=== PATIENT | female | born 1955 | race Caucasian/White ===

== ENCOUNTER 2022-09-27 12:08 | Inpatient (IN) | payer BC, OTHER ==
--- OUTSIDE RECORDS SUMMARY | 2022-09-27 12:16 | XMS REPORT | Continuity of Care Document ---
:1955 Author Organization [facility] t Address [address] [facility] [address] [place] [address] Care Team Providers Name Role Phone [place] PORTER Primary Care Physician [phone] DONN Attending Clinician Unavailable DONN Admitting Clinician Unavailable Payers Payer Name Policy Type Policy Number Effective Date Expiration Date S ilir [employer] [id number] 2022 (MEDICARE 00:00:00 REPLACEMENT HMO) Problems This patient has no known problems. Allergies, Adverse Reactions, Alerts Allergy Allergy Status Severity Reaction(s) Onset Inactive Treating Comm ents Source Name Type Date Date Clinician Sulfa Propensi Active (Sulfona ty to 3-05 mide adverse 00:00: Antibiot reaction 00 ics) to drug Medications Ordered Filled Start Stop Current Ordering Indication Dosage Frequency Signature Comments Components Source Medication Medication Date Date Medication? Clinician (SIG) Name Name Dose 2021-05 No 20 Unknown 2- 00:00: 00 TAKE 2 2021-05 No 250 TABLETS ON 212 DAY 1 THEN 00:00: TAKE 1 00 TABLET A DAY FOR 4 DAYS. PREGABALIN 2021-05 No 300 300 MG 2 CAPSULE</Te 00:00: xt> <Code> 00 <Value>0022 [id number]&amp ;lt;/Value> <CodingSyst em>NDC</Cod ingSystem> </Code> Dose 2021-05 No Unknown 2-12 00:00: 00 Dose 2021-05 No Unknown 2- 00:00: 00 Dose 2021-05 No Unknown 2- 00:00: 00 Dose 2021-05 No Unknown 2- 00:00: 00 INHALE 1 2021-05 No [id number] PUFF TWICE 2-12 5 DAILY. 00:00: 00 INHALE 2 2021-05 [place] [id number] PUFFS EVERY 2-12 4 TO 6 00:00: HOURS 00 NEEDED. PROAIR HFA 2021-05 No 90 MCG 2-12 INHALER</Te 00:00: xt> <Code> 00 <Value>[id number]&amp ;lt;/Value> <CodingSyst em>NDC</Cod ingSystem> </Code> Dose 2021-05 No Unknown 2-12 00:00: 00 AMOX-CLAV 2021-05 No 875-125 MG 2-12 TABLET</Nicolás 00:00: t> <Code> 00 <Value>[id number]</Va lue> <CodingSyst em>NDC</Cod ingSystem> </Code& gt HYDROCHLORO 2021-05 No 25 THIAZIDE 25 2-12 MG 00:00: TAB</Text> 00 <Code> <Value>0017 [id number]</Va lue> <CodingSyst em>NDC</Cod ingSystem> </Code& TAKE 2021-05 No 20 TABLET AT 2-12 BEDTIME. 00:00: 00 Dose 2021-05 No Unknown 2-12 00:00: 00 PREGABALIN 2021-05 No 150 150 MG 2-12 CAPSULE</Te 00:00: xt> <Code> 00 <Value>0022 [id number]&amp ;lt;/Value> <CodingSyst em>NDC</Cod ingSystem> </Code> TAKE 5 ML 2021-05 No [id number] DAILY AT 2-12 BEDTIME. 00:00: 00 TAKE 2021-05 No 160 TABLET 2-12 DAILY. 00:00: 00 TAKE 2021-05 No 300 CAPSULE BY 2-12 MOUTH THREE 00:00: TIMES DAILY 00 Dose 2021-05 No Unknown 2-12 00:00: 00 TAKE 2021-05 No 800 TABLET 4 2-12 TIMES 00:00: DAILY. 00 Dose 2021-05 No Unknown 2-12 00:00: 00 PREGABALIN No 300 MG 9-19 CAPSULE 00:00: 00 PREGABALIN No 300 MG 9-19 CAPSULE 00:00: 00 PREGABALIN 2022-0 No 300 MG 9-19 CAPSULE 00:00: 00 PREGABALIN 2022-0 No 300 MG 9-19 CAPSULE 00:00: 00 Lyrica 150 2022-0 No 1mg mg capsule 8-16 00:00: 00 &lt 2022-0 No 300 8-16 00:00: 00 Dose 2022-0 No 20 Unknown 8- 00:00: 00 Dose 2022-0 No 20 Unknown 8- 00:00: 00 Dose 2022-0 No 20 Unknown 8- 00:00: 00 &lt 2022-0 No 300 8- 00:00: 00 &lt 2022-0 No 300 8- 00:00: 00 Dose 2022-0 No 20 Unknown 8- 00:00: 00 &lt 2022-0 No 300 8- 00:00: 00 Dose 2022-0 No 20 Unknown 8 00:00: 00 Dose 2022-0 No Unknown 8- 00:00: 00 Lyrica 150 2022-0 No 1mg mg capsule 8-16 00:00: 00 &lt 2022-0 No 300 8- 00:00: 00 Dose 2022-0 No 20 Unknown 8- 00:00: 00 Dose 2022-0 No 20 Unknown 8 00:00: 00 Dose 2022-0 No 20 Unknown 8- 00:00: 00 &lt 2022-0 No 300 8- 00:00: 00 &lt 2022-0 No 300 8- 00:00: 00 Dose 2022-0 No 20 Unknown 8- 00:00: 00 &lt 2022-0 No 300 8- 00:00: 00 Dose 2022-0 No 20 Unknown 8- 00:00: 00 Dose 2022-0 No Unknown 8- 00:00: 00 Lyrica 150 2022-0 No 1mg mg capsule 8-16 00:00: 00 &lt 2022-0 No 300 8-16 00:00: 00 Dose 2022-0 No 20 Unknown 8-16 00:00: 00 Dose 2022-0 No 20 Unknown 8- 00:00: 00 Dose 2022-0 No 20 Unknown 8- 00:00: 00 &lt 2022-0 No 300 8- 00:00: 00 &lt 2022-0 No 300 8-16 00:00: 00 Dose 2022-0 No 20 Unknown 8-16 00:00: 00 &lt 2022-0 No 300 8-16 00:00: 00 Dose 2022-0 No 20 Unknown 8-16 00:00: 00 Dose 2022-0 No Unknown 8-16 00:00: 00 Lyrica 150 2022-0 No 1mg mg capsule 8-16 00:00: 00 &lt 2022-0 No 300 8-16 00:00: 00 Dose 2022-0 No 20 Unknown 8-16 00:00: 00 Dose 2022-0 No 20 Unknown 8-16 00:00: 00 Dose 2022-0 No 20 Unknown 8-16 00:00: 00 &lt 2022-0 No 300 8-16 00:00: 00 &lt 2022-0 No 300 8-16 00:00: 00 Dose 2022-0 No 20 Unknown 8-16 00:00: 00 &lt 2022-0 No 300 8-16 00:00: 00 Dose 2022-0 No 20 Unknown 8-16 00:00: 00 Dose 2022-0 No Unknown 8-16 00:00: 00 Dose 2022-0 No 20 Unknown 8-15 00:00: 00 &lt 2022-0 No 300 8-15 00:00: 00 Dose 2022-0 No 20 Unknown 8-15 00:00: 00 &lt 2022-0 No 300 8-15 00:00: 00 Dose 2022-0 No 20 Unknown 8-15 00:00: 00 &lt 2022-0 No 300 8-15 00:00: 00 Dose 2022-0 No 20 Unknown 8-15 00:00: 00 &lt 2022-0 No 300 8-15 00:00: 00 azithromyci 2022-0 No mg n 250 mg 7-15 tablet 00:00: 00 prednisone 2022-0 No mg 20 mg 7-15 tablet 00:00: 00 Lyrica 150 2022-0 No 1mg mg capsule 7-15 00:00: 00 TAKE 1 2022-0 No 875 TABLET BY 7-15 MOUTH TWICE 00:00: DAILY 00 Dose 2022-0 No 250 Unknown 7-15 00:00: 00 &lt 2022-0 No 300 7-15 00:00: 00 azithromyci 2022-0 No mg n 250 mg 7-15 tablet 00:00: 00 prednisone 2022-0 No mg 20 mg 7-15 tablet 00:00: 00 Lyrica 150 2022-0 No 1mg mg capsule 715 00:00: 00 TAKE 1 2022-0 No 875 TABLET BY 7-15 MOUTH TWICE 00:00: DAILY 00 Dose 2022-0 No 250 Unknown 7 00:00: 00 &lt 2022-0 No 300 7-15 00:00: 00 azithromyci 2022-0 No mg n 250 mg 7-15 tablet 00:00: 00 prednisone 2022-0 No mg 20 mg 7-15 tablet 00:00: 00 Lyrica 150 2022-0 No 1mg mg capsule 11-30 00:00: 00 TAKE 1 2022-0 No 875 TABLET BY 7-15 MOUTH TWICE 00:00: DAILY 00 Dose 2022-0 No 250 Unknown 11-30 00:00: 00 &lt 2022-0 No 300 11-30 00:00: 00 azithromyci 2022-0 No mg n 250 mg 7-15 tablet 00:00: 00 prednisone 2022-0 No mg 20 mg 7-15 tablet 00:00: 00 Lyrica 150 2022-0 No 1mg mg capsule 11-30 00:00: 00 TAKE 1 2022-0 No 875 TABLET BY 7-15 MOUTH TWICE 00:00: DAILY 00 Dose 2022-0 No 250 Unknown 11-30 00:00: 00 &lt 2022-0 No 300 11-30 00:00: 00 pregabalin 2022-0 No 1mg 300 mg 7-06 capsule 00:00: 00 &lt 2022-0 No 20 11-21 00:00: 00 TAKE 1 2022-0 No 600 TABLET BY 7-06 MOUTH FOUR 00:00: TIMES DAILY 00 &lt 2022-0 No 300 - 00:00: 00 Dose 2022-0 No 250 Unknown 11-21 00:00: 00 &lt 2022-0 No 20 - 00:00: 00 pregabalin 2022-0 No 1mg 300 mg 7-06 capsule 00:00: 00 &lt 2022-0 No 20 11-21 00:00: 00 TAKE 1 2022-0 No 600 TABLET BY 7-06 MOUTH FOUR 00:00: TIMES DAILY 00 &lt 2022-0 No 300 - 00:00: 00 Dose 2022-0 No 250 Unknown 11-21 00:00: 00 &lt 2022-0 No 20 11-21 00:00: 00 pregabalin 2022-0 No 1mg 300 mg 7- capsule 00:00: 00 &lt 2022-0 No 20 11-21 00:00: 00 TAKE 1 2022-0 No 600 TABLET BY 11-21 MOUTH FOUR 00:00: TIMES DAILY 00 &lt 2022-0 No 300 11-21 00:00: 00 Dose 2022-0 No 250 Unknown 11-21 00:00: 00 &lt 2022-0 No 20 11-21 00:00: 00 pregabalin 2022-0 No 1mg 300 mg 7- capsule 00:00: 00 &lt 2022-0 No 20 11-21 00:00: 00 TAKE 1 2022-0 No 600 TABLET BY 11-21 MOUTH FOUR 00:00: TIMES DAILY 00 &lt 2022-0 No 300 11-21 00:00: 00 Dose 2022-0 No 250 Unknown 11-21 00:00: 00 &lt 2022-0 No 20 11-21 00:00: 00 pregabalin 2022-0 No 1mg 300 mg 6-06 capsule 00:00: 00 &lt 2022-0 No 6-06 00:00: 00 pregabalin 2022-0 No 1mg 300 mg 6-06 capsule 00:00: 00 &lt 2022-0 No 6-06 00:00: 00 pregabalin 2022-0 No 1mg 300 mg 6-06 capsule 00:00: 00 &lt 2022-0 No 6-06 00:00: 00 pregabalin 2022-0 No 1mg 300 mg 6-06 capsule 00:00: 00 &lt 2022-0 No 6-06 00:00: 00 pregabalin 2022-0 No 1mg 300 mg 5-05 capsule 00:00: 00 pregabalin 2022-0 No 1mg 300 mg 5-05 capsule 00:00: 00 pregabalin 2022-0 No 1mg 300 mg 5-05 capsule 00:00: 00 pregabalin 2022-0 No 1mg 300 mg 5-05 capsule 00:00: 00 Dose 2022-0 No Unknown 4-07 00:00: 00 Dose 2022-0 No Unknown 4-07 00:00: 00 Dose 2022-0 No Unknown 4-07 00:00: 00 Dose 2022-0 No Unknown 4-07 00:00: 00 amoxicillin 2-0 No 1mg 875 3-30 mg-potassiu 00:00: m 00 clavulanate 125 mg tablet Bromfed DM 2021-0 No 10mg/5 2 mg-30 3-30 mL mg-10 mg/5 00:00: mL oral 00 syrup Dose 2-0 No Unknown 3-30 00:00: 00 Dose 2022-0 No Unknown 3-30 00:00: 00 Dose 2022-0 No Unknown 3-30 00:00: 00 Dose 2022-0 No Unknown 3-30 00:00: 00 Dose 2022-0 No Unknown 3-30 00:00: 00 Dose 2022-0 No Unknown 3-30 00:00: 00 Dose 2022-0 No Unknown 3-30 00:00: 00 Dose 2022-0 No Unknown 3-30 00:00: 00 Dose 2022-0 No Unknown 3-30 00:00: 00 Dose 2022-0 No Unknown 3-30 00:00: 00 Dose 2022-0 No Unknown 3-30 00:00: 00 Dose 2022-0 No Unknown 3-30 00:00: 00 Dose 2022-0 No Unknown 3-30 00:00: 00 Dose 2022-0 No Unknown 3-30 00:00: 00 Dose 2022-0 No Unknown 3-30 00:00: 00 Dose 2022-0 No Unknown 3-30 00:00: 00 Dose 2022-0 No Unknown 3-30 00:00: 00 Dose 2022-0 No Unknown 3-30 00:00: 00 Dose 2022-0 No Unknown 3-30 00:00: 00 Dose 2022-0 No Unknown 3-30 00:00: 00 Dose 2022-0 No Unknown 3-30 00:00: 00 Dose 2022-0 No Unknown 3-30 00:00: 00 Dose 2022-0 No Unknown 3-30 00:00: 00 Dose 2022-0 No Unknown 3-30 00:00: 00 Dose 2022-0 No Unknown 3-30 00:00: 00 Dose 2022-0 No Unknown 3-30 00:00: 00 Dose 2022-0 No Unknown 3-30 00:00: 00 Dose 2022-0 No Unknown 3-30 00:00: 00 Dose 2022-0 No Unknown 3-30 00:00: 00 Dose 2022-0 No Unknown 3-30 00:00: 00 Dose 2022-0 No Unknown 3-30 00:00: 00 Dose 2022-0 No Unknown 3-30 00:00: 00 Dose 2022-0 No Unknown 3-30 00:00: 00 Dose 2022-0 No Unknown 3-30 00:00: 00 Dose 2022-0 No Unknown 3-30 00:00: 00 Dose 2022-0 No Unknown 3-30 00:00: 00 Dose 2022-0 No Unknown 3-30 00:00: 00 Dose 2022-0 No Unknown 3-30 00:00: 00 Dose 2022-0 No Unknown 3-30 00:00: 00 Dose 2022-0 No Unknown 3-30 00:00: 00 amoxicillin 2-0 No 1mg 875 3-30 mg-potassiu 00:00: m 00 clavulanate 125 mg tablet Bromfed DM 2-0 No 10mg/5 2 mg-30 3-30 mL mg-10 mg/5 00:00: mL oral 00 syrup Dose 2-0 No Unknown 3-30 00:00: 00 Dose 2022-0 No Unknown 3-30 00:00: 00 Dose 2022-0 No Unknown 3-30 00:00: 00 Dose 2022-0 No Unknown 3-30 00:00: 00 Dose 2022-0 No Unknown 3-30 00:00: 00 Dose 2022-0 No Unknown 3-30 00:00: 00 Dose 2022-0 No Unknown 3-30 00:00: 00 Dose 2022-0 No Unknown 3-30 00:00: 00 Dose 2022-0 No Unknown 3-30 00:00: 00 Dose 2022-0 No Unknown 3-30 00:00: 00 Dose 2022-0 No Unknown 3-30 00:00: 00 Dose 2022-0 No Unknown 3-30 00:00: 00 Dose 2022-0 No Unknown 3-30 00:00: 00 Dose 2022-0 No Unknown 3-30 00:00: 00 Dose 2022-0 No Unknown 3-30 00:00: 00 Dose 2022-0 No Unknown 3-30 00:00: 00 Dose 2022-0 No Unknown 3-30 00:00: 00 Dose 2022-0 No Unknown 3-30 00:00: 00 Dose 2022-0 No Unknown 3-30 00:00: 00 Dose 2022-0 No Unknown 3-30 00:00: 00 Dose 2022-0 No Unknown 3-30 00:00: 00 Dose 2022-0 No Unknown 3-30 00:00: 00 Dose 2022-0 No Unknown 3-30 00:00: 00 Dose 2022-0 No Unknown 3-30 00:00: 00 Dose 2022-0 No Unknown 3-30 00:00: 00 Dose 2-0 No Unknown 3-30 00:00: 00 Dose 2022-0 No Unknown 3-30 00:00: 00 Dose 2022-0 No Unknown 3-30 00:00: 00 Dose 2022-0 No Unknown 3-30 00:00: 00 Dose 2022-0 No Unknown 3-30 00:00: 00 Dose 2022-0 No Unknown 3-30 00:00: 00 Dose 2022-0 No Unknown 3-30 00:00: 00 Dose 2022-0 No Unknown 3-30 00:00: 00 Dose 2-0 No Unknown 3-30 00:00: 00 Dose 2022-0 No Unknown 3-30 00:00: 00 Dose 2022-0 No Unknown 3-30 00:00: 00 Dose 2022-0 No Unknown 3-30 00:00: 00 Dose 2022-0 No Unknown 3-30 00:00: 00 Dose 2022-0 No Unknown 3-30 00:00: 00 Dose 2022-0 No Unknown 3-30 00:00: 00 amoxicillin 2-0 No 1mg 875 3-30 mg-potassiu 00:00: m 00 clavulanate 125 mg tablet Bromfed DM 2021-0 No 10mg/5 2 mg-30 3-30 mL mg-10 mg/5 00:00: mL oral 00 syrup Dose 2-0 No Unknown 3-30 00:00: 00 Dose 2022-0 No Unknown 3-30 00:00: 00 Dose 2022-0 No Unknown 3-30 00:00: 00 Dose 2022-0 No Unknown 3-30 00:00: 00 Dose 2022-0 No Unknown 3-30 00:00: 00 Dose 2022-0 No Unknown 3-30 00:00: 00 Dose 2022-0 No Unknown 3-30 00:00: 00 Dose 2022-0 No Unknown 3-30 00:00: 00 Dose 2022-0 No Unknown 3-30 00:00: 00 Dose 2022-0 No Unknown 3-30 00:00: 00 Dose 2022-0 No Unknown 3-30 00:00: 00 Dose 2022-0 No Unknown 3-30 00:00: 00 amoxicillin 2022-0 No 1mg 875 3-30 mg-potassiu 00:00: m 00 clavulanate 125 mg tablet Bromfed DM 2-0 No 10mg/5 2 mg-30 3-30 mL mg-10 mg/5 00:00: mL oral 00 syrup Dose 2-0 No Unknown 3-30 00:00: 00 Dose 2022-0 No Unknown 3-30 00:00: 00 Dose 2022-0 No Unknown 3-30 00:00: 00 Dose 2022-0 No Unknown 3-30 00:00: 00 Dose 2022-0 No Unknown 3-30 00:00: 00 Dose 2022-0 No Unknown 3-30 00:00: 00 Dose 2022-0 No Unknown 3-30 00:00: 00 Dose 2022-0 No Unknown 3-30 00:00: 00 Dose 2022-0 No Unknown 3-30 00:00: 00 Dose 2022-0 No Unknown 3-30 00:00: 00 Dose 2022-0 No Unknown 3-30 00:00: 00 Dose 2022-0 No Unknown 3-30 00:00: 00 Dose 2022-0 No Unknown 3-30 00:00: 00 Dose 2022-0 No Unknown 3-30 00:00: 00 Dose 2022-0 No Unknown 3-30 00:00: 00 Dose 2022-0 No Unknown 3-30 00:00: 00 Dose 2022-0 No Unknown 3-30 00:00: 00 Dose 2022-0 No Unknown 3-30 00:00: 00 Dose 2022-0 No Unknown 3-30 00:00: 00 Dose 2022-0 No Unknown 3-30 00:00: 00 Dose 2022-0 No Unknown 3-30 00:00: 00 Dose 2022-0 No Unknown 3-30 00:00: 00 Dose 2022-0 No Unknown 3-30 00:00: 00 Dose 2022-0 No Unknown 3-30 00:00: 00 Dose 2022-0 No Unknown 3-30 00:00: 00 Dose 2022-0 No Unknown 3-30 00:00: 00 Dose 2022-0 No Unknown 3-30 00:00: 00 Dose 2022-0 No Unknown 3-30 00:00: 00 Dose 2022-0 No Unknown 3-30 00:00: 00 Dose 2022-0 No Unknown 3-30 00:00: 00 Dose 2022-0 No Unknown 3-30 00:00: 00 Dose 2022-0 No Unknown 3-30 00:00: 00 Dose 2022-0 No Unknown 3-30 00:00: 00 Dose 2022-0 No Unknown 3-30 00:00: 00 Dose 2022-0 No Unknown 3-30 00:00: 00 Dose 2022-0 No Unknown 3-30 00:00: 00 Dose 2022-0 No Unknown 3-30 00:00: 00 Dose 2022-0 No Unknown 3-30 00:00: 00 Dose 2022-0 No Unknown 3-30 00:00: 00 Dose 2022-0 No Unknown 3-30 00:00: 00 Dose 2022-0 No Unknown 3-30 00:00: 00 Dose 2022-0 No Unknown 3-30 00:00: 00 Dose 2022-0 No Unknown 3-30 00:00: 00 Dose 2022-0 No Unknown 3-30 00:00: 00 Dose 2022-0 No Unknown 3-30 00:00: 00 Dose 2022-0 No Unknown 3-30 00:00: 00 Dose 2022-0 No Unknown 3-30 00:00: 00 Dose 2022-0 No Unknown 3-30 00:00: 00 Dose 2022-0 No Unknown 3-30 00:00: 00 Dose 2022-0 No Unknown 3-30 00:00: 00 Dose 2022-0 No Unknown 3-30 00:00: 00 Dose 2022-0 No Unknown 3-30 00:00: 00 Dose 2022-0 No Unknown 3-30 00:00: 00 Dose 2022-0 No Unknown 3-30 00:00: 00 Dose 2022-0 No Unknown 3-30 00:00: 00 Dose 2022-0 No Unknown 3-30 00:00: 00 Dose 2022-0 No Unknown 3-30 00:00: 00 Dose 2022-0 No Unknown 3-30 00:00: 00 Dose 2022-0 No Unknown 3-30 00:00: 00 Dose 2022-0 No Unknown 3-30 00:00: 00 Dose 2022-0 No Unknown 3-30 00:00: 00 Dose 2022-0 No Unknown 3-30 00:00: 00 Dose 2022-0 No Unknown 3-30 00:00: 00 Dose 2022-0 No Unknown 3-30 00:00: 00 Dose 2022-0 No Unknown 3-30 00:00: 00 Dose 2022-0 No Unknown 3-30 00:00: 00 Dose 2022-0 No Unknown 3-30 00:00: 00 Dose 2022-0 No Unknown 3-30 00:00: 00 Dose 2022-0 No Unknown 3-07 00:00: 00 Dose 2022-0 No Unknown 3-07 00:00: 00 Dose 2022-0 No Unknown 3-07 00:00: 00 Dose 2022-0 No Unknown 3-07 00:00: 00 albuterol 2-0 No 12mcg/a sulfate HFA 2-12 ctuatio 90 00:00: n mcg/actuati 00 on aerosol inhaler albuterol 2-0 No 12mcg/a sulfate HFA 2-12 ctuatio 90 00:00: n mcg/actuati 00 on aerosol inhaler albuterol 2-0 No 12mcg/a sulfate HFA 2-12 ctuatio 90 00:00: n mcg/actuati 00 on aerosol inhaler albuterol 2-0 No 12mcg/a sulfate HFA 2-12 ctuatio 90 00:00: n mcg/actuati 00 on aerosol inhaler pregabalin 2-0 No 1mg 300 mg 2-09 capsule 00:00: 00 pregabalin 2022-0 No 1mg 300 mg 2-09 capsule 00:00: 00 pregabalin 2022-0 No 1mg 300 mg 2-09 capsule 00:00: 00 pregabalin 2022-0 No 1mg 300 mg 2-09 capsule 00:00: 00 ProAir HFA 2022-0 No 12mcg/a 90 1-12 ctuatio mcg/actuati 00:00: n on aerosol 00 inhaler azithromyci 2-0 No mg n 250 mg 1-12 tablet 00:00: 00 prednisone 2022-0 No mg 20 mg 1-12 tablet 00:00: 00 pregabalin 2022-0 No 1mg 300 mg 1-12 capsule 00:00: 00 Bromfed DM 2-0 No 5mg/5 2 mg-30 1-12 mL mg-10 mg/5 00:00: mL oral 00 syrup ipratropium 2-0 No 3mg 0.5 1-12 base)/3 mg-albutero 00:00: mL l 3 mg (2.5 00 mg base)/3 mL nebulizatio n soln ProAir HFA 2-0 No 12mcg/a 90 1-12 ctuatio mcg/actuati 00:00: n on aerosol 00 inhaler azithromyci 2-0 No mg n 250 mg 1-12 tablet 00:00: 00 prednisone 2022-0 No mg 20 mg 1-12 tablet 00:00: 00 ProAir HFA 2-0 No 12mcg/a 90 1-12 ctuatio mcg/actuati 00:00: n on aerosol 00 inhaler azithromyci 2-0 No mg n 250 mg 1-12 tablet 00:00: 00 prednisone 2022-0 No mg 20 mg 1-12 tablet 00:00: 00 pregabalin 2022-0 No 1mg 300 mg 1-12 capsule 00:00: 00 Bromfed DM 2-0 No 5mg/5 2 mg-30 1-12 mL mg-10 mg/5 00:00: mL oral 00 syrup ipratropium 2-0 No 3mg 0.5 1-12 base)/3 mg-albutero 00:00: mL l 3 mg (2.5 00 mg base)/3 mL nebulizatio n soln pregabalin 2-0 No 1mg 300 mg 1-12 capsule 00:00: 00 Bromfed DM 2022-0 No 5mg/5 2 mg-30 1-12 mL mg-10 mg/5 00:00: mL oral 00 syrup ipratropium 2-0 No 3mg 0.5 1-12 base)/3 mg-albutero 00:00: mL l 3 mg (2.5 00 mg base)/3 mL nebulizatio n soln ProAir HFA 2021-0 No 12mcg/a 90 1-12 ctuatio mcg/actuati 00:00: n on aerosol 00 inhaler azithromyci 2021-0 No mg n 250 mg 1-12 tablet 00:00: 00 prednisone 2-0 No mg 20 mg 1-12 tablet 00:00: 00 pregabalin 2021-0 No 1mg 300 mg 1-12 capsule 00:00: 00 Bromfed DM 2021-0 No 5mg/5 2 mg-30 1-12 mL mg-10 mg/5 00:00: mL oral 00 syrup ipratropium 2021-0 No 3mg 0.5 1-12 base)/3 mg-albutero 00:00: mL l 3 mg (2.5 00 mg base)/3 mL nebulizatio n soln pregabalin 2020-1 No 1mg 300 mg 2-16 capsule 00:00: 00 pregabalin 2020-1 No 1mg 300 mg 2-16 capsule 00:00: 00 pregabalin 2020-1 No 1mg 300 mg 2-16 capsule 00:00: 00 pregabalin 2020-1 No 1mg 300 mg 2-16 capsule 00:00: 00 ProAir HFA 2020-1 No 12mcg/a 90 1-17 ctuatio mcg/actuati 00:00: n on aerosol 00 inhaler pregabalin 2020-1 No 1mg 300 mg 1-17 capsule 00:00: 00 ProAir HFA 2020-1 No 12mcg/a 90 1-17 ctuatio mcg/actuati 00:00: n on aerosol 00 inhaler pregabalin 2020-1 No 1mg 300 mg 1-17 capsule 00:00: 00 ProAir HFA 2020-1 No 12mcg/a 90 1-17 ctuatio mcg/actuati 00:00: n on aerosol 00 inhaler pregabalin 1-1 No 1mg 300 mg 1-17 capsule 00:00: 00 ProAir HFA 2020-1 No 12mcg/a 90 1-17 ctuatio mcg/actuati 00:00: n on aerosol 00 inhaler pregabalin 1-1 No 1mg 300 mg 1-17 capsule 00:00: 00 gabapentin 2021-1 No 1mg 600 mg 0-05 tablet 00:00: 00 prednisone 2021-1 No mg 20 mg 0-05 tablet 00:00: 00 gabapentin 2021-1 No 1mg 300 mg 0-05 capsule 00:00: 00 gabapentin 2021-1 No 1mg 600 mg 0-05 tablet 00:00: 00 prednisone 2021-1 No mg 20 mg 0-05 tablet 00:00: 00 gabapentin 1-1 No 1mg 300 mg 0-05 capsule 00:00: 00 gabapentin 1-1 No 1mg 600 mg 0-05 tablet 00:00: 00 prednisone 1-1 No mg 20 mg 0-05 tablet 00:00: 00 gabapentin 1-1 No 1mg 300 mg 0-05 capsule 00:00: 00 gabapentin 1-1 No 1mg 600 mg 0-05 tablet 00:00: 00 prednisone 1-1 No mg 20 mg 0-05 tablet 00:00: 00 gabapentin 1-1 No 1mg 300 mg 0-05 capsule 00:00: 00 ProAir HFA 1-0 No 12mcg/a 90 8-06 ctuatio mcg/actuati 00:00: n on aerosol 00 inhaler ProAir HFA 2020-0 No 12mcg/a 90 8-06 ctuatio mcg/actuati 00:00: n on aerosol 00 inhaler amoxicillin 1-0 No 1mg 875 8-06 mg-potassiu 00:00: m 00 clavulanate 125 mg tablet Dose 1-0 No Unknown 8-06 00:00: 00 gabapentin 2021-0 No 1mg 600 mg 8-06 tablet 00:00: 00 gabapentin 2021-0 No 1mg 600 mg 8-06 tablet 00:00: 00 prednisone 2021-0 No mg 20 mg 8-06 tablet 00:00: 00 prednisone 2021-0 No mg 20 mg 8-06 tablet 00:00: 00 gabapentin 2021-0 No 1mg 300 mg 8-06 capsule 00:00: 00 gabapentin 2021-0 No 1mg 300 mg 8-06 capsule 00:00: 00 ProAir HFA 1-0 No 12mcg/a 90 8-06 ctuatio mcg/actuati 00:00: n on aerosol 00 inhaler ProAir HFA 1-0 No 12mcg/a 90 8-06 ctuatio mcg/actuati 00:00: n on aerosol 00 inhaler amoxicillin 1-0 No 1mg 875 8-06 mg-potassiu 00:00: m 00 clavulanate 125 mg tablet Dose 1-0 No Unknown 8-06 00:00: 00 gabapentin 2021-0 No 1mg 600 mg 8-06 tablet 00:00: 00 gabapentin 2021-0 No 1mg 600 mg 8-06 tablet 00:00: 00 prednisone 2021-0 No mg 20 mg 8-06 tablet 00:00: 00 prednisone 2021-0 No mg 20 mg 8-06 tablet 00:00: 00 gabapentin 2021-0 No 1mg 300 mg 8-06 capsule 00:00: 00 gabapentin 2021-0 No 1mg 300 mg 8-06 capsule 00:00: 00 ProAir HFA 2020-0 No 12mcg/a 90 8-06 ctuatio mcg/actuati 00:00: n on aerosol 00 inhaler ProAir HFA 2020-0 No 12mcg/a 90 8-06 ctuatio mcg/actuati 00:00: n on aerosol 00 inhaler amoxicillin 1-0 No 1mg 875 8-06 mg-potassiu 00:00: m 00 clavulanate 125 mg tablet Dose 2021-0 No Unknown 8-06 00:00: 00 gabapentin 2021-0 No 1mg 600 mg 8-06 tablet 00:00: 00 gabapentin 2021-0 No 1mg 600 mg 8-06 tablet 00:00: 00 prednisone 2021-0 No mg 20 mg 8-06 tablet 00:00: 00 prednisone 2021-0 No mg 20 mg 8-06 tablet 00:00: 00 gabapentin 2021-0 No 1mg 300 mg 8-06 capsule 00:00: 00 gabapentin 2021-0 No 1mg 300 mg 8-06 capsule 00:00: 00 ProAir HFA 1-0 No 12mcg/a 90 8-06 ctuatio mcg/actuati 00:00: n on aerosol 00 inhaler ProAir HFA 2021-0 No 12mcg/a 90 8-06 ctuatio mcg/actuati 00:00: n on aerosol 00 inhaler amoxicillin 1-0 No 1mg 875 8-06 mg-potassiu 00:00: m 00 clavulanate 125 mg tablet Dose 1-0 No Unknown 8-06 00:00: 00 gabapentin 2021-0 No 1mg 600 mg 8-06 tablet 00:00: 00 gabapentin 2021-0 No 1mg 600 mg 8-06 tablet 00:00: 00 prednisone 2021-0 No mg 20 mg 8-06 tablet 00:00: 00 prednisone 2021-0 No mg 20 mg 8-06 tablet 00:00: 00 gabapentin 2021-0 No 1mg 300 mg 8-06 capsule 00:00: 00 gabapentin 2021-0 No 1mg 300 mg 8-06 capsule 00:00: 00 gabapentin 2021-0 No 1mg 600 mg 5-20 tablet 00:00: 00 gabapentin 2021-0 No 1mg 300 mg 5-20 capsule 00:00: 00 gabapentin 2021-0 No 1mg 600 mg 5-20 tablet 00:00: 00 gabapentin 2021-0 No 1mg 300 mg 5-20 capsule 00:00: 00 gabapentin 2021-0 No 1mg 600 mg 5-20 tablet 00:00: 00 gabapentin 2021-0 No 1mg 300 mg 5-20 capsule 00:00: 00 gabapentin 2021-0 No 1mg 600 mg 5-20 tablet 00:00: 00 gabapentin 2021-0 No 1mg 300 mg 5-20 capsule 00:00: 00 gabapentin 2021-0 No 1mg 600 mg 2-23 tablet 00:00: 00 prednisone 2021-0 No mg 20 mg 2-23 tablet 00:00: 00 gabapentin 2021-0 No 1mg 300 mg 2-23 capsule 00:00: 00 ipratropium 2021-0 No 3mg 0.5 2-23 base)/3 mg-albutero 00:00: mL l 3 mg (2.5 00 mg base)/3 mL nebulizatio n soln gabapentin 2021-0 No 1mg 600 mg 2-23 tablet 00:00: 00 prednisone 2021-0 No mg 20 mg 2-23 tablet 00:00: 00 gabapentin 2021-0 No 1mg 300 mg 2-23 capsule 00:00: 00 ipratropium 2021-0 No 3mg 0.5 2-23 base)/3 mg-albutero 00:00: mL l 3 mg (2.5 00 mg base)/3 mL nebulizatio n soln gabapentin 2021-0 No 1mg 600 mg 2-23 tablet 00:00: 00 prednisone 2021-0 No mg 20 mg 2-23 tablet 00:00: 00 gabapentin 2021-0 No 1mg 300 mg 2-23 capsule 00:00: 00 ipratropium 1-0 No 3mg 0.5 2-23 base)/3 mg-albutero 00:00: mL l 3 mg (2.5 00 mg base)/3 mL nebulizatio n soln gabapentin 1-0 No 1mg 600 mg 2-23 tablet 00:00: 00 prednisone 1-0 No mg 20 mg 2-23 tablet 00:00: 00 gabapentin 1-0 No 1mg 300 mg 2-23 capsule 00:00: 00 ipratropium 1-0 No 3mg 0.5 2-23 base)/3 mg-albutero 00:00: mL l 3 mg (2.5 00 mg base)/3 mL nebulizatio n soln amoxicillin 1-0 No 1mg 875 1-14 mg-potassiu 00:00: m 00 clavulanate 125 mg tablet amoxicillin 1-0 No 1mg 875 1-14 mg-potassiu 00:00: m 00 clavulanate 125 mg tablet amoxicillin 1-0 No 1mg 875 1-14 mg-potassiu 00:00: m 00 clavulanate 125 mg tablet amoxicillin 1-0 No 1mg 875 1-14 mg-potassiu 00:00: m 00 clavulanate 125 mg tablet ProAir HFA 2020-0 No 12mcg/a 90 1-04 ctuatio mcg/actuati 00:00: n on aerosol 00 inhaler Combivent 2020-0 No 1mcg/ac Respimat 20 1-04 tuation mcg-100 00:00: mcg/actuati 00 on solution for inhalation prednisone 2020-0 No mg 20 mg 1-04 tablet 00:00: 00 ipratropium 1-0 No 3mg 0.5 1-04 base)/3 mg-albutero 00:00: mL l 3 mg (2.5 00 mg base)/3 mL nebulizatio n soln ProAir HFA 2020-0 No 12mcg/a 90 1-04 ctuatio mcg/actuati 00:00: n on aerosol 00 inhaler Combivent 2020-0 No 1mcg/ac Respimat 20 1-04 tuation mcg-100 00:00: mcg/actuati 00 on solution for inhalation prednisone 2020-0 No mg 20 mg -04 tablet 00:00: 00 ipratropium 2020-0 No 3mg 0.5 1-04 base)/3 mg-albutero 00:00: mL l 3 mg (2.5 00 mg base)/3 mL nebulizatio n soln ProAir HFA 2020-0 No 12mcg/a 90 -04 ctuatio mcg/actuati 00:00: n on aerosol 00 inhaler Combivent 2020-0 No 1mcg/ac Respimat 20 -04 tuation mcg-100 00:00: mcg/actuati 00 on solution for inhalation prednisone 2020-0 No mg 20 mg -04 tablet 00:00: 00 ipratropium 2020-0 No 3mg 0.5 1-04 base)/3 mg-albutero 00:00: mL l 3 mg (2.5 00 mg base)/3 mL nebulizatio n soln ProAir HFA 2020-0 No 12mcg/a 90 -04 ctuatio mcg/actuati 00:00: n on aerosol 00 inhaler Combivent 2020-0 No 1mcg/ac Respimat 20 -04 tuation mcg-100 00:00: mcg/actuati 00 on solution for inhalation prednisone 2020-0 No mg 20 mg 1-04 tablet 00:00: 00 ipratropium 1-0 No 3mg 0.5 1-04 base)/3 mg-albutero 00:00: mL l 3 mg (2.5 00 mg base)/3 mL nebulizatio n soln ProAir HFA 2019-05 No 12mcg/a 90 1-24 ctuatio mcg/actuati 00:00: n on aerosol 00 inhaler ProAir HFA 2019-05 No 12mcg/a 90 1-24 ctuatio mcg/actuati 00:00: n on aerosol 00 inhaler ProAir HFA 2019-05 No 12mcg/a 90 1-24 ctuatio mcg/actuati 00:00: n on aerosol 00 inhaler ProAir HFA 2019-05 No 12mcg/a 90 1-24 ctuatio mcg/actuati 00:00: n on aerosol 00 inhaler ProAir 2019-05 No 1mcg/ac RespiClick 1-23 tuation 90 00:00: mcg/actuati 00 on breath activated gabapentin 2019-05 No 1mg 600 mg 1-23 tablet 00:00: 00 gabapentin 2019- No 1mg 300 mg 1-23 capsule 00:00: 00 ProAir 2019-05 No 1mcg/ac RespiClick 1-23 tuation 90 00:00: mcg/actuati 00 on breath activated gabapentin 2019-05 No 1mg 600 mg 1-23 tablet 00:00: 00 gabapentin 2019- No 1mg 300 mg 1-23 capsule 00:00: 00 ProAir 2019-05 No 1mcg/ac RespiClick 1-23 tuation 90 00:00: mcg/actuati 00 on breath activated gabapentin 2019-05 No 1mg 600 mg 1-23 tablet 00:00: 00 gabapentin 2019- No 1mg 300 mg 1-23 capsule 00:00: 00 ProAir 2019-05 No 1mcg/ac RespiClick 1-23 tuation 90 00:00: mcg/actuati 00 on breath activated gabapentin 2019-05 No 1mg 600 mg 1-23 tablet 00:00: 00 gabapentin 2019- No 1mg 300 mg 1-23 capsule 00:00: 00 Combivent 2019-0 No 1mcg/ac Respimat 20 9-03 tuation mcg-100 00:00: mcg/actuati 00 on solution for inhalation Advair No 1mcg/do Diskus 250 9-03 se mcg-50 00:00: mcg/dose 00 powder for inhalation Advair 2020-0 No 1mcg/do Diskus 250 9-03 se mcg-50 00:00: mcg/dose 00 powder for inhalation gabapentin 2020-0 No 1mg 600 mg 9-03 tablet 00:00: 00 gabapentin 2020-0 No 1mg 300 mg 9-03 capsule 00:00: 00 albuterol 2020-0 No 3mg/3 sulfate 9-03 mL 1.25 mg/3 00:00: mL solution 00 for nebulizatio n ProAir 2020-0 No 1mcg/ac RespiClick 01-19 tuation 90 00:00: mcg/actuati 00 on breath activated Combivent 2020-0 No 1mcg/ac Respimat 20 903 tuation mcg-100 00:00: mcg/actuati 00 on solution for inhalation Advair 2020-0 No 1mcg/do Diskus 250 9-03 se mcg-50 00:00: mcg/dose 00 powder for inhalation Advair 2020-0 No 1mcg/do Diskus 250 9-03 se mcg-50 00:00: mcg/dose 00 powder for inhalation gabapentin 2020-0 No 1mg 600 mg 9-03 tablet 00:00: 00 gabapentin 2020-0 No 1mg 300 mg 9-03 capsule 00:00: 00 albuterol 2020-0 No 3mg/3 sulfate 9-03 mL 1.25 mg/3 00:00: mL solution 00 for nebulizatio n ProAir 2020-0 No 1mcg/ac RespiClick 01-19 tuation 90 00:00: mcg/actuati 00 on breath activated Combivent 2020-0 No 1mcg/ac Respimat 20 903 tuation mcg-100 00:00: mcg/actuati 00 on solution for inhalation Advair 2020-0 No 1mcg/do Diskus 250 9-03 se mcg-50 00:00: mcg/dose 00 powder for inhalation Advair 2020-0 No 1mcg/do Diskus 250 9-03 se mcg-50 00:00: mcg/dose 00 powder for inhalation gabapentin 2020-0 No 1mg 600 mg 9-03 tablet 00:00: 00 gabapentin 2020-0 No 1mg 300 mg 9-03 capsule 00:00: 00 albuterol 2020-0 No 3mg/3 sulfate 9-03 mL 1.25 mg/3 00:00: mL solution 00 for nebulizatio n ProAir 2020-0 No 1mcg/ac RespiClick 9 tuation 90 00:00: mcg/actuati 00 on breath activated Combivent 2020-0 No 1mcg/ac Respimat 20 9-03 tuation mcg-100 00:00: mcg/actuati 00 on solution for inhalation Advair 2020-0 No 1mcg/do Diskus 250 9-03 se mcg-50 00:00: mcg/dose 00 powder for inhalation Advair 2020-0 No 1mcg/do Diskus 250 9-03 se mcg-50 00:00: mcg/dose 00 powder for inhalation gabapentin 2020-0 No 1mg 600 mg 9-03 tablet 00:00: 00 gabapentin 2020-0 No 1mg 300 mg 9-03 capsule 00:00: 00 albuterol 2020-0 No 3mg/3 sulfate 9-03 mL 1.25 mg/3 00:00: mL solution 00 for nebulizatio n ProAir 2020-0 No 1mcg/ac RespiClick 01-19 tuation 90 00:00: mcg/actuati 00 on breath activated gabapentin 2020-0 No 1mg 600 mg 8-14 tablet 00:00: 00 gabapentin 2020-0 No 1mg 600 mg 8-14 tablet 00:00: 00 gabapentin 2020-0 No 1mg 600 mg 8-14 tablet 00:00: 00 gabapentin 2020-0 No 1mg 600 mg 8-14 tablet 00:00: 00 gabapentin 2020-0 No 1mg 300 mg 8-03 capsule 00:00: 00 gabapentin 2020-0 No 1mg 300 mg 8-03 capsule 00:00: 00 gabapentin 2020-0 No 1mg 300 mg 8-03 capsule 00:00: 00 gabapentin 2020-0 No 1mg 300 mg 8-03 capsule 00:00: 00 gabapentin 2020-0 No 1mg 600 mg 7-15 tablet 00:00: 00 gabapentin 2020-0 No 1mg 600 mg 7-15 tablet 00:00: 00 gabapentin 2020-0 No 1mg 600 mg 7-15 tablet 00:00: 00 gabapentin 2020-0 No 1mg 600 mg 7-15 tablet 00:00: 00 amoxicillin 2019-0 No 1mg 500 mg 3-05 tablet 00:00: 00 prednisone 2019-0 No 1mg 20 mg 3-05 tablet 00:00: 00 amoxicillin 2019-0 No 1mg 500 mg 3-05 tablet 00:00: 00 amoxicillin 2019-0 No 1mg 500 mg 3-05 tablet 00:00: 00 prednisone 2019-0 No 1mg 20 mg 3-05 tablet 00:00: 00 prednisone 2019-0 No 1mg 20 mg 3-05 tablet 00:00: 00 amoxicillin 2019-0 No 1mg 500 mg 3-05 tablet 00:00: 00 prednisone 2019-0 No 1mg 20 mg 3-05 tablet 00:00: 00 Vital Signs Vital Name Observation Time Observation Value Comments Source BP Systolic 2022-03-26 10:04:00 148 mm[Hg] BP Diastolic 2022-03-26 10:04:00 85 mm[Hg] Weight Measured 2022-03-26 10:04:00 153.40 pounds Height Measured 2022-03-26 10:04:00 60.00 inches Body Temperature 2022-03-26 10:04:00 98.30 degrees Heart Rate 2022-03-26 10:04:00 94.00 /min Respiratory Rate 2022-03-26 10:04:00 18.00 /min BP Systolic 2022-02-25 11:08:00 151 mm[Hg] BP Diastolic 2022-02-25 11:08:00 77 mm[Hg] Weight Measured 2022-02-25 11:08:00 151.80 pounds Height Measured 2022-02-25 11:08:00 60.00 inches Body Temperature 2022-02-25 11:08:00 98.10 degrees Heart Rate 2022-02-25 11:08:00 95.00 /min Respiratory Rate 2022-02-25 11:08:00 BP Systolic 2021-11-30 11:14:00 137 mm[Hg] BP Diastolic 2021-11-30 11:14:00 78 mm[Hg] Weight Measured 2021-11-30 11:14:00 144.20 pounds Height Measured 2021-11-30 11:14:00 60.00 inches Body Temperature 2021-11-30 11:14:00 98.00 degrees Heart Rate 2021-11-30 11:14:00 84.00 /min Respiratory Rate 2021-11-30 11:14:00 18.00 /min BP Systolic 2021-08-15 11:36:00 120 mm[Hg] BP Diastolic 2021-08-15 11:36:00 71 mm[Hg] Weight Measured 2021-08-15 11:36:00 Height Measured 2021-08-15 11:36:00 Body Temperature 2021-08-15 11:36:00 Heart Rate 2021-08-15 11:36:00 Respiratory Rate 2021-08-15 11:36:00 BP Systolic 2021-05-30 10:32:00 135 mm[Hg] BP Diastolic 2021-05-30 10:32:00 77 mm[Hg] Weight Measured 2021-05-30 10:32:00 145.80 pounds Height Measured 2021-05-30 10:32:00 60.00 inches Body Temperature 2021-05-30 10:32:00 97.20 degrees Heart Rate 2021-05-30 10:32:00 94.00 /min Respiratory Rate 2021-05-30 10:32:00 16.00 /min BP Systolic 2021-04-04 14:16:00 169 mm[Hg] BP Diastolic 2021-04-04 14:16:00 79 mm[Hg] Weight Measured 2021-04-04 14:16:00 144.20 pounds Height Measured 2021-04-04 14:16:00 60.00 inches Body Temperature 2021-04-04 14:16:00 98.20 degrees Heart Rate 2021-04-04 14:16:00 98.00 /min Respiratory Rate 2021-04-04 14:16:00 16.00 /min BP Systolic 2021-02-20 14:46:00 BP Diastolic 2021-02-20 14:46:00 Weight Measured 2021-02-20 14:46:00 130.00 pounds Height Measured 2021-02-20 14:46:00 60.00 inches Body Temperature 2021-02-20 14:46:00 Heart Rate 2021-02-20 14:46:00 Respiratory Rate 2021-02-20 14:46:00 BP Systolic 2020-12-22 14:19:00 BP Diastolic 2020-12-22 14:19:00 Weight Measured 2020-12-22 14:19:00 130.00 pounds Height Measured 2020-12-22 14:19:00 60.00 inches Body Temperature 2020-12-22 14:19:00 Heart Rate 2020-12-22 14:19:00 Respiratory Rate 2020-12-22 14:19:00 BP Systolic 2020-04-10 13:58:00 127 mm[Hg] BP Diastolic 2020-04-10 13:58:00 76 mm[Hg] Weight Measured 2020-04-10 13:58:00 134.60 pounds Height Measured 2020-04-10 13:58:00 60.00 inches Body Temperature 2020-04-10 13:58:00 98.10 degrees Heart Rate 2020-04-10 13:58:00 84.00 /min Respiratory Rate 2020-04-10 13:58:00 17.00 /min BP Systolic 2020-01-20 13:34:00 131 mm[Hg] BP Diastolic 2020-01-20 13:34:00 75 mm[Hg] Weight Measured 2020-01-20 13:34:00 140.60 pounds Height Measured 2020-01-20 13:34:00 60.00 inches Body Temperature 2020-01-20 13:34:00 98.60 degrees Heart Rate 2020-01-20 13:34:00 116.00 /min Respiratory Rate 2020-01-20 13:34:00 17.00 /min BP Systolic 2019-12-20 14:00:00 125 mm[Hg] BP Diastolic 2019-12-20 14:00:00 74 mm[Hg] Weight Measured 2019-12-20 14:00:00 145.80 pounds Height Measured 2019-12-20 14:00:00 60.00 inches Body Temperature 2019-12-20 14:00:00 98.50 degrees Heart Rate 2019-12-20 14:00:00 80.00 /min Respiratory Rate 2019-12-20 14:00:00 16.00 /min Procedures This patient has no known procedures. Plan of Care Planned Activity Planned Date Details Comments Source Goal Plan of Care Note [code = 50369-3] Goal Plan of Care Note [code = 01859-7] Goal Plan of Care Note [code = 73586-5] Goal Plan of Care Note [code = 64337-9] Goal Plan of Care Note [code = 23456-1] Goal Plan of Care Note [code = 68260-2] Goal Plan of Care Note [code = 21082-8] Goal Plan of Care Note [code = 11001-0] Goal Plan of Care Note [code = 17187-8] Goal Plan of Care Note [code = 00304-9] Goal Plan of Care Note [code = 11774-5] Goal Plan of Care Note [code = 61591-5] Goal Plan of Care Note [code = 27184-4] Goal Plan of Care Note [code = 16470-6] Goal Plan of Care Note [code = 15808-7] Goal Plan of Care Note [code = 34041-0] Goal Plan of Care Note [code = 91793-0] Goal Plan of Care Note [code = 61299-1] Goal Plan of Care Note [code = 13707-9] Goal Plan of Care Note [code = 44742-5] Goal Plan of Care Note [code = 71905-9] Goal Plan of Care Note [code = 30923-4] Goal Plan of Care Note [code = 47858-4] Goal Plan of Care Note [code = 35227-7] Goal Plan of Care Note [code = 48522-8] Goal Plan of Care Note [code = 91176-1] Goal Plan of Care Note [code = 28831-4] Goal Plan of Care Note [code = 79647-7] Goal Plan of Care Note [code = 06262-9] Goal Plan of Care Note [code = 58646-9] Goal Plan of Care Note [code = 33769-0] Goal Plan of Care Note [code = 59171-3] Goal Plan of Care Note [code = 96242-4] Goal Plan of Care Note [code = 36600-8] Goal Plan of Care Note [code = 61126-3] Goal Plan of Care Note [code = 96607-4] Goal Plan of Care Note [code = 66360-9] Goal Plan of Care Note [code = 99070-1] Goal Plan of Care Note [code = 84698-3] Goal Plan of Care Note [code = 36518-2] Goal Plan of Care Note [code = 96202-7] Goal Plan of Care Note [code = 53686-6] Goal Plan of Care Note [code = 52738-0] Goal Plan of Care Note [code = 00107-7] Goal Plan of Care Note [code = 43606-5] Goal Plan of Care Note [code = 78955-7] Goal Plan of Care Note [code = 36873-8] Goal Plan of Care Note [code = 81521-6] Goal Plan of Care Note [code = 94706-1] Goal Plan of Care Note [code = 63367-9] Goal Plan of Care Note [code = 12545-7] Goal Plan of Care Note [code = 77603-3] Goal Plan of Care Note [code = 73883-6] Goal Plan of Care Note [code = 73479-6] Goal Plan of Care Note [code = 23057-1] Goal Plan of Care Note [code = 18172-3] Goal Plan of Care Note [code = 66991-5] Goal Plan of Care Note [code = 37035-9] Goal Plan of Care Note [code = 39602-4] Goal Plan of Care Note [code = 76627-4] Goal Plan of Care Note [code = 88939-7] Goal Plan of Care Note [code = 84348-2] Goal Plan of Care Note [code = 27810-3] Goal Plan of Care Note [code = 33108-3] Goal Plan of Care Note [code = 80469-3] Goal Plan of Care Note [code = 14898-9] Goal Plan of Care Note [code = 65246-2] Goal Plan of Care Note [code = 76086-8] Goal Plan of Care Note [code = 26461-9] Goal Plan of Care Note [code = 09150-5] Goal Plan of Care Note [code = 86564-6] Goal Plan of Care Note [code = 58503-5] Goal Plan of Care Note [code = 75881-6] Goal Plan of Care Note [code = 77567-9] Goal Plan of Care Note [code = 22515-0] Goal Plan of Care Note [code = 92012-4] Goal Plan of Care Note [code = 62039-8] Goal Plan of Care Note [code = 66422-7] Goal Plan of Care Note [code = 28660-9] Goal Plan of Care Note [code = 66955-1] Goal Plan of Care Note [code = 81973-7] Goal Plan of Care Note [code = 61947-2] Goal Plan of Care Note [code = 55344-4] Encounters Start End Encounter Admission Attending Care Care Encounter Source Date/Time Date/Time Type Type Clinicians Facility Department ID 2022-08-20 2022-08-20 Outpatient SFA SFA [id number] 023 Jaden 13:43:24 13:43:24 0404 F Kris 2022-05-29 2022-05-29 Outpatient SFA SFA [id number] 023 Jaden 14:07:16 14:07:16 0111 F Kris 2022-04-30 2022-04-30 Outpatient SFA SFA [id number] 022 Jaden 15:19:29 15:19:29 1213 F Kris 2022-04-30 2022-04-30 Outpatient [id number] 00:00:00 00:00:00 Visit 42bf-47ea 2bf-47ea-a -c5nc-9z5 6ca-2d3b18 i42p7te11 a9ff62 2022-03-27 2022-03-27 Outpatient [facility] [place] [id number] [facility]oted 00:00:00 00:00:00 [id number] [facility] 2022-03-26 2022-03-26 Outpatient SFA SFA [id number] 022 Jaden 09:54:48 09:54:48 1108 F Kris 2022-03-26 2022-03-26 Outpatient [id number] 00:00:00 00:00:00 Visit 769f-402a 69f-402a-b -l174-9z2 [id number] 2022-02-25 2022-02-25 Outpatient SFA SFA [id number] 022 Jaden 11:04:30 11:04:30 1010 F Kris 2022-02-25 2022-02-25 Outpatient [id number] 00:00:00 00:00:00 Visit 5148-42f6 148-42f6-b -f11z-b95 47f-c5779z 01k8si3l7 2ba4e2 2021-11-30 2021-11-30 Outpatient [id number]- [id number]-m 00:00:00 00:00:00 Visit fef1-4fc2 ef1-4fc2-a -l12p-aj0 66d-ab55ff 0iqb63syi e05aeb 2021-11-27 2021-11-27 Outpatient RONNY WASHINGTON [address] 04:42:00 04:42:00 MANUEL 0712 da [facility] Outre[facility] h Program Results Test Description Test Time Test Comments Results Result Comments Source LIPID PANEL 2022-08-21 06:45:40 Test Item Value Reference Range Interpretation Comme nts CHOLESTEROL (test code = 2210) 219 MG/DL <200 H TRIGLYCERIDES (test code = 2232) 85 MG/DL <150 HDL CHOLESTEROL (test code = 78 MG/DL >39 2219) CALC LDL CHOL (test code = 2237) 123 MG/DL <100 H NOTE: CALCULATED LDL IS BASED ON ADRIAN-JESUS METHOD WHICHINCLUDES A DJUSTABLE TRIGLYCERIDE:VL DL CHOLESTEROL RATIO.THIS FACT OR VARIES BY MEASURED TRIGLY CERIDE AND NON-HDLCHOLESTE ROL CONCENTRATIONS WITH INCREASED CALCULATED LDL SEENIN HIGHER T RIGLYCERIDE OR LOWER NON-HDL S PECIMENS. FOR MOREINFORMATION , SEE CLIENT ANNOUNCEMENT AT [email or web address] RATIO LDL/HDL (test code = 1.58 RATIO <3.22 2237) COMPREHENSIVE METABOLIC [id number] 06:45:40 Test Item Value Reference Range Interpretation Comments GLUCOSE (test code = 185 MG/DL 70-99 H 2216) BUN (test code = 10 MG/DL 8-23 2207) CREATININE (test 0.55 MG/DL 0.60-1.30 L code = 2214) eGFR (2020 CKD-EPI) 101 >60 (test code = 39959) ML/MIN/1.73 CALC BUN/CREAT (test 18 RATIO 6-28 code = 2235) SODIUM (test code = 134 MEQ/L 245-988 2747) POTASSIUM (test code 3.5 MEQ/L 3.5-5.4 = 2227) CHLORIDE (test code 94 MEQ/L 95-107 L = 2214) CARBON DIOXIDE (test 23 MEQ/L 19-31 code = 2206) CALCIUM (test code = 10.0 MG/DL 8.5-10.5 2208) PROTEIN, TOTAL (test 7.2 G/DL 6.1-8.3 code = 2229) ALBUMIN (test code = 4.8 G/DL 3.5-5.2 2200) CALC GLOBULIN (test 2.4 G/DL 1.9-3.7 code = 2240) CALC A/G RATIO (test 2.0 RATIO 1.0-2.6 code = 2234) BILIRUBIN, TOTAL 0.2 MG/DL See_Comment [Automated message] (test code = 2206) The [employer] which generated this result transmitted ref erence range: <=1.2. T he reference range was not used to int erpret this result as normal/abnormal . ALKALINE PHOSPHATASE 101 U/L 40-142 (test code = 2203) AST (test code = 15 U/L 9-40 2217) ALT (test code = 17 U/L 5-40 [facility] horn s 2218) important patho logy staff changes effective 07/17. New patholo gy staff will prov maggy uninterrupted, excellent patie nt care and clinic al consultation. S ee URL: [email or web address]. UNLE SS OTHERWISE INDIC ATED, ALL TESTING PER [facility] AT [facility] [place] [address] MANDY JAYNE DIRECTOR: Federico DAVE BERTRAND NUMBER [id number] CAP ACCREDITATION N O. [id number] HEMOGLOBIN [id number] 03:45:25 Test Item Value Reference Range Interpretation Comments HEMOGLOBIN A1c (test 6.1 % 4.2-5.6 H AMERIC AN DIABETES code = 61731) ASSOCIATION IDELINES FOR HGB A1C: PREDIABETES/INC REASED RISK . . . . . . . 5.7 -6.4% DIAGNOSIS OF DI ABETES . . . . . . . . . >=6 .5% WITH CONFIRMATION OR APPROPRIATE SYMPTOMS NOTE: ASSAY MAY BE AFFECTED BY HEMOGLOBINOPATH IES (SICKLE CELL ANEMIA, S- C DISEASE, OTHERS) OR DORIAN FICIALLY LOWERED BY DECR EASED RED CELL SURVIVAL ( HEMOLYTIC ANEMIAS, BLOOD LOSS, ETC.). CONSIDER ALTERN ATE TESTING OR LABORATORY C ONSULTATION. CBC W/AUTO DIFF WITH [id number] 02:39:50 Test Item Value Reference Range Interpretation Comments WBC (test code = 9.6 K/UL 3.5-11.0 1001) RBC (test code = 4.83 M/UL 3.80-5.40 1002) HEMOGLOBIN (test code 15.4 G/DL 11.5-15.5 = 1003) HEMATOCRIT (test code 43.8 % 34.0-45.0 = 1004) MCV (test code = 90.7 fL 80.0-99.0 1005) MCH (test code = 31.9 PG 25.0-33.0 1006) MCHC (test code = 35.2 G/DL 31.0-36.0 1007) RDW (test code = 13.2 % 11.5-15.0 1038) NEUTROPHILS (test 81.8 % code = 1008) LYMPHOCYTES (test 13.9 % code = 1010) MONOCYTES (test code 1.8 % = 1011) EOSINOPHILS (test 0.0 % code = 1012) BASOPHILS (test code 0.9 % = 1013) IMMATURE GRANULOCYTES 1.6 % (test code = 1036) NUCLEATED RBCS (test 0.0 /100 WBC'S See_Comment [Aut omated code = 1065) message] The sy stem which generated this result transmitted reference range : 0.0. The refere nce range was not u sed to interpret th is result as normal/abnormal . PLATELET COUNT (test 302 K/UL 130-400 code = 1015) ABSOLUTE NEUTROPHILS 7.85 K/UL 1.50-7.50 H (test code = 1066) ABSOLUTE LYMPHOCYTES 1.33 K/UL 1.00-4.00 (test code = 1067) ABSOLUTE MONOCYTES 0.17 K/UL 0.20-1.00 L (test code = 1068) ABSOLUTE EOSINOPHILS 0.00 K/UL 0.00-0.50 (test code = 1040) ABSOLUTE BASOPHILS 0.09 K/UL 0.00-0.20 (test code = 1069) ABS IMMATURE 0.15 K/UL 0.00-0.10 H GRANULOCYTES (test code = 1020) ABS NUCLEATED RBCS 0.00 K/UL 0.00-0.11 (test code = 91226) OCCULT BLD,FECAL,IMMUNOASSAY [id number] 15:52:05 Test Item Value Reference Range Interpretation Comments OCCULT BLD, FECAL NEGATIVE NEGATIVE CPL h as important (test code = 38210) patholog y staff changes effective 07/17. New patholo gy staff will provide uninterrupted, excellent patient care an d clinical consul tation. See URL: [email or web address]. UNLESS OTHERWISE INDICATED, ALL TESTING PERFORMED AT [facility] PATHOLOGY [facility], [facility]. [address], [place] CLIA : [id number], CAP : TSH, THIRD [id number] 06:49:25 Test Item Value Reference Range Interpretation Comments TSH, THIRD GENERATION (test code 1.600 UIU/ML 0.400-4.100 = 2821) [id number] 06:45:12 Test Item Value Reference Range Interpretation Comments NT-proBNP <50 PG/ML SEE BELOW If NT-ProBNP i s less than 300 (test code = PG/ML, heart fa ilure is unlikely 13202) for allages. Age............ .....Heart Failure Likely <50 Years.......... .>=450 PG/ML 50-75 Years.... .....>=900 PG/ML > 75 Years..... .....>=1800 PG/ML Methodology: Ro chikis Kimani Electrochemilum inescense Immunoassay UNL ESS OTHERWISE INDICATED, ALL TESTING PERFORMED [facility] PATH [facility], [facility]. [address], [place] [address] CARE COMPANION: ELIAS ESPANA M.D. [place] DON Jesus [id number] CAP ACCREDITATION N O. [id number] COMPREHENSIVE METABOLIC [id number] 04:56:47 Test Item Value Reference Range Interpretation Comments GLUCOSE (test code = 137 MG/DL 70-99 H 2216) BUN (test code = 12 MG/DL -2207) CREATININE (test 0.60 MG/DL 0.60-1.30 code = 2214) eGFR (2020 CKD-EPI) 99 ML/MIN/1.73 >60 (test code = 79579) CALC BUN/CREAT (test 20 RATIO 6-28 code = 2235) SODIUM (test code = 143 MEQ/L 528-676 1483) POTASSIUM (test code 4.3 MEQ/L 3.5-5.4 = 2228) CHLORIDE (test code 105 MEQ/L 95-107 = 2215) CARBON DIOXIDE (test 25 MEQ/L 19-31 code = 2206) CALCIUM (test code = 9.6 MG/DL 8.5-10.5 2208) PROTEIN, TOTAL (test 6.8 G/DL 6.1-8.3 code = 2229) ALBUMIN (test code = 4.5 G/DL 3.5-5.2 2200) CALC GLOBULIN (test 2.3 G/DL 1.9-3.7 code = 2240) CALC A/G RATIO (test 2.0 RATIO 1.0-2.6 code = 2234) BILIRUBIN, TOTAL 0.2 MG/DL See_Comment [Automated message] (test code = 220) The syste m which generated this result transmit siomara reference range : <=1.2. The refe rence range was not u sed to interpret th is result as normal/abnormal . ALKALINE PHOSPHATASE 128 U/L 40-142 (test code = 2204) AST (test code = 15 U/L 9-40 2217) ALT (test code = 11 U/L 5-40 2218) LIPID [id number] 04:56:47 Test Item Value Reference Range Interpretation Comments CHOLESTEROL (test 236 MG/DL <200 H code = 2210) TRIGLYCERIDES (test 274 MG/DL <150 H code = 2232) HDL CHOLESTEROL (test 54 MG/DL >39 code = 2220) CALC LDL CHOL (test 140 MG/DL <100 H NOTE: C ALCULATED LDL code = 2237) IS BASED ON ADRIAN-JESUS METHOD WHICHINCLUDES ADJUSTABLE TRIGLYCERIDE:VL DL CHOLESTEROL RAT IO.THIS FACTOR VARIES B Y MEASURED TRIGLY CERIDE AND NON-HDLCHOL ESTEROL CONCENTRATIONS WITH INCREASED CALCU LATED LDL SEENIN HIGH ER TRIGLYCERIDE OR LOWER NON-HDL SPECIME NS. FOR MOREINFORMATION , SEE CLIENT ANNOUNCE MENT AT [email or web address] RATIO LDL/HDL 2.59 RATIO <3.22 (test code = 2238) HEMOGLOBIN [id number] 04:00:46 Test Item Value Reference Range Interpretation Comments HEMOGLOBIN A1c (test code = 65075) 5.9 % 4.2-5.6 H CBC W/AUTO DIFF WITH [id number] 02:37:32 Test Item Value Reference Range Interpretation Comments WBC (test code = 5.9 K/UL 3.5-11.0 1001) RBC (test code = 5.06 M/UL 3.80-5.40 1002) HEMOGLOBIN (test code 15.6 G/DL 11.5-15.5 H = 1003) HEMATOCRIT (test code 46.7 % 34.0-45.0 H = 1004) MCV (test code = 92.3 fL 80.0-99.0 1005) MCH (test code = 30.8 PG 25.0-33.0 1006) MCHC (test code = 33.4 G/DL 31.0-36.0 1007) RDW (test code = 13.5 % 11.5-15.0 1038) NEUTROPHILS (test 63.0 % code = 1008) LYMPHOCYTES (test 27.6 % code = 1010) MONOCYTES (test code 5.4 % = 1011) EOSINOPHILS (test 2.0 % code = 1012) BASOPHILS (test code 1.2 % = 1013) IMMATURE GRANULOCYTES 0.8 % (test code = 1036) NUCLEATED RBCS (test 0.0 /100 WBC'S See_Comment [Aut omated code = 1065) message] The sy stem which generated this result transmitted reference range : 0.0. The refere nce range was not u sed to interpret th is result as normal/abnormal . PLATELET COUNT (test 198 K/UL 130-400 code = 1015) ABSOLUTE NEUTROPHILS 3.74 K/UL 1.50-7.50 (test code = 1066) ABSOLUTE LYMPHOCYTES 1.64 K/UL 1.00-4.00 (test code = 1067) ABSOLUTE MONOCYTES 0.32 K/UL 0.20-1.00 (test code = 1068) ABSOLUTE EOSINOPHILS 0.12 K/UL 0.00-0.50 (test code = 1040) ABSOLUTE BASOPHILS 0.07 K/UL 0.00-0.20 (test code = 1069) ABS IMMATURE 0.05 K/UL 0.00-0.10 GRANULOCYTES (test code = 1020) ABS NUCLEATED RBCS 0.00 K/UL 0.00-0.11 (test code = 58479) HEMOGLOBIN [id number] 00:00:00 Test Item Value Reference Range Interpretation Comments HEMOGLOBIN A1c (test code = 21191) 5.9 % HEMOGLOBIN [id number] 00:00:00 Test Item Value Reference Range Interpretation Comments HEMOGLOBIN A1c (test code = 62681) 5.9 % HEMOGLOBIN [id number] 00:00:00 Test Item Value Reference Range Interpretation Comments HEMOGLOBIN A1c (test code = 92730) 5.9 % CBC W/AUTO [id number] 00:00:00 Test Item Value Reference Range Interpretation Comments WBC (test code = 1001) 5.9 K/UL RBC (test code = 1002) 5.06 M/UL HEMOGLOBIN (test code = 1003) 15.6 G/DL HEMATOCRIT (test code = 1004) 46.7 % MCV (test code = 1005) 92.3 fL MCH (test code = 1006) 30.8 PG MCHC (test code = 1007) 33.4 G/DL RDW (test code = 1038) 13.5 % NEUTROPHILS (test code = 1008) 63.0 % LYMPHOCYTES (test code = 1010) 27.6 % MONOCYTES (test code = 1011) 5.4 % EOSINOPHILS (test code = 1012) 2.0 % BASOPHILS (test code = 1013) 1.2 % IMMATURE GRANULOCYTES (test 0.8 % code = 1036) NUCLEATED RBCS (test code = 0.0 /100WBC'S 1065) PLATELET COUNT (test code = 198 K/UL 1015) ABSOLUTE NEUTROPHILS (test code 3.74 K/UL = 1066) ABSOLUTE LYMPHOCYTES (test code 1.64 K/UL = 1067) ABSOLUTE MONOCYTES (test code = 0.32 K/UL 1068) ABSOLUTE EOSINOPHILS (test code 0.12 K/UL = 1040) ABSOLUTE BASOPHILS (test code = 0.07 K/UL 1069) ABS IMMATURE GRANULOCYTES (test 0.05 K/UL code = 1020) ABS NUCLEATED RBCS (test code = 0.00 K/UL 02957) CBC W/AUTO [id number] 00:00:00 Test Item Value Reference Range Interpretation Comments WBC (test code = 1001) 5.9 K/UL RBC (test code = 1002) 5.06 M/UL HEMOGLOBIN (test code = 1003) 15.6 G/DL HEMATOCRIT (test code = 1004) 46.7 % MCV (test code = 1005) 92.3 fL MCH (test code = 1006) 30.8 PG MCHC (test code = 1007) 33.4 G/DL RDW (test code = 1038) 13.5 % NEUTROPHILS (test code = 1008) 63.0 % LYMPHOCYTES (test code = 1010) 27.6 % MONOCYTES (test code = 1011) 5.4 % EOSINOPHILS (test code = 1012) 2.0 % BASOPHILS (test code = 1013) 1.2 % IMMATURE GRANULOCYTES (test 0.8 % code = 1036) NUCLEATED RBCS (test code = 0.0 /100WBC'S 1065) PLATELET COUNT (test code = 198 K/UL 1015) ABSOLUTE NEUTROPHILS (test code 3.74 K/UL = 1066) ABSOLUTE LYMPHOCYTES (test code 1.64 K/UL = 1067) ABSOLUTE MONOCYTES (test code = 0.32 K/UL 1068) ABSOLUTE EOSINOPHILS (test code 0.12 K/UL = 1040) ABSOLUTE BASOPHILS (test code = 0.07 K/UL 1069) ABS IMMATURE GRANULOCYTES (test 0.05 K/UL code = 1020) ABS NUCLEATED RBCS (test code = 0.00 K/UL 16828) CBC W/AUTO [id number] 00:00:00 Test Item Value Reference Range Interpretation Comments WBC (test code = 1001) 5.9 K/UL RBC (test code = 1002) 5.06 M/UL HEMOGLOBIN (test code = 1003) 15.6 G/DL HEMATOCRIT (test code = 1004) 46.7 % MCV (test code = 1005) 92.3 fL MCH (test code = 1006) 30.8 PG MCHC (test code = 1007) 33.4 G/DL RDW (test code = 1038) 13.5 % NEUTROPHILS (test code = 1008) 63.0 % LYMPHOCYTES (test code = 1010) 27.6 % MONOCYTES (test code = 1011) 5.4 % EOSINOPHILS (test code = 1012) 2.0 % BASOPHILS (test code = 1013) 1.2 % IMMATURE GRANULOCYTES (test 0.8 % code = 1036) NUCLEATED RBCS (test code = 0.0 /100WBC'S 1065) PLATELET COUNT (test code = 198 K/UL 1015) ABSOLUTE NEUTROPHILS (test code 3.74 K/UL = 1066) ABSOLUTE LYMPHOCYTES (test code 1.64 K/UL = 1067) ABSOLUTE MONOCYTES (test code = 0.32 K/UL 1068) ABSOLUTE EOSINOPHILS (test code 0.12 K/UL = 1040) ABSOLUTE BASOPHILS (test code = 0.07 K/UL 1069) ABS IMMATURE GRANULOCYTES (test 0.05 K/UL code = 1020) ABS NUCLEATED RBCS (test code = 0.00 K/UL 63035) COMPREHENSIVE METABOLIC [id number] 00:00:00 Test Item Value Reference Range Interpretation Comments GLUCOSE (test code = 2217) 137 MG/DL BUN (test code = 2208) 12 MG/DL CREATININE (test code = 2214) 0.60 MG/DL eGFR (2020 CKD-EPI) (test code 99 ML/MIN/1.73 = 15197) CALC BUN/CREAT (test code = 20 RATIO 2235) SODIUM (test code = 2231) 143 MEQ/L POTASSIUM (test code = 2228) 4.3 MEQ/L CHLORIDE (test code = 2215) 105 MEQ/L CARBON DIOXIDE (test code = 25 MEQ/L 220) CALCIUM (test code = 2209) 9.6 MG/DL PROTEIN, TOTAL (test code = 6.8 G/DL 2228) ALBUMIN (test code = 2201) 4.5 G/DL CALC GLOBULIN (test code = 2.3 G/DL 2240) CALC A/G RATIO (test code = 2.0 RATIO 2234) BILIRUBIN, TOTAL (test code = 0.2 MG/DL 2206) ALKALINE PHOSPHATASE (test 128 U/L code = 2204) AST (test code = 2218) 15 U/L ALT (test code = 2219) 11 U/L COMPREHENSIVE METABOLIC [id number] 00:00:00 Test Item Value Reference Range Interpretation Comments GLUCOSE (test code = 2217) 137 MG/DL BUN (test code = 2208) 12 MG/DL CREATININE (test code = 2214) 0.60 MG/DL eGFR (2020 CKD-EPI) (test code 99 ML/MIN/1.73 = 88220) CALC BUN/CREAT (test code = 20 RATIO 2235) SODIUM (test code = 2231) 143 MEQ/L POTASSIUM (test code = 2228) 4.3 MEQ/L CHLORIDE (test code = 2215) 105 MEQ/L CARBON DIOXIDE (test code = 25 MEQ/L 2205) CALCIUM (test code = 2209) 9.6 MG/DL PROTEIN, TOTAL (test code = 6.8 G/DL 2228) ALBUMIN (test code = 2201) 4.5 G/DL CALC GLOBULIN (test code = 2.3 G/DL 2239) CALC A/G RATIO (test code = 2.0 RATIO 2234) BILIRUBIN, TOTAL (test code = 0.2 MG/DL 2206) ALKALINE PHOSPHATASE (test 128 U/L code = 2204) AST (test code = 2218) 15 U/L ALT (test code = 2219) 11 U/L LIPID [id number] 00:00:00 Test Item Value Reference Range Interpretation Comments CHOLESTEROL (test code = 2210) 236 MG/DL TRIGLYCERIDES (test code = 2232) 274 MG/DL HDL CHOLESTEROL (test code = 2220) 54 MG/DL CALC LDL CHOL (test code = 2237) 140 MG/DL RISK RATIO LDL/HDL (test code = 2.59 RATIO 2238) LIPID [id number] 00:00:00 Test Item Value Reference Range Interpretation Comments CHOLESTEROL (test code = 2210) 236 MG/DL TRIGLYCERIDES (test code = 2232) 274 MG/DL HDL CHOLESTEROL (test code = 2220) 54 MG/DL CALC LDL CHOL (test code = 2237) 140 MG/DL RISK RATIO LDL/HDL (test code = 2.59 RATIO 2238) TSH, THIRD [id number] 00:00:00 Test Item Value Reference Range Interpretation Comments TSH, THIRD GENERATION (test code 1.600 UIU/ML = 2821) TSH, THIRD [id number] 00:00:00 Test Item Value Reference Range Interpretation Comments TSH, THIRD GENERATION (test code 1.600 UIU/ML = 2821) TSH, THIRD [id number] 00:00:00 Test Item Value Reference Range Interpretation Comments TSH, THIRD GENERATION (test code 1.600 UIU/ML = 2821) [id number] 00:00:00 Test Item Value Reference Range Interpretation Comments NT-proBNP (test code = 22001) <50 PG/ML [id number] 00:00:00 Test Item Value Reference Range Interpretation Comments NT-proBNP (test code = 95302) <50 PG/ML [id number] 00:00:00 Test Item Value Reference Range Interpretation Comments NT-proBNP (test code = 57222) <50 PG/ML HEMOGLOBIN [id number] 00:00:00 Test Item Value Reference Range Interpretation Comments HEMOGLOBIN A1c (test code = 65685) 5.9 % HEMOGLOBIN [id number] 00:00:00 Test Item Value Reference Range Interpretation Comments HEMOGLOBIN A1c (test code = 87314) 5.9 % HEMOGLOBIN [id number] 00:00:00 Test Item Value Reference Range Interpretation Comments HEMOGLOBIN A1c (test code = 46851) 5.9 % CBC W/AUTO [id number] 00:00:00 Test Item Value Reference Range Interpretation Comments WBC (test code = 1001) 5.9 K/UL RBC (test code = 1002) 5.06 M/UL HEMOGLOBIN (test code = 1003) 15.6 G/DL HEMATOCRIT (test code = 1004) 46.7 % MCV (test code = 1005) 92.3 fL MCH (test code = 1006) 30.8 PG MCHC (test code = 1007) 33.4 G/DL RDW (test code = 1038) 13.5 % NEUTROPHILS (test code = 1008) 63.0 % LYMPHOCYTES (test code = 1010) 27.6 % MONOCYTES (test code = 1011) 5.4 % EOSINOPHILS (test code = 1012) 2.0 % BASOPHILS (test code = 1013) 1.2 % IMMATURE GRANULOCYTES (test 0.8 % code = 1036) NUCLEATED RBCS (test code = 0.0 /100WBC'S 1065) PLATELET COUNT (test code = 198 K/UL 1015) ABSOLUTE NEUTROPHILS (test code 3.74 K/UL = 1066) ABSOLUTE LYMPHOCYTES (test code 1.64 K/UL = 1067) ABSOLUTE MONOCYTES (test code = 0.32 K/UL 1068) ABSOLUTE EOSINOPHILS (test code 0.12 K/UL = 1040) ABSOLUTE BASOPHILS (test code = 0.07 K/UL 1069) ABS IMMATURE GRANULOCYTES (test 0.05 K/UL code = 1020) ABS NUCLEATED RBCS (test code = 0.00 K/UL 53238) CBC W/AUTO [id number] 00:00:00 Test Item Value Reference Range Interpretation Comments WBC (test code = 1001) 5.9 K/UL RBC (test code = 1002) 5.06 M/UL HEMOGLOBIN (test code = 1003) 15.6 G/DL HEMATOCRIT (test code = 1004) 46.7 % MCV (test code = 1005) 92.3 fL MCH (test code = 1006) 30.8 PG MCHC (test code = 1007) 33.4 G/DL RDW (test code = 1038) 13.5 % NEUTROPHILS (test code = 1008) 63.0 % LYMPHOCYTES (test code = 1010) 27.6 % MONOCYTES (test code = 1011) 5.4 % EOSINOPHILS (test code = 1012) 2.0 % BASOPHILS (test code = 1013) 1.2 % IMMATURE GRANULOCYTES (test 0.8 % code = 1036) NUCLEATED RBCS (test code = 0.0 /100WBC'S 1065) PLATELET COUNT (test code = 198 K/UL 1015) ABSOLUTE NEUTROPHILS (test code 3.74 K/UL = 1066) ABSOLUTE LYMPHOCYTES (test code 1.64 K/UL = 1067) ABSOLUTE MONOCYTES (test code = 0.32 K/UL 1068) ABSOLUTE EOSINOPHILS (test code 0.12 K/UL = 1040) ABSOLUTE BASOPHILS (test code = 0.07 K/UL 1069) ABS IMMATURE GRANULOCYTES (test 0.05 K/UL code = 1020) ABS NUCLEATED RBCS (test code = 0.00 K/UL 62424) CBC W/AUTO [id number] 00:00:00 Test Item Value Reference Range Interpretation Comments WBC (test code = 1001) 5.9 K/UL RBC (test code = 1002) 5.06 M/UL HEMOGLOBIN (test code = 1003) 15.6 G/DL HEMATOCRIT (test code = 1004) 46.7 % MCV (test code = 1005) 92.3 fL MCH (test code = 1006) 30.8 PG MCHC (test code = 1007) 33.4 G/DL RDW (test code = 1038) 13.5 % NEUTROPHILS (test code = 1008) 63.0 % LYMPHOCYTES (test code = 1010) 27.6 % MONOCYTES (test code = 1011) 5.4 % EOSINOPHILS (test code = 1012) 2.0 % BASOPHILS (test code = 1013) 1.2 % IMMATURE GRANULOCYTES (test 0.8 % code = 1036) NUCLEATED RBCS (test code = 0.0 /100WBC'S 1065) PLATELET COUNT (test code = 198 K/UL 1015) ABSOLUTE NEUTROPHILS (test code 3.74 K/UL = 1066) ABSOLUTE LYMPHOCYTES (test code 1.64 K/UL = 1067) ABSOLUTE MONOCYTES (test code = 0.32 K/UL 1068) ABSOLUTE EOSINOPHILS (test code 0.12 K/UL = 1040) ABSOLUTE BASOPHILS (test code = 0.07 K/UL 1069) ABS IMMATURE GRANULOCYTES (test 0.05 K/UL code = 1020) ABS NUCLEATED RBCS (test code = 0.00 K/UL 82916) COMPREHENSIVE METABOLIC [id number] 00:00:00 Test Item Value Reference Range Interpretation Comments GLUCOSE (test code = 2217) 137 MG/DL BUN (test code = 2208) 12 MG/DL CREATININE (test code = 2214) 0.60 MG/DL eGFR (2020 CKD-EPI) (test code 99 ML/MIN/1.73 = 96840) CALC BUN/CREAT (test code = 20 RATIO 2235) SODIUM (test code = 2231) 143 MEQ/L POTASSIUM (test code = 2228) 4.3 MEQ/L CHLORIDE (test code = 2215) 105 MEQ/L CARBON DIOXIDE (test code = 25 MEQ/L 220) CALCIUM (test code = 2209) 9.6 MG/DL PROTEIN, TOTAL (test code = 6.8 G/DL 2228) ALBUMIN (test code = 2201) 4.5 G/DL CALC GLOBULIN (test code = 2.3 G/DL 2240) CALC A/G RATIO (test code = 2.0 RATIO 2234) BILIRUBIN, TOTAL (test code = 0.2 MG/DL 2206) ALKALINE PHOSPHATASE (test 128 U/L code = 2204) AST (test code = 2218) 15 U/L ALT (test code = 2219) 11 U/L COMPREHENSIVE METABOLIC [id number] 00:00:00 Test Item Value Reference Range Interpretation Comments GLUCOSE (test code = 2217) 137 MG/DL BUN (test code = 2208) 12 MG/DL CREATININE (test code = 2214) 0.60 MG/DL eGFR (2020 CKD-EPI) (test code 99 ML/MIN/1.73 = 31958) CALC BUN/CREAT (test code = 20 RATIO 2235) SODIUM (test code = 2231) 143 MEQ/L POTASSIUM (test code = 2228) 4.3 MEQ/L CHLORIDE (test code = 2215) 105 MEQ/L CARBON DIOXIDE (test code = 25 MEQ/L 2205) CALCIUM (test code = 2209) 9.6 MG/DL PROTEIN, TOTAL (test code = 6.8 G/DL 2228) ALBUMIN (test code = 220) 4.5 G/DL CALC GLOBULIN (test code = 2.3 G/DL 2239) CALC A/G RATIO (test code = 2.0 RATIO 2233) BILIRUBIN, TOTAL (test code = 0.2 MG/DL 2206) ALKALINE PHOSPHATASE (test 128 U/L code = 2204) AST (test code = 2218) 15 U/L ALT (test code = 2219) 11 U/L LIPID [id number] 00:00:00 Test Item Value Reference Range Interpretation Comments CHOLESTEROL (test code = 2210) 236 MG/DL TRIGLYCERIDES (test code = 2232) 274 MG/DL HDL CHOLESTEROL (test code = 2220) 54 MG/DL CALC LDL CHOL (test code = 2237) 140 MG/DL RISK RATIO LDL/HDL (test code = 2.59 RATIO 2238) LIPID [id number] 00:00:00 Test Item Value Reference Range Interpretation Comments CHOLESTEROL (test code = 2210) 236 MG/DL TRIGLYCERIDES (test code = 2232) 274 MG/DL HDL CHOLESTEROL (test code = 2220) 54 MG/DL CALC LDL CHOL (test code = 2237) 140 MG/DL RISK RATIO LDL/HDL (test code = 2.59 RATIO 2238) TSH, THIRD [id number] 00:00:00 Test Item Value Reference Range Interpretation Comments TSH, THIRD GENERATION (test code 1.600 UIU/ML = 2821) TSH, THIRD [id number] 00:00:00 Test Item Value Reference Range Interpretation Comments TSH, THIRD GENERATION (test code 1.600 UIU/ML = 2821) TSH, THIRD [id number] 00:00:00 Test Item Value Reference Range Interpretation Comments TSH, THIRD GENERATION (test code 1.600 UIU/ML = 2821) [id number] 00:00:00 Test Item Value Reference Range Interpretation Comments NT-proBNP (test code = 52708) <50 PG/ML [id number] 00:00:00 Test Item Value Reference Range Interpretation Comments NT-proBNP (test code = 64088) <50 PG/ML [id number] 00:00:00 Test Item Value Reference Range Interpretation Comments NT-proBNP (test code = 07720) <50 PG/ML HEMOGLOBIN [id number] 00:00:00 Test Item Value Reference Range Interpretation Comments HEMOGLOBIN A1c (test code = 86939) 5.9 % HEMOGLOBIN [id number] 00:00:00 Test Item Value Reference Range Interpretation Comments HEMOGLOBIN A1c (test code = 78837) 5.9 % HEMOGLOBIN [id number] 00:00:00 Test Item Value Reference Range Interpretation Comments HEMOGLOBIN A1c (test code = 99786) 5.9 % CBC W/AUTO [id number] 00:00:00 Test Item Value Reference Range Interpretation Comments WBC (test code = 1001) 5.9 K/UL RBC (test code = 1002) 5.06 M/UL HEMOGLOBIN (test code = 1003) 15.6 G/DL HEMATOCRIT (test code = 1004) 46.7 % MCV (test code = 1005) 92.3 fL MCH (test code = 1006) 30.8 PG MCHC (test code = 1007) 33.4 G/DL RDW (test code = 1038) 13.5 % NEUTROPHILS (test code = 1008) 63.0 % LYMPHOCYTES (test code = 1010) 27.6 % MONOCYTES (test code = 1011) 5.4 % EOSINOPHILS (test code = 1012) 2.0 % BASOPHILS (test code = 1013) 1.2 % IMMATURE GRANULOCYTES (test 0.8 % code = 1036) NUCLEATED RBCS (test code = 0.0 /100WBC'S 1065) PLATELET COUNT (test code = 198 K/UL 1015) ABSOLUTE NEUTROPHILS (test code 3.74 K/UL = 1066) ABSOLUTE LYMPHOCYTES (test code 1.64 K/UL = 1067) ABSOLUTE MONOCYTES (test code = 0.32 K/UL 1068) ABSOLUTE EOSINOPHILS (test code 0.12 K/UL = 1040) ABSOLUTE BASOPHILS (test code = 0.07 K/UL 1069) ABS IMMATURE GRANULOCYTES (test 0.05 K/UL code = 1020) ABS NUCLEATED RBCS (test code = 0.00 K/UL 15284) CBC W/AUTO [id number] 00:00:00 Test Item Value Reference Range Interpretation Comments WBC (test code = 1001) 5.9 K/UL RBC (test code = 1002) 5.06 M/UL HEMOGLOBIN (test code = 1003) 15.6 G/DL HEMATOCRIT (test code = 1004) 46.7 % MCV (test code = 1005) 92.3 fL MCH (test code = 1006) 30.8 PG MCHC (test code = 1007) 33.4 G/DL RDW (test code = 1038) 13.5 % NEUTROPHILS (test code = 1008) 63.0 % LYMPHOCYTES (test code = 1010) 27.6 % MONOCYTES (test code = 1011) 5.4 % EOSINOPHILS (test code = 1012) 2.0 % BASOPHILS (test code = 1013) 1.2 % IMMATURE GRANULOCYTES (test 0.8 % code = 1036) NUCLEATED RBCS (test code = 0.0 /100WBC'S 1065) PLATELET COUNT (test code = 198 K/UL 1015) ABSOLUTE NEUTROPHILS (test code 3.74 K/UL = 1066) ABSOLUTE LYMPHOCYTES (test code 1.64 K/UL = 1067) ABSOLUTE MONOCYTES (test code = 0.32 K/UL 1068) ABSOLUTE EOSINOPHILS (test code 0.12 K/UL = 1040) ABSOLUTE BASOPHILS (test code = 0.07 K/UL 1069) ABS IMMATURE GRANULOCYTES (test 0.05 K/UL code = 1020) ABS NUCLEATED RBCS (test code = 0.00 K/UL 63437) CBC W/AUTO [id number] 00:00:00 Test Item Value Reference Range Interpretation Comments WBC (test code = 1001) 5.9 K/UL RBC (test code = 1002) 5.06 M/UL HEMOGLOBIN (test code = 1003) 15.6 G/DL HEMATOCRIT (test code = 1004) 46.7 % MCV (test code = 1005) 92.3 fL MCH (test code = 1006) 30.8 PG MCHC (test code = 1007) 33.4 G/DL RDW (test code = 1038) 13.5 % NEUTROPHILS (test code = 1008) 63.0 % LYMPHOCYTES (test code = 1010) 27.6 % MONOCYTES (test code = 1011) 5.4 % EOSINOPHILS (test code = 1012) 2.0 % BASOPHILS (test code = 1013) 1.2 % IMMATURE GRANULOCYTES (test 0.8 % code = 1036) NUCLEATED RBCS (test code = 0.0 /100WBC'S 1065) PLATELET COUNT (test code = 198 K/UL 1015) ABSOLUTE NEUTROPHILS (test code 3.74 K/UL = 1066) ABSOLUTE LYMPHOCYTES (test code 1.64 K/UL = 1067) ABSOLUTE MONOCYTES (test code = 0.32 K/UL 1068) ABSOLUTE EOSINOPHILS (test code 0.12 K/UL = 1040) ABSOLUTE BASOPHILS (test code = 0.07 K/UL 1069) ABS IMMATURE GRANULOCYTES (test 0.05 K/UL code = 1020) ABS NUCLEATED RBCS (test code = 0.00 K/UL 36510) COMPREHENSIVE METABOLIC [id number] 00:00:00 Test Item Value Reference Range Interpretation Comments GLUCOSE (test code = 2217) 137 MG/DL BUN (test code = 2208) 12 MG/DL CREATININE (test code = 2214) 0.60 MG/DL eGFR (2020 CKD-EPI) (test code 99 ML/MIN/1.73 = 26883) CALC BUN/CREAT (test code = 20 RATIO 2235) SODIUM (test code = 2231) 143 MEQ/L POTASSIUM (test code = 2228) 4.3 MEQ/L CHLORIDE (test code = 2215) 105 MEQ/L CARBON DIOXIDE (test code = 25 MEQ/L 2205) CALCIUM (test code = 2209) 9.6 MG/DL PROTEIN, TOTAL (test code = 6.8 G/DL 2228) ALBUMIN (test code = 2201) 4.5 G/DL CALC GLOBULIN (test code = 2.3 G/DL 2239) CALC A/G RATIO (test code = 2.0 RATIO 2234) BILIRUBIN, TOTAL (test code = 0.2 MG/DL 2206) ALKALINE PHOSPHATASE (test 128 U/L code = 2204) AST (test code = 2218) 15 U/L ALT (test code = 2219) 11 U/L COMPREHENSIVE METABOLIC [id number] 00:00:00 Test Item Value Reference Range Interpretation Comments GLUCOSE (test code = 2217) 137 MG/DL BUN (test code = 2208) 12 MG/DL CREATININE (test code = 2214) 0.60 MG/DL eGFR (2020 CKD-EPI) (test code 99 ML/MIN/1.73 = 16969) CALC BUN/CREAT (test code = 20 RATIO 2235) SODIUM (test code = 2231) 143 MEQ/L POTASSIUM (test code = 2228) 4.3 MEQ/L CHLORIDE (test code = 2215) 105 MEQ/L CARBON DIOXIDE (test code = 25 MEQ/L 2205) CALCIUM (test code = 2209) 9.6 MG/DL PROTEIN, TOTAL (test code = 6.8 G/DL 2228) ALBUMIN (test code = 2201) 4.5 G/DL CALC GLOBULIN (test code = 2.3 G/DL 2239) CALC A/G RATIO (test code = 2.0 RATIO 2234) BILIRUBIN, TOTAL (test code = 0.2 MG/DL 2206) ALKALINE PHOSPHATASE (test 128 U/L code = 2204) AST (test code = 2218) 15 U/L ALT (test code = 2219) 11 U/L LIPID [id number] 00:00:00 Test Item Value Reference Range Interpretation Comments CHOLESTEROL (test code = 2210) 236 MG/DL TRIGLYCERIDES (test code = 2232) 274 MG/DL HDL CHOLESTEROL (test code = 2220) 54 MG/DL CALC LDL CHOL (test code = 2237) 140 MG/DL RISK RATIO LDL/HDL (test code = 2.59 RATIO 2238) LIPID [id number] 00:00:00 Test Item Value Reference Range Interpretation Comments CHOLESTEROL (test code = 2210) 236 MG/DL TRIGLYCERIDES (test code = 2232) 274 MG/DL HDL CHOLESTEROL (test code = 2220) 54 MG/DL CALC LDL CHOL (test code = 2237) 140 MG/DL RISK RATIO LDL/HDL (test code = 2.59 RATIO 2238) TSH, THIRD [id number] 00:00:00 Test Item Value Reference Range Interpretation Comments TSH, THIRD GENERATION (test code 1.600 UIU/ML = 2821) TSH, THIRD [id number] 00:00:00 Test Item Value Reference Range Interpretation Comments TSH, THIRD GENERATION (test code 1.600 UIU/ML = 2821) TSH, THIRD [id number] 00:00:00 Test Item Value Reference Range Interpretation Comments TSH, THIRD GENERATION (test code 1.600 UIU/ML = 2821) [id number] 00:00:00 Test Item Value Reference Range Interpretation Comments NT-proBNP (test code = 21322) <50 PG/ML [id number] 00:00:00 Test Item Value Reference Range Interpretation Comments NT-proBNP (test code = 39973) <50 PG/ML [id number] 00:00:00 Test Item Value Reference Range Interpretation Comments NT-proBNP (test code = 57532) <50 PG/ML HEMOGLOBIN [id number] 00:00:00 Test Item Value Reference Range Interpretation Comments HEMOGLOBIN A1c (test code = 29171) 5.9 % HEMOGLOBIN [id number] 00:00:00 Test Item Value Reference Range Interpretation Comments HEMOGLOBIN A1c (test code = 08157) 5.9 % HEMOGLOBIN [id number] 00:00:00 Test Item Value Reference Range Interpretation Comments HEMOGLOBIN A1c (test code = 92246) 5.9 % CBC W/AUTO [id number] 00:00:00 Test Item Value Reference Range Interpretation Comments WBC (test code = 1001) 5.9 K/UL RBC (test code = 1002) 5.06 M/UL HEMOGLOBIN (test code = 1003) 15.6 G/DL HEMATOCRIT (test code = 1004) 46.7 % MCV (test code = 1005) 92.3 fL MCH (test code = 1006) 30.8 PG MCHC (test code = 1007) 33.4 G/DL RDW (test code = 1038) 13.5 % NEUTROPHILS (test code = 1008) 63.0 % LYMPHOCYTES (test code = 1010) 27.6 % MONOCYTES (test code = 1011) 5.4 % EOSINOPHILS (test code = 1012) 2.0 % BASOPHILS (test code = 1013) 1.2 % IMMATURE GRANULOCYTES (test 0.8 % code = 1036) NUCLEATED RBCS (test code = 0.0 /100WBC'S 1065) PLATELET COUNT (test code = 198 K/UL 1015) ABSOLUTE NEUTROPHILS (test code 3.74 K/UL = 1066) ABSOLUTE LYMPHOCYTES (test code 1.64 K/UL = 1067) ABSOLUTE MONOCYTES (test code = 0.32 K/UL 1068) ABSOLUTE EOSINOPHILS (test code 0.12 K/UL = 1040) ABSOLUTE BASOPHILS (test code = 0.07 K/UL 1069) ABS IMMATURE GRANULOCYTES (test 0.05 K/UL code = 1020) ABS NUCLEATED RBCS (test code = 0.00 K/UL 39650) CBC W/AUTO [id number] 00:00:00 Test Item Value Reference Range Interpretation Comments WBC (test code = 1001) 5.9 K/UL RBC (test code = 1002) 5.06 M/UL HEMOGLOBIN (test code = 1003) 15.6 G/DL HEMATOCRIT (test code = 1004) 46.7 % MCV (test code = 1005) 92.3 fL MCH (test code = 1006) 30.8 PG MCHC (test code = 1007) 33.4 G/DL RDW (test code = 1038) 13.5 % NEUTROPHILS (test code = 1008) 63.0 % LYMPHOCYTES (test code = 1010) 27.6 % MONOCYTES (test code = 1011) 5.4 % EOSINOPHILS (test code = 1012) 2.0 % BASOPHILS (test code = 1013) 1.2 % IMMATURE GRANULOCYTES (test 0.8 % code = 1036) NUCLEATED RBCS (test code = 0.0 /100WBC'S 1065) PLATELET COUNT (test code = 198 K/UL 1015) ABSOLUTE NEUTROPHILS (test code 3.74 K/UL = 1066) ABSOLUTE LYMPHOCYTES (test code 1.64 K/UL = 1067) ABSOLUTE MONOCYTES (test code = 0.32 K/UL 1068) ABSOLUTE EOSINOPHILS (test code 0.12 K/UL = 1040) ABSOLUTE BASOPHILS (test code = 0.07 K/UL 1069) ABS IMMATURE GRANULOCYTES (test 0.05 K/UL code = 1020) ABS NUCLEATED RBCS (test code = 0.00 K/UL 47190) CBC W/AUTO [id number] 00:00:00 Test Item Value Reference Range Interpretation Comments WBC (test code = 1001) 5.9 K/UL RBC (test code = 1002) 5.06 M/UL HEMOGLOBIN (test code = 1003) 15.6 G/DL HEMATOCRIT (test code = 1004) 46.7 % MCV (test code = 1005) 92.3 fL MCH (test code = 1006) 30.8 PG MCHC (test code = 1007) 33.4 G/DL RDW (test code = 1038) 13.5 % NEUTROPHILS (test code = 1008) 63.0 % LYMPHOCYTES (test code = 1010) 27.6 % MONOCYTES (test code = 1011) 5.4 % EOSINOPHILS (test code = 1012) 2.0 % BASOPHILS (test code = 1013) 1.2 % IMMATURE GRANULOCYTES (test 0.8 % code = 1036) NUCLEATED RBCS (test code = 0.0 /100WBC'S 1065) PLATELET COUNT (test code = 198 K/UL 1015) ABSOLUTE NEUTROPHILS (test code 3.74 K/UL = 1066) ABSOLUTE LYMPHOCYTES (test code 1.64 K/UL = 1067) ABSOLUTE MONOCYTES (test code = 0.32 K/UL 1068) ABSOLUTE EOSINOPHILS (test code 0.12 K/UL = 1040) ABSOLUTE BASOPHILS (test code = 0.07 K/UL 1069) ABS IMMATURE GRANULOCYTES (test 0.05 K/UL code = 1020) ABS NUCLEATED RBCS (test code = 0.00 K/UL 95682) COMPREHENSIVE METABOLIC [id number] 00:00:00 Test Item Value Reference Range Interpretation Comments GLUCOSE (test code = 2217) 137 MG/DL BUN (test code = 2208) 12 MG/DL CREATININE (test code = 2214) 0.60 MG/DL eGFR (2020 CKD-EPI) (test code 99 ML/MIN/1.73 = 10110) CALC BUN/CREAT (test code = 20 RATIO 2235) SODIUM (test code = 2231) 143 MEQ/L POTASSIUM (test code = 2228) 4.3 MEQ/L CHLORIDE (test code = 2215) 105 MEQ/L CARBON DIOXIDE (test code = 25 MEQ/L 2205) CALCIUM (test code = 2209) 9.6 MG/DL PROTEIN, TOTAL (test code = 6.8 G/DL 2228) ALBUMIN (test code = 2201) 4.5 G/DL CALC GLOBULIN (test code = 2.3 G/DL 2240) CALC A/G RATIO (test code = 2.0 RATIO 2234) BILIRUBIN, TOTAL (test code = 0.2 MG/DL 2206) ALKALINE PHOSPHATASE (test 128 U/L code = 2204) AST (test code = 2218) 15 U/L ALT (test code = 2219) 11 U/L COMPREHENSIVE METABOLIC [id number] 00:00:00 Test Item Value Reference Range Interpretation Comments GLUCOSE (test code = 2217) 137 MG/DL BUN (test code = 2208) 12 MG/DL CREATININE (test code = 2214) 0.60 MG/DL eGFR (2020 CKD-EPI) (test code 99 ML/MIN/1.73 = 98552) CALC BUN/CREAT (test code = 20 RATIO 2235) SODIUM (test code = 2231) 143 MEQ/L POTASSIUM (test code = 2228) 4.3 MEQ/L CHLORIDE (test code = 2215) 105 MEQ/L CARBON DIOXIDE (test code = 25 MEQ/L 2205) CALCIUM (test code = 2209) 9.6 MG/DL PROTEIN, TOTAL (test code = 6.8 G/DL 2228) ALBUMIN (test code = 2201) 4.5 G/DL CALC GLOBULIN (test code = 2.3 G/DL 2240) CALC A/G RATIO (test code = 2.0 RATIO 2234) BILIRUBIN, TOTAL (test code = 0.2 MG/DL 2206) ALKALINE PHOSPHATASE (test 128 U/L code = 2204) AST (test code = 2218) 15 U/L ALT (test code = 2219) 11 U/L LIPID [id number] 00:00:00 Test Item Value Reference Range Interpretation Comments CHOLESTEROL (test code = 2210) 236 MG/DL TRIGLYCERIDES (test code = 2232) 274 MG/DL HDL CHOLESTEROL (test code = 2220) 54 MG/DL CALC LDL CHOL (test code = 2237) 140 MG/DL RISK RATIO LDL/HDL (test code = 2.59 RATIO 2238) LIPID [id number] 00:00:00 Test Item Value Reference Range Interpretation Comments CHOLESTEROL (test code = 2210) 236 MG/DL TRIGLYCERIDES (test code = 2232) 274 MG/DL HDL CHOLESTEROL (test code = 2220) 54 MG/DL CALC LDL CHOL (test code = 2237) 140 MG/DL RISK RATIO LDL/HDL (test code = 2.59 RATIO 2238) TSH, THIRD [id number] 00:00:00 Test Item Value Reference Range Interpretation Comments TSH, THIRD GENERATION (test code 1.600 UIU/ML = 2821) TSH, THIRD [id number] 00:00:00 Test Item Value Reference Range Interpretation Comments TSH, THIRD GENERATION (test code 1.600 UIU/ML = 2821) TSH, THIRD [id number] 00:00:00 Test Item Value Reference Range Interpretation Comments TSH, THIRD GENERATION (test code 1.600 UIU/ML = 2821) [id number] 00:00:00 Test Item Value Reference Range Interpretation Comments NT-proBNP (test code = 69952) <50 PG/ML [id number] 00:00:00 Test Item Value Reference Range Interpretation Comments NT-proBNP (test code = 08932) <50 PG/ML [id number] 00:00:00 Test Item Value Reference Range Interpretation Comments NT-proBNP (test code = 23524) <50 PG/ML LIPID [id number] 00:00:00 Test Item Value Reference Range Interpretation Comments CHOLESTEROL (test code = 2210) 252 MG/DL TRIGLYCERIDES (test code = 2232) 171 MG/DL HDL CHOLESTEROL (test code = 2220) 61 MG/DL CALC LDL CHOL (test code = 2237) 159 MG/DL RISK RATIO LDL/HDL (test code = 2.61 RATIO 2238) LIPID [id number] 00:00:00 Test Item Value Reference Range Interpretation Comments CHOLESTEROL (test code = 2210) 252 MG/DL TRIGLYCERIDES (test code = 2232) 171 MG/DL HDL CHOLESTEROL (test code = 2220) 61 MG/DL CALC LDL CHOL (test code = 2237) 159 MG/DL RISK RATIO LDL/HDL (test code = 2.61 RATIO 2238) CBC W/AUTO [id number] 00:00:00 Test Item Value Reference Range Interpretation Comments WBC (test code = 1001) 7.5 K/UL RBC (test code = 1002) 4.83 M/UL HEMOGLOBIN (test code = 1003) 15.4 G/DL HEMATOCRIT (test code = 1004) 44.3 % MCV (test code = 1005) 91.7 fL MCH (test code = 1006) 31.9 PG MCHC (test code = 1007) 34.8 G/DL RDW (test code = 1038) 13.4 % NEUTROPHILS (test code = 1008) 68.1 % LYMPHOCYTES (test code = 1010) 22.5 % MONOCYTES (test code = 1011) 7.3 % EOSINOPHILS (test code = 1012) 0.5 % BASOPHILS (test code = 1013) 0.9 % IMMATURE GRANULOCYTES (test 0.7 % code = 1036) NUCLEATED RBCS (test code = 0.0 /100WBC'S 1065) PLATELET COUNT (test code = 232 K/UL 1015) ABSOLUTE NEUTROPHILS (test code 5.11 K/UL = 1066) ABSOLUTE LYMPHOCYTES (test code 1.69 K/UL = 1067) ABSOLUTE MONOCYTES (test code = 0.55 K/UL 1068) ABSOLUTE EOSINOPHILS (test code 0.04 K/UL = 1040) ABSOLUTE BASOPHILS (test code = 0.07 K/UL 1069) ABS IMMATURE GRANULOCYTES (test 0.05 K/UL code = 1020) ABS NUCLEATED RBCS (test code = 0.00 K/UL 44215) CBC W/AUTO [id number] 00:00:00 Test Item Value Reference Range Interpretation Comments WBC (test code = 1001) 7.5 K/UL RBC (test code = 1002) 4.83 M/UL HEMOGLOBIN (test code = 1003) 15.4 G/DL HEMATOCRIT (test code = 1004) 44.3 % MCV (test code = 1005) 91.7 fL MCH (test code = 1006) 31.9 PG MCHC (test code = 1007) 34.8 G/DL RDW (test code = 1038) 13.4 % NEUTROPHILS (test code = 1008) 68.1 % LYMPHOCYTES (test code = 1010) 22.5 % MONOCYTES (test code = 1011) 7.3 % EOSINOPHILS (test code = 1012) 0.5 % BASOPHILS (test code = 1013) 0.9 % IMMATURE GRANULOCYTES (test 0.7 % code = 1036) NUCLEATED RBCS (test code = 0.0 /100WBC'S 1065) PLATELET COUNT (test code = 232 K/UL 1015) ABSOLUTE NEUTROPHILS (test code 5.11 K/UL = 1066) ABSOLUTE LYMPHOCYTES (test code 1.69 K/UL = 1067) ABSOLUTE MONOCYTES (test code = 0.55 K/UL 1068) ABSOLUTE EOSINOPHILS (test code 0.04 K/UL = 1040) ABSOLUTE BASOPHILS (test code = 0.07 K/UL 1069) ABS IMMATURE GRANULOCYTES (test 0.05 K/UL code = 1020) ABS NUCLEATED RBCS (test code = 0.00 K/UL 47517) CBC W/AUTO [id number] 00:00:00 Test Item Value Reference Range Interpretation Comments WBC (test code = 1001) 7.5 K/UL RBC (test code = 1002) 4.83 M/UL HEMOGLOBIN (test code = 1003) 15.4 G/DL HEMATOCRIT (test code = 1004) 44.3 % MCV (test code = 1005) 91.7 fL MCH (test code = 1006) 31.9 PG MCHC (test code = 1007) 34.8 G/DL RDW (test code = 1038) 13.4 % NEUTROPHILS (test code = 1008) 68.1 % LYMPHOCYTES (test code = 1010) 22.5 % MONOCYTES (test code = 1011) 7.3 % EOSINOPHILS (test code = 1012) 0.5 % BASOPHILS (test code = 1013) 0.9 % IMMATURE GRANULOCYTES (test 0.7 % code = 1036) NUCLEATED RBCS (test code = 0.0 /100WBC'S 1065) PLATELET COUNT (test code = 232 K/UL 1015) ABSOLUTE NEUTROPHILS (test code 5.11 K/UL = 1066) ABSOLUTE LYMPHOCYTES (test code 1.69 K/UL = 1067) ABSOLUTE MONOCYTES (test code = 0.55 K/UL 1068) ABSOLUTE EOSINOPHILS (test code 0.04 K/UL = 1040) ABSOLUTE BASOPHILS (test code = 0.07 K/UL 1069) ABS IMMATURE GRANULOCYTES (test 0.05 K/UL code = 1020) ABS NUCLEATED RBCS (test code = 0.00 K/UL 26126) COMPREHENSIVE METABOLIC [id number] 00:00:00 Test Item Value Reference Range Interpretation Comments GLUCOSE (test code = 2217) 106 MG/DL BUN (test code = 2208) 7 MG/DL CREATININE (test code = 2214) 0.57 MG/DL eGFR AMER. (test code 113 ML/MIN/1.73 = 26081) eGFR NON- AMER. (test 97 ML/MIN/1.73 code = 67368) CALC BUN/CREAT (test code = 12 RATIO 2235) SODIUM (test code = 2231) 141 MEQ/L POTASSIUM (test code = 2228) 4.0 MEQ/L CHLORIDE (test code = 2215) 101 MEQ/L CARBON DIOXIDE (test code = 24 MEQ/L 220) CALCIUM (test code = 2209) 9.7 MG/DL PROTEIN, TOTAL (test code = 7.3 G/DL 2228) ALBUMIN (test code = 2201) 4.8 G/DL CALC GLOBULIN (test code = 2.5 G/DL 2240) CALC A/G RATIO (test code = 1.9 RATIO 2234) BILIRUBIN, TOTAL (test code = 0.2 MG/DL 2206) ALKALINE PHOSPHATASE (test 102 U/L code = 2204) AST (test code = 2218) 14 U/L ALT (test code = 2219) 12 U/L COMPREHENSIVE METABOLIC [id number] 00:00:00 Test Item Value Reference Range Interpretation Comments GLUCOSE (test code = 2217) 106 MG/DL BUN (test code = 2208) 7 MG/DL CREATININE (test code = 2214) 0.57 MG/DL eGFR AMER. (test code 113 ML/MIN/1.73 = 80179) eGFR NON- AMER. (test 97 ML/MIN/1.73 code = 73273) CALC BUN/CREAT (test code = 12 RATIO 2235) SODIUM (test code = 2231) 141 MEQ/L POTASSIUM (test code = 2228) 4.0 MEQ/L CHLORIDE (test code = 2215) 101 MEQ/L CARBON DIOXIDE (test code = 24 MEQ/L 220) CALCIUM (test code = 2209) 9.7 MG/DL PROTEIN, TOTAL (test code = 7.3 G/DL 2228) ALBUMIN (test code = 2201) 4.8 G/DL CALC GLOBULIN (test code = 2.5 G/DL 2240) CALC A/G RATIO (test code = 1.9 RATIO 2234) BILIRUBIN, TOTAL (test code = 0.2 MG/DL 2206) ALKALINE PHOSPHATASE (test 102 U/L code = 2204) AST (test code = 2218) 14 U/L ALT (test code = 2219) 12 U/L [id number] 00:00:00 Test Item Value Reference Range Interpretation Comments TSH, THIRD GENERATION (test code 1.390 UIU/ML = 2821) [id number] 00:00:00 Test Item Value Reference Range Interpretation Comments TSH, THIRD GENERATION (test code 1.390 UIU/ML = 2821) [id number] 00:00:00 Test Item Value Reference Range Interpretation Comments TSH, THIRD GENERATION (test code 1.390 UIU/ML = 2821) HEMOGLOBIN A1c [ADDED]2021-04-05 00:00:00 Test Item Value Reference Range Interpretation Comments HEMOGLOBIN A1c (test code = 47007) 5.7 % HEMOGLOBIN A1c [ADDED]2021-04-05 00:00:00 Test Item Value Reference Range Interpretation Comments HEMOGLOBIN A1c (test code = 49587) 5.7 % HEMOGLOBIN A1c [ADDED]2021-04-05 00:00:00 Test Item Value Reference Range Interpretation Comments HEMOGLOBIN A1c (test code = 25095) 5.7 % LIPID [id number] 00:00:00 Test Item Value Reference Range Interpretation Comments CHOLESTEROL (test code = 2210) 252 MG/DL TRIGLYCERIDES (test code = 2232) 171 MG/DL HDL CHOLESTEROL (test code = 2220) 61 MG/DL CALC LDL CHOL (test code = 2237) 159 MG/DL RISK RATIO LDL/HDL (test code = 2.61 RATIO 2238) LIPID [id number] 00:00:00 Test Item Value Reference Range Interpretation Comments CHOLESTEROL (test code = 2210) 252 MG/DL TRIGLYCERIDES (test code = 2232) 171 MG/DL HDL CHOLESTEROL (test code = 2220) 61 MG/DL CALC LDL CHOL (test code = 2237) 159 MG/DL RISK RATIO LDL/HDL (test code = 2.61 RATIO 2238) CBC W/AUTO [id number] 00:00:00 Test Item Value Reference Range Interpretation Comments WBC (test code = 1001) 7.5 K/UL RBC (test code = 1002) 4.83 M/UL HEMOGLOBIN (test code = 1003) 15.4 G/DL HEMATOCRIT (test code = 1004) 44.3 % MCV (test code = 1005) 91.7 fL MCH (test code = 1006) 31.9 PG MCHC (test code = 1007) 34.8 G/DL RDW (test code = 1038) 13.4 % NEUTROPHILS (test code = 1008) 68.1 % LYMPHOCYTES (test code = 1010) 22.5 % MONOCYTES (test code = 1011) 7.3 % EOSINOPHILS (test code = 1012) 0.5 % BASOPHILS (test code = 1013) 0.9 % IMMATURE GRANULOCYTES (test 0.7 % code = 1036) NUCLEATED RBCS (test code = 0.0 /100WBC'S 1065) PLATELET COUNT (test code = 232 K/UL 1015) ABSOLUTE NEUTROPHILS (test code 5.11 K/UL = 1066) ABSOLUTE LYMPHOCYTES (test code 1.69 K/UL = 1067) ABSOLUTE MONOCYTES (test code = 0.55 K/UL 1068) ABSOLUTE EOSINOPHILS (test code 0.04 K/UL = 1040) ABSOLUTE BASOPHILS (test code = 0.07 K/UL 1069) ABS IMMATURE GRANULOCYTES (test 0.05 K/UL code = 1020) ABS NUCLEATED RBCS (test code = 0.00 K/UL 68117) CBC W/AUTO [id number] 00:00:00 Test Item Value Reference Range Interpretation Comments WBC (test code = 1001) 7.5 K/UL RBC (test code = 1002) 4.83 M/UL HEMOGLOBIN (test code = 1003) 15.4 G/DL HEMATOCRIT (test code = 1004) 44.3 % MCV (test code = 1005) 91.7 fL MCH (test code = 1006) 31.9 PG MCHC (test code = 1007) 34.8 G/DL RDW (test code = 1038) 13.4 % NEUTROPHILS (test code = 1008) 68.1 % LYMPHOCYTES (test code = 1010) 22.5 % MONOCYTES (test code = 1011) 7.3 % EOSINOPHILS (test code = 1012) 0.5 % BASOPHILS (test code = 1013) 0.9 % IMMATURE GRANULOCYTES (test 0.7 % code = 1036) NUCLEATED RBCS (test code = 0.0 /100WBC'S 1065) PLATELET COUNT (test code = 232 K/UL 1015) ABSOLUTE NEUTROPHILS (test code 5.11 K/UL = 1066) ABSOLUTE LYMPHOCYTES (test code 1.69 K/UL = 1067) ABSOLUTE MONOCYTES (test code = 0.55 K/UL 1068) ABSOLUTE EOSINOPHILS (test code 0.04 K/UL = 1040) ABSOLUTE BASOPHILS (test code = 0.07 K/UL 1069) ABS IMMATURE GRANULOCYTES (test 0.05 K/UL code = 1020) ABS NUCLEATED RBCS (test code = 0.00 K/UL 66547) CBC W/AUTO [id number] 00:00:00 Test Item Value Reference Range Interpretation Comments WBC (test code = 1001) 7.5 K/UL RBC (test code = 1002) 4.83 M/UL HEMOGLOBIN (test code = 1003) 15.4 G/DL HEMATOCRIT (test code = 1004) 44.3 % MCV (test code = 1005) 91.7 fL MCH (test code = 1006) 31.9 PG MCHC (test code = 1007) 34.8 G/DL RDW (test code = 1038) 13.4 % NEUTROPHILS (test code = 1008) 68.1 % LYMPHOCYTES (test code = 1010) 22.5 % MONOCYTES (test code = 1011) 7.3 % EOSINOPHILS (test code = 1012) 0.5 % BASOPHILS (test code = 1013) 0.9 % IMMATURE GRANULOCYTES (test 0.7 % code = 1036) NUCLEATED RBCS (test code = 0.0 /100WBC'S 1065) PLATELET COUNT (test code = 232 K/UL 1015) ABSOLUTE NEUTROPHILS (test code 5.11 K/UL = 1066) ABSOLUTE LYMPHOCYTES (test code 1.69 K/UL = 1067) ABSOLUTE MONOCYTES (test code = 0.55 K/UL 1068) ABSOLUTE EOSINOPHILS (test code 0.04 K/UL = 1040) ABSOLUTE BASOPHILS (test code = 0.07 K/UL 1069) ABS IMMATURE GRANULOCYTES (test 0.05 K/UL code = 1020) ABS NUCLEATED RBCS (test code = 0.00 K/UL 49579) COMPREHENSIVE METABOLIC [id number] 00:00:00 Test Item Value Reference Range Interpretation Comments GLUCOSE (test code = 2217) 106 MG/DL BUN (test code = 2208) 7 MG/DL CREATININE (test code = 2214) 0.57 MG/DL eGFR AMER. (test code 113 ML/MIN/1.73 = 60724) eGFR NON- AMER. (test 97 ML/MIN/1.73 code = 66144) CALC BUN/CREAT (test code = 12 RATIO 2235) SODIUM (test code = 2231) 141 MEQ/L POTASSIUM (test code = 2228) 4.0 MEQ/L CHLORIDE (test code = 2215) 101 MEQ/L CARBON DIOXIDE (test code = 24 MEQ/L 220) CALCIUM (test code = 2209) 9.7 MG/DL PROTEIN, TOTAL (test code = 7.3 G/DL 2228) ALBUMIN (test code = 2201) 4.8 G/DL CALC GLOBULIN (test code = 2.5 G/DL 2240) CALC A/G RATIO (test code = 1.9 RATIO 2234) BILIRUBIN, TOTAL (test code = 0.2 MG/DL 2206) ALKALINE PHOSPHATASE (test 102 U/L code = 2204) AST (test code = 2218) 14 U/L ALT (test code = 2219) 12 U/L COMPREHENSIVE METABOLIC [id number] 00:00:00 Test Item Value Reference Range Interpretation Comments GLUCOSE (test code = 2217) 106 MG/DL BUN (test code = 2208) 7 MG/DL CREATININE (test code = 2214) 0.57 MG/DL eGFR AMER. (test code 113 ML/MIN/1.73 = 72818) eGFR NON- AMER. (test 97 ML/MIN/1.73 code = 68985) CALC BUN/CREAT (test code = 12 RATIO 2235) SODIUM (test code = 2231) 141 MEQ/L POTASSIUM (test code = 2228) 4.0 MEQ/L CHLORIDE (test code = 2215) 101 MEQ/L CARBON DIOXIDE (test code = 24 MEQ/L 220) CALCIUM (test code = 2209) 9.7 MG/DL PROTEIN, TOTAL (test code = 7.3 G/DL 2228) ALBUMIN (test code = 2201) 4.8 G/DL CALC GLOBULIN (test code = 2.5 G/DL 2240) CALC A/G RATIO (test code = 1.9 RATIO 2234) BILIRUBIN, TOTAL (test code = 0.2 MG/DL 2206) ALKALINE PHOSPHATASE (test 102 U/L code = 2204) AST (test code = 2218) 14 U/L ALT (test code = 2219) 12 U/L [id number] 00:00:00 Test Item Value Reference Range Interpretation Comments TSH, THIRD GENERATION (test code 1.390 UIU/ML = 2821) [id number] 00:00:00 Test Item Value Reference Range Interpretation Comments TSH, THIRD GENERATION (test code 1.390 UIU/ML = 2821) [id number] 00:00:00 Test Item Value Reference Range Interpretation Comments TSH, THIRD GENERATION (test code 1.390 UIU/ML = 2821) HEMOGLOBIN A1c [ADDED]2021-04-05 00:00:00 Test Item Value Reference Range Interpretation Comments HEMOGLOBIN A1c (test code = 01191) 5.7 % HEMOGLOBIN A1c [ADDED]2021-04-05 00:00:00 Test Item Value Reference Range Interpretation Comments HEMOGLOBIN A1c (test code = 18392) 5.7 % HEMOGLOBIN A1c [ADDED]2021-04-05 00:00:00 Test Item Value Reference Range Interpretation Comments HEMOGLOBIN A1c (test code = 33801) 5.7 % LIPID [id number] 00:00:00 Test Item Value Reference Range Interpretation Comments CHOLESTEROL (test code = 2210) 252 MG/DL TRIGLYCERIDES (test code = 2232) 171 MG/DL HDL CHOLESTEROL (test code = 2220) 61 MG/DL CALC LDL CHOL (test code = 2237) 159 MG/DL RISK RATIO LDL/HDL (test code = 2.61 RATIO 2238) LIPID [id number] 00:00:00 Test Item Value Reference Range Interpretation Comments CHOLESTEROL (test code = 2210) 252 MG/DL TRIGLYCERIDES (test code = 2232) 171 MG/DL HDL CHOLESTEROL (test code = 2220) 61 MG/DL CALC LDL CHOL (test code = 2237) 159 MG/DL RISK RATIO LDL/HDL (test code = 2.61 RATIO 2238) CBC W/AUTO [id number] 00:00:00 Test Item Value Reference Range Interpretation Comments WBC (test code = 1001) 7.5 K/UL RBC (test code = 1002) 4.83 M/UL HEMOGLOBIN (test code = 1003) 15.4 G/DL HEMATOCRIT (test code = 1004) 44.3 % MCV (test code = 1005) 91.7 fL MCH (test code = 1006) 31.9 PG MCHC (test code = 1007) 34.8 G/DL RDW (test code = 1038) 13.4 % NEUTROPHILS (test code = 1008) 68.1 % LYMPHOCYTES (test code = 1010) 22.5 % MONOCYTES (test code = 1011) 7.3 % EOSINOPHILS (test code = 1012) 0.5 % BASOPHILS (test code = 1013) 0.9 % IMMATURE GRANULOCYTES (test 0.7 % code = 1036) NUCLEATED RBCS (test code = 0.0 /100WBC'S 1065) PLATELET COUNT (test code = 232 K/UL 1015) ABSOLUTE NEUTROPHILS (test code 5.11 K/UL = 1066) ABSOLUTE LYMPHOCYTES (test code 1.69 K/UL = 1067) ABSOLUTE MONOCYTES (test code = 0.55 K/UL 1068) ABSOLUTE EOSINOPHILS (test code 0.04 K/UL = 1040) ABSOLUTE BASOPHILS (test code = 0.07 K/UL 1069) ABS IMMATURE GRANULOCYTES (test 0.05 K/UL code = 1020) ABS NUCLEATED RBCS (test code = 0.00 K/UL 17907) CBC W/AUTO [id number] 00:00:00 Test Item Value Reference Range Interpretation Comments WBC (test code = 1001) 7.5 K/UL RBC (test code = 1002) 4.83 M/UL HEMOGLOBIN (test code = 1003) 15.4 G/DL HEMATOCRIT (test code = 1004) 44.3 % MCV (test code = 1005) 91.7 fL MCH (test code = 1006) 31.9 PG MCHC (test code = 1007) 34.8 G/DL RDW (test code = 1038) 13.4 % NEUTROPHILS (test code = 1008) 68.1 % LYMPHOCYTES (test code = 1010) 22.5 % MONOCYTES (test code = 1011) 7.3 % EOSINOPHILS (test code = 1012) 0.5 % BASOPHILS (test code = 1013) 0.9 % IMMATURE GRANULOCYTES (test 0.7 % code = 1036) NUCLEATED RBCS (test code = 0.0 /100WBC'S 1065) PLATELET COUNT (test code = 232 K/UL 1015) ABSOLUTE NEUTROPHILS (test code 5.11 K/UL = 1066) ABSOLUTE LYMPHOCYTES (test code 1.69 K/UL = 1067) ABSOLUTE MONOCYTES (test code = 0.55 K/UL 1068) ABSOLUTE EOSINOPHILS (test code 0.04 K/UL = 1040) ABSOLUTE BASOPHILS (test code = 0.07 K/UL 1069) ABS IMMATURE GRANULOCYTES (test 0.05 K/UL code = 1020) ABS NUCLEATED RBCS (test code = 0.00 K/UL 69442) CBC W/AUTO [id number] 00:00:00 Test Item Value Reference Range Interpretation Comments WBC (test code = 1001) 7.5 K/UL RBC (test code = 1002) 4.83 M/UL HEMOGLOBIN (test code = 1003) 15.4 G/DL HEMATOCRIT (test code = 1004) 44.3 % MCV (test code = 1005) 91.7 fL MCH (test code = 1006) 31.9 PG MCHC (test code = 1007) 34.8 G/DL RDW (test code = 1038) 13.4 % NEUTROPHILS (test code = 1008) 68.1 % LYMPHOCYTES (test code = 1010) 22.5 % MONOCYTES (test code = 1011) 7.3 % EOSINOPHILS (test code = 1012) 0.5 % BASOPHILS (test code = 1013) 0.9 % IMMATURE GRANULOCYTES (test 0.7 % code = 1036) NUCLEATED RBCS (test code = 0.0 /100WBC'S 1065) PLATELET COUNT (test code = 232 K/UL 1015) ABSOLUTE NEUTROPHILS (test code 5.11 K/UL = 1066) ABSOLUTE LYMPHOCYTES (test code 1.69 K/UL = 1067) ABSOLUTE MONOCYTES (test code = 0.55 K/UL 1068) ABSOLUTE EOSINOPHILS (test code 0.04 K/UL = 1040) ABSOLUTE BASOPHILS (test code = 0.07 K/UL 1069) ABS IMMATURE GRANULOCYTES (test 0.05 K/UL code = 1020) ABS NUCLEATED RBCS (test code = 0.00 K/UL 36308) COMPREHENSIVE METABOLIC [id number] 00:00:00 Test Item Value Reference Range Interpretation Comments GLUCOSE (test code = 2217) 106 MG/DL BUN (test code = 2208) 7 MG/DL CREATININE (test code = 2214) 0.57 MG/DL eGFR AMER. (test code 113 ML/MIN/1.73 = 21040) eGFR NON- AMER. (test 97 ML/MIN/1.73 code = 18447) CALC BUN/CREAT (test code = 12 RATIO 2235) SODIUM (test code = 2231) 141 MEQ/L POTASSIUM (test code = 2228) 4.0 MEQ/L CHLORIDE (test code = 2215) 101 MEQ/L CARBON DIOXIDE (test code = 24 MEQ/L 2206) CALCIUM (test code = 2209) 9.7 MG/DL PROTEIN, TOTAL (test code = 7.3 G/DL 2228) ALBUMIN (test code = 2201) 4.8 G/DL CALC GLOBULIN (test code = 2.5 G/DL 2240) CALC A/G RATIO (test code = 1.9 RATIO 2234) BILIRUBIN, TOTAL (test code = 0.2 MG/DL 2206) ALKALINE PHOSPHATASE (test 102 U/L code = 2204) AST (test code = 2218) 14 U/L ALT (test code = 2219) 12 U/L COMPREHENSIVE METABOLIC [id number] 00:00:00 Test Item Value Reference Range Interpretation Comments GLUCOSE (test code = 2217) 106 MG/DL BUN (test code = 2208) 7 MG/DL CREATININE (test code = 2214) 0.57 MG/DL eGFR AMER. (test code 113 ML/MIN/1.73 = 51775) eGFR NON- AMER. (test 97 ML/MIN/1.73 code = 70012) CALC BUN/CREAT (test code = 12 RATIO 2235) SODIUM (test code = 2231) 141 MEQ/L POTASSIUM (test code = 2228) 4.0 MEQ/L CHLORIDE (test code = 2215) 101 MEQ/L CARBON DIOXIDE (test code = 24 MEQ/L 220) CALCIUM (test code = 2209) 9.7 MG/DL PROTEIN, TOTAL (test code = 7.3 G/DL 2228) ALBUMIN (test code = 2201) 4.8 G/DL CALC GLOBULIN (test code = 2.5 G/DL 2240) CALC A/G RATIO (test code = 1.9 RATIO 2234) BILIRUBIN, TOTAL (test code = 0.2 MG/DL 2206) ALKALINE PHOSPHATASE (test 102 U/L code = 2204) AST (test code = 2218) 14 U/L ALT (test code = 2219) 12 U/L [id number] 00:00:00 Test Item Value Reference Range Interpretation Comments TSH, THIRD GENERATION (test code 1.390 UIU/ML = 2821) [id number] 00:00:00 Test Item Value Reference Range Interpretation Comments TSH, THIRD GENERATION (test code 1.390 UIU/ML = 2821) [id number] 00:00:00 Test Item Value Reference Range Interpretation Comments TSH, THIRD GENERATION (test code 1.390 UIU/ML = 2821) HEMOGLOBIN A1c [ADDED]2021-04-05 00:00:00 Test Item Value Reference Range Interpretation Comments HEMOGLOBIN A1c (test code = 29733) 5.7 % HEMOGLOBIN A1c [ADDED]2021-04-05 00:00:00 Test Item Value Reference Range Interpretation Comments HEMOGLOBIN A1c (test code = 85398) 5.7 % HEMOGLOBIN A1c [ADDED]2021-04-05 00:00:00 Test Item Value Reference Range Interpretation Comments HEMOGLOBIN A1c (test code = 40816) 5.7 % LIPID [id number] 00:00:00 Test Item Value Reference Range Interpretation Comments CHOLESTEROL (test code = 2210) 252 MG/DL TRIGLYCERIDES (test code = 2232) 171 MG/DL HDL CHOLESTEROL (test code = 2220) 61 MG/DL CALC LDL CHOL (test code = 2237) 159 MG/DL RISK RATIO LDL/HDL (test code = 2.61 RATIO 2238) LIPID [id number] 00:00:00 Test Item Value Reference Range Interpretation Comments CHOLESTEROL (test code = 2210) 252 MG/DL TRIGLYCERIDES (test code = 2232) 171 MG/DL HDL CHOLESTEROL (test code = 2220) 61 MG/DL CALC LDL CHOL (test code = 2237) 159 MG/DL RISK RATIO LDL/HDL (test code = 2.61 RATIO 2238) CBC W/AUTO [id number] 00:00:00 Test Item Value Reference Range Interpretation Comments WBC (test code = 1001) 7.5 K/UL RBC (test code = 1002) 4.83 M/UL HEMOGLOBIN (test code = 1003) 15.4 G/DL HEMATOCRIT (test code = 1004) 44.3 % MCV (test code = 1005) 91.7 fL MCH (test code = 1006) 31.9 PG MCHC (test code = 1007) 34.8 G/DL RDW (test code = 1038) 13.4 % NEUTROPHILS (test code = 1008) 68.1 % LYMPHOCYTES (test code = 1010) 22.5 % MONOCYTES (test code = 1011) 7.3 % EOSINOPHILS (test code = 1012) 0.5 % BASOPHILS (test code = 1013) 0.9 % IMMATURE GRANULOCYTES (test 0.7 % code = 1036) NUCLEATED RBCS (test code = 0.0 /100WBC'S 1065) PLATELET COUNT (test code = 232 K/UL 1015) ABSOLUTE NEUTROPHILS (test code 5.11 K/UL = 1066) ABSOLUTE LYMPHOCYTES (test code 1.69 K/UL = 1067) ABSOLUTE MONOCYTES (test code = 0.55 K/UL 1068) ABSOLUTE EOSINOPHILS (test code 0.04 K/UL = 1040) ABSOLUTE BASOPHILS (test code = 0.07 K/UL 1069) ABS IMMATURE GRANULOCYTES (test 0.05 K/UL code = 1020) ABS NUCLEATED RBCS (test code = 0.00 K/UL 04008) CBC W/AUTO [id number] 00:00:00 Test Item Value Reference Range Interpretation Comments WBC (test code = 1001) 7.5 K/UL RBC (test code = 1002) 4.83 M/UL HEMOGLOBIN (test code = 1003) 15.4 G/DL HEMATOCRIT (test code = 1004) 44.3 % MCV (test code = 1005) 91.7 fL MCH (test code = 1006) 31.9 PG MCHC (test code = 1007) 34.8 G/DL RDW (test code = 1038) 13.4 % NEUTROPHILS (test code = 1008) 68.1 % LYMPHOCYTES (test code = 1010) 22.5 % MONOCYTES (test code = 1011) 7.3 % EOSINOPHILS (test code = 1012) 0.5 % BASOPHILS (test code = 1013) 0.9 % IMMATURE GRANULOCYTES (test 0.7 % code = 1036) NUCLEATED RBCS (test code = 0.0 /100WBC'S 1065) PLATELET COUNT (test code = 232 K/UL 1015) ABSOLUTE NEUTROPHILS (test code 5.11 K/UL = 1066) ABSOLUTE LYMPHOCYTES (test code 1.69 K/UL = 1067) ABSOLUTE MONOCYTES (test code = 0.55 K/UL 1068) ABSOLUTE EOSINOPHILS (test code 0.04 K/UL = 1040) ABSOLUTE BASOPHILS (test code = 0.07 K/UL 1069) ABS IMMATURE GRANULOCYTES (test 0.05 K/UL code = 1020) ABS NUCLEATED RBCS (test code = 0.00 K/UL 06577) CBC W/AUTO [id number] 00:00:00 Test Item Value Reference Range Interpretation Comments WBC (test code = 1001) 7.5 K/UL RBC (test code = 1002) 4.83 M/UL HEMOGLOBIN (test code = 1003) 15.4 G/DL HEMATOCRIT (test code = 1004) 44.3 % MCV (test code = 1005) 91.7 fL MCH (test code = 1006) 31.9 PG MCHC (test code = 1007) 34.8 G/DL RDW (test code = 1038) 13.4 % NEUTROPHILS (test code = 1008) 68.1 % LYMPHOCYTES (test code = 1010) 22.5 % MONOCYTES (test code = 1011) 7.3 % EOSINOPHILS (test code = 1012) 0.5 % BASOPHILS (test code = 1013) 0.9 % IMMATURE GRANULOCYTES (test 0.7 % code = 1036) NUCLEATED RBCS (test code = 0.0 /100WBC'S 1065) PLATELET COUNT (test code = 232 K/UL 1015) ABSOLUTE NEUTROPHILS (test code 5.11 K/UL = 1066) ABSOLUTE LYMPHOCYTES (test code 1.69 K/UL = 1067) ABSOLUTE MONOCYTES (test code = 0.55 K/UL 1068) ABSOLUTE EOSINOPHILS (test code 0.04 K/UL = 1040) ABSOLUTE BASOPHILS (test code = 0.07 K/UL 1069) ABS IMMATURE GRANULOCYTES (test 0.05 K/UL code = 1020) ABS NUCLEATED RBCS (test code = 0.00 K/UL 65342) COMPREHENSIVE METABOLIC [id number] 00:00:00 Test Item Value Reference Range Interpretation Comments GLUCOSE (test code = 2217) 106 MG/DL BUN (test code = 2208) 7 MG/DL CREATININE (test code = 2214) 0.57 MG/DL eGFR AMER. (test code 113 ML/MIN/1.73 = 49108) eGFR NON- AMER. (test 97 ML/MIN/1.73 code = 08278) CALC BUN/CREAT (test code = 12 RATIO 2235) SODIUM (test code = 2231) 141 MEQ/L POTASSIUM (test code = 2228) 4.0 MEQ/L CHLORIDE (test code = 2215) 101 MEQ/L CARBON DIOXIDE (test code = 24 MEQ/L 2206) CALCIUM (test code = 2209) 9.7 MG/DL PROTEIN, TOTAL (test code = 7.3 G/DL 2228) ALBUMIN (test code = 2201) 4.8 G/DL CALC GLOBULIN (test code = 2.5 G/DL 2240) CALC A/G RATIO (test code = 1.9 RATIO 2234) BILIRUBIN, TOTAL (test code = 0.2 MG/DL 2206) ALKALINE PHOSPHATASE (test 102 U/L code = 2204) AST (test code = 2218) 14 U/L ALT (test code = 2219) 12 U/L COMPREHENSIVE METABOLIC [id number] 00:00:00 Test Item Value Reference Range Interpretation Comments GLUCOSE (test code = 2217) 106 MG/DL BUN (test code = 2208) 7 MG/DL CREATININE (test code = 2214) 0.57 MG/DL eGFR AMER. (test code 113 ML/MIN/1.73 = 92143) eGFR NON- AMER. (test 97 ML/MIN/1.73 code = 81043) CALC BUN/CREAT (test code = 12 RATIO 2235) SODIUM (test code = 2231) 141 MEQ/L POTASSIUM (test code = 2228) 4.0 MEQ/L CHLORIDE (test code = 2215) 101 MEQ/L CARBON DIOXIDE (test code = 24 MEQ/L 2206) CALCIUM (test code = 2209) 9.7 MG/DL PROTEIN, TOTAL (test code = 7.3 G/DL 2228) ALBUMIN (test code = 2201) 4.8 G/DL CALC GLOBULIN (test code = 2.5 G/DL 2240) CALC A/G RATIO (test code = 1.9 RATIO 2234) BILIRUBIN, TOTAL (test code = 0.2 MG/DL 2206) ALKALINE PHOSPHATASE (test 102 U/L code = 2204) AST (test code = 2218) 14 U/L ALT (test code = 2219) 12 U/L [id number] 00:00:00 Test Item Value Reference Range Interpretation Comments TSH, THIRD GENERATION (test code 1.390 UIU/ML = 2821) [id number] 00:00:00 Test Item Value Reference Range Interpretation Comments TSH, THIRD GENERATION (test code 1.390 UIU/ML = 2821) [id number] 00:00:00 Test Item Value Reference Range Interpretation Comments TSH, THIRD GENERATION (test code 1.390 UIU/ML = 2821) HEMOGLOBIN A1c [ADDED]2021-04-05 00:00:00 Test Item Value Reference Range Interpretation Comments HEMOGLOBIN A1c (test code = 30104) 5.7 % HEMOGLOBIN A1c [ADDED]2021-04-05 00:00:00 Test Item Value Reference Range Interpretation Comments HEMOGLOBIN A1c (test code = 93438) 5.7 % HEMOGLOBIN A1c [ADDED]2021-04-05 00:00:00 Test Item Value Reference Range Interpretation Comments HEMOGLOBIN A1c (test code = 83712) 5.7 % CBC W/AUTO [id number] 00:00:00 Test Item Value Reference Range Interpretation Comments WBC (test code = 1001) 8.1 K/UL RBC (test code = 1002) 5.07 M/UL HEMOGLOBIN (test code = 1003) 15.7 G/DL HEMATOCRIT (test code = 1004) 45.9 % MCV (test code = 1005) 90.5 fL MCH (test code = 1006) 31.0 PG MCHC (test code = 1007) 34.2 G/DL RDW (test code = 1038) 13.7 % NEUTROPHILS (test code = 1008) 61.2 % LYMPHOCYTES (test code = 1010) 30.1 % MONOCYTES (test code = 1011) 6.2 % EOSINOPHILS (test code = 1012) 1.5 % BASOPHILS (test code = 1013) 1.0 % PLATELET COUNT (test code = 1015) 249 K/UL CBC W/AUTO [id number] 00:00:00 Test Item Value Reference Range Interpretation Comments WBC (test code = 1001) 8.1 K/UL RBC (test code = 1002) 5.07 M/UL HEMOGLOBIN (test code = 1003) 15.7 G/DL HEMATOCRIT (test code = 1004) 45.9 % MCV (test code = 1005) 90.5 fL MCH (test code = 1006) 31.0 PG MCHC (test code = 1007) 34.2 G/DL RDW (test code = 1038) 13.7 % NEUTROPHILS (test code = 1008) 61.2 % LYMPHOCYTES (test code = 1010) 30.1 % MONOCYTES (test code = 1011) 6.2 % EOSINOPHILS (test code = 1012) 1.5 % BASOPHILS (test code = 1013) 1.0 % PLATELET COUNT (test code = 1015) 249 K/UL CBC W/AUTO [id number] 00:00:00 Test Item Value Reference Range Interpretation Comments WBC (test code = 1001) 8.1 K/UL RBC (test code = 1002) 5.07 M/UL HEMOGLOBIN (test code = 1003) 15.7 G/DL HEMATOCRIT (test code = 1004) 45.9 % MCV (test code = 1005) 90.5 fL MCH (test code = 1006) 31.0 PG MCHC (test code = 1007) 34.2 G/DL RDW (test code = 1038) 13.7 % NEUTROPHILS (test code = 1008) 61.2 % LYMPHOCYTES (test code = 1010) 30.1 % MONOCYTES (test code = 1011) 6.2 % EOSINOPHILS (test code = 1012) 1.5 % BASOPHILS (test code = 1013) 1.0 % PLATELET COUNT (test code = 1015) 249 K/UL HEMOGLOBIN [id number] 00:00:00 Test Item Value Reference Range Interpretation Comments HEMOGLOBIN A1c (test code = 48211) 5.7 % HEMOGLOBIN [id number] 00:00:00 Test Item Value Reference Range Interpretation Comments HEMOGLOBIN A1c (test code = 39179) 5.7 % HEMOGLOBIN [id number] 00:00:00 Test Item Value Reference Range Interpretation Comments HEMOGLOBIN A1c (test code = 80615) 5.7 % LIPID [id number] 00:00:00 Test Item Value Reference Range Interpretation Comments CHOLESTEROL (test code = 2210) 166 MG/DL TRIGLYCERIDES (test code = 2232) 209 MG/DL HDL CHOLESTEROL (test code = 2220) 47 MG/DL CALC LDL CHOL (test code = 2237) 89 MG/DL RISK RATIO LDL/HDL (test code = 1.89 RATIO 2238) LIPID [id number] 00:00:00 Test Item Value Reference Range Interpretation Comments CHOLESTEROL (test code = 2210) 166 MG/DL TRIGLYCERIDES (test code = 2232) 209 MG/DL HDL CHOLESTEROL (test code = 2220) 47 MG/DL CALC LDL CHOL (test code = 2237) 89 MG/DL RISK RATIO LDL/HDL (test code = 1.89 RATIO 2238) COMPREHENSIVE METABOLIC [id number] 00:00:00 Test Item Value Reference Range Interpretation Comments GLUCOSE (test code = 2217) 106 MG/DL BUN (test code = 2208) 10 MG/DL CREATININE (test code = 2214) 0.64 MG/DL eGFR AMER. (test code 110 ML/MIN/1.73 = 82724) eGFR NON- AMER. (test 95 ML/MIN/1.73 code = 91038) CALC BUN/CREAT (test code = 16 RATIO 2235) SODIUM (test code = 2231) 141 MEQ/L POTASSIUM (test code = 2228) 3.9 MEQ/L CHLORIDE (test code = 2215) 98 MEQ/L CARBON DIOXIDE (test code = 30 MEQ/L 2206) CALCIUM (test code = 2209) 10.1 MG/DL PROTEIN, TOTAL (test code = 7.7 G/DL 2228) ALBUMIN (test code = 2201) 5.2 G/DL CALC GLOBULIN (test code = 2.5 G/DL 2240) CALC A/G RATIO (test code = 2.1 RATIO 2234) BILIRUBIN, TOTAL (test code = 0.3 MG/DL 2206) ALKALINE PHOSPHATASE (test 111 U/L code = 2204) AST (test code = 2218) 16 U/L ALT (test code = 2219) 19 U/L COMPREHENSIVE METABOLIC [id number] 00:00:00 Test Item Value Reference Range Interpretation Comments GLUCOSE (test code = 2217) 106 MG/DL BUN (test code = 2208) 10 MG/DL CREATININE (test code = 2214) 0.64 MG/DL eGFR AMER. (test code 110 ML/MIN/1.73 = 83465) eGFR NON- AMER. (test 95 ML/MIN/1.73 code = 27100) CALC BUN/CREAT (test code = 16 RATIO 5) SODIUM (test code = 2231) 141 MEQ/L POTASSIUM (test code = 2228) 3.9 MEQ/L CHLORIDE (test code = 2215) 98 MEQ/L CARBON DIOXIDE (test code = 30 MEQ/L 2205) CALCIUM (test code = 2209) 10.1 MG/DL PROTEIN, TOTAL (test code = 7.7 G/DL 2228) ALBUMIN (test code = 2201) 5.2 G/DL CALC GLOBULIN (test code = 2.5 G/DL 2239) CALC A/G RATIO (test code = 2.1 RATIO 4) BILIRUBIN, TOTAL (test code = 0.3 MG/DL 2206) ALKALINE PHOSPHATASE (test 111 U/L code = 220) AST (test code = 2218) 16 U/L ALT (test code = 2219) 19 U/L [id number] 00:00:00 Test Item Value Reference Range Interpretation Comments TSH, THIRD GENERATION (test code 1.690 UIU/ML = 2821) [id number] 00:00:00 Test Item Value Reference Range Interpretation Comments TSH, THIRD GENERATION (test code 1.690 UIU/ML = 2821) [id number] 00:00:00 Test Item Value Reference Range Interpretation Comments TSH, THIRD GENERATION (test code 1.690 UIU/ML = 2821) CBC W/AUTO [id number] 00:00:00 Test Item Value Reference Range Interpretation Comments WBC (test code = 1001) 8.1 K/UL RBC (test code = 1002) 5.07 M/UL HEMOGLOBIN (test code = 1003) 15.7 G/DL HEMATOCRIT (test code = 1004) 45.9 % MCV (test code = 1005) 90.5 fL MCH (test code = 1006) 31.0 PG MCHC (test code = 1007) 34.2 G/DL RDW (test code = 1038) 13.7 % NEUTROPHILS (test code = 1008) 61.2 % LYMPHOCYTES (test code = 1010) 30.1 % MONOCYTES (test code = 1011) 6.2 % EOSINOPHILS (test code = 1012) 1.5 % BASOPHILS (test code = 1013) 1.0 % PLATELET COUNT (test code = 1015) 249 K/UL CBC W/AUTO [id number] 00:00:00 Test Item Value Reference Range Interpretation Comments WBC (test code = 1001) 8.1 K/UL RBC (test code = 1002) 5.07 M/UL HEMOGLOBIN (test code = 1003) 15.7 G/DL HEMATOCRIT (test code = 1004) 45.9 % MCV (test code = 1005) 90.5 fL MCH (test code = 1006) 31.0 PG MCHC (test code = 1007) 34.2 G/DL RDW (test code = 1038) 13.7 % NEUTROPHILS (test code = 1008) 61.2 % LYMPHOCYTES (test code = 1010) 30.1 % MONOCYTES (test code = 1011) 6.2 % EOSINOPHILS (test code = 1012) 1.5 % BASOPHILS (test code = 1013) 1.0 % PLATELET COUNT (test code = 1015) 249 K/UL CBC W/AUTO [id number] 00:00:00 Test Item Value Reference Range Interpretation Comments WBC (test code = 1001) 8.1 K/UL RBC (test code = 1002) 5.07 M/UL HEMOGLOBIN (test code = 1003) 15.7 G/DL HEMATOCRIT (test code = 1004) 45.9 % MCV (test code = 1005) 90.5 fL MCH (test code = 1006) 31.0 PG MCHC (test code = 1007) 34.2 G/DL RDW (test code = 1038) 13.7 % NEUTROPHILS (test code = 1008) 61.2 % LYMPHOCYTES (test code = 1010) 30.1 % MONOCYTES (test code = 1011) 6.2 % EOSINOPHILS (test code = 1012) 1.5 % BASOPHILS (test code = 1013) 1.0 % PLATELET COUNT (test code = 1015) 249 K/UL HEMOGLOBIN [id number] 00:00:00 Test Item Value Reference Range Interpretation Comments HEMOGLOBIN A1c (test code = 01880) 5.7 % HEMOGLOBIN [id number] 00:00:00 Test Item Value Reference Range Interpretation Comments HEMOGLOBIN A1c (test code = 85437) 5.7 % HEMOGLOBIN [id number] 00:00:00 Test Item Value Reference Range Interpretation Comments HEMOGLOBIN A1c (test code = 13742) 5.7 % LIPID [id number] 00:00:00 Test Item Value Reference Range Interpretation Comments CHOLESTEROL (test code = 2210) 166 MG/DL TRIGLYCERIDES (test code = 2232) 209 MG/DL HDL CHOLESTEROL (test code = 2220) 47 MG/DL CALC LDL CHOL (test code = 2237) 89 MG/DL RISK RATIO LDL/HDL (test code = 1.89 RATIO 2238) LIPID [id number] 00:00:00 Test Item Value Reference Range Interpretation Comments CHOLESTEROL (test code = 2210) 166 MG/DL TRIGLYCERIDES (test code = 2232) 209 MG/DL HDL CHOLESTEROL (test code = 2220) 47 MG/DL CALC LDL CHOL (test code = 2237) 89 MG/DL RISK RATIO LDL/HDL (test code = 1.89 RATIO 2238) COMPREHENSIVE METABOLIC [id number] 00:00:00 Test Item Value Reference Range Interpretation Comments GLUCOSE (test code = 2217) 106 MG/DL BUN (test code = 2208) 10 MG/DL CREATININE (test code = 2214) 0.64 MG/DL eGFR AMER. (test code 110 ML/MIN/1.73 = 13999) eGFR NON- AMER. (test 95 ML/MIN/1.73 code = 67565) CALC BUN/CREAT (test code = 16 RATIO 2235) SODIUM (test code = 2231) 141 MEQ/L POTASSIUM (test code = 2228) 3.9 MEQ/L CHLORIDE (test code = 2215) 98 MEQ/L CARBON DIOXIDE (test code = 30 MEQ/L 220) CALCIUM (test code = 2209) 10.1 MG/DL PROTEIN, TOTAL (test code = 7.7 G/DL 2228) ALBUMIN (test code = 2201) 5.2 G/DL CALC GLOBULIN (test code = 2.5 G/DL 2240) CALC A/G RATIO (test code = 2.1 RATIO 2234) BILIRUBIN, TOTAL (test code = 0.3 MG/DL 2206) ALKALINE PHOSPHATASE (test 111 U/L code = 2204) AST (test code = 2218) 16 U/L ALT (test code = 2219) 19 U/L COMPREHENSIVE METABOLIC [id number] 00:00:00 Test Item Value Reference Range Interpretation Comments GLUCOSE (test code = 2217) 106 MG/DL BUN (test code = 2208) 10 MG/DL CREATININE (test code = 2214) 0.64 MG/DL eGFR AMER. (test code 110 ML/MIN/1.73 = 38921) eGFR NON- AMER. (test 95 ML/MIN/1.73 code = 62040) CALC BUN/CREAT (test code = 16 RATIO 2235) SODIUM (test code = 2231) 141 MEQ/L POTASSIUM (test code = 2228) 3.9 MEQ/L CHLORIDE (test code = 2215) 98 MEQ/L CARBON DIOXIDE (test code = 30 MEQ/L 2205) CALCIUM (test code = 2209) 10.1 MG/DL PROTEIN, TOTAL (test code = 7.7 G/DL 2228) ALBUMIN (test code = 2201) 5.2 G/DL CALC GLOBULIN (test code = 2.5 G/DL 2239) CALC A/G RATIO (test code = 2.1 RATIO 2233) BILIRUBIN, TOTAL (test code = 0.3 MG/DL 2206) ALKALINE PHOSPHATASE (test 111 U/L code = 2204) AST (test code = 2218) 16 U/L ALT (test code = 2219) 19 U/L [id number] 00:00:00 Test Item Value Reference Range Interpretation Comments TSH, THIRD GENERATION (test code 1.690 UIU/ML = 2821) [id number] 00:00:00 Test Item Value Reference Range Interpretation Comments TSH, THIRD GENERATION (test code 1.690 UIU/ML = 2821) [id number] 00:00:00 Test Item Value Reference Range Interpretation Comments TSH, THIRD GENERATION (test code 1.690 UIU/ML = 2821) CBC W/AUTO [id number] 00:00:00 Test Item Value Reference Range Interpretation Comments WBC (test code = 1001) 8.1 K/UL RBC (test code = 1002) 5.07 M/UL HEMOGLOBIN (test code = 1003) 15.7 G/DL HEMATOCRIT (test code = 1004) 45.9 % MCV (test code = 1005) 90.5 fL MCH (test code = 1006) 31.0 PG MCHC (test code = 1007) 34.2 G/DL RDW (test code = 1038) 13.7 % NEUTROPHILS (test code = 1008) 61.2 % LYMPHOCYTES (test code = 1010) 30.1 % MONOCYTES (test code = 1011) 6.2 % EOSINOPHILS (test code = 1012) 1.5 % BASOPHILS (test code = 1013) 1.0 % PLATELET COUNT (test code = 1015) 249 K/UL CBC W/AUTO [id number] 00:00:00 Test Item Value Reference Range Interpretation Comments WBC (test code = 1001) 8.1 K/UL RBC (test code = 1002) 5.07 M/UL HEMOGLOBIN (test code = 1003) 15.7 G/DL HEMATOCRIT (test code = 1004) 45.9 % MCV (test code = 1005) 90.5 fL MCH (test code = 1006) 31.0 PG MCHC (test code = 1007) 34.2 G/DL RDW (test code = 1038) 13.7 % NEUTROPHILS (test code = 1008) 61.2 % LYMPHOCYTES (test code = 1010) 30.1 % MONOCYTES (test code = 1011) 6.2 % EOSINOPHILS (test code = 1012) 1.5 % BASOPHILS (test code = 1013) 1.0 % PLATELET COUNT (test code = 1015) 249 K/UL CBC W/AUTO [id number] 00:00:00 Test Item Value Reference Range Interpretation Comments WBC (test code = 1001) 8.1 K/UL RBC (test code = 1002) 5.07 M/UL HEMOGLOBIN (test code = 1003) 15.7 G/DL HEMATOCRIT (test code = 1004) 45.9 % MCV (test code = 1005) 90.5 fL MCH (test code = 1006) 31.0 PG MCHC (test code = 1007) 34.2 G/DL RDW (test code = 1038) 13.7 % NEUTROPHILS (test code = 1008) 61.2 % LYMPHOCYTES (test code = 1010) 30.1 % MONOCYTES (test code = 1011) 6.2 % EOSINOPHILS (test code = 1012) 1.5 % BASOPHILS (test code = 1013) 1.0 % PLATELET COUNT (test code = 1015) 249 K/UL HEMOGLOBIN [id number] 00:00:00 Test Item Value Reference Range Interpretation Comments HEMOGLOBIN A1c (test code = 58714) 5.7 % HEMOGLOBIN [id number] 00:00:00 Test Item Value Reference Range Interpretation Comments HEMOGLOBIN A1c (test code = 47312) 5.7 % HEMOGLOBIN [id number] 00:00:00 Test Item Value Reference Range Interpretation Comments HEMOGLOBIN A1c (test code = 13192) 5.7 % LIPID [id number] 00:00:00 Test Item Value Reference Range Interpretation Comments CHOLESTEROL (test code = 2210) 166 MG/DL TRIGLYCERIDES (test code = 2232) 209 MG/DL HDL CHOLESTEROL (test code = 2220) 47 MG/DL CALC LDL CHOL (test code = 2237) 89 MG/DL RISK RATIO LDL/HDL (test code = 1.89 RATIO 2238) LIPID [id number] 00:00:00 Test Item Value Reference Range Interpretation Comments CHOLESTEROL (test code = 2210) 166 MG/DL TRIGLYCERIDES (test code = 2232) 209 MG/DL HDL CHOLESTEROL (test code = 2220) 47 MG/DL CALC LDL CHOL (test code = 2237) 89 MG/DL RISK RATIO LDL/HDL (test code = 1.89 RATIO 2238) COMPREHENSIVE METABOLIC [id number] 00:00:00 Test Item Value Reference Range Interpretation Comments GLUCOSE (test code = 2217) 106 MG/DL BUN (test code = 2208) 10 MG/DL CREATININE (test code = 2214) 0.64 MG/DL eGFR AMER. (test code 110 ML/MIN/1.73 = 79644) eGFR NON- AMER. (test 95 ML/MIN/1.73 code = 33731) CALC BUN/CREAT (test code = 16 RATIO 2235) SODIUM (test code = 2231) 141 MEQ/L POTASSIUM (test code = 2228) 3.9 MEQ/L CHLORIDE (test code = 2215) 98 MEQ/L CARBON DIOXIDE (test code = 30 MEQ/L 2205) CALCIUM (test code = 2209) 10.1 MG/DL PROTEIN, TOTAL (test code = 7.7 G/DL 2228) ALBUMIN (test code = 2201) 5.2 G/DL CALC GLOBULIN (test code = 2.5 G/DL 2239) CALC A/G RATIO (test code = 2.1 RATIO 2234) BILIRUBIN, TOTAL (test code = 0.3 MG/DL 2207) ALKALINE PHOSPHATASE (test 111 U/L code = 2204) AST (test code = 2218) 16 U/L ALT (test code = 2219) 19 U/L COMPREHENSIVE METABOLIC [id number] 00:00:00 Test Item Value Reference Range Interpretation Comments GLUCOSE (test code = 2217) 106 MG/DL BUN (test code = 2208) 10 MG/DL CREATININE (test code = 2214) 0.64 MG/DL eGFR AMER. (test code 110 ML/MIN/1.73 = 69193) eGFR NON- AMER. (test 95 ML/MIN/1.73 code = 67889) CALC BUN/CREAT (test code = 16 RATIO 2235) SODIUM (test code = 2231) 141 MEQ/L POTASSIUM (test code = 2228) 3.9 MEQ/L CHLORIDE (test code = 2215) 98 MEQ/L CARBON DIOXIDE (test code = 30 MEQ/L 2206) CALCIUM (test code = 2209) 10.1 MG/DL PROTEIN, TOTAL (test code = 7.7 G/DL 2228) ALBUMIN (test code = 2201) 5.2 G/DL CALC GLOBULIN (test code = 2.5 G/DL 2240) CALC A/G RATIO (test code = 2.1 RATIO 2234) BILIRUBIN, TOTAL (test code = 0.3 MG/DL 2206) ALKALINE PHOSPHATASE (test 111 U/L code = 2204) AST (test code = 2218) 16 U/L ALT (test code = 2219) 19 U/L [id number] 00:00:00 Test Item Value Reference Range Interpretation Comments TSH, THIRD GENERATION (test code 1.690 UIU/ML = 2821) [id number] 00:00:00 Test Item Value Reference Range Interpretation Comments TSH, THIRD GENERATION (test code 1.690 UIU/ML = 2821) [id number] 00:00:00 Test Item Value Reference Range Interpretation Comments TSH, THIRD GENERATION (test code 1.690 UIU/ML = 2821) CBC W/AUTO [id number] 00:00:00 Test Item Value Reference Range Interpretation Comments WBC (test code = 1001) 8.1 K/UL RBC (test code = 1002) 5.07 M/UL HEMOGLOBIN (test code = 1003) 15.7 G/DL HEMATOCRIT (test code = 1004) 45.9 % MCV (test code = 1005) 90.5 fL MCH (test code = 1006) 31.0 PG MCHC (test code = 1007) 34.2 G/DL RDW (test code = 1038) 13.7 % NEUTROPHILS (test code = 1008) 61.2 % LYMPHOCYTES (test code = 1010) 30.1 % MONOCYTES (test code = 1011) 6.2 % EOSINOPHILS (test code = 1012) 1.5 % BASOPHILS (test code = 1013) 1.0 % PLATELET COUNT (test code = 1015) 249 K/UL CBC W/AUTO [id number] 00:00:00 Test Item Value Reference Range Interpretation Comments WBC (test code = 1001) 8.1 K/UL RBC (test code = 1002) 5.07 M/UL HEMOGLOBIN (test code = 1003) 15.7 G/DL HEMATOCRIT (test code = 1004) 45.9 % MCV (test code = 1005) 90.5 fL MCH (test code = 1006) 31.0 PG MCHC (test code = 1007) 34.2 G/DL RDW (test code = 1038) 13.7 % NEUTROPHILS (test code = 1008) 61.2 % LYMPHOCYTES (test code = 1010) 30.1 % MONOCYTES (test code = 1011) 6.2 % EOSINOPHILS (test code = 1012) 1.5 % BASOPHILS (test code = 1013) 1.0 % PLATELET COUNT (test code = 1015) 249 K/UL CBC W/AUTO [id number] 00:00:00 Test Item Value Reference Range Interpretation Comments WBC (test code = 1001) 8.1 K/UL RBC (test code = 1002) 5.07 M/UL HEMOGLOBIN (test code = 1003) 15.7 G/DL HEMATOCRIT (test code = 1004) 45.9 % MCV (test code = 1005) 90.5 fL MCH (test code = 1006) 31.0 PG MCHC (test code = 1007) 34.2 G/DL RDW (test code = 1038) 13.7 % NEUTROPHILS (test code = 1008) 61.2 % LYMPHOCYTES (test code = 1010) 30.1 % MONOCYTES (test code = 1011) 6.2 % EOSINOPHILS (test code = 1012) 1.5 % BASOPHILS (test code = 1013) 1.0 % PLATELET COUNT (test code = 1015) 249 K/UL HEMOGLOBIN [id number] 00:00:00 Test Item Value Reference Range Interpretation Comments HEMOGLOBIN A1c (test code = 84682) 5.7 % HEMOGLOBIN [id number] 00:00:00 Test Item Value Reference Range Interpretation Comments HEMOGLOBIN A1c (test code = 51810) 5.7 % HEMOGLOBIN [id number] 00:00:00 Test Item Value Reference Range Interpretation Comments HEMOGLOBIN A1c (test code = 59411) 5.7 % LIPID [id number] 00:00:00 Test Item Value Reference Range Interpretation Comments CHOLESTEROL (test code = 2210) 166 MG/DL TRIGLYCERIDES (test code = 2232) 209 MG/DL HDL CHOLESTEROL (test code = 2220) 47 MG/DL CALC LDL CHOL (test code = 2237) 89 MG/DL RISK RATIO LDL/HDL (test code = 1.89 RATIO 2238) LIPID [id number] 00:00:00 Test Item Value Reference Range Interpretation Comments CHOLESTEROL (test code = 2210) 166 MG/DL TRIGLYCERIDES (test code = 2232) 209 MG/DL HDL CHOLESTEROL (test code = 2220) 47 MG/DL CALC LDL CHOL (test code = 2237) 89 MG/DL RISK RATIO LDL/HDL (test code = 1.89 RATIO 2238) COMPREHENSIVE METABOLIC [id number] 00:00:00 Test Item Value Reference Range Interpretation Comments GLUCOSE (test code = 2217) 106 MG/DL BUN (test code = 2208) 10 MG/DL CREATININE (test code = 2214) 0.64 MG/DL eGFR AMER. (test code 110 ML/MIN/1.73 = 67028) eGFR NON- AMER. (test 95 ML/MIN/1.73 code = 78041) CALC BUN/CREAT (test code = 16 RATIO 2235) SODIUM (test code = 2231) 141 MEQ/L POTASSIUM (test code = 2228) 3.9 MEQ/L CHLORIDE (test code = 2215) 98 MEQ/L CARBON DIOXIDE (test code = 30 MEQ/L 2206) CALCIUM (test code = 2209) 10.1 MG/DL PROTEIN, TOTAL (test code = 7.7 G/DL 2228) ALBUMIN (test code = 2201) 5.2 G/DL CALC GLOBULIN (test code = 2.5 G/DL 2240) CALC A/G RATIO (test code = 2.1 RATIO 2234) BILIRUBIN, TOTAL (test code = 0.3 MG/DL 2206) ALKALINE PHOSPHATASE (test 111 U/L code = 2204) AST (test code = 2218) 16 U/L ALT (test code = 2219) 19 U/L COMPREHENSIVE METABOLIC [id number] 00:00:00 Test Item Value Reference Range Interpretation Comments GLUCOSE (test code = 2217) 106 MG/DL BUN (test code = 2208) 10 MG/DL CREATININE (test code = 2214) 0.64 MG/DL eGFR AMER. (test code 110 ML/MIN/1.73 = 87016) eGFR NON- AMER. (test 95 ML/MIN/1.73 code = 92926) CALC BUN/CREAT (test code = 16 RATIO 2235) SODIUM (test code = 2231) 141 MEQ/L POTASSIUM (test code = 2228) 3.9 MEQ/L CHLORIDE (test code = 2215) 98 MEQ/L CARBON DIOXIDE (test code = 30 MEQ/L 2206) CALCIUM (test code = 2209) 10.1 MG/DL PROTEIN, TOTAL (test code = 7.7 G/DL 2228) ALBUMIN (test code = 2201) 5.2 G/DL CALC GLOBULIN (test code = 2.5 G/DL 2240) CALC A/G RATIO (test code = 2.1 RATIO 2234) BILIRUBIN, TOTAL (test code = 0.3 MG/DL 2206) ALKALINE PHOSPHATASE (test 111 U/L code = 2204) AST (test code = 2218) 16 U/L ALT (test code = 2219) 19 U/L [id number] 00:00:00 Test Item Value Reference Range Interpretation Comments TSH, THIRD GENERATION (test code 1.690 UIU/ML = 2821) [id number] 00:00:00 Test Item Value Reference Range Interpretation Comments TSH, THIRD GENERATION (test code 1.690 UIU/ML = 2821) [id number] 00:00:00 Test Item Value Reference Range Interpretation Comments TSH, THIRD GENERATION (test code 1.690 UIU/ML = 2821)
[2022-09-27] MEDS ORDERED: NA CHLORIDE 0.9% 1,000 ML ONE (12:29)
[2022-09-27] MEDS ORDERED: MORPHINE 4 MG/ML SYR ONE (12:29)
[2022-09-27] MEDS ORDERED: PROMETHAZINE INJ 25 MG/ML AMP ONE ×2 (12:29→13:45)
[2022-09-27] MEDS ORDERED: DICYCLOMINE HCL 20 MG/2 ML AMP IM ONE (12:29)
[2022-09-27] MEDS ORDERED: FAMOTIDINE 20 MG/2 ML VIAL IV ONE (12:30)
[2022-09-27 12:40] LABS: Absolute Lymphocytes (CBC) 0.8 K/uL (0.7-4.9); Lymphocytes % 7.5 % (15.3-44.8); MCV 90.2 fL (80-100); MPV 7.6 fL (7.6-11.3)
[2022-09-27 12:51] LABS: Albumin 4.3 g/dL (3.4-5.0); Bilirubin Total 0.4 mg/dL (0.2-1.0); Potassium 3.4 mEq/L (3.5-5.1); Protein, Total 8.2 g/dL (6.4-8.2)
--- NOTE | 2022-09-27 13:15 | RAD REPORT ---
EXAM DESCRIPTION: CTAbdomen Pelvis W Contrast - 09/27/2022 1:07 pm CLINICAL HISTORY: Abdominal pain. ABD PAIN COMPARISON: No comparisons TECHNIQUE: Biphasic CT imaging of the abdomen and pelvis was performed with 100 ml non-ionic IV cont rast. All CT scans are performed using dose optimization technique as appropriate and may include automated exposure control or mA/KV adjustment according to patient size. FINDINGS: The lung bases are clear.Cholecystectomy clips. Small hiatal hernia. The liver, spleen, pancreas, adrenal glands and kidneys are within normal limits. No bowel obstruction, free air, free fluid or abscess. The appendix is not identified as a discrete structure, however, no secondary findings of appendicitis are identified. No evidence of significan t lymphadenopathy. No suspicious bony findings. IMPRESSION: No acute intra-abdominal or pelvic finding.
[2022-09-27 13:24] LABS: Blood Morphology Comment NOT SEEN (NOT SEEN); Platelet Estimate ADEQ; White Blood Cell Scan OK (OK)
[2022-09-27 14:35] LABS: Specific Gravity > 1.030 (1.005-1.030); Urine Bacteria None Seen /HPF (<20); Urine Bilirubin NEGATIVE (Negative); Urine Blood Negative (Negative); Urine Clarity Clear (Clear); Urine Color Light-Yellow (Yellow); Urine Glucose NEGATIVE (Negative); Urine Protein TRACE (Negative); Urine RBC <5 /HPF (None Seen); Urine Urobilinogen Normal (Normal)
--- NOTE | 2022-09-27 15:08 | EDPHYS ---
Physician Documentation [facility] Name: Delmi Pool Age: 67 yrs Sex: Female : 1955 Arrival Date: 09/27/2022 Time: 12:08 Bed 4 Private MD: ED Physician Brendon Lora HPI: 09/27 12:47 This 67 yrs old Female presents to ER via Unassigned with complaints of abdominal pain. rt 12:47 Patient presents to the ED with abdominal pain, severe in severity starting this rt morning. It is aching nature, nonradiating. She has associated nausea and vomiting. Did have a bowel movement, reported as diarrhea this morning. Patient states that she does have a prior history of bowel obstruction requiring surgery which feels similar to this. She denies other acute complaints at this time. No other aggravating alleviating factors.. Historical: - Allergies: 13:33 No Known Allergies; ko1 - Immunization history:: Adult Immunizations unknown. - Social history:: Smoking status: Patient reports the use of cigarette tobacco products, smokes one pack cigarettes per day. ROS: 12:47 Constitutional: Negative for fever, chills, and weight loss, Cardiovascular: Negative rt for chest pain, palpitations, and edema, Respiratory: Negative for shortness of breath, cough, wheezing, and pleuritic chest pain, MS/Extremity: Negative for injury and deformity, Skin: Negative for injury, rash, and discoloration, Neuro: Negative for headache, weakness, numbness, tingling, and seizure, Psych: Negative for depression, anxiety, suicide ideation, homicidal ideation, and hallucinations. 12:47 Abdomen/GI: Positive for abdominal pain, nausea and vomiting. Exam: 12:47 Head/Face: Normocephalic, atraumatic. Chest/axilla: Normal chest wall appearance and rt motion. Nontender with no deformity. No lesions are appreciated. Cardiovascular: Regular rate and rhythm with a normal S1 and S2. No gallops, murmurs, or rubs. Normal PMI, no JVD. No pulse deficits. Respiratory: Lungs have equal breath sounds bilaterally, clear to auscultation and percussion. No rales, rhonchi or wheezes noted. No increased work of breathing, no retractions or nasal flaring. Skin: Warm, dry with normal turgor. Normal color with no rashes, no lesions, and no evidence of cellulitis. MS/ Extremity: Pulses equal, no cyanosis. Neurovascular intact. Full, normal range of motion. Neuro: Awake and alert, GCS 15, oriented to person, place, time, and situation. Cranial nerves II-XII grossly intact. Motor strength 5/5 in all extremities. Sensory grossly intact. Cerebellar exam normal. Normal gait. Psych: Awake, alert, with orientation to person, place and time. Behavior, mood, and affect are within normal limits. 12:47 Constitutional: The patient appears restless, uncomfortable. 12:47 Abdomen/GI: Tenderness diffusely without rebound, guarding, distention, hyperactive bowel sound. Vital Signs: 12:20 BP 158 / 82; Pulse 90; Resp 18; Temp 98(O); Pulse Ox 96% on R/A; ko1 12:30 BP 158 / 81; Pulse 83; Resp 16; Pulse Ox 98% ; ko1 13:00 BP 128 / 95; Pulse 84; Resp 18; Pulse Ox 96% ; ko1 13:47 BP 144 / 83; Pulse 81; Resp 16; Pulse Ox 95% ; bp 14:00 BP 156 / 85; Pulse 79; Resp 18; Pulse Ox 97% ; ko1 14:30 BP 156 / 78; Pulse 85; Resp 16; Pulse Ox 97% ; ko1 15:36 BP 139 / 73; Pulse 89; Resp 16; Pulse Ox 97% ; bp 18:12 BP 100 / 50; Pulse 81; Resp 18; Pulse Ox 94% on R/A; ko1 MDM: 12:15 Patient medically screened. rt 14:52 Differential diagnosis: Bowel obstruction, electrolyte disturbance, gastroenteritis, rt colitis. Data reviewed: vital signs, nurses notes, lab test result(s), radiologic studies. Consideration of Admission/Observation Patient was admitted/placed on observation. Management of patient was discussed with the following: Hospitalist: agrees to admit. I considered the following discharge prescriptions or medication management in the emergency department Medications were administered in the Emergency Department. See MAR. Independent interpretation of the following test(s) in the Emergency Department CT Scan: My interpretation is Obstruction seen on interpretation of the CT scan images. Care significantly affected by the following chronic conditions: prior sbo. Counseling: I had a detailed discussion with the patient and/or guardian regarding: the historical points, exam findings, and any diagnostic results supporting the discharge/admit diagnosis, lab results, radiology results, the need for further work-up and treatment in the hospital. 09/27 12:15 Order name: CBC with Diff; Complete Time: 13:29 rt 09/27 12:15 Order name: CMP; Complete Time: 13:17 rt 09/27 12:15 Order name: Lipase; Complete Time: 13:17 rt 09/27 12:15 Order name: UAM; Complete Time: 14:36 rt 09/27 12:15 Order name: Lactate w/ 2H reflex if indic.; Complete Time: 13:17 rt 09/27 13:24 Order name: CBC Smear Scan; Complete Time: 13:29 EDMS 09/27 16:08 Order name: Comprehensive Metabolic Panel EDMS 09/27 16:08 Order name: Magnesium EDMS 09/27 16:08 Order name: Phosphorus EDMS 09/27 16:12 Order name: Basic Metabolic Panel EDMS 09/27 16:12 Order name: Basic Metabolic Panel EDMS 09/27 16:12 Order name: Basic Metabolic Panel EDMS 09/27 16:12 Order name: Basic Metabolic Panel EDMS 09/27 16:12 Order name: CBC with Automated Diff EDMS 09/27 16:12 Order name: CBC with Automated Diff EDMS 09/27 16:12 Order name: Magnesium EDMS 09/27 16:12 Order name: Magnesium EDMS 09/27 16:12 Order name: Phosphorus EDMS 09/27 16:12 Order name: Phosphorus EDMS 09/27 16:12 Order name: Thyroid Stimulating Hormone EDMS 09/27 16:12 Order name: Thyroid Stimulating Hormone EDMS 09/27 16:13 Order name: Osmolality, Serum EDMS 09/27 16:13 Order name: Osmolality, Urine EDMS 09/27 16:13 Order name: UR CREAT EDMS 09/27 16:13 Order name: UR SODIUM EDMS 09/27 12:15 Order name: CT Abd/Pelvis - IV Contrast Only; Complete Time: 13:17 rt 09/27 16:12 Order name: Patient Safety Orders EDMS 09/27 16:12 Order name: NPO EDMS Administered Medications: 12:33 Drug: Famotidine IVP 20 mg Route: IVP; Site: left forearm; ko1 12:33 Drug: NS 0.9% IV 1000 ml Route: IV; Rate: 1 bolus; Site: left forearm; ko1 12:34 Drug: Dicyclomine IM 20 mg Route: IM; Site: right gluteus; ko1 12:36 Drug: Promethazine IVP 12.5 mg Route: IVP; Site: left forearm; ko1 12:39 Drug: morphine IVP or IV 4 mg Route: IVP; Infused Over: 4 mins; Site: left forearm; ko1 13:42 Drug: Promethazine IVP 12.5 mg Route: IVP; Site: left forearm; ko1 16:09 Drug: Ondansetron IVP 4 mg Route: IVP; Site: left forearm; ko1 Disposition Summary: 09/27/22 15:07 Hospitalization Ordered Hospitalization Status: Observation rt Provider: Nacho Draper rt Location: Telemetry/MedSurg (observation) rt Condition: Stable rt Problem: new rt Symptoms: are unchanged rt Bed/Room Type: Standard rt Room Assignment: 414(09/27/22 16:29) eb Diagnosis - Hypo-osmolality and hyponatremia rt - Nausea with vomiting, unspecified rt Forms: - Medication Reconciliation Form rt - SBAR form rt Signatures: Dispatcher [employer] EDGretchen Zuñiga Kathy, RN RN ko1 Brendon Lora MD MD rt Corrections: (The following items were deleted from the chart) 16:29 15:07 rt eb
--- NOTE | 2022-09-27 15:08 | ER ---
Nurse's Notes [facility] Name: Delmi Pool Age: 67 yrs Sex: Female : 1955 Arrival Date: 09/27/2022 Time: 12:08 Bed 4 Private MD: Diagnosis: Hypo-osmolality and hyponatremia;Nausea with vomiting, unspecified Presentation: 09/27 12:20 Chief complaint: EMS states: patient called for nausea and abdominal pain. Coronavirus ko1 screen: At this time, the client does not indicate any symptoms associated with coronavirus-19. Ebola Screen: No symptoms or risks identified at this time. Initial Sepsis Screen: Does the patient meet any 2 criteria? No. Patient's initial sepsis screen is negative. Does the patient have a suspected source of infection? No. Patient's initial sepsis screen is negative. Risk Assessment: Do you want to hurt yourself or someone else? Patient reports no desire to harm self or others. Onset of symptoms was September 27, 2022. 12:20 Method Of Arrival: EMS: [facility] ko1 12:20 Acuity: GILBERTO 3 ko1 Triage Assessment: 13:33 General: Appears distressed, uncomfortable, Behavior is appropriate for age. Pain: ko1 Complains of pain in abdomen. Historical: - Allergies: 13:33 No Known Allergies; ko1 - Immunization history:: Adult Immunizations unknown. - Social history:: Smoking status: Patient reports the use of cigarette tobacco products, smokes one pack cigarettes per day. Screenin:45 [facility] ED Fall Risk Assessment (Adult) History of falling in the last 3 months, bp including since admission No falls in past 3 months (0 pts). Abuse screen: Denies threats or abuse. Denies injuries from another. Nutritional screening: No deficits noted. Tuberculosis screening: No symptoms or risk factors identified. Assessment: 12:45 General: SEE TRIAGE NOTE. bp 13:48 Reassessment: Patient appears in no apparent distress at this time. Patient is alert, bp oriented x 3, equal unlabored respirations, skin warm/dry/pink. 15:35 Reassessment: SON : MARLENA POOL [phone]. bp 16:45 Reassessment: attempted to call report to 4th floor, they didn't know they were getting ko1 a patient, the nurse will call me back for report when they are assigned. 17:16 Reassessment: Attempted to call report to 4th floor, no answer. ko1 17:51 Reassessment: Attempted to call 4th floor ([id number]) no answer. ko1 Vital Signs: 12:20 BP 158 / 82; Pulse 90; Resp 18; Temp 98(O); Pulse Ox 96% on R/A; ko1 12:30 BP 158 / 81; Pulse 83; Resp 16; Pulse Ox 98% ; ko1 13:00 BP 128 / 95; Pulse 84; Resp 18; Pulse Ox 96% ; ko1 13:47 BP 144 / 83; Pulse 81; Resp 16; Pulse Ox 95% ; bp 14:00 BP 156 / 85; Pulse 79; Resp 18; Pulse Ox 97% ; ko1 14:30 BP 156 / 78; Pulse 85; Resp 16; Pulse Ox 97% ; ko1 15:36 BP 139 / 73; Pulse 89; Resp 16; Pulse Ox 97% ; bp 18:12 BP 100 / 50; Pulse 81; Resp 18; Pulse Ox 94% on R/A; ko1 ED Course: 12:13 Patient arrived in ED. ko1 12:13 Brendon Lora MD is Attending Physician. rt 12:16 Steven John, UBALDO is Primary Nurse. bp 12:16 Inserted saline lock: 22 gauge in left forearm, using aseptic technique. Blood bp collected. 12:45 Patient has correct armband on for positive identification. Bed in low position. Call bp light in reach. Side rails up X2. 13:09 CT Abd/Pelvis - IV Contrast Only In Process Unspecified. EDMS 13:33 Triage completed. ko1 13:33 Arm band placed on left wrist. Patient placed in an exam room, Patient notified of wait ko1 time. 14:21 UAM Sent. ko1 14:30 Pulse ox on. NIBP on. ko1 15:06 Nacho Draper MD is Hospitalizing Provider. rt 17:16 No provider procedures requiring assistance completed. Patient admitted, IV remains in ko1 place. Administered Medications: 12:33 Drug: Famotidine IVP 20 mg Route: IVP; Site: left forearm; ko1 12:33 Drug: NS 0.9% IV 1000 ml Route: IV; Rate: 1 bolus; Site: left forearm; ko1 12:34 Drug: Dicyclomine IM 20 mg Route: IM; Site: right gluteus; ko1 12:36 Drug: Promethazine IVP 12.5 mg Route: IVP; Site: left forearm; ko1 12:39 Drug: morphine IVP or IV 4 mg Route: IVP; Infused Over: 4 mins; Site: left forearm; ko1 13:42 Drug: Promethazine IVP 12.5 mg Route: IVP; Site: left forearm; ko1 16:09 Drug: Ondansetron IVP 4 mg Route: IVP; Site: left forearm; ko1 Medication: 17:16 VIS not applicable for this client. ko1 Output: 14:00 Urine: 400ml (Voided); Total: 400ml. ko1 14:00 Urine: 450ml (Voided); Total: 850ml. ko1 Outcome: 15:07 Decision to Hospitalize by Provider. rt 18:09 Admitted to Med/surg accompanied by tech, via stretcher, room 414, on monitor, with ko1 chart, Report called to UBALDO Martin 18:09 Condition: stable 18:09 Instructed on the need for admit. 18:16 Patient left the ED. ko1 Signatures: Dispatcher [employer] EDSteven Barber, RN RN bp Carrie Harp RN RN ko1 Brendon Lora MD MD rt Corrections: (The following items were deleted from the chart) 17:37 17:16 Reassessment: attempted to call report to 4th floor, they didn't know they were ko1 getting a patient, the nurse will call me back for report when they are assigned. ko1
[2022-09-27] MEDS ORDERED: ONDANSETRON 4 MG/2 ML VIAL ONE (16:13)
--- NOTE | 2022-09-27 16:18 | P.HP ---
Certification for Inpatient Patient admitted to: Inpatient With expected LOS: >2 Midnights Practitioner: I am a practitioner with admitting privileges, knowledge of patient current condition, hospital course, and medical plan of care. Services: Services provided to patient in accordance with Admission requirements found in Title 42 Section 412.3 of the Code of Federal Regulations Patient History Date of Service: 09/27/22 Reason for admission: hyponatremia, intractable n/v, abd pain History of Present Illness: 67yo F, PMH: NIDDM2, SBO, GERD Presents to ED Due to intractable nausea/vomiting, associated with abdominal pain. Symptoms began 2 days ago. Woke up due to pain at 1 am. Pain has persisted with not significant change. Denies any aggravating or alleviating factors. Tried protonix and nausea medication at home without any relief. States she was otherwise in her usual state of health, however, did report she has been having some shoulder discomfort over the last 1-2 months and has been taking advil. Initiall said she was taking "as many that are in the bottle", but when asked further, she stated only taking advil once/week. She reports "mediocre, medium loose" bowel movements. Denies black stool. No blood in emesis. Pain reported to be in upper abdomen and b/l flanks. Denies any worsening of GERD symptoms, no fever/chills. No sick contacts. Only able to keep sips of tea down in the last 2 days. In the ER, noted to have hyponatremia in the low 120s, CT abd/pelvis reported as unremarkable. Labs with mild leukocytosis. Allergies Sulfa (Sulfonamide Antibiotics) Allergy (Verified 08/20/14 13:11) Itching/Hives/Rash Home Medications: Enoxaparin Sodium [Lovenox] 60 mg SQ BID #30 ml 08/23/14 Codeine/APAP [Tylenol W/Codeine #3 tab] 1 tab PO Q6HP PRN #60 tab 08/24/14 Warfarin Sodium [Coumadin*] 7.5 mg PO DAILY 5 PM #30 tab 08/24/14 - Past Medical/Surgical History Diabetic: No -: NIDDM2 -: SBO -: GERD -: hysterectomy -: -: bowel resection - Family History Father -: Other (see notes) Notes: thought to have from cancer Mother -: Other (see notes) Notes: spinal stenosis Brother -: Heart disease, Diabetes Notes: stents. stenosis Sister -: Blood disorders Notes: form of leukemia - Social History Smoking Status: Current every day smoker Alcohol use: No CD- Drugs: No Caffeine use: Yes Place of Residence: Home Review of Systems 10-point ROS is otherwise unremarkable Physical Examination - Physical Exam General: Alert, Oriented x3, Moderate distress HEENT: EOMI, Sclerae nonicteric Neck: Supple, No LAD Respiratory: Clear to auscultation bilaterally, Diminished Cardiovascular: No edema, Regular rate/rhythm Capillary refill: <2 Seconds Gastrointestinal: No rebound, Tenderness (most severe in epigastrium, mild-mod in b/l blanks) Musculoskeletal: No contractures, No tenderness Integumentary: No rashes, No significant lesion Neurological: Normal speech, Normal strength at 5/5 x4 extr, Normal affect - Studies Laboratory Data (last 24 hrs) 09/27/22 12:20: Sodium 121 L, Potassium 3.4 L, BUN 11, Creatinine 0.68, Glucose 145 H, Total Bilirubin 0.4, AST 19, ALT 24, Alkaline Phosphatase 92, Lipase 19 09/27/22 12:20: WBC 10.10, Hgb 15.9 H, Hct 46.0 H, Plt Count 297 Assessment and Plan - Advance Directives Does patient have a Living Will: No Does patient have a Durable POA for Healthcare: No Physician Review Additional Text: Problem list Intractable nausea/vomiting GERD Hyponatremia NIDDM2 History of SBO unclear etiology of n/v GERD pt with significant abd pain suspect GERD /ulcer, pt most tender in epigastrium; discussed with ER and patient, no GI available if patient were to need scope; reported no reason for transfer. patient is ok staying she has been taking ibuprofen, initially reported a lot, then changed her story; unclear which is accurate most tender in epigastrium as well protonix, carafate, bowel rest, IVF possible acute gastroenteritis lipase negative CT abd/pelvis negative no evidence of bacterial infection, will monitor, no antibiotics at this time Hyponatremia suspect acute, hypovolemia secondary to n/v/d, no PO intake in ~2 days given 1L bolus in ED, repeat BMP now, NS @ 100 now, adjustments after labs back; check BMP q4h tonight urine studies NIDDM2 pt states diet controlled, no meds; accucheks, sliding scale ordered serial abd exams Code: DNR Dispo: home, ~2-3 days Time Spent Managing Pts Care (In Minutes): 70
[2022-09-27] MEDS: INSULIN -REGULAR HUMAN 50 UNIT/0.5 ML ML SQ SCH ×2 (16:30→20:52)
[2022-09-27] MEDS: MORPHINE 4 MG/ML SYR IV PRN ×2 (16:30→20:57)
[2022-09-27] MEDS: ONDANSETRON 4 MG/2 ML VIAL IV PRN ×2 (16:30→23:33)
[2022-09-27] MEDS: NA CHLORIDE 0.9% 1,000 ML IV SCH ×2 (17:00→18:42)
[2022-09-27] MEDS ORDERED: SODIUM CHLORIDE 0.9% 10ML INJ IV PRN (17:21)
[2022-09-27 20:19] LABS: Albumin 3.9 g/dL (3.4-5.0); Bilirubin Total 0.4 mg/dL (0.2-1.0); Magnesium 2.3 mg/dL (1.6-2.4); Phosphorus 2.6 mg/dL (2.5-4.9); Potassium 3.6 mEq/L (3.5-5.1); Protein, Total 7.7 g/dL (6.4-8.2)
[2022-09-27] MEDS: PANTOPRAZOLE 40 MG INJ IVP SCH (20:56)
[2022-09-27] MEDS: SUCRALFATE 1GM/10ML UCUP FT SCH (20:58)
[2022-09-28 00:56] LABS: Potassium 3.3 mEq/L (3.5-5.1)
[2022-09-28] MEDS: MORPHINE 4 MG/ML SYR IV PRN ×5 (02:24→19:39)
[2022-09-28] MEDS: D5W 1,000 ML IV SCH ×2 (02:28→11:26)
[2022-09-28 04:37] LABS: Absolute Lymphocytes (CBC) 1.7 K/uL (0.7-4.9); Hematocrit 40.8 % (36.0-45.0); Lymphocytes % 21.9 % (15.3-44.8); MCV 90.5 fL (80-100); MPV 7.1 fL (7.6-11.3); RBC Red Blood Cell Count 4.51 M/uL (3.86-4.86)
[2022-09-28 04:43] LABS: Potassium 3.1 mEq/L (3.5-5.1)
[2022-09-28 04:53] LABS: Magnesium 2.1 mg/dL (1.6-2.4); Phosphorus 1.8 mg/dL (2.5-4.9); Thyroid Stimulating Hormone 1.98 uIU/mL (0.358-3.740)
[2022-09-28] MEDS ORDERED: D5W 500 ML IV ONE (05:15)
[2022-09-28] MEDS: ONDANSETRON 4 MG/2 ML VIAL IV PRN ×3 (05:24→22:40)
[2022-09-28] MEDS: INSULIN -REGULAR HUMAN 50 UNIT/0.5 ML ML SQ SCH ×4 (07:30→19:40)
--- NOTE | 2022-09-28 07:33 | P.PN ---
Date of Service: 09/28/22 Subjective: Feeling better this morning nausea improved this morning, states "stomach feels more settled" Abdomen remains tender/sore, improving states her shoulder has been hurting since a reported fall ~3 weeks ago ROS: 10 point ROS as noted above, otherwise negative Physical Exam: GEN: Alert, oriented, NAD HEENT: Normal conjunctiva, sclera anicteric CV: Regular rate and rhythm, no edema Pulm: Nonlabored respirations on room air ABD: Soft, mild-mod tenderness in epigastrium and mild b/l flanks MSK: L shoulder - tender along joint, pain with passive/active ROM, inability to fully abduct secondary to pain Integumentary: No rashes Neuro: Normal speech, normal affect vitals reviewed Problem list Intractable nausea/vomiting, unclear etiology GERD Hyponatremia Left Shoulder pain NIDDM2 History of SBO Intractable nausea/vomiting, unclear etiology GERD pt with significant abd pain on admission much improved suspect GERD /ulcer, pt most tender in epigastrium started on protonix 1 month ago for "bad reflux", which has improved she has been taking ibuprofen, initially reported a lot, then changed her story; unclear which is accurate protonix, carafate, bowel rest, IVF advance as tolerated lipase negative CT abd/pelvis negative no evidence of bacterial infection, will monitor, no antibiotics at this time Hyponatremia suspect acute, multifactorial HCTZ use and hypovolemia secondary to n/v/d, no PO intake in ~2 days rare but possible if PPI use lead to some SIADHj labs/urine studies ordered on admission, not collected for some reason sodium overcorrected; fluids switched to d5w, bolus given urine studies Nephrology consulted NIDDM2 pt states diet controlled, no meds; accucheks, sliding scale ordered Left Shoulder pain s/p fall fall ~3-4 weeks ago limited ROM secondary to pain suspect rotator cuff injury xray ordered to r/o fracture PT and f/u if no fracture Code: DNR Dispo: Home ~1-2 days
[2022-09-28] MEDS: SUCRALFATE 1GM/10ML UCUP FT SCH ×4 (07:35→19:39)
[2022-09-28] MEDS ORDERED: POTASSIUM PHOS IN 0.9 % NACL 15 MMOL/250 ML BAG IV ONE (08:00)
[2022-09-28] MEDS ORDERED: POTASS/SODIUM PHOSPHATE 1 PKT POWD.PACK PO SCH ×2 (08:00)
[2022-09-28] MEDS: PANTOPRAZOLE 40 MG INJ IVP SCH ×2 (08:08→19:39)
[2022-09-28] MEDS ORDERED: POTASSIUM 25 MEQ EFFERV TAB PO ONE ×2 (09:00→23:52)
[2022-09-28 09:08] LABS: Potassium 3.2 mEq/L (3.5-5.1)
[2022-09-28] MEDS ORDERED: ACETAMINOPHEN 500 MG TAB PO PRN (11:37)
--- NOTE | 2022-09-28 11:52 | RAD REPORT ---
EXAM DESCRIPTION: RAD - Shoulder Left 2 View - 09/28/2022 11:27 am CLINICAL HISTORY: fall 3 weeks ago COMPARISON: No comparisons FINDINGS/IMPRESSION: No acute fracture. No malalignment. Moderate left AC joint degenerative changes with subacromial spurring.
[2022-09-28] MEDS ORDERED: D5W 1,000 ML IV SCH ×2 (13:00→17:55)
[2022-09-28 14:52] LABS: Potassium 3.3 mEq/L (3.5-5.1)
[2022-09-28] MEDS: CODEINE 30MG/APAP 300MG TAB PO PRN ×2 (17:34→22:39)
[2022-09-28] MEDS ORDERED: DESMOPRESSIN 4 MCG/ML AMP IV ONE (17:56)
[2022-09-28 20:59] LABS: Potassium 3.2 mEq/L (3.5-5.1)
--- NOTE | 2022-09-28 21:00 | CON ---
Date of Consultation: 09/28/2022 Chief Complaint: Hyponatremia, hyposmolar state. History Of Present Illness: The patient presented to the hospital because of abdominal pain. She horn d intractable nausea and vomiting. She has history of SBO, GERD, and esb-xoirkjl-dsnjfpzxd diabetes mellitus. She is a 67-year-old woman who presented to the hospital with intractable nausea and vomit ing associated with abdominal pain, which was generalized symptoms that began 2 days prior to admissi on. The patient woke up due to severe pain at 1 a.m. and decided to come to the hospital. The patie nt has persisted with no significant change. She did not try an avno-qxt-uaqezru medication. She de nies nonsteroidal antiinflammatory medication. She has had diminished p.o. intake. Upon survey ques tioning although, the patient was taking Advil over last 1 or 2 months occasionally, but it is not cl ear how many doses per day a week she was taking. She also had some diarrhea. Denies black stools. She was complaining of some abdominal pain, although she denies worsening of GERD symptoms. The pat ient was found to have hyponatremia and workup in the emergency room revealed sodium of 121. The pat ient was taken off HCTZ and she received IV fluids. Sodium level has improved and it has been checke d during the last 24 hours and is in the 130s. IV fluids were changed to slow down correction of hyp onatremia. The patient complains of chronic back pain. She is to have an x-ray of the shoulder as s he was complaining of shoulder pain as well. Review of Systems: General: Denies fever or chills. Eyes: Denies vision changes. Ears, Nose, Mouth, And Throat: Denies sore throat or earache. Respiratory: Denies PND or orthopnea. Cardiovascular: Denies chest pain, palpitations, syncope, or dizziness. GI: Had abdominal pain, nausea, vomiting, and loose bowel movement. Denies melena or hematemesis. : Denies dysuria or hematuria. Musculoskeletal: Has joint aches and she was taking Advil chronically over last 2 months. All other systems reviewed and all are negative. Past Medical History: Thk-yhimhvz-nkjhavtvu diabetes mellitus, SBO, GERD, hysterectomy, , b owel resection, and hypertension. Family History: Father from cancer. Mother with spinal stenosis. Brother with heart disease, diabetes, and stenosis. Sister with blood disorder, leukemia. Social History: Current everyday smoker. Alcohol denies and denies recreational drugs. Physical Examination: General: The patient is awake, alert, and follows commands. Eyes: Anicteric sclerae. EOMI. Ears, Nose, Mouth, And Throat: Oral mucosa is moist. No pallor. Neck: Supple. No bruits. Lungs: Diminished breath sounds at the bases. Heart: S1, S2. Abdomen: Soft. Extremities: No edema. Neurologic: Normal speech. Normal affect. No tremor. Laboratory Data: Lab work on admission shows sodium 121, potassium 3.4, BUN 11, creatinine 0.68, glu cose 145, and total bilirubin 0.4. Lipase 19. WBC 10.10, hemoglobin 15.9, hematocrit 46.0, and plat elet count 297,000. Urine osmolality was 88. Random sodium diminished and it was below 15. Urine: WBC less than 5, RBC less than 5, specific gravity was greater than 1.030, ketones trace, and total protein trace. Serum osmolality was ordered and that test was not done at this point, and was reorde red. Blood work today this morning showed sodium 134, potassium 3.2, chloride 105, CO2 26, BUN 6, an d creatinine 0.52. Phosphorus level was 1.8. Magnesium was 2.1. Impression And Plan: 1.Hyponatremia. The patient was found to have hypomagnesemia and hypokalemia, which likely is corre sponding to electrolyte abnormality secondary to HCTZ. The hyponatremia has been corrected and it is slightly overcorrected and the patient is on D5W. Rate of D5W was increased and plan is to give DDA [employer], if there is no response to D5W. The patient was instructed to hold HCTZ and avoid HCTZ in the fu ture as well as avoid nonsteroidal antiinflammatory medication, which may be culprit for hyponatremia in the usual setting. 2.Hypokalemia. Continue replacement and monitor magnesium and phosphorus level. Patient has dimini shed p.o. intake and she was taking diuretic, which may account for electrolyte abnormalities. 3.Hypophosphatemia, likely due to decreased p.o. intake and gastroenteritis with nausea, vomiting, a nd diarrhea. Continue to monitor and adjust replacement as needed. TRUDI/HEBER Voice ID: [id number] Report ID: [id number]
[2022-09-28 23:41] LABS: Potassium 3.1 mEq/L (3.5-5.1)
[2022-09-29] MEDS: MORPHINE 4 MG/ML SYR IV PRN ×6 (00:01→22:09)
[2022-09-29] MEDS: ONDANSETRON 4 MG/2 ML VIAL IV PRN ×3 (04:14→15:54)
[2022-09-29] MEDS: INSULIN -REGULAR HUMAN 50 UNIT/0.5 ML ML SQ SCH ×4 (07:30→21:00)
[2022-09-29] MEDS: SUCRALFATE 1GM/10ML UCUP FT SCH ×4 (07:45→21:00)
[2022-09-29 07:58] LABS: Absolute Lymphocytes (CBC) 1.6 K/uL (0.7-4.9); Lymphocytes % 25.2 % (15.3-44.8); MCV 90.8 fL (80-100); MPV 6.9 fL (7.6-11.3); RBC Red Blood Cell Count 4.19 M/uL (3.86-4.86)
[2022-09-29 08:18] LABS: Albumin 3.5 g/dL (3.4-5.0); Bilirubin Total 0.5 mg/dL (0.2-1.0); Magnesium 1.9 mg/dL (1.6-2.4); Phosphorus 2.1 mg/dL (2.5-4.9); Potassium 3.3 mEq/L (3.5-5.1); Protein, Total 6.3 g/dL (6.4-8.2)
[2022-09-29] MEDS: PANTOPRAZOLE 40 MG INJ IVP SCH ×2 (09:00→21:25)
--- NOTE | 2022-09-29 10:16 | P.PN ---
Date of Service: 09/29/22 Subjective: Feeling better this morning; nausea improving; tolerating some fluids Abdomen feels less tender/sore this morning agitated/frustrated earlier per nurses, almost left AMA. more relaxed now No BM, +flatus +left shoulder pain, unchanged ROS: 10 point ROS as noted above, otherwise negative Physical Exam: GEN: Alert, oriented, NAD HEENT: Normal conjunctiva, sclera anicteric CV: Regular rate and rhythm, no edema Pulm: Nonlabored respirations on room air ABD: Soft, mild-mod tenderness to deep palpation in epigastrium and mild b/l flanks MSK: L shoulder - tender along anterior joint, pain with passive/active ROM, inability to fully abduct secondary to pain past ~45 degrees Integumentary: No rashes Neuro: Normal speech, normal affect vitals reviewed Problem list Intractable nausea/vomiting, unclear etiology GERD Hyponatremia Left Shoulder pain NIDDM2 History of SBO Intractable nausea/vomiting, unclear etiology GERD pt with significant abd pain on admission much improved suspect GERD /ulcer, pt most tender in epigastrium started on protonix 1 month ago for "bad reflux", which has improved she has been taking ibuprofen, initially reported a lot, then changed her story; unclear which is accurate protonix, carafate, bowel rest advance diet as tolerated lipase negative CT abd/pelvis negative no evidence of bacterial infection, will monitor, no antibiotics at this time Hyponatremia suspect acute, multifactorial HCTZ use and hypovolemia secondary to n/v/d, no PO intake in ~2 days less likely due to PPI use lead to some SIADH1 urine studies finally obtained - not done on admission as ordered; not consistent with SIADH Nephrology consulted given desmopresin x1 09/28 Urine 24hr collection ordered NIDDM2 pt states diet controlled, no meds; accucheks, sliding scale ordered Left Shoulder pain s/p fall fall ~3-4 weeks ago limited ROM secondary to pain suspect rotator cuff injury xray - no fracture; Moderate left AC joint degenerative changes with subacromial spurring recommend outpatient MRI to f/u with PCP/ortho Tylenol 3 PT and f/u Code: DNR Dispo: Home ~1-2 days
[2022-09-29] MEDS ORDERED: POTASSIUM CL SA 10 MEQ TAB PO ONE (12:00)
[2022-09-29 13:23] LABS: Potassium 3.7 mEq/L (3.5-5.1)
[2022-09-29] MEDS: CODEINE 30MG/APAP 300MG TAB PO PRN (19:33)
[2022-09-29 20:17] LABS: Potassium 3.7 mEq/L (3.5-5.1)
[2022-09-29] MEDS: MAGNESIUM OXIDE 400 MG TAB PO SCH (21:00)
[2022-09-29] MEDS ORDERED: NA CHLORIDE 0.9% 1,000 ML IV SCH (23:00)
[2022-09-29 23:24] LABS: Potassium 3.7 mEq/L (3.5-5.1)
[2022-09-29] MEDS ORDERED: POTASS/SODIUM PHOSPHATE 1 PKT POWD.PACK PO ONE (23:45)
[2022-09-30] MEDS: CODEINE 30MG/APAP 300MG TAB PO PRN ×3 (01:50→13:09)
--- NOTE | 2022-09-30 01:57 | PN ---
Date of Progress Note: 09/29/2022 Chief Complaint: Hyponatremia, hyposmolar state. History Of Present Illness: Patient presented to the hospital because of abdominal pain, nausea, and vomiting. She developed intractable nausea and vomiting at least 2 days before admission. She has history of SBO and GERD, as well as vis-asqxint-jyiipnldt diabetes mellitus, and hypertension. She w as treated for hypertension with HCTZ. She also was taking Advil for generalized pain and she does n ot recall exactly how many doses per day she was taking to control generalized pain, body ache. Sodi um level on admission was 121, and subsequently with IV fluids has improved to 130s, which was slight over-correction and the patient was started on D5W to slow down correction of hyponatremia, although she did not respond to D5W and 1 dose of DDAVP was given. Subsequently, sodium level has decreased. The patient is on potassium replacement for hypokalemia. Review of Systems: Denies fever or chills. Physical Examination: Lungs: Clear to auscultation bilaterally. Heart: S1, S2. Abdomen: Soft. Extremities: No edema. Impression And Plan: 1.Hyponatremia. Patient was found to have hypomagnesemia, hypokalemia, related to previous treatmen t with HCTZ. 2.Nausea and vomiting, decreased solute intake. The patient received IV fluids and sodium level is slightly over corrected. The patient was given DDAVP. Sodium level is trending down. Plan is to st art normal saline and resume p.o. fluid restriction. Monitor electrolytes closely and adjust treatme nt accordingly. 3.Hypokalemia. Continue to monitor magnesium and phosphorus level. Patient received potassium chlo ride for hypokalemia. 4.Hypophosphatemia secondary to gastroenteritis with decreased p.o. intake. Adjust medication and provide replacement for hypophosphatemia as needed. EB/MODL Voice ID: [id number] Report ID: [id number]
[2022-09-30] MEDS: ONDANSETRON 4 MG/2 ML VIAL IV PRN ×3 (01:59→20:04)
[2022-09-30] MEDS: MORPHINE 4 MG/ML SYR IV PRN ×6 (02:31→22:39)
[2022-09-30 06:44] LABS: Magnesium 1.7 mg/dL (1.6-2.4); Phosphorus 2.5 mg/dL (2.5-4.9); Potassium 3.6 mEq/L (3.5-5.1)
--- NOTE | 2022-09-30 07:08 | P.PN ---
Date of Service: 09/30/22 Subjective: nausea remains; continues to improve less pain/tenderness in abdomen L shoulder pain remains unchanged; needing frequent IV pain medications encouraged to eat/drink more if able to tolerate no new / worsening problems ROS: 10 point ROS as noted above, otherwise negative Physical Exam: GEN: Alert, oriented, NAD HEENT: Normal conjunctiva, sclera anicteric CV: Regular rate and rhythm, no edema Pulm: Nonlabored respirations on room air ABD: Soft, mild-mod tenderness to deep palpation in epigastrium and mild b/l flanks MSK: L shoulder - tender along anterior joint, pain with passive/active ROM, inability to fully abduct secondary to pain past ~45 degrees, ROM ok at elbow Integumentary: No rashes Neuro: Normal speech, normal affect vitals reviewed Problem list Intractable nausea/vomiting, unclear etiology GERD Hyponatremia Left Shoulder pain, rotator cuff tear likely NIDDM2 History of SBO Intractable nausea/vomiting, unclear etiology GERD pt with significant abd pain on admission much improved suspect GERD /ulcer, pt most tender in epigastrium started on protonix 1 month ago for "bad reflux", which has improved taking 4 ibuprofen twice a day - for ~3-4 weeks - confirmed 09/30 protonix, carafate, bowel rest advance diet as tolerated lipase negative CT abd/pelvis negative no evidence of bacterial infection, will monitor, no antibiotics at this time Hyponatremia suspect acute, multifactorial HCTZ use and hypovolemia secondary to n/v/d, no PO intake in ~2 days less likely due to PPI use lead to some SIADH1 urine studies finally obtained - not done on admission as ordered; not consistent with SIADH Nephrology consulted given desmopresin x1 09/28 Urine 24hr collection ordered NIDDM2 pt states diet controlled, no meds; accucheks, sliding scale ordered Left Shoulder pain s/p fall fall ~3-4 weeks ago limited ROM secondary to pain/weakness suspect rotator cuff injury xray - no fracture; Moderate left AC joint degenerative changes with subacromial spurring MRI ordered, suspect rotator cuff injury; r/o labrum tear / SLAP tear norco, morphine PT Code: DNR Dispo: Home ~1-2 days
[2022-09-30] MEDS: INSULIN -REGULAR HUMAN 50 UNIT/0.5 ML ML SQ SCH ×4 (07:30→21:00)
[2022-09-30] MEDS: SUCRALFATE 1GM/10ML UCUP FT SCH ×4 (07:51→20:05)
[2022-09-30] MEDS: PANTOPRAZOLE 40 MG INJ IVP SCH ×2 (08:00→20:04)
[2022-09-30] MEDS: MAGNESIUM OXIDE 400 MG TAB PO SCH ×2 (08:00→20:05)
[2022-09-30] MEDS ORDERED: POTASSIUM CL SA 10 MEQ TAB PO ONE (09:00)
[2022-09-30] MEDS ORDERED: POTASSIUM 25 MEQ EFFERV TAB PO ONE (10:11)
[2022-09-30] MEDS ORDERED: MAGNESIUM SULFATE 1 gm IVPB 1 GM/100 ML BAG IV ONE (10:11)
[2022-09-30] MEDS ORDERED: POTASS/SODIUM PHOSPHATE 1 PKT POWD.PACK PO ONE (10:13)
[2022-09-30 13:43] LABS: Potassium 4.8 mEq/L (3.5-5.1)
[2022-09-30 14:34] VITALS: BMI 27.6
--- NOTE | 2022-09-30 15:35 | RAD REPORT ---
EXAM DESCRIPTION: MRI - Shoulder Left Wo Cont - 09/30/2022 3:25 pm CLINICAL HISTORY: r/o rotator cuff / labral injury, fall 3-4wks ago COMPARISON: Shoulder Left 2 View dated 09/28/2022 FINDINGS: The AC joint demonstrates mild osseous and capsular hypertrophy. The acromion process is m ildly concave. The rotator cuff demonstrates large full-thickness tears of the supraspinatus and infraspinatus tendo ns. Subscapularis tendon is also torn. Biceps tendon appears dislocated. The glenoid labrum is preserved. There is no evidence of a labral tear. Advanced glenohumeral osteoarthritis. Small joint effusion. IMPRESSION: Large full-thickness tears of the supraspinatus and infraspinatus tendons. Subscapularis tendon is torn. Biceps tendon is very thin and probably dislocated. Glenohumeral osteoarthritis.
[2022-09-30] MEDS: HYDROCODONE/APAP 5/325 MG TAB PO PRN ×2 (17:08→23:41)
[2022-09-30 18:23] LABS: Potassium 4.1 mEq/L (3.5-5.1)
--- NOTE | 2022-09-30 20:20 | P.CNS ---
Chief Complaint: hyponatremia, intractable n/v, abd pain History of Present Illness: Patient here for intractable nausea and vomiting and abdominal pain she has a history of GERD as well as wot-svjaynr-szvygdzyg diabetes and hypertension she has been taking Advil for pain. Patient incidentally noted that her left shoulder has been bothering her she had a fall at home 3 weeks ago and did not experience shoulder problems prior to that an MRI was performed they found an MRI and we were consulted Allergies ketorolac [From Toradol] Allergy (Verified 09/27/22 18:46) Itching/Hives/Rash Sulfa (Sulfonamide Antibiotics) Allergy (Verified 08/20/14 13:11) Itching/Hives/Rash tramadol Allergy (Verified 09/27/22 18:46) Shortness of breath Home Medications: Fenofibrate 40 mg PO DAILY 09/27/22 Pantoprazole Sodium [Protonix] 20 mg PO DAILY 09/27/22 hydroCHLOROthiazide [Hydrochlorothiazide] 25 mg PO DAILY 09/27/22 - Past Medical/Surgical History Diabetic: No -: NIDDM2 -: SBO -: GERD -: hysterectomy -: -: bowel resection - Family History Father Medical History: Other (see notes) Notes: thought to have from cancer Mother Medical History: Other (see notes) Notes: spinal stenosis Brother Medical History: Heart disease, Diabetes Notes: stents. stenosis Sister Medical History: Blood disorders Notes: form of leukemia - Social History Smoking Status: Current every day smoker Alcohol use: No CD- Drugs: No Caffeine use: Yes Place of Residence: Home Review of Systems 10-point ROS is otherwise unremarkable Physical Examination Temp Pulse Resp BP Pulse Ox 98.2 F 82 18 161/92 H 95 09/30/22 16:00 09/30/22 16:00 09/30/22 18:37 09/30/22 16:00 09/30/22 16:00 General: Oriented x3 HEENT: Normocephalic Neck: Supple Cardiovascular: Normal pulses Capillary refill: <2 Seconds Musculoskeletal: Other (Left shoulder she has pain in the area of her shoulder joint she can only actively abduct approximately 85 degrees passively we can get her to 165 but that was difficult there is some element of frozen shoulder her strength was 4/5 to external rotation 3/5 to supraspinatus consistent with her rotato) Imagings Data: Name: ASHWIN LOMBARDI Acct Number: [id number] : 1955 Age: 67 Sex: F Unit Number: [id number] Ord Phys: Nacho Draper MD [facility] Dr: NONE Status: ADM IN [address] [place] [address]-[id number] Exam Date: 09/30/22 Reason for Exam: r/o rotator cuff / labral injury, fall 3-4wks ago Report Status: Signed EXAM DESCRIPTION: MRI - Shoulder Left Wo Cont - 09/30/2022 3:25 pm CLINICAL HISTORY: r/o rotator cuff / labral injury, fall 3-4wks ago COMPARISON: Shoulder Left 2 View dated 09/28/2022 FINDINGS: The AC joint demonstrates mild osseous and capsular hypertrophy. The acromion process is mildly concave. The rotator cuff demonstrates large full-thickness tears of the supraspinatus and infraspinatus tendons. Subscapularis tendon is also torn. Biceps tendon appears dislocated. The glenoid labrum is preserved. There is no evidence of a labral tear. Advanced glenohumeral osteoarthritis. Small joint effusion. IMPRESSION: Large full-thickness tears of the supraspinatus and infraspinatus tendons. Subscapularis tendon is torn. Biceps tendon is very thin and probably dislocated. Glenohumeral osteoarthritis. Dictated By: Olivier Parry MD 09/30/22 1535 Signed By: Olivier Parry MD 09/30/22 153 - Problems (1) Rotator cuff tear arthropathy of left shoulder Current Visit: Yes Status: Acute Plan: She will follow-up on an outpatient basis for her rotator cuff tear she was asymptomatic prior to 3 weeks ago when she had a fall MRI was done today and it did show a large tear including the supraspinatus and subscapularis she should work with physical therapy while she is in the hospital on strength and range of motion of her shoulder she has some signs that she is developing frozen shoulder rotator cuff repair is an outpatient day surgery
[2022-10-01] MEDS: MORPHINE 4 MG/ML SYR IV PRN ×3 (03:42→13:17)
--- NOTE | 2022-10-01 03:54 | PN ---
Date of Progress Note: 09/30/2022 Chief Complaint: Hyponatremia. History Of Present Illness: The patient is a 67-year-old woman who came to the hospital because of a bdominal pain, nausea, and vomiting. She developed intractable nausea and vomiting at least 2 days p rior to admission. She has history of SBO, GERD, non-insulin dependent diabetes mellitus, hypertensi on. She was treated for hypertension with HCTZ. She also was taking Advil on occasions and she does not have a good recollection how often and what dose of Advil she was taking. At the time of admiss ion, she was found to have hyponatremia and received normal saline. Subsequently, sodium level was o dasia corrected and she had D5W and received 1 dose of DDAVP for over corrected sodium. Review of Systems: Denies fever or chills. Physical Examination: Lungs: Clear to auscultation bilaterally. Heart: S1, S2. Abdomen: Soft. Extremities: No edema. Impression And Plan: Hyponatremia. The patient has multiple electrolyte abnormalities including hyp onatremia hypomagnesia, and hypokalemia related to previous treatment with HCTZ. HCTZ is on hold. T he patient received replacement for hypomagnesemia, hypokalemia, and hypophosphatemia. Hyponatremia overall has improved and plan is to adjust IV fluids and treatment with sodium chloride tablets. The patient received 1 dose of DDAVP because the sodium level was found to be slightly over corrected. Recent blood work showed improvement of sodium level in gradual pace. Plan is to monitor electrolyte panel and adjust treatment accordingly. The patient is on normal saline. EB/MODL Voice ID: [id number] Report ID: [id number]
[2022-10-01] MEDS: HYDROCODONE/APAP 5/325 MG TAB PO PRN ×2 (05:41→12:23)
[2022-10-01 06:23] LABS: Magnesium 2.4 mg/dL (1.6-2.4); Potassium 4.2 mEq/L (3.5-5.1)
[2022-10-01] MEDS: INSULIN -REGULAR HUMAN 50 UNIT/0.5 ML ML SQ SCH ×2 (07:30→11:30)
[2022-10-01] MEDS: MAGNESIUM OXIDE 400 MG TAB PO SCH (08:18)
[2022-10-01] MEDS: PANTOPRAZOLE 40 MG INJ IVP SCH (08:18)
[2022-10-01] MEDS: SUCRALFATE 1GM/10ML UCUP FT SCH ×2 (08:19→11:55)
[2022-10-01 12:10] VITALS: BP 153/75; TEMP 97.3
[2022-10-01 14:30] VITALS: O2SAT 94
--- NOTE | 2022-10-01 14:57 | P.DS ---
Admission Date: 09/27/22 Discharge Date: 10/01/22 Reason for Admission: hyponatremia, intractable n/v, abd pain Brief History of Present Illness: 67yo F, PMH: NIDDM2, SBO, GERD presented to the ED due to intractable nausea/vomiting, associated with abdominal pain. Symptoms began 2 days prior. She tried protonix and nausea medication at home without any relief. She did report she was having shoulder discomfort for 1-2 months and had been taking advil. She reported medium loose bowel movements. She denied black stool. No blood in emesis. She reported pain in the upper abdomen and b/l flanks. In the ER, noted to have hyponatremia in the low 120s, CT abd/pelvis reported as unremarkable. Labs with mild leukocytosis. Patient was hospitalized for further management. Hospital Course: Diagnosis Intractable nausea/vomiting, unclear etiology GERD Hyponatremia Left Shoulder pain, rotator cuff tear likely NIDDM2 History of SBO The following medical problems were addressed during the hospital stay: Intractable nausea/vomiting, unclear etiology GERD suspect secondary to GERD /ulcer. Patient's symptoms improved with IV Protonix and sucralfate. She tolerated soft diet. She is deemed clinically stable for discharge. She is prescribed oral Protonix. Hyponatremia suspect acute secondary to dehydration and hydrochlorothiazide use. Nephrology was consulted, hydrochlorothiazide discontinued. Patient hydrated with IV normal saline urine studies not consistent with SIADH Patient was given a dose of desmopressin. Sodium level has stabilized around 130 without sodium replacement. Deemed stable for discharge per nephrology. NIDDM2 pt states diet controlled, no meds. Left Shoulder pain s/p fall fall ~3-4 weeks ago limited ROM secondary to pain/weakness MRI of the shoulder demonstrate full-thickness tear of supraspinatus tendon and infraspinatus tendons as well as a tear in the subscapularis tendon. Seen by Ortho who recommended outpatient repair xray - no fracture; Moderate left AC joint degenerative changes with subacromial spurring [place] as needed for pain management Seen by PT who recommended no further inpatient PT needs. Vital Signs/Physical Exam: Temp Pulse Resp BP Pulse Ox 97.3 F 84 18 153/75 H 97 10/01/22 12:00 10/01/22 12:00 10/01/22 13:17 10/01/22 12:00 10/01/22 13:17 General: Alert, In no apparent distress, Oriented x3 HEENT: Mucous membr. moist/pink Neck: Supple, JVD not distended Respiratory: Clear to auscultation bilaterally, Normal air movement Cardiovascular: No edema, Regular rate/rhythm, Normal S1 S2 Gastrointestinal: Normal bowel sounds, Soft and benign, Non-distended, No tenderness Musculoskeletal: No swelling Integumentary: No rashes, No cyanosis Neurological: Normal strength at 5/5 x4 extr Laboratory Data at Discharge: WBC 6.40 thou/uL (4.3-10.9) 09/29/22 07:09 Hgb 13.0 g/dL (12.0-15.0) 09/29/22 07:09 Hct 38.0 % (36.0-45.0) 09/29/22 07:09 Plt Count 256 thou/uL (152-406) 09/29/22 07:09 Sodium 131 mEq/L (136-145) L 10/01/22 06:00 Potassium 4.2 mEq/L (3.5-5.1) 10/01/22 06:00 BUN 5 mg/dL (7-18) L 10/01/22 06:00 Creatinine 0.58 mg/dL (0.55-1.02) 10/01/22 06:00 Glucose 114 mg/dL (74-106) H 10/01/22 06:00 Phosphorus 2.5 mg/dL (2.5-4.9) 09/30/22 05:30 Magnesium 2.4 mg/dL (1.6-2.4) 10/01/22 06:00 Total Bilirubin 0.5 mg/dL (0.2-1.0) 09/29/22 07:09 AST 12 U/L (15-37) L 09/29/22 07:09 ALT 21 U/L (13-56) 09/29/22 07:09 Alkaline Phosphatase 72 U/L (45-117) 09/29/22 07:09 Lipase 18 U/L (13-75) 09/28/22 08:29 Home Medications: Fenofibrate 40 mg PO DAILY 09/27/22 Pantoprazole Sodium [Protonix] 20 mg PO DAILY 09/27/22 Amlodipine [Norvasc*] 5 mg PO DAILY #30 tab 10/01/22 Hydrocodone 5/APAP 325 [[place] 5/325*] 1 tab PO Q6H PRN #20 tab 10/01/22 Mag Hydrox/Al Hydrox/Simeth [Maalox Suspension] 15 ml PO TID PRN #355 ml 10/01/22 Pantoprazole [Protonix Tab] 40 mg PO BID #60 tab 10/01/22 New Medications: Mag Hydrox/Al Hydrox/Simeth [Maalox Suspension] 15 ml PO TID PRN #355 ml PRN Reason: heartburn Hydrocodone 5/APAP 325 [[place] 5/325*] 1 tab PO Q6H PRN #20 tab PRN Reason: Pain Scale 5-7 (Moderate) Amlodipine [Norvasc*] 5 mg PO DAILY #30 tab Pantoprazole [Protonix Tab] 40 mg PO BID #60 tab Physician Discharge Instructions: Patient presented with intractable nausea/vomiting, associated with abdominal pain. Diet: AHA Activity: Ad isi Followup: Valentina Rueda MD [COURTESY - CAN ADMIT] - 1 Week NONE,NONE [Primary Care Provider] - Bruce Denny MD [ACTIVE - CAN ADMIT] - 1 Week Time spent managing pt's care (in minutes): 38
--- NOTE | 2022-10-01 16:59 | PN ---
Date of Progress Note: 10/01/2022 Subjective: The patient was admitted with hyponatremia secondary to hydrochlorothiazide. The patient's after treatment sodium trending up nicely. The patient is asymptomatic. The patient tolerated full diet. Physical Examination: Vital Signs: Blood pressure 137/73, pulse of 88. Chest: Clear to auscultation. Heart: S1, S2. Regular. Abdomen: Soft, nontender. Extremities: No edema. Neurological: Alert. No focality. Laboratory Data: Hemoglobin 13. Sodium 131, potassium 4.2, bicarb 20, BUN 5, creatinine 0.5, calcium 9.1, magnesium 2.4. Urine osmolality 454. Current Medications: The patient on include; 1. Zofran. 2. Pantoprazole. 3. Carafate. 4. Magnesium oxide. Assessment And Plan: 1. Hyponatremia secondary to hydrochlorothiazide induced, recovered, resolved. Keep holding hydrochlorothiazide. Sodium has been corrected appropriately. The patient cleared from the Renal standpoint for discharge planning to follow up with Dr. Abrams in 2-3 weeks. Please avoid adding any hydrochlorothiazide. 2. Hypertension, not controlled. Discontinue hydrochlorothiazide and replace it with amlodipine. 3. Hypomagnesemia, status post supplement. We will follow up. time spend exam the patient face to face , reviewing the DATA lab and Radiology, placing the order, discussing the case with the patient ,reviewing the care plan with sales floor team member including the nursing staff , discussing with the hospitalist >35 min ORIANA Voice ID: [id number] Report ID: [id number] CHERISE
== END 2022-10-01 15:30 | disposition home or self-care (01) | DRG 381 ==
LOC: ER 12:08 → ERHOLD 16:05 → 4TH 18:11
PROVIDERS: ADMIT Hospitalist; ATTEND Internal Medicine
DX: K22.10 Ulcer of esophagus without bleeding (principal); E87.1 Hypo-osmolality and hyponatremia; M25.512 Pain in left shoulder; E86.1 Hypovolemia; G89.29 Other chronic pain; M54.9 Dorsalgia, unspecified; E11.9 Type 2 diabetes mellitus without complications; K52.9 Noninfective gastroenteritis and colitis, unspecified; E86.0 Dehydration; E87.6 Hypokalemia; E83.42 Hypomagnesemia; K21.9 Gastro-esophageal reflux disease without esophagitis; F17.210 Nicotine dependence, cigarettes, uncomplicated; Z66 Do not resuscitate; Z88.1 Allergy status to other antibiotic agents; Z88.5 Allergy status to narcotic agent; Z79.01 Long term (current) use of anticoagulants; Z90.710 Acquired absence of both cervix and uterus
CPT/HCPCS: 36415; 74177; 80048; 80053; 81001; 82533; 82947; 83605; 83690; 83735; 83930; 83935; 84100; 84300; 84443; 85025; 86335; 94760; 96372; 96374; 96375; 97161; 99285; C9113; J0500; J2405; J2550; J2597; J3475; J7030; Q9967

== ENCOUNTER 2023-03-24 11:40 | Inpatient (IN) | payer OTHER ==
--- OUTSIDE RECORDS SUMMARY | 2023-03-24 11:47 | XMS REPORT | Continuity of Care Document ---
:1955 Author Organization [facility] t Address [address] [place] [address] [place] [id number] Care Team Providers Name Role Phone Pcp, Patient Does Not Have A Primary Care Physician +[id number] Doctor Unassigned, [place] Attending Clinician Unavailable Maegan Denny MD Attending Clinician MAEGAN DENNY Attending Clinician Unavailable AMBREEN_FARHANA Attending Clinician Unavailable AMBREEN_SUYAPA Admitting Clinician Unavailable Payers Payer Name Policy Type Policy Number Effective Date Expiration Date [facility] [employer] [id number] 2022 (MEDICARE 00:00:00 REPLACEMENT HMO) Problems This patient has no known problems. Allergies, Adverse Reactions, Alerts Allergy Allergy Status Severity Reaction(s) Onset Inactive Treating Comm ents Source Name Type Date Date Clinician Sulfa Propensi Active (Sulfona ty to 3-05 mide adverse 00:00: Antibiot reaction 00 ics) to drug NO KNOWN Drug Active [facility] ALLERGIE Class [facility]y of [facility] [place] [facility] Social History Social Habit Start Date Stop Date Quantity Comments Source Exposure to 2022-09-27 2022-10-07 Not sure [facility] SARS-CoV-2 (event) 00:00:00 14:36:00 Medica l Branch Sex Ass[birth year] At [birth year] [facility] 00:00:00 00:00:00 Medical Branch Smoking Status Start Date Stop Date Source Tobacco smoking consumption [facility] Medical unknown Branch Medications Ordered Filled Start Stop Current Ordering Indication Dosage Frequency Signature Comments Components Source Medication Medication Date Date Medication? Clinician (SIG) Name Name triamcinolo 2022- No [id number] 40mg [facility] 10-07 ity of acetonide 21:45: 20:33 [place] (KENALOG) 00 :00 Medical injection Branch 40 mg triamcinolo 2022- No [id number] 40mg 40 mg, [facility] 10-0708 Intramuscu ity of acetonide 21:45: 20:33 [place] 00 :00 1 dose, On Medi alex injection Mon Branch 40 mg 10/07/22 at 1645, Routine triamcinolo 2022- No [id number] 40mg [facility] 10-0708 ity of acetonide 21:45: 20:33 [place] (KENALOG) 00 :00 Medical injection Branch 40 mg triamcinolo 2022- No [id number] 40mg 40 mg, [facility] 10-07 Intramuscu ity of acetonide 21:45: 20:33 [place], [place]CE, [place] ([place] 00 :00 1 dose, On Medi alex injection Mon Branch 40 mg 10/07/22 at 1645, Routine traMADoL 50 2022- No 4647 50mg Take 1 Uni vers mg tablet 10-07-30 tablet by ity of 00:00: 04:59 mouth [place] 00 :00 every 6 Medical (six) Branch hours as needed for Pain (scale 4-6) for up to 7 days. Indication s: acute pain traMADoL 50 2022- No 4647 50mg Take 1 Uni vers mg tablet 10-07 05-30 tablet by ity of 00:00: 04:59 mouth [place] 00 :00 every 6 Medical (six) Branch hours as needed for Pain (scale 4-6) for up to 7 days. Indication s: acute pain traMADoL 50 2022- No 4647 50mg Take 1 Uni vers mg tablet 10-07 05-30 tablet by ity of 00:00: 04:59 mouth [place] 00 :00 every 6 Medical (six) Branch hours as needed for Pain (scale 4-6) for up to 7 days. Indication s: acute pain traMADoL 50 3-0 2023- No 4647 50mg Take 1 Uni vers mg tablet - 05-30 tablet by ity of 00:00: 04:59 mouth [place] 00 :00 every 6 Medical (six) Branch hours as needed for Pain (scale 4-6) for up to 7 days. Indication s: acute pain traMADoL 50 2023-0 2023- No 4647 50mg Take 1 Uni vers mg tablet 5- 05-30 tablet by ity of 00:00: 04:59 mouth [place] 00 :00 every 6 Medical (six) Branch hours as needed for Pain (scale 4-6) for up to 7 days. Indication s: acute pain traMADoL 50 2023-0 2023- No 4647 50mg Take 1 Uni vers mg tablet 5- 05-30 tablet by ity of 00:00: 04:59 mouth [place] 00 :00 every 6 Medical (six) Branch hours as needed for Pain (scale 4-6) for up to 7 days. Indication s: acute pain amLODIPine 2023-0 Yes 5mg Take 1 Unive rs 5 mg tablet 5-16 tablet by ity of 00:00: mouth in [place] the Medical morning. Branch amLODIPine 2023-0 Yes 5mg Take 1 Unive rs 5 mg tablet 5-16 tablet by ity of 00:00: mouth in [place] the Medical morning. Branch amLODIPine 2023-0 Yes 5mg Take 1 Unive rs 5 mg tablet 5-16 tablet by ity of 00:00: mouth in [place] the Medical morning. Branch amLODIPine 2023-0 Yes 5mg Take 1 Unive rs 5 mg tablet 5-16 tablet by ity of 00:00: mouth in [place] the Medical morning. Branch amLODIPine 2023-0 Yes 5mg Take 1 Unive rs 5 mg tablet 5-16 tablet by ity of 00:00: mouth in [place] the Medical morning. Branch amLODIPine 2023-0 Yes 5mg Take 1 Unive rs 5 mg tablet 5-16 tablet by ity of 00:00: mouth in [place] the Medical morning. Branch amLODIPine 2023-0 Yes 5mg Take 1 Unive rs 5 mg tablet 5-16 tablet by ity of 00:00: mouth in [place] the Medical morning. Branch amLODIPine 2023-0 Yes 5mg Take 1 Unive rs 5 mg tablet 5-16 tablet by ity of 00:00: mouth in [place] 00 the morning. Branch amLODIPine 2022-0 Yes 5mg Take 1 Unive rs 5 mg tablet 5-16 tablet by ity of 00:00: mouth in [place] the morning. Branch pantoprazol 0 Yes Univer s e 40 mg EC 4-04 ity of tablet 00:00: [place] [address] Medical Branch pantoprazol 2022-0 Yes Univer s e 40 mg EC 4-04 ity of tablet 00:00: [place] [address] Medical Branch pantoprazol 2022-0 Yes Univer s e 40 mg EC 4-04 ity of tablet 00:00: [address] pantoprazol 0 Yes Univer s e 40 mg EC 4-04 ity of tablet 00:00: [place] [address] Medical Branch pantoprazol 2022-0 Yes Univer s e 40 mg EC 4-04 ity of tablet 00:00: [address] Branch pantoprazol 2022-0 Yes Univer s e 40 mg EC 4-04 ity of tablet 00:00: [address] Branch pantoprazol 2022-0 Yes Univer s e 40 mg EC 4-04 ity of tablet 00:00: [address] pantoprazol 0 Yes Univer s e 40 mg EC 4-04 ity of tablet 00:00: [address] pantoprazol 2022-0 Yes Univer s e 40 mg EC 4-04 ity of tablet 00:00: [place] [address] [facility] [place] Dose 2021-05 No 20 Unknown 2-12 00:00: 00 TAKE 2 2021-05 No 250 TABLETS ON 2-12 DAY 1 THEN 00:00: TAKE 1 00 TABLET A DAY FOR 4 DAYS. PREGABALIN 2021-05 No 300 300 MG 2-12 CAPSULE</Te 00:00: xt> <Code> 00 <Value>0022 [id number]&amp ;lt;/Value> <CodingSyst em>NDC</Cod ingSystem> </Code> Dose 2021-05 No Unknown 2-12 00:00: 00 Dose 2021-05 No Unknown 2-12 00:00: 00 Dose 2021-05 No Unknown 2-12 00:00: 00 Dose 2021-05 No Unknown 2-12 00:00: 00 INHALE 1 2021-05 No [id number] PUFF TWICE 2-12 5 DAILY. 00:00: 00 INHALE 2 2021-05 No [id number] PUFFS EVERY 2-12 4 TO 6 00:00: HOURS 00 NEEDED. PROAIR HFA 2021-05 No 90 MCG 2-12 INHALER</Te 00:00: xt> <Code> 00 <Value>2169 [id number]&amp ;lt;/Value> <CodingSyst em>NDC</Cod ingSystem> </Code> Dose 2021-05 No Unknown 2-12 00:00: 00 AMOX-CLAV 2021-05 No 875-125 MG 2-12 TABLET</Nicolás 00:00: t> <Code> 00 <Value>0009 [id number]</Va lue> <CodingSyst em>NDC</Cod ingSystem> </Code& gt HYDROCHLORO 2021-05 No 25 THIAZIDE 25 2-12 MG 00:00: TAB</Text> 00 <Code> <Value>0017 [id number]</Va lue> <CodingSyst em>NDC</Cod ingSystem> </Code& TAKE 2021-05 No 20 TABLET AT 2-12 BEDTIME. 00:00: 00 Dose 2021-05 No Unknown 2-12 00:00: 00 PREGABALIN 2021-05 No 150 150 MG 2-12 CAPSULE</Te 00:00: xt> <Code> 00 <Value>0022 [id number]&amp ;lt;/Value> <CodingSyst em>NDC</Cod ingSystem> </Code> TAKE 5 ML 2021-05 No [id number] DAILY AT 2-12 BEDTIME. 00:00: 00 TAKE 2021-05 No 160 TABLET 2-12 DAILY. 00:00: 00 TAKE 2021-05 No 300 CAPSULE BY 2-12 MOUTH THREE 00:00: TIMES DAILY 00 Dose 2021-05 No Unknown 2-12 00:00: 00 TAKE 2021-05 No 800 TABLET 4 2-12 TIMES 00:00: DAILY. 00 Dose 2021-05 No Unknown 2-12 00:00: 00 PREGABALIN 0 No 300 MG 9-19 CAPSULE 00:00: 00 [...] 2022-0 No 20 Unknown 8 00:00: 00 &lt 2022-0 No 300 8- 00:00: 00 &lt 2022-0 No 300 8- 00:00: 00 Dose 2022-0 No 20 Unknown 8 00:00: 00 &lt 2022-0 No 300 8- 00:00: 00 Dose 2022-0 No 20 Unknown 8 00:00: 00 Dose 2022-0 No Unknown 8 00:00: 00 Lyrica 150 2022-0 No 1mg mg capsule 8 00:00: 00 &lt 2022-0 No 300 8- 00:00: 00 Dose 2022-0 No 20 Unknown 8 00:00: 00 Dose 2022-0 No 20 Unknown 8 00:00: 00 Dose 2022-0 No 20 Unknown 8 00:00: 00 &lt 2022-0 No 300 8- 00:00: 00 &lt 2022-0 No 300 8- 00:00: 00 Dose 2022-0 No 20 Unknown 8- 00:00: 00 &lt 2022-0 No 300 8-16 00:00: 00 Dose 2022-0 No 20 Unknown 8 00:00: 00 Dose 2022-0 No Unknown 8 00:00: 00 Lyrica 150 2022-0 No 1mg [...] DAILY 00 Dose 2022-0 No 250 Unknown 715 00:00: 00 &lt 2022-0 No 300 7-15 00:00: 00 azithromyci 2022-0 No mg n 250 mg 7-15 tablet 00:00: 00 prednisone 2022-0 No mg 20 mg 7-15 tablet 00:00: 00 Lyrica 150 2022-0 No 1mg mg capsule 15 00:00: 00 TAKE 1 2022-0 No 875 TABLET BY 7-15 MOUTH TWICE 00:00: DAILY 00 Dose 2022-0 No 250 Unknown 7-15 00:00: 00 &lt 2022-0 No 300 7-15 00:00: 00 pregabalin 2022-0 No 1mg 300 mg 7-06 capsule 00:00: 00 &lt 2022-0 No 20 - 00:00: 00 TAKE 1 2022-0 No 600 TABLET BY 7-06 MOUTH FOUR 00:00: TIMES DAILY 00 &lt 2022-0 No 300 7- 00:00: 00 Dose 2022-0 No 250 Unknown 11-21 00:00: 00 &lt 2022-0 No 20 7- 00:00: 00 pregabalin 2022-0 No 1mg 300 [...] 2022-0 No Unknown 4-07 00:00: 00 amoxicillin 2022-0 No 1mg 875 [...] mg/5 00:00: mL oral 00 syrup Dose 2022-0 No Unknown 3-30 00:00: 00 [...] mg/5 00:00: mL oral 00 syrup Dose 2022-0 No Unknown 3-30 00:00: 00 [...] 2022-0 No Unknown 3-07 00:00: 00 albuterol 2022-0 No 12mcg/a sulfate HFA 2-12 ctuatio 90 [...] 00:00: n on aerosol 00 inhaler azithromyci 2022-0 No mg n 250 mg 1-12 tablet [...] mg 1-12 tablet 00:00: 00 ProAir HFA 2022-0 No 12mcg/a [...] mg base)/3 mL nebulizatio n soln pregabalin 2022-0 No 1mg 300 mg 1-12 [...] 300 mg 1-17 capsule 00:00: 00 gabapentin 1-1 No 1mg [...] mg 0-05 capsule 00:00: 00 ProAir HFA 2020-0 No 12mcg/a 90 8-06 ctuatio mcg/actuati 00:00: n on aerosol 00 inhaler ProAir HFA 2020-0 No 12mcg/a 90 8-06 ctuatio mcg/actuati 00:00: n on aerosol 00 inhaler amoxicillin 1-0 No 1mg 875 8-06 mg-potassiu 00:00: m 00 clavulanate 125 mg tablet Dose 2020-0 No Unknown 8-06 00:00: 00 gabapentin 1-0 No 1mg 600 mg 8-06 tablet 00:00: 00 gabapentin 1-0 No 1mg 600 mg 8-06 tablet 00:00: 00 prednisone 1-0 No mg 20 mg 8-06 tablet 00:00: 00 prednisone 2021-0 No mg 20 mg 8-06 tablet 00:00: 00 gabapentin 2021-0 No 1mg 300 mg 8-06 capsule 00:00: 00 gabapentin 2021-0 No 1mg 300 mg 8-06 capsule 00:00: 00 ProAir HFA 2021-0 No 12mcg/a 90 8-06 ctuatio mcg/actuati 00:00: n on aerosol 00 inhaler ProAir HFA 2021-0 No 12mcg/a 90 8-06 ctuatio mcg/actuati 00:00: n on aerosol 00 inhaler amoxicillin 2021-0 No 1mg 875 8-06 mg-potassiu 00:00: m [...] mg 8-06 capsule 00:00: 00 ProAir HFA 2021-0 No 12mcg/a 90 8-06 [...] mg 8-06 capsule 00:00: 00 ProAir HFA 2021-0 No 12mcg/a 90 8-06 ctuatio mcg/actuati 00:00: n on aerosol 00 inhaler ProAir HFA 2021-0 No 12mcg/a 90 8-06 ctuatio mcg/actuati 00:00: n on aerosol 00 inhaler amoxicillin 2021-0 No 1mg 875 8-06 mg-potassiu 00:00: m [...] 00:00: n on aerosol 00 inhaler Combivent 0 No 1mcg/ac Respimat 20 1-04 tuation mcg-100 00:00: mcg/actuati 00 on solution for inhalation prednisone 2020-0 No mg 20 mg 1-04 tablet 00:00: 00 ipratropium 2020-0 No 3mg 0.5 1-04 base)/3 mg-albutero 00:00: mL l 3 mg (2.5 00 mg base)/3 mL nebulizatio n soln ProAir HFA 2020-0 No 12mcg/a 90 1-04 ctuatio mcg/actuati 00:00: n on aerosol 00 inhaler Combivent 0 No 1mcg/ac Respimat 20 -04 tuation mcg-100 00:00: mcg/actuati 00 on solution for inhalation prednisone 2020-0 No mg 20 mg -04 tablet 00:00: 00 ipratropium 2020-0 No 3mg 0.5 -04 base)/3 mg-albutero 00:00: mL l 3 mg (2.5 00 mg base)/3 mL nebulizatio n soln ProAir HFA 2020-0 No 12mcg/a 90 -04 ctuatio mcg/actuati 00:00: n on aerosol 00 inhaler Combivent 0 No 1mcg/ac Respimat 20 -04 tuation mcg-100 00:00: mcg/actuati 00 on solution for inhalation prednisone 2020-0 No mg 20 mg 1-04 tablet 00:00: 00 ipratropium 2020-0 No 3mg [...] 20 mg 1-04 tablet 00:00: 00 ipratropium 2020-0 No 3mg [...] 00:00: mcg/actuati 00 on breath activated gabapentin 2019- No 1mg 600 mg 1-23 tablet 00:00: 00 gabapentin 2019- No 1mg 300 mg 1-23 capsule 00:00: 00 ProAir 2019- No 1mcg/ac RespiClick 1-23 tuation 90 00:00: mcg/actuati 00 on breath activated gabapentin 2019- No 1mg 600 mg 1-23 tablet 00:00: 00 gabapentin 2019-1 No 1mg 300 mg 1-23 capsule 00:00: 00 ProAir 2019- No 1mcg/ac RespiClick 1-23 tuation 90 00:00: mcg/actuati 00 on breath activated gabapentin 2019- No 1mg 600 mg 1-23 tablet 00:00: 00 gabapentin 2019-1 No 1mg 300 mg 1-23 capsule 00:00: 00 ProAir 2019- No 1mcg/ac RespiClick 1-23 tuation 90 00:00: mcg/actuati 00 on breath activated gabapentin 2019- No 1mg 600 mg 1-23 tablet 00:00: 00 gabapentin 2019-1 No 1mg 300 mg 1-23 capsule 00:00: 00 Combivent 2020-0 No 1mcg/ac Respimat 20 9 tuation mcg-100 00:00: mcg/actuati 00 on solution for inhalation Advair 0 No 1mcg/do Diskus 250 9-03 se mcg-50 [...] activated Combivent 2020-0 No 1mcg/ac Respimat 20 01-19 tuation mcg-100 00:00: mcg/actuati 00 on solution [...] activated Combivent 2020-0 No 1mcg/ac Respimat 20 01-19 tuation mcg-100 00:00: mcg/actuati 00 on solution [...] Name Observation Time Observation Value Comments Source Systolic blood 2022-10-07 20:05:00 133 mm[Hg] [facility] Diastolic blood 2022-10-07 20:05:00 70 mm[Hg] [facility] Heart rate 2022-10-07 20:05:00 96 /min [facility] Body height 2022-10-07 20:05:00 152.4 cm [facility] Body weight 2022-10-07 20:05:00 69.854 kg [facility] BMI 2022-10-07 20:05:00 30.08 kg/m2 [facility] BP Systolic 2022-03-26 10:04:00 148 mm[Hg] BP [...] Respiratory Rate 2019-12-20 14:00:00 16.00 /min Procedures Procedure Date / Time Performing Clinician Source Performed EXTERNAL PROVIDER 2022-10-21 05:01:00 Doctor Unassigned, No [facility] RECORDS Name Medical Branch RADIOLOGY DOCUMENTATION 2022-10-11 05:01:00 Doctor Unassigned, N o [facility] Name Medical Branch MEDICAL 2022-10-09 05:01:00 Doctor Unassigned, No Univer [facility] RELEASE/CLEARANCE FORMS Name Medical Branch Plan of Care Planned Activity Planned Date Details Comments Source Goal Plan of Care Note [code = 18889-5] Goal Plan of Care Note [code = 56596-7] Goal Plan of Care Note [code = 74698-4] Goal Plan of Care Note [code = 93156-0] Goal Plan of Care Note [code = 13806-6] Goal Plan of Care Note [code = 70305-4] Goal Plan of Care Note [code = 07506-9] Goal Plan of Care Note [code = 42173-3] Goal Plan of Care Note [code = 42252-8] Goal Plan of Care Note [code = 55354-3] Goal Plan of Care Note [code = 79680-3] Goal Plan of Care Note [code = 37282-0] Goal Plan of Care Note [code = 91423-8] Goal Plan of Care Note [code = 10901-4] Goal Plan of Care Note [code = 66082-3] Goal Plan of Care Note [code = 66530-5] Goal Plan of Care Note [code = 25058-8] Goal Plan of Care Note [code = 71840-6] Goal Plan of Care Note [code = 92634-1] Goal Plan of Care Note [code = 75839-7] Goal Plan of Care Note [code = 56086-9] Goal Plan of Care Note [code = 76751-3] Goal Plan of Care Note [code = 64336-0] Goal Plan of Care Note [code = 81553-7] Goal Plan of Care Note [code = 54385-0] Goal Plan of Care Note [code = 92586-3] Goal Plan of Care Note [code = 93100-9] Goal Plan of Care Note [code = 15226-3] Goal Plan of Care Note [code = 78098-3] Goal Plan of Care Note [code = 99426-8] Goal Plan of Care Note [code = 27874-1] Goal Plan of Care Note [code = 65888-8] Goal Plan of Care Note [code = 15515-9] Goal Plan of Care Note [code = 63407-0] Goal Plan of Care Note [code = 42703-9] Goal Plan of Care Note [code = 74905-4] Goal Plan of Care Note [code = 71855-0] Goal Plan of Care Note [code = 25629-2] Goal Plan of Care Note [code = 03488-9] Goal Plan of Care Note [code = 28463-1] Goal Plan of Care Note [code = 38116-4] Goal Plan of Care Note [code = 52359-0] Goal Plan of Care Note [code = 59939-8] Goal Plan of Care Note [code = 43695-4] Goal Plan of Care Note [code = 40754-7] Goal Plan of Care Note [code = 38525-9] Goal Plan of Care Note [code = 08885-5] Goal Plan of Care Note [code = 62198-2] Goal Plan of Care Note [code = 36441-7] Goal Plan of Care Note [code = 96273-3] Goal Plan of Care Note [code = 90932-0] Goal Plan of Care Note [code = 97038-4] Goal Plan of Care Note [code = 48597-6] Goal Plan of Care Note [code = 49528-5] Goal Plan of Care Note [code = 90506-2] Goal Plan of Care Note [code = 79182-3] Goal Plan of Care Note [code = 99921-2] Goal Plan of Care Note [code = 53837-9] Goal Plan of Care Note [code = 81602-6] Goal Plan of Care Note [code = 40498-1] Goal Plan of Care Note [code = 85816-6] Goal Plan of Care Note [code = 25735-2] Goal Plan of Care Note [code = 18920-1] Goal Plan of Care Note [code = 99498-9] Goal Plan of Care Note [code = 37375-6] Goal Plan of Care Note [code = 62984-3] Goal Plan of Care Note [code = 49604-0] Goal Plan of Care Note [code = 48108-8] Goal Plan of Care Note [code = 53402-6] Goal Plan of Care Note [code = 33281-5] Goal Plan of Care Note [code = 85857-3] Goal Plan of Care Note [code = 10947-5] Goal Plan of Care Note [code = 17097-8] Goal Plan of Care Note [code = 60725-9] Goal Plan of Care Note [code = 40488-7] Goal Plan of Care Note [code = 42420-2] Goal Plan of Care Note [code = 12642-3] Goal Plan of Care Note [code = 73073-7] Goal Plan of Care Note [code = 33830-1] Goal Plan of Care Note [code = 86570-0] Goal Plan of Care Note [code = 34831-9] Goal Plan of Care Note [code = 73654-6] Goal Plan of Care Note [code = 06248-6] Encounters Start End Encounter Admission Attending Care Care Encounter Source Date/Time Date/Time Type Type Clinicians Facility Department ID 2023-03-19 2023-03-19 Outpatient SFA SFA [id number] Jaden 16:04:06 16:04:06 1101 F [facility] 2023-02-27 2023-02-27 Outpatient SFA SFA [id number] Jaden 13:54:38 13:54:38 1012 [facility] 2023-02-18 2023-02-18 Outpatient SFA SFA [id number] Jaden 14:41:08 14:41:08 1003 [facility] 2023-01-30 2023-01-30 Outpatient SFA SFA [id number] 023 Jaden 17:52:20 17:52:20 0914 [facility] 2023-01-14 2023-01-14 Outpatient SFA SFA [id number] Jaden 12:11:29 12:11:29 0829 [facility] 2022-12-11 2022-12-11 Outpatient SFA SFA [id number] 023 Jaden 17:36:37 17:36:37 0726 [facility] 2022-10-21 2022-10-21 Orders Doctor ROSE [id number] Univers 00:00:00 00:00:00 Only Unassigned, CLAIR 350.1.13.10 ity of [place] [facility] 4.2.7.2.686 Nicolás as [phone] [address] 2022-10-15 2022-10-15 Telephone [facility] 1.2.840.114 10 [id number] Univers 00:00:00 00:00:00 Maegan L HEALTH 350.1.13.10 it y of [place] 4.2.7.2.686 Nicolás as CECILE?BLEA [id number] Ok dical JUAN ALBERTO 198 [facility] OFFICE [facility] 2022-10-11 2022-10-11 Orders Doctor ROSE 1.2.840.114 [id number] Univers 00:00:00 00:00:00 Only Unassigned, CLAIR 350.1.13.10 ity of [place] [facility] 4.2.7.2.686 Nicolás as [phone] [address] 2022-10-11 2022-10-11 Telephone [facility] 1.2.840.114 10 [id number] Univers 00:00:00 00:00:00 Maegan L HEALTH 350.1.13.10 it y of [place] 4.2.7.2.686 Nicolás as CECILE?BLEA [id number] Ok simone ROBERTS 198 [facility] 2022-10-09 2022-10-09 Orders Doctor ROSE 1.2.840.114 [id number] Univers 00:00:00 00:00:00 Only Unassigned, CLAIR 350.1.13.10 ity of [place] [facility] 4.2.7.2.686 Nicolás as [id number] [address] 2022-10-09 2022-10-09 Telephone [facility] 1.2.840.114 10 [id number] Univers 00:00:00 00:00:00 Maegan L HEALTH 350.1.13.10 it y of [place] 4.2.7.2.686 Nicolás as CECILE?BLEA [phone] Ok dical KN 198 [facility] OFFICE BUILDING 2022-10-07 2022-10-07 Outpatient R ADILENE [facility] [id number] [facility] 14:30:00 16:47:40 MAEGAN corrigan [facility] 2022-10-07 2022-10-07 Office Adilene [facility] 1.2.412.087 [id number] Univers 14:30:00 16:47:40 Visit Maegan LAWSON 350.1.13.10 it y of [place] 4.2.7.2.686 Nicolás as CECILE?BLEA [phone] Me simone ROBERTS 198 [facility] OFFICE [facility] 2022-10-07 2022-10-07 [facility]phone [facility] 1.2.840.114 10 [id number] Univers 00:00:00 00:00:00 Maegan LAWSON 350.1.13.10 it y of [place] 4.2.7.2.686 Nicolás as CECILE?BLEA [id number] Ok simone ROBERTS 198 [facility] OFFICE [facility] 2022-10-02 2022-10-02 [facility]phone [facility] 1.2.840.114 10 [id number] Univers 00:00:00 00:00:00 Maegan LAWSON 350.1.13.10 it y of [place] 4.2.7.2.686 Nicolás as CECILE?BLEA [phone] Ok simone ROBERTS 198 [facility] 2022-08-20 2022-08-20 Outpatient SFA SFA [id number] 023 Jaden 13:43:24 13:43:24 0404 [facility] 2022-05-29 2022-05-29 Outpatient SFA SFA [id number] 023 Jaden 14:07:16 14:07:16 0111 [facility] 2022-04-30 2022-04-30 Outpatient SFA SFA [id number] 022 Jaden 15:19:29 15:19:29 1213 [facility] 2022-04-30 2022-04-30 Outpatient [id number] 00:00:00 00:00:00 Visit 42bf-47ea 2bf-47ea-a -z2in-0g8 [id number] [id number] 2022-03-27 2022-03-27 Outpatient DMG DMG [id number] [facility] 00:00:00 00:00:00 [address] [facility] 2022-03-26 2022-03-26 Outpatient SFA SFA [id number] 022 Jaden 09:54:48 09:54:48 1108 F Kris 2022-03-26 2022-03-26 Outpatient [id number] 00:00:00 00:00:00 Visit 769f-402a 69f-402a-b -o534-5l9 [id number] 2022-02-25 2022-02-25 Outpatient SFA SFA [id number] 022 Jaden 11:04:30 11:04:30 1010 F Kris 2022-02-25 2022-02-25 Outpatient [id number] 00:00:00 00:00:00 Visit [id number] 148-42f6-b -m24h-s82 [id number] [id number] 2ba4e2 2021-11-30 2021-11-30 Outpatient [id number]- [id number] 00:00:00 00:00:00 Visit fef1-4fc2 ef1-4fc2-a -l01e-tp1 66d-ab55ff 0kdj57xbs e05aeb 2021-11-27 2021-11-27 Outpatient [place] [address] [facility] 04:42:00 04:42:00 [place] 0712 da [facility] h Program Results Test Description Test Time Test Comments Results Result Comments Source COMPREHENSIVE METABOLIC PANEL 2022-08-21 06:45:40 Test Item Value Reference Range Interpretation Comme nts GLUCOSE (test code = 2217) 185 MG/DL 70-99 H BUN (test code = 2208) 10 MG/DL 8-23 CREATININE (test code = 0.55 MG/DL 0.60-1.30 L 2213) eGFR (2020 CKD-EPI) (test 101 ML/MIN/1.73 >60 code = 73784) CALC BUN/CREAT (test code = 18 RATIO 6-28 2234) SODIUM (test code = 2231) 134 MEQ/L 133-146 POTASSIUM (test code = 3.5 MEQ/L 3.5-5.4 2227) CHLORIDE (test code = 2215) 94 MEQ/L 95-107 L CARBON DIOXIDE (test code = 23 MEQ/L -2205) CALCIUM (test code = 220) 10.0 MG/DL 8.5-10.5 PROTEIN, TOTAL (test code = 7.2 G/DL 6.1-8.3 2228) ALBUMIN (test code = 220) 4.8 G/DL 3.5-5.2 CALC GLOBULIN (test code = 2.4 G/DL 1.9-3.7 2239) CALC A/G RATIO (test code = 2.0 RATIO 1.0-2.6 2233) BILIRUBIN, TOTAL (test code 0.2 MG/DL See_Comment [Automated message] The = 2206) system which ge nerated this result transmit siomara reference range: <=1.2. T he reference range was not u sed to interpret this result as normal/abnormal . ALKALINE PHOSPHATASE (test 101 U/L 40-142 code = 2203) AST (test code = 2218) 15 U/L 9-40 ALT (test code = 2219) 17 U/L 5-40 [facility] has important pathology staff changes effective 07/17. New pathology s taff will provide uninter rupted, excellent patie nt care and clinical consul tation. See URL: [email or web address] UNLESS OTHE RWISE INDICATED, ALL TESTING PERFORMED AT [facility] [employer] [address] [place] [id number] LABORATOR Y DIRECTOR: JOEY SEYMOUR M.D. IA NUMBER [id number] CAP ACCREDITATION N O. [id number] LIPID [id number] 06:45:40 Test Item Value Reference Range Interpretation Comments CHOLESTEROL (test 219 MG/DL <200 H code = 2210) TRIGLYCERIDES (test 85 MG/DL <150 code = 2232) HDL CHOLESTEROL (test 78 MG/DL >39 code = 2220) CALC LDL CHOL (test 123 MG/DL <100 H NOTE: C ALCULATED LDL code = 2237) IS BASED ON ADRIAN-JESUS METHOD WHICHINCLUDES ADJUSTABLE TRIGLYCERIDE:VL DL CHOLESTEROL RAT IO.THIS FACTOR VARIES B Y MEASURED TRIGLY CERIDE AND NON-HDLCHOL ESTEROL CONCENTRATIONS WITH INCREASED CALCU LATED LDL SEENIN HIGH ER TRIGLYCERIDE OR LOWER NON-HDL SPECIME NS. FOR MOREINFORMATION , SEE CLIENT ANNOUNCE MENT AT [email or web address] [email or web address] RATIO LDL/HDL 1.58 RATIO <3.22 (test code = 2238) HEMOGLOBIN [id number] 03:45:25 Test Item Value Reference Range Interpretation Comments HEMOGLOBIN A1c (test 6.1 % 4.2-5.6 H AMERIC AN DIABETES code = 38421) ASSOCIATION [employer] FOR HGB A1C: PREDIABETES/INC REASED [...] LABORATORY C ONSULTATION. CBC W/AUTO DIFF WITH [id number] 02:39:50 Test Item Value Reference Range Interpretation [...] RBCS 0.00 K/UL 0.00-0.11 (test code = 67659) OCCULT BLD,FECAL,IMMUNOASSAY [id number] 15:52:05 Test Item Value Reference Range Interpretation Comments OCCULT BLD, FECAL NEGATIVE NEGATIVE CPL h as important (test code = 29590) patholog y staff changes effective 07/17. New patholo gy staff will provide uninterrupted, excellent patient care an d clinical consul tation. See URL: [email or web address]. UNLESS OTHERWISE INDICATED, ALL TESTING PERFORMED AT [facility] [address] [place] [address] CLIA : [id number], CAP : [id number] TSH, THIRD [id number] 06:49:25 Test Item Value Reference Range Interpretation Comments TSH, THIRD GENERATION (test code 1.600 UIU/ML 0.400-4.100 = 2821) [id number] 06:45:12 Test Item Value Reference Range Interpretation Comments NT-proBNP <50 PG/ML SEE BELOW If NT-ProBNP i s less than 300 (test code = PG/ML, heart fa ilure is unlikely 95049) for allages. Age............ .....Heart Failure Likely <50 Years.......... .>=450 PG/ML 50-75 Years.... .....>=900 PG/ML > 75 Years..... .....>=1800 PG/ML Methodology: Ro chikis Kimani Electrochemilum inescense Immunoassay UNL ESS OTHERWISE INDICATED, ALL TESTING PERFORMED ATCLINICAL PATH [place], [facility]. [address] [place] [address] 4 DIETARY SERVICES MANAGER: Federico AWADBLANCHE OCHOA Jesus [id number] CAP ACCREDITATION N O. [id number] COMPREHENSIVE METABOLIC [id number] 04:56:47 Test Item Value Reference Range Interpretation Comments GLUCOSE (test code = 137 MG/DL 70-99 H 2216) BUN (test code = 12 MG/DL 8-23 2207) CREATININE (test 0.60 MG/DL 0.60-1.30 code = 2214) eGFR (2020 CKD-EPI) 99 ML/MIN/1.73 >60 (test code = 81546) CALC BUN/CREAT (test 20 RATIO 6-28 code = 2235) SODIUM (test code = 143 MEQ/L 850-406 8448) POTASSIUM (test code 4.3 MEQ/L 3.5-5.4 = 2227) CHLORIDE (test code 105 MEQ/L 95-107 = [...] MG/DL See_Comment [Automated message] (test code = 2207) The syste m which generated this result transmit siomara reference range : <=1.2. The refe rence range was not u sed to interpret th is result as normal/abnormal . ALKALINE PHOSPHATASE 128 U/L 40-142 (test code = 4) AST (test code = 15 U/L 2217) ALT (test code = 11 U/L 40 2218) LIPID [id number] 04:56:47 Test Item Value Reference Range Interpretation [...] MOREINFORMATION , SEE CLIENT ANNOUNCE MENT AT [email or web address] RISK RATIO LDL/HDL 2.59 RATIO <3.22 (test code = 2237) HEMOGLOBIN [id number] 04:00:46 Test Item Value Reference Range Interpretation Comments HEMOGLOBIN A1c (test code = 71568) 5.9 % 4.2-5.6 H CBC W/AUTO DIFF WITH [id number] 02:37:32 Test Item Value Reference Range Interpretation [...] RBCS 0.00 K/UL 0.00-0.11 (test code = 49182) HEMOGLOBIN [id number] 00:00:00 Test Item Value Reference Range Interpretation Comments HEMOGLOBIN A1c (test code = 05977) 5.9 % HEMOGLOBIN [id number] 00:00:00 Test Item Value Reference Range Interpretation Comments HEMOGLOBIN A1c (test code = 02497) 5.9 % HEMOGLOBIN [id number] 00:00:00 Test Item Value Reference Range Interpretation Comments HEMOGLOBIN A1c (test code = 96677) 5.9 % CBC W/AUTO [id number] 00:00:00 Test Item Value Reference Range Interpretation [...] NUCLEATED RBCS (test code = 0.00 K/UL 41611) CBC W/AUTO [id number] 00:00:00 Test Item Value Reference Range Interpretation [...] NUCLEATED RBCS (test code = 0.00 K/UL 91835) CBC W/AUTO [id number] 00:00:00 Test Item Value Reference Range Interpretation [...] NUCLEATED RBCS (test code = 0.00 K/UL 85280) COMPREHENSIVE METABOLIC [id number] 00:00:00 Test Item Value Reference Range Interpretation Comments GLUCOSE (test code = 2217) 137 MG/DL BUN (test code = 2208) 12 MG/DL CREATININE (test code = 2214) 0.60 MG/DL eGFR (2020 CKD-EPI) (test code 99 ML/MIN/1.73 = 86654) CALC BUN/CREAT (test code = 20 RATIO [...] code = 2219) 11 U/L COMPREHENSIVE METABOLIC [id number] 00:00:00 Test Item Value Reference Range Interpretation Comments GLUCOSE (test code = 2217) 137 MG/DL BUN (test code = 2208) 12 MG/DL CREATININE (test code = 2214) 0.60 MG/DL eGFR (2020 CKD-EPI) (test code 99 ML/MIN/1.73 = 62884) CALC BUN/CREAT (test code = 20 RATIO [...] (test code = 2219) 11 U/L LIPID [id number] 00:00:00 Test Item Value Reference Range Interpretation Comments CHOLESTEROL (test code = 2210) 236 MG/DL TRIGLYCERIDES (test code = 2232) 274 MG/DL HDL CHOLESTEROL (test code = 2220) 54 MG/DL CALC LDL CHOL (test code = 2237) 140 MG/DL RISK RATIO LDL/HDL (test code = 2.59 RATIO 2238) LIPID [id number] 00:00:00 Test Item Value Reference Range Interpretation Comments CHOLESTEROL (test code = 2210) 236 MG/DL TRIGLYCERIDES (test code = 2232) 274 MG/DL HDL CHOLESTEROL (test code = 2220) 54 MG/DL CALC LDL CHOL (test code = 2237) 140 MG/DL RISK RATIO LDL/HDL (test code = 2.59 RATIO 2238) TSH, THIRD [id number] 00:00:00 Test Item Value Reference Range Interpretation Comments TSH, THIRD GENERATION (test code 1.600 UIU/ML = 2821) TSH, THIRD [id number] 00:00:00 Test Item Value Reference Range Interpretation Comments TSH, THIRD GENERATION (test code 1.600 UIU/ML = 2821) TSH, THIRD [id number] 00:00:00 Test Item Value Reference Range Interpretation Comments TSH, THIRD GENERATION (test code 1.600 UIU/ML = 2821) [id number] 00:00:00 Test Item Value Reference Range Interpretation Comments NT-proBNP (test code = 29247) <50 PG/ML [id number] 00:00:00 Test Item Value Reference Range Interpretation Comments NT-proBNP (test code = 60359) <50 PG/ML [id number] 00:00:00 Test Item Value Reference Range Interpretation Comments NT-proBNP (test code = 13540) <50 PG/ML HEMOGLOBIN [id number] 00:00:00 Test Item Value Reference Range Interpretation Comments HEMOGLOBIN A1c (test code = 25963) 5.9 % HEMOGLOBIN [id number] 00:00:00 Test Item Value Reference Range Interpretation Comments HEMOGLOBIN A1c (test code = 78377) 5.9 % HEMOGLOBIN [id number] 00:00:00 Test Item Value Reference Range Interpretation Comments HEMOGLOBIN A1c (test code = 00404) 5.9 % CBC W/AUTO [id number] 00:00:00 Test Item Value Reference Range Interpretation [...] NUCLEATED RBCS (test code = 0.00 K/UL 45802) CBC W/AUTO [id number] 00:00:00 Test Item Value Reference Range Interpretation [...] NUCLEATED RBCS (test code = 0.00 K/UL 29470) CBC W/AUTO [id number] 00:00:00 Test Item Value Reference Range Interpretation [...] NUCLEATED RBCS (test code = 0.00 K/UL 50183) COMPREHENSIVE METABOLIC [id number] 00:00:00 Test Item Value Reference Range Interpretation Comments GLUCOSE (test code = 2217) 137 MG/DL BUN (test code = 2208) 12 MG/DL CREATININE (test code = 2214) 0.60 MG/DL eGFR (2020 CKD-EPI) (test code 99 ML/MIN/1.73 = 56230) CALC BUN/CREAT (test code = 20 RATIO [...] ALKALINE PHOSPHATASE (test 128 U/L code = 2203) AST (test code = 2218) 15 U/L ALT (test code = 2219) 11 U/L COMPREHENSIVE METABOLIC [id number] 00:00:00 Test Item Value Reference Range Interpretation Comments GLUCOSE (test code = 2217) 137 MG/DL BUN (test code = 2208) 12 MG/DL CREATININE (test code = 2214) 0.60 MG/DL eGFR (2020 CKD-EPI) (test code 99 ML/MIN/1.73 = 47934) CALC BUN/CREAT (test code = 20 RATIO [...] (test code = 2219) 11 U/L LIPID [id number] 00:00:00 Test Item Value Reference Range Interpretation Comments CHOLESTEROL (test code = 2210) 236 MG/DL TRIGLYCERIDES (test code = 2232) 274 MG/DL HDL CHOLESTEROL (test code = 2220) 54 MG/DL CALC LDL CHOL (test code = 2237) 140 MG/DL RISK RATIO LDL/HDL (test code = 2.59 RATIO 2238) LIPID [id number] 00:00:00 Test Item Value Reference Range Interpretation Comments CHOLESTEROL (test code = 2210) 236 MG/DL TRIGLYCERIDES (test code = 2232) 274 MG/DL HDL CHOLESTEROL (test code = 2220) 54 MG/DL CALC LDL CHOL (test code = 2237) 140 MG/DL RISK RATIO LDL/HDL (test code = 2.59 RATIO 2238) TSH, THIRD [id number] 00:00:00 Test Item Value Reference Range Interpretation Comments TSH, THIRD GENERATION (test code 1.600 UIU/ML = 2821) TSH, THIRD [id number] 00:00:00 Test Item Value Reference Range Interpretation Comments TSH, THIRD GENERATION (test code 1.600 UIU/ML = 2821) TSH, THIRD [id number] 00:00:00 Test Item Value Reference Range Interpretation Comments TSH, THIRD GENERATION (test code 1.600 UIU/ML = 2821) [id number] 00:00:00 Test Item Value Reference Range Interpretation Comments NT-proBNP (test code = 48867) <50 PG/ML [id number] 00:00:00 Test Item Value Reference Range Interpretation Comments NT-proBNP (test code = 83687) <50 PG/ML [id number] 00:00:00 Test Item Value Reference Range Interpretation Comments NT-proBNP (test code = 96825) <50 PG/ML HEMOGLOBIN [id number] 00:00:00 Test Item Value Reference Range Interpretation Comments HEMOGLOBIN A1c (test code = 41695) 5.9 % HEMOGLOBIN [id number] 00:00:00 Test Item Value Reference Range Interpretation Comments HEMOGLOBIN A1c (test code = 53377) 5.9 % HEMOGLOBIN [id number] 00:00:00 Test Item Value Reference Range Interpretation Comments HEMOGLOBIN A1c (test code = 70890) 5.9 % CBC W/AUTO [id number] 00:00:00 Test Item Value Reference Range Interpretation [...] NUCLEATED RBCS (test code = 0.00 K/UL 77067) CBC W/AUTO [id number] 00:00:00 Test Item Value Reference Range Interpretation [...] NUCLEATED RBCS (test code = 0.00 K/UL 03559) CBC W/AUTO [id number] 00:00:00 Test Item Value Reference Range Interpretation [...] NUCLEATED RBCS (test code = 0.00 K/UL 61041) COMPREHENSIVE METABOLIC [id number] 00:00:00 Test Item Value Reference Range Interpretation Comments GLUCOSE (test code = 2217) 137 MG/DL BUN (test code = 2208) 12 MG/DL CREATININE (test code = 2214) 0.60 MG/DL eGFR (2020 CKD-EPI) (test code 99 ML/MIN/1.73 = 09437) CALC BUN/CREAT (test code = 20 RATIO [...] CALC GLOBULIN (test code = 2.3 G/DL 224) CALC A/G RATIO (test code = 2.0 RATIO 2234) BILIRUBIN, TOTAL (test code = 0.2 MG/DL 2206) ALKALINE PHOSPHATASE (test 128 U/L code = 2204) AST (test code = 2218) 15 U/L ALT (test code = 2219) 11 U/L COMPREHENSIVE METABOLIC [id number] 00:00:00 Test Item Value Reference Range Interpretation Comments GLUCOSE (test code = 2217) 137 MG/DL BUN (test code = 2208) 12 MG/DL CREATININE (test code = 2214) 0.60 MG/DL eGFR (2020 CKD-EPI) (test code 99 ML/MIN/1.73 = 71772) CALC BUN/CREAT (test code = 20 RATIO 2235) SODIUM (test code = 2231) 143 MEQ/L POTASSIUM (test code = 2228) 4.3 MEQ/L CHLORIDE (test code = 2215) 105 MEQ/L CARBON DIOXIDE (test code = 25 MEQ/L 220) CALCIUM (test code = 2209) 9.6 MG/DL PROTEIN, TOTAL (test code = 6.8 G/DL 222) ALBUMIN (test code = 2201) 4.5 G/DL CALC GLOBULIN (test code = 2.3 G/DL 2240) CALC A/G RATIO (test code = 2.0 RATIO 2234) BILIRUBIN, TOTAL (test code = 0.2 MG/DL 2206) ALKALINE PHOSPHATASE (test 128 U/L code = 2204) AST (test code = 2218) 15 U/L ALT (test code = 2219) 11 U/L LIPID [id number] 00:00:00 Test Item Value Reference Range Interpretation Comments CHOLESTEROL (test code = 2210) 236 MG/DL TRIGLYCERIDES (test code = 2232) 274 MG/DL HDL CHOLESTEROL (test code = 2220) 54 MG/DL CALC LDL CHOL (test code = 2237) 140 MG/DL RISK RATIO LDL/HDL (test code = 2.59 RATIO 2238) LIPID [id number] 00:00:00 Test Item Value Reference Range Interpretation Comments CHOLESTEROL (test code = 2210) 236 MG/DL TRIGLYCERIDES (test code = 2232) 274 MG/DL HDL CHOLESTEROL (test code = 2220) 54 MG/DL CALC LDL CHOL (test code = 2237) 140 MG/DL RISK RATIO LDL/HDL (test code = 2.59 RATIO 2238) TSH, THIRD [id number] 00:00:00 Test Item Value Reference Range Interpretation Comments TSH, THIRD GENERATION (test code 1.600 UIU/ML = 2821) TSH, THIRD [id number] 00:00:00 Test Item Value Reference Range Interpretation Comments TSH, THIRD GENERATION (test code 1.600 UIU/ML = 2821) TSH, THIRD [id number] 00:00:00 Test Item Value Reference Range Interpretation Comments TSH, THIRD GENERATION (test code 1.600 UIU/ML = 2821) [id number] 00:00:00 Test Item Value Reference Range Interpretation Comments NT-proBNP (test code = 41168) <50 PG/ML [id number] 00:00:00 Test Item Value Reference Range Interpretation Comments NT-proBNP (test code = 91749) <50 PG/ML [id number] 00:00:00 Test Item Value Reference Range Interpretation Comments NT-proBNP (test code = 84577) <50 PG/ML HEMOGLOBIN [id number] 00:00:00 Test Item Value Reference Range Interpretation Comments HEMOGLOBIN A1c (test code = 33036) 5.9 % HEMOGLOBIN [id number] 00:00:00 Test Item Value Reference Range Interpretation Comments HEMOGLOBIN A1c (test code = 15762) 5.9 % HEMOGLOBIN [id number] 00:00:00 Test Item Value Reference Range Interpretation Comments HEMOGLOBIN A1c (test code = 50169) 5.9 % CBC W/AUTO [id number] 00:00:00 Test Item Value Reference Range Interpretation [...] NUCLEATED RBCS (test code = 0.00 K/UL 09450) CBC W/AUTO [id number] 00:00:00 Test Item Value Reference Range Interpretation [...] NUCLEATED RBCS (test code = 0.00 K/UL 82239) CBC W/AUTO [id number] 00:00:00 Test Item Value Reference Range Interpretation [...] NUCLEATED RBCS (test code = 0.00 K/UL 69781) COMPREHENSIVE METABOLIC [id number] 00:00:00 Test Item Value Reference Range Interpretation Comments GLUCOSE (test code = 2217) 137 MG/DL BUN (test code = 2208) 12 MG/DL CREATININE (test code = 2214) 0.60 MG/DL eGFR (2020 CKD-EPI) (test code 99 ML/MIN/1.73 = 66330) CALC BUN/CREAT (test code = 20 RATIO [...] code = 2219) 11 U/L COMPREHENSIVE METABOLIC [id number] 00:00:00 Test Item Value Reference Range Interpretation Comments GLUCOSE (test code = 2217) 137 MG/DL BUN (test code = 2208) 12 MG/DL CREATININE (test code = 2214) 0.60 MG/DL eGFR (2020 CKD-EPI) (test code 99 ML/MIN/1.73 = 10846) CALC BUN/CREAT (test code = 20 RATIO 2235) SODIUM (test code = 2231) 143 MEQ/L POTASSIUM (test code = 2228) 4.3 MEQ/L CHLORIDE (test code = 2215) 105 MEQ/L CARBON DIOXIDE (test code = 25 MEQ/L 2206) CALCIUM (test code = 2209) 9.6 MG/DL [...] (test code = 2219) 11 U/L LIPID [id number] 00:00:00 Test Item Value Reference Range Interpretation Comments CHOLESTEROL (test code = 2210) 236 MG/DL TRIGLYCERIDES (test code = 2232) 274 MG/DL HDL CHOLESTEROL (test code = 2220) 54 MG/DL CALC LDL CHOL (test code = 2237) 140 MG/DL RISK RATIO LDL/HDL (test code = 2.59 RATIO 2238) LIPID [id number] 00:00:00 Test Item Value Reference Range Interpretation Comments CHOLESTEROL (test code = 2210) 236 MG/DL TRIGLYCERIDES (test code = 2232) 274 MG/DL HDL CHOLESTEROL (test code = 2220) 54 MG/DL CALC LDL CHOL (test code = 2237) 140 MG/DL RISK RATIO LDL/HDL (test code = 2.59 RATIO 2238) TSH, THIRD [id number] 00:00:00 Test Item Value Reference Range Interpretation Comments TSH, THIRD GENERATION (test code 1.600 UIU/ML = 2821) TSH, THIRD [id number] 00:00:00 Test Item Value Reference Range Interpretation Comments TSH, THIRD GENERATION (test code 1.600 UIU/ML = 2821) TSH, THIRD [id number] 00:00:00 Test Item Value Reference Range Interpretation Comments TSH, THIRD GENERATION (test code 1.600 UIU/ML = 2821) [id number] 00:00:00 Test Item Value Reference Range Interpretation Comments NT-proBNP (test code = 73166) <50 PG/ML [id number] 00:00:00 Test Item Value Reference Range Interpretation Comments NT-proBNP (test code = 36814) <50 PG/ML [id number] 00:00:00 Test Item Value Reference Range Interpretation Comments NT-proBNP (test code = 59564) <50 PG/ML LIPID [id number] 00:00:00 Test Item Value Reference Range Interpretation Comments CHOLESTEROL (test code = 2210) 252 MG/DL TRIGLYCERIDES (test code = 2232) 171 MG/DL HDL CHOLESTEROL (test code = 2220) 61 MG/DL CALC LDL CHOL (test code = 2237) 159 MG/DL RISK RATIO LDL/HDL (test code = 2.61 RATIO 2238) LIPID [id number] 00:00:00 Test Item Value Reference Range Interpretation Comments CHOLESTEROL (test code = 2210) 252 MG/DL TRIGLYCERIDES (test code = 2232) 171 MG/DL HDL CHOLESTEROL (test code = 2220) 61 MG/DL CALC LDL CHOL (test code = 2237) 159 MG/DL RISK RATIO LDL/HDL (test code = 2.61 RATIO 2238) CBC W/AUTO [id number] 00:00:00 Test Item Value Reference Range Interpretation [...] NUCLEATED RBCS (test code = 0.00 K/UL 09934) CBC W/AUTO [id number] 00:00:00 Test Item Value Reference Range Interpretation [...] NUCLEATED RBCS (test code = 0.00 K/UL 80886) CBC W/AUTO [id number] 00:00:00 Test Item Value Reference Range Interpretation [...] NUCLEATED RBCS (test code = 0.00 K/UL 72555) COMPREHENSIVE METABOLIC [id number] 00:00:00 Test Item Value Reference Range Interpretation Comments GLUCOSE (test code = 2217) 106 MG/DL BUN (test code = 2208) 7 MG/DL CREATININE (test code = 2214) 0.57 MG/DL eGFR AMER. (test code 113 ML/MIN/1.73 = 97473) eGFR NON- AMER. (test 97 ML/MIN/1.73 code = 79469) CALC BUN/CREAT (test code = 12 RATIO [...] BILIRUBIN, TOTAL (test code = 0.2 MG/DL 220) ALKALINE PHOSPHATASE (test 102 U/L code = 2204) AST (test code = 2218) 14 U/L ALT (test code = 2219) 12 U/L COMPREHENSIVE METABOLIC [id number] 00:00:00 Test Item Value Reference Range Interpretation Comments GLUCOSE (test code = 2217) 106 MG/DL BUN (test code = 2208) 7 MG/DL CREATININE (test code = 2214) 0.57 MG/DL eGFR AMER. (test code 113 ML/MIN/1.73 = 28429) eGFR NON- AMER. (test 97 ML/MIN/1.73 code = 90387) CALC BUN/CREAT (test code = 12 RATIO 2235) SODIUM (test code = 2231) 141 MEQ/L POTASSIUM (test code = 2228) 4.0 MEQ/L CHLORIDE (test code = 2215) 101 MEQ/L CARBON DIOXIDE (test code = 24 MEQ/L 2205) CALCIUM (test code = 2209) 9.7 MG/DL PROTEIN, TOTAL (test code = 7.3 G/DL 222) ALBUMIN (test code = 2201) 4.8 G/DL CALC GLOBULIN (test code = 2.5 G/DL 2240) CALC A/G RATIO (test code = 1.9 RATIO 2234) BILIRUBIN, TOTAL (test code = 0.2 MG/DL 2206) ALKALINE PHOSPHATASE (test 102 U/L code = 2204) AST (test code = 2218) 14 U/L ALT (test code = 2219) 12 U/L [id number] 00:00:00 Test Item Value Reference Range Interpretation Comments TSH, THIRD GENERATION (test code 1.390 UIU/ML = 2821) [id number] 00:00:00 Test Item Value Reference Range Interpretation Comments TSH, THIRD GENERATION (test code 1.390 UIU/ML = 2821) [id number] 00:00:00 Test Item Value Reference Range Interpretation Comments TSH, THIRD GENERATION (test code 1.390 UIU/ML = 2821) HEMOGLOBIN A1c [ADDED]2021-04-05 00:00:00 Test Item Value Reference Range Interpretation Comments HEMOGLOBIN A1c (test code = 60892) 5.7 % HEMOGLOBIN A1c [ADDED]2021-04-05 00:00:00 Test Item Value Reference Range Interpretation Comments HEMOGLOBIN A1c (test code = 27896) 5.7 % HEMOGLOBIN A1c [ADDED]2021-04-05 00:00:00 Test Item Value Reference Range Interpretation Comments HEMOGLOBIN A1c (test code = 25032) 5.7 % LIPID [id number] 00:00:00 Test Item Value Reference Range Interpretation Comments CHOLESTEROL (test code = 2210) 252 MG/DL TRIGLYCERIDES (test code = 2232) 171 MG/DL HDL CHOLESTEROL (test code = 2220) 61 MG/DL CALC LDL CHOL (test code = 2237) 159 MG/DL RISK RATIO LDL/HDL (test code = 2.61 RATIO 2238) LIPID [id number] 00:00:00 Test Item Value Reference Range Interpretation Comments CHOLESTEROL (test code = 2210) 252 MG/DL TRIGLYCERIDES (test code = 2232) 171 MG/DL HDL CHOLESTEROL (test code = 2220) 61 MG/DL CALC LDL CHOL (test code = 2237) 159 MG/DL RISK RATIO LDL/HDL (test code = 2.61 RATIO 2238) CBC W/AUTO [id number] 00:00:00 Test Item Value Reference Range Interpretation [...] NUCLEATED RBCS (test code = 0.00 K/UL 48763) CBC W/AUTO [id number] 00:00:00 Test Item Value Reference Range Interpretation [...] NUCLEATED RBCS (test code = 0.00 K/UL 82154) CBC W/AUTO [id number] 00:00:00 Test Item Value Reference Range Interpretation [...] NUCLEATED RBCS (test code = 0.00 K/UL 34894) COMPREHENSIVE METABOLIC [id number] 00:00:00 Test Item Value Reference Range Interpretation Comments GLUCOSE (test code = 2217) 106 MG/DL BUN (test code = 2208) 7 MG/DL CREATININE (test code = 2214) 0.57 MG/DL eGFR AMER. (test code 113 ML/MIN/1.73 = 58670) eGFR NON- AMER. (test 97 ML/MIN/1.73 code = 57930) CALC BUN/CREAT (test code = 12 RATIO [...] code = 2219) 12 U/L COMPREHENSIVE METABOLIC [id number] 00:00:00 Test Item Value Reference Range Interpretation Comments GLUCOSE (test code = 2217) 106 MG/DL BUN (test code = 2208) 7 MG/DL CREATININE (test code = 2214) 0.57 MG/DL eGFR AMER. (test code 113 ML/MIN/1.73 = 91163) eGFR NON- AMER. (test 97 ML/MIN/1.73 code = 23091) CALC BUN/CREAT (test code = 12 RATIO 2235) SODIUM (test code = 2231) 141 MEQ/L POTASSIUM (test code = 2228) 4.0 MEQ/L CHLORIDE (test code = 2215) 101 MEQ/L CARBON DIOXIDE (test code = 24 MEQ/L 2205) CALCIUM (test code = 2209) 9.7 MG/DL PROTEIN, TOTAL (test code = 7.3 G/DL 2228) ALBUMIN (test code = 2201) 4.8 G/DL CALC GLOBULIN (test code = 2.5 G/DL 2239) CALC A/G RATIO (test code = 1.9 RATIO 4) BILIRUBIN, TOTAL (test code = 0.2 MG/DL 2206) ALKALINE PHOSPHATASE (test 102 U/L code = 2204) AST (test code = 2218) 14 U/L ALT (test code = 2219) 12 U/L [id number] 00:00:00 Test Item Value Reference Range Interpretation Comments TSH, THIRD GENERATION (test code 1.390 UIU/ML = 2821) [id number] 00:00:00 Test Item Value Reference Range Interpretation Comments TSH, THIRD GENERATION (test code 1.390 UIU/ML = 2821) [id number] 00:00:00 Test Item Value Reference Range Interpretation Comments TSH, THIRD GENERATION (test code 1.390 UIU/ML = 2821) HEMOGLOBIN A1c [ADDED]2021-04-05 00:00:00 Test Item Value Reference Range Interpretation Comments HEMOGLOBIN A1c (test code = 97719) 5.7 % HEMOGLOBIN A1c [ADDED]2021-04-05 00:00:00 Test Item Value Reference Range Interpretation Comments HEMOGLOBIN A1c (test code = 07436) 5.7 % HEMOGLOBIN A1c [ADDED]2021-04-05 00:00:00 Test Item Value Reference Range Interpretation Comments HEMOGLOBIN A1c (test code = 96757) 5.7 % LIPID [id number] 00:00:00 Test Item Value Reference Range Interpretation Comments CHOLESTEROL (test code = 2210) 252 MG/DL TRIGLYCERIDES (test code = 2232) 171 MG/DL HDL CHOLESTEROL (test code = 2220) 61 MG/DL CALC LDL CHOL (test code = 2237) 159 MG/DL RISK RATIO LDL/HDL (test code = 2.61 RATIO 2238) LIPID [id number] 00:00:00 Test Item Value Reference Range Interpretation Comments CHOLESTEROL (test code = 2210) 252 MG/DL TRIGLYCERIDES (test code = 2232) 171 MG/DL HDL CHOLESTEROL (test code = 2220) 61 MG/DL CALC LDL CHOL (test code = 2237) 159 MG/DL RISK RATIO LDL/HDL (test code = 2.61 RATIO 2238) CBC W/AUTO [id number] 00:00:00 Test Item Value Reference Range Interpretation [...] NUCLEATED RBCS (test code = 0.00 K/UL 39253) CBC W/AUTO [id number] 00:00:00 Test Item Value Reference Range Interpretation [...] NUCLEATED RBCS (test code = 0.00 K/UL 59364) CBC W/AUTO [id number] 00:00:00 Test Item Value Reference Range Interpretation [...] NUCLEATED RBCS (test code = 0.00 K/UL 72600) COMPREHENSIVE METABOLIC [id number] 00:00:00 Test Item Value Reference Range Interpretation Comments GLUCOSE (test code = 2217) 106 MG/DL BUN (test code = 2208) 7 MG/DL CREATININE (test code = 2214) 0.57 MG/DL eGFR AMER. (test code 113 ML/MIN/1.73 = 14048) eGFR NON- AMER. (test 97 ML/MIN/1.73 code = 28596) CALC BUN/CREAT (test code = 12 RATIO 2235) SODIUM (test code = 2231) 141 MEQ/L POTASSIUM (test code = 2228) 4.0 MEQ/L CHLORIDE (test code = 2215) 101 MEQ/L CARBON DIOXIDE (test code = 24 MEQ/L 2206) CALCIUM (test code = 2209) 9.7 MG/DL PROTEIN, TOTAL (test code = 7.3 G/DL 222) ALBUMIN (test code = 2201) 4.8 G/DL CALC GLOBULIN (test code = 2.5 G/DL 2240) CALC A/G RATIO (test code = 1.9 RATIO 2234) BILIRUBIN, TOTAL (test code = 0.2 MG/DL 2207) ALKALINE PHOSPHATASE (test 102 U/L code = 2204) AST (test code = 2218) 14 U/L ALT (test code = 2219) 12 U/L COMPREHENSIVE METABOLIC [id number] 00:00:00 Test Item Value Reference Range Interpretation Comments GLUCOSE (test code = 2217) 106 MG/DL BUN (test code = 2208) 7 MG/DL CREATININE (test code = 2214) 0.57 MG/DL eGFR AMER. (test code 113 ML/MIN/1.73 = 34193) eGFR NON- AMER. (test 97 ML/MIN/1.73 code = 11882) CALC BUN/CREAT (test code = 12 RATIO 2235) SODIUM (test code = 2231) 141 MEQ/L POTASSIUM (test code = 2228) 4.0 MEQ/L CHLORIDE (test code = 2215) 101 MEQ/L CARBON DIOXIDE (test code = 24 MEQ/L 2205) CALCIUM (test code = 2209) 9.7 MG/DL PROTEIN, TOTAL (test code = 7.3 G/DL 2228) ALBUMIN (test code = 2201) 4.8 G/DL CALC GLOBULIN (test code = 2.5 G/DL 2239) CALC A/G RATIO (test code = 1.9 RATIO 2233) BILIRUBIN, TOTAL (test code = 0.2 MG/DL 2206) ALKALINE PHOSPHATASE (test 102 U/L code = 2204) AST (test code = 2218) 14 U/L ALT (test code = 2219) 12 U/L [id number] 00:00:00 Test Item Value Reference Range Interpretation Comments TSH, THIRD GENERATION (test code 1.390 UIU/ML = 2821) [id number] 00:00:00 Test Item Value Reference Range Interpretation Comments TSH, THIRD GENERATION (test code 1.390 UIU/ML = 2821) [id number] 00:00:00 Test Item Value Reference Range Interpretation Comments TSH, THIRD GENERATION (test code 1.390 UIU/ML = 2821) HEMOGLOBIN A1c [ADDED]2021-04-05 00:00:00 Test Item Value Reference Range Interpretation Comments HEMOGLOBIN A1c (test code = 68823) 5.7 % HEMOGLOBIN A1c [ADDED]2021-04-05 00:00:00 Test Item Value Reference Range Interpretation Comments HEMOGLOBIN A1c (test code = 64060) 5.7 % HEMOGLOBIN A1c [ADDED]2021-04-05 00:00:00 Test Item Value Reference Range Interpretation Comments HEMOGLOBIN A1c (test code = 31907) 5.7 % LIPID [id number] 00:00:00 Test Item Value Reference Range Interpretation Comments CHOLESTEROL (test code = 2210) 252 MG/DL TRIGLYCERIDES (test code = 2232) 171 MG/DL HDL CHOLESTEROL (test code = 2220) 61 MG/DL CALC LDL CHOL (test code = 2237) 159 MG/DL RISK RATIO LDL/HDL (test code = 2.61 RATIO 2238) LIPID [id number] 00:00:00 Test Item Value Reference Range Interpretation Comments CHOLESTEROL (test code = 2210) 252 MG/DL TRIGLYCERIDES (test code = 2232) 171 MG/DL HDL CHOLESTEROL (test code = 2220) 61 MG/DL CALC LDL CHOL (test code = 2237) 159 MG/DL RISK RATIO LDL/HDL (test code = 2.61 RATIO 2238) CBC W/AUTO [id number] 00:00:00 Test Item Value Reference Range Interpretation [...] NUCLEATED RBCS (test code = 0.00 K/UL 20752) CBC W/AUTO [id number] 00:00:00 Test Item Value Reference Range Interpretation [...] NUCLEATED RBCS (test code = 0.00 K/UL 78619) CBC W/AUTO [id number] 00:00:00 Test Item Value Reference Range Interpretation [...] NUCLEATED RBCS (test code = 0.00 K/UL 85045) COMPREHENSIVE METABOLIC [id number] 00:00:00 Test Item Value Reference Range Interpretation Comments GLUCOSE (test code = 2217) 106 MG/DL BUN (test code = 2208) 7 MG/DL CREATININE (test code = 2214) 0.57 MG/DL eGFR AMER. (test code 113 ML/MIN/1.73 = 36735) eGFR NON- AMER. (test 97 ML/MIN/1.73 code = 22292) CALC BUN/CREAT (test code = 12 RATIO 2235) SODIUM (test code = 2231) 141 MEQ/L POTASSIUM (test code = 2228) 4.0 MEQ/L CHLORIDE (test code = 2215) 101 MEQ/L CARBON DIOXIDE (test code = 24 MEQ/L 2206) CALCIUM (test code = 2209) 9.7 MG/DL PROTEIN, TOTAL (test code = 7.3 G/DL 222) ALBUMIN (test code = 2201) 4.8 G/DL CALC GLOBULIN (test code = 2.5 G/DL 2240) CALC A/G RATIO (test code = 1.9 RATIO 2234) BILIRUBIN, TOTAL (test code = 0.2 MG/DL 220) ALKALINE PHOSPHATASE (test 102 U/L code = 2204) AST (test code = 2218) 14 U/L ALT (test code = 2219) 12 U/L COMPREHENSIVE METABOLIC [id number] 00:00:00 Test Item Value Reference Range Interpretation Comments GLUCOSE (test code = 2217) 106 MG/DL BUN (test code = 2208) 7 MG/DL CREATININE (test code = 2214) 0.57 MG/DL eGFR AMER. (test code 113 ML/MIN/1.73 = 70403) eGFR NON- AMER. (test 97 ML/MIN/1.73 code = 32534) CALC BUN/CREAT (test code = 12 RATIO 2235) SODIUM (test code = 2231) 141 MEQ/L POTASSIUM (test code = 2228) 4.0 MEQ/L CHLORIDE (test code = 2215) 101 MEQ/L CARBON DIOXIDE (test code = 24 MEQ/L 2205) CALCIUM (test code = 2209) 9.7 MG/DL PROTEIN, TOTAL (test code = 7.3 G/DL 2228) ALBUMIN (test code = 2201) 4.8 G/DL CALC GLOBULIN (test code = 2.5 G/DL 2239) CALC A/G RATIO (test code = 1.9 RATIO 2233) BILIRUBIN, TOTAL (test code = 0.2 MG/DL 2206) ALKALINE PHOSPHATASE (test 102 U/L code = 2204) AST (test code = 2218) 14 U/L ALT (test code = 2219) 12 U/L [id number] 00:00:00 Test Item Value Reference Range Interpretation Comments TSH, THIRD GENERATION (test code 1.390 UIU/ML = 2821) [id number] 00:00:00 Test Item Value Reference Range Interpretation Comments TSH, THIRD GENERATION (test code 1.390 UIU/ML = 2821) [id number] 00:00:00 Test Item Value Reference Range Interpretation Comments TSH, THIRD GENERATION (test code 1.390 UIU/ML = 2821) HEMOGLOBIN A1c [ADDED]2021-04-05 00:00:00 Test Item Value Reference Range Interpretation Comments HEMOGLOBIN A1c (test code = 90908) 5.7 % HEMOGLOBIN A1c [ADDED]2021-04-05 00:00:00 Test Item Value Reference Range Interpretation Comments HEMOGLOBIN A1c (test code = 83671) 5.7 % HEMOGLOBIN A1c [ADDED]2021-04-05 00:00:00 Test Item Value Reference Range Interpretation Comments HEMOGLOBIN A1c (test code = 18647) 5.7 % CBC W/AUTO [id number] 00:00:00 Test Item Value Reference Range Interpretation [...] code = 1015) 249 K/UL CBC W/AUTO [id number] 00:00:00 Test Item Value Reference Range Interpretation [...] code = 1015) 249 K/UL CBC W/AUTO [id number] 00:00:00 Test Item Value Reference Range Interpretation [...] (test code = 1015) 249 K/UL HEMOGLOBIN [id number] 00:00:00 Test Item Value Reference Range Interpretation Comments HEMOGLOBIN A1c (test code = 84397) 5.7 % HEMOGLOBIN [id number] 00:00:00 Test Item Value Reference Range Interpretation Comments HEMOGLOBIN A1c (test code = 46170) 5.7 % HEMOGLOBIN [id number] 00:00:00 Test Item Value Reference Range Interpretation Comments HEMOGLOBIN A1c (test code = 33222) 5.7 % LIPID [id number] 00:00:00 Test Item Value Reference Range Interpretation Comments CHOLESTEROL (test code = 2210) 166 MG/DL TRIGLYCERIDES (test code = 2232) 209 MG/DL HDL CHOLESTEROL (test code = 2220) 47 MG/DL CALC LDL CHOL (test code = 2237) 89 MG/DL RISK RATIO LDL/HDL (test code = 1.89 RATIO 2238) LIPID [id number] 00:00:00 Test Item Value Reference Range Interpretation Comments CHOLESTEROL (test code = 2210) 166 MG/DL TRIGLYCERIDES (test code = 2232) 209 MG/DL HDL CHOLESTEROL (test code = 2220) 47 MG/DL CALC LDL CHOL (test code = 2237) 89 MG/DL RISK RATIO LDL/HDL (test code = 1.89 RATIO 2238) COMPREHENSIVE METABOLIC [id number] 00:00:00 Test Item Value Reference Range Interpretation Comments GLUCOSE (test code = 2217) 106 MG/DL BUN (test code = 2208) 10 MG/DL CREATININE (test code = 2214) 0.64 MG/DL eGFR AMER. (test code 110 ML/MIN/1.73 = 97338) eGFR NON- AMER. (test 95 ML/MIN/1.73 code = 04692) CALC BUN/CREAT (test code = 16 RATIO 2235) SODIUM (test code = 2231) 141 MEQ/L POTASSIUM (test code = 2228) 3.9 MEQ/L CHLORIDE (test code = 2215) 98 MEQ/L CARBON DIOXIDE (test code = 30 MEQ/L 220) CALCIUM (test code = 2209) 10.1 MG/DL PROTEIN, TOTAL (test code = 7.7 G/DL 222) ALBUMIN (test code = 2201) 5.2 G/DL CALC GLOBULIN (test code = 2.5 G/DL 2240) CALC A/G RATIO (test code = 2.1 RATIO 2234) BILIRUBIN, TOTAL (test code = 0.3 MG/DL 2206) ALKALINE PHOSPHATASE (test 111 U/L code = 2204) AST (test code = 2218) 16 U/L ALT (test code = 2219) 19 U/L COMPREHENSIVE METABOLIC [id number] 00:00:00 Test Item Value Reference Range Interpretation Comments GLUCOSE (test code = 2217) 106 MG/DL BUN (test code = 2208) 10 MG/DL CREATININE (test code = 2214) 0.64 MG/DL eGFR AMER. (test code 110 ML/MIN/1.73 = 24784) eGFR NON- AMER. (test 95 ML/MIN/1.73 code = 05314) CALC BUN/CREAT (test code = 16 RATIO [...] ALT (test code = 2219) 19 U/L [id number] 00:00:00 Test Item Value Reference Range Interpretation Comments TSH, THIRD GENERATION (test code 1.690 UIU/ML = 2821) [id number] 00:00:00 Test Item Value Reference Range Interpretation Comments TSH, THIRD GENERATION (test code 1.690 UIU/ML = 2821) [id number] 00:00:00 Test Item Value Reference Range Interpretation Comments TSH, THIRD GENERATION (test code 1.690 UIU/ML = 2821) CBC W/AUTO [id number] 00:00:00 Test Item Value Reference Range Interpretation [...] code = 1015) 249 K/UL CBC W/AUTO [id number] 00:00:00 Test Item Value Reference Range Interpretation [...] code = 1015) 249 K/UL CBC W/AUTO [id number] 00:00:00 Test Item Value Reference Range Interpretation [...] (test code = 1015) 249 K/UL HEMOGLOBIN [id number] 00:00:00 Test Item Value Reference Range Interpretation Comments HEMOGLOBIN A1c (test code = 20204) 5.7 % HEMOGLOBIN [id number] 00:00:00 Test Item Value Reference Range Interpretation Comments HEMOGLOBIN A1c (test code = 13802) 5.7 % HEMOGLOBIN [id number] 00:00:00 Test Item Value Reference Range Interpretation Comments HEMOGLOBIN A1c (test code = 70751) 5.7 % LIPID [id number] 00:00:00 Test Item Value Reference Range Interpretation Comments CHOLESTEROL (test code = 2210) 166 MG/DL TRIGLYCERIDES (test code = 2232) 209 MG/DL HDL CHOLESTEROL (test code = 2220) 47 MG/DL CALC LDL CHOL (test code = 2237) 89 MG/DL RISK RATIO LDL/HDL (test code = 1.89 RATIO 2238) LIPID [id number] 00:00:00 Test Item Value Reference Range Interpretation Comments CHOLESTEROL (test code = 2210) 166 MG/DL TRIGLYCERIDES (test code = 2232) 209 MG/DL HDL CHOLESTEROL (test code = 2220) 47 MG/DL CALC LDL CHOL (test code = 2237) 89 MG/DL RISK RATIO LDL/HDL (test code = 1.89 RATIO 2238) COMPREHENSIVE METABOLIC [id number] 00:00:00 Test Item Value Reference Range Interpretation Comments GLUCOSE (test code = 2217) 106 MG/DL BUN (test code = 2208) 10 MG/DL CREATININE (test code = 2214) 0.64 MG/DL eGFR AMER. (test code 110 ML/MIN/1.73 = 00696) eGFR NON- AMER. (test 95 ML/MIN/1.73 code = 46156) CALC BUN/CREAT (test code = 16 RATIO [...] code = 2219) 19 U/L COMPREHENSIVE METABOLIC [id number] 00:00:00 Test Item Value Reference Range Interpretation Comments GLUCOSE (test code = 2217) 106 MG/DL BUN (test code = 2208) 10 MG/DL CREATININE (test code = 2214) 0.64 MG/DL eGFR AMER. (test code 110 ML/MIN/1.73 = 10975) eGFR NON- AMER. (test 95 ML/MIN/1.73 code = 45455) CALC BUN/CREAT (test code = 16 RATIO [...] ALT (test code = 2219) 19 U/L [id number] 00:00:00 Test Item Value Reference Range Interpretation Comments TSH, THIRD GENERATION (test code 1.690 UIU/ML = 2821) [id number] 00:00:00 Test Item Value Reference Range Interpretation Comments TSH, THIRD GENERATION (test code 1.690 UIU/ML = 2821) [id number] 00:00:00 Test Item Value Reference Range Interpretation Comments TSH, THIRD GENERATION (test code 1.690 UIU/ML = 2821) CBC W/AUTO [id number] 00:00:00 Test Item Value Reference Range Interpretation [...] code = 1015) 249 K/UL CBC W/AUTO [id number] 00:00:00 Test Item Value Reference Range Interpretation [...] code = 1015) 249 K/UL CBC W/AUTO [id number] 00:00:00 Test Item Value Reference Range Interpretation [...] (test code = 1015) 249 K/UL HEMOGLOBIN [id number] 00:00:00 Test Item Value Reference Range Interpretation Comments HEMOGLOBIN A1c (test code = 73727) 5.7 % HEMOGLOBIN [id number] 00:00:00 Test Item Value Reference Range Interpretation Comments HEMOGLOBIN A1c (test code = 42942) 5.7 % HEMOGLOBIN [id number] 00:00:00 Test Item Value Reference Range Interpretation Comments HEMOGLOBIN A1c (test code = 89108) 5.7 % LIPID [id number] 00:00:00 Test Item Value Reference Range Interpretation Comments CHOLESTEROL (test code = 2210) 166 MG/DL TRIGLYCERIDES (test code = 2232) 209 MG/DL HDL CHOLESTEROL (test code = 2220) 47 MG/DL CALC LDL CHOL (test code = 2237) 89 MG/DL RISK RATIO LDL/HDL (test code = 1.89 RATIO 2238) LIPID [id number] 00:00:00 Test Item Value Reference Range Interpretation Comments CHOLESTEROL (test code = 2210) 166 MG/DL TRIGLYCERIDES (test code = 2232) 209 MG/DL HDL CHOLESTEROL (test code = 2220) 47 MG/DL CALC LDL CHOL (test code = 2237) 89 MG/DL RISK RATIO LDL/HDL (test code = 1.89 RATIO 2238) COMPREHENSIVE METABOLIC [id number] 00:00:00 Test Item Value Reference Range Interpretation Comments GLUCOSE (test code = 2217) 106 MG/DL BUN (test code = 2208) 10 MG/DL CREATININE (test code = 2214) 0.64 MG/DL eGFR AMER. (test code 110 ML/MIN/1.73 = 26714) eGFR NON- AMER. (test 95 ML/MIN/1.73 code = 18644) CALC BUN/CREAT (test code = 16 RATIO [...] code = 2219) 19 U/L COMPREHENSIVE METABOLIC [id number] 00:00:00 Test Item Value Reference Range Interpretation Comments GLUCOSE (test code = 2217) 106 MG/DL BUN (test code = 2208) 10 MG/DL CREATININE (test code = 2214) 0.64 MG/DL eGFR AMER. (test code 110 ML/MIN/1.73 = 65203) eGFR NON- AMER. (test 95 ML/MIN/1.73 code = 29088) CALC BUN/CREAT (test code = 16 RATIO [...] ALT (test code = 2219) 19 U/L [id number] 00:00:00 Test Item Value Reference Range Interpretation Comments TSH, THIRD GENERATION (test code 1.690 UIU/ML = 2821) [id number] 00:00:00 Test Item Value Reference Range Interpretation Comments TSH, THIRD GENERATION (test code 1.690 UIU/ML = 2821) [id number] 00:00:00 Test Item Value Reference Range Interpretation Comments TSH, THIRD GENERATION (test code 1.690 UIU/ML = 2821) CBC W/AUTO [id number] 00:00:00 Test Item Value Reference Range Interpretation [...] code = 1015) 249 K/UL CBC W/AUTO [id number] 00:00:00 Test Item Value Reference Range Interpretation [...] code = 1015) 249 K/UL CBC W/AUTO [id number] 00:00:00 Test Item Value Reference Range Interpretation [...] (test code = 1015) 249 K/UL HEMOGLOBIN [id number] 00:00:00 Test Item Value Reference Range Interpretation Comments HEMOGLOBIN A1c (test code = 25778) 5.7 % HEMOGLOBIN [id number] 00:00:00 Test Item Value Reference Range Interpretation Comments HEMOGLOBIN A1c (test code = 39840) 5.7 % HEMOGLOBIN [id number] 00:00:00 Test Item Value Reference Range Interpretation Comments HEMOGLOBIN A1c (test code = 22994) 5.7 % LIPID [id number] 00:00:00 Test Item Value Reference Range Interpretation Comments CHOLESTEROL (test code = 2210) 166 MG/DL TRIGLYCERIDES (test code = 2232) 209 MG/DL HDL CHOLESTEROL (test code = 2220) 47 MG/DL CALC LDL CHOL (test code = 2237) 89 MG/DL RISK RATIO LDL/HDL (test code = 1.89 RATIO 2238) LIPID [id number] 00:00:00 Test Item Value Reference Range Interpretation Comments CHOLESTEROL (test code = 2210) 166 MG/DL TRIGLYCERIDES (test code = 2232) 209 MG/DL HDL CHOLESTEROL (test code = 2220) 47 MG/DL CALC LDL CHOL (test code = 2237) 89 MG/DL RISK RATIO LDL/HDL (test code = 1.89 RATIO 2238) COMPREHENSIVE METABOLIC [id number] 00:00:00 Test Item Value Reference Range Interpretation Comments GLUCOSE (test code = 2217) 106 MG/DL BUN (test code = 2208) 10 MG/DL CREATININE (test code = 2214) 0.64 MG/DL eGFR AMER. (test code 110 ML/MIN/1.73 = 51668) eGFR NON- AMER. (test 95 ML/MIN/1.73 code = 86320) CALC BUN/CREAT (test code = 16 RATIO 2235) SODIUM (test code = 2231) 141 MEQ/L POTASSIUM (test code = 2228) 3.9 MEQ/L CHLORIDE (test code = 2215) 98 MEQ/L CARBON DIOXIDE (test code = 30 MEQ/L 2205) CALCIUM (test code = 2209) 10.1 MG/DL PROTEIN, TOTAL (test code = 7.7 G/DL 222) ALBUMIN (test code = 2201) 5.2 G/DL CALC GLOBULIN (test code = 2.5 G/DL 2240) CALC A/G RATIO (test code = 2.1 RATIO 2234) BILIRUBIN, TOTAL (test code = 0.3 MG/DL 2207) ALKALINE PHOSPHATASE (test 111 U/L code = 2204) AST (test code = 2218) 16 U/L ALT (test code = 2219) 19 U/L COMPREHENSIVE METABOLIC [id number] 00:00:00 Test Item Value Reference Range Interpretation Comments GLUCOSE (test code = 2217) 106 MG/DL BUN (test code = 2208) 10 MG/DL CREATININE (test code = 2214) 0.64 MG/DL eGFR AMER. (test code 110 ML/MIN/1.73 = 47420) eGFR NON- AMER. (test 95 ML/MIN/1.73 code = 69393) CALC BUN/CREAT (test code = 16 RATIO 2235) SODIUM (test code = 2231) 141 MEQ/L POTASSIUM (test code = 2228) 3.9 MEQ/L CHLORIDE (test code = 2215) 98 MEQ/L CARBON DIOXIDE (test code = 30 MEQ/L 2205) CALCIUM (test code = 220) 10.1 MG/DL PROTEIN, TOTAL (test code = 7.7 G/DL 2228) ALBUMIN (test code = 220) 5.2 G/DL CALC GLOBULIN (test code = 2.5 G/DL 2239) CALC A/G RATIO (test code = 2.1 RATIO 2233) BILIRUBIN, TOTAL (test code = 0.3 MG/DL 2206) ALKALINE PHOSPHATASE (test 111 U/L code = 2203) AST (test code = 2218) 16 U/L ALT (test code = 2219) 19 U/L [id number] 00:00:00 Test Item Value Reference Range Interpretation Comments TSH, THIRD GENERATION (test code 1.690 UIU/ML = 2821) [id number] 00:00:00 Test Item Value Reference Range Interpretation Comments TSH, THIRD GENERATION (test code 1.690 UIU/ML = 2821) [id number] 00:00:00 Test Item Value Reference Range Interpretation Comments TSH, THIRD GENERATION (test code 1.690 UIU/ML = 2821)
[2023-03-24] MEDS ORDERED: MORPHINE 4 MG/ML SYR ONE (12:22)
[2023-03-24] MEDS ORDERED: NA CHLORIDE 0.9% 500 ML ONE (12:22)
[2023-03-24] MEDS ORDERED: FAMOTIDINE 20 MG/2 ML VIAL IV ONE (12:22)
[2023-03-24] MEDS ORDERED: ONDANSETRON 4 MG/2 ML VIAL ONE ×2 (12:22→17:13)
[2023-03-24 12:27] LABS: Absolute Lymphocytes (CBC) 0.8 K/uL (0.7-4.9); Hematocrit 45.9 % (36.0-45.0); Lymphocytes % 8.5 % (15.3-44.8); MCV 92.9 fL (80-100); MPV 7.4 fL (7.6-11.3); Platelets 297 thou/uL (152-406); RBC Red Blood Cell Count 4.93 M/uL (3.86-4.86)
[2023-03-24 12:40] LABS: Bilirubin Total 0.6 mg/dL (0.2-1.0); Protein, Total 7.7 g/dL (6.4-8.2)
[2023-03-24 12:55] LABS: White Blood Cell Scan OK (OK)
[2023-03-24 12:56] LABS: Blood Morphology Comment NOT SEEN (NOT SEEN); Platelet Estimate ADEQ
[2023-03-24] MEDS ORDERED: PROMETHAZINE INJ 25 MG/ML AMP ONE ×2 (13:04→15:51)
--- NOTE | 2023-03-24 14:05 | RAD REPORT ---
EXAM DESCRIPTION: CT - Abdomen Pelvis Wo Contrast - 03/24/2023 1:11 pm CLINICAL HISTORY: LLQ;Abd pain COMPARISON: Abdomen Pelvis W Contrast dated 09/27/2022 TECHNIQUE: Thin cut axial CT imaging of the abdomen and pelvis was performed without IV contrast. Mu ltiplanar reformats were generated and reviewed. All CT scans are performed using dose optimization technique as appropriate and may include automated exposure control or mA/KV adjustment according to patient size. FINDINGS: No suspicious findings in the lung bases. The liver, spleen, and pancreas show no suspicious findings. Gallbladder was surgically removed. Bila teral adrenal thickening without nodules, nonspecific. Symmetric renal contour, without suspicious parenchymal findings within limits of noncontrast techniq ue. No evidence of radiopaque calculi or hydroureteronephrosis. No dilated bowel loops or bowel wall thickening. Postsurgical changes of small bowel resection in the lower abdomen again seen. No free air, free fluid or inflammatory stranding. No hernia, mass or bulk y lymphadenopathy. The urinary bladder is without significant finding. No suspicious bony findings. IMPRESSION: No acute intra-abdominal process.
--- NOTE | 2023-03-24 14:30 | EDPHYS ---
Physician Documentation [facility] Name: Delmi Pool Age: 68 yrs Sex: Female : 1955 Arrival Date: 03/24/2023 Time: 11:40 Bed 17 Private MD: ED Physician Fredrick Draper HPI: 03/24 14:22 This 68 yrs old Female presents to ER via EMS with complaints of Abdominal Pain, rn Nausea/Vomiting. 14:22 The patient presents to the emergency department with nausea, vomiting, abdominal pain. rn Onset: The symptoms/episode began/occurred yesterday. Possible causes: unknown. Possible causes:. The symptoms are aggravated by nothing. The symptoms are alleviated by food . Severity of symptoms: At their worst the symptoms were moderate in the emergency department the symptoms are unchanged. The patient has experienced a previous episode. The patient has been recently seen at the [facility] Emergency Department, The patient has been recently been admitted at [facility]. Patient reports 2 days of abdominal pain/nausea/vomiting. Cannot keep anything down. Generalized weakness. No fever but had chills earlier today with diaphoresis. No chest pain or shortness of breath. No blood in stool.. Historical: - Allergies: 12:40 tramadol; kc6 12:40 Toradol; kc6 - PMHx: 12:00 Hypertensive disorder; Hypercholesterolemia; neuropathy; rs5 - PSHx: 12:00 Appendectomy; section; Bowel Retracement; rs5 - Immunization history:: Adult Immunizations unknown. - Social history:: Smoking status: unknown. - Family history:: not pertinent. - Hospitalizations: : No recent hospitalization is reported. ROS: 14:23 Constitutional: Negative for fever, chills, and weight loss, Cardiovascular: Negative rn for chest pain, palpitations, and edema, Respiratory: Negative for shortness of breath, cough, wheezing, and pleuritic chest pain, Abdomen/GI: Positive for abdominal pain/nausea/vomiting Back: Negative for injury and pain, MS/Extremity: Negative for injury and deformity, Skin: Negative for injury, rash, and discoloration, Neuro: Positive for generalized weakness Exam: 14:23 Constitutional: This is a well developed, well nourished patient who is awake, alert, rn appears uncomfortable, actively vomiting Head/Face: Normocephalic, atraumatic. ENT: Dry mucous membranes Cardiovascular: Regular rate and rhythm. No pulse deficits. Respiratory: No increased work of breathing, no retractions or nasal flaring. Abdomen/GI: Soft, left lower quadrant tenderness without rebound or guarding Skin: Warm, dry MS/ Extremity: Pulses equal, no cyanosis. Neuro: Awake and alert, GCS 15 14:33 ECG was reviewed by the Attending Physician. rn Vital Signs: 11:50 BP 157 / 77; Pulse 87; Resp 18; Pulse Ox 99% on R/A; rs5 11:59 BP 157 / 77; Pulse 90; Resp 18 S; Pulse Ox 97% on R/A; kc6 12:01 Weight 67.13 kg (R); Height 5 ft. 0 in. (R); kc6 13:21 BP 137 / 71; Pulse 89; Resp 18; Pulse Ox 99% on R/A; rs5 12:01 Body Mass Index 28.90 (67.13 kg, 152.4 cm) kc6 MDM: 11:43 Patient medically screened. rn 14:23 Differential diagnosis: Nonspecific abd pain, diverticulitis, viral gastroenteritis, rn gastroenteritis. Data reviewed: vital signs, nurses notes, lab test result(s), radiologic studies, CT scan, and as a result, I will admit patient. Consideration of Admission/Observation Patient was admitted/placed on observation. Escalation of care including admission/observation considered. Management of patient was discussed with the following: Hospitalist: Will admit patient. Care significantly affected by the following chronic conditions: Hypertension. Counseling: I had a detailed discussion with the patient and/or guardian regarding the historical points, exam findings, and any diagnostic results supporting the discharge/admit diagnosis, lab results, radiology results, the need for further work-up and treatment in the hospital. Response to treatment: There is no appreciated change of the patient's symptoms at this time, Patient still not tolerating p.o., has had 4 doses of nausea medication thus far. No acute findings on imaging, still slightly hyponatremic. Patient still reports abdominal pain and vomiting. Will admit to hospitalist service., and as a result, I will admit patient. 03/24 12:05 Order name: CBC with Diff; Complete Time: 13:17 rn 03/24 12:05 Order name: CMP; Complete Time: 12:49 rn 03/24 12:05 Order name: Lipase; Complete Time: 12:49 rn 03/24 12:05 Order name: Urinalysis w/ reflexes rn 03/24 12:31 Order name: CBC Smear Scan; Complete Time: 13:17 EDMS 03/24 14:21 Order name: Flu rn 03/24 14:46 Order name: Basic Metabolic Panel EDMS 03/24 14:46 Order name: Basic Metabolic Panel EDMS 03/24 14:46 Order name: Magnesium EDMS 03/24 14:46 Order name: Magnesium EDMS 03/24 18:00 Order name: Glucose, Ancillary Testing EDMS 03/24 13:12 Order name: Abdomen ; Complete Time: 14:14 EDMS 03/24 12:05 Order name: IV Saline Lock; Complete Time: 12:06 rn 03/24 12:05 Order name: Labs collected and sent; Complete Time: 12:06 rn EC:33 Rate is 151 beats/min. Rhythm is irregular. Left axis deviation noted. QRS is positive rn in lead I and negative in lead aVF. QRS interval is normal. QT interval is normal. No Q waves. T waves are Normal. No ST changes noted. Clinical impression: Atrial Flutter. Interpreted by me. Reviewed by me. Administered Medications: 12:05 Drug: Ondansetron IVP 4 mg IVP once; over 2 minutes Route: IVP; Site: left antecubital; rs5 12:25 Follow up: Response: No adverse reaction; Nausea is decreased rs5 12:05 Drug: morphine IVP or IV 4 mg IVP once over 4 mins Route: IVP; Infused Over: 4 mins; rs5 Site: left antecubital; 12:25 Follow up: Response: No adverse reaction; Pain is decreased rs5 12:05 Drug: NS 0.9% IV 500 ml IV at bolus once Route: IV; Rate: bolus; Site: right upper arm; rs5 12:25 Follow up: Response: No adverse reaction rs5 12:20 Drug: Famotidine IVP 20 mg IVP once; dilute with 10 mL 0.9% NaCl; give over 2 minutes rs5 Route: IVP; Site: right upper arm; 12:40 Follow up: Response: No adverse reaction rs5 12:48 Drug: Promethazine IM 12.5 mg IM once Route: IM; Site: right deltoid; rs5 13:10 Follow up: Response: No adverse reaction; Nausea is decreased rs5 15:36 Drug: Promethazine IVP 12.5 mg IVP once Route: IVP; Site: right upper arm; rs5 Disposition Summary: 03/24/23 14:29 Hospitalization Ordered Notes: Hospitalization Status: Observation rn Provider: Jason Hernadez rn Location: Telemetry/MedSurg (observation) rn Condition: Stable rn Problem: new rn Symptoms: are unchanged rn Bed/Room Type: Standard rn Room Assignment: 212(03/24/23 16:53) bd Diagnosis - Lower abdominal pain, unspecified rn - Intractable vomiting rn Forms: - Medication Reconciliation Form rn - SBAR form rn - Leadership Thank You Letter rn Signatures: Dispatcher [employer] EDMS Rhona Argueta Roman, MD MD rn Campbell, Kaitlyn RN RN kc6 Candelario Villafana RN RN rs5 Flor Briscoe RN RN nj1 Corrections: (The following items were deleted from the chart) 12:40 12:00 Allergies: No Known Allergies; kc6 kc6 13:12 12:06 Abdomen Pelvis W Con+CT.RAD.BRZ ordered. EDMS EDMS 16:53 14:29 rn bd
--- NOTE | 2023-03-24 14:30 | ER ---
Nurse's Notes [facility] Name: Delmi Pool Age: 68 yrs Sex: Female : 1955 Arrival Date: 03/24/2023 Time: 11:40 Bed 17 Private MD: Diagnosis: Lower abdominal pain, unspecified;Intractable vomiting Presentation: 03/24 11:59 Chief complaint: Patient states: sudden onset abdominal pain with n/v. denies diarrhea. kc6 Coronavirus screen: At this time, the client does not indicate any symptoms associated with coronavirus-19. Ebola Screen: No symptoms or risks identified at this time. Initial Sepsis Screen: Does the patient meet any 2 criteria? No. Patient's initial sepsis screen is negative. Does the patient have a suspected source of infection? No. Patient's initial sepsis screen is negative. Risk Assessment: Do you want to hurt yourself or someone else? Patient reports no desire to harm self or others. Onset of symptoms was March 24, 2023. 11:59 Method Of Arrival: EMS: [facility] 11:59 Acuity: GILBERTO 3 kc6 Historical: - Allergies: 12:40 tramadol; kc6 12:40 Toradol; kc6 - PMHx: 12:00 Hypertensive disorder; Hypercholesterolemia; neuropathy; rs5 - PSHx: 12:00 Appendectomy; section; Bowel Retracement; rs5 - Immunization history:: Adult Immunizations unknown. - Social history:: Smoking status: unknown. - Family history:: not pertinent. - Hospitalizations: : No recent hospitalization is reported. Screenin:58 [facility] ED Fall Risk Assessment (Adult) History of falling in the last 3 months, kc6 including since admission No falls in past 3 months (0 pts) Confusion or Disorientation No (0 pts) Intoxicated or Sedated No (0 pts) Impaired Gait No (0 pts) Mobility Assist Device Used No (0 pt) Altered Elimination No (0 pt) Score/Fall Risk Level 0 - 2 = Low Risk. Abuse screen: Denies threats or abuse. Denies injuries from another. Nutritional screening: No deficits noted. Tuberculosis screening: No symptoms or risk factors identified. Assessment: 11:43 General: Appears distressed, uncomfortable, Behavior is cooperative, agitated. Pain: rs5 Pain: Complains of pain in LUQ Pain does not radiate. Pain currently is 10 out of 10 on a pain scale. Quality of pain is described as aching, Pain began 1 day ago. Is continuous, Noted to be grimacing. 11:43 Neuro: Level of Consciousness is awake, alert, obeys commands, Oriented to person, rs5 place, time, situation. Cardiovascular: Heart tones S1 S2 present Rhythm is regular. Respiratory: Airway is patent Respiratory effort is even, unlabored, Respiratory pattern is regular, symmetrical, Breath sounds are clear bilaterally. GI: Abdomen is round non-distended, Bowel sounds present X 4 quads. Abd is soft and non tender X 4 quads. Reports nausea, vomiting. : No signs and/or symptoms were reported regarding the genitourinary system. EENT: No signs and/or symptoms were reported regarding the EENT system. Derm: Skin is intact, Skin is pink, warm \T\ dry. Musculoskeletal: Range of motion: intact in all extremities. 12:25 Reassessment: Patient states feeling better. Patient states symptoms have improved. . rs5 12:25 Pain: Complains of pain in LUQ Pain does not radiate. Pain currently is 3 out of 10 on rs5 a pain scale. Quality of pain is described as aching, Pain began Is continuous. 12:40 GI: Reports nausea, vomiting, Provider notified pt is experiencing nausea. rs5 12:55 Reassessment: Pt taken for CT. rs5 13:10 GI: Patient currently denies nausea, vomiting. rs5 14:09 Reassessment: Patient and/or family updated on plan of care and expected duration. Pain rs5 level reassessed. Patient is alert, oriented x 3, equal unlabored respirations, skin warm/dry/pink. 14:09 Cardiovascular: Rhythm is regular. Respiratory: Airway is patent Respiratory effort is rs5 even, unlabored, Respiratory pattern is regular, symmetrical. 15:30 GI: Reports nausea. rs5 15:30 Reassessment: Provider notified pt is experiencing nausea . rs5 15:56 Reassessment: Patient states feeling better. GI: Patient currently denies nausea. rs5 Vital Signs: 11:50 BP 157 / 77; Pulse 87; Resp 18; Pulse Ox 99% on R/A; rs5 11:59 BP 157 / 77; Pulse 90; Resp 18 S; Pulse Ox 97% on R/A; kc6 12:01 Weight 67.13 kg (R); Height 5 ft. 0 in. (R); kc6 13:21 BP 137 / 71; Pulse 89; Resp 18; Pulse Ox 99% on R/A; rs5 12:01 Body Mass Index 28.90 (67.13 kg, 152.4 cm) kc6 ED Course: 11:43 Patient arrived in ED. rs5 11:43 Fredrick Draper MD is Attending Physician. rn 11:45 Missed attempt(s): 22 gauge in right antecubital area. Bleeding controlled, band aid rs5 applied, catheter tip intact. 11:58 Inserted saline lock: 24 gauge in left antecubital area, using aseptic technique. Blood kc6 collected. Patient maintains SpO2 saturation greater than 95% on room air. 12:00 Triage completed. kc6 12:00 Arm band placed on. kc6 12:00 Patient has correct armband on for positive identification. Bed in low position. Call kc6 light in reach. Side rails up X2. Client placed on continuous cardiac and pulse oximetry monitoring. NIBP monitoring applied. supply technician on. 12:26 IV discontinued, intact, bleeding controlled, No redness/swelling at site. Pressure kc6 dressing applied, 24G LAC appears to have infiltrated. Missed attempt(s): 22 gauge in right forearm. 12:49 Candelario Villafana, UBALDO is Primary Nurse. rs5 13:12 Abdomen In Process Unspecified. EDMS 13:34 Inserted saline lock: 22 gauge in right ,using aseptic technique. R shoulder. ll1 14:28 Jason Hernadez is Hospitalizing Provider. rn Administered Medications: 12:05 Drug: Ondansetron IVP 4 mg IVP once; over 2 minutes Route: IVP; Site: left antecubital; rs5 12:25 Follow up: Response: No adverse reaction; Nausea is decreased rs5 12:05 Drug: morphine IVP or IV 4 mg IVP once over 4 mins Route: IVP; Infused Over: 4 mins; rs5 Site: left antecubital; 12:25 Follow up: Response: No adverse reaction; Pain is decreased rs5 12:05 Drug: NS 0.9% IV 500 ml IV at bolus once Route: IV; Rate: bolus; Site: right upper arm; rs5 12:25 Follow up: Response: No adverse reaction rs5 12:20 Drug: Famotidine IVP 20 mg IVP once; dilute with 10 mL 0.9% NaCl; give over 2 minutes rs5 Route: IVP; Site: right upper arm; 12:40 Follow up: Response: No adverse reaction rs5 12:48 Drug: Promethazine IM 12.5 mg IM once Route: IM; Site: right deltoid; rs5 13:10 Follow up: Response: No adverse reaction; Nausea is decreased rs5 15:36 Drug: Promethazine IVP 12.5 mg IVP once Route: IVP; Site: right upper arm; rs5 Medication: 14:09 VIS not applicable for this client. rs5 Outcome: 14:29 Decision to Hospitalize by Provider. rn 18:14 Patient left the ED. rs5 Signatures: Dispatcher [employer] EDMS Fredrick Draper MD MD rn Lewis, Lynsay, RN RN ll1 Rayna Kidd RN RN kc6 Candelario Villafana RN RN rs5 Flor Briscoe RN RN nj1 Corrections: (The following items were deleted from the chart) 12:00 11:59 BP 157 / 7; Pulse 90bpm; Resp 18bpm; Spontaneous; Pulse Ox 97% RA; kc6 kc6 12:40 12:00 Allergies: No Known Allergies; kc6 kc6 13:04 12:59 General: Appears distressed, uncomfortable, Behavior is cooperative, agitated, rs5rs5 13:04 12:59 Pain: rs5 rs5 13:04 11:43 GI: Abdomen is round non-distended, Bowel sounds present X 4 quads. Abd is soft rs5 and non tender X 4 quads. rs5 13:11 13:10 Pain: Complains of pain in LUQ Pain does not radiate. Pain currently is 3 out of rs5 10 on a pain scale. Quality of pain is described as aching, Pain began Is continuous, rs5 13:13 13:13 Ondansetron IVP 4 mg IVP in left antecubital rs5 rs5 14:07 12:20 Pain: Complains of pain in LUQ Pain does not radiate. Pain currently is 3 out of rs5 10 on a pain scale. Quality of pain is described as aching, Pain began Is continuous, rs5 14:07 12:02 Reassessment: To bedside for med adm. rs5 rs5 15:57 15:42 Promethazine IVP 12.5 mg IVP in right upper arm nj1 rs5
[2023-03-24] MEDS ORDERED: ACETAMINOPHEN 325 MG TABLET PO PRN (14:40)
[2023-03-24] MEDS ORDERED: MAGNESIUM HYDROXIDE 8% 30 ML PO PRN (14:40)
[2023-03-24] MEDS ORDERED: SODIUM CHLORIDE 0.9% 10ML INJ IV PRN (14:46)
--- NOTE | 2023-03-24 14:46 | P.HP ---
Certification for Inpatient Patient admitted to: Observation With expected LOS: <2 Midnights Practitioner: I am a practitioner with admitting privileges, knowledge of patient current condition, hospital course, and medical plan of care. Services: Services provided to patient in accordance with Admission requirements found in Title 42 Section 412.3 of the Code of Federal Regulations Patient History Date of Service: 03/24/23 Reason for admission: Hyponatremia, volume depletion, N/V. Allergies ketorolac [From Toradol] Allergy (Verified 09/27/22 18:46) Itching/Hives/Rash Sulfa (Sulfonamide Antibiotics) Allergy (Verified 08/20/14 13:11) Itching/Hives/Rash tramadol Allergy (Verified 09/27/22 18:46) Shortness of breath Home Medications: Fenofibrate 40 mg PO DAILY 09/27/22 Pantoprazole Sodium [Protonix] 20 mg PO DAILY 09/27/22 Amlodipine [Norvasc*] 5 mg PO DAILY #30 tab 10/01/22 Hydrocodone 5/APAP 325 [Dragoon 5/325*] 1 tab PO Q6H PRN #20 tab 10/01/22 Mag Hydrox/Al Hydrox/Simeth [Maalox Suspension] 15 ml PO TID PRN #355 ml 10/01/22 Pantoprazole [Protonix Tab] 40 mg PO BID #60 tab 10/01/22 - Past Medical/Surgical History Diabetic: No -: NIDDM2 -: SBO -: GERD -: hysterectomy -: -: bowel resection - Family History Father -: Other (see notes) Notes: thought to have from cancer Mother -: Other (see notes) Notes: spinal stenosis Brother -: Heart disease, Diabetes Notes: stents. stenosis Sister -: Blood disorders Notes: form of leukemia - Social History Alcohol use: No CD- Drugs: No Caffeine use: Yes Physical Examination - Physical Exam General: Alert, Oriented x3 HEENT: Atraumatic, Normocephalic Neck: Supple Respiratory: Normal air movement Cardiovascular: Regular rate/rhythm, Normal S1 S2 Gastrointestinal: Soft and benign, Tenderness (in lower quadrant.) Musculoskeletal: No swelling Integumentary: No breakdown Neurological: Normal speech - Studies Laboratory Data (last 24 hrs) 03/24/23 03/24/23 12:17 12:17 WBC 9.30 Hgb 15.9 H Hct 45.9 H Plt Count 297 Sodium 128 L Potassium 4.0 BUN 6 L Creatinine 0.57 Glucose 150 H Total Bilirubin 0.6 AST 9 L ALT 20 Alkaline Phosphatase 96 Lipase 18 Assessment and Plan - Plan Suspected gastroenteritis. Patient does have significant nausea with vomiting and abdominal pain and also associated diarrhea. She has been having diarrhea with about 2-3 stools per day. We will continue empiric treatment with Flagyl, IV fluid and supportive care with pain control medicines. We will start on liquid diet and transition to more solid consistency as tolerated. Follow clinical course and do cultures as deemed appropriate. Hyponatremia: Serum sodium is low at 128. This is deemed secondary to wasting from GI loss. We will hydrate with isotonic saline infusion and monitor serum sodium on daily basis. Volume depletion: We will manage as above. Prophylaxis: Lovenox for DVT. Code status: Full code. Disposition: we will treat her gastroenteritis and discharge her when she is deemed clinically stable. - Advance Directives Does patient have a Living Will: No Does patient have a Durable POA for Healthcare: No
[2023-03-24] MEDS: ENOXAPARIN 40 MG/0.4 ML SQ SCH (15:00)
[2023-03-24] MEDS: NA CHLORIDE 0.9% 1,000 ML IV SCH (15:00)
[2023-03-24] MEDS: ONDANSETRON 4 MG/2 ML VIAL IV PRN ×2 (16:17→21:02)
[2023-03-24] MEDS: INSULIN REGULAR (HUMAN) 100 UNIT/ML SQ SCH ×2 (16:30→21:00)
[2023-03-24] MEDS ORDERED: ENOXAPARIN 40 MG/0.4 ML SQ ONE (17:13)
[2023-03-24] MEDS ORDERED: ACETAMINOPHEN 325 MG TABLET ONE (17:13)
[2023-03-24] MEDS ORDERED: NA CHLORIDE 0.9% 1,000 ML ONE (17:13)
[2023-03-24] MEDS: METRONIDAZOLE 500mg IVPB 500 MG/100 ML BAG IV SCH (17:55)
[2023-03-24] MEDS: MORPHINE 2 MG/ML SYR IV PRN ×2 (17:55→22:54)
[2023-03-24] MEDS ORDERED: MORPHINE 2 MG/ML SYR ONE (18:12)
[2023-03-24] MEDS ORDERED: METRONIDAZOLE 500mg IVPB 500 MG/100 ML BAG IV ONE (18:13)
[2023-03-24] MEDS ORDERED: NA CHLORIDE 0.9% 100 ML ONE (18:13)
[2023-03-24 21:15] VITALS: O2SAT 96; BMI 28.9
[2023-03-24] MEDS: PANTOPRAZOLE 40 MG INJ IVP SCH (22:54)
[2023-03-24] MEDS ORDERED: METOCLOPRAMIDE 10 MG/2mL INJ IV ONE (23:00)
[2023-03-25] MEDS: NA CHLORIDE 0.9% 1,000 ML IV SCH ×3 (01:00→16:10)
[2023-03-25] MEDS: METRONIDAZOLE 500mg IVPB 500 MG/100 ML BAG IV SCH ×3 (02:05→16:11)
[2023-03-25 03:35] LABS: Magnesium 1.8 mg/dL (1.6-2.4); Potassium 3.5 mEq/L (3.5-5.1)
[2023-03-25] MEDS: ONDANSETRON 4 MG/2 ML VIAL IV PRN ×3 (05:02→17:12)
[2023-03-25] MEDS: MORPHINE 2 MG/ML SYR IV PRN ×4 (05:02→21:39)
[2023-03-25] MEDS: INSULIN REGULAR (HUMAN) 100 UNIT/ML SQ SCH ×4 (07:30→21:00)
[2023-03-25] MEDS ORDERED: POTASSIUM CL SA 10 MEQ TAB PO ONE ×2 (07:33→09:00)
[2023-03-25] MEDS ORDERED: MAGNESIUM SULFATE 1 gm IVPB 1 GM/100 ML BAG IV ONE ×2 (07:34→09:00)
[2023-03-25] MEDS ORDERED: INFLUENZA VACCINE (for 6+ mo) 0.5 ML DOSE IMVAC ONE (08:00)
[2023-03-25] MEDS: PANTOPRAZOLE 40 MG INJ IVP SCH ×2 (08:19→21:26)
[2023-03-25] MEDS: ENOXAPARIN 40 MG/0.4 ML SQ SCH (08:22)
--- NOTE | 2023-03-25 08:41 | P.PN ---
Subjective Date of Service: 03/25/23 Chief Complaint: Hyponatremia, volume depletion, N/V. Subjective: No new changes, Improving, Doing well Patient is alert and oriented x3 Report her symptoms are getting better Continues with a mild abdominal pain Vital stable HPI: 68-year-old female patient with medical history significant for reflux esophagitis,, hypertension and complaint of abdominal pain with nausea vomiting and diarrhea for the past couple of days. Patient reports 3-4 bowel motions per day which are watery. She also has issues with lower abdominal pain. She denies overt episode of fever, chills, cough, shortness of breath. She was worked up in the ED and found to have low sodium of 128, volume depletion and suspicion for possible gastroenteritis. She started on IV fluids for volume repletion and hyponatremia management and was asked to be admitted on observation for nausea with vomiting and abdominal pain management. Review of Systems 10-point ROS is otherwise unremarkable Physical Examination - Vital Signs Temperature: 98.7 F Blood Pressure: 144/66 Pulse: 107 Respirations: 18 Pulse Ox (%): 95 - Physical Exam General: Alert, Oriented x3 HEENT: Atraumatic, PERRLA Neck: 2+ carotid pulse no bruit Respiratory: Clear to auscultation bilaterally, Normal air movement Cardiovascular: No edema, Normal pulses, Normal S1 S2 Capillary refill: <2 Seconds Gastrointestinal: Normal bowel sounds, Soft and benign Musculoskeletal: No clubbing, No swelling, No warmth Integumentary: No rashes, No breakdown, No significant lesion Neurological: Normal gait, Normal speech, Normal affect - Studies Laboratory Data (last 24 hrs) 03/24/23 03/24/23 12:17 12:17 WBC 9.30 Hgb 15.9 H Hct 45.9 H Plt Count 297 Sodium 128 L Potassium 4.0 BUN 6 L Creatinine 0.57 Glucose 150 H Total Bilirubin 0.6 AST 9 L ALT 20 Alkaline Phosphatase 96 Lipase 18 Assessment And Plan - Current Problems (Diagnosis) (1) HTN (hypertension) Current Visit: Yes Status: Chronic Plan: Chronic, uncontrolled on amlodipine at home We will resume amlodipine GFR 103 Low-sodium diet (2) GERD (gastroesophageal reflux disease) Current Visit: Yes Status: Chronic Plan: Chronic, controlled on Protonix at home We will continue empiric treatment with Flagyl, IV fluid and supportive care with pain control medicines. We will start on liquid diet and transition to more solid consistency as tolerated. Follow clinical course and do cultures as deemed appropriate. GERD diet (3) GERD without esophagitis Current Visit: Yes Status: Acute Plan: Chronic improving continue PPI We will continue empiric treatment with Flagyl, IV fluid and supportive care with pain control medicines. We will start on liquid diet and transition to more solid consistency as tolerated. Follow clinical course and do cultures as deemed appropriate. (4) Nausea & vomiting Current Visit: Yes Status: Acute Plan: Acute, improving no more vomiting last night Patient reports feeling better On Zofran as needed for nausea or vomiting Continue IV hydration at this time (5) Abdominal pain Current Visit: Yes Status: Acute Plan: Acute, improving abdominal pain CT abdomen on 03/24/2023 shows no acute findings We will continue empiric treatment with Flagyl, IV fluid and supportive care with pain control medicines. We will start on liquid diet and transition to more solid consistency as tolerated. Follow clinical course and do cultures as deemed appropriate. Continue morphine for pain at this time Continue IV hydration (6) Hypomagnesemia Current Visit: Yes Status: Acute Plan: Acute, improving magnesium 1.8 today Will replace as per hospital protocol Recheck magnesium in the morning - Plan Prophylaxis: Lovenox for DVT. Code status: Full code. Disposition: we will treat her gastroenteritis and discharge her when she is deemed clinically stable. Discharge Plan: Home Plan to discharge in: 24 Hours - Code Status/Comfort Care Code Status Assessed: Yes (Full code) Code Status: Full Code Physician Review: Patient Assessed, Agree with Above Assessment and Plan Critical Care: No Time Spent Managing PTS Care (In Minutes): 35 (Minutes)
[2023-03-26] MEDS: METRONIDAZOLE 500mg IVPB 500 MG/100 ML BAG IV SCH ×2 (01:11→08:09)
[2023-03-26 03:22] LABS: Potassium 3.8 mEq/L (3.5-5.1)
[2023-03-26] MEDS: NA CHLORIDE 0.9% 1,000 ML IV SCH (03:49)
[2023-03-26] MEDS: MORPHINE 2 MG/ML SYR IV PRN (04:03)
[2023-03-26 06:38] VITALS: BP 129/71; TEMP 97.5
[2023-03-26] MEDS: INSULIN REGULAR (HUMAN) 100 UNIT/ML SQ SCH (07:30)
[2023-03-26] MEDS: ENOXAPARIN 40 MG/0.4 ML SQ SCH (08:08)
[2023-03-26] MEDS: PANTOPRAZOLE 40 MG INJ IVP SCH (08:09)
--- NOTE | 2023-03-26 08:43 | P.PN ---
Subjective Date of Service: 03/26/23 Chief Complaint: Hyponatremia, volume depletion, N/V. Subjective: No new changes, Improving, Doing well Patient is alert and oriented x3 Report her symptoms are getting better Continues with a mild abdominal pain Vital stable HPI: 68-year-old female patient with medical history significant for reflux esophagitis,, hypertension and complaint of abdominal pain with nausea vomiting and diarrhea for the past couple of days. Patient reports 3-4 bowel motions per day which are watery. She also has issues with lower abdominal pain. She denies overt episode of fever, chills, cough, shortness of breath. She was worked up in the ED and found to have low sodium of 128, volume depletion and suspicion for possible gastroenteritis. She started on IV fluids for volume repletion and hyponatremia management and was asked to be admitted on observation for nausea with vomiting and abdominal pain management. Review of Systems 10-point ROS is otherwise unremarkable Physical Examination - Vital Signs Temperature: 97.5 F Blood Pressure: 129/71 Pulse: 81 Respirations: 15 Pulse Ox (%): 97 - Physical Exam General: Alert, Oriented x3 HEENT: Atraumatic, Normocephalic, PERRLA Neck: Supple, 2+ carotid pulse no bruit Respiratory: Clear to auscultation bilaterally, Normal air movement Cardiovascular: No edema, Normal pulses Capillary refill: <2 Seconds Gastrointestinal: Normal bowel sounds, Soft and benign, Non-distended Musculoskeletal: No clubbing, No swelling Neurological: Normal speech, Normal tone, Normal affect Assessment And Plan - Current Problems (Diagnosis) (1) HTN (hypertension) Current Visit: Yes Status: Chronic Plan: Chronic, uncontrolled on amlodipine at home We will resume amlodipine GFR 107 Low-sodium diet (2) GERD (gastroesophageal reflux disease) Current Visit: Yes Status: Chronic Plan: Chronic, controlled on Protonix at home We will continue empiric treatment with Flagyl, IV fluid and supportive care with pain control medicines. Advance to soft diet, transition to more solid consistency as tolerated. Follow clinical course and do cultures as deemed appropriate. GERD diet Qualifiers: Esophagitis presence: without esophagitis Qualified Code(s): K21.9 - Gastro-esophageal reflux disease without esophagitis (3) GERD without esophagitis Current Visit: Yes Status: Acute Plan: Chronic improving continue PPI We will continue empiric treatment with Flagyl, IV fluid and supportive care with pain control medicines. We will start on liquid diet and transition to more solid consistency as tolerated. Follow clinical course and do cultures as deemed appropriate. (4) Nausea & vomiting Current Visit: Yes Status: Acute Plan: Acute, improving no more vomiting Patient reports feeling better On Zofran as needed for nausea or vomiting Continue IV hydration at this time (5) Abdominal pain Current Visit: Yes Status: Acute Plan: Acute, improving abdominal pain CT abdomen on 03/24/2023 shows no acute findings We will continue empiric treatment with Flagyl, IV fluid and supportive care with pain control medicines. We will advance to soft diet and transition to more solid consistency as tolerated. Follow clinical course and do cultures as deemed appropriate. Continue morphine for pain at this time Continue IV hydration (6) Hypomagnesemia Current Visit: Yes Status: Acute Plan: Acute, improving magnesium 1.8 today Will replace as per hospital protocol Recheck magnesium in the morning - Plan Prophylaxis: Lovenox for DVT. Code status: Full code. Disposition: we will treat her gastroenteritis and discharge her when she is deemed clinically stable. Discharge Plan: Home Plan to discharge in: 48 Hours - Code Status/Comfort Care Code Status Assessed: Yes (Full code) Code Status: Full Code Physician Review: Patient Assessed, Agree with Above Assessment and Plan Critical Care: No Time Spent Managing PTS Care (In Minutes): 35 (Minutes)
[2023-03-26] MEDS ORDERED: POTASSIUM CL SA 10 MEQ TAB PO ONE (09:00)
--- NOTE | 2023-03-26 10:07 | P.DS ---
Admission Date: 03/26/23 Discharge Date: 03/26/23 Disposition: ROUTINE DISCHARGE Discharge Condition: GOOD Reason for Admission: Hyponatremia, volume depletion, N/V. - Problems (1) HTN (hypertension) Current Visit: Yes Status: Chronic (2) GERD (gastroesophageal reflux disease) Current Visit: Yes Status: Chronic Qualifiers: Esophagitis presence: without esophagitis Qualified Code(s): K21.9 - Gastro-esophageal reflux disease without esophagitis (3) GERD without esophagitis Current Visit: Yes Status: Acute (4) Nausea & vomiting Current Visit: Yes Status: Acute (5) Abdominal pain Current Visit: Yes Status: Acute (6) Hypomagnesemia Current Visit: Yes Status: Acute Brief History of Present Illness: HPI: 68-year-old female patient with medical history significant for reflux esophagitis,, hypertension and complaint of abdominal pain with nausea vomiting and diarrhea for the past couple of days. Patient reports 3-4 bowel motions per day which are watery. She also has issues with lower abdominal pain. She denies overt episode of fever, chills, cough, shortness of breath. She was worked up in the ED and found to have low sodium of 128, volume depletion and suspicion for possible gastroenteritis. She started on IV fluids for volume repletion and hyponatremia management and was asked to be admitted on observation for nausea with vomiting and abdominal pain management. Hospital Course: Ms. Pool is a pleasant 68-year-old with a past medical history significant for GERD, hypertension who was admitted to the [facility] on 03/24/2023 for gastroenteritis, hyponatremia. Patient was treated with IV fluid for the hyponatremia management and started on IV antibiotics. Patient was kept n.p.o. for 1 day then advance the diet to soft and regular diet. Patient is tolerating the diet. On 03/26/2023, patient was seen on morning rounds and deemed medically stable for discharge. Patient was was discharged with instructions to schedule follow-up appointments with PCP in 3 to 5 days. Patient was provided prescriptions for Flagyl 500 p.o. 3 times daily for 10 days. The patient were given the opportunity to ask questions and reported no further questions. Furthermore, all questions were answered to the best of my ability. Vital Signs/Physical Exam: Temp Pulse Resp BP Pulse Ox 97.5 F 81 15 129/71 97 03/26/23 08:43 03/26/23 08:43 03/26/23 08:43 03/26/23 08:43 03/26/23 08:43 General: Alert, Oriented x3 HEENT: Atraumatic, Normocephalic Neck: Supple, 2+ carotid pulse no bruit Respiratory: Clear to auscultation bilaterally, Normal air movement Cardiovascular: No edema, Normal pulses Capillary refill: <2 Seconds Gastrointestinal: Normal bowel sounds, Soft and benign, Non-distended Musculoskeletal: No clubbing, No swelling Integumentary: No rashes, No breakdown Neurological: Normal speech, Normal tone, Normal affect Laboratory Data at Discharge: WBC 9.30 thou/uL (4.3-10.9) 03/24/23 12:17 Hgb 15.9 g/dL (12.0-15.0) H 03/24/23 12:17 Hct 45.9 % (36.0-45.0) H 03/24/23 12:17 Plt Count 297 thou/uL (152-406) 03/24/23 12:17 Sodium 136 mEq/L (136-145) 03/26/23 02:09 Potassium 3.8 mEq/L (3.5-5.1) 03/26/23 02:09 BUN 6 mg/dL (7-18) L 03/26/23 02:09 Creatinine 0.42 mg/dL (0.55-1.02) L 03/26/23 02:09 Glucose 95 mg/dL (74-106) 03/26/23 02:09 Magnesium 1.8 mg/dL (1.6-2.4) 03/25/23 02:29 Total Bilirubin 0.6 mg/dL (0.2-1.0) 03/24/23 12:17 AST 9 U/L (15-37) L 03/24/23 12:17 ALT 20 U/L (13-56) 03/24/23 12:17 Alkaline Phosphatase 96 U/L (45-117) 03/24/23 12:17 Lipase 18 U/L (13-75) 03/24/23 12:17 Home Medications: Fenofibrate 40 mg PO DAILY 09/27/22 Amlodipine [Norvasc*] 5 mg PO DAILY #30 tab 10/01/22 Hydrocodone 5/APAP 325 [[place] 5/325*] 1 tab PO Q6H PRN #20 tab 10/01/22 Mag Hydrox/Al Hydrox/Simeth [Maalox Suspension] 15 ml PO TID PRN #355 ml 10/01/22 Pantoprazole [Protonix Tab*] 40 mg PO BID #60 tab 10/01/22 metroNIDAZOLE [Flagyl] 500 mg PO Q8H 10 Days #30 tab 03/26/23 New Medications: metroNIDAZOLE [Flagyl] 500 mg PO Q8H 10 Days #30 tab Physician Discharge Instructions: Ms. Pool is a pleasant 68-year-old with a past medical history significant for GERD, hypertension who was admitted to the [facility] on 03/24/2023 for gastroenteritis, hyponatremia. Patient was treated with IV fluid for the hyponatremia management and started on IV antibiotics. Patient was kept n.p.o. for 1 day then advance the diet to soft and regular diet. Patient is tolerating the diet. On 03/26/2023, patient was seen on morning rounds and deemed medically stable for discharge. Patient was was discharged with instructions to schedule follow-up appointments with PCP in 3 to 5 days. Patient was provided prescriptions for Flagyl 500 p.o. 3 times daily for 10 days. The patient were given the opportunity to ask questions and reported no further questions. Furthermore, all questions were answered to the best of my ability. Diet: Regular Activity: Ad isi Followup: Marin Johnson FNP [Primary Care Provider] - Physician Review: Patient Assessed, Agree with Above Assessment and Plan Time spent managing pt's care (in minutes): 55 (minutes)
== END 2023-03-26 11:05 | disposition home or self-care (01) | DRG 641 ==
LOC: ER 11:40 → ERHOLD 14:40 → 2ND 17:21 → OBSVTOIN 03-26 08:53
PROVIDERS: ADMIT Internal Medicine Nephrology; ATTEND Internal Medicine Nephrology
DX: E87.1 Hypo-osmolality and hyponatremia (principal); I10 Essential (primary) hypertension; E86.9 Volume depletion, unspecified; K52.9 Noninfective gastroenteritis and colitis, unspecified; K21.9 Gastro-esophageal reflux disease without esophagitis; E83.42 Hypomagnesemia; E78.00 Pure hypercholesterolemia, unspecified; Z88.5 Allergy status to narcotic agent; Z88.2 Allergy status to sulfonamides; Z88.8 Allergy status to other drugs, medicaments and biological substances; Z90.49 Acquired absence of other specified parts of digestive tract; Z79.899 Other long term (current) drug therapy; Z90.710 Acquired absence of both cervix and uterus
CPT/HCPCS: 36415; 74176; 80048; 80053; 82947; 83690; 83735; 85025; 87804; 96372; 99285; C9113; G0378; J1650; J2270; J2405; J2550; J2765; J3475; J7030; J7040

== ENCOUNTER 2023-06-09 16:47 | Inpatient (IN) | payer OTHER ==
--- OUTSIDE RECORDS SUMMARY | 2023-06-09 16:53 | XMS REPORT | Continuity of Care Document ---
Author Name Unknown Address [address] [facility] [address] [place] [address] [facility] thconnect Address [address] [facility] [address] [place] [address] Care Team Providers Care Map Maker Name Role Phone Pcp, Patient Does Not Have A Primary Care Physic juan Doctor Unassigned, Luana Attending Clinician U Maegan Valdez MD Attending Clinician MAEGAN DENNY Attending Clinician Unavailabl e AMBREEN_FARHANA Attending Clinician Unavailable AMBREEN_SUYAPA Admitting Clinician Unavailable Payers Payer Name Policy Type Policy Number Effective Date Expirati on Date Source [facility] (MEDICARE REPLACEMENT HMO) [id number] 2022 00:00:00 Allergies, Adverse Reactions, Alerts Allergy Name Allergy Type Status Severity Reaction(s) Onset Date Inactive Date Treating Clinician Comments Source Sulfa (Sulfona mide Antibiot ics) Propensi ty to adverse reaction to drug Active 07-21 00:00: 00 NO KNOWN ALLERGIE S Drug Class Active [facility] Social History Social Habit Start Date Stop Date Quantity Comments Source Exposure to SARS-CoV-2 (event) 2022-09-27 00:00:00 2022-10-07 14:36:00 Not sure [facility] Sex Assigned At 1955 00:00:00 1955 00:00:00 [facility] Smoking Status Start Date Stop Date Source Tobacco smoking consumption unknown [facility] Medications Ordered Medication Name Filled Medication Name Start Date Stop Date Current Medication? Ordering Clinician Indication Dosage Frequency Signature (SIG) Comments Components Source triamcinolo ne acetonide (KENALOG) injection 40 mg 10-07 21:45: 00 10-07 20:33 :00 No [id number] 40mg [facility] triamcinolo ne acetonide (KENALOG) injection 40 mg 10-07 21:45: 00 10-07 20:33 :00 No [id number] 40mg 40 mg, Intramuscu lar, ONCE, 1 dose, On Fri10/07/22 at 1645, Routine [facility] triamcinolo ne acetonide (KENALOG) injection 40 mg 10-07 21:45: 00 10-07 20:33 :00 No [id number] 9108 40mg [facility] triamcinolo ne acetonide (KENALOG) injection 40 mg 10-07 21:45: 00 10-07 20:33 :00 No [id number] 9108 40mg 40 mg, Intramuscu lar, ONCE, 1 dose, On Fri10/07/22 at 1645, Routine [facility] traMADoL 50 mg tablet 10-07 00:00: 00 10-15 04:59 :00 No [id number] 50mg Take 1 tablet by mouth every 6 (six) hours as needed for Pain (scale 4-6) for up to 7 days. Indication s: acute pain [facility] traMADoL 50 mg tablet 10-07 00:00: 00 10-15 04:59 :00 No [id number] 50mg Take 1 tablet by mouth every 6 (six) hours as needed for Pain (scale 4-6) for up to 7 days. Indication s: acute pain [facility] traMADoL 50 mg tablet 10-07 00:00: 00 10-15 04:59 :00 No 4647 50mg Take 1 tablet by mouth every 6 (six) hours as needed for Pain (scale 4-6) for up to 7 days. Indication s: acute pain [facility] traMADoL 50 mg tablet 10-07 00:00: 00 10-15 04:59 :00 No 4647 50mg Take 1 tablet by mouth every 6 (six) hours as needed for Pain (scale 4-6) for up to 7 days. Indication s: acute pain [facility] traMADoL 50 mg tablet 3-0 22 00:00: 00 10-15 04:59 :00 No 4647 50mg Take 1 tablet by mouth every 6 (six) hours as needed for Pain (scale 4-6) for up to 7 days. Indication s: acute pain [facility] traMADoL 50 mg tablet 3-0 10-07 00:00: 00 10-15 04:59 :00 No 4647 50mg Take 1 tablet by mouth every 6 (six) hours as needed for Pain (scale 4-6) for up to 7 days. Indication s: acute pain [facility] amLODIPine 5 mg tablet 3-0 5-16 00:00: 00 Yes 5mg Take 1 tablet by mouth in the morning. [facility] amLODIPine 5 mg tablet 3-0 5-16 00:00: 00 Yes 5mg Take 1 tablet by mouth in the morning. [facility] amLODIPine 5 mg tablet 3-0 5-16 00:00: 00 Yes 5mg Take 1 tablet by mouth in the morning. [facility] amLODIPine 5 mg tablet 3-0 5-16 00:00: 00 Yes 5mg Take 1 tablet by mouth in the morning. [facility] amLODIPine 5 mg tablet 3-0 5-16 00:00: 00 Yes 5mg Take 1 tablet by mouth in the morning. [facility] amLODIPine 5 mg tablet 3-0 5-16 00:00: 00 Yes 5mg Take 1 tablet by mouth in the morning. [facility] amLODIPine 5 mg tablet 2023-0 5-16 00:00: 00 Yes 5mg Take 1 tablet by mouth in the morning. [facility] amLODIPine 5 mg tablet 2023-0 5-16 00:00: 00 Yes 5mg Take 1 tablet by mouth in the morning. [facility] amLODIPine 5 mg tablet 2023-0 5-16 00:00: 00 Yes 5mg Take 1 tablet by mouth in the morning. [facility] pantoprazol e 40 mg EC tablet 4- 00:00: 00 Yes [facility] pantoprazol e 40 mg EC tablet 4- 00:00: 00 Yes [facility] pantoprazol e 40 mg EC tablet 4- 00:00: 00 Yes [facility] pantoprazol e 40 mg EC tablet 08-20 00:00: 00 Yes [facility] pantoprazol e 40 mg EC tablet 08-20 00:00: 00 Yes [facility] pantoprazol e 40 mg EC tablet 08-20 00:00: 00 Yes [facility] pantoprazol e 40 mg EC tablet 08-20 00:00: 00 Yes [facility] pantoprazol e 40 mg EC tablet 08-20 00:00: 00 Yes [facility] pantoprazol e 40 mg EC tablet 08-20 00:00: 00 Yes [facility] Dose Unknown 2021-05 00:00: 00 No 20 TAKE 2 TABLETS ON DAY 1 THEN TAKE 1 TABLET A DAY FOR 4 DAYS. 2021-05 00:00: 00 No 250 PREGABALIN 300 MG CAPSULE</Te xt> <Code> <Value>[id number]</Va lue> <CodingSyst em>NDC</Cod ingSystem> </Code> 2021-05 00:00: 00 No 300 Dose Unknown 2021-05 00:00: 00 No Dose Unknown 2021-05- 00:00: 00 No Dose Unknown 2021-05- 00:00: 00 No Dose Unknown 2021-05- 00:00: 00 No INHALE 1 PUFF TWICE DAILY. 2021-05 00:00: 00 No [id number] 5 INHALE 2 PUFFS EVERY 4 TO 6 HOURS NEEDED. 2021-05 00:00: 00 No [id number] PROAIR HFA 90 MCG INHALER</Te xt> <Code> <Value>[id number]</Va lue> <CodingSyst em>NDC</Cod ingSystem> </Code> 2021-05 2- 00:00: 00 No Dose Unknown 2021-05 2 00:00: 00 No AMOX-CLAV 875-125 MG TABLET</Nicolás t> <Code> <Value>[id number]</Va lue> <CodingSyst em>NDC</Cod ingSystem> </Code&gt 2021-05 00:00: 00 No HYDROCHLORO THIAZIDE 25 MG TAB</Text> <Code> <Value>[id number]</Va lue> <CodingSyst em>NDC</Cod ingSystem> </Code& 2021-05 00:00: 00 No 25 TAKE 1 TABLET AT BEDTIME. 2021-05 00:00: 00 No 20 Dose Unknown 2021-05 00:00: 00 No PREGABALIN 150 MG CAPSULE</Te xt> <Code> <Value>[id number]</Va lue> <CodingSyst em>NDC</Cod ingSystem> </Code> 2021-05 00:00: 00 No 150 TAKE 5 ML DAILY AT BEDTIME. 2021-05 00:00: 00 No [id number] TAKE 1 TABLET DAILY. 2021-05 2 00:00: 00 No 160 TAKE 1 CAPSULE BY MOUTH THREE TIMES DAILY 2021-05 2- 00:00: 00 No 300 Dose Unknown 2021-05 00:00: 00 No TAKE 1 TABLET 4 TIMES DAILY. 2021-05 00:00: 00 No 800 Dose Unknown 2021-05- 00:00: 00 No PREGABALIN 300 MG CAPSULE - 00:00: 00 No PREGABALIN 300 MG CAPSULE - 00:00: 00 No PREGABALIN 300 MG CAPSULE 9-19 00:00: 00 No PREGABALIN 300 MG CAPSULE 9-19 00:00: 00 No Lyrica 150 mg capsule 2022-0 8-16 00:00: 00 No 1mg &lt 2022-0 8-16 00:00: 00 No 300 Dose Unknown 2022-0 8-16 00:00: 00 No 20 Dose Unknown 2022-0 8-16 00:00: 00 No 20 Dose Unknown 2022-0 8-16 00:00: 00 No 20 &lt 2022-0 8-16 00:00: 00 No 300 &lt 2022-0 8-16 00:00: 00 No 300 Dose Unknown 2022-0 8-16 00:00: 00 No 20 &lt 2022-0 8-16 00:00: 00 No 300 Dose Unknown 2022-0 8-16 00:00: 00 No 20 Dose Unknown 2022-0 8-16 00:00: 00 No Lyrica 150 mg capsule 2022-0 8-16 00:00: 00 No 1mg &lt 2022-0 8-16 00:00: 00 No 300 Dose Unknown 2022-0 8-16 00:00: 00 No 20 Dose Unknown 2022-0 8-16 00:00: 00 No 20 Dose Unknown 2022-0 8-16 00:00: 00 No 20 &lt 2022-0 8-16 00:00: 00 No 300 &lt 2022-0 8-16 00:00: 00 No 300 Dose Unknown 2022-0 8-16 00:00: 00 No 20 &lt 2022-0 8-16 00:00: 00 No 300 Dose Unknown 2022-0 8-16 00:00: 00 No 20 Dose Unknown 2022-0 8-16 00:00: 00 No Lyrica 150 mg capsule 2022-0 8-16 00:00: 00 No 1mg &lt 2022-0 8-16 00:00: 00 No 300 Dose Unknown 2022-0 8-16 00:00: 00 No 20 Dose Unknown 2022-0 8-16 00:00: 00 No 20 Dose Unknown 2022-0 8-16 00:00: 00 No 20 &lt 2022-0 8-16 00:00: 00 No 300 &lt 2022-0 8-16 00:00: 00 No 300 Dose Unknown 2022-0 8-16 00:00: 00 No 20 &lt 2022-0 8-16 00:00: 00 No 300 Dose Unknown 2022-0 8-16 00:00: 00 No 20 Dose Unknown 2022-0 8-16 00:00: 00 No Lyrica 150 mg capsule 2022-0 8-16 00:00: 00 No 1mg &lt 2022-0 8-16 00:00: 00 No 300 Dose Unknown 2022-0 8-16 00:00: 00 No 20 Dose Unknown 2022-0 8-16 00:00: 00 No 20 Dose Unknown 2022-0 8-16 00:00: 00 No 20 &lt 2022-0 8-16 00:00: 00 No 300 &lt 2022-0 8-16 00:00: 00 No 300 Dose Unknown 2022-0 8-16 00:00: 00 No 20 &lt 2022-0 8-16 00:00: 00 No 300 Dose Unknown 2022-0 8-16 00:00: 00 No 20 Dose Unknown 2022-0 8-16 00:00: 00 No Dose Unknown 2022-0 8-15 00:00: 00 No 20 &lt 2022-0 8-15 00:00: 00 No 300 Dose Unknown 2022-0 8-15 00:00: 00 No 20 &lt 2022-0 8-15 00:00: 00 No 300 Dose Unknown 2022-0 8-15 00:00: 00 No 20 &lt 2022-0 8-15 00:00: 00 No 300 Dose Unknown 2022-0 8-15 00:00: 00 No 20 &lt 2022-0 8-15 00:00: 00 No 300 azithromyci n 250 mg tablet 2-0 7-15 00:00: 00 No mg prednisone 20 mg tablet 2-0 7-15 00:00: 00 No mg Lyrica 150 mg capsule 2-0 7-15 00:00: 00 No 1mg TAKE 1 TABLET BY MOUTH TWICE DAILY 2-0 7-15 00:00: 00 No 875 Dose Unknown 2022-0 7-15 00:00: 00 No 250 &lt 2022-0 7-15 00:00: 00 No 300 azithromyci n 250 mg tablet 2-0 7-15 00:00: 00 No mg prednisone 20 mg tablet 2-0 7-15 00:00: 00 No mg Lyrica 150 mg capsule 0 11-30 00:00: 00 No 1mg TAKE 1 TABLET BY MOUTH TWICE DAILY 0 11-30 00:00: 00 No 875 Dose Unknown 0 11-30 00:00: 00 No 250 &lt 2-0 15 00:00: 00 No 300 azithromyci n 250 mg tablet 0 11-30 00:00: 00 No mg prednisone 20 mg tablet 0 11-30 00:00: 00 No mg Lyrica 150 mg capsule 0 11-30 00:00: 00 No 1mg TAKE 1 TABLET BY MOUTH TWICE DAILY 0 11-30 00:00: 00 No 875 Dose Unknown 0 11-30 00:00: 00 No 250 &lt 2021-0 11-30 00:00: 00 No 300 azithromyci n 250 mg tablet 0 11-30 00:00: 00 No mg prednisone 20 mg tablet 0 11-30 00:00: 00 No mg Lyrica 150 mg capsule 0 11-30 00:00: 00 No 1mg TAKE 1 TABLET BY MOUTH TWICE DAILY 0 11-30 00:00: 00 No 875 Dose Unknown 0 11-30 00:00: 00 No 250 &lt 2021-0 11-30 00:00: 00 No 300 pregabalin 300 mg capsule 0 11-21 00:00: 00 No 1mg &lt 2022-0 - 00:00: 00 No 20 TAKE 1 TABLET BY MOUTH FOUR TIMES DAILY 0 - 00:00: 00 No 600 &lt 2022-0 - 00:00: 00 No 300 Dose Unknown 0 - 00:00: 00 No 250 &lt 2022-0 7- 00:00: 00 No 20 pregabalin 300 mg capsule 0 - 00:00: 00 No 1mg &lt 2022-0 - 00:00: 00 No 20 TAKE 1 TABLET BY MOUTH FOUR TIMES DAILY 2021-0 - 00:00: 00 No 600 &lt 2022-0 7- 00:00: 00 No 300 Dose Unknown 0 - 00:00: 00 No 250 &lt 2022-0 7-06 00:00: 00 No 20 pregabalin 300 mg capsule 2022-0 7-06 00:00: 00 No 1mg &lt 2022-0 7-06 00:00: 00 No 20 TAKE 1 TABLET BY MOUTH FOUR TIMES DAILY 2022-0 7-06 00:00: 00 No 600 &lt 2022-0 7-06 00:00: 00 No 300 Dose Unknown 2022-0 7-06 00:00: 00 No 250 &lt 2022-0 7-06 00:00: 00 No 20 pregabalin 300 mg capsule 2022-0 7-06 00:00: 00 No 1mg &lt 2022-0 7-06 00:00: 00 No 20 TAKE 1 TABLET BY MOUTH FOUR TIMES DAILY 2022-0 7-06 00:00: 00 No 600 &lt 2022-0 7-06 00:00: 00 No 300 Dose Unknown 2022-0 7-06 00:00: 00 No 250 &lt 2022-0 7-06 00:00: 00 No 20 pregabalin 300 mg capsule 2022-0 6-06 00:00: 00 No 1mg &lt 2022-0 6-06 00:00: 00 No pregabalin 300 mg capsule 2022-0 6-06 00:00: 00 No 1mg &lt 2022-0 6-06 00:00: 00 No pregabalin 300 mg capsule 2022-0 6-06 00:00: 00 No 1mg &lt 2022-0 6-06 00:00: 00 No pregabalin 300 mg capsule 2022-0 6-06 00:00: 00 No 1mg &lt 2022-0 6-06 00:00: 00 No pregabalin 300 mg capsule 2022-0 5-05 00:00: 00 No 1mg pregabalin 300 mg capsule 2022-0 5-05 00:00: 00 No 1mg pregabalin 300 mg capsule 2022-0 5-05 00:00: 00 No 1mg pregabalin 300 mg capsule 2022-0 5-05 00:00: 00 No 1mg Dose Unknown 2022-0 4-07 00:00: 00 No Dose Unknown 2022-0 4-07 00:00: 00 No Dose Unknown 2022-0 4-07 00:00: 00 No Dose Unknown 2022-0 4-07 00:00: 00 No amoxicillin 875 mg-potassiu m clavulanate 125 mg tablet 2022-0 330 00:00: 00 No 1mg Bromfed DM 2 mg-30 mg-10 mg/5 mL oral syrup 2022-0 3-30 00:00: 00 No 10mg/5 mL Dose Unknown 2022-0 3-30 00:00: 00 No Dose Unknown 2022-0 330 00:00: 00 No Dose Unknown 2022-0 330 00:00: 00 No Dose Unknown 2022-0 330 00:00: 00 No Dose Unknown 2022-0 330 00:00: 00 No Dose Unknown 2022-0 330 00:00: 00 No Dose Unknown 2022-0 330 00:00: 00 No Dose Unknown 2022-0 3 00:00: 00 No Dose Unknown 2022-0 330 00:00: 00 No Dose Unknown 2022-0 330 00:00: 00 No Dose Unknown 2022-0 330 00:00: 00 No Dose Unknown 2022-0 330 00:00: 00 No Dose Unknown 2022-0 330 00:00: 00 No Dose Unknown 2022-0 330 00:00: 00 No Dose Unknown 2022-0 330 00:00: 00 No Dose Unknown 2022-0 330 00:00: 00 No Dose Unknown 2022-0 330 00:00: 00 No Dose Unknown 2022-0 330 00:00: 00 No Dose Unknown 2022-0 330 00:00: 00 No Dose Unknown 2022-0 330 00:00: 00 No Dose Unknown 2022-0 330 00:00: 00 No Dose Unknown 2022-0 330 00:00: 00 No Dose Unknown 2022-0 330 00:00: 00 No Dose Unknown 2022-0 330 00:00: 00 No Dose Unknown 2022-0 330 00:00: 00 No Dose Unknown 2022-0 330 00:00: 00 No Dose Unknown 2022-0 330 00:00: 00 No Dose Unknown 2022-0 330 00:00: 00 No Dose Unknown 2022-0 330 00:00: 00 No Dose Unknown 2022-0 330 00:00: 00 No Dose Unknown 2022-0 330 00:00: 00 No Dose Unknown 2022-0 330 00:00: 00 No Dose Unknown 2022-0 3 00:00: 00 No Dose Unknown 2022-0 3 00:00: 00 No Dose Unknown 2022-0 330 00:00: 00 No Dose Unknown 2022-0 330 00:00: 00 No Dose Unknown 2022-0 330 00:00: 00 No Dose Unknown 2022-0 330 00:00: 00 No Dose Unknown 2022-0 330 00:00: 00 No Dose Unknown 2022-0 3 00:00: 00 No amoxicillin 875 mg-potassiu m clavulanate 125 mg tablet 2022-0 3 00:00: 00 No 1mg Bromfed DM 2 mg-30 mg-10 mg/5 mL oral syrup 2022-0 330 00:00: 00 No 10mg/5 mL Dose Unknown 2022-0 3 00:00: 00 No Dose Unknown 2022-0 330 00:00: 00 No Dose Unknown 2022-0 330 00:00: 00 No Dose Unknown 2022-0 330 00:00: 00 No Dose Unknown 2022-0 3 00:00: 00 No Dose Unknown 2022-0 3 00:00: 00 No Dose Unknown 2022-0 330 00:00: 00 No Dose Unknown 2022-0 330 00:00: 00 No Dose Unknown 2022-0 330 00:00: 00 No Dose Unknown 2022-0 330 00:00: 00 No Dose Unknown 2022-0 330 00:00: 00 No Dose Unknown 2022-0 330 00:00: 00 No Dose Unknown 2022-0 330 00:00: 00 No Dose Unknown 2022-0 3 00:00: 00 No Dose Unknown 2022-0 330 00:00: 00 No Dose Unknown 2022-0 330 00:00: 00 No Dose Unknown 2022-0 330 00:00: 00 No Dose Unknown 2022-0 330 00:00: 00 No Dose Unknown 2022-0 330 00:00: 00 No Dose Unknown 2022-0 330 00:00: 00 No Dose Unknown 2022-0 330 00:00: 00 No Dose Unknown 2022-0 330 00:00: 00 No Dose Unknown 2022-0 330 00:00: 00 No Dose Unknown 2022-0 330 00:00: 00 No Dose Unknown 2022-0 330 00:00: 00 No Dose Unknown 2022-0 330 00:00: 00 No Dose Unknown 2022-0 330 00:00: 00 No Dose Unknown 2022-0 330 00:00: 00 No Dose Unknown 2022-0 330 00:00: 00 No Dose Unknown 2022-0 3 00:00: 00 No Dose Unknown 2022-0 330 00:00: 00 No Dose Unknown 2022-0 330 00:00: 00 No Dose Unknown 2022-0 330 00:00: 00 No Dose Unknown 2022-0 330 00:00: 00 No Dose Unknown 2022-0 330 00:00: 00 No Dose Unknown 2022-0 330 00:00: 00 No Dose Unknown 2022-0 330 00:00: 00 No Dose Unknown 2022-0 330 00:00: 00 No Dose Unknown 2022-0 3 00:00: 00 No Dose Unknown 2022-0 330 00:00: 00 No amoxicillin 875 mg-potassiu m clavulanate 125 mg tablet 2022-0 330 00:00: 00 No 1mg Bromfed DM 2 mg-30 mg-10 mg/5 mL oral syrup 2022-0 330 00:00: 00 No 10mg/5 mL Dose Unknown 2022-0 330 00:00: 00 No Dose Unknown 2022-0 330 00:00: 00 No Dose Unknown 2022-0 3 00:00: 00 No Dose Unknown 2022-0 330 00:00: 00 No Dose Unknown 2022-0 330 00:00: 00 No Dose Unknown 2022-0 3-30 00:00: 00 No Dose Unknown 2022-0 330 00:00: 00 No Dose Unknown 2022-0 330 00:00: 00 No Dose Unknown 2022-0 330 00:00: 00 No Dose Unknown 2022-0 330 00:00: 00 No Dose Unknown 2022-0 3 00:00: 00 No Dose Unknown 2022-0 330 00:00: 00 No amoxicillin 875 mg-potassiu m clavulanate 125 mg tablet 2022-0 3 00:00: 00 No 1mg Bromfed DM 2 mg-30 mg-10 mg/5 mL oral syrup 2022-0 3 00:00: 00 No 10mg/5 mL Dose Unknown 2022-0 3 00:00: 00 No Dose Unknown 2022-0 330 00:00: 00 No Dose Unknown 2022-0 3 00:00: 00 No Dose Unknown 2022-0 330 00:00: 00 No Dose Unknown 2022-0 330 00:00: 00 No Dose Unknown 2022-0 330 00:00: 00 No Dose Unknown 2022-0 330 00:00: 00 No Dose Unknown 2022-0 330 00:00: 00 No Dose Unknown 2022-0 330 00:00: 00 No Dose Unknown 2022-0 330 00:00: 00 No Dose Unknown 2022-0 3 00:00: 00 No Dose Unknown 2022-0 3 00:00: 00 No Dose Unknown 2022-0 330 00:00: 00 No Dose Unknown 2022-0 330 00:00: 00 No Dose Unknown 2022-0 330 00:00: 00 No Dose Unknown 2022-0 330 00:00: 00 No Dose Unknown 2022-0 330 00:00: 00 No Dose Unknown 2022-0 330 00:00: 00 No Dose Unknown 2022-0 330 00:00: 00 No Dose Unknown 2022-0 3 00:00: 00 No Dose Unknown 2022-0 3 00:00: 00 No Dose Unknown 2022-0 330 00:00: 00 No Dose Unknown 2022-0 3-30 00:00: 00 No Dose Unknown 2022-0 3-30 00:00: 00 No Dose Unknown 2022-0 3-30 00:00: 00 No Dose Unknown 2022-0 3-30 00:00: 00 No Dose Unknown 2022-0 3-30 00:00: 00 No Dose Unknown 2022-0 3-30 00:00: 00 No Dose Unknown 2022-0 3-30 00:00: 00 No Dose Unknown 2022-0 330 00:00: 00 No Dose Unknown 2022-0 330 00:00: 00 No Dose Unknown 2022-0 330 00:00: 00 No Dose Unknown 2022-0 330 00:00: 00 No Dose Unknown 2022-0 330 00:00: 00 No Dose Unknown 2022-0 330 00:00: 00 No Dose Unknown 2022-0 330 00:00: 00 No Dose Unknown 2022-0 330 00:00: 00 No Dose Unknown 2022-0 330 00:00: 00 No Dose Unknown 2022-0 330 00:00: 00 No Dose Unknown 2022-0 330 00:00: 00 No Dose Unknown 2022-0 330 00:00: 00 No Dose Unknown 2022-0 330 00:00: 00 No Dose Unknown 2022-0 330 00:00: 00 No Dose Unknown 2022-0 330 00:00: 00 No Dose Unknown 2022-0 330 00:00: 00 No Dose Unknown 2022-0 330 00:00: 00 No Dose Unknown 2022-0 330 00:00: 00 No Dose Unknown 2022-0 330 00:00: 00 No Dose Unknown 2022-0 330 00:00: 00 No Dose Unknown 2022-0 330 00:00: 00 No Dose Unknown 2022-0 330 00:00: 00 No Dose Unknown 2022-0 330 00:00: 00 No Dose Unknown 2022-0 330 00:00: 00 No Dose Unknown 2022-0 330 00:00: 00 No Dose Unknown 2022-0 330 00:00: 00 No Dose Unknown 2022-0 3-30 00:00: 00 No Dose Unknown 2022-0 3-30 00:00: 00 No Dose Unknown 2022-0 3-30 00:00: 00 No Dose Unknown 2022-0 3-30 00:00: 00 No Dose Unknown 2022-0 3-30 00:00: 00 No Dose Unknown 2022-0 3-30 00:00: 00 No Dose Unknown 2022-0 3-30 00:00: 00 No Dose Unknown 2022-0 3-30 00:00: 00 No Dose Unknown 2022-0 3-30 00:00: 00 No Dose Unknown 2022-0 3-30 00:00: 00 No Dose Unknown 2022-0 3-30 00:00: 00 No Dose Unknown 2-0 3-30 00:00: 00 No Dose Unknown 2022-0 3-30 00:00: 00 No Dose Unknown 2022-0 3-07 00:00: 00 No Dose Unknown 2022-0 3-07 00:00: 00 No Dose Unknown 2-0 3-07 00:00: 00 No Dose Unknown 2022-0 3-07 00:00: 00 No albuterol sulfate HFA 90 mcg/actuati on aerosol inhaler 2-0 2-12 00:00: 00 No 12mcg/a ctuatio n albuterol sulfate HFA 90 mcg/actuati on aerosol inhaler 2-0 2-12 00:00: 00 No 12mcg/a ctuatio n albuterol sulfate HFA 90 mcg/actuati on aerosol inhaler 2-0 2-12 00:00: 00 No 12mcg/a ctuatio n albuterol sulfate HFA 90 mcg/actuati on aerosol inhaler 2-0 2-12 00:00: 00 No 12mcg/a ctuatio n pregabalin 300 mg capsule 2-0 2-09 00:00: 00 No 1mg pregabalin 300 mg capsule 2-0 2-09 00:00: 00 No 1mg pregabalin 300 mg capsule 2-0 2-09 00:00: 00 No 1mg pregabalin 300 mg capsule 2-0 2-09 00:00: 00 No 1mg ProAir HFA 90 mcg/actuati on aerosol inhaler 2022-0 1-12 00:00: 00 No 12mcg/a ctuatio n azithromyci n 250 mg tablet 1-12 00:00: 00 No mg prednisone 20 mg tablet -12 00:00: 00 No mg pregabalin 300 mg capsule 0 -12 00:00: 00 No 1mg Bromfed DM 2 mg-30 mg-10 mg/5 mL oral syrup 1-12 00:00: 00 No 5mg/5 mL ipratropium 0.5 mg-albutero l 3 mg (2.5 mg base)/3 mL nebulizatio n soln -12 00:00: 00 No 3mg base)/3 mL ProAir HFA 90 mcg/actuati on aerosol inhaler -12 00:00: 00 No 12mcg/a ctuatio n azithromyci n 250 mg tablet -12 00:00: 00 No mg prednisone 20 mg tablet -12 00:00: 00 No mg ProAir HFA 90 mcg/actuati on aerosol inhaler -12 00:00: 00 No 12mcg/a ctuatio n azithromyci n 250 mg tablet -12 00:00: 00 No mg prednisone 20 mg tablet -12 00:00: 00 No mg pregabalin 300 mg capsule 1-12 00:00: 00 No 1mg Bromfed DM 2 mg-30 mg-10 mg/5 mL oral syrup 1-12 00:00: 00 No 5mg/5 mL ipratropium 0.5 mg-albutero l 3 mg (2.5 mg base)/3 mL nebulizatio n soln 1-12 00:00: 00 No 3mg base)/3 mL pregabalin 300 mg capsule 1-12 00:00: 00 No 1mg Bromfed DM 2 mg-30 mg-10 mg/5 mL oral syrup 0 1-12 00:00: 00 No 5mg/5 mL ipratropium 0.5 mg-albutero l 3 mg (2.5 mg base)/3 mL nebulizatio n soln - 00:00: 00 No 3mg base)/3 mL ProAir HFA 90 mcg/actuati on aerosol inhaler - 00:00: 00 No 12mcg/a ctuatio n azithromyci n 250 mg tablet - 00:00: 00 No mg prednisone 20 mg tablet - 00:00: 00 No mg pregabalin 300 mg capsule 05-30 00:00: 00 No 1mg Bromfed DM 2 mg-30 mg-10 mg/5 mL oral syrup 05-30 00:00: 00 No 5mg/5 mL ipratropium 0.5 mg-albutero l 3 mg (2.5 mg base)/3 mL nebulizatio n soln 05-30 00:00: 00 No 3mg base)/3 mL pregabalin 300 mg capsule 2020-05- 00:00: 00 No 1mg pregabalin 300 mg capsule 2020-05- 00:00: 00 No 1mg pregabalin 300 mg capsule 2020-05 00:00: 00 No 1mg pregabalin 300 mg capsule 2020-05 00:00: 00 No 1mg ProAir HFA 90 mcg/actuati on aerosol inhaler 2020-05 00:00: 00 No 12mcg/a ctuatio n pregabalin 300 mg capsule 2020-05 00:00: 00 No 1mg ProAir HFA 90 mcg/actuati on aerosol inhaler 2020-05 00:00: 00 No 12mcg/a ctuatio n pregabalin 300 mg capsule 2020-05 00:00: 00 No 1mg ProAir HFA 90 mcg/actuati on aerosol inhaler 2020-05 00:00: 00 No 12mcg/a ctuatio n pregabalin 300 mg capsule 2020-05 00:00: 00 No 1mg ProAir HFA 90 mcg/actuati on aerosol inhaler 2020-05 00:00: 00 No 12mcg/a ctuatio n pregabalin 300 mg capsule 2020-0517 00:00: 00 No 1mg gabapentin 600 mg tablet 2020-05 0-05 00:00: 00 No 1mg prednisone 20 mg tablet 2020-05 0-05 00:00: 00 No mg gabapentin 300 mg capsule 2020-05 0-05 00:00: 00 No 1mg gabapentin 600 mg tablet 2020-05 0-05 00:00: 00 No 1mg prednisone 20 mg tablet 2020-05 0-05 00:00: 00 No mg gabapentin 300 mg capsule 2020-05 0-05 00:00: 00 No 1mg gabapentin 600 mg tablet 2020-05 0-05 00:00: 00 No 1mg prednisone 20 mg tablet 2020-05 0-05 00:00: 00 No mg gabapentin 300 mg capsule 2020-05 0-05 00:00: 00 No 1mg gabapentin 600 mg tablet 2020-05 0-05 00:00: 00 No 1mg prednisone 20 mg tablet 2020-05 0-05 00:00: 00 No mg gabapentin 300 mg capsule 2020-05 0-05 00:00: 00 No 1mg ProAir HFA 90 mcg/actuati on aerosol inhaler 12-22 00:00: 00 No 12mcg/a ctuatio n ProAir HFA 90 mcg/actuati on aerosol inhaler 12-22 00:00: 00 No 12mcg/a ctuatio n amoxicillin 875 mg-potassiu m clavulanate 125 mg tablet 12-22 00:00: 00 No 1mg Dose Unknown 12-22 00:00: 00 No gabapentin 600 mg tablet 8 00:00: 00 No 1mg gabapentin 600 mg tablet 8- 00:00: 00 No 1mg prednisone 20 mg tablet - 00:00: 00 No mg prednisone 20 mg tablet 8 00:00: 00 No mg gabapentin 300 mg capsule 8- 00:00: 00 No 1mg gabapentin 300 mg capsule 8- 00:00: 00 No 1mg ProAir HFA 90 mcg/actuati on aerosol inhaler 8 00:00: 00 No 12mcg/a ctuatio n ProAir HFA 90 mcg/actuati on aerosol inhaler 12-22 00:00: 00 No 12mcg/a ctuatio n amoxicillin 875 mg-potassiu m clavulanate 125 mg tablet 8- 00:00: 00 No 1mg Dose Unknown 8 00:00: 00 No gabapentin 600 mg tablet 8 00:00: 00 No 1mg gabapentin 600 mg tablet 8 00:00: 00 No 1mg prednisone 20 mg tablet 8 00:00: 00 No mg prednisone 20 mg tablet 12-22 00:00: 00 No mg gabapentin 300 mg capsule 8 00:00: 00 No 1mg gabapentin 300 mg capsule 8 00:00: 00 No 1mg ProAir HFA 90 mcg/actuati on aerosol inhaler 12-22 00:00: 00 No 12mcg/a ctuatio n ProAir HFA 90 mcg/actuati on aerosol inhaler 12-22 00:00: 00 No 12mcg/a ctuatio n amoxicillin 875 mg-potassiu m clavulanate 125 mg tablet 12-22 00:00: 00 No 1mg Dose Unknown 12-22 00:00: 00 No gabapentin 600 mg tablet 8 00:00: 00 No 1mg gabapentin 600 mg tablet 8 00:00: 00 No 1mg prednisone 20 mg tablet 12-22 00:00: 00 No mg prednisone 20 mg tablet 8 00:00: 00 No mg gabapentin 300 mg capsule 8- 00:00: 00 No 1mg gabapentin 300 mg capsule 8- 00:00: 00 No 1mg ProAir HFA 90 mcg/actuati on aerosol inhaler 8- 00:00: 00 No 12mcg/a ctuatio n ProAir HFA 90 mcg/actuati on aerosol inhaler 12-22 00:00: 00 No 12mcg/a ctuatio n amoxicillin 875 mg-potassiu m clavulanate 125 mg tablet 12-22 00:00: 00 No 1mg Dose Unknown 12-22 00:00: 00 No gabapentin 600 mg tablet 12-22 00:00: 00 No 1mg gabapentin 600 mg tablet 12-22 00:00: 00 No 1mg prednisone 20 mg tablet 12-22 00:00: 00 No mg prednisone 20 mg tablet 12-22 00:00: 00 No mg gabapentin 300 mg capsule 12-22 00:00: 00 No 1mg gabapentin 300 mg capsule 12-22 00:00: 00 No 1mg gabapentin 600 mg tablet 10-05 00:00: 00 No 1mg gabapentin 300 mg capsule 10-05 00:00: 00 No 1mg gabapentin 600 mg tablet 10-05 00:00: 00 No 1mg gabapentin 300 mg capsule 10-05 00:00: 00 No 1mg gabapentin 600 mg tablet 10-05 00:00: 00 No 1mg gabapentin 300 mg capsule 10-05 00:00: 00 No 1mg gabapentin 600 mg tablet 10-05 00:00: 00 No 1mg gabapentin 300 mg capsule 10-05 00:00: 00 No 1mg gabapentin 600 mg tablet 07-11 00:00: 00 No 1mg prednisone 20 mg tablet 07-11 00:00: 00 No mg gabapentin 300 mg capsule 07-11 00:00: 00 No 1mg ipratropium 0.5 mg-albutero l 3 mg (2.5 mg base)/3 mL nebulizatio n soln 07-11 00:00: 00 No 3mg base)/3 mL gabapentin 600 mg tablet 07-11 00:00: 00 No 1mg prednisone 20 mg tablet 07-11 00:00: 00 No mg gabapentin 300 mg capsule 07-11 00:00: 00 No 1mg ipratropium 0.5 mg-albutero l 3 mg (2.5 mg base)/3 mL nebulizatio n soln 07-11 00:00: 00 No 3mg base)/3 mL gabapentin 600 mg tablet 07-11 00:00: 00 No 1mg prednisone 20 mg tablet 07-11 00:00: 00 No mg gabapentin 300 mg capsule 07-11 00:00: 00 No 1mg ipratropium 0.5 mg-albutero l 3 mg (2.5 mg base)/3 mL nebulizatio n soln 07-11 00:00: 00 No 3mg base)/3 mL gabapentin 600 mg tablet 07-11 00:00: 00 No 1mg prednisone 20 mg tablet 07-11 00:00: 00 No mg gabapentin 300 mg capsule 07-11 00:00: 00 No 1mg ipratropium 0.5 mg-albutero l 3 mg (2.5 mg base)/3 mL nebulizatio n soln 07-11 00:00: 00 No 3mg base)/3 mL amoxicillin 875 mg-potassiu m clavulanate 125 mg tablet 06-01 00:00: 00 No 1mg amoxicillin 875 mg-potassiu m clavulanate 125 mg tablet 06-01 00:00: 00 No 1mg amoxicillin 875 mg-potassiu m clavulanate 125 mg tablet 06-01 00:00: 00 No 1mg amoxicillin 875 mg-potassiu m clavulanate 125 mg tablet 06-01 00:00: 00 No 1mg ProAir HFA 90 mcg/actuati on aerosol inhaler 05-22 00:00: 00 No 12mcg/a ctuatio n Combivent Respimat 20 mcg-100 mcg/actuati on solution for inhalation - 00:00: 00 No 1mcg/ac tuation prednisone 20 mg tablet 05-22 00:00: 00 No mg ipratropium 0.5 mg-albutero l 3 mg (2.5 mg base)/3 mL nebulizatio n soln - 00:00: 00 No 3mg base)/3 mL ProAir HFA 90 mcg/actuati on aerosol inhaler - 00:00: 00 No 12mcg/a ctuatio n Combivent Respimat 20 mcg-100 mcg/actuati on solution for inhalation - 00:00: 00 No 1mcg/ac tuation prednisone 20 mg tablet - 00:00: 00 No mg ipratropium 0.5 mg-albutero l 3 mg (2.5 mg base)/3 mL nebulizatio n soln 05-22 00:00: 00 No 3mg base)/3 mL ProAir HFA 90 mcg/actuati on aerosol inhaler - 00:00: 00 No 12mcg/a ctuatio n Combivent Respimat 20 mcg-100 mcg/actuati on solution for inhalation 05-22 00:00: 00 No 1mcg/ac tuation prednisone 20 mg tablet - 00:00: 00 No mg ipratropium 0.5 mg-albutero l 3 mg (2.5 mg base)/3 mL nebulizatio n soln 05-22 00:00: 00 No 3mg base)/3 mL ProAir HFA 90 mcg/actuati on aerosol inhaler - 00:00: 00 No 12mcg/a ctuatio n Combivent Respimat 20 mcg-100 mcg/actuati on solution for inhalation - 00:00: 00 No 1mcg/ac tuation prednisone 20 mg tablet - 00:00: 00 No mg ipratropium 0.5 mg-albutero l 3 mg (2.5 mg base)/3 mL nebulizatio n soln - 00:00: 00 No 3mg base)/3 mL ProAir HFA 90 mcg/actuati on aerosol inhaler 2019-05-24 00:00: 00 No 12mcg/a ctuatio n ProAir HFA 90 mcg/actuati on aerosol inhaler 2019-05 00:00: 00 No 12mcg/a ctuatio n ProAir HFA 90 mcg/actuati on aerosol inhaler 2019-05 00:00: 00 No 12mcg/a ctuatio n ProAir HFA 90 mcg/actuati on aerosol inhaler 2019-05 00:00: 00 No 12mcg/a ctuatio n ProAir RespiClick 90 mcg/actuati on breath activated 2019-05 00:00: 00 No 1mcg/ac tuation gabapentin 600 mg tablet 2019-05 00:00: 00 No 1mg gabapentin 300 mg capsule 2019-05 00:00: 00 No 1mg ProAir RespiClick 90 mcg/actuati on breath activated 2019-05 00:00: 00 No 1mcg/ac tuation gabapentin 600 mg tablet 2019-05 00:00: 00 No 1mg gabapentin 300 mg capsule 2019-05 00:00: 00 No 1mg ProAir RespiClick 90 mcg/actuati on breath activated 2019-05 00:00: 00 No 1mcg/ac tuation gabapentin 600 mg tablet 2019-05 00:00: 00 No 1mg gabapentin 300 mg capsule 2019-05 00:00: 00 No 1mg ProAir RespiClick 90 mcg/actuati on breath activated 2019-05 00:00: 00 No 1mcg/ac tuation gabapentin 600 mg tablet 2019-05 00:00: 00 No 1mg gabapentin 300 mg capsule 2019-05 00:00: 00 No 1mg Combivent Respimat 20 mcg-100 mcg/actuati on solution for inhalation 01-19 00:00: 00 No 1mcg/ac tuation Advair Diskus 250 mcg-50 mcg/dose powder for inhalation 01-19 00:00: 00 No 1mcg/do se Advair Diskus 250 mcg-50 mcg/dose powder for inhalation 01-19 00:00: 00 No 1mcg/do se gabapentin 600 mg tablet 01-19 00:00: 00 No 1mg gabapentin 300 mg capsule 0 01-19 00:00: 00 No 1mg albuterol sulfate 1.25 mg/3 mL solution for nebulizatio n 0 01-19 00:00: 00 No 3mg/3 mL ProAir RespiClick 90 mcg/actuati on breath activated 0 01-19 00:00: 00 No 1mcg/ac tuation Combivent Respimat 20 mcg-100 mcg/actuati on solution for inhalation 0 01-19 00:00: 00 No 1mcg/ac tuation Advair Diskus 250 mcg-50 mcg/dose powder for inhalation 0 01-19 00:00: 00 No 1mcg/do se Advair Diskus 250 mcg-50 mcg/dose powder for inhalation 01-19 00:00: 00 No 1mcg/do se gabapentin 600 mg tablet 01-19 00:00: 00 No 1mg gabapentin 300 mg capsule 01-19 00:00: 00 No 1mg albuterol sulfate 1.25 mg/3 mL solution for nebulizatio n 01-19 00:00: 00 No 3mg/3 mL ProAir RespiClick 90 mcg/actuati on breath activated 01-19 00:00: 00 No 1mcg/ac tuation Combivent Respimat 20 mcg-100 mcg/actuati on solution for inhalation 01-19 00:00: 00 No 1mcg/ac tuation Advair Diskus 250 mcg-50 mcg/dose powder for inhalation 0 01-19 00:00: 00 No 1mcg/do se Advair Diskus 250 mcg-50 mcg/dose powder for inhalation 0 01-19 00:00: 00 No 1mcg/do se gabapentin 600 mg tablet - 00:00: 00 No 1mg gabapentin 300 mg capsule - 00:00: 00 No 1mg albuterol sulfate 1.25 mg/3 mL solution for nebulizatio n 0 01-19 00:00: 00 No 3mg/3 mL ProAir RespiClick 90 mcg/actuati on breath activated 0 - 00:00: 00 No 1mcg/ac tuation Combivent Respimat 20 mcg-100 mcg/actuati on solution for inhalation 01-19 00:00: 00 No 1mcg/ac tuation Advair Diskus 250 mcg-50 mcg/dose powder for inhalation 01-19 00:00: 00 No 1mcg/do se Advair Diskus 250 mcg-50 mcg/dose powder for inhalation 01-19 00:00: 00 No 1mcg/do se gabapentin 600 mg tablet 01-19 00:00: 00 No 1mg gabapentin 300 mg capsule 01-19 00:00: 00 No 1mg albuterol sulfate 1.25 mg/3 mL solution for nebulizatio n 01-19 00:00: 00 No 3mg/3 mL ProAir RespiClick 90 mcg/actuati on breath activated 01-19 00:00: 00 No 1mcg/ac tuation gabapentin 600 mg tablet 12-30 00:00: 00 No 1mg gabapentin 600 mg tablet 14 00:00: 00 No 1mg gabapentin 600 mg tablet 14 00:00: 00 No 1mg gabapentin 600 mg tablet 14 00:00: 00 No 1mg gabapentin 300 mg capsule 12-19 00:00: 00 No 1mg gabapentin 300 mg capsule 12-19 00:00: 00 No 1mg gabapentin 300 mg capsule 12-19 00:00: 00 No 1mg gabapentin 300 mg capsule 12-19 00:00: 00 No 1mg gabapentin 600 mg tablet 15 00:00: 00 No 1mg gabapentin 600 mg tablet 15 00:00: 00 No 1mg gabapentin 600 mg tablet 15 00:00: 00 No 1mg gabapentin 600 mg tablet 15 00:00: 00 No 1mg amoxicillin 500 mg tablet 05 00:00: 00 No 1mg prednisone 20 mg tablet 305 00:00: 00 No 1mg amoxicillin 500 mg tablet 305 00:00: 00 No 1mg amoxicillin 500 mg tablet 305 00:00: 00 No 1mg prednisone 20 mg tablet 05 00:00: 00 No 1mg prednisone 20 mg tablet 07-21 00:00: 00 No 1mg amoxicillin 500 mg tablet 07-21 00:00: 00 No 1mg prednisone 20 mg tablet 07-21 00:00: 00 No 1mg Vital Signs Vital Name Observation Time Observation Value Comments Biju hazel Systolic blood pressure 2022-10-07 20:05:00 133 mm[Hg] [facility] Diastolic blood pressure 2022-10-07 20:05:00 70 mm[Hg] [facility] Heart rate 2022-10-07 20:05:00 96 /min [facility] Body height 2022-10-07 20:05:00 152.4 cm [facility] Body weight 2022-10-07 20:05:00 69.854 kg [facility] BMI 2022-10-07 20:05:00 30.08 kg/m2 [facility] BP Systolic 2022-03-26 10:04:00 148 mm[Hg] BP [...] 16.00 /min Procedures Procedure Date / Time Performed Performing Clinician Source EXTERNAL PROVIDER RECORDS 2022-10-21 05:01:00 Doctor Unassigned, Luana [facility] RADIOLOGY DOCUMENTATION 2022-10-11 05:01:00 Doct or Unassigned, Luana [facility] MEDICAL RELEASE/CLEARANCE FORMS 2022-10-09 05:01:00 Doctor Unassigned, Luana [facility] Plan of Care Planned Activity Planned Date Details Comments Source Goal Plan of Care Note [code = 35801-2] Goal Plan of Care Note [code = 84595-1] Goal Plan of Care Note [code = 50469-8] Goal Plan of Care Note [code = 83571-8] Goal Plan of Care Note [code = 77370-8] Goal Plan of Care Note [code = 01294-3] Goal Plan of Care Note [code = 07568-1] Goal Plan of Care Note [code = 45822-6] Goal Plan of Care Note [code = 69577-8] Goal Plan of Care Note [code = 67174-6] Goal Plan of Care Note [code = 62071-9] Goal Plan of Care Note [code = 57346-2] Goal Plan of Care Note [code = 68521-0] Goal Plan of Care Note [code = 90526-3] Goal Plan of Care Note [code = 50329-1] Goal Plan of Care Note [code = 80117-5] Goal Plan of Care Note [code = 50692-5] Goal Plan of Care Note [code = 75877-9] Goal Plan of Care Note [code = 56182-9] Goal Plan of Care Note [code = 68770-2] Goal Plan of Care Note [code = 57275-4] Goal Plan of Care Note [code = 91564-9] Goal Plan of Care Note [code = 03546-4] Goal Plan of Care Note [code = 09602-6] Goal Plan of Care Note [code = 21677-5] Goal Plan of Care Note [code = 19412-1] Goal Plan of Care Note [code = 76535-3] Goal Plan of Care Note [code = 19964-6] Goal Plan of Care Note [code = 02564-1] Goal Plan of Care Note [code = 19190-2] Goal Plan of Care Note [code = 58707-2] Goal Plan of Care Note [code = 55883-2] Goal Plan of Care Note [code = 33284-0] Goal Plan of Care Note [code = 48130-8] Goal Plan of Care Note [code = 45673-7] Goal Plan of Care Note [code = 01149-9] Goal Plan of Care Note [code = 01569-3] Goal Plan of Care Note [code = 37514-9] Goal Plan of Care Note [code = 73358-0] Goal Plan of Care Note [code = 59107-2] Goal Plan of Care Note [code = 06291-2] Goal Plan of Care Note [code = 20417-5] Goal Plan of Care Note [code = 49413-9] Goal Plan of Care Note [code = 98006-3] Goal Plan of Care Note [code = 54849-0] Goal Plan of Care Note [code = 97656-6] Goal Plan of Care Note [code = 77291-6] Goal Plan of Care Note [code = 60835-9] Goal Plan of Care Note [code = 91333-2] Goal Plan of Care Note [code = 48818-8] Goal Plan of Care Note [code = 60261-9] Goal Plan of Care Note [code = 54495-0] Goal Plan of Care Note [code = 73792-4] Goal Plan of Care Note [code = 32460-8] Goal Plan of Care Note [code = 59983-9] Goal Plan of Care Note [code = 40740-4] Goal Plan of Care Note [code = 52248-2] Goal Plan of Care Note [code = 32938-7] Goal Plan of Care Note [code = 21411-1] Goal Plan of Care Note [code = 61021-7] Goal Plan of Care Note [code = 32436-3] Goal Plan of Care Note [code = 22966-6] Goal Plan of Care Note [code = 27020-0] Goal Plan of Care Note [code = 38094-3] Goal Plan of Care Note [code = 31274-0] Goal Plan of Care Note [code = 75606-2] Goal Plan of Care Note [code = 88850-3] Goal Plan of Care Note [code = 62481-4] Goal Plan of Care Note [code = 35444-2] Goal Plan of Care Note [code = 13519-8] Goal Plan of Care Note [code = 31851-0] Goal Plan of Care Note [code = 80281-8] Goal Plan of Care Note [code = 94043-0] Goal Plan of Care Note [code = 38137-5] Goal Plan of Care Note [code = 32985-5] Goal Plan of Care Note [code = 81095-5] Goal Plan of Care Note [code = 94867-3] Goal Plan of Care Note [code = 22531-9] Goal Plan of Care Note [code = 03666-1] Goal Plan of Care Note [code = 90642-3] Goal Plan of Care Note [code = 22415-8] Goal Plan of Care Note [code = 74166-4] Goal Plan of Care Note [code = 94030-5] Encounters Start Date/Time End Date/Time Encounter Type Admission Type Attending [facility] Care Department Encounter ID Source 2023-04-28 14:22:48 2023-04-28 14:22:48 Outpatient [facility] [id number] Jaden Ponce 2023-03-19 16:04:06 2023-03-19 16:04:06 Outpatient [facility] [id number] Jaden Betancourt Kris 2023-02-27 13:54:38 2023-02-27 13:54:38 Outpatient [facility] [id number] Jaden Ponce 2023-02-18 14:41:08 2023-02-18 14:41:08 Outpatient [facility] [id number] Jaden Betancourt Kris 2023-01-30 17:52:20 2023-01-30 17:52:20 Outpatient [facility] [id number] Jaden Ponce 2023-01-14 12:11:29 2023-01-14 12:11:29 Outpatient [facility] [id number] Jaden Betancourt Kris 2022-12-11 17:36:37 2022-12-11 17:36:37 Outpatient [facility] [id number] Jaden Ponce 2022-10-21 00:00:00 2022-10-21 00:00:00 Orders Only Doctor Unassigned, Luana [facility] 1.2.840.114 350.1.13.10 4.2.7.2.686 [id number] [facility] 2022-10-15 00:00:00 2022-10-15 00:00:00 Telephone Maegan Denny [facility] 1.2.840.114 350.1.13.10 4.2.7.2.686 [id number] [facility] 2022-10-11 00:00:00 2022-10-11 00:00:00 Orders Only Doctor Unassigned, Luana [facility] 1.2.840.114 350.1.13.10 4.2.7.2.686 [id number] [facility] 2022-10-11 00:00:00 2022-10-11 00:00:00 Telephone Maegan Denny [facility] 1.2.840.114 350.1.13.10 4.2.7.2.686 [id number] [facility] 2022-10-09 00:00:00 2022-10-09 00:00:00 Orders Only Doctor Unassigned, Luana [facility] 1.2.840.114 350.1.13.10 4.2.7.2.686 [id number] [facility] 2022-10-09 00:00:00 2022-10-09 00:00:00 Telephone Maegan Denny [facility] MEDICAL OFFICE [facility] 1.2.840.114 350.1.13.10 4.2.7.2.686 [id number] [facility] 2022-10-07 14:30:00 2022-10-07 16:47:40 Outpatient R MAEGAN [facility] [id number] [facility] 2022-10-07 14:30:00 2022-10-07 16:47:40 Office Visit Maegan Denny [facility] 1.2.840.114 350.1.13.10 4.2.7.2.686 [id number] [facility] 2022-10-07 00:00:00 2022-10-07 00:00:00 Telephone Maegan Denny [facility] 1.2.840.114 350.1.13.10 4.2.7.2.686 [id number] [facility] 2022-10-02 00:00:00 2022-10-02 00:00:00 Telephone Maegan Denny [facility] 1.2.840.114 350.1.13.10 4.2.7.2.686 [id number] [facility] 2022-08-20 13:43:24 2022-08-20 13:43:24 Outpatient [facility] [id number] Jaden Betancourt Kris 2022-05-29 14:07:16 2022-05-29 14:07:16 Outpatient [facility] [id number] Jaden Ponce 2022-04-30 15:19:29 2022-04-30 15:19:29 Outpatient [facility] 1213 Jaden Betancourt Kris 2022-04-30 00:00:00 2022-04-30 00:00:00 Outpatient Visit [id number] 2022-03-27 00:00:00 2022-03-27 00:00:00 Outpatient DMG DMG [id number] [facility] 2022-03-26 09:54:48 2022-03-26 09:54:48 Outpatient [facility] [id number] Jadenluna Ponce 2022-03-26 00:00:00 2022-03-26 00:00:00 Outpatient Visit [id number] 2022-02-25 11:04:30 2022-02-25 11:04:30 Outpatient [facility] [id number] Jdaen Ponce 2022-02-25 00:00:00 2022-02-25 00:00:00 Outpatient Visit [id number] 2021-11-30 00:00:00 2021-11-30 00:00:00 Outpatient Visit [id number] 2021-11-27 04:42:00 2021-11-27 04:42:00 [facility] [id number] Program Results Test Description Test Time Test Comments Results Result Co mments Source COMPREHENSIVE METABOLIC [id number] 06:45:40* Test Item Value Reference Range Interpretation Comme nts GLUCOSE (test code = 2217) 185 MG/DL 70-99 H BUN (test code = 2208) 10 MG/DL 8-23 CREATININE (test code = 2214) 0.55 MG/DL 0.60-1.30 L eGFR (2020 CKD-EPI) (test code = 61325) 101 ML/MIN/1.73 >60 CALC BUN/CREAT (test code = 2235) 18 RATIO 6-28 SODIUM (test code = 2231) 134 MEQ/L 133-146 POTASSIUM (test code = 2228) 3.5 MEQ/L 3.5-5.4 CHLORIDE (test code = 2215) 94 MEQ/L 95-107 L CARBON DIOXIDE (test code = 2206) 23 MEQ/L 19-31 CALCIUM (test code = 9) 10.0 MG/DL 8.5-10.5 PROTEIN, TOTAL (test code = 2229) 7.2 G/DL 6.1-8.3 ALBUMIN (test code = 2201) 4.8 G/DL 3.5-5.2 CALC GLOBULIN (test code = 2240) 2.4 G/DL 1.9-3.7 CALC A/G RATIO (test code = 223) 2.0 RATIO 1.0-2.6 BILIRUBIN, TOTAL (test code = 7) 0.2 MG/DL See_Comment [Automated me ssage] The system which generated this result transmitted reference range: <=1.2. The reference range was not used to interpret this result as normal/abnormal. ALKALINE PHOSPHATASE (test code = 2204) 101 U/L 40-142 AST (test code = 2218) 15 U/L 9-40 ALT (test code = 2219) 17 U/L 5-40 [facility] has impo rtant pathology staff changes effective 07/17/2022. New pathology staff will provide uninterrupted, excellent patient care and clinical consultation. See URL: [email or web address] UNLESS OTHERWISE INDICATED, ALL TESTING PERFORMED AT [facility] [address] [place] [address] TOOL DISPATCHER: JOEY SILVA M.D. CLIA NUMBER [id number] [facility] [place] [id number] HEMOGLOBIN [id number] 03:45:25* Test Item Value Reference Range Interpretation Comme nts HEMOGLOBIN A1c (test code = 50997) 6.1 % 4.2-5.6 H [employer] GUIDELINES FOR HGB A1C: PREDIABETES/INCREASED RISK . . . . . . . 5.7-6.4% DIAGNOSIS OF DIABETES . . . . . . . . . >=6.5% WITH CONFIRMATION OR APPROPRIATE SYMPTOMS NOTE: ASSAY MAY BE AFFECTED BY HEMOGLOBINOPATHIES (SICKLE CELL ANEMIA, S-C DISEASE, OTHERS) OR ARTIFICIALLY LOWERED BY DECREASED RED CELL SURVIVAL (HEMOLYTIC ANEMIAS, BLOOD LOSS, ETC.). CONSIDER ALTERNATE TESTING OR LABORATORY CONSULTATION. CBC W/AUTO DIFF WITH [id number] 02:39:50* Test Item Value Reference Range Interpretation Comme nts WBC (test code = 1001) 9.6 K/UL 3.5-11.0 RBC (test code = 1002) 4.83 M/UL 3.80-5.40 HEMOGLOBIN (test code = 1003) 15.4 G/DL 11.5-15.5 HEMATOCRIT (test code = 1004) 43.8 % 34.0-45.0 MCV (test code = 1005) 90.7 fL 80.0-99.0 MCH (test code = 1006) 31.9 PG 25.0-33.0 MCHC (test code = 1007) 35.2 G/DL 31.0-36.0 RDW (test code = 1038) 13.2 % 11.5-15.0 NEUTROPHILS (test code = 1008) 81.8 % LYMPHOCYTES (test code = 1010) 13.9 % MONOCYTES (test code = 1011) 1.8 % EOSINOPHILS (test code = 1012) 0.0 % BASOPHILS (test code = 1013) 0.9 % IMMATURE GRANULOCYTES (test code = 1036) 1.6 % NUCLEATED RBCS (test code = 1065) 0.0 /100 WBC'S See_Comment [Automated messa ge] The system which generated this result transmitted reference range: 0.0. The reference range was not used to interpret this result as normal/abnormal. PLATELET COUNT (test code = 1015) 302 K/UL 130-400 ABSOLUTE NEUTROPHILS (test code = 1066) 7.85 K/UL 1.50-7.50 H ABSOLUTE LYMPHOCYTES (test code = 1067) 1.33 K/UL 1.00-4.00 ABSOLUTE MONOCYTES (test code = 1068) 0.17 K/UL 0.20-1.00 L ABSOLUTE EOSINOPHILS (test code = 1040) 0.00 K/UL 0.00-0.50 ABSOLUTE BASOPHILS (test code = 1069) 0.09 K/UL 0.00-0.20 ABS IMMATURE GRANULOCYTES (test code = 1020) 0.15 K/UL 0.00-0.10 H ABS NUCLEATED RBCS (test code = 07867) 0.00 K/UL 0.00-0.11 OCCULT BLD,FECAL,IMMUNOASSAY [id number] 15:52:05* Test Item Value Reference Range Interpretation Comme nts OCCULT BLD, FECAL (test code = 01234) NEGATIVE NEGATIVE [facility] has important pathology staff changes effective 07/17/2022. New pathology staff will provide uninterrupted, excellent patient care and clinical consultation. See URL: [email or web address]. UNLESS OTHERWISE INDICATED, ALL TESTING PERFORMED AT [facility] [address] [place] [address] CLIA: [id number], CAP: [id number] TSH, THIRD [id number] 06:49:25* Test Item Value Reference Range Interpretation Comme nts TSH, THIRD GENERATION (test code = 2821) 1.600 UIU/ML 0.400-4.100 [id number] 06:45:12* Test Item Value Reference Range Interpretation Comme nts NT-proBNP (test code = 49782) <50 PG/ML SEE BELOW If NT-ProBNP is less than 300 PG/ML, heart failure is unlikely for allages. Age.................Heart Failure Likely <50 Years...........>=450 PG/ML 50-75 Years.........>=900 PG/ML > 75 Years..........>=1800 PG/ML Methodology: [email or web address]chemil[employer] Immunoassay UNLESS OTHERWISE INDICATED, [facility] [address] [place] [id number] TOOL DISPATCHER: ELIAS ESPANA M.D. CLIA NUMBER [id number] [place]. [id number] COMPREHENSIVE METABOLIC [id number] 04:56:47* Test Item Value Reference Range Interpretation Comme nts GLUCOSE (test code = 2217) 137 MG/DL 70-99 H BUN (test code = 2208) 12 MG/DL 8-23 CREATININE (test code = 2214) 0.60 MG/DL 0.60-1.30 eGFR (2020 CKD-EPI) (test code = 79751) 99 ML/MIN/1.73 >60 CALC BUN/CREAT (test code = 2235) 20 RATIO 6-28 SODIUM (test code = 2231) 143 MEQ/L 133-146 POTASSIUM (test code = 2228) 4.3 MEQ/L 3.5-5.4 CHLORIDE (test code = 2214) 105 MEQ/L 95-107 CARBON DIOXIDE (test code = 2205) 25 MEQ/L 19-31 CALCIUM (test code = 2208) 9.6 MG/DL 8.5-10.5 PROTEIN, TOTAL (test code = 2228) 6.8 G/DL 6.1-8.3 ALBUMIN (test code = 2200) 4.5 G/DL 3.5-5.2 CALC GLOBULIN (test code = 0) 2.3 G/DL 1.9-3.7 CALC A/G RATIO (test code = 2233) 2.0 RATIO 1.0-2.6 BILIRUBIN, TOTAL (test code = 2206) 0.2 MG/DL See_Comment [Automated me ssage] The system which generated this result transmitted reference range: <=1.2. The reference range was not used to interpret this result as normal/abnormal. ALKALINE PHOSPHATASE (test code = 2203) 128 U/L 40-142 AST (test code = 2217) 15 U/L 9-40 ALT (test code = 2218) 11 U/L 5-40 LIPID [id number] 04:56:47* Test Item Value Reference Range Interpretation Comme nts CHOLESTEROL (test code = 0) 236 MG/DL <200 H TRIGLYCERIDES (test code = 2231) 274 MG/DL <150 H HDL CHOLESTEROL (test code = 2219) 54 MG/DL >39 CALC LDL CHOL (test code = 2236) 140 MG/DL <100 H NOTE: CALCULATED LDL IS BASED ON ADRIAN[employer] METHOD WHICHINCLUDES ADJUSTABLE TRIGLYCERIDE:VLDL CHOLESTEROL RATIO.THIS FACTOR VARIES BY MEASURED TRIGLYCERIDE AND NON-HDLCHOLESTEROL CONCENTRATIONS WITH INCREASED CALCULATED LDL SEENIN HIGHER TRIGLYCERIDE OR LOWER NON-HDL SPECIMENS. FOR MOREINFORMATION, SEE CLIENT ANNOUNCEMENT AT [email or web address] RISK RATIO LDL/HDL (test code = 2237) 2.59 RATIO <3.22 HEMOGLOBIN [id number] 04:00:46* Test Item Value Reference Range Interpretation Comme nts HEMOGLOBIN A1c (test code = 76245) 5.9 % 4.2-5.6 H CBC W/AUTO DIFF WITH [id number] 02:37:32* Test Item Value Reference Range Interpretation Comme nts WBC (test code = 1001) 5.9 K/UL 3.5-11.0 RBC (test code = 1002) 5.06 M/UL 3.80-5.40 HEMOGLOBIN (test code = 1003) 15.6 G/DL 11.5-15.5 H HEMATOCRIT (test code = 1004) 46.7 % 34.0-45.0 H MCV (test code = 1005) 92.3 fL 80.0-99.0 MCH (test code = 1006) 30.8 PG 25.0-33.0 MCHC (test code = 1007) 33.4 G/DL 31.0-36.0 RDW (test code = 1038) 13.5 % 11.5-15.0 NEUTROPHILS (test code = 1008) 63.0 % LYMPHOCYTES (test code = 1010) 27.6 % MONOCYTES (test code = 1011) 5.4 % EOSINOPHILS (test code = 1012) 2.0 % BASOPHILS (test code = 1013) 1.2 % IMMATURE GRANULOCYTES (test code = 1036) 0.8 % NUCLEATED RBCS (test code = 1065) 0.0 /100 WBC'S See_Comment [Automated messa ge] The system which generated this result transmitted reference range: 0.0. The reference range was not used to interpret this result as normal/abnormal. PLATELET COUNT (test code = 1015) 198 K/UL 130-400 ABSOLUTE NEUTROPHILS (test code = 1066) 3.74 K/UL 1.50-7.50 ABSOLUTE LYMPHOCYTES (test code = 1067) 1.64 K/UL 1.00-4.00 ABSOLUTE MONOCYTES (test code = 1068) 0.32 K/UL 0.20-1.00 ABSOLUTE EOSINOPHILS (test code = 1040) 0.12 K/UL 0.00-0.50 ABSOLUTE BASOPHILS (test code = 1069) 0.07 K/UL 0.00-0.20 ABS IMMATURE GRANULOCYTES (test code = 1020) 0.05 K/UL 0.00-0.10 ABS NUCLEATED RBCS (test code = 03259) 0.00 K/UL 0.00-0.11 HEMOGLOBIN [id number] 00:00:00* Test Item Value Reference Range Interpretation Comme nts HEMOGLOBIN A1c (test code = 49333) 5.9 % HEMOGLOBIN [id number] 00:00:00* Test Item Value Reference Range Interpretation Comme nts HEMOGLOBIN A1c (test code = 12121) 5.9 % HEMOGLOBIN [id number] 00:00:00* Test Item Value Reference Range Interpretation Comme nts HEMOGLOBIN A1c (test code = 68572) 5.9 % CBC W/AUTO [id number] 00:00:00* Test Item Value Reference Range Interpretation Comme nts WBC (test code = 1001) 5.9 K/UL [...] = 1013) 1.2 % IMMATURE GRANULOCYTES (test code = 1036) 0.8 % NUCLEATED RBCS (test code = 1065) 0.0 /100WBC'S PLATELET COUNT (test code = 1015) 198 K/UL ABSOLUTE NEUTROPHILS (test c ode = 1066) 3.74 K/UL ABSOLUTE LYMPHOCYTES (test c ode = 1067) 1.64 K/UL ABSOLUTE MONOCYTES (test cod e = 1068) 0.32 K/UL ABSOLUTE EOSINOPHILS (test c ode = 1040) 0.12 K/UL ABSOLUTE BASOPHILS (test cod e = 1069) 0.07 K/UL ABS IMMATURE GRANULOCYTES (t est code = 1020) 0.05 K/UL ABS NUCLEATED RBCS (test cod e = 91957) 0.00 K/UL CBC W/AUTO [id number] 00:00:00* Test Item Value Reference Range Interpretation Comme nts WBC (test code = 1001) 5.9 K/UL [...] = 1013) 1.2 % IMMATURE GRANULOCYTES (test code = 1036) 0.8 % NUCLEATED RBCS (test code = 1065) 0.0 /100WBC'S PLATELET COUNT (test code = 1015) 198 K/UL ABSOLUTE NEUTROPHILS (test c ode = 1066) 3.74 K/UL ABSOLUTE LYMPHOCYTES (test c ode = 1067) 1.64 K/UL ABSOLUTE MONOCYTES (test cod e = 1068) 0.32 K/UL ABSOLUTE EOSINOPHILS (test c ode = 1040) 0.12 K/UL ABSOLUTE BASOPHILS (test cod e = 1069) 0.07 K/UL ABS IMMATURE GRANULOCYTES (t est code = 1020) 0.05 K/UL ABS NUCLEATED RBCS (test cod e = 93401) 0.00 K/UL CBC W/AUTO [id number] 00:00:00* Test Item Value Reference Range Interpretation Comme nts WBC (test code = 1001) 5.9 K/UL [...] = 1013) 1.2 % IMMATURE GRANULOCYTES (test code = 1036) 0.8 % NUCLEATED RBCS (test code = 1065) 0.0 /100WBC'S PLATELET COUNT (test code = 1015) 198 K/UL ABSOLUTE NEUTROPHILS (test c ode = 1066) 3.74 K/UL ABSOLUTE LYMPHOCYTES (test c ode = 1067) 1.64 K/UL ABSOLUTE MONOCYTES (test cod e = 1068) 0.32 K/UL ABSOLUTE EOSINOPHILS (test c ode = 1040) 0.12 K/UL ABSOLUTE BASOPHILS (test cod e = 1069) 0.07 K/UL ABS IMMATURE GRANULOCYTES (t est code = 1020) 0.05 K/UL ABS NUCLEATED RBCS (test cod e = 53182) 0.00 K/UL COMPREHENSIVE METABOLIC [id number] 00:00:00* Test Item Value Reference Range Interpretation Comme nts GLUCOSE (test code = 2217) 137 MG/DL BUN (test code = 2208) 12 MG/DL CREATININE (test code = 2214) 0.60 MG/DL eGFR (2020 CKD-EPI) (test co de = 87829) 99 ML/MIN/1.73 CALC BUN/CREAT (test code = 2235) 20 RATIO SODIUM (test code = 2231) 143 MEQ/L POTASSIUM (test code = 2228) 4.3 MEQ/L CHLORIDE (test code = 2215) 105 MEQ/L CARBON DIOXIDE (test code = 2206) 25 MEQ/L CALCIUM (test code = 2209) 9.6 MG/DL PROTEIN, TOTAL (test code = 2229) 6.8 G/DL ALBUMIN (test code = 2201) 4.5 G/DL CALC GLOBULIN (test code = 2240) 2.3 G/DL CALC A/G RATIO (test code = 2234) 2.0 RATIO BILIRUBIN, TOTAL (test code = 2207) 0.2 MG/DL ALKALINE PHOSPHATASE (test code = 2204) 128 U/L AST (test code = 2218) 15 U/L ALT (test code = 2219) 11 U/L COMPREHENSIVE METABOLIC [id number] 00:00:00* Test Item Value Reference Range Interpretation Comme nts GLUCOSE (test code = 2217) 137 MG/DL BUN (test code = 2208) 12 MG/DL CREATININE (test code = 2214) 0.60 MG/DL eGFR (2020 CKD-EPI) (test co de = 75528) 99 ML/MIN/1.73 CALC BUN/CREAT (test code = 2235) 20 RATIO SODIUM (test code = 2231) 143 MEQ/L POTASSIUM (test code = 2228) 4.3 MEQ/L CHLORIDE (test code = 2215) 105 MEQ/L CARBON DIOXIDE (test code = 2206) 25 MEQ/L CALCIUM (test code = 2209) 9.6 MG/DL PROTEIN, TOTAL (test code = 2229) 6.8 G/DL ALBUMIN (test code = 2201) 4.5 G/DL CALC GLOBULIN (test code = 2240) 2.3 G/DL CALC A/G RATIO (test code = 2234) 2.0 RATIO BILIRUBIN, TOTAL (test code = 2207) 0.2 MG/DL ALKALINE PHOSPHATASE (test code = 2204) 128 U/L AST (test code = 2218) 15 U/L ALT (test code = 2219) 11 U/L LIPID [id number] 00:00:00* Test Item Value Reference Range Interpretation Comme nts CHOLESTEROL (test code = 2210) 236 MG/DL TRIGLYCERIDES (test code = 2232) 274 MG/DL HDL CHOLESTEROL (test code = 2220) 54 MG/DL CALC LDL CHOL (test code = 2237) 140 MG/DL RISK RATIO LDL/HDL (test cod e = 2238) 2.59 RATIO LIPID [id number] 00:00:00* Test Item Value Reference Range Interpretation Comme nts CHOLESTEROL (test code = 2210) 236 MG/DL TRIGLYCERIDES (test code = 2232) 274 MG/DL HDL CHOLESTEROL (test code = 2220) 54 MG/DL CALC LDL CHOL (test code = 2237) 140 MG/DL RISK RATIO LDL/HDL (test cod e = 2238) 2.59 RATIO TSH, THIRD [id number] 00:00:00* Test Item Value Reference Range Interpretation Comme nts TSH, THIRD GENERATION (test code = 2821) 1.600 UIU/ML TSH, THIRD [id number] 00:00:00* Test Item Value Reference Range Interpretation Comme nts TSH, THIRD GENERATION (test code = 2821) 1.600 UIU/ML TSH, THIRD [id number] 00:00:00* Test Item Value Reference Range Interpretation Comme nts TSH, THIRD GENERATION (test code = 2821) 1.600 UIU/ML [id number] 00:00:00* Test Item Value Reference Range Interpretation Comme nts NT-proBNP (test code = 00347) <50 PG/ML [id number] 00:00:00* Test Item Value Reference Range Interpretation Comme nts NT-proBNP (test code = 49408) <50 PG/ML [id number] 00:00:00* Test Item Value Reference Range Interpretation Comme nts NT-proBNP (test code = 58476) <50 PG/ML HEMOGLOBIN [id number] 00:00:00* Test Item Value Reference Range Interpretation Comme nts HEMOGLOBIN A1c (test code = 03820) 5.9 % HEMOGLOBIN [id number] 00:00:00* Test Item Value Reference Range Interpretation Comme nts HEMOGLOBIN A1c (test code = 55945) 5.9 % HEMOGLOBIN [id number] 00:00:00* Test Item Value Reference Range Interpretation Comme nts HEMOGLOBIN A1c (test code = 67726) 5.9 % CBC W/AUTO [id number] 00:00:00* Test Item Value Reference Range Interpretation Comme nts WBC (test code = 1001) 5.9 K/UL [...] = 1013) 1.2 % IMMATURE GRANULOCYTES (test code = 1036) 0.8 % NUCLEATED RBCS (test code = 1065) 0.0 /100WBC'S PLATELET COUNT (test code = 1015) 198 K/UL ABSOLUTE NEUTROPHILS (test c ode = 1066) 3.74 K/UL ABSOLUTE LYMPHOCYTES (test c ode = 1067) 1.64 K/UL ABSOLUTE MONOCYTES (test cod e = 1068) 0.32 K/UL ABSOLUTE EOSINOPHILS (test c ode = 1040) 0.12 K/UL ABSOLUTE BASOPHILS (test cod e = 1069) 0.07 K/UL ABS IMMATURE GRANULOCYTES (t est code = 1020) 0.05 K/UL ABS NUCLEATED RBCS (test cod e = 02228) 0.00 K/UL CBC W/AUTO [id number] 00:00:00* Test Item Value Reference Range Interpretation Comme nts WBC (test code = 1001) 5.9 K/UL [...] = 1013) 1.2 % IMMATURE GRANULOCYTES (test code = 1036) 0.8 % NUCLEATED RBCS (test code = 1065) 0.0 /100WBC'S PLATELET COUNT (test code = 1015) 198 K/UL ABSOLUTE NEUTROPHILS (test c ode = 1066) 3.74 K/UL ABSOLUTE LYMPHOCYTES (test c ode = 1067) 1.64 K/UL ABSOLUTE MONOCYTES (test cod e = 1068) 0.32 K/UL ABSOLUTE EOSINOPHILS (test c ode = 1040) 0.12 K/UL ABSOLUTE BASOPHILS (test cod e = 1069) 0.07 K/UL ABS IMMATURE GRANULOCYTES (t est code = 1020) 0.05 K/UL ABS NUCLEATED RBCS (test cod e = 82005) 0.00 K/UL CBC W/AUTO [id number] 00:00:00* Test Item Value Reference Range Interpretation Comme nts WBC (test code = 1001) 5.9 K/UL [...] = 1013) 1.2 % IMMATURE GRANULOCYTES (test code = 1036) 0.8 % NUCLEATED RBCS (test code = 1065) 0.0 /100WBC'S PLATELET COUNT (test code = 1015) 198 K/UL ABSOLUTE NEUTROPHILS (test c ode = 1066) 3.74 K/UL ABSOLUTE LYMPHOCYTES (test c ode = 1067) 1.64 K/UL ABSOLUTE MONOCYTES (test cod e = 1068) 0.32 K/UL ABSOLUTE EOSINOPHILS (test c ode = 1040) 0.12 K/UL ABSOLUTE BASOPHILS (test cod e = 1069) 0.07 K/UL ABS IMMATURE GRANULOCYTES (t est code = 1020) 0.05 K/UL ABS NUCLEATED RBCS (test cod e = 95234) 0.00 K/UL COMPREHENSIVE METABOLIC [id number] 00:00:00* Test Item Value Reference Range Interpretation Comme nts GLUCOSE (test code = 2217) 137 MG/DL BUN (test code = 2208) 12 MG/DL CREATININE (test code = 2214) 0.60 MG/DL eGFR (2020 CKD-EPI) (test co de = 74945) 99 ML/MIN/1.73 CALC BUN/CREAT (test code = 2235) 20 RATIO SODIUM (test code = 2231) 143 MEQ/L POTASSIUM (test code = 2228) 4.3 MEQ/L CHLORIDE (test code = 2215) 105 MEQ/L CARBON DIOXIDE (test code = 2206) 25 MEQ/L CALCIUM (test code = 2209) 9.6 MG/DL PROTEIN, TOTAL (test code = 2229) 6.8 G/DL ALBUMIN (test code = 2201) 4.5 G/DL CALC GLOBULIN (test code = 2240) 2.3 G/DL CALC A/G RATIO (test code = 2234) 2.0 RATIO BILIRUBIN, TOTAL (test code = 2207) 0.2 MG/DL ALKALINE PHOSPHATASE (test code = 2204) 128 U/L AST (test code = 2218) 15 U/L ALT (test code = 2219) 11 U/L COMPREHENSIVE METABOLIC [id number] 00:00:00* Test Item Value Reference Range Interpretation Comme nts GLUCOSE (test code = 2217) 137 MG/DL BUN (test code = 2208) 12 MG/DL CREATININE (test code = 2214) 0.60 MG/DL eGFR (2020 CKD-EPI) (test co de = 28468) 99 ML/MIN/1.73 CALC BUN/CREAT (test code = 2235) 20 RATIO SODIUM (test code = 2231) 143 MEQ/L POTASSIUM (test code = 2228) 4.3 MEQ/L CHLORIDE (test code = 2215) 105 MEQ/L CARBON DIOXIDE (test code = 2206) 25 MEQ/L CALCIUM (test code = 2209) 9.6 MG/DL PROTEIN, TOTAL (test code = 2229) 6.8 G/DL ALBUMIN (test code = 2201) 4.5 G/DL CALC GLOBULIN (test code = 2240) 2.3 G/DL CALC A/G RATIO (test code = 2234) 2.0 RATIO BILIRUBIN, TOTAL (test code = 2207) 0.2 MG/DL ALKALINE PHOSPHATASE (test code = 2204) 128 U/L AST (test code = 2218) 15 U/L ALT (test code = 2219) 11 U/L LIPID [id number] 00:00:00* Test Item Value Reference Range Interpretation Comme nts CHOLESTEROL (test code = 2210) 236 MG/DL TRIGLYCERIDES (test code = 2232) 274 MG/DL HDL CHOLESTEROL (test code = 2220) 54 MG/DL CALC LDL CHOL (test code = 2237) 140 MG/DL RISK RATIO LDL/HDL (test cod e = 2238) 2.59 RATIO LIPID [id number] 00:00:00* Test Item Value Reference Range Interpretation Comme nts CHOLESTEROL (test code = 2210) 236 MG/DL TRIGLYCERIDES (test code = 2232) 274 MG/DL HDL CHOLESTEROL (test code = 2220) 54 MG/DL CALC LDL CHOL (test code = 2237) 140 MG/DL RISK RATIO LDL/HDL (test cod e = 2238) 2.59 RATIO TSH, THIRD [id number] 00:00:00* Test Item Value Reference Range Interpretation Comme nts TSH, THIRD GENERATION (test code = 2821) 1.600 UIU/ML TSH, THIRD [id number] 00:00:00* Test Item Value Reference Range Interpretation Comme nts TSH, THIRD GENERATION (test code = 2821) 1.600 UIU/ML TSH, THIRD [id number] 00:00:00* Test Item Value Reference Range Interpretation Comme nts TSH, THIRD GENERATION (test code = 2821) 1.600 UIU/ML [id number] 00:00:00* Test Item Value Reference Range Interpretation Comme nts NT-proBNP (test code = 57525) <50 PG/ML [id number] 00:00:00* Test Item Value Reference Range Interpretation Comme nts NT-proBNP (test code = 89238) <50 PG/ML [id number] 00:00:00* Test Item Value Reference Range Interpretation Comme nts NT-proBNP (test code = 18495) <50 PG/ML HEMOGLOBIN [id number] 00:00:00* Test Item Value Reference Range Interpretation Comme nts HEMOGLOBIN A1c (test code = 85517) 5.9 % HEMOGLOBIN [id number] 00:00:00* Test Item Value Reference Range Interpretation Comme nts HEMOGLOBIN A1c (test code = 54370) 5.9 % HEMOGLOBIN [id number] 00:00:00* Test Item Value Reference Range Interpretation Comme nts HEMOGLOBIN A1c (test code = 64159) 5.9 % CBC W/AUTO [id number] 00:00:00* Test Item Value Reference Range Interpretation Comme nts WBC (test code = 1001) 5.9 K/UL [...] = 1013) 1.2 % IMMATURE GRANULOCYTES (test code = 1036) 0.8 % NUCLEATED RBCS (test code = 1065) 0.0 /100WBC'S PLATELET COUNT (test code = 1015) 198 K/UL ABSOLUTE NEUTROPHILS (test c ode = 1066) 3.74 K/UL ABSOLUTE LYMPHOCYTES (test c ode = 1067) 1.64 K/UL ABSOLUTE MONOCYTES (test cod e = 1068) 0.32 K/UL ABSOLUTE EOSINOPHILS (test c ode = 1040) 0.12 K/UL ABSOLUTE BASOPHILS (test cod e = 1069) 0.07 K/UL ABS IMMATURE GRANULOCYTES (t est code = 1020) 0.05 K/UL ABS NUCLEATED RBCS (test cod e = 74929) 0.00 K/UL CBC W/AUTO [id number] 00:00:00* Test Item Value Reference Range Interpretation Comme nts WBC (test code = 1001) 5.9 K/UL [...] = 1013) 1.2 % IMMATURE GRANULOCYTES (test code = 1036) 0.8 % NUCLEATED RBCS (test code = 1065) 0.0 /100WBC'S PLATELET COUNT (test code = 1015) 198 K/UL ABSOLUTE NEUTROPHILS (test c ode = 1066) 3.74 K/UL ABSOLUTE LYMPHOCYTES (test c ode = 1067) 1.64 K/UL ABSOLUTE MONOCYTES (test cod e = 1068) 0.32 K/UL ABSOLUTE EOSINOPHILS (test c ode = 1040) 0.12 K/UL ABSOLUTE BASOPHILS (test cod e = 1069) 0.07 K/UL ABS IMMATURE GRANULOCYTES (t est code = 1020) 0.05 K/UL ABS NUCLEATED RBCS (test cod e = 30258) 0.00 K/UL CBC W/AUTO [id number] 00:00:00* Test Item Value Reference Range Interpretation Comme nts WBC (test code = 1001) 5.9 K/UL [...] = 1013) 1.2 % IMMATURE GRANULOCYTES (test code = 1036) 0.8 % NUCLEATED RBCS (test code = 1065) 0.0 /100WBC'S PLATELET COUNT (test code = 1015) 198 K/UL ABSOLUTE NEUTROPHILS (test c ode = 1066) 3.74 K/UL ABSOLUTE LYMPHOCYTES (test c ode = 1067) 1.64 K/UL ABSOLUTE MONOCYTES (test cod e = 1068) 0.32 K/UL ABSOLUTE EOSINOPHILS (test c ode = 1040) 0.12 K/UL ABSOLUTE BASOPHILS (test cod e = 1069) 0.07 K/UL ABS IMMATURE GRANULOCYTES (t est code = 1020) 0.05 K/UL ABS NUCLEATED RBCS (test cod e = 63429) 0.00 K/UL COMPREHENSIVE METABOLIC [id number] 00:00:00* Test Item Value Reference Range Interpretation Comme nts GLUCOSE (test code = 2217) 137 MG/DL BUN (test code = 2208) 12 MG/DL CREATININE (test code = 2214) 0.60 MG/DL eGFR (2020 CKD-EPI) (test co de = 04467) 99 ML/MIN/1.73 CALC BUN/CREAT (test code = 2235) 20 RATIO SODIUM (test code = 2231) 143 MEQ/L POTASSIUM (test code = 2228) 4.3 MEQ/L CHLORIDE (test code = 2215) 105 MEQ/L CARBON DIOXIDE (test code = 2206) 25 MEQ/L CALCIUM (test code = 2209) 9.6 MG/DL PROTEIN, TOTAL (test code = 2229) 6.8 G/DL ALBUMIN (test code = 2201) 4.5 G/DL CALC GLOBULIN (test code = 2240) 2.3 G/DL CALC A/G RATIO (test code = 2234) 2.0 RATIO BILIRUBIN, TOTAL (test code = 2207) 0.2 MG/DL ALKALINE PHOSPHATASE (test code = 2204) 128 U/L AST (test code = 2218) 15 U/L ALT (test code = 2219) 11 U/L COMPREHENSIVE METABOLIC [id number] 00:00:00* Test Item Value Reference Range Interpretation Comme nts GLUCOSE (test code = 2217) 137 MG/DL BUN (test code = 2208) 12 MG/DL CREATININE (test code = 2214) 0.60 MG/DL eGFR (2020 CKD-EPI) (test co de = 50796) 99 ML/MIN/1.73 CALC BUN/CREAT (test code = 2235) 20 RATIO SODIUM (test code = 2231) 143 MEQ/L POTASSIUM (test code = 2228) 4.3 MEQ/L CHLORIDE (test code = 2215) 105 MEQ/L CARBON DIOXIDE (test code = 2206) 25 MEQ/L CALCIUM (test code = 2209) 9.6 MG/DL PROTEIN, TOTAL (test code = 2229) 6.8 G/DL ALBUMIN (test code = 2201) 4.5 G/DL CALC GLOBULIN (test code = 2240) 2.3 G/DL CALC A/G RATIO (test code = 2234) 2.0 RATIO BILIRUBIN, TOTAL (test code = 2207) 0.2 MG/DL ALKALINE PHOSPHATASE (test code = 2204) 128 U/L AST (test code = 2218) 15 U/L ALT (test code = 2219) 11 U/L LIPID [id number] 00:00:00* Test Item Value Reference Range Interpretation Comme nts CHOLESTEROL (test code = 2210) 236 MG/DL TRIGLYCERIDES (test code = 2232) 274 MG/DL HDL CHOLESTEROL (test code = 2220) 54 MG/DL CALC LDL CHOL (test code = 2237) 140 MG/DL RISK RATIO LDL/HDL (test cod e = 2238) 2.59 RATIO LIPID [id number] 00:00:00* Test Item Value Reference Range Interpretation Comme nts CHOLESTEROL (test code = 2210) 236 MG/DL TRIGLYCERIDES (test code = 2232) 274 MG/DL HDL CHOLESTEROL (test code = 2220) 54 MG/DL CALC LDL CHOL (test code = 2237) 140 MG/DL RISK RATIO LDL/HDL (test cod e = 2238) 2.59 RATIO TSH, THIRD [id number] 00:00:00* Test Item Value Reference Range Interpretation Comme nts TSH, THIRD GENERATION (test code = 2821) 1.600 UIU/ML TSH, THIRD [id number] 00:00:00* Test Item Value Reference Range Interpretation Comme nts TSH, THIRD GENERATION (test code = 2821) 1.600 UIU/ML TSH, THIRD [id number] 00:00:00* Test Item Value Reference Range Interpretation Comme nts TSH, THIRD GENERATION (test code = 2821) 1.600 UIU/ML [id number] 00:00:00* Test Item Value Reference Range Interpretation Comme nts NT-proBNP (test code = 09453) <50 PG/ML [id number] 00:00:00* Test Item Value Reference Range Interpretation Comme nts NT-proBNP (test code = 22563) <50 PG/ML [id number] 00:00:00* Test Item Value Reference Range Interpretation Comme nts NT-proBNP (test code = 72946) <50 PG/ML HEMOGLOBIN [id number] 00:00:00* Test Item Value Reference Range Interpretation Comme nts HEMOGLOBIN A1c (test code = 60388) 5.9 % HEMOGLOBIN [id number] 00:00:00* Test Item Value Reference Range Interpretation Comme nts HEMOGLOBIN A1c (test code = 73507) 5.9 % HEMOGLOBIN [id number] 00:00:00* Test Item Value Reference Range Interpretation Comme nts HEMOGLOBIN A1c (test code = 26867) 5.9 % CBC W/AUTO [id number] 00:00:00* Test Item Value Reference Range Interpretation Comme nts WBC (test code = 1001) 5.9 K/UL [...] = 1013) 1.2 % IMMATURE GRANULOCYTES (test code = 1036) 0.8 % NUCLEATED RBCS (test code = 1065) 0.0 /100WBC'S PLATELET COUNT (test code = 1015) 198 K/UL ABSOLUTE NEUTROPHILS (test c ode = 1066) 3.74 K/UL ABSOLUTE LYMPHOCYTES (test c ode = 1067) 1.64 K/UL ABSOLUTE MONOCYTES (test cod e = 1068) 0.32 K/UL ABSOLUTE EOSINOPHILS (test c ode = 1040) 0.12 K/UL ABSOLUTE BASOPHILS (test cod e = 1069) 0.07 K/UL ABS IMMATURE GRANULOCYTES (t est code = 1020) 0.05 K/UL ABS NUCLEATED RBCS (test cod e = 87526) 0.00 K/UL CBC W/AUTO [id number] 00:00:00* Test Item Value Reference Range Interpretation Comme nts WBC (test code = 1001) 5.9 K/UL [...] = 1013) 1.2 % IMMATURE GRANULOCYTES (test code = 1036) 0.8 % NUCLEATED RBCS (test code = 1065) 0.0 /100WBC'S PLATELET COUNT (test code = 1015) 198 K/UL ABSOLUTE NEUTROPHILS (test c ode = 1066) 3.74 K/UL ABSOLUTE LYMPHOCYTES (test c ode = 1067) 1.64 K/UL ABSOLUTE MONOCYTES (test cod e = 1068) 0.32 K/UL ABSOLUTE EOSINOPHILS (test c ode = 1040) 0.12 K/UL ABSOLUTE BASOPHILS (test cod e = 1069) 0.07 K/UL ABS IMMATURE GRANULOCYTES (t est code = 1020) 0.05 K/UL ABS NUCLEATED RBCS (test cod e = 32872) 0.00 K/UL CBC W/AUTO [id number] 00:00:00* Test Item Value Reference Range Interpretation Comme nts WBC (test code = 1001) 5.9 K/UL [...] = 1013) 1.2 % IMMATURE GRANULOCYTES (test code = 1036) 0.8 % NUCLEATED RBCS (test code = 1065) 0.0 /100WBC'S PLATELET COUNT (test code = 1015) 198 K/UL ABSOLUTE NEUTROPHILS (test c ode = 1066) 3.74 K/UL ABSOLUTE LYMPHOCYTES (test c ode = 1067) 1.64 K/UL ABSOLUTE MONOCYTES (test cod e = 1068) 0.32 K/UL ABSOLUTE EOSINOPHILS (test c ode = 1040) 0.12 K/UL ABSOLUTE BASOPHILS (test cod e = 1069) 0.07 K/UL ABS IMMATURE GRANULOCYTES (t est code = 1020) 0.05 K/UL ABS NUCLEATED RBCS (test cod e = 46377) 0.00 K/UL COMPREHENSIVE METABOLIC [id number] 00:00:00* Test Item Value Reference Range Interpretation Comme nts GLUCOSE (test code = 2217) 137 MG/DL BUN (test code = 2208) 12 MG/DL CREATININE (test code = 2214) 0.60 MG/DL eGFR (2020 CKD-EPI) (test co de = 27743) 99 ML/MIN/1.73 CALC BUN/CREAT (test code = 2235) 20 RATIO SODIUM (test code = 2231) 143 MEQ/L POTASSIUM (test code = 2228) 4.3 MEQ/L CHLORIDE (test code = 2215) 105 MEQ/L CARBON DIOXIDE (test code = 2206) 25 MEQ/L CALCIUM (test code = 2209) 9.6 MG/DL PROTEIN, TOTAL (test code = 2229) 6.8 G/DL ALBUMIN (test code = 2201) 4.5 G/DL CALC GLOBULIN (test code = 2240) 2.3 G/DL CALC A/G RATIO (test code = 2234) 2.0 RATIO BILIRUBIN, TOTAL (test code = 2207) 0.2 MG/DL ALKALINE PHOSPHATASE (test code = 2204) 128 U/L AST (test code = 2218) 15 U/L ALT (test code = 2219) 11 U/L COMPREHENSIVE METABOLIC [id number] 00:00:00* Test Item Value Reference Range Interpretation Comme nts GLUCOSE (test code = 2217) 137 MG/DL BUN (test code = 2208) 12 MG/DL CREATININE (test code = 2214) 0.60 MG/DL eGFR (2020 CKD-EPI) (test co de = 94534) 99 ML/MIN/1.73 CALC BUN/CREAT (test code = 2235) 20 RATIO SODIUM (test code = 2231) 143 MEQ/L POTASSIUM (test code = 2228) 4.3 MEQ/L CHLORIDE (test code = 2215) 105 MEQ/L CARBON DIOXIDE (test code = 2206) 25 MEQ/L CALCIUM (test code = 2209) 9.6 MG/DL PROTEIN, TOTAL (test code = 2229) 6.8 G/DL ALBUMIN (test code = 2201) 4.5 G/DL CALC GLOBULIN (test code = 2240) 2.3 G/DL CALC A/G RATIO (test code = 2234) 2.0 RATIO BILIRUBIN, TOTAL (test code = 2207) 0.2 MG/DL ALKALINE PHOSPHATASE (test code = 2204) 128 U/L AST (test code = 2218) 15 U/L ALT (test code = 2219) 11 U/L LIPID [id number] 00:00:00* Test Item Value Reference Range Interpretation Comme nts CHOLESTEROL (test code = 2210) 236 MG/DL TRIGLYCERIDES (test code = 2232) 274 MG/DL HDL CHOLESTEROL (test code = 2220) 54 MG/DL CALC LDL CHOL (test code = 2237) 140 MG/DL RISK RATIO LDL/HDL (test cod e = 2238) 2.59 RATIO LIPID [id number] 00:00:00* Test Item Value Reference Range Interpretation Comme nts CHOLESTEROL (test code = 2210) 236 MG/DL TRIGLYCERIDES (test code = 2232) 274 MG/DL HDL CHOLESTEROL (test code = 2220) 54 MG/DL CALC LDL CHOL (test code = 2237) 140 MG/DL RISK RATIO LDL/HDL (test cod e = 2238) 2.59 RATIO TSH, THIRD [id number] 00:00:00* Test Item Value Reference Range Interpretation Comme nts TSH, THIRD GENERATION (test code = 2821) 1.600 UIU/ML TSH, THIRD [id number] 00:00:00* Test Item Value Reference Range Interpretation Comme nts TSH, THIRD GENERATION (test code = 2821) 1.600 UIU/ML TSH, THIRD [id number] 00:00:00* Test Item Value Reference Range Interpretation Comme nts TSH, THIRD GENERATION (test code = 2821) 1.600 UIU/ML [id number] 00:00:00* Test Item Value Reference Range Interpretation Comme nts NT-proBNP (test code = 02345) <50 PG/ML [id number] 00:00:00* Test Item Value Reference Range Interpretation Comme nts NT-proBNP (test code = 30124) <50 PG/ML [id number] 00:00:00* Test Item Value Reference Range Interpretation Comme nts NT-proBNP (test code = 61397) <50 PG/ML LIPID [id number] 00:00:00* Test Item Value Reference Range Interpretation Comme nts CHOLESTEROL (test code = 2210) 252 MG/DL TRIGLYCERIDES (test code = 2232) 171 MG/DL HDL CHOLESTEROL (test code = 2220) 61 MG/DL CALC LDL CHOL (test code = 2237) 159 MG/DL RISK RATIO LDL/HDL (test cod e = 2238) 2.61 RATIO LIPID [id number] 00:00:00* Test Item Value Reference Range Interpretation Comme nts CHOLESTEROL (test code = 2210) 252 MG/DL TRIGLYCERIDES (test code = 2232) 171 MG/DL HDL CHOLESTEROL (test code = 2220) 61 MG/DL CALC LDL CHOL (test code = 2237) 159 MG/DL RISK RATIO LDL/HDL (test cod e = 2238) 2.61 RATIO CBC W/AUTO [id number] 00:00:00* Test Item Value Reference Range Interpretation Comme nts WBC (test code = 1001) 7.5 K/UL [...] = 1013) 0.9 % IMMATURE GRANULOCYTES (test code = 1036) 0.7 % NUCLEATED RBCS (test code = 1065) 0.0 /100WBC'S PLATELET COUNT (test code = 1015) 232 K/UL ABSOLUTE NEUTROPHILS (test c ode = 1066) 5.11 K/UL ABSOLUTE LYMPHOCYTES (test c ode = 1067) 1.69 K/UL ABSOLUTE MONOCYTES (test cod e = 1068) 0.55 K/UL ABSOLUTE EOSINOPHILS (test c ode = 1040) 0.04 K/UL ABSOLUTE BASOPHILS (test cod e = 1069) 0.07 K/UL ABS IMMATURE GRANULOCYTES (t est code = 1020) 0.05 K/UL ABS NUCLEATED RBCS (test cod e = 17298) 0.00 K/UL CBC W/AUTO [id number] 00:00:00* Test Item Value Reference Range Interpretation Comme nts WBC (test code = 1001) 7.5 K/UL [...] = 1013) 0.9 % IMMATURE GRANULOCYTES (test code = 1036) 0.7 % NUCLEATED RBCS (test code = 1065) 0.0 /100WBC'S PLATELET COUNT (test code = 1015) 232 K/UL ABSOLUTE NEUTROPHILS (test c ode = 1066) 5.11 K/UL ABSOLUTE LYMPHOCYTES (test c ode = 1067) 1.69 K/UL ABSOLUTE MONOCYTES (test cod e = 1068) 0.55 K/UL ABSOLUTE EOSINOPHILS (test c ode = 1040) 0.04 K/UL ABSOLUTE BASOPHILS (test cod e = 1069) 0.07 K/UL ABS IMMATURE GRANULOCYTES (t est code = 1020) 0.05 K/UL ABS NUCLEATED RBCS (test cod e = 57328) 0.00 K/UL CBC W/AUTO [id number] 00:00:00* Test Item Value Reference Range Interpretation Comme nts WBC (test code = 1001) 7.5 K/UL [...] = 1013) 0.9 % IMMATURE GRANULOCYTES (test code = 1036) 0.7 % NUCLEATED RBCS (test code = 1065) 0.0 /100WBC'S PLATELET COUNT (test code = 1015) 232 K/UL ABSOLUTE NEUTROPHILS (test c ode = 1066) 5.11 K/UL ABSOLUTE LYMPHOCYTES (test c ode = 1067) 1.69 K/UL ABSOLUTE MONOCYTES (test cod e = 1068) 0.55 K/UL ABSOLUTE EOSINOPHILS (test c ode = 1040) 0.04 K/UL ABSOLUTE BASOPHILS (test cod e = 1069) 0.07 K/UL ABS IMMATURE GRANULOCYTES (t est code = 1020) 0.05 K/UL ABS NUCLEATED RBCS (test cod e = 37872) 0.00 K/UL COMPREHENSIVE METABOLIC [id number] 00:00:00* Test Item Value Reference Range Interpretation Comme nts GLUCOSE (test code = 2217) 106 MG/DL BUN (test code = 2208) 7 MG/DL CREATININE (test code = 2214) 0.57 MG/DL eGFR AMER. (test cod e = 82135) 113 ML/MIN/1.73 eGFR NON- AMER. (test code = 57189) 97 ML/MIN/1.73 CALC BUN/CREAT (test code = 2235) 12 RATIO SODIUM (test code = 2231) 141 MEQ/L POTASSIUM (test code = 2228) 4.0 MEQ/L CHLORIDE (test code = 2215) 101 MEQ/L CARBON DIOXIDE (test code = 2206) 24 MEQ/L CALCIUM (test code = 2209) 9.7 MG/DL PROTEIN, TOTAL (test code = 2229) 7.3 G/DL ALBUMIN (test code = 2201) 4.8 G/DL CALC GLOBULIN (test code = 2240) 2.5 G/DL CALC A/G RATIO (test code = 2234) 1.9 RATIO BILIRUBIN, TOTAL (test code = 2207) 0.2 MG/DL ALKALINE PHOSPHATASE (test code = 2204) 102 U/L AST (test code = 2218) 14 U/L ALT (test code = 2219) 12 U/L COMPREHENSIVE METABOLIC [id number] 00:00:00* Test Item Value Reference Range Interpretation Comme nts GLUCOSE (test code = 2217) 106 MG/DL BUN (test code = 2208) 7 MG/DL CREATININE (test code = 2214) 0.57 MG/DL eGFR AMER. (test cod e = 45581) 113 ML/MIN/1.73 eGFR NON- AMER. (test code = 84841) 97 ML/MIN/1.73 CALC BUN/CREAT (test code = 2235) 12 RATIO SODIUM (test code = 2231) 141 MEQ/L POTASSIUM (test code = 2228) 4.0 MEQ/L CHLORIDE (test code = 2215) 101 MEQ/L CARBON DIOXIDE (test code = 2206) 24 MEQ/L CALCIUM (test code = 2209) 9.7 MG/DL PROTEIN, TOTAL (test code = 2229) 7.3 G/DL ALBUMIN (test code = 2201) 4.8 G/DL CALC GLOBULIN (test code = 2240) 2.5 G/DL CALC A/G RATIO (test code = 2234) 1.9 RATIO BILIRUBIN, TOTAL (test code = 2207) 0.2 MG/DL ALKALINE PHOSPHATASE (test code = 2204) 102 U/L AST (test code = 2218) 14 U/L ALT (test code = 2219) 12 U/L [id number] 00:00:00* Test Item Value Reference Range Interpretation Comme nts TSH, THIRD GENERATION (test code = 2821) 1.390 UIU/ML [id number] 00:00:00* Test Item Value Reference Range Interpretation Comme nts TSH, THIRD GENERATION (test code = 2821) 1.390 UIU/ML [id number] 00:00:00* Test Item Value Reference Range Interpretation Comme nts TSH, THIRD GENERATION (test code = 2821) 1.390 UIU/ML HEMOGLOBIN A1c [ADDED]2021-04-05 00:00:00* Test Item Value Reference Range Interpretation Comme nts HEMOGLOBIN A1c (test code = 02678) 5.7 % HEMOGLOBIN A1c [ADDED]2021-04-05 00:00:00* Test Item Value Reference Range Interpretation Comme nts HEMOGLOBIN A1c (test code = 71788) 5.7 % HEMOGLOBIN A1c [ADDED]2021-04-05 00:00:00* Test Item Value Reference Range Interpretation Comme nts HEMOGLOBIN A1c (test code = 39912) 5.7 % LIPID [id number] 00:00:00* Test Item Value Reference Range Interpretation Comme nts CHOLESTEROL (test code = 2210) 252 MG/DL TRIGLYCERIDES (test code = 2232) 171 MG/DL HDL CHOLESTEROL (test code = 2220) 61 MG/DL CALC LDL CHOL (test code = 2237) 159 MG/DL RISK RATIO LDL/HDL (test cod e = 2238) 2.61 RATIO LIPID [id number] 00:00:00* Test Item Value Reference Range Interpretation Comme nts CHOLESTEROL (test code = 2210) 252 MG/DL TRIGLYCERIDES (test code = 2232) 171 MG/DL HDL CHOLESTEROL (test code = 2220) 61 MG/DL CALC LDL CHOL (test code = 2237) 159 MG/DL RISK RATIO LDL/HDL (test cod e = 2238) 2.61 RATIO CBC W/AUTO [id number] 00:00:00* Test Item Value Reference Range Interpretation Comme nts WBC (test code = 1001) 7.5 K/UL [...] = 1013) 0.9 % IMMATURE GRANULOCYTES (test code = 1036) 0.7 % NUCLEATED RBCS (test code = 1065) 0.0 /100WBC'S PLATELET COUNT (test code = 1015) 232 K/UL ABSOLUTE NEUTROPHILS (test c ode = 1066) 5.11 K/UL ABSOLUTE LYMPHOCYTES (test c ode = 1067) 1.69 K/UL ABSOLUTE MONOCYTES (test cod e = 1068) 0.55 K/UL ABSOLUTE EOSINOPHILS (test c ode = 1040) 0.04 K/UL ABSOLUTE BASOPHILS (test cod e = 1069) 0.07 K/UL ABS IMMATURE GRANULOCYTES (t est code = 1020) 0.05 K/UL ABS NUCLEATED RBCS (test cod e = 80096) 0.00 K/UL CBC W/AUTO [id number] 00:00:00* Test Item Value Reference Range Interpretation Comme nts WBC (test code = 1001) 7.5 K/UL [...] = 1013) 0.9 % IMMATURE GRANULOCYTES (test code = 1036) 0.7 % NUCLEATED RBCS (test code = 1065) 0.0 /100WBC'S PLATELET COUNT (test code = 1015) 232 K/UL ABSOLUTE NEUTROPHILS (test c ode = 1066) 5.11 K/UL ABSOLUTE LYMPHOCYTES (test c ode = 1067) 1.69 K/UL ABSOLUTE MONOCYTES (test cod e = 1068) 0.55 K/UL ABSOLUTE EOSINOPHILS (test c ode = 1040) 0.04 K/UL ABSOLUTE BASOPHILS (test cod e = 1069) 0.07 K/UL ABS IMMATURE GRANULOCYTES (t est code = 1020) 0.05 K/UL ABS NUCLEATED RBCS (test cod e = 64688) 0.00 K/UL CBC W/AUTO [id number] 00:00:00* Test Item Value Reference Range Interpretation Comme nts WBC (test code = 1001) 7.5 K/UL [...] = 1013) 0.9 % IMMATURE GRANULOCYTES (test code = 1036) 0.7 % NUCLEATED RBCS (test code = 1065) 0.0 /100WBC'S PLATELET COUNT (test code = 1015) 232 K/UL ABSOLUTE NEUTROPHILS (test c ode = 1066) 5.11 K/UL ABSOLUTE LYMPHOCYTES (test c ode = 1067) 1.69 K/UL ABSOLUTE MONOCYTES (test cod e = 1068) 0.55 K/UL ABSOLUTE EOSINOPHILS (test c ode = 1040) 0.04 K/UL ABSOLUTE BASOPHILS (test cod e = 1069) 0.07 K/UL ABS IMMATURE GRANULOCYTES (t est code = 1020) 0.05 K/UL ABS NUCLEATED RBCS (test cod e = 35944) 0.00 K/UL COMPREHENSIVE METABOLIC [id number] 00:00:00* Test Item Value Reference Range Interpretation Comme nts GLUCOSE (test code = 2217) 106 MG/DL BUN (test code = 2208) 7 MG/DL CREATININE (test code = 2214) 0.57 MG/DL eGFR AMER. (test cod e = 97284) 113 ML/MIN/1.73 eGFR NON- AMER. (test code = 09034) 97 ML/MIN/1.73 CALC BUN/CREAT (test code = 2235) 12 RATIO SODIUM (test code = 2231) 141 MEQ/L POTASSIUM (test code = 2228) 4.0 MEQ/L CHLORIDE (test code = 2215) 101 MEQ/L CARBON DIOXIDE (test code = 2206) 24 MEQ/L CALCIUM (test code = 2209) 9.7 MG/DL PROTEIN, TOTAL (test code = 2229) 7.3 G/DL ALBUMIN (test code = 2201) 4.8 G/DL CALC GLOBULIN (test code = 2240) 2.5 G/DL CALC A/G RATIO (test code = 2234) 1.9 RATIO BILIRUBIN, TOTAL (test code = 2207) 0.2 MG/DL ALKALINE PHOSPHATASE (test code = 2204) 102 U/L AST (test code = 2218) 14 U/L ALT (test code = 2219) 12 U/L COMPREHENSIVE METABOLIC [id number] 00:00:00* Test Item Value Reference Range Interpretation Comme nts GLUCOSE (test code = 2217) 106 MG/DL BUN (test code = 2208) 7 MG/DL CREATININE (test code = 2214) 0.57 MG/DL eGFR AMER. (test cod e = 10379) 113 ML/MIN/1.73 eGFR NON- AMER. (test code = 41957) 97 ML/MIN/1.73 CALC BUN/CREAT (test code = 2235) 12 RATIO SODIUM (test code = 2231) 141 MEQ/L POTASSIUM (test code = 2228) 4.0 MEQ/L CHLORIDE (test code = 2215) 101 MEQ/L CARBON DIOXIDE (test code = 2206) 24 MEQ/L CALCIUM (test code = 2209) 9.7 MG/DL PROTEIN, TOTAL (test code = 2229) 7.3 G/DL ALBUMIN (test code = 2201) 4.8 G/DL CALC GLOBULIN (test code = 2240) 2.5 G/DL CALC A/G RATIO (test code = 2234) 1.9 RATIO BILIRUBIN, TOTAL (test code = 2207) 0.2 MG/DL ALKALINE PHOSPHATASE (test code = 2204) 102 U/L AST (test code = 2218) 14 U/L ALT (test code = 2219) 12 U/L [id number] 00:00:00* Test Item Value Reference Range Interpretation Comme nts TSH, THIRD GENERATION (test code = 2821) 1.390 UIU/ML [id number] 00:00:00* Test Item Value Reference Range Interpretation Comme nts TSH, THIRD GENERATION (test code = 2821) 1.390 UIU/ML [id number] 00:00:00* Test Item Value Reference Range Interpretation Comme nts TSH, THIRD GENERATION (test code = 2821) 1.390 UIU/ML HEMOGLOBIN A1c [ADDED]2021-04-05 00:00:00* Test Item Value Reference Range Interpretation Comme nts HEMOGLOBIN A1c (test code = 75064) 5.7 % HEMOGLOBIN A1c [ADDED]2021-04-05 00:00:00* Test Item Value Reference Range Interpretation Comme nts HEMOGLOBIN A1c (test code = 18577) 5.7 % HEMOGLOBIN A1c [ADDED]2021-04-05 00:00:00* Test Item Value Reference Range Interpretation Comme nts HEMOGLOBIN A1c (test code = 65798) 5.7 % LIPID [id number] 00:00:00* Test Item Value Reference Range Interpretation Comme nts CHOLESTEROL (test code = 2210) 252 MG/DL TRIGLYCERIDES (test code = 2232) 171 MG/DL HDL CHOLESTEROL (test code = 2220) 61 MG/DL CALC LDL CHOL (test code = 2237) 159 MG/DL RISK RATIO LDL/HDL (test cod e = 2238) 2.61 RATIO LIPID [id number] 00:00:00* Test Item Value Reference Range Interpretation Comme nts CHOLESTEROL (test code = 2210) 252 MG/DL TRIGLYCERIDES (test code = 2232) 171 MG/DL HDL CHOLESTEROL (test code = 2220) 61 MG/DL CALC LDL CHOL (test code = 2237) 159 MG/DL RISK RATIO LDL/HDL (test cod e = 2238) 2.61 RATIO CBC W/AUTO [id number] 00:00:00* Test Item Value Reference Range Interpretation Comme nts WBC (test code = 1001) 7.5 K/UL [...] = 1013) 0.9 % IMMATURE GRANULOCYTES (test code = 1036) 0.7 % NUCLEATED RBCS (test code = 1065) 0.0 /100WBC'S PLATELET COUNT (test code = 1015) 232 K/UL ABSOLUTE NEUTROPHILS (test c ode = 1066) 5.11 K/UL ABSOLUTE LYMPHOCYTES (test c ode = 1067) 1.69 K/UL ABSOLUTE MONOCYTES (test cod e = 1068) 0.55 K/UL ABSOLUTE EOSINOPHILS (test c ode = 1040) 0.04 K/UL ABSOLUTE BASOPHILS (test cod e = 1069) 0.07 K/UL ABS IMMATURE GRANULOCYTES (t est code = 1020) 0.05 K/UL ABS NUCLEATED RBCS (test cod e = 28346) 0.00 K/UL CBC W/AUTO [id number] 00:00:00* Test Item Value Reference Range Interpretation Comme nts WBC (test code = 1001) 7.5 K/UL [...] = 1013) 0.9 % IMMATURE GRANULOCYTES (test code = 1036) 0.7 % NUCLEATED RBCS (test code = 1065) 0.0 /100WBC'S PLATELET COUNT (test code = 1015) 232 K/UL ABSOLUTE NEUTROPHILS (test c ode = 1066) 5.11 K/UL ABSOLUTE LYMPHOCYTES (test c ode = 1067) 1.69 K/UL ABSOLUTE MONOCYTES (test cod e = 1068) 0.55 K/UL ABSOLUTE EOSINOPHILS (test c ode = 1040) 0.04 K/UL ABSOLUTE BASOPHILS (test cod e = 1069) 0.07 K/UL ABS IMMATURE GRANULOCYTES (t est code = 1020) 0.05 K/UL ABS NUCLEATED RBCS (test cod e = 83991) 0.00 K/UL CBC W/AUTO [id number] 00:00:00* Test Item Value Reference Range Interpretation Comme nts WBC (test code = 1001) 7.5 K/UL [...] = 1013) 0.9 % IMMATURE GRANULOCYTES (test code = 1036) 0.7 % NUCLEATED RBCS (test code = 1065) 0.0 /100WBC'S PLATELET COUNT (test code = 1015) 232 K/UL ABSOLUTE NEUTROPHILS (test c ode = 1066) 5.11 K/UL ABSOLUTE LYMPHOCYTES (test c ode = 1067) 1.69 K/UL ABSOLUTE MONOCYTES (test cod e = 1068) 0.55 K/UL ABSOLUTE EOSINOPHILS (test c ode = 1040) 0.04 K/UL ABSOLUTE BASOPHILS (test cod e = 1069) 0.07 K/UL ABS IMMATURE GRANULOCYTES (t est code = 1020) 0.05 K/UL ABS NUCLEATED RBCS (test cod e = 75502) 0.00 K/UL COMPREHENSIVE METABOLIC [id number] 00:00:00* Test Item Value Reference Range Interpretation Comme nts GLUCOSE (test code = 2217) 106 MG/DL BUN (test code = 2208) 7 MG/DL CREATININE (test code = 2214) 0.57 MG/DL eGFR AMER. (test cod e = 74089) 113 ML/MIN/1.73 eGFR NON- AMER. (test code = 48795) 97 ML/MIN/1.73 CALC BUN/CREAT (test code = 2235) 12 RATIO SODIUM (test code = 2231) 141 MEQ/L POTASSIUM (test code = 2228) 4.0 MEQ/L CHLORIDE (test code = 2215) 101 MEQ/L CARBON DIOXIDE (test code = 2206) 24 MEQ/L CALCIUM (test code = 2209) 9.7 MG/DL PROTEIN, TOTAL (test code = 2229) 7.3 G/DL ALBUMIN (test code = 2201) 4.8 G/DL CALC GLOBULIN (test code = 2240) 2.5 G/DL CALC A/G RATIO (test code = 2234) 1.9 RATIO BILIRUBIN, TOTAL (test code = 2207) 0.2 MG/DL ALKALINE PHOSPHATASE (test code = 2204) 102 U/L AST (test code = 2218) 14 U/L ALT (test code = 2219) 12 U/L COMPREHENSIVE METABOLIC [id number] 00:00:00* Test Item Value Reference Range Interpretation Comme nts GLUCOSE (test code = 2217) 106 MG/DL BUN (test code = 2208) 7 MG/DL CREATININE (test code = 2214) 0.57 MG/DL eGFR AMER. (test cod e = 25618) 113 ML/MIN/1.73 eGFR NON- AMER. (test code = 02963) 97 ML/MIN/1.73 CALC BUN/CREAT (test code = 2235) 12 RATIO SODIUM (test code = 2231) 141 MEQ/L POTASSIUM (test code = 2228) 4.0 MEQ/L CHLORIDE (test code = 2215) 101 MEQ/L CARBON DIOXIDE (test code = 2206) 24 MEQ/L CALCIUM (test code = 2209) 9.7 MG/DL PROTEIN, TOTAL (test code = 2229) 7.3 G/DL ALBUMIN (test code = 2201) 4.8 G/DL CALC GLOBULIN (test code = 2240) 2.5 G/DL CALC A/G RATIO (test code = 2234) 1.9 RATIO BILIRUBIN, TOTAL (test code = 2207) 0.2 MG/DL ALKALINE PHOSPHATASE (test code = 2204) 102 U/L AST (test code = 2218) 14 U/L ALT (test code = 2219) 12 U/L [id number] 00:00:00* Test Item Value Reference Range Interpretation Comme nts TSH, THIRD GENERATION (test code = 2821) 1.390 UIU/ML [id number] 00:00:00* Test Item Value Reference Range Interpretation Comme nts TSH, THIRD GENERATION (test code = 2821) 1.390 UIU/ML [id number] 00:00:00* Test Item Value Reference Range Interpretation Comme nts TSH, THIRD GENERATION (test code = 2821) 1.390 UIU/ML HEMOGLOBIN A1c [ADDED]2021-04-05 00:00:00* Test Item Value Reference Range Interpretation Comme nts HEMOGLOBIN A1c (test code = 40992) 5.7 % HEMOGLOBIN A1c [ADDED]2021-04-05 00:00:00* Test Item Value Reference Range Interpretation Comme nts HEMOGLOBIN A1c (test code = 10346) 5.7 % HEMOGLOBIN A1c [ADDED]2021-04-05 00:00:00* Test Item Value Reference Range Interpretation Comme nts HEMOGLOBIN A1c (test code = 77826) 5.7 % LIPID [id number] 00:00:00* Test Item Value Reference Range Interpretation Comme nts CHOLESTEROL (test code = 2210) 252 MG/DL TRIGLYCERIDES (test code = 2232) 171 MG/DL HDL CHOLESTEROL (test code = 2220) 61 MG/DL CALC LDL CHOL (test code = 2237) 159 MG/DL RISK RATIO LDL/HDL (test cod e = 2238) 2.61 RATIO LIPID [id number] 00:00:00* Test Item Value Reference Range Interpretation Comme nts CHOLESTEROL (test code = 2210) 252 MG/DL TRIGLYCERIDES (test code = 2232) 171 MG/DL HDL CHOLESTEROL (test code = 2220) 61 MG/DL CALC LDL CHOL (test code = 2237) 159 MG/DL RISK RATIO LDL/HDL (test cod e = 2238) 2.61 RATIO CBC W/AUTO [id number] 00:00:00* Test Item Value Reference Range Interpretation Comme nts WBC (test code = 1001) 7.5 K/UL [...] = 1013) 0.9 % IMMATURE GRANULOCYTES (test code = 1036) 0.7 % NUCLEATED RBCS (test code = 1065) 0.0 /100WBC'S PLATELET COUNT (test code = 1015) 232 K/UL ABSOLUTE NEUTROPHILS (test c ode = 1066) 5.11 K/UL ABSOLUTE LYMPHOCYTES (test c ode = 1067) 1.69 K/UL ABSOLUTE MONOCYTES (test cod e = 1068) 0.55 K/UL ABSOLUTE EOSINOPHILS (test c ode = 1040) 0.04 K/UL ABSOLUTE BASOPHILS (test cod e = 1069) 0.07 K/UL ABS IMMATURE GRANULOCYTES (t est code = 1020) 0.05 K/UL ABS NUCLEATED RBCS (test cod e = 12119) 0.00 K/UL CBC W/AUTO [id number] 00:00:00* Test Item Value Reference Range Interpretation Comme nts WBC (test code = 1001) 7.5 K/UL [...] = 1013) 0.9 % IMMATURE GRANULOCYTES (test code = 1036) 0.7 % NUCLEATED RBCS (test code = 1065) 0.0 /100WBC'S PLATELET COUNT (test code = 1015) 232 K/UL ABSOLUTE NEUTROPHILS (test c ode = 1066) 5.11 K/UL ABSOLUTE LYMPHOCYTES (test c ode = 1067) 1.69 K/UL ABSOLUTE MONOCYTES (test cod e = 1068) 0.55 K/UL ABSOLUTE EOSINOPHILS (test c ode = 1040) 0.04 K/UL ABSOLUTE BASOPHILS (test cod e = 1069) 0.07 K/UL ABS IMMATURE GRANULOCYTES (t est code = 1020) 0.05 K/UL ABS NUCLEATED RBCS (test cod e = 80611) 0.00 K/UL CBC W/AUTO [id number] 00:00:00* Test Item Value Reference Range Interpretation Comme nts WBC (test code = 1001) 7.5 K/UL [...] = 1013) 0.9 % IMMATURE GRANULOCYTES (test code = 1036) 0.7 % NUCLEATED RBCS (test code = 1065) 0.0 /100WBC'S PLATELET COUNT (test code = 1015) 232 K/UL ABSOLUTE NEUTROPHILS (test c ode = 1066) 5.11 K/UL ABSOLUTE LYMPHOCYTES (test c ode = 1067) 1.69 K/UL ABSOLUTE MONOCYTES (test cod e = 1068) 0.55 K/UL ABSOLUTE EOSINOPHILS (test c ode = 1040) 0.04 K/UL ABSOLUTE BASOPHILS (test cod e = 1069) 0.07 K/UL ABS IMMATURE GRANULOCYTES (t est code = 1020) 0.05 K/UL ABS NUCLEATED RBCS (test cod e = 95016) 0.00 K/UL COMPREHENSIVE METABOLIC [id number] 00:00:00* Test Item Value Reference Range Interpretation Comme nts GLUCOSE (test code = 2217) 106 MG/DL BUN (test code = 2208) 7 MG/DL CREATININE (test code = 2214) 0.57 MG/DL eGFR AMER. (test cod e = 45610) 113 ML/MIN/1.73 eGFR NON- AMER. (test code = 81184) 97 ML/MIN/1.73 CALC BUN/CREAT (test code = 2235) 12 RATIO SODIUM (test code = 2231) 141 MEQ/L POTASSIUM (test code = 2228) 4.0 MEQ/L CHLORIDE (test code = 2215) 101 MEQ/L CARBON DIOXIDE (test code = 2206) 24 MEQ/L CALCIUM (test code = 2209) 9.7 MG/DL PROTEIN, TOTAL (test code = 2229) 7.3 G/DL ALBUMIN (test code = 2201) 4.8 G/DL CALC GLOBULIN (test code = 2240) 2.5 G/DL CALC A/G RATIO (test code = 2234) 1.9 RATIO BILIRUBIN, TOTAL (test code = 2207) 0.2 MG/DL ALKALINE PHOSPHATASE (test code = 2204) 102 U/L AST (test code = 2218) 14 U/L ALT (test code = 2219) 12 U/L COMPREHENSIVE METABOLIC [id number] 00:00:00* Test Item Value Reference Range Interpretation Comme nts GLUCOSE (test code = 2217) 106 MG/DL BUN (test code = 2208) 7 MG/DL CREATININE (test code = 2214) 0.57 MG/DL eGFR AMER. (test cod e = 47215) 113 ML/MIN/1.73 eGFR NON- AMER. (test code = 20691) 97 ML/MIN/1.73 CALC BUN/CREAT (test code = 2235) 12 RATIO SODIUM (test code = 2231) 141 MEQ/L POTASSIUM (test code = 2228) 4.0 MEQ/L CHLORIDE (test code = 2215) 101 MEQ/L CARBON DIOXIDE (test code = 2206) 24 MEQ/L CALCIUM (test code = 2209) 9.7 MG/DL PROTEIN, TOTAL (test code = 2229) 7.3 G/DL ALBUMIN (test code = 2201) 4.8 G/DL CALC GLOBULIN (test code = 2240) 2.5 G/DL CALC A/G RATIO (test code = 2234) 1.9 RATIO BILIRUBIN, TOTAL (test code = 2207) 0.2 MG/DL ALKALINE PHOSPHATASE (test code = 2204) 102 U/L AST (test code = 2218) 14 U/L ALT (test code = 2219) 12 U/L [id number] 00:00:00* Test Item Value Reference Range Interpretation Comme nts TSH, THIRD GENERATION (test code = 2821) 1.390 UIU/ML [id number] 00:00:00* Test Item Value Reference Range Interpretation Comme nts TSH, THIRD GENERATION (test code = 2821) 1.390 UIU/ML [id number] 00:00:00* Test Item Value Reference Range Interpretation Comme nts TSH, THIRD GENERATION (test code = 2821) 1.390 UIU/ML HEMOGLOBIN A1c [ADDED]2021-04-05 00:00:00* Test Item Value Reference Range Interpretation Comme nts HEMOGLOBIN A1c (test code = 82962) 5.7 % HEMOGLOBIN A1c [ADDED]2021-04-05 00:00:00* Test Item Value Reference Range Interpretation Comme nts HEMOGLOBIN A1c (test code = 27929) 5.7 % HEMOGLOBIN A1c [ADDED]2021-04-05 00:00:00* Test Item Value Reference Range Interpretation Comme nts HEMOGLOBIN A1c (test code = 60261) 5.7 % CBC W/AUTO [id number] 00:00:00* Test Item Value Reference Range Interpretation Comme nts WBC (test code = 1001) 8.1 K/UL [...] code = 1015) 249 K/UL CBC W/AUTO [id number] 00:00:00* Test Item Value Reference Range Interpretation Comme nts WBC (test code = 1001) 8.1 K/UL [...] code = 1015) 249 K/UL CBC W/AUTO [id number] 00:00:00* Test Item Value Reference Range Interpretation Comme nts WBC (test code = 1001) 8.1 K/UL [...] (test code = 1015) 249 K/UL HEMOGLOBIN [id number] 00:00:00* Test Item Value Reference Range Interpretation Comme nts HEMOGLOBIN A1c (test code = 08020) 5.7 % HEMOGLOBIN [id number] 00:00:00* Test Item Value Reference Range Interpretation Comme nts HEMOGLOBIN A1c (test code = 72118) 5.7 % HEMOGLOBIN [id number] 00:00:00* Test Item Value Reference Range Interpretation Comme nts HEMOGLOBIN A1c (test code = 65358) 5.7 % LIPID [id number] 00:00:00* Test Item Value Reference Range Interpretation Comme nts CHOLESTEROL (test code = 2210) 166 MG/DL TRIGLYCERIDES (test code = 2232) 209 MG/DL HDL CHOLESTEROL (test code = 2220) 47 MG/DL CALC LDL CHOL (test code = 2237) 89 MG/DL RISK RATIO LDL/HDL (test cod e = 2238) 1.89 RATIO LIPID [id number] 00:00:00* Test Item Value Reference Range Interpretation Comme nts CHOLESTEROL (test code = 2210) 166 MG/DL TRIGLYCERIDES (test code = 2232) 209 MG/DL HDL CHOLESTEROL (test code = 2220) 47 MG/DL CALC LDL CHOL (test code = 2237) 89 MG/DL RISK RATIO LDL/HDL (test cod e = 2238) 1.89 RATIO COMPREHENSIVE METABOLIC [id number] 00:00:00* Test Item Value Reference Range Interpretation Comme nts GLUCOSE (test code = 2217) 106 MG/DL BUN (test code = 2208) 10 MG/DL CREATININE (test code = 2214) 0.64 MG/DL eGFR AMER. (test cod e = 44480) 110 ML/MIN/1.73 eGFR NON- AMER. (test code = 23746) 95 ML/MIN/1.73 CALC BUN/CREAT (test code = 2235) 16 RATIO SODIUM (test code = 2231) 141 MEQ/L POTASSIUM (test code = 2228) 3.9 MEQ/L CHLORIDE (test code = 2215) 98 MEQ/L CARBON DIOXIDE (test code = 2206) 30 MEQ/L CALCIUM (test code = 2209) 10.1 MG/DL PROTEIN, TOTAL (test code = 2229) 7.7 G/DL ALBUMIN (test code = 2201) 5.2 G/DL CALC GLOBULIN (test code = 2240) 2.5 G/DL CALC A/G RATIO (test code = 2234) 2.1 RATIO BILIRUBIN, TOTAL (test code = 2207) 0.3 MG/DL ALKALINE PHOSPHATASE (test code = 2204) 111 U/L AST (test code = 2218) 16 U/L ALT (test code = 2219) 19 U/L COMPREHENSIVE METABOLIC [id number] 00:00:00* Test Item Value Reference Range Interpretation Comme nts GLUCOSE (test code = 2217) 106 MG/DL BUN (test code = 2208) 10 MG/DL CREATININE (test code = 2214) 0.64 MG/DL eGFR AMER. (test cod e = 30012) 110 ML/MIN/1.73 eGFR NON- AMER. (test code = 91895) 95 ML/MIN/1.73 CALC BUN/CREAT (test code = 2235) 16 RATIO SODIUM (test code = 2231) 141 MEQ/L POTASSIUM (test code = 2228) 3.9 MEQ/L CHLORIDE (test code = 2215) 98 MEQ/L CARBON DIOXIDE (test code = 2206) 30 MEQ/L CALCIUM (test code = 2209) 10.1 MG/DL PROTEIN, TOTAL (test code = 2229) 7.7 G/DL ALBUMIN (test code = 2201) 5.2 G/DL CALC GLOBULIN (test code = 2240) 2.5 G/DL CALC A/G RATIO (test code = 2234) 2.1 RATIO BILIRUBIN, TOTAL (test code = 2207) 0.3 MG/DL ALKALINE PHOSPHATASE (test code = 2204) 111 U/L AST (test code = 2218) 16 U/L ALT (test code = 2219) 19 U/L [id number] 00:00:00* Test Item Value Reference Range Interpretation Comme nts TSH, THIRD GENERATION (test code = 2821) 1.690 UIU/ML [id number] 00:00:00* Test Item Value Reference Range Interpretation Comme nts TSH, THIRD GENERATION (test code = 2821) 1.690 UIU/ML [id number] 00:00:00* Test Item Value Reference Range Interpretation Comme nts TSH, THIRD GENERATION (test code = 2821) 1.690 UIU/ML CBC W/AUTO [id number] 00:00:00* Test Item Value Reference Range Interpretation Comme nts WBC (test code = 1001) 8.1 K/UL [...] code = 1015) 249 K/UL CBC W/AUTO [id number] 00:00:00* Test Item Value Reference Range Interpretation Comme nts WBC (test code = 1001) 8.1 K/UL [...] code = 1015) 249 K/UL CBC W/AUTO [id number] 00:00:00* Test Item Value Reference Range Interpretation Comme nts WBC (test code = 1001) 8.1 K/UL [...] (test code = 1015) 249 K/UL HEMOGLOBIN [id number] 00:00:00* Test Item Value Reference Range Interpretation Comme nts HEMOGLOBIN A1c (test code = 20756) 5.7 % HEMOGLOBIN [id number] 00:00:00* Test Item Value Reference Range Interpretation Comme nts HEMOGLOBIN A1c (test code = 08451) 5.7 % HEMOGLOBIN [id number] 00:00:00* Test Item Value Reference Range Interpretation Comme nts HEMOGLOBIN A1c (test code = 26235) 5.7 % LIPID [id number] 00:00:00* Test Item Value Reference Range Interpretation Comme nts CHOLESTEROL (test code = 2210) 166 MG/DL TRIGLYCERIDES (test code = 2232) 209 MG/DL HDL CHOLESTEROL (test code = 2220) 47 MG/DL CALC LDL CHOL (test code = 2237) 89 MG/DL RISK RATIO LDL/HDL (test cod e = 2238) 1.89 RATIO LIPID [id number] 00:00:00* Test Item Value Reference Range Interpretation Comme nts CHOLESTEROL (test code = 2210) 166 MG/DL TRIGLYCERIDES (test code = 2232) 209 MG/DL HDL CHOLESTEROL (test code = 2220) 47 MG/DL CALC LDL CHOL (test code = 2237) 89 MG/DL RISK RATIO LDL/HDL (test cod e = 2238) 1.89 RATIO COMPREHENSIVE METABOLIC [id number] 00:00:00* Test Item Value Reference Range Interpretation Comme nts GLUCOSE (test code = 2217) 106 MG/DL BUN (test code = 2208) 10 MG/DL CREATININE (test code = 2214) 0.64 MG/DL eGFR AMER. (test cod e = 11664) 110 ML/MIN/1.73 eGFR NON- AMER. (test code = 97825) 95 ML/MIN/1.73 CALC BUN/CREAT (test code = 2235) 16 RATIO SODIUM (test code = 2231) 141 MEQ/L POTASSIUM (test code = 2228) 3.9 MEQ/L CHLORIDE (test code = 2215) 98 MEQ/L CARBON DIOXIDE (test code = 2206) 30 MEQ/L CALCIUM (test code = 2209) 10.1 MG/DL PROTEIN, TOTAL (test code = 2229) 7.7 G/DL ALBUMIN (test code = 2201) 5.2 G/DL CALC GLOBULIN (test code = 2240) 2.5 G/DL CALC A/G RATIO (test code = 2234) 2.1 RATIO BILIRUBIN, TOTAL (test code = 2207) 0.3 MG/DL ALKALINE PHOSPHATASE (test code = 2204) 111 U/L AST (test code = 2218) 16 U/L ALT (test code = 2219) 19 U/L COMPREHENSIVE METABOLIC [id number] 00:00:00* Test Item Value Reference Range Interpretation Comme nts GLUCOSE (test code = 2217) 106 MG/DL BUN (test code = 2208) 10 MG/DL CREATININE (test code = 2214) 0.64 MG/DL eGFR AMER. (test cod e = 19606) 110 ML/MIN/1.73 eGFR NON- AMER. (test code = 15904) 95 ML/MIN/1.73 CALC BUN/CREAT (test code = 2235) 16 RATIO SODIUM (test code = 2231) 141 MEQ/L POTASSIUM (test code = 2228) 3.9 MEQ/L CHLORIDE (test code = 2215) 98 MEQ/L CARBON DIOXIDE (test code = 2206) 30 MEQ/L CALCIUM (test code = 2209) 10.1 MG/DL PROTEIN, TOTAL (test code = 2229) 7.7 G/DL ALBUMIN (test code = 2201) 5.2 G/DL CALC GLOBULIN (test code = 2240) 2.5 G/DL CALC A/G RATIO (test code = 2234) 2.1 RATIO BILIRUBIN, TOTAL (test code = 2207) 0.3 MG/DL ALKALINE PHOSPHATASE (test code = 2204) 111 U/L AST (test code = 2218) 16 U/L ALT (test code = 2219) 19 U/L [id number] 00:00:00* Test Item Value Reference Range Interpretation Comme nts TSH, THIRD GENERATION (test code = 2821) 1.690 UIU/ML [id number] 00:00:00* Test Item Value Reference Range Interpretation Comme nts TSH, THIRD GENERATION (test code = 2821) 1.690 UIU/ML [id number] 00:00:00* Test Item Value Reference Range Interpretation Comme nts TSH, THIRD GENERATION (test code = 2821) 1.690 UIU/ML CBC W/AUTO [id number] 00:00:00* Test Item Value Reference Range Interpretation Comme nts WBC (test code = 1001) 8.1 K/UL [...] code = 1015) 249 K/UL CBC W/AUTO [id number] 00:00:00* Test Item Value Reference Range Interpretation Comme nts WBC (test code = 1001) 8.1 K/UL [...] code = 1015) 249 K/UL CBC W/AUTO [id number] 00:00:00* Test Item Value Reference Range Interpretation Comme nts WBC (test code = 1001) 8.1 K/UL [...] (test code = 1015) 249 K/UL HEMOGLOBIN [id number] 00:00:00* Test Item Value Reference Range Interpretation Comme nts HEMOGLOBIN A1c (test code = 46445) 5.7 % HEMOGLOBIN [id number] 00:00:00* Test Item Value Reference Range Interpretation Comme nts HEMOGLOBIN A1c (test code = 18058) 5.7 % HEMOGLOBIN [id number] 00:00:00* Test Item Value Reference Range Interpretation Comme nts HEMOGLOBIN A1c (test code = 05456) 5.7 % LIPID [id number] 00:00:00* Test Item Value Reference Range Interpretation Comme nts CHOLESTEROL (test code = 2210) 166 MG/DL TRIGLYCERIDES (test code = 2232) 209 MG/DL HDL CHOLESTEROL (test code = 2220) 47 MG/DL CALC LDL CHOL (test code = 2237) 89 MG/DL RISK RATIO LDL/HDL (test cod e = 2238) 1.89 RATIO LIPID [id number] 00:00:00* Test Item Value Reference Range Interpretation Comme nts CHOLESTEROL (test code = 2210) 166 MG/DL TRIGLYCERIDES (test code = 2232) 209 MG/DL HDL CHOLESTEROL (test code = 2220) 47 MG/DL CALC LDL CHOL (test code = 2237) 89 MG/DL RISK RATIO LDL/HDL (test cod e = 2238) 1.89 RATIO COMPREHENSIVE METABOLIC [id number] 00:00:00* Test Item Value Reference Range Interpretation Comme nts GLUCOSE (test code = 2217) 106 MG/DL BUN (test code = 2208) 10 MG/DL CREATININE (test code = 2214) 0.64 MG/DL eGFR AMER. (test cod e = 22983) 110 ML/MIN/1.73 eGFR NON- AMER. (test code = 85096) 95 ML/MIN/1.73 CALC BUN/CREAT (test code = 2235) 16 RATIO SODIUM (test code = 2231) 141 MEQ/L POTASSIUM (test code = 2228) 3.9 MEQ/L CHLORIDE (test code = 2215) 98 MEQ/L CARBON DIOXIDE (test code = 2206) 30 MEQ/L CALCIUM (test code = 2209) 10.1 MG/DL PROTEIN, TOTAL (test code = 2229) 7.7 G/DL ALBUMIN (test code = 2201) 5.2 G/DL CALC GLOBULIN (test code = 2240) 2.5 G/DL CALC A/G RATIO (test code = 2234) 2.1 RATIO BILIRUBIN, TOTAL (test code = 2207) 0.3 MG/DL ALKALINE PHOSPHATASE (test code = 2204) 111 U/L AST (test code = 2218) 16 U/L ALT (test code = 2219) 19 U/L COMPREHENSIVE METABOLIC [id number] 00:00:00* Test Item Value Reference Range Interpretation Comme nts GLUCOSE (test code = 2217) 106 MG/DL BUN (test code = 2208) 10 MG/DL CREATININE (test code = 2214) 0.64 MG/DL eGFR AMER. (test cod e = 15255) 110 ML/MIN/1.73 eGFR NON- AMER. (test code = 86348) 95 ML/MIN/1.73 CALC BUN/CREAT (test code = 2235) 16 RATIO SODIUM (test code = 2231) 141 MEQ/L POTASSIUM (test code = 2228) 3.9 MEQ/L CHLORIDE (test code = 2215) 98 MEQ/L CARBON DIOXIDE (test code = 2206) 30 MEQ/L CALCIUM (test code = 2209) 10.1 MG/DL PROTEIN, TOTAL (test code = 2229) 7.7 G/DL ALBUMIN (test code = 2201) 5.2 G/DL CALC GLOBULIN (test code = 2240) 2.5 G/DL CALC A/G RATIO (test code = 2234) 2.1 RATIO BILIRUBIN, TOTAL (test code = 2207) 0.3 MG/DL ALKALINE PHOSPHATASE (test code = 2204) 111 U/L AST (test code = 2218) 16 U/L ALT (test code = 2219) 19 U/L [id number] 00:00:00* Test Item Value Reference Range Interpretation Comme nts TSH, THIRD GENERATION (test code = 2821) 1.690 UIU/ML [id number] 00:00:00* Test Item Value Reference Range Interpretation Comme nts TSH, THIRD GENERATION (test code = 2821) 1.690 UIU/ML [id number] 00:00:00* Test Item Value Reference Range Interpretation Comme nts TSH, THIRD GENERATION (test code = 2821) 1.690 UIU/ML CBC W/AUTO [id number] 00:00:00* Test Item Value Reference Range Interpretation Comme nts WBC (test code = 1001) 8.1 K/UL [...] code = 1015) 249 K/UL CBC W/AUTO [id number] 00:00:00* Test Item Value Reference Range Interpretation Comme nts WBC (test code = 1001) 8.1 K/UL [...] code = 1015) 249 K/UL CBC W/AUTO [id number] 00:00:00* Test Item Value Reference Range Interpretation Comme nts WBC (test code = 1001) 8.1 K/UL [...] (test code = 1015) 249 K/UL HEMOGLOBIN [id number] 00:00:00* Test Item Value Reference Range Interpretation Comme nts HEMOGLOBIN A1c (test code = 87704) 5.7 % HEMOGLOBIN [id number] 00:00:00* Test Item Value Reference Range Interpretation Comme nts HEMOGLOBIN A1c (test code = 12643) 5.7 % HEMOGLOBIN [id number] 00:00:00* Test Item Value Reference Range Interpretation Comme nts HEMOGLOBIN A1c (test code = 10252) 5.7 % LIPID [id number] 00:00:00* Test Item Value Reference Range Interpretation Comme nts CHOLESTEROL (test code = 2210) 166 MG/DL TRIGLYCERIDES (test code = 2232) 209 MG/DL HDL CHOLESTEROL (test code = 2220) 47 MG/DL CALC LDL CHOL (test code = 2237) 89 MG/DL RISK RATIO LDL/HDL (test cod e = 2238) 1.89 RATIO LIPID [id number] 00:00:00* Test Item Value Reference Range Interpretation Comme nts CHOLESTEROL (test code = 2210) 166 MG/DL TRIGLYCERIDES (test code = 2232) 209 MG/DL HDL CHOLESTEROL (test code = 2220) 47 MG/DL CALC LDL CHOL (test code = 2237) 89 MG/DL RISK RATIO LDL/HDL (test cod e = 2238) 1.89 RATIO COMPREHENSIVE METABOLIC [id number] 00:00:00* Test Item Value Reference Range Interpretation Comme nts GLUCOSE (test code = 2217) 106 MG/DL BUN (test code = 2208) 10 MG/DL CREATININE (test code = 2214) 0.64 MG/DL eGFR AMER. (test cod e = 44998) 110 ML/MIN/1.73 eGFR NON- AMER. (test code = 95210) 95 ML/MIN/1.73 CALC BUN/CREAT (test code = 2235) 16 RATIO SODIUM (test code = 2231) 141 MEQ/L POTASSIUM (test code = 2228) 3.9 MEQ/L CHLORIDE (test code = 2215) 98 MEQ/L CARBON DIOXIDE (test code = 2206) 30 MEQ/L CALCIUM (test code = 2209) 10.1 MG/DL PROTEIN, TOTAL (test code = 2229) 7.7 G/DL ALBUMIN (test code = 2201) 5.2 G/DL CALC GLOBULIN (test code = 2240) 2.5 G/DL CALC A/G RATIO (test code = 2234) 2.1 RATIO BILIRUBIN, TOTAL (test code = 2207) 0.3 MG/DL ALKALINE PHOSPHATASE (test code = 2204) 111 U/L AST (test code = 2218) 16 U/L ALT (test code = 2219) 19 U/L COMPREHENSIVE METABOLIC [id number] 00:00:00* Test Item Value Reference Range Interpretation Comme nts GLUCOSE (test code = 2217) 106 MG/DL BUN (test code = 2208) 10 MG/DL CREATININE (test code = 2214) 0.64 MG/DL eGFR AMER. (test cod e = 26329) 110 ML/MIN/1.73 eGFR NON- AMER. (test code = 72105) 95 ML/MIN/1.73 CALC BUN/CREAT (test code = 2235) 16 RATIO SODIUM (test code = 2231) 141 MEQ/L POTASSIUM (test code = 2228) 3.9 MEQ/L CHLORIDE (test code = 2215) 98 MEQ/L CARBON DIOXIDE (test code = 2206) 30 MEQ/L CALCIUM (test code = 2209) 10.1 MG/DL PROTEIN, TOTAL (test code = 2229) 7.7 G/DL ALBUMIN (test code = 2201) 5.2 G/DL CALC GLOBULIN (test code = 2240) 2.5 G/DL CALC A/G RATIO (test code = 2234) 2.1 RATIO BILIRUBIN, TOTAL (test code = 2207) 0.3 MG/DL ALKALINE PHOSPHATASE (test code = 2204) 111 U/L AST (test code = 2218) 16 U/L ALT (test code = 2219) 19 U/L [id number] 00:00:00* Test Item Value Reference Range Interpretation Comme nts TSH, THIRD GENERATION (test code = 2821) 1.690 UIU/ML [id number] 00:00:00* Test Item Value Reference Range Interpretation Comme nts TSH, THIRD GENERATION (test code = 2821) 1.690 UIU/ML [id number] 00:00:00* Test Item Value Reference Range Interpretation Comme nts TSH, THIRD GENERATION (test code = 2821) 1.690 UIU/ML
[2023-06-09] MEDS ORDERED: MORPHINE 4 MG/ML SYR ONE (17:20)
[2023-06-09] MEDS ORDERED: METOCLOPRAMIDE 10 MG/2mL INJ ONE (17:20)
[2023-06-09] MEDS ORDERED: DIPHENHYDRAMINE 50 MG/ML VIAL ONE (17:20)
[2023-06-09] MEDS ORDERED: NA CHLORIDE 0.9% 1,000 ML ONE ×2 (17:21→23:58)
[2023-06-09 18:01] LABS: Absolute Lymphocytes (CBC) 0.7 K/uL (0.7-4.9); Hematocrit 46.7 % (36.0-45.0); Lymphocytes % 7.6 % (15.3-44.8); MCV 93.4 fL (80-100); MPV 7.2 fL (7.6-11.3); Platelets 252 thou/uL (152-406); RBC Red Blood Cell Count 4.99 M/uL (3.86-4.86)
[2023-06-09 18:23] LABS: Albumin 4.2 g/dL (3.4-5.0); Bilirubin Total 0.5 mg/dL (0.2-1.0); Potassium 3.5 mEq/L (3.5-5.1); Protein, Total 8.3 g/dL (6.4-8.2)
--- NOTE | 2023-06-09 19:29 | RAD REPORT ---
EXAM DESCRIPTION: CT - Abdomen Pelvis W Contrast - 06/09/2023 6:59 pm CLINICAL HISTORY: ABD PAIN COMPARISON: Abdomen Pelvis W Contrast dated 09/27/2022 TECHNIQUE: Thin cut axial CT imaging of the abdomen and pelvis was performed following intravenous a dministration of 100 mL Isovue 300. Multiplanar reformats were generated and reviewed. All CT scans are performed using dose optimization technique as appropriate and may include automated exposure control or mA/KV adjustment according to patient size. FINDINGS: No suspicious findings in the lung bases. The liver, spleen, adrenal glands, and pancreas show no suspicious findings. Gallbladder was surgical ly removed. Symmetric renal function is seen with no hydronephrosis or suspicious renal mass. No dilated bowel loops or bowel wall thickening. Small bowel anastomosis present in the right lower q uadrant. No free air, free fluid or inflammatory stranding. No hernia, mass or bulky lymphadenopathy. The urinary bladder is without significant finding. No suspicious bony findings. IMPRESSION: No acute intra-abdominal process.
[2023-06-09] MEDS ORDERED: PROMETHAZINE INJ 25 MG/ML AMP ONE (20:09)
--- NOTE | 2023-06-09 20:20 | EDPHYS ---
Physician Documentation [facility] Name: Delmi Pool Age: 68 yrs Sex: Female : 1955 Arrival Date: 06/09/2023 Time: 16:47 Bed 18 Private MD: ED Physician Brendon Lora HPI: 06/09 19:55 This 68 yrs old Female presents to ER via EMS with complaints of Abdominal Pain. rt 19:55 Patient presents to the ED with abdominal pain, nausea vomiting for about 2 days. rt States that she has not been able to keep anything down by mouth. Denies other acute complaint, other aggravating factors, symptoms are moderate severity.. Historical: - Allergies: 16:56 Toradol; bp 16:56 tramadol; bp - PMHx: 16:56 Hypercholesterolemia; Hypertensive disorder; neuropathy; Diabetes mellitus; bp - PSHx: 16:56 Appendectomy; Bowel Retracement; section; Cholecystectomy; bp - Immunization history:: Adult Immunizations up to date. - Social history:: Smoking status: Patient denies any tobacco usage or history of. - Family history:: not pertinent. ROS: 19:55 Constitutional: Negative for fever, chills, and weight loss, Cardiovascular: Negative rt for chest pain, palpitations, and edema, Respiratory: Negative for shortness of breath, cough, wheezing, and pleuritic chest pain, MS/Extremity: Negative for injury and deformity, Skin: Negative for injury, rash, and discoloration, Neuro: Negative for headache, weakness, numbness, tingling, and seizure, Psych: Negative for depression, anxiety, suicide ideation, homicidal ideation, and hallucinations, 19:55 Abdomen/GI: Positive for abdominal pain, nausea and vomiting, Negative for diarrhea, Exam: 19:55 Constitutional: This is a well developed, well nourished patient who is awake, alert, rt and in no acute distress. Head/Face: Normocephalic, atraumatic. Chest/axilla: Normal chest wall appearance and motion. Nontender with no deformity. No lesions are appreciated. Cardiovascular: Regular rate and rhythm with a normal S1 and S2. No gallops, murmurs, or rubs. Normal PMI, no JVD. No pulse deficits. Respiratory: Lungs have equal breath sounds bilaterally, clear to auscultation and percussion. No rales, rhonchi or wheezes noted. No increased work of breathing, no retractions or nasal flaring. Skin: Warm, dry with normal turgor. Normal color with no rashes, no lesions, and no evidence of cellulitis. MS/ Extremity: Pulses equal, no cyanosis. Neurovascular intact. Full, normal range of motion. Neuro: Awake and alert, GCS 15, oriented to person, place, time, and situation. Cranial nerves II-XII grossly intact. Motor strength 5/5 in all extremities. Sensory grossly intact. Cerebellar exam normal. Normal gait. Psych: Awake, alert, with orientation to person, place and time. Behavior, mood, and affect are within normal limits. 19:55 Abdomen/GI: Mild tenderness diffusely without rebound, guarding, distention, Vital Signs: 16:55 BP 165 / 80; Pulse 89; Resp 16; Temp 98.2; Pulse Ox 98% ; bp 19:59 BP 139 / 62; Pulse 88; Resp 16; Pulse Ox 97% ; bp MDM: 16:56 Patient medically screened. rt 19:55 Differential diagnosis: Bowel obstruction, perforated viscus, nausea, vomiting, rt electrolyte disturbance. Data reviewed: vital signs, nurses notes, lab test result(s), radiologic studies. Consideration of Admission/Observation Patient was admitted/placed on observation. Management of patient was discussed with the following: Hospitalist: Agrees to admit. I considered the following discharge prescriptions or medication management in the emergency department Medications were administered in the Emergency Department. See MAR. Independent interpretation of the following test(s) in the Emergency Department CT Scan: My interpretation is No bowel obstruction some interpretation of CT scan images. Care significantly affected by the following chronic conditions: Diabetes, Hypertension. Counseling: I had a detailed discussion with the patient and/or guardian regarding the historical points, exam findings, and any diagnostic results supporting the discharge/admit diagnosis, lab results, radiology results, the need for further work-up and treatment in the hospital. Response to treatment: the patient's symptoms have mildly improved after treatment. 06/09 17: Order name: CBC with Diff rt 06/09 17: Order name: CMP; Complete Time: 18:57 rt 06/09 17: Order name: Lipase; Complete Time: 18:57 rt 06/09 17:01 Order name: Urinalysis w/ reflexes rt 06/09 18:18 Order name: CBC Smear Scan EDMS 06/09 21:06 Order name: Urinalysis w/ reflexes EDMS 06/09 21:06 Order name: CBC with Automated Diff EDMS 06/09 21:06 Order name: CBC with Automated Diff EDMS 06/09 21:06 Order name: Comprehensive Metabolic Panel EDMS 06/09 21:07 Order name: Comprehensive Metabolic Panel EDMS 06/09 21:07 Order name: Magnesium EDMS 06/09 21:07 Order name: Magnesium EDMS 06/09 21:48 Order name: Osmolality, Urine EDMS 06/09 21:48 Order name: UR SODIUM EDMS 06/09 21:48 Order name: Uric Acid EDMS 06/10 07:34 Order name: Glucose, Ancillary Testing EDMS 06/09 17:01 Order name: CT Abd/Pelvis - IV Contrast Only; Complete Time: 19:30 rt 06/09 17:01 Order name: IV Saline Lock; Complete Time: 17:58 rt 06/09 17:01 Order name: Labs collected and sent; Complete Time: 17:58 rt Administered Medications: 17:45 Drug: NS 0.9% IV 1000 ml IV at 1 bolus Per protocol; 1000 mL bolus Route: IV; Rate: 1 nj1 bolus; Site: right antecubital; 06/10 02:41 Follow up: IV Status: Completed infusion; IV Intake: 1000ml [facility] 06/09 17:45 Drug: diphenhydrAMINE IVP 25 mg IVP once Route: IVP; Site: right antecubital; [facility] 06/10 02:41 Follow up: Response: No adverse reaction [facility] 06/09 17:46 Drug: metoCLOPramide IVP 10 mg IVP once; over 1 to 2 minutes Route: IVP; Site: right [facility] antecubital; 06/10 02:41 Follow up: Response: No adverse reaction [facility] 06/09 17:48 Drug: morphine IVP or IV 4 mg IVP once over 4 mins Route: IVP; Infused Over: 4 mins; [facility] Site: right antecubital; 06/10 02:41 Follow up: Response: No adverse reaction [facility] 06/09 20:15 Drug: Promethazine IVP 12.5 mg IVP once Route: IVP; Site: right antecubital; 7 06/10 02:40 Follow up: Response: No adverse reaction lg3 Disposition Summary: 06/09/23 20:19 Hospitalization Ordered Notes: Hospitalization Status: Observation rt Provider: Hang Araujo rt Condition: Fair rt Problem: new rt Symptoms: have improved rt Bed/Room Type: Standard rt Location: Telemetry/MedSurg (observation)(06/10/23 16:07) bd Room Assignment: (06/10/23 16:40) bd Diagnosis - Intractable nausea and vomiting rt - Hypo-osmolality and hyponatremia rt Forms: - Medication Reconciliation Form rt - SBAR form rt - Leadership Thank You Letter rt Signatures: Dispatcher [employer] EDMS Rhona Argueta bd Steven John RN RN Tami Pete RN RN jw7 Brendon Lora MD MD rt Donna Hyatt rv1 Flor Briscoe RN RN nj1 Sidra Finn RN lg3 Corrections: (The following items were deleted from the chart) 06/09 20:50 20:19 Telemetry/MedSurg (observation) rt rv1 20:50 20:19 rt rv1 06/10 16:07 06/09 20:50 [facility] ER HOLD rv1 bd 06/10 16:07 06/09 20:50 ERHOLD- rv1 bd 06/10 16:40 16:07 221 bd bd
--- NOTE | 2023-06-09 20:20 | ER ---
Nurse's Notes [facility] Name: Delmi Pool Age: 68 yrs Sex: Female : 1955 Arrival Date: 06/09/2023 Time: 16:47 Bed 18 Private MD: Diagnosis: Intractable nausea and vomiting;Hypo-osmolality and hyponatremia Presentation: 06/09 16:55 Chief complaint: EMS states: DIFFUSE ABDOMINAL PAIN x2 DAYS. Coronavirus screen: At bp this time, the client does not indicate any symptoms associated with coronavirus-19. Ebola Screen: No symptoms or risks identified at this time. Initial Sepsis Screen: Does the patient meet any 2 criteria? No. Patient's initial sepsis screen is negative. Does the patient have a suspected source of infection? No. Patient's initial sepsis screen is negative. Risk Assessment: Do you want to hurt yourself or someone else? Patient reports no desire to harm self or others. Onset of symptoms is unknown. Care prior to arrival: Medication(s) given: zofran 4 mg. 16:55 Method Of Arrival: EMS: [facility] bp 16:55 Acuity: GILBERTO 3 bp Triage Assessment: 16:56 General: Appears uncomfortable, Behavior is cooperative, appropriate for age, anxious. bp Pain: Complains of pain in abdomen. GI: Abdomen is non-distended. Historical: - Allergies: 16:56 Toradol; bp 16:56 tramadol; bp - PMHx: 16:56 Hypercholesterolemia; Hypertensive disorder; neuropathy; Diabetes mellitus; bp - PSHx: 16:56 Appendectomy; Bowel Retracement; section; Cholecystectomy; bp - Immunization history:: Adult Immunizations up to date. - Social history:: Smoking status: Patient denies any tobacco usage or history of. - Family history:: not pertinent. Screenin:57 [facility] ED Fall Risk Assessment (Adult) History of falling in the last 3 months, bp including since admission No falls in past 3 months (0 pts). Abuse screen: Denies threats or abuse. Denies injuries from another. Nutritional screening: No deficits noted. Tuberculosis screening: No symptoms or risk factors identified. Assessment: 17:00 General: SEE TRIAGE NOTE. bp 19:00 Reassessment: No changes from previously documented assessment. Patient is alert, bp oriented x 3, equal unlabored respirations, skin warm/dry/pink. Vital Signs: 16:55 BP 165 / 80; Pulse 89; Resp 16; Temp 98.2; Pulse Ox 98% ; bp 19:59 BP 139 / 62; Pulse 88; Resp 16; Pulse Ox 97% ; bp ED Course: 16:54 Patient arrived in ED. bp 16:55 Brendon Lora MD is Attending Physician. rt 16:55 Triage completed. bp 16:56 Arm band placed on. bp 16:57 Steven John, UBALDO is Primary Nurse. bp 16:57 Patient has correct armband on for positive identification. Bed in low position. Call bp light in reach. Side rails up X2. 17:45 Inserted saline lock: 20 gauge in right antecubital area, using aseptic technique. nj1 ,using aseptic technique. Ultrasound guided. Catheter tip well visualized within vasculature during placement. Blood collected. 19:01 CT Abd/Pelvis - IV Contrast Only In Process Unspecified. EDMS 20:19 Hang Araujo MD is Hospitalizing Provider. rt 23:51 No provider procedures requiring assistance completed. Patient admitted, IV remains in lg3 place. Administered Medications: 17:45 Drug: NS 0.9% IV 1000 ml IV at 1 bolus Per protocol; 1000 mL bolus Route: IV; Rate: 1 nj1 bolus; Site: right antecubital; 06/10 02:41 Follow up: IV Status: Completed infusion; IV Intake: 1000ml [facility] 06/09 17:45 Drug: diphenhydrAMINE IVP 25 mg IVP once Route: IVP; Site: right antecubital; [facility] 06/10 02:41 Follow up: Response: No adverse reaction [facility] 06/09 17:46 Drug: metoCLOPramide IVP 10 mg IVP once; over 1 to 2 minutes Route: IVP; Site: right nj1 antecubital; 06/10 02:41 Follow up: Response: No adverse reaction [facility] 06/09 17:48 Drug: morphine IVP or IV 4 mg IVP once over 4 mins Route: IVP; Infused Over: 4 mins; [facility] Site: right antecubital; 06/10 02:41 Follow up: Response: No adverse reaction [facility] 06/09 20:15 Drug: Promethazine IVP 12.5 mg IVP once Route: IVP; Site: right antecubital; jw7 06/10 02:40 Follow up: Response: No adverse reaction lg3 Medication: 02:40 VIS not applicable for this client. lg3 Intake: 02:41 IV: 1000ml; Total: 1000ml. lg3 Outcome: 06/09 20:19 Decision to Hospitalize by Provider. rt 23:51 Admitted to ER Hold. Please see [facility] for further documentation. lg3 23:51 Condition: stable 23:51 Instructed on the need for admit, Demonstrated understanding of instructions, 06/10 16:49 Patient left the ED. bp Signatures: Dispatcher [employer] EDMS Steven John, RN RN bp Sidra Finn RN RN lg3 Tami Roth RN RN jw7 Brendon Lora MD MD rt Flor Briscoe RN RN nj1
[2023-06-09] MEDS ORDERED: PROMETHAZINE 25 MG/SUPP PR PRN (21:01)
[2023-06-09] MEDS ORDERED: SODIUM CHLORIDE 0.9% 10ML INJ IV PRN (21:52)
[2023-06-09 22:12] LABS: Blood Morphology Comment NOT SEEN (NOT SEEN); Platelet Estimate ADEQ; White Blood Cell Scan OK (OK)
--- NOTE | 2023-06-09 23:46 | P.HP ---
Certification for Inpatient With expected LOS: >2 Midnights Patient will require the following post-hospital care: None Practitioner: I am a practitioner with admitting privileges, knowledge of patient current condition, hospital course, and medical plan of care. Services: Services provided to patient in accordance with Admission requirements found in Title 42 Section 412.3 of the Code of Federal Regulations Patient History Date of Service: 06/09/23 Reason for admission: Intractable nausea and vomiting History of Present Illness: 68-year-old female patient with a history of reflux esophagitis, hypertension and chronic hyponatremia presented to the ED with 2 days of multiple episodes of nausea and vomiting, she also reported some mild diarrhea, loose stools and non-bloody. She reports cramping and intermittent generalized abdominal pain. She denied dysuria, fever, chills, cough, shortness of breath and chest pain. Patient had similar episode 2 months ago and at that time, ED work-up revealed Na of 128, volume depletion and suspicion for possible gastroenteritis. Patient has not seen GI for work-up recently. She was managed with IV fluids. Her labs when she arrived to the ED this time her labs showed Na 125, K+ 3.5 and Cl 94. Her vitals with BP of 165/80. She received Zofran 4mg, Reglan 10mg, Benadryl 25mg, Phenergan 12.5mg, Morphine 4mg and a bolus of 1L NS before her symtoms stablized. Allergies ketorolac [From Toradol] Allergy (Verified 09/27/22 18:46) Itching/Hives/Rash Sulfa (Sulfonamide Antibiotics) Allergy (Verified 08/20/14 13:11) Itching/Hives/Rash tramadol Allergy (Verified 09/27/22 18:46) Shortness of breath Home Medications: Fenofibrate 40 mg PO DAILY 09/27/22 Amlodipine [Norvasc*] 5 mg PO DAILY #30 tab 10/01/22 Hydrocodone 5/APAP 325 [[place] 5/325*] 1 tab PO Q6H PRN #20 tab 10/01/22 Mag Hydrox/Al Hydrox/Simeth [Maalox Suspension] 15 ml PO TID PRN #355 ml 10/01/22 Pantoprazole [Protonix Tab*] 40 mg PO BID #60 tab 10/01/22 metroNIDAZOLE [Flagyl] 500 mg PO Q8H 10 Days #30 tab 03/26/23 metroNIDAZOLE [Flagyl] 500 mg PO Q8H 10 Days #30 tab 03/26/23 - Past Medical/Surgical History Diabetic: No -: NIDDM2 -: SBO -: GERD -: hysterectomy -: -: bowel resection - Family History Father -: Other (see notes) Notes: thought to have from cancer Mother -: Other (see notes) Notes: spinal stenosis Brother -: Heart disease, Diabetes Notes: stents. stenosis Sister -: Blood disorders Notes: form of leukemia - Social History Alcohol use: No CD- Drugs: No Caffeine use: Yes Review of Systems 10-point ROS is otherwise unremarkable Gastrointestinal: Nausea, Vomiting, Abdominal Pain, Diarrhea Physical Examination - Vital Signs Temperature: 98.2 F Blood Pressure: 165/80 Pulse: 89 Respirations: 18 Pulse Ox (%): 98 - Physical Exam General: Moderate distress HEENT: Atraumatic, Normocephalic, PERRLA Neck: Supple Respiratory: Clear to auscultation bilaterally Cardiovascular: No edema, Normal S1 S2 Gastrointestinal: Non-distended, No tenderness, Hyperactive Musculoskeletal: No swelling, No tenderness Integumentary: No rashes Neurological: Normal speech - Studies Laboratory Data (last 24 hrs) 06/09/23 06/09/23 17:50 17:50 WBC 8.80 Hgb 16.1 H Hct 46.7 H Plt Count 252 Sodium 125 L Potassium 3.5 BUN 6 L Creatinine 0.53 L Glucose 161 H Total Bilirubin 0.5 AST 14 L ALT 24 Alkaline Phosphatase 110 Lipase 16 Assessment and Plan - Plan Intractable nausea and vomiting IV fluids, antiemetics, pain control Clear liquid diet and advance as tolerated Stool calprotetin, WBC Electrolyte replacement Pt will need GI out-patient given recurrent symptoms Acute on chronic hyponatremia Dehydration due to volume loss NS IV fluid F/u urine Na and osmolality evaluating for underlying SIADH GERD IV PPI BID - Advance Directives Does patient have a Living Will: No Does patient have a Durable POA for Healthcare: No
[2023-06-09] MEDS ORDERED: MORPHINE 2 MG/ML SYR ONE (23:57)
[2023-06-10] MEDS: NA CHLORIDE 0.9% 1,000 ML IV SCH ×2 (00:05→10:10)
[2023-06-10] MEDS: MORPHINE 2 MG/ML SYR IV PRN ×3 (00:06→08:10)
[2023-06-10 00:40] VITALS: O2SAT 98; BMI 28.8
[2023-06-10] MEDS ORDERED: ONDANSETRON 4 MG/2 ML VIAL ONE ×2 (03:29→10:12)
[2023-06-10] MEDS ORDERED: MORPHINE 2 MG/ML SYR ONE ×2 (03:30→08:02)
[2023-06-10] MEDS: ONDANSETRON 4 MG/2 ML VIAL IV PRN ×2 (04:10→10:10)
[2023-06-10 05:45] LABS: Absolute Lymphocytes (CBC) 1.4 K/uL (0.7-4.9); Hematocrit 41.2 % (36.0-45.0); MCV 92.5 fL (80-100); MPV 7.5 fL (7.6-11.3); Platelets 215 thou/uL (152-406); RBC Red Blood Cell Count 4.45 M/uL (3.86-4.86)
[2023-06-10 05:56] LABS: Albumin 3.3 g/dL (3.4-5.0); Bilirubin Total 0.5 mg/dL (0.2-1.0); Magnesium 1.7 mg/dL (1.6-2.4); Potassium 3.2 mEq/L (3.5-5.1); Protein, Total 6.5 g/dL (6.4-8.2); Uric Acid 2.7 mg/dL (2.6-6.0)
[2023-06-10 06:01] LABS: Renal Epithelial <5 /HPF (None Seen); Specific Gravity 1.007 (1.005-1.030); Urine Bacteria <20 /HPF (<20); Urine Bilirubin NEGATIVE (Negative); Urine Blood Negative (Negative); Urine Clarity Clear (Clear); Urine Color Colorless (Yellow); Urine Glucose NEGATIVE (Negative); Urine Mucus Slight /HPF (None Seen); Urine Protein 1+ (Negative); Urine RBC None Seen /HPF (None Seen); Urine Urobilinogen Normal (Normal); Urine pH 6.5 (5.0-7.0)
[2023-06-10] MEDS ORDERED: PROMETHAZINE 25 MG/SUPP PR ONE (06:59)
[2023-06-10] MEDS ORDERED: POTASSIUM CL SA 10 MEQ TAB PO ONE ×2 (07:18→08:01)
--- NOTE | 2023-06-10 07:53 | P.PN ---
Date of Service: 06/10/23 Subjective: Physical Exam: Vitals: reviewed GEN: Alert, oriented, NAD HEENT: Normal conjunctiva, sclera anicteric CV: Regular rate & rhythm, no edema Pulm: Nonlabored respiraitons, clear bilaterally ABD: Soft, nontender, nondistended MSK: No joint tenderness Integumentary: No rashes Neuro: Normal speech, normal affect Problem List: Intractable nausea and vomiting Acute on chronic hyponatremia GERD NIDDM2 Plan: Intractable nausea and vomiting CT abd/pelvis (06/09): no acute intra-abdominal process. Continue IV fluids PRN phenegran PRN analgesics / antiemetics Clear liquid diet; advance as tolerated Continue PPI replete electrolytes PRN stool studies ordered likely will need to follow up with GI as outpatient given recurrent symptoms Acute on chronic hyponatremia Dehydration due to volume loss continue IV fluids F/u urine Na and osmolality evaluating for underlying SIADH GERD continue PPI NIDDM2 accu-checks, SSI DVT ppx: lovenox
[2023-06-10] MEDS ORDERED: PANTOPRAZOLE 40 MG INJ ONE (08:01)
[2023-06-10] MEDS ORDERED: ENOXAPARIN 40 MG/0.4 ML SQ ONE (08:02)
[2023-06-10] MEDS ORDERED: PANTOPRAZOLE 40 MG INJ IVP SCH (09:00)
[2023-06-10] MEDS ORDERED: ENOXAPARIN 40 MG/0.4 ML SQ SCH (09:00)
[2023-06-10] MEDS ORDERED: NA CHLORIDE 0.9% 1,000 ML ONE (10:12)
[2023-06-10] MEDS ORDERED: METHYLPREDNISOLONE 125 MG INJ IV ONE (10:17)
[2023-06-10] MEDS ORDERED: METHYLPREDNISOLONE 40 MG INJ ONE (10:43)
[2023-06-10] MEDS ORDERED: METOCLOPRAMIDE 10 MG/2mL INJ ONE ×2 (10:43→16:41)
[2023-06-10] MEDS: METOCLOPRAMIDE 10 MG/2mL INJ IV SCH ×2 (10:58→16:30)
[2023-06-10 11:58] VITALS: BP 131/62; TEMP 99.3
== END 2023-06-10 16:50 | disposition home or self-care (01) | DRG 645 ==
LOC: ER 16:47 → ERHOLD 21:05
PROVIDERS: ADMIT Internal Medicine; ATTEND Hospitalist
DX: E22.2 Syndrome of inappropriate secretion of antidiuretic hormone (principal); E78.00 Pure hypercholesterolemia, unspecified; E11.40 Type 2 diabetes mellitus with diabetic neuropathy, unspecified; K21.9 Gastro-esophageal reflux disease without esophagitis; Z88.5 Allergy status to narcotic agent; Z90.49 Acquired absence of other specified parts of digestive tract; Z79.899 Other long term (current) drug therapy; Z90.710 Acquired absence of both cervix and uterus
CPT/HCPCS: 36415; 74177; 80053; 81001; 82947; 83690; 83735; 83935; 84300; 84550; 85025; 96361; 96374; 96375; 99285; C9113; J1200; J1650; J2270; J2405; J2550; J2765; J2920; J7030

== ENCOUNTER 2023-11-16 20:49 | Emergency (ER) | payer OTHER ==
--- OUTSIDE RECORDS SUMMARY | 2023-11-16 20:55 | XMS REPORT | Continuity of Care Document ---
Author Name Unknown Address [address] [facility] [address] [place] [address] [facility] thconnect Address 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 Name Role Phone Pcp, Patient Does Not Have A Primary Care Physic juan Doctor Unassigned, [place] Attending Clinician U Maegan Valdez MD Attending Clinician MAEGAN DENNY Attending Clinician Unavailabl e AMBREEN_FARHANA Attending Clinician Unavailable AMBREEN_SUYAPA Admitting Clinician Unavailable Payers Payer Name Policy Type Policy Number Effective Date Expirati on Date Source [facility] (MEDICARE REPLACEMENT HMO) [id number] 2022 00:00:00 Allergies, Adverse Reactions, Alerts Allergy Name Allergy Type Status Severity Reaction(s) Onset Date Inactive Date Treating Clinician Comments Source Sulfa (Sulfona mide Antibiot ics) Propensi ty to adverse reaction to drug Active 07-21 00:00: 00 NO KNOWN ALLERGIE S Drug Class Active [facility] Social History Social Habit Start Date Stop Date Quantity Comments Source Exposure to SARS-CoV-2 (event) 2022-09-27 00:00:00 2022-10-07 14:36:00 Not sure [facility] Sex Assigned At 1955 00:00:00 1955 00:00:00 [facility] Smoking Status Start Date Stop Date Source Tobacco smoking consumption unknown [facility] Medications Ordered Medication Name Filled Medication Name Start Date Stop Date Current Medication? Ordering Clinician Indication Dosage Frequency Signature (SIG) Comments Components Source triamcinolo ne acetonide (KENALOG) injection 40 mg 10-07 21:45: 00 10-07 20:33 :00 No [id number] 9108 40mg [facility] traMADoL 50 mg tablet 10-07 00:00: 00 10-15 04:59 :00 No [id number] 50mg Take 1 tablet by mouth every 6 (six) hours as needed for Pain (scale 4-6) for up to 7 days. Indication s: acute pain [facility] amLODIPine 5 mg tablet 10-01 00:00: 00 Yes 5mg Take 1 tablet by mouth in the morning. [facility] pantoprazol e 40 mg EC tablet 08-20 00:00: 00 Yes [facility] Dose Unknown 2021-05 00:00: 00 No 20 TAKE 2 TABLETS ON DAY 1 THEN TAKE 1 TABLET A DAY FOR 4 DAYS. 2021-05 00:00: 00 No 250 PREGABALIN 300 MG CAPSULE</Te xt> <Code> <Value>[id number]</Va lue> <CodingSyst em>NDC</Cod ingSystem> </Code> 2021-05- 00:00: 00 No 300 Dose Unknown 2021-05 2- 00:00: 00 No Dose Unknown 2021-05 2- 00:00: 00 No Dose Unknown 2021-05 2- 00:00: 00 No Dose Unknown 2021-05- 00:00: 00 No INHALE 1 PUFF TWICE DAILY. 2021-05- 00:00: 00 No [id number] 5 INHALE 2 PUFFS EVERY 4 TO 6 HOURS NEEDED. 2021-05- 00:00: 00 No [id number] PROAIR HFA 90 MCG INHALER</Te xt> <Code> <Value>[id number]</Va lue> <CodingSyst em>NDC</Cod ingSystem> </Code> 2021-05 2- 00:00: 00 No Dose Unknown 2021-05 2- 00:00: 00 No AMOX-CLAV 875-125 MG TABLET</Nicolás t> <Code> <Value>[id number]</Va lue> <CodingSyst em>NDC</Cod ingSystem> </Code&gt 2021-05 2- 00:00: 00 No HYDROCHLORO THIAZIDE 25 MG TAB</Text> <Code> <Value>0017 [id number]</Va lue> <CodingSyst em>NDC</Cod ingSystem> </Code& 2021-05 2- 00:00: 00 No 25 TAKE 1 TABLET AT BEDTIME. 2021-05 2 00:00: 00 No 20 Dose Unknown 2021-05 2 00:00: 00 No PREGABALIN 150 MG CAPSULE</Te xt> <Code> <Value>0022 [id number]</Va lue> <CodingSyst em>NDC</Cod ingSystem> </Code> 2021-05 2- 00:00: 00 No 150 TAKE 5 ML DAILY AT BEDTIME. 2021-05 00:00: 00 No [id number] TAKE 1 TABLET DAILY. 2021-05 2 00:00: 00 No 160 TAKE 1 CAPSULE BY MOUTH THREE TIMES DAILY 2021-05 2- 00:00: 00 No 300 Dose Unknown 2021-05 2- 00:00: 00 No TAKE 1 TABLET 4 TIMES DAILY. 2021-05 2 00:00: 00 No 800 Dose Unknown 2021-05 2 00:00: 00 No PREGABALIN 300 MG CAPSULE 2021-0 9-19 00:00: 00 No PREGABALIN 300 MG CAPSULE 2021-0 9-19 00:00: 00 No PREGABALIN 300 MG CAPSULE 2021-0 9-19 00:00: 00 No Lyrica 150 mg capsule 2021-0 8-16 00:00: 00 No 1mg &lt 2021-0 8-16 00:00: 00 No 300 Dose Unknown 0 8-16 00:00: 00 No 20 Lyrica 150 mg capsule 2021-0 8-16 00:00: 00 No 1mg &lt 2021-0 8-16 00:00: 00 No 300 Dose Unknown 0 8-16 00:00: 00 No 20 Lyrica 150 mg capsule 2-0 8-16 00:00: 00 No 1mg &lt 2022-0 8-16 00:00: 00 No 300 Dose Unknown 2021-0 8-16 00:00: 00 No 20 Dose Unknown 2021-0 8-15 00:00: 00 No 20 &lt 2022-0 8-15 00:00: 00 No 300 Dose Unknown 2021-0 8-15 00:00: 00 No 20 &lt 2022-0 8-15 00:00: 00 No 300 Dose Unknown 0 8-15 00:00: 00 No 20 &lt 2022-0 8-15 00:00: 00 No 300 azithromyci n 250 mg tablet 0 7-15 00:00: 00 No mg prednisone 20 mg tablet 0 7-15 00:00: 00 No mg Lyrica 150 mg capsule 0 7-15 00:00: 00 No 1mg TAKE 1 TABLET BY MOUTH TWICE DAILY 0 7-15 00:00: 00 No 875 Dose Unknown 0 7-15 00:00: 00 No 250 &lt 2021-0 7-15 00:00: 00 No 300 azithromyci n 250 mg tablet 0 7-15 00:00: 00 No mg prednisone 20 mg tablet 0 7-15 00:00: 00 No mg Lyrica 150 mg capsule 0 7-15 00:00: 00 No 1mg TAKE 1 TABLET BY MOUTH TWICE DAILY 0 7-15 00:00: 00 No 875 Dose Unknown 0 7-15 00:00: 00 No 250 &lt 2021-0 7-15 00:00: 00 No 300 azithromyci n 250 mg tablet 0 7-15 00:00: 00 No mg prednisone 20 mg tablet 0 7-15 00:00: 00 No mg Lyrica 150 mg capsule 0 7-15 00:00: 00 No 1mg TAKE 1 TABLET BY MOUTH TWICE DAILY 0 7-15 00:00: 00 No 875 Dose Unknown 0 7-15 00:00: 00 No 250 &lt 2-0 7-15 00:00: 00 No 300 pregabalin 300 mg capsule 2022-0 7-06 00:00: 00 No 1mg &lt 2022-0 7-06 00:00: 00 No 20 TAKE 1 TABLET BY MOUTH FOUR TIMES DAILY 2022-0 7-06 00:00: 00 No 600 &lt 2022-0 7-06 00:00: 00 No 300 Dose Unknown 2022-0 7-06 00:00: 00 No 250 pregabalin 300 mg capsule 2022-0 7-06 00:00: 00 No 1mg &lt 2022-0 7-06 00:00: 00 No 20 TAKE 1 TABLET BY MOUTH FOUR TIMES DAILY 2022-0 7-06 00:00: 00 No 600 &lt 2022-0 7-06 00:00: 00 No 300 Dose Unknown 2-0 7-06 00:00: 00 No 250 pregabalin 300 mg capsule 2-0 7-06 00:00: 00 No 1mg &lt 2022-0 7-06 00:00: 00 No 20 TAKE 1 TABLET BY MOUTH FOUR TIMES DAILY 2-0 7-06 00:00: 00 No 600 &lt 2022-0 7-06 00:00: 00 No 300 Dose Unknown 2022-0 7-06 00:00: 00 No 250 pregabalin 300 mg capsule 2022-0 6-06 00:00: 00 No 1mg &lt 2022-0 6-06 00:00: 00 No pregabalin 300 mg capsule 2022-0 6-06 00:00: 00 No 1mg &lt 2022-0 6-06 00:00: 00 No pregabalin 300 mg capsule 2-0 6-06 00:00: 00 No 1mg &lt 2022-0 6-06 00:00: 00 No pregabalin 300 mg capsule 2022-0 5-05 00:00: 00 No 1mg pregabalin 300 mg capsule 2022-0 5-05 00:00: 00 No 1mg pregabalin 300 mg capsule 2-0 5-05 00:00: 00 No 1mg Dose Unknown 2-0 4-07 00:00: 00 No Dose Unknown 2-0 4-07 00:00: 00 No Dose Unknown 2-0 4-07 00:00: 00 No amoxicillin 875 mg-potassiu m clavulanate 125 mg tablet 2-0 330 00:00: 00 No 1mg Bromfed DM 2 mg-30 mg-10 mg/5 mL oral syrup 2021-0 3 00:00: 00 No 10mg/5 mL Dose Unknown 2021-0 3 00:00: 00 No Dose Unknown 2021-0 3 00:00: 00 No Dose Unknown 2021-0 3 00:00: 00 No Dose Unknown 0 3 00:00: 00 No amoxicillin 875 mg-potassiu m clavulanate 125 mg tablet 2021-0 3 00:00: 00 No 1mg Bromfed DM 2 mg-30 mg-10 mg/5 mL oral syrup 2021-0 3 00:00: 00 No 10mg/5 mL Dose Unknown 2021-0 3 00:00: 00 No Dose Unknown 2021-0 3 00:00: 00 No Dose Unknown 2021-0 3 00:00: 00 No Dose Unknown 2021-0 3 00:00: 00 No amoxicillin 875 mg-potassiu m clavulanate 125 mg tablet 2021-0 3 00:00: 00 No 1mg Bromfed DM 2 mg-30 mg-10 mg/5 mL oral syrup 2021-0 3 00:00: 00 No 10mg/5 mL Dose Unknown 2021-0 3 00:00: 00 No Dose Unknown 2021-0 3 00:00: 00 No Dose Unknown 2021-0 3 00:00: 00 No Dose Unknown 2021-0 3 00:00: 00 No Dose Unknown 2021-0 3- 00:00: 00 No Dose Unknown 2021-0 3 00:00: 00 No Dose Unknown 2021-0 3 00:00: 00 No albuterol sulfate HFA 90 mcg/actuati on aerosol inhaler 2021-0 2-12 00:00: 00 No 12mcg/a ctuatio n albuterol sulfate HFA 90 mcg/actuati on aerosol inhaler 2021-0 2-12 00:00: 00 No 12mcg/a ctuatio n albuterol sulfate HFA 90 mcg/actuati on aerosol inhaler 0 2-12 00:00: 00 No 12mcg/a ctuatio n pregabalin 300 mg capsule 0 2-09 00:00: 00 No 1mg pregabalin 300 mg capsule 0 2-09 00:00: 00 No 1mg pregabalin 300 mg capsule 0 2-09 00:00: 00 No 1mg ProAir HFA 90 mcg/actuati on aerosol inhaler 1-12 00:00: 00 No 12mcg/a ctuatio n azithromyci n 250 mg tablet 1-12 00:00: 00 No mg prednisone 20 mg tablet 1-12 00:00: 00 No mg pregabalin 300 mg capsule 1-12 00:00: 00 No 1mg Bromfed DM 2 mg-30 mg-10 mg/5 mL oral syrup 1-12 00:00: 00 No 5mg/5 mL ipratropium 0.5 mg-albutero l 3 mg (2.5 mg base)/3 mL nebulizatio n soln 1-12 00:00: 00 No 3mg base)/3 mL ProAir HFA 90 mcg/actuati on aerosol inhaler 1-12 00:00: 00 No 12mcg/a ctuatio n azithromyci n 250 mg tablet 1-12 00:00: 00 No mg prednisone 20 mg tablet 1-12 00:00: 00 No mg pregabalin 300 mg capsule 1-12 00:00: 00 No 1mg Bromfed DM 2 mg-30 mg-10 mg/5 mL oral syrup 1-12 00:00: 00 No 5mg/5 mL ipratropium 0.5 mg-albutero l 3 mg (2.5 mg base)/3 mL nebulizatio n soln 1-12 00:00: 00 No 3mg base)/3 mL ProAir HFA 90 mcg/actuati on aerosol inhaler 1-12 00:00: 00 No 12mcg/a ctuatio n azithromyci n 250 mg tablet - 00:00: 00 No mg prednisone 20 mg tablet -12 00:00: 00 No mg pregabalin 300 mg capsule - 00:00: 00 No 1mg Bromfed DM 2 mg-30 mg-10 mg/5 mL oral syrup - 00:00: 00 No 5mg/5 mL ipratropium 0.5 [...] mg capsule 2020-05 00:00: 00 No 1mg gabapentin 600 mg [...] No 1mg prednisone 20 mg tablet 2020-05 0- 00:00: 00 No mg gabapentin 300 mg capsule 2020-05 0- 00:00: 00 No 1mg ProAir HFA 90 mcg/actuati on aerosol inhaler 8 00:00: 00 No 12mcg/a ctuatio n amoxicillin 875 mg-potassiu m clavulanate 125 mg tablet 8 00:00: 00 No 1mg gabapentin 600 mg tablet 8 00:00: 00 No 1mg prednisone 20 mg tablet 8 00:00: 00 No mg gabapentin 300 mg capsule 8 00:00: 00 No 1mg ProAir HFA 90 mcg/actuati on aerosol inhaler 12-22 00:00: 00 No 12mcg/a ctuatio n amoxicillin 875 mg-potassiu m clavulanate 125 mg tablet 8 00:00: 00 No 1mg [...] 00 No 1mg gabapentin 600 mg tablet 2021-0 5-20 00:00: 00 No 1mg gabapentin 300 mg capsule 20 00:00: 00 No 1mg gabapentin 600 mg [...] 875 mg-potassiu m clavulanate 125 mg tablet - 00:00: 00 No 1mg amoxicillin 875 mg-potassiu m clavulanate 125 mg tablet -14 00:00: 00 No 1mg amoxicillin 875 mg-potassiu m clavulanate 125 mg tablet -14 00:00: 00 No 1mg ProAir HFA 90 mcg/actuati on aerosol inhaler 1-04 00:00: 00 No 12mcg/a ctuatio n Combivent [...] activated 01-19 00:00: 00 No 1mcg/ac tuation ProAir RespiClick 90 mcg/actuati on breath activated [...] n 01-19 00:00: 00 No 3mg/3 mL gabapentin 600 mg tablet 12-30 00:00: 00 No 1mg gabapentin 600 mg tablet 12-30 00:00: 00 No 1mg gabapentin 600 mg tablet 12-30 00:00: 00 No 1mg gabapentin 300 mg capsule 12-19 00:00: 00 No 1mg gabapentin 300 mg capsule 12-19 00:00: 00 No 1mg gabapentin 300 mg capsule 12-19 00:00: 00 No 1mg gabapentin 600 mg tablet 11-30 00:00: 00 No 1mg gabapentin 600 mg tablet 11-30 00:00: 00 No 1mg gabapentin 600 mg tablet 11-30 00:00: 00 No 1mg amoxicillin 500 mg [...] Vital Name Observation Time Observation Value Comments S ource Systolic blood pressure 2022-10-07 20:05:00 133 mm[Hg] [facility] Diastolic blood pressure 2022-10-07 20:05:00 70 mm[Hg] [facility] Heart rate 2022-10-07 20:05:00 96 /min [facility] Body height 2022-10-07 20:05:00 152.4 cm [facility] Body weight 2022-10-07 20:05:00 69.854 kg [facility] BMI 2022-10-07 20:05:00 30.08 kg/m2 [facility] BP Systolic 2022-03-26 10:04:00 148 mm[Hg] BP [...] EXTERNAL PROVIDER RECORDS 2022-10-21 05:01:00 Doctor Unassigned, [place] [facility] RADIOLOGY DOCUMENTATION 2022-10-11 05:01:00 Doct or Unassigned, [place] [facility] MEDICAL RELEASE/CLEARANCE FORMS 2022-10-09 05:01:00 Doctor Unassigned, [place] [facility] Plan of Care Planned Activity Planned Date Details Comments Source Goal Plan of Care Note [code = 16759-8] Goal Plan of Care Note [code = 53395-4] Goal Plan of Care Note [code = 96317-5] Goal Plan of Care Note [code = 99091-2] Goal Plan of Care Note [code = 17225-4] Goal Plan of Care Note [code = 77959-0] Goal Plan of Care Note [code = 48298-8] Goal Plan of Care Note [code = 65158-5] Goal Plan of Care Note [code = 95297-3] Goal Plan of Care Note [code = 71941-1] Goal Plan of Care Note [code = 24237-6] Goal Plan of Care Note [code = 10770-4] Goal Plan of Care Note [code = 72216-8] Goal Plan of Care Note [code = 37398-8] Goal Plan of Care Note [code = 86683-2] Goal Plan of Care Note [code = 68215-4] Goal Plan of Care Note [code = 60155-9] Goal Plan of Care Note [code = 14730-2] Goal Plan of Care Note [code = 28878-0] Goal Plan of Care Note [code = 06479-4] Goal Plan of Care Note [code = 90494-1] Goal Plan of Care Note [code = 88027-1] Goal Plan of Care Note [code = 25880-3] Goal Plan of Care Note [code = 60564-1] Goal Plan of Care Note [code = 98993-7] Goal Plan of Care Note [code = 76170-7] Goal Plan of Care Note [code = 57887-3] Goal Plan of Care Note [code = 73916-9] Goal Plan of Care Note [code = 84765-8] Goal Plan of Care Note [code = 03776-5] Goal Plan of Care Note [code = 55128-1] Goal Plan of Care Note [code = 56083-8] Goal Plan of Care Note [code = 59324-8] Goal Plan of Care Note [code = 17047-4] Goal Plan of Care Note [code = 75936-5] Goal Plan of Care Note [code = 15739-0] Goal Plan of Care Note [code = 72915-6] Goal Plan of Care Note [code = 34366-0] Goal Plan of Care Note [code = 04688-8] Goal Plan of Care Note [code = 02283-1] Goal Plan of Care Note [code = 58913-7] Goal Plan of Care Note [code = 75635-1] Goal Plan of Care Note [code = 58622-6] Goal Plan of Care Note [code = 43958-5] Goal Plan of Care Note [code = 14405-2] Goal Plan of Care Note [code = 22955-2] Goal Plan of Care Note [code = 80775-9] Goal Plan of Care Note [code = 00231-5] Goal Plan of Care Note [code = 50466-0] Goal Plan of Care Note [code = 05123-3] Goal Plan of Care Note [code = 93839-0] Goal Plan of Care Note [code = 15590-0] Goal Plan of Care Note [code = 42405-1] Goal Plan of Care Note [code = 81601-0] Goal Plan of Care Note [code = 18460-6] Goal Plan of Care Note [code = 17062-2] Goal Plan of Care Note [code = 12422-4] Goal Plan of Care Note [code = 34701-8] Goal Plan of Care Note [code = 72882-2] Goal Plan of Care Note [code = 11859-8] Goal Plan of Care Note [code = 39010-4] Goal Plan of Care Note [code = 31455-1] Goal Plan of Care Note [code = 89398-8] Goal Plan of Care Note [code = 15663-3] Goal Plan of Care Note [code = 12953-2] Goal Plan of Care Note [code = 97624-8] Goal Plan of Care Note [code = 79999-1] Goal Plan of Care Note [code = 06679-2] Goal Plan of Care Note [code = 73366-2] Goal Plan of Care Note [code = 33109-3] Goal Plan of Care Note [code = 47030-4] Goal Plan of Care Note [code = 30869-8] Goal Plan of Care Note [code = 55347-6] Goal Plan of Care Note [code = 76603-1] Goal Plan of Care Note [code = 21350-3] Goal Plan of Care Note [code = 37018-1] Goal Plan of Care Note [code = 89554-5] Goal Plan of Care Note [code = 21133-0] Goal Plan of Care Note [code = 97561-9] Goal Plan of Care Note [code = 42256-6] Goal Plan of Care Note [code = 55926-5] Goal Plan of Care Note [code = 05162-3] Goal Plan of Care Note [code = 68575-1] Encounters Start Date/Time End Date/Time Encounter Type Admission Type Attending [facility] Care Department Encounter ID Source 2023-11-10 14:10:07 2023-11-10 14:10:07 Outpatient SFA SFA 06 Jaden Betancourt [place] 2023-10-14 15:51:09 2023-10-14 15:51:09 Outpatient SFA SFA 527 Jaden Betancourt [place] 2023-09-15 16:15:18 2023-09-15 16:15:18 Outpatient SFA SFA [id number] Jaden Betancourt [place] 2023-08-26 15:52:22 2023-08-26 15:52:22 Outpatient SFA SFA [id number] Jaden Betancourt [place] 2023-08-14 09:36:17 2023-08-14 09:36:17 Outpatient SFA SFA [id number] Jaden Betancourt [place] 2023-07-14 14:28:32 2023-07-14 14:28:32 Outpatient SFA SFA 6 Jaden Betancourt [place] 2023-06-18 10:02:18 2023-06-18 10:02:18 Outpatient SFA SFA 130 Jaden Betancourt [place] 2023-06-17 17:18:38 2023-06-17 17:18:38 Outpatient SFA SFA 013 Jaden Betancourt [place] 2023-06-12 15:47:52 2023-06-12 15:47:52 Outpatient SFA SFA [id number] Jaden Betancourt [place] 2023-04-28 14:22:48 2023-04-28 14:22:48 Outpatient SFA SFA [id number] Jaden Betancourt [place] 2023-03-19 16:04:2023-03-19 16:04:06 Outpatient SFA [facility] [id number] Jaden Betancourt [place] 2023-02-27 13:54:38 2023-02-27 13:54:38 Outpatient [facility] [id number] Jaden [place]once 2023-02-18 14:41:08 2023-02-18 14:41:08 Outpatient [facility] [id number] Jaden Betancourt [place] 2023-01-30 17:52:20 2023-01-30 17:52:20 Outpatient [facility] [id number] Jaden Betancourt [place] 2023-01-14 12:11:29 2023-01-14 12:11:29 Outpatient [facility] [id number] Jaden Betancourt [place] 2022-12-11 17:36:37 2022-12-11 17:36:37 Outpatient [facility] [id number] Jaden Betancourt [place] 2022-10-21 00:00:00 2022-10-21 00:00:00 Orders Only Doctor Unassigned, [place] [id number] 350.1.13.10 4.2.7.2.686 [id number] [facility] 2022-10-15 00:00:00 2022-10-15 00:00:00 Telephone [facility] [place] [id number] 350.1.13.10 4.2.7.2.686 [id number] [facility] 2022-10-11 00:00:00 2022-10-11 00:00:00 Orders Only Doctor Unassigned, [place] [id number] 350.1.13.10 4.2.7.2.686 [id number] [facility] 2022-10-11 00:00:00 2022-10-11 00:00:00 Telephone [facility] [place]?[facility] [place] [id number] 350.1.13.10 4.2.7.2.686 [id number] [facility] 2022-10-09 00:00:00 2022-10-09 00:00:00 Orders Only Doctor Unassigned, [place] [facility] [id number] 350.1.13.10 4.2.7.2.686 [id number] [facility] 2022-10-09 00:00:00 2022-10-09 00:00:00 [facility] 1.2840.114 350.1.13.10 4.2.7.2.686 [id number] [facility] 2022-10-07 14:30:00 2022-10-07 16:47:40 Outpatient R DENNYMAEGAN [facility] [id number] [facility] 2022-10-07 14:30:00 2022-10-07 16:47:40 Office Visit Maegan D[facility] 1.2840.114 350.1.13.10 4.2.7.2.686 [id number] [facility] 2022-10-07 00:00:00 2022-10-07 00:00:00 Telephone [facility] 1.2840.114 350.1.13.10 4.2.7.2.686 [id number] [facility] 2022-10-02 00:00:00 2022-10-02 00:00:00 Telephone [facility] D[facility] 1.2840.114 350.1.13.10 4.2.7.2.686 [id number] [facility] 2022-08-20 13:43:24 2022-08-20 13:43:24 Outpatient SFA SFA [id number] Jaden Ponce 2022-05-29 14:07:16 2022-05-29 14:07:16 Outpatient SFA SFA [id number] Jaden Ponce 2022-04-30 15:19:29 2022-04-30 15:19:29 Outpatient SFA SFA [id number] Jaden Ponce 2022-04-30 00:00:00 2022-04-30 00:00:00 Outpatient Visit [id number] 2022-03-27 00:00:00 2022-03-27 00:00:00 Outpatient DMG DMG [id number] [facility] 2022-03-26 09:54:48 2022-03-26 09:54:48 Outpatient SFA SFA 1108 Jaden Ponce 2022-03-26 00:00:00 2022-03-26 00:00:00 Outpatient Visit [id number] 2022-02-25 11:04:30 2022-02-25 11:04:30 Outpatient SFA SFA [id number] Jaden Ponce 2022-02-25 00:00:00 2022-02-25 00:00:00 Outpatient Visit [id number] 2021-11-30 00:00:00 2021-11-30 00:00:00 Outpatient Visit [id number] [id number] 2021-11-27 04:42:00 2021-11-27 04:42:00 Outpatient [facility] [id number] 0712 Qian arrington [facility] Program Results Test Description Test Time Test Comments Results Result Co mments Source TSH, THIRD [id number] 07:15:39* Test Item Value Reference Range Interpretation Comme nts TSH, THIRD GENERATION (test code = 2821) 0.265 UIU/ML 0.400-4.100 L C-REACTIVE [id number] 05:45:48* Test Item Value Reference Range Interpretation Comme nts C-REACTIVE PROTEIN (test cod e = 3513) <0.3 MG/DL <0.5 COMPREHENSIVE METABOLIC [id number] 05:45:07* Test Item Value Reference Range Interpretation Comme nts GLUCOSE (test code = 2217) 178 MG/DL 70-99 H BUN (test code = 2208) 15 MG/DL 8-23 CREATININE (test code = 2214) 0.47 MG/DL 0.60-1.30 L eGFR (2020 CKD-EPI) (test code = 56254) 104 ML/MIN/1.73 >60 CALC BUN/CREAT (test code = 2235) 32 RATIO 6-28 H SODIUM (test code = 2231) 138 MEQ/L 133-146 POTASSIUM (test code = 2228) 3.7 MEQ/L 3.5-5.4 CHLORIDE (test code = 2215) 100 MEQ/L 95-107 CARBON DIOXIDE (test code = 2206) 24 MEQ/L 19-31 CALCIUM (test code = 2209) 9.0 MG/DL 8.5-10.5 PROTEIN, TOTAL (test code = 2229) 6.4 G/DL 6.1-8.3 ALBUMIN (test code = 2201) 4.3 G/DL 3.5-5.2 CALC GLOBULIN (test code = 2240) 2.1 G/DL 1.9-3.7 CALC A/G RATIO (test code = 2234) 2.0 RATIO 1.0-2.6 BILIRUBIN, TOTAL (test code = 2207) 0.3 MG/DL <=1.2 ALKALINE PHOSPHATASE (test code = 2204) 118 U/L 40-142 AST (test code = 2218) 10 U/L 9-40 ALT (test code = 2219) 17 U/L 5-40 HEMOGLOBIN [id number] 04:57:52* Test Item Value Reference Range Interpretation Comme nts HEMOGLOBIN A1c (test code = 43764) 5.8 % 4.2-5.6 H [employer] GUIDELINES FOR HGB A1C: [...] ETC.). CONSIDER ALTERNATE TESTING OR LABORATORY CONSULTATION. SEDIMENTATION [id number] 04:22:25* Test Item Value Reference Range Interpretation Comme nts SEDIMENTATION RATE (test cod e = 1017) 2 MM/HOUR 0-20 CBC W/AUTO DIFF WITH [id number] 02:36:55* Test Item Value Reference Range Interpretation Comme nts WBC (test code = 1001) 9.6 K/UL 3.5-11.0 RBC (test code = 1002) 4.74 M/UL 3.80-5.40 HEMOGLOBIN (test code = 1003) 15.2 G/DL 11.5-15.5 HEMATOCRIT (test code = 1004) 44.9 % 34.0-45.0 MCV (test code = 1005) 94.7 fL 80.0-99.0 MCH (test code = 1006) 32.1 PG 25.0-33.0 MCHC (test code = 1007) 33.9 G/DL 31.0-36.0 RDW (test code = 1038) 13.5 % 11.5-15.0 NEUTROPHILS (test code = 1008) 82.9 % LYMPHOCYTES (test code = 1010) 11.5 % MONOCYTES (test code = 1011) 3.4 % EOSINOPHILS (test code = 1012) 0.1 % BASOPHILS (test code = 1013) 0.6 % IMMATURE GRANULOCYTES (test code = 1036) 1.5 % NUCLEATED RBCS (test code = 1065) 0.0 /100 WBC'S See_Comment [Automated messa ge] The system which generated this result transmitted reference range: 0.0. The reference range was not used to interpret this result as normal/abnormal. PLATELET COUNT (test code = 1015) 296 K/UL 130-400 ABSOLUTE NEUTROPHILS (test code = 1066) 7.98 K/UL 1.50-7.50 H ABSOLUTE LYMPHOCYTES (test code = 1067) 1.11 K/UL 1.00-4.00 ABSOLUTE MONOCYTES (test code = 1068) 0.33 K/UL 0.20-1.00 ABSOLUTE EOSINOPHILS (test code = 1040) 0.01 K/UL 0.00-0.50 ABSOLUTE BASOPHILS (test code = 1069) 0.06 K/UL 0.00-0.20 ABS IMMATURE GRANULOCYTES (test code = 1020) 0.14 K/UL 0.00-0.10 H ABS NUCLEATED RBCS (test code = 19890) 0.00 K/UL 0.00-0.11 LIPID [id number] 06:45:40* Test Item Value Reference Range Interpretation Comme nts CHOLESTEROL (test code = 2210) 219 MG/DL <200 H TRIGLYCERIDES (test code = 2232) 85 MG/DL <150 HDL CHOLESTEROL (test code = 2220) 78 MG/DL >39 CALC LDL CHOL (test code = 2237) 123 MG/DL <100 H NOTE: CALCULATED LDL IS BASED ON ADRIAN-JESUS METHOD WHICHINCLUDES ADJUSTABLE TRIGLYCERIDE:VLDL CHOLESTEROL RATIO.THIS FACTOR VARIES BY MEASURED TRIGLYCERIDE AND NON-HDLCHOLESTEROL CONCENTRATIONS WITH INCREASED CALCULATED LDL SEENIN HIGHER TRIGLYCERIDE OR LOWER NON-HDL SPECIMENS. FOR MOREINFORMATION, SEE CLIENT ANNOUNCEMENT AT [email or web address] RATIO LDL/HDL (test code = 2238) 1.58 RATIO <3.22 COMPREHENSIVE METABOLIC [id number] 06:45:40* Test Item Value Reference Range Interpretation Comme nts GLUCOSE (test code = 2217) 185 MG/DL 70-99 H BUN (test code = 2208) 10 MG/DL 8-23 CREATININE (test code = 2214) 0.55 MG/DL 0.60-1.30 L eGFR (2020 CKD-EPI) (test code = 12602) 101 ML/MIN/1.73 >60 CALC BUN/CREAT (test code = 2235) 18 RATIO 6-28 SODIUM (test code = 223) 134 MEQ/L 133-146 POTASSIUM (test code = 2228) 3.5 MEQ/L 3.5-5.4 CHLORIDE (test code = 2215) 94 MEQ/L 95-107 L CARBON DIOXIDE (test code = 2206) 23 MEQ/L 19-31 CALCIUM (test code = 2208) 10.0 MG/DL 8.5-10.5 PROTEIN, TOTAL (test code = 2228) 7.2 G/DL 6.1-8.3 ALBUMIN (test code = 2200) 4.8 G/DL 3.5-5.2 CALC GLOBULIN (test code = 2240) 2.4 G/DL 1.9-3.7 CALC A/G RATIO (test code = 2233) 2.0 RATIO 1.0-2.6 BILIRUBIN, TOTAL (test code = 2206) 0.2 MG/DL See_Comment [Automated me ssage] The system which generated this result transmitted reference range: <=1.2. The reference range was not used to interpret this result as normal/abnormal. ALKALINE PHOSPHATASE (test code = 2203) 101 U/L 40-142 AST (test code = 2218) 15 U/L 9-40 ALT (test code = 2219) 17 U/L 5-40 [facility] has impo rtant pathology staff changes effective 07/17/2022. New pathology staff will provide uninterrupted, excellent patient care and clinical consultation. See URL: [email or web address]. UNLESS OTHERWISE INDICATED, ALL TESTING PERFORMED AT [facility] [address] [place] [id number] COMPUTER TECHNOLOGY TEACHER: JOEY SILVA M.D. CLIA NUMBER [id number] [facility] [place]. [id number] HEMOGLOBIN [id number] 03:45:25* Test Item Value Reference Range Interpretation Comme nts HEMOGLOBIN A1c (test code = 42308) 6.1 % 4.2-5.6 H [employer] GUIDELINES FOR HGB A1C: [...] OR LABORATORY CONSULTATION. CBC W/AUTO DIFF WITH [id number] 02:39:50* Test Item Value Reference Range Interpretation [...] = 1065) 0.0 /100 WBC'S See_Comment [Automated WebXioma ge] The system which generated this result [...] H ABS NUCLEATED RBCS (test code = 09388) 0.00 K/UL 0.00-0.11 OCCULT BLD,FECAL,IMMUNOASSAY [id number] 15:52:05* Test Item Value Reference Range Interpretation Comme nts OCCULT BLD, FECAL (test code = 72448) NEGATIVE NEGATIVE [facility] has important pathology staff changes effective 07/17/2022. New pathology staff will provide uninterrupted, excellent patient care and clinical consultation. See URL: [email or web address]. UNLESS OTHERWISE INDICATED, ALL TESTING PERFORMED AT [facility] [address] [place] [address] CLIA: [id number], CAP: [id number] TSH, THIRD [id number] 06:49:25* Test Item Value Reference Range Interpretation Comme nts TSH, THIRD GENERATION (test code = 2821) 1.600 UIU/ML 0.400-4.100 [id number] 06:45:12* Test Item Value Reference Range Interpretation Comme nts NT-proBNP (test code = 61038) <50 PG/ML SEE BELOW If NT-ProBNP is less than 300 PG/ML, heart failure is unlikely for allages. Age.................Heart Failure Likely <50 Years...........>=450 PG/ML 50-75 Years.........>=900 PG/ML > 75 Years..........>=1800 PG/ML Methodology: Alyse Kimani Electrochemiluminescense Immunoassay UNLESS OTHERWISE INDICATED, ALL TESTING PERFORMED [facility] [address] [place] [id number] COMPUTER TECHNOLOGY TEACHER: ELIAS ESPANA M.D. CLIA NUMBER [id number] [place]. [id number] COMPREHENSIVE METABOLIC [id number] 04:56:47* Test Item Value Reference Range Interpretation Comme nts GLUCOSE (test code = 2217) 137 MG/DL 70-99 H BUN (test code = 2208) 12 MG/DL 8-23 CREATININE (test code = 2214) 0.60 MG/DL 0.60-1.30 eGFR (2020 CKD-EPI) (test code = ) 99 ML/MIN/1.73 >60 CALC BUN/CREAT (test code = 2234) 20 RATIO 6-28 SODIUM (test code = 2230) 143 MEQ/L 133-146 POTASSIUM (test code = 2227) 4.3 MEQ/L 3.5-5.4 CHLORIDE (test code = 2214) 105 MEQ/L 95-107 CARBON DIOXIDE (test code = 2205) 25 MEQ/L 19-31 CALCIUM (test code = 2208) 9.6 MG/DL 8.5-10.5 PROTEIN, TOTAL (test code = 2228) 6.8 G/DL 6.1-8.3 ALBUMIN (test code = 2200) 4.5 G/DL 3.5-5.2 CALC GLOBULIN (test code = 2239) 2.3 G/DL 1.9-3.7 CALC A/G RATIO (test [...] code = 2218) 11 U/L 5-40 LIPID [id number] 04:56:47* Test Item Value Reference Range Interpretation Comme nts CHOLESTEROL (test code = 2209) 236 MG/DL <200 H TRIGLYCERIDES (test code [...] SPECIMENS. FOR MOREINFORMATION, SEE CLIENT ANNOUNCEMENT AT [email or web address] RISK RATIO LDL/HDL (test code = 223) 2.59 RATIO <3.22 HEMOGLOBIN [id number] 04:00:46* Test Item Value Reference Range Interpretation Comme nts HEMOGLOBIN A1c (test code = 62979) 5.9 % 4.2-5.6 H CBC W/AUTO DIFF WITH [id number] 02:37:32* Test Item Value Reference Range Interpretation [...] = 1065) 0.0 /100 WBC'S See_Comment [Automated WebXioma ge] The system which generated this result [...] 0.00-0.10 ABS NUCLEATED RBCS (test code = 95849) 0.00 K/UL 0.00-0.11 HEMOGLOBIN [id number] 00:00:00* Test Item Value Reference Range Interpretation Comme nts HEMOGLOBIN A1c (test code = 65602) 5.9 % HEMOGLOBIN [id number] 00:00:00* Test Item Value Reference Range Interpretation Comme nts HEMOGLOBIN A1c (test code = 88034) 5.9 % HEMOGLOBIN [id number] 00:00:00* Test Item Value Reference Range Interpretation Comme nts HEMOGLOBIN A1c (test code = 62807) 5.9 % CBC W/AUTO [id number] 00:00:00* Test Item Value Reference Range Interpretation [...] ABS NUCLEATED RBCS (test cod e = 01169) 0.00 K/UL CBC W/AUTO [id number] 00:00:00* Test Item Value Reference Range Interpretation [...] ABS NUCLEATED RBCS (test cod e = 91134) 0.00 K/UL CBC W/AUTO [id number] 00:00:00* Test Item Value Reference Range Interpretation [...] ABS NUCLEATED RBCS (test cod e = 08784) 0.00 K/UL COMPREHENSIVE METABOLIC [id number] 00:00:00* Test Item Value Reference Range Interpretation Comme nts GLUCOSE (test code = 2217) 137 MG/DL BUN (test code = 2208) 12 MG/DL CREATININE (test code = 2214) 0.60 MG/DL eGFR (2020 CKD-EPI) (test co de = 38301) 99 ML/MIN/1.73 CALC BUN/CREAT (test code = [...] code = 2219) 11 U/L COMPREHENSIVE METABOLIC [id number] 00:00:00* Test Item Value Reference Range Interpretation Comme nts GLUCOSE (test code = 2217) 137 MG/DL BUN (test code = 2208) 12 MG/DL CREATININE (test code = 2214) 0.60 MG/DL eGFR (2020 CKD-EPI) (test co de = 96046) 99 ML/MIN/1.73 CALC BUN/CREAT (test code = [...] (test code = 2219) 11 U/L LIPID [id number] 00:00:00* Test Item Value Reference Range Interpretation Comme nts CHOLESTEROL (test code = 2210) 236 MG/DL TRIGLYCERIDES (test code = 2232) 274 MG/DL HDL CHOLESTEROL (test code = 2220) 54 MG/DL CALC LDL CHOL (test code = 2237) 140 MG/DL RISK RATIO LDL/HDL (test cod e = 2238) 2.59 RATIO LIPID [id number] 00:00:00* Test Item Value Reference Range Interpretation Comme nts CHOLESTEROL (test code = 2210) 236 MG/DL TRIGLYCERIDES (test code = 2232) 274 MG/DL HDL CHOLESTEROL (test code = 2220) 54 MG/DL CALC LDL CHOL (test code = 2237) 140 MG/DL RISK RATIO LDL/HDL (test cod e = 2238) 2.59 RATIO TSH, THIRD [id number] 00:00:00* Test Item Value Reference Range Interpretation Comme nts TSH, THIRD GENERATION (test code = 2821) 1.600 UIU/ML TSH, THIRD [id number] 00:00:00* Test Item Value Reference Range Interpretation Comme nts TSH, THIRD GENERATION (test code = 2821) 1.600 UIU/ML TSH, THIRD [id number] 00:00:00* Test Item Value Reference Range Interpretation Comme nts TSH, THIRD GENERATION (test code = 2821) 1.600 UIU/ML [id number] 00:00:00* Test Item Value Reference Range Interpretation Comme nts NT-proBNP (test code = 94463) <50 PG/ML [id number] 00:00:00* Test Item Value Reference Range Interpretation Comme nts NT-proBNP (test code = 78267) <50 PG/ML [id number] 00:00:00* Test Item Value Reference Range Interpretation Comme nts NT-proBNP (test code = 72589) <50 PG/ML HEMOGLOBIN [id number] 00:00:00* Test Item Value Reference Range Interpretation Comme nts HEMOGLOBIN A1c (test code = 25675) 5.9 % HEMOGLOBIN [id number] 00:00:00* Test Item Value Reference Range Interpretation Comme nts HEMOGLOBIN A1c (test code = 14223) 5.9 % HEMOGLOBIN [id number] 00:00:00* Test Item Value Reference Range Interpretation Comme nts HEMOGLOBIN A1c (test code = 68675) 5.9 % CBC W/AUTO [id number] 00:00:00* Test Item Value Reference Range Interpretation [...] ABS NUCLEATED RBCS (test cod e = 88268) 0.00 K/UL CBC W/AUTO [id number] 00:00:00* Test Item Value Reference Range Interpretation [...] ABS NUCLEATED RBCS (test cod e = 19646) 0.00 K/UL CBC W/AUTO [id number] 00:00:00* Test Item Value Reference Range Interpretation [...] ABS NUCLEATED RBCS (test cod e = 31962) 0.00 K/UL COMPREHENSIVE METABOLIC [id number] 00:00:00* Test Item Value Reference Range Interpretation Comme nts GLUCOSE (test code = 2217) 137 MG/DL BUN (test code = 2208) 12 MG/DL CREATININE (test code = 2214) 0.60 MG/DL eGFR (2020 CKD-EPI) (test co de = 30988) 99 ML/MIN/1.73 CALC BUN/CREAT (test code = [...] code = 2219) 11 U/L COMPREHENSIVE METABOLIC [id number] 00:00:00* Test Item Value Reference Range Interpretation Comme nts GLUCOSE (test code = 2217) 137 MG/DL BUN (test code = 2208) 12 MG/DL CREATININE (test code = 2214) 0.60 MG/DL eGFR (2020 CKD-EPI) (test co de = 06331) 99 ML/MIN/1.73 CALC BUN/CREAT (test code = [...] (test code = 2219) 11 U/L LIPID [id number] 00:00:00* Test Item Value Reference Range Interpretation Comme nts CHOLESTEROL (test code = 2210) 236 MG/DL TRIGLYCERIDES (test code = 2232) 274 MG/DL HDL CHOLESTEROL (test code = 2220) 54 MG/DL CALC LDL CHOL (test code = 2237) 140 MG/DL RISK RATIO LDL/HDL (test cod e = 2238) 2.59 RATIO LIPID [id number] 00:00:00* Test Item Value Reference Range Interpretation Comme nts CHOLESTEROL (test code = 2210) 236 MG/DL TRIGLYCERIDES (test code = 2232) 274 MG/DL HDL CHOLESTEROL (test code = 2220) 54 MG/DL CALC LDL CHOL (test code = 2237) 140 MG/DL RISK RATIO LDL/HDL (test cod e = 2238) 2.59 RATIO TSH, THIRD [id number] 00:00:00* Test Item Value Reference Range Interpretation Comme nts TSH, THIRD GENERATION (test code = 2821) 1.600 UIU/ML TSH, THIRD [id number] 00:00:00* Test Item Value Reference Range Interpretation Comme nts TSH, THIRD GENERATION (test code = 2821) 1.600 UIU/ML TSH, THIRD [id number] 00:00:00* Test Item Value Reference Range Interpretation Comme nts TSH, THIRD GENERATION (test code = 2821) 1.600 UIU/ML [id number] 00:00:00* Test Item Value Reference Range Interpretation Comme nts NT-proBNP (test code = 66220) <50 PG/ML [id number] 00:00:00* Test Item Value Reference Range Interpretation Comme nts NT-proBNP (test code = 41448) <50 PG/ML [id number] 00:00:00* Test Item Value Reference Range Interpretation Comme nts NT-proBNP (test code = 51106) <50 PG/ML HEMOGLOBIN [id number] 00:00:00* Test Item Value Reference Range Interpretation Comme nts HEMOGLOBIN A1c (test code = 87677) 5.9 % HEMOGLOBIN [id number] 00:00:00* Test Item Value Reference Range Interpretation Comme nts HEMOGLOBIN A1c (test code = 54092) 5.9 % HEMOGLOBIN [id number] 00:00:00* Test Item Value Reference Range Interpretation Comme nts HEMOGLOBIN A1c (test code = 37366) 5.9 % CBC W/AUTO [id number] 00:00:00* Test Item Value Reference Range Interpretation [...] ABS NUCLEATED RBCS (test cod e = 65251) 0.00 K/UL CBC W/AUTO [id number] 00:00:00* Test Item Value Reference Range Interpretation [...] ABS NUCLEATED RBCS (test cod e = 40502) 0.00 K/UL CBC W/AUTO [id number] 00:00:00* Test Item Value Reference Range Interpretation [...] ABS NUCLEATED RBCS (test cod e = 45742) 0.00 K/UL COMPREHENSIVE METABOLIC [id number] 00:00:00* Test Item Value Reference Range Interpretation Comme nts GLUCOSE (test code = 2217) 137 MG/DL BUN (test code = 2208) 12 MG/DL CREATININE (test code = 2214) 0.60 MG/DL eGFR (2020 CKD-EPI) (test co de = 30342) 99 ML/MIN/1.73 CALC BUN/CREAT (test code = [...] code = 2219) 11 U/L COMPREHENSIVE METABOLIC [id number] 00:00:00* Test Item Value Reference Range Interpretation Comme nts GLUCOSE (test code = 2217) 137 MG/DL BUN (test code = 2208) 12 MG/DL CREATININE (test code = 2214) 0.60 MG/DL eGFR (2020 CKD-EPI) (test co de = 06739) 99 ML/MIN/1.73 CALC BUN/CREAT (test code = [...] (test code = 2219) 11 U/L LIPID [id number] 00:00:00* Test Item Value Reference Range Interpretation Comme nts CHOLESTEROL (test code = 2210) 236 MG/DL TRIGLYCERIDES (test code = 2232) 274 MG/DL HDL CHOLESTEROL (test code = 2220) 54 MG/DL CALC LDL CHOL (test code = 2237) 140 MG/DL RISK RATIO LDL/HDL (test cod e = 2238) 2.59 RATIO LIPID [id number] 00:00:00* Test Item Value Reference Range Interpretation Comme nts CHOLESTEROL (test code = 2210) 236 MG/DL TRIGLYCERIDES (test code = 2232) 274 MG/DL HDL CHOLESTEROL (test code = 2220) 54 MG/DL CALC LDL CHOL (test code = 2237) 140 MG/DL RISK RATIO LDL/HDL (test cod e = 2238) 2.59 RATIO TSH, THIRD [id number] 00:00:00* Test Item Value Reference Range Interpretation Comme nts TSH, THIRD GENERATION (test code = 2821) 1.600 UIU/ML TSH, THIRD [id number] 00:00:00* Test Item Value Reference Range Interpretation Comme nts TSH, THIRD GENERATION (test code = 2821) 1.600 UIU/ML TSH, THIRD [id number] 00:00:00* Test Item Value Reference Range Interpretation Comme nts TSH, THIRD GENERATION (test code = 2821) 1.600 UIU/ML [id number] 00:00:00* Test Item Value Reference Range Interpretation Comme nts NT-proBNP (test code = 96444) <50 PG/ML [id number] 00:00:00* Test Item Value Reference Range Interpretation Comme nts NT-proBNP (test code = 52399) <50 PG/ML [id number] 00:00:00* Test Item Value Reference Range Interpretation Comme nts NT-proBNP (test code = 78888) <50 PG/ML HEMOGLOBIN [id number] 00:00:00* Test Item Value Reference Range Interpretation Comme nts HEMOGLOBIN A1c (test code = 88517) 5.9 % HEMOGLOBIN [id number] 00:00:00* Test Item Value Reference Range Interpretation Comme nts HEMOGLOBIN A1c (test code = 36389) 5.9 % HEMOGLOBIN [id number] 00:00:00* Test Item Value Reference Range Interpretation Comme nts HEMOGLOBIN A1c (test code = 88140) 5.9 % CBC W/AUTO [id number] 00:00:00* Test Item Value Reference Range Interpretation [...] ABS NUCLEATED RBCS (test cod e = 52723) 0.00 K/UL CBC W/AUTO [id number] 00:00:00* Test Item Value Reference Range Interpretation [...] ABS NUCLEATED RBCS (test cod e = 43663) 0.00 K/UL CBC W/AUTO [id number] 00:00:00* Test Item Value Reference Range Interpretation [...] ABS NUCLEATED RBCS (test cod e = 66870) 0.00 K/UL COMPREHENSIVE METABOLIC [id number] 00:00:00* Test Item Value Reference Range Interpretation Comme nts GLUCOSE (test code = 2217) 137 MG/DL BUN (test code = 2208) 12 MG/DL CREATININE (test code = 2214) 0.60 MG/DL eGFR (2020 CKD-EPI) (test co de = 36357) 99 ML/MIN/1.73 CALC BUN/CREAT (test code = [...] code = 2219) 11 U/L COMPREHENSIVE METABOLIC [id number] 00:00:00* Test Item Value Reference Range Interpretation Comme nts GLUCOSE (test code = 2217) 137 MG/DL BUN (test code = 2208) 12 MG/DL CREATININE (test code = 2214) 0.60 MG/DL eGFR (2020 CKD-EPI) (test co de = 20190) 99 ML/MIN/1.73 CALC BUN/CREAT (test code = [...] (test code = 2219) 11 U/L LIPID [id number] 00:00:00* Test Item Value Reference Range Interpretation Comme nts CHOLESTEROL (test code = 2210) 236 MG/DL TRIGLYCERIDES (test code = 2232) 274 MG/DL HDL CHOLESTEROL (test code = 2220) 54 MG/DL CALC LDL CHOL (test code = 2237) 140 MG/DL RISK RATIO LDL/HDL (test cod e = 2238) 2.59 RATIO LIPID [id number] 00:00:00* Test Item Value Reference Range Interpretation Comme nts CHOLESTEROL (test code = 2210) 236 MG/DL TRIGLYCERIDES (test code = 2232) 274 MG/DL HDL CHOLESTEROL (test code = 2220) 54 MG/DL CALC LDL CHOL (test code = 2237) 140 MG/DL RISK RATIO LDL/HDL (test cod e = 2238) 2.59 RATIO TSH, THIRD [id number] 00:00:00* Test Item Value Reference Range Interpretation Comme nts TSH, THIRD GENERATION (test code = 2821) 1.600 UIU/ML TSH, THIRD [id number] 00:00:00* Test Item Value Reference Range Interpretation Comme nts TSH, THIRD GENERATION (test code = 2821) 1.600 UIU/ML TSH, THIRD [id number] 00:00:00* Test Item Value Reference Range Interpretation Comme nts TSH, THIRD GENERATION (test code = 2821) 1.600 UIU/ML [id number] 00:00:00* Test Item Value Reference Range Interpretation Comme nts NT-proBNP (test code = 11382) <50 PG/ML [id number] 00:00:00* Test Item Value Reference Range Interpretation Comme nts NT-proBNP (test code = 24690) <50 PG/ML [id number] 00:00:00* Test Item Value Reference Range Interpretation Comme nts NT-proBNP (test code = 30710) <50 PG/ML LIPID [id number] 00:00:00* Test Item Value Reference Range Interpretation Comme nts CHOLESTEROL (test code = 2210) 252 MG/DL TRIGLYCERIDES (test code = 2232) 171 MG/DL HDL CHOLESTEROL (test code = 2220) 61 MG/DL CALC LDL CHOL (test code = 2237) 159 MG/DL RISK RATIO LDL/HDL (test cod e = 2238) 2.61 RATIO LIPID [id number] 00:00:00* Test Item Value Reference Range Interpretation Comme nts CHOLESTEROL (test code = 2210) 252 MG/DL TRIGLYCERIDES (test code = 2232) 171 MG/DL HDL CHOLESTEROL (test code = 2220) 61 MG/DL CALC LDL CHOL (test code = 2237) 159 MG/DL RISK RATIO LDL/HDL (test cod e = 2238) 2.61 RATIO CBC W/AUTO [id number] 00:00:00* Test Item Value Reference Range Interpretation [...] ABS NUCLEATED RBCS (test cod e = 93393) 0.00 K/UL CBC W/AUTO [id number] 00:00:00* Test Item Value Reference Range Interpretation [...] ABS NUCLEATED RBCS (test cod e = 85203) 0.00 K/UL CBC W/AUTO [id number] 00:00:00* Test Item Value Reference Range Interpretation [...] ABS NUCLEATED RBCS (test cod e = 20336) 0.00 K/UL COMPREHENSIVE METABOLIC [id number] 00:00:00* Test Item Value Reference Range Interpretation Comme nts GLUCOSE (test code = 2217) 106 MG/DL BUN (test code = 2208) 7 MG/DL CREATININE (test code = 2214) 0.57 MG/DL eGFR AMER. (test cod e = 15883) 113 ML/MIN/1.73 eGFR NON- AMER. (test code = 32188) 97 ML/MIN/1.73 CALC BUN/CREAT (test code = [...] code = 2219) 12 U/L COMPREHENSIVE METABOLIC [id number] 00:00:00* Test Item Value Reference Range Interpretation Comme nts GLUCOSE (test code = 2217) 106 MG/DL BUN (test code = 2208) 7 MG/DL CREATININE (test code = 2214) 0.57 MG/DL eGFR AMER. (test cod e = 10531) 113 ML/MIN/1.73 eGFR NON- AMER. (test code = 88231) 97 ML/MIN/1.73 CALC BUN/CREAT (test code = [...] ALT (test code = 2219) 12 U/L [id number] 00:00:00* Test Item Value Reference Range Interpretation Comme nts TSH, THIRD GENERATION (test code = 2821) 1.390 UIU/ML [id number] 00:00:00* Test Item Value Reference Range Interpretation Comme nts TSH, THIRD GENERATION (test code = 2821) 1.390 UIU/ML [id number] 00:00:00* Test Item Value Reference Range Interpretation Comme adrián TSH, THIRD GENERATION (test code = 2821) 1.390 UIU/ML HEMOGLOBIN A1c [ADDED]2021-04-05 00:00:00* Test Item Value Reference Range Interpretation Comme nts HEMOGLOBIN A1c (test code = 80621) 5.7 % HEMOGLOBIN A1c [ADDED]2021-04-05 00:00:00* Test Item Value Reference Range Interpretation Comme nts HEMOGLOBIN A1c (test code = 66926) 5.7 % HEMOGLOBIN A1c [ADDED]2021-04-05 00:00:00* Test Item Value Reference Range Interpretation Comme nts HEMOGLOBIN A1c (test code = 87121) 5.7 % LIPID [id number] 00:00:00* Test Item Value Reference Range Interpretation Comme nts CHOLESTEROL (test code = 2210) 252 MG/DL TRIGLYCERIDES (test code = 2232) 171 MG/DL HDL CHOLESTEROL (test code = 2220) 61 MG/DL CALC LDL CHOL (test code = 2237) 159 MG/DL RISK RATIO LDL/HDL (test cod e = 2238) 2.61 RATIO LIPID [id number] 00:00:00* Test Item Value Reference Range Interpretation Comme nts CHOLESTEROL (test code = 2210) 252 MG/DL TRIGLYCERIDES (test code = 2232) 171 MG/DL HDL CHOLESTEROL (test code = 2220) 61 MG/DL CALC LDL CHOL (test code = 2237) 159 MG/DL RISK RATIO LDL/HDL (test cod e = 2238) 2.61 RATIO CBC W/AUTO [id number] 00:00:00* Test Item Value Reference Range Interpretation [...] ABS NUCLEATED RBCS (test cod e = 54666) 0.00 K/UL CBC W/AUTO [id number] 00:00:00* Test Item Value Reference Range Interpretation [...] ABS NUCLEATED RBCS (test cod e = 57187) 0.00 K/UL CBC W/AUTO [id number] 00:00:00* Test Item Value Reference Range Interpretation [...] ABS NUCLEATED RBCS (test cod e = 16038) 0.00 K/UL COMPREHENSIVE METABOLIC [id number] 00:00:00* Test Item Value Reference Range Interpretation Comme nts GLUCOSE (test code = 2217) 106 MG/DL BUN (test code = 2208) 7 MG/DL CREATININE (test code = 2214) 0.57 MG/DL eGFR AMER. (test cod e = 55060) 113 ML/MIN/1.73 eGFR NON- AMER. (test code = 56054) 97 ML/MIN/1.73 CALC BUN/CREAT (test code = [...] code = 2219) 12 U/L COMPREHENSIVE METABOLIC [id number] 00:00:00* Test Item Value Reference Range Interpretation Comme nts GLUCOSE (test code = 2217) 106 MG/DL BUN (test code = 2208) 7 MG/DL CREATININE (test code = 2214) 0.57 MG/DL eGFR AMER. (test cod e = 85006) 113 ML/MIN/1.73 eGFR NON- AMER. (test code = 35524) 97 ML/MIN/1.73 CALC BUN/CREAT (test code = [...] ALT (test code = 2219) 12 U/L [id number] 00:00:00* Test Item Value Reference Range Interpretation Comme nts TSH, THIRD GENERATION (test code = 2821) 1.390 UIU/ML [id number] 00:00:00* Test Item Value Reference Range Interpretation Comme nts TSH, THIRD GENERATION (test code = 2821) 1.390 UIU/ML [id number] 00:00:00* Test Item Value Reference Range Interpretation Comme nts TSH, THIRD GENERATION (test code = 2821) 1.390 UIU/ML HEMOGLOBIN A1c [ADDED]2021-04-05 00:00:00* Test Item Value Reference Range Interpretation Comme nts HEMOGLOBIN A1c (test code = 84388) 5.7 % HEMOGLOBIN A1c [ADDED]2021-04-05 00:00:00* Test Item Value Reference Range Interpretation Comme nts HEMOGLOBIN A1c (test code = 68842) 5.7 % HEMOGLOBIN A1c [ADDED]2021-04-05 00:00:00* Test Item Value Reference Range Interpretation Comme nts HEMOGLOBIN A1c (test code = 93729) 5.7 % LIPID [id number] 00:00:00* Test Item Value Reference Range Interpretation Comme nts CHOLESTEROL (test code = 2210) 252 MG/DL TRIGLYCERIDES (test code = 2232) 171 MG/DL HDL CHOLESTEROL (test code = 2220) 61 MG/DL CALC LDL CHOL (test code = 2237) 159 MG/DL RISK RATIO LDL/HDL (test cod e = 2238) 2.61 RATIO LIPID [id number] 00:00:00* Test Item Value Reference Range Interpretation Comme nts CHOLESTEROL (test code = 2210) 252 MG/DL TRIGLYCERIDES (test code = 2232) 171 MG/DL HDL CHOLESTEROL (test code = 2220) 61 MG/DL CALC LDL CHOL (test code = 2237) 159 MG/DL RISK RATIO LDL/HDL (test cod e = 2238) 2.61 RATIO CBC W/AUTO [id number] 00:00:00* Test Item Value Reference Range Interpretation [...] ABS NUCLEATED RBCS (test cod e = 37096) 0.00 K/UL CBC W/AUTO [id number] 00:00:00* Test Item Value Reference Range Interpretation [...] ABS NUCLEATED RBCS (test cod e = 07403) 0.00 K/UL CBC W/AUTO [id number] 00:00:00* Test Item Value Reference Range Interpretation [...] ABS NUCLEATED RBCS (test cod e = 55904) 0.00 K/UL COMPREHENSIVE METABOLIC [id number] 00:00:00* Test Item Value Reference Range Interpretation Comme nts GLUCOSE (test code = 2217) 106 MG/DL BUN (test code = 2208) 7 MG/DL CREATININE (test code = 2214) 0.57 MG/DL eGFR AMER. (test cod e = 26329) 113 ML/MIN/1.73 eGFR NON- AMER. (test code = 22265) 97 ML/MIN/1.73 CALC BUN/CREAT (test code = [...] code = 2219) 12 U/L COMPREHENSIVE METABOLIC [id number] 00:00:00* Test Item Value Reference Range Interpretation Comme nts GLUCOSE (test code = 2217) 106 MG/DL BUN (test code = 2208) 7 MG/DL CREATININE (test code = 2214) 0.57 MG/DL eGFR AMER. (test cod e = 29245) 113 ML/MIN/1.73 eGFR NON- AMER. (test code = 30867) 97 ML/MIN/1.73 CALC BUN/CREAT (test code = [...] ALT (test code = 2219) 12 U/L [id number] 00:00:00* Test Item Value Reference Range Interpretation Comme nts TSH, THIRD GENERATION (test code = 2821) 1.390 UIU/ML [id number] 00:00:00* Test Item Value Reference Range Interpretation Comme nts TSH, THIRD GENERATION (test code = 2821) 1.390 UIU/ML [id number] 00:00:00* Test Item Value Reference Range Interpretation Comme nts TSH, THIRD GENERATION (test code = 2821) 1.390 UIU/ML HEMOGLOBIN A1c [ADDED]2021-04-05 00:00:00* Test Item Value Reference Range Interpretation Comme nts HEMOGLOBIN A1c (test code = 01756) 5.7 % HEMOGLOBIN A1c [ADDED]2021-04-05 00:00:00* Test Item Value Reference Range Interpretation Comme nts HEMOGLOBIN A1c (test code = 01157) 5.7 % HEMOGLOBIN A1c [ADDED]2021-04-05 00:00:00* Test Item Value Reference Range Interpretation Comme nts HEMOGLOBIN A1c (test code = 50116) 5.7 % LIPID [id number] 00:00:00* Test Item Value Reference Range Interpretation Comme nts CHOLESTEROL (test code = 2210) 252 MG/DL TRIGLYCERIDES (test code = 2232) 171 MG/DL HDL CHOLESTEROL (test code = 2220) 61 MG/DL CALC LDL CHOL (test code = 2237) 159 MG/DL RISK RATIO LDL/HDL (test cod e = 2238) 2.61 RATIO LIPID [id number] 00:00:00* Test Item Value Reference Range Interpretation Comme nts CHOLESTEROL (test code = 2210) 252 MG/DL TRIGLYCERIDES (test code = 2232) 171 MG/DL HDL CHOLESTEROL (test code = 2220) 61 MG/DL CALC LDL CHOL (test code = 2237) 159 MG/DL RISK RATIO LDL/HDL (test cod e = 2238) 2.61 RATIO CBC W/AUTO [id number] 00:00:00* Test Item Value Reference Range Interpretation [...] ABS NUCLEATED RBCS (test cod e = 84101) 0.00 K/UL CBC W/AUTO [id number] 00:00:00* Test Item Value Reference Range Interpretation [...] ABS NUCLEATED RBCS (test cod e = 74811) 0.00 K/UL CBC W/AUTO [id number] 00:00:00* Test Item Value Reference Range Interpretation [...] ABS NUCLEATED RBCS (test cod e = 93526) 0.00 K/UL COMPREHENSIVE METABOLIC [id number] 00:00:00* Test Item Value Reference Range Interpretation Comme nts GLUCOSE (test code = 2217) 106 MG/DL BUN (test code = 2208) 7 MG/DL CREATININE (test code = 2214) 0.57 MG/DL eGFR AMER. (test cod e = 68988) 113 ML/MIN/1.73 eGFR NON- AMER. (test code = 89278) 97 ML/MIN/1.73 CALC BUN/CREAT (test code = [...] code = 2219) 12 U/L COMPREHENSIVE METABOLIC [id number] 00:00:00* Test Item Value Reference Range Interpretation Comme nts GLUCOSE (test code = 2217) 106 MG/DL BUN (test code = 2208) 7 MG/DL CREATININE (test code = 2214) 0.57 MG/DL eGFR AMER. (test cod e = 34810) 113 ML/MIN/1.73 eGFR NON- AMER. (test code = 33490) 97 ML/MIN/1.73 CALC BUN/CREAT (test code = [...] ALT (test code = 2219) 12 U/L [id number] 00:00:00* Test Item Value Reference Range Interpretation Comme nts TSH, THIRD GENERATION (test code = 2821) 1.390 UIU/ML [id number] 00:00:00* Test Item Value Reference Range Interpretation Comme nts TSH, THIRD GENERATION (test code = 2821) 1.390 UIU/ML [id number] 00:00:00* Test Item Value Reference Range Interpretation Comme nts TSH, THIRD GENERATION (test code = 2821) 1.390 UIU/ML HEMOGLOBIN A1c [ADDED]2021-04-05 00:00:00* Test Item Value Reference Range Interpretation Comme nts HEMOGLOBIN A1c (test code = 38690) 5.7 % HEMOGLOBIN A1c [ADDED]2021-04-05 00:00:00* Test Item Value Reference Range Interpretation Comme nts HEMOGLOBIN A1c (test code = 37301) 5.7 % HEMOGLOBIN A1c [ADDED]2021-04-05 00:00:00* Test Item Value Reference Range Interpretation Comme nts HEMOGLOBIN A1c (test code = 37851) 5.7 % CBC W/AUTO [id number] 00:00:00* Test Item Value Reference Range Interpretation [...] code = 1015) 249 K/UL CBC W/AUTO [id number] 00:00:00* Test Item Value Reference Range Interpretation [...] code = 1015) 249 K/UL CBC W/AUTO [id number] 00:00:00* Test Item Value Reference Range Interpretation [...] (test code = 1015) 249 K/UL HEMOGLOBIN [id number] 00:00:00* Test Item Value Reference Range Interpretation Comme nts HEMOGLOBIN A1c (test code = 77333) 5.7 % HEMOGLOBIN [id number] 00:00:00* Test Item Value Reference Range Interpretation Comme nts HEMOGLOBIN A1c (test code = 48249) 5.7 % HEMOGLOBIN [id number] 00:00:00* Test Item Value Reference Range Interpretation Comme nts HEMOGLOBIN A1c (test code = 99614) 5.7 % LIPID [id number] 00:00:00* Test Item Value Reference Range Interpretation Comme nts CHOLESTEROL (test code = 2210) 166 MG/DL TRIGLYCERIDES (test code = 2232) 209 MG/DL HDL CHOLESTEROL (test code = 2220) 47 MG/DL CALC LDL CHOL (test code = 2237) 89 MG/DL RISK RATIO LDL/HDL (test cod e = 2238) 1.89 RATIO LIPID [id number] 00:00:00* Test Item Value Reference Range Interpretation Comme nts CHOLESTEROL (test code = 2210) 166 MG/DL TRIGLYCERIDES (test code = 2232) 209 MG/DL HDL CHOLESTEROL (test code = 2220) 47 MG/DL CALC LDL CHOL (test code = 2237) 89 MG/DL RISK RATIO LDL/HDL (test cod e = 2238) 1.89 RATIO COMPREHENSIVE METABOLIC [id number] 00:00:00* Test Item Value Reference Range Interpretation Comme nts GLUCOSE (test code = 2217) 106 MG/DL BUN (test code = 2208) 10 MG/DL CREATININE (test code = 2214) 0.64 MG/DL eGFR AMER. (test cod e = 42279) 110 ML/MIN/1.73 eGFR NON- AMER. (test code = 97876) 95 ML/MIN/1.73 CALC BUN/CREAT (test code = [...] code = 2219) 19 U/L COMPREHENSIVE METABOLIC [id number] 00:00:00* Test Item Value Reference Range Interpretation Comme nts GLUCOSE (test code = 2217) 106 MG/DL BUN (test code = 2208) 10 MG/DL CREATININE (test code = 2214) 0.64 MG/DL eGFR AMER. (test cod e = 70691) 110 ML/MIN/1.73 eGFR NON- AMER. (test code = 98089) 95 ML/MIN/1.73 CALC BUN/CREAT (test code = [...] ALT (test code = 2219) 19 U/L [id number] 00:00:00* Test Item Value Reference Range Interpretation Comme nts TSH, THIRD GENERATION (test code = 2821) 1.690 UIU/ML [id number] 00:00:00* Test Item Value Reference Range Interpretation Comme nts TSH, THIRD GENERATION (test code = 2821) 1.690 UIU/ML [id number] 00:00:00* Test Item Value Reference Range Interpretation Comme nts TSH, THIRD GENERATION (test code = 2821) 1.690 UIU/ML CBC W/AUTO [id number] 00:00:00* Test Item Value Reference Range Interpretation [...] code = 1015) 249 K/UL CBC W/AUTO [id number] 00:00:00* Test Item Value Reference Range Interpretation [...] code = 1015) 249 K/UL CBC W/AUTO [id number] 00:00:00* Test Item Value Reference Range Interpretation [...] (test code = 1015) 249 K/UL HEMOGLOBIN [id number] 00:00:00* Test Item Value Reference Range Interpretation Comme nts HEMOGLOBIN A1c (test code = 54358) 5.7 % HEMOGLOBIN [id number] 00:00:00* Test Item Value Reference Range Interpretation Comme nts HEMOGLOBIN A1c (test code = 23065) 5.7 % HEMOGLOBIN [id number] 00:00:00* Test Item Value Reference Range Interpretation Comme nts HEMOGLOBIN A1c (test code = 29263) 5.7 % LIPID [id number] 00:00:00* Test Item Value Reference Range Interpretation Comme nts CHOLESTEROL (test code = 2210) 166 MG/DL TRIGLYCERIDES (test code = 2232) 209 MG/DL HDL CHOLESTEROL (test code = 2220) 47 MG/DL CALC LDL CHOL (test code = 2237) 89 MG/DL RISK RATIO LDL/HDL (test cod e = 2238) 1.89 RATIO LIPID [id number] 00:00:00* Test Item Value Reference Range Interpretation Comme nts CHOLESTEROL (test code = 2210) 166 MG/DL TRIGLYCERIDES (test code = 2232) 209 MG/DL HDL CHOLESTEROL (test code = 2220) 47 MG/DL CALC LDL CHOL (test code = 2237) 89 MG/DL RISK RATIO LDL/HDL (test cod e = 2238) 1.89 RATIO COMPREHENSIVE METABOLIC [id number] 00:00:00* Test Item Value Reference Range Interpretation Comme nts GLUCOSE (test code = 2217) 106 MG/DL BUN (test code = 2208) 10 MG/DL CREATININE (test code = 2214) 0.64 MG/DL eGFR AMER. (test cod e = 11235) 110 ML/MIN/1.73 eGFR NON- AMER. (test code = 93047) 95 ML/MIN/1.73 CALC BUN/CREAT (test code = [...] code = 2219) 19 U/L COMPREHENSIVE METABOLIC [id number] 00:00:00* Test Item Value Reference Range Interpretation Comme nts GLUCOSE (test code = 2217) 106 MG/DL BUN (test code = 2208) 10 MG/DL CREATININE (test code = 2214) 0.64 MG/DL eGFR AMER. (test cod e = 26939) 110 ML/MIN/1.73 eGFR NON- AMER. (test code = 08449) 95 ML/MIN/1.73 CALC BUN/CREAT (test code = [...] ALT (test code = 2219) 19 U/L [id number] 00:00:00* Test Item Value Reference Range Interpretation Comme nts TSH, THIRD GENERATION (test code = 2821) 1.690 UIU/ML [id number] 00:00:00* Test Item Value Reference Range Interpretation Comme nts TSH, THIRD GENERATION (test code = 2821) 1.690 UIU/ML [id number] 00:00:00* Test Item Value Reference Range Interpretation Comme nts TSH, THIRD GENERATION (test code = 2821) 1.690 UIU/ML CBC W/AUTO [id number] 00:00:00* Test Item Value Reference Range Interpretation [...] code = 1015) 249 K/UL CBC W/AUTO [id number] 00:00:00* Test Item Value Reference Range Interpretation [...] code = 1015) 249 K/UL CBC W/AUTO [id number] 00:00:00* Test Item Value Reference Range Interpretation [...] (test code = 1015) 249 K/UL HEMOGLOBIN [id number] 00:00:00* Test Item Value Reference Range Interpretation Comme nts HEMOGLOBIN A1c (test code = 92214) 5.7 % HEMOGLOBIN [id number] 00:00:00* Test Item Value Reference Range Interpretation Comme nts HEMOGLOBIN A1c (test code = 18226) 5.7 % HEMOGLOBIN [id number] 00:00:00* Test Item Value Reference Range Interpretation Comme nts HEMOGLOBIN A1c (test code = 64887) 5.7 % LIPID [id number] 00:00:00* Test Item Value Reference Range Interpretation Comme nts CHOLESTEROL (test code = 2210) 166 MG/DL TRIGLYCERIDES (test code = 2232) 209 MG/DL HDL CHOLESTEROL (test code = 2220) 47 MG/DL CALC LDL CHOL (test code = 2237) 89 MG/DL RISK RATIO LDL/HDL (test cod e = 2238) 1.89 RATIO LIPID [id number] 00:00:00* Test Item Value Reference Range Interpretation Comme nts CHOLESTEROL (test code = 2210) 166 MG/DL TRIGLYCERIDES (test code = 2232) 209 MG/DL HDL CHOLESTEROL (test code = 2220) 47 MG/DL CALC LDL CHOL (test code = 2237) 89 MG/DL RISK RATIO LDL/HDL (test cod e = 2238) 1.89 RATIO COMPREHENSIVE METABOLIC [id number] 00:00:00* Test Item Value Reference Range Interpretation Comme nts GLUCOSE (test code = 2217) 106 MG/DL BUN (test code = 2208) 10 MG/DL CREATININE (test code = 2214) 0.64 MG/DL eGFR AMER. (test cod e = 00008) 110 ML/MIN/1.73 eGFR NON- AMER. (test code = 19090) 95 ML/MIN/1.73 CALC BUN/CREAT (test code = [...] code = 2219) 19 U/L COMPREHENSIVE METABOLIC [id number] 00:00:00* Test Item Value Reference Range Interpretation Comme nts GLUCOSE (test code = 2217) 106 MG/DL BUN (test code = 2208) 10 MG/DL CREATININE (test code = 2214) 0.64 MG/DL eGFR AMER. (test cod e = 95900) 110 ML/MIN/1.73 eGFR NON- AMER. (test code = 86360) 95 ML/MIN/1.73 CALC BUN/CREAT (test code = [...] ALT (test code = 2219) 19 U/L [id number] 00:00:00* Test Item Value Reference Range Interpretation Comme nts TSH, THIRD GENERATION (test code = 2821) 1.690 UIU/ML [id number] 00:00:00* Test Item Value Reference Range Interpretation Comme nts TSH, THIRD GENERATION (test code = 2821) 1.690 UIU/ML [id number] 00:00:00* Test Item Value Reference Range Interpretation Comme nts TSH, THIRD GENERATION (test code = 2821) 1.690 UIU/ML CBC W/AUTO [id number] 00:00:00* Test Item Value Reference Range Interpretation [...] code = 1015) 249 K/UL CBC W/AUTO [id number] 00:00:00* Test Item Value Reference Range Interpretation [...] code = 1015) 249 K/UL CBC W/AUTO [id number] 00:00:00* Test Item Value Reference Range Interpretation [...] (test code = 1015) 249 K/UL HEMOGLOBIN [id number] 00:00:00* Test Item Value Reference Range Interpretation Comme nts HEMOGLOBIN A1c (test code = 27228) 5.7 % HEMOGLOBIN [id number] 00:00:00* Test Item Value Reference Range Interpretation Comme nts HEMOGLOBIN A1c (test code = 55530) 5.7 % HEMOGLOBIN [id number] 00:00:00* Test Item Value Reference Range Interpretation Comme nts HEMOGLOBIN A1c (test code = 87791) 5.7 % LIPID [id number] 00:00:00* Test Item Value Reference Range Interpretation Comme nts CHOLESTEROL (test code = 2210) 166 MG/DL TRIGLYCERIDES (test code = 2232) 209 MG/DL HDL CHOLESTEROL (test code = 2220) 47 MG/DL CALC LDL CHOL (test code = 2237) 89 MG/DL RISK RATIO LDL/HDL (test cod e = 2238) 1.89 RATIO LIPID [id number] 00:00:00* Test Item Value Reference Range Interpretation Comme nts CHOLESTEROL (test code = 2210) 166 MG/DL TRIGLYCERIDES (test code = 2232) 209 MG/DL HDL CHOLESTEROL (test code = 2220) 47 MG/DL CALC LDL CHOL (test code = 2237) 89 MG/DL RISK RATIO LDL/HDL (test cod e = 2238) 1.89 RATIO COMPREHENSIVE METABOLIC [id number] 00:00:00* Test Item Value Reference Range Interpretation Comme nts GLUCOSE (test code = 2217) 106 MG/DL BUN (test code = 2208) 10 MG/DL CREATININE (test code = 2214) 0.64 MG/DL eGFR AMER. (test cod e = 56453) 110 ML/MIN/1.73 eGFR NON- AMER. (test code = 92885) 95 ML/MIN/1.73 CALC BUN/CREAT (test code = [...] code = 2219) 19 U/L COMPREHENSIVE METABOLIC [id number] 00:00:00* Test Item Value Reference Range Interpretation Comme nts GLUCOSE (test code = 2217) 106 MG/DL BUN (test code = 2208) 10 MG/DL CREATININE (test code = 2214) 0.64 MG/DL eGFR AMER. (test cod e = 85551) 110 ML/MIN/1.73 eGFR NON- AMER. (test code = 02885) 95 ML/MIN/1.73 CALC BUN/CREAT (test code = 2235) 16 RATIO SODIUM (test code = 223) 141 MEQ/L POTASSIUM (test code = 2228) 3.9 MEQ/L CHLORIDE (test code = 2215) 98 MEQ/L CARBON DIOXIDE (test code = 2206) 30 MEQ/L CALCIUM (test code = 2209) 10.1 MG/DL PROTEIN, TOTAL (test code = 222) 7.7 G/DL ALBUMIN (test code = 220) 5.2 G/DL CALC GLOBULIN (test code = 2240) 2.5 G/DL CALC A/G RATIO (test code = 2234) 2.1 RATIO BILIRUBIN, TOTAL (test code = 2207) 0.3 MG/DL ALKALINE PHOSPHATASE (test code = 2203) 111 U/L AST (test code = 2218) 16 U/L ALT (test code = 2219) 19 U/L [id number] 00:00:00* Test Item Value Reference Range Interpretation Comme nts TSH, THIRD GENERATION (test code = 2821) 1.690 UIU/ML [id number] 00:00:00* Test Item Value Reference Range Interpretation Comme nts TSH, THIRD GENERATION (test code = 2821) 1.690 UIU/ML [id number] 00:00:00* Test Item Value Reference Range Interpretation Comme nts TSH, THIRD GENERATION (test code = 2821) 1.690 UIU/ML
[2023-11-16] MEDS ORDERED: ONDANSETRON 4 MG/2 ML VIAL ONE (21:04)
[2023-11-16] MEDS ORDERED: MORPHINE 4 MG/ML SYR ONE (21:05)
[2023-11-16] MEDS ORDERED: METOCLOPRAMIDE 10 MG/2mL INJ ONE (21:05)
[2023-11-16] MEDS ORDERED: DICYCLOMINE HCL 20 MG/2 ML AMP IM ONE (21:05)
[2023-11-16] MEDS ORDERED: FAMOTIDINE 20 MG/2 ML VIAL IV ONE (21:06)
[2023-11-16] MEDS ORDERED: DIPHENOX/ATROP SULF 1 TAB PO ONE (21:06)
[2023-11-16] MEDS ORDERED: NA CHLORIDE 0.9% 500 ML ONE (21:06)
[2023-11-16] MEDS ORDERED: NA CHLORIDE 0.9% 1,000 ML ONE (21:06)
[2023-11-16 21:07] LABS: Absolute Lymphocytes (CBC) 0.8 K/uL (0.7-4.9); Absolute Monocytes 0.5 K/uL (0.1-1.3); Absolute Neutrophil 8.3 K/uL (1.8-8.0); Basophils % 0.2 % (0-1.3); Hematocrit 46.6 % (36.0-45.0); Hemoglobin 15.8 g/dL (12.0-15.0); Lymphocytes % 8.2 % (15.3-44.8); MCH 32.4 pg (27.0-35.0); MCHC 33.9 g/dL (32.0-36.0); MCV 95.6 fL (80-100); MPV 7.3 fL (7.6-11.3); Monocytes % 5.6 % (3.3-12.3); Nucleated Red Blood Cells % 0.1 % (0-0); Platelets 234 thou/uL (152-406); RBC Red Blood Cell Count 4.88 M/uL (3.86-4.86); Red Cell Distribution Width 13.7 % (12.1-15.2)
[2023-11-16 21:24] LABS: ALT/SGPT 23 U/L (13-56); Albumin 3.9 g/dL (3.4-5.0); Albumin/Globulin Ratio 1.2 (1.1-1.8); Alkaline Phosphatase 91 U/L (45-117); Anion Gap 11.2 mEq/L (5.0-15.0); BUN Blood Urea Nitrogen 6 mg/dL (7-18); Bicarbonate 26 mEq/L (21-32); Bilirubin Total 0.5 mg/dL (0.2-1.0); Globulin 3.3 g/dL (2.3-3.5); Glomerular Filtration Rate 102 ml/min (=/>90); Glucose Level 164 mg/dL (74-106); Lipase 14 U/L (13-75); Potassium 3.2 mEq/L (3.5-5.1); Protein, Total 7.2 g/dL (6.4-8.2); Sodium Level 134 mEq/L (136-145)
[2023-11-16 21:31] LABS: AST/SGOT < 10 U/L (15-37)
[2023-11-16 21:33] LABS: Blood Morphology Comment NOT SEEN (NOT SEEN); Platelet Estimate ADEQ; White Blood Cell Scan OK (OK)
--- NOTE | 2023-11-16 21:59 | RAD REPORT ---
EXAM DESCRIPTION: CT - Abdomen Pelvis Wo Contrast - 11/16/2023 9:52 pm CLINICAL HISTORY: Abdominal pain. ABD PAIN COMPARISON: Abdomen Pelvis W Contrast dated 06/09/2023; Abdomen Pelvis Wo Contrast dated 3; Abdomen Pelvis W Contrast dated 09/27/2022 TECHNIQUE: CT imaging of the abdomen and pelvis was performed without contrast. Solid organ, bowel a nd vascular assessment is limited due to lack of IV and oral contrast. All CT scans are performed using dose optimization technique as appropriate and may include automated exposure control or mA/KV adjustment according to patient size. FINDINGS: The lower lung bay are clear.Cholecystectomy clips. The liver, spleen, pancreas, adrenal glands and kidneys are within normal limits for a limited non-co ntrast examination. No bowel obstruction, free air, free fluid or abscess. Postsurgical changes about the small intestine . Aortoiliac atherosclerosis. The appendix is normal. The osseous structures are within normal limits. IMPRESSION: No acute intra-abdominal or pelvic findings. A limited non-contrast examination was performed as detailed.
[2023-11-16] MEDS ORDERED: HYDROCODONE/APAP 5/325 MG TAB ONE (23:52)
--- NOTE | 2023-11-17 00:54 | EDPHYS ---
Physician Documentation [facility] Name: Delmi Pool Age: 68 yrs Sex: Female : 1955 Arrival Date: 11/16/2023 Time: 20:49 Bed 15 Private MD: ED Physician Zheng Khan HPI: 11/15 20:50 This 68 yrs old Female presents to ER via Unassigned with complaints of Hip sp4 Pain, Fall Injury, Syncope, Nausea/Vomiting. 23:56 Patient with past medical history of diabetes, hypercholesterolemia, hypertension and sp4 neuropathy presents with acute fall at home associated with nausea vomiting and diarrhea for the past few days. Patient complains of lower back pain, right hip pain, with associated nausea vomiting and diarrhea. Diarrhea is nonbloody.. Historical: - Allergies: 21:28 Toradol; ha1 21:28 tramadol; ha1 - PMHx: 21:28 diabetes mellitus; Hypercholesterolemia; Hypertensive disorder; neuropathy; ha1 - PSHx: 21:28 Appendectomy; Bowel Retracement; section; Cholecystectomy; ha1 - Immunization history:: Adult Immunizations. - Infectious Disease History:: Denies. - Family history:: not pertinent. - Social history:: Smoking status: Patient reports the use of cigarette tobacco products, smokes one pack cigarettes per day. ROS: 23:56 Constitutional: Negative for fever, chills, and weight loss, positive nausea vomiting sp4 and diarrhea, positive fall at home, positive lower back pain and hip pain. 23:56 All other systems are negative, Exam: 23:56 Constitutional: This is a well developed, well nourished patient who is awake, alert, sp4 positive for frail elderly female, no significant distress Head/Face: Normocephalic, atraumatic. Eyes: Pupils equal round and reactive to light, extra-ocular motions intact. Lids and lashes normal. Conjunctiva and sclera are not injected. Cornea within normal limits. Periorbital areas with no swelling, redness, or edema. ENT: Nares patent. No nasal discharge, no septal abnormalities noted. Tympanic membranes are normal and external auditory canals are clear. Oropharynx with no redness, swelling, or masses, exudates, or evidence of obstruction, uvula midline. Mucous membranes moist. Neck: Trachea midline, no thyromegaly or masses palpated, and no cervical lymphadenopathy. Supple, full range of motion without nuchal rigidity, or vertebral point tenderness. Chest/axilla: Normal chest wall appearance and motion. Nontender with no deformity. No lesions are appreciated. Cardiovascular: Regular rate and rhythm with a normal S1 and S2. No gallops, murmurs, or rubs. Normal PMI, no JVD. No pulse deficits. Respiratory: Lungs have equal breath sounds bilaterally, clear to auscultation and percussion. No rales, rhonchi or wheezes noted. No increased work of breathing, no retractions or nasal flaring. Abdomen/GI: Soft, with normal bowel sounds. No distension or tympany. No guarding or rebound. No evidence of tenderness throughout. Back: No spinal tenderness. No costovertebral tenderness. Skin: Warm, dry with normal turgor. Normal color with no rashes, no lesions, and no evidence of cellulitis. MS/ Extremity: Pulses equal, no cyanosis. Neurovascular intact. Full, normal range of motion. Neuro: Awake and alert, GCS 15, oriented to person, place, time, and situation. Cranial nerves II-XII grossly intact. Motor strength 5/5 in all extremities. Sensory grossly intact. Psych: Awake, alert, with orientation to person, place and time. Behavior, mood, and affect are within normal limits Vital Signs: 20:50 BP 157 / 92; Pulse 97; Resp 18; Temp 97.3(TE); Pulse Ox 97% on R/A; Weight 63.5 kg; ss Height 5 ft. 0 in. ; Pain 9/10; 21:00 BP 168 / 82; Pulse 90; Resp 17; Pulse Ox 97% on R/A; ha1 22:00 BP 121 / 62; Pulse 78; Resp 17 S; Pulse Ox 95% on R/A; ha1 23:06 BP 105 / 57; Pulse 77; Resp 17 S; Pulse Ox 94% on R/A; ha1 0701 00:00 BP 123 / 63; Pulse 77; Resp 17 S; Pulse Ox 94% on R/A; ha1 00:25 BP 109 / 65; Pulse 78; Resp 17 S; Pulse Ox 94% on R/A; ha1 01:15 BP 126 / 52; Pulse 87; Resp 17 S; Pulse Ox 95% on R/A; ha1 11/15 20:50 Body Mass Index 27.34 (63.50 kg, 152.4 cm) ss 11/15 20:50 Pain Scale: Adult ss [place] Coma Score: 11/15 23:56 Eye Response: spontaneous(4). Motor Response: obeys commands(6). Verbal Response: sp4 oriented(5). Total: 15. MDM: 20:55 Patient medically screened. sp4 23:58 ED course: EXAM DESCRIPTION: CT - Abdomen Pelvis Wo Contrast - 11/16/2023 9:52 pm sp4 CLINICAL HISTORY: Abdominal pain. ABD PAIN COMPARISON: Abdomen Pelvis W Contrast dated 06/09/2023; Abdomen Pelvis Wo Contrast dated 03/24/2023; Abdomen Pelvis W Contrast dated 09/27/2022 TECHNIQUE: CT imaging of the abdomen and pelvis was performed without contrast. Solid organ, bowel and vascular assessment is limited due to lack of IV and oral contrast. All CT scans are performed using dose optimization technique as appropriate and may include automated exposure control or mA/KV adjustment according to patient size. FINDINGS: The lower lung bay are clear. Cholecystectomy clips. The liver, spleen, pancreas, adrenal glands and kidneys are within normal limits for a limited noncontrast examination. No bowel obstruction, free air, free fluid or abscess. Postsurgical changes about the small intestine. Aortoiliac atherosclerosis. The appendix is normal. The osseous structures are within normal limits. IMPRESSION: No acute intra-abdominal or pelvic findings. A limited non-contrast examination was performed as detailed.. 11/16 00:52 Differential diagnosis: hip fracture, intertrochanteric fracture, femoral neck sp4 fracture, femoral shaft fracture, bursitis, arthritis, strain. Data reviewed: vital signs, nurses notes, EMS record, lab test result(s), radiologic studies, CT scan. Consideration of Admission/Observation Escalation of care including admission/observation considered. ED course: Stable for discharge home .. 11/15 20:55 Order name: CBC with Diff; Complete Time: 23:21 sp4 11/15 20:55 Order name: CMP; Complete Time: 23:21 sp4 11/15 20:55 Order name: Lipase; Complete Time: 23:21 sp4 11/15 20:55 Order name: Urinalysis w/ reflexes; Complete Time: 02:35 sp4 11/15 21:12 Order name: CBC Smear Scan; Complete Time: 23:21 EDMS 11/16 02:32 Order name: Urine Culture EDMS 11/15 20:55 Order name: CT Abd/Pelvis - Without Contrast; Complete Time: 23:21 sp4 11/15 20:55 Order name: IV Saline Lock; Complete Time: 20:59 sp4 11/15 20:55 Order name: Labs collected and sent; Complete Time: 20:59 sp4 Administered Medications: 11/15 21:21 Drug: Famotidine IVP 20 mg IVP once; dilute with 10 mL 0.9% NaCl; give over 2 minutes ha1 Route: IVP; Site: right antecubital; 21:31 Follow up: Response: No adverse reaction 1 21:21 Drug: NS 0.9% IV 1000 ml IV at 125 ml/hr continuous Route: IV; Rate: 125 ml/hr; Site: ha right antecubital; 11/16 01:49 Follow up: Response: No adverse reaction; IV Status: Completed infusion; IV Intake: ha1 800ml 11/15 21:21 Drug: NS 0.9% IV 500 ml IV at bolus once Route: IV; Rate: bolus; Site: left antecubital;[facility] 11/16 01:00 Follow up: Response: No adverse reaction; IV Status: Completed infusion; IV Intake: ha1 1000ml 11/15 21:21 Drug: metoCLOPramide IVP 10 mg IVP once; over 1 to 2 minutes Route: IVP; Site: right ha1 antecubital; 21:30 Follow up: Response: No adverse reaction 1 21:21 Drug: Dicyclomine IM 20 mg IM once Route: IM; Site: right deltoid; ha1 21:30 Follow up: Response: No adverse reaction 1 21:22 Drug: Ondansetron IVP 4 mg IVP once; over 2 minutes Route: IVP; Site: right antecubital;ha1 21:31 Follow up: Response: No adverse reaction; Nausea is decreased 1 21:22 Drug: morphine IVP or IV 4 mg IVP once over 4 mins Route: IVP; Infused Over: 4 mins; 1 Site: right antecubital; 21:31 Follow up: Response: No adverse reaction; Pain is decreased 1 21:46 Drug: Diphenoxylate-Atropine PO 2 tabs PO once Route: PO; ha1 22:00 Follow up: Response: No adverse reaction; Marked relief of symptoms ha1 23:56 Drug: HYDROcodone-acetaminophen PO 5 mg-325 mg 1 tabs PO once Route: PO; ha1 11/16 00:20 Follow up: Response: No adverse reaction; Marked relief of symptoms; Pain is decreased; ha1 RASS: Alert and Calm (0) Disposition Summary: 11/17/23 00:53 Discharge Ordered Notes: Location: Home sp4 Problem: new sp4 Symptoms: have improved sp4 Condition: Stable sp4 Diagnosis - Nausea with vomiting, unspecified sp4 - Acute fall at home, nausea vomiting, acute gastroenteritis, diarrheal illness, sp4 right hip and thigh contusion Followup: sp4 - With: Private Physician - When: 7 - 10 days - Reason: Recheck today's complaints Discharge Instructions: - Discharge Summary Sheet sp4 - Clear Liquid Diet, Adult, [id number] sp4 Forms: - Patient Portal Instructions sp4 Prescriptions: - acetaminophen-codeine 300-60 mg Oral tablet - take 1 tablet ORAL route every 8 hours as needed for pain; 20 tablet; Refills: sp4 0, Product Selection Permitted - Lomotil 2.5-0.025 mg Oral Tablet - take 1 tablet ORAL route every 6 hours As needed; 20 tablet; Refills: 0, sp4 Product Selection Permitted - ondansetron 8 mg Oral Tablet,disintegrating - take 1 tablet ORAL route every 8 hours PRN nausea; 30 tablet; Refills: 0, sp4 Product Selection Permitted Signatures: Dispatcher [employer] Lucinda Martinez RN RN 1 Zheng Khan MD MD sp4
--- NOTE | 2023-11-17 00:54 | ER ---
Nurse's Notes [facility] Name: Delmi Pool Age: 68 yrs Sex: Female : 1955 Arrival Date: 11/16/2023 Time: 20:49 Bed 15 Private MD: Diagnosis: Nausea with vomiting, unspecified;Acute fall at home, nausea vomiting, acute gastroenteritis, diarrheal illness, right hip and thigh contusion Presentation: 11/15 20:50 Chief complaint: Patient states: Pt reports she has not feeling well lately. Recently ss prescribed antibiotics for chest congestion, but also c/o nausea/ vomiting. Pt reportedly became dizzy and fell from a standing position and now c/o R hip and back pain. EMS reports that upon arrival, patient sat up on couch and had a syncopal episode. Pt is A\T\O x3 upon arrival to ED. Coronavirus screen: Client denies travel out of the [place] in the last 14 days. Ebola Screen: Patient denies exposure to infectious person. Patient denies travel to an Ebola-affected area in the 21 days before illness onset. Initial Sepsis Screen: Does the patient meet any 2 criteria? No. Patient's initial sepsis screen is negative. Does the patient have a suspected source of infection? No. Patient's initial sepsis screen is negative. Risk Assessment: Do you want to hurt yourself or someone else? Patient reports no desire to harm self or others. Onset of symptoms is unknown. 20:50 Method Of Arrival: EMS: [facility] 20:50 Acuity: GILBERTO 3 ss Historical: - Allergies: 21:28 Toradol; ha1 21:28 tramadol; ha1 - PMHx: 21:28 diabetes mellitus; Hypercholesterolemia; Hypertensive disorder; neuropathy; ha1 - PSHx: 21:28 Appendectomy; Bowel Retracement; section; Cholecystectomy; ha1 - Immunization history:: Adult Immunizations. - Infectious Disease History:: Denies. - Family history:: not pertinent. - Social history:: Smoking status: Patient reports the use of cigarette tobacco products, smokes one pack cigarettes per day. Screenin:28 [facility] ED Fall Risk Assessment (Adult) History of falling in the last 3 months, ha1 including since admission Yes- single mechanical fall (1 pt) Confusion or Disorientation No (0 pts) Intoxicated or Sedated No (0 pts) Impaired Gait Yes (1 pt) Mobility Assist Device Used Yes (1 pt) Altered Elimination No (0 pt) Score/Fall Risk Level 0 - 2 = Low Risk Maintained a safe environment, Provided non-skid footwear, Hourly rounding (assess needs \T\ fall precautionary measures) done. Abuse screen: Denies threats or abuse. Nutritional screening: No deficits noted. Tuberculosis screening: No symptoms or risk factors identified. Assessment: 21:23 General: Appears uncomfortable, ill, well developed, well nourished, Behavior is ha1 cooperative, appropriate for age, flat, quiet, Reports Pt reports she has not feeling well lately. Recently prescribed antibiotics for chest congestion, but also c/o nausea/ vomiting. Pt reportedly became dizzy and fell from a standing position and now c/o R hip and back pain. EMS reports that upon arrival, patient sat up on couch and had a syncopal episode. Pt is A\T\O x3 upon arrival to ED. Pain: Complains of pain in right hip Pain does not radiate. Pain currently is 10 out of 10 on a pain scale. Quality of pain is described as sharp, Pain began suddenly, Is continuous. Neuro: Level of Consciousness is awake, alert, obeys commands, Oriented to person, place, time, situation, Appropriate for age. Neuro: Reports dizziness, a syncopal episode. Cardiovascular: Patient's skin is warm and dry. Cardiovascular:. Respiratory: Reports on abx for recent congestion Airway is patent Respiratory effort is even, unlabored, Respiratory pattern is regular, symmetrical. GI: Reports nausea, vomiting. : No signs and/or symptoms were reported regarding the genitourinary system. EENT: No signs and/or symptoms were reported regarding the EENT system. Derm: Skin is intact, is healthy with good turgor, Skin is pale. Musculoskeletal: Reports pain in right hip. Injury Description: fall due to syncopal episode. 21:44 Reassessment: going to CT. ha1 22:05 Reassessment: Patient and/or family updated on plan of care and expected duration. Pain ha1 level reassessed. Patient is alert, oriented x 3, equal unlabored respirations, skin warm/dry/pink. back from CT. 23:08 Reassessment: eyes closed. Respiratory: Reports Airway is patent Trachea midline ha1 Respiratory effort is even, unlabored, Respiratory pattern is regular, symmetrical. 11/16 00:00 Reassessment: Patient and/or family updated on plan of care and expected duration. Pain ha1 level reassessed. Patient is alert, oriented x 3, equal unlabored respirations, skin warm/dry/pink. 01:10 Reassessment: DISCHARGE PENDING ON TRANSPORTATION. PT. AWAITING ON FAMILY MEMBERS TO [facility] PICK HER UP. Vital Signs: 11/15 20:50 BP 157 / 92; Pulse 97; Resp 18; Temp 97.3(TE); Pulse Ox 97% on R/A; Weight 63.5 kg; ss Height 5 ft. 0 in. ; Pain 9/10; 21:00 BP 168 / 82; Pulse 90; Resp 17; Pulse Ox 97% on R/A; ha1 22:00 BP 121 / 62; Pulse 78; Resp 17 S; Pulse Ox 95% on R/A; ha1 23:06 BP 105 / 57; Pulse 77; Resp 17 S; Pulse Ox 94% on R/A; ha1 07 00:00 BP 123 / 63; Pulse 77; Resp 17 S; Pulse Ox 94% on R/A; ha1 00:25 BP 109 / 65; Pulse 78; Resp 17 S; Pulse Ox 94% on R/A; ha1 01:15 BP 126 / 52; Pulse 87; Resp 17 S; Pulse Ox 95% on R/A; ha1 11/15 20:50 Body Mass Index 27.34 (63.50 kg, 152.4 cm) 11/15 20:50 Pain Scale: Adult ss [place] Coma Score: 11/15 23:56 Eye Response: spontaneous(4). Motor Response: obeys commands(6). Verbal Response: sp4 oriented(5). Total: 15. ED Course: 20:50 Patient arrived in ED. ss 20:50 Zheng Khan MD is Attending Physician. sp4 20:59 Triage completed. ss 21:19 Lucinda Mccauley RN is Primary Nurse. ha1 21:28 Patient has correct armband on for positive identification. Bed in low position. Call ha1 light in reach. Side rails up X2. Provided Education on: POC. Verbalized understanding. . Client placed on continuous cardiac and pulse oximetry monitoring. NIBP monitoring applied. electronic device monitor on. Pulse ox on. NIBP on. 21:28 No provider procedures requiring assistance completed. Initial lab(s) drawn, by me, kory sent to lab. Inserted saline lock: 22 gauge in left antecubital area, using aseptic technique. Blood collected. Maintain EMS IV. Dressing intact. Good blood return noted. Site clean \T\ dry. Gauge \T\ site: 18g RAC. 21:31 Arm band placed on Patient placed in an exam room. ha1 21:53 CT Abd/Pelvis - Without Contrast In Process Unspecified. EDMS 11/16 02:37 IV discontinued, intact, bleeding controlled, No redness/swelling at site. Pressure ha1 dressing applied. Administered Medications: 11/15 21:21 Drug: Famotidine IVP 20 mg IVP once; dilute with 10 mL 0.9% NaCl; give over 2 minutes ha1 Route: IVP; Site: right antecubital; 21:31 Follow up: Response: No adverse reaction 1 21:21 Drug: NS 0.9% IV 1000 ml IV at 125 ml/hr continuous Route: IV; Rate: 125 ml/hr; Site: ha right antecubital; 11/16 01:49 Follow up: Response: No adverse reaction; IV Status: Completed infusion; IV Intake: ha1 800ml 11/15 21:21 Drug: NS 0.9% IV 500 ml IV at bolus once Route: IV; Rate: bolus; Site: left antecubital;ha1 11/16 01:00 Follow up: Response: No adverse reaction; IV Status: Completed infusion; IV Intake: ha1 1000ml 11/15 21:21 Drug: metoCLOPramide IVP 10 mg IVP once; over 1 to 2 minutes Route: IVP; Site: right ha1 antecubital; 21:30 Follow up: Response: No adverse reaction ha1 21:21 Drug: Dicyclomine IM 20 mg IM once Route: IM; Site: right deltoid; ha1 21:30 Follow up: Response: No adverse reaction 1 21:22 Drug: Ondansetron IVP 4 mg IVP once; over 2 minutes Route: IVP; Site: right antecubital;1 21:31 Follow up: Response: No adverse reaction; Nausea is decreased ha1 21:22 Drug: morphine IVP or IV 4 mg IVP once over 4 mins Route: IVP; Infused Over: 4 mins; ha1 Site: right antecubital; 21:31 Follow up: Response: No adverse reaction; Pain is decreased ha1 21:46 Drug: Diphenoxylate-Atropine PO 2 tabs PO once Route: PO; ha1 22:00 Follow up: Response: No adverse reaction; Marked relief of symptoms ha1 23:56 Drug: HYDROcodone-acetaminophen PO 5 mg-325 mg 1 tabs PO once Route: PO; ha1 11/16 00:20 Follow up: Response: No adverse reaction; Marked relief of symptoms; Pain is decreased; ha1 RASS: Alert and Calm (0) Medication: 11/15 21:28 VIS not applicable for this client. ha1 Intake: 11/16 01:00 IV: 1000ml; Total: 1000ml. ha1 01:49 IV: 800ml; Total: 1800ml. ha1 Outcome: 00:53 Discharge ordered by . sp4 02:36 Discharged to home via wheelchair, with family, ha1 02:36 Condition: stable 02:36 Discharge instructions given to patient, Instructed on discharge instructions, follow up and referral plans. medication usage, Demonstrated understanding of instructions, follow-up care, medications, Prescriptions given X 3, 02:37 Patient left the ED. [facility] Signatures: Dispatcher [employer] EDMS Patti Marie RN RN ss Ayala, Heidy, RN RN [facility] Zheng Khan MD MD sp4 Corrections: (The following items were deleted from the chart) 11/15 21:23 20:50 Chief complaint: Patient states: Pt reports she has not feeling well lately. ha1 Recently prescribed antibiotics for chest congestion, but also c/o nausea/ vomiting. Pt reportedly became dizzy and fell from a standing position and now c/o R hip and back pain. EMS reports that upon arrival, patient sat up on couch and had a syncopal episode. Pt is A\T\O x3 upon arrival to ED ss
[2023-11-17 02:15] LABS: Specific Gravity 1.019 (1.005-1.030); Sqamous Epithelial <5 /HPF (None Seen); Urine Bacteria None Seen /HPF (<20); Urine Bilirubin NEGATIVE (Negative); Urine Blood Trace (Negative); Urine Clarity Turbid (Clear); Urine Color Yellow (Yellow); Urine Culture Reflex Order REFLEXED; Urine Glucose TRACE (Negative); Urine Ketones 1+ (Negative); Urine Microscopic Reflex YN ORDER UMIC; Urine Mucus 1+ /HPF (None Seen); Urine Nitrite NEGATIVE (Negative); Urine Protein 3+ (Negative); Urine RBC <5 /HPF (None Seen); Urine Urobilinogen Normal (Normal); Urine pH 6.5 (5.0-7.0)
[2023-11-17 03:14] VITALS: BP 126/52; TEMP 97.3; O2SAT 95
== END 2023-11-17 02:37 | disposition home or self-care (01) ==
LOC: ER 20:49
DX: K52.9 Noninfective gastroenteritis and colitis, unspecified (principal); S70.01XA Contusion of right hip, initial encounter; S70.11XA Contusion of right thigh, initial encounter; W18.30XA Fall on same level, unspecified, initial encounter; Y92.009 Unspecified place in unspecified non-institutional (private) residence as the place of occurrence of the external cause; F17.210 Nicotine dependence, cigarettes, uncomplicated; Z88.5 Allergy status to narcotic agent
CPT/HCPCS: 96361; 87088; 85025; 81001; 87086; 36415; 83690; 80053; 74176; 96375; 96372; 96374; 99285; J2765; J0500; J2405; J7040; J7030; 87077; 87186

== ENCOUNTER 2024-03-22 14:04 | Observation (INO) | payer OTHER ==
--- OUTSIDE RECORDS SUMMARY | 2024-03-22 14:11 | XMS REPORT | Continuity of Care Document ---
Author Name Unknown Address [address] [facility] [address] [place] [address] [facility] thconnect Address [address] [facility] [address] [place] [address] Care Team Providers Care [employer] Name Role Phone Pcp, Patient Does Not Have A Primary Care Physic juan Doctor Unassigned, [place] Attending Clinician U Maegan Valdez MD Attending Clinician MAEGAN HEAD Attending Clinician Unavailabl e AMBREEN_FARHANA Attending Clinician Unavailable AMBREEN_SUYAPA Admitting Clinician Unavailable Payers Payer Name Policy Type Policy Number Effective Date Expirati on Date Source FORMERLY [facility] (MEDICARE REPLACEMENT HMO) [id number] 2022 00:00:00 Allergies, Adverse Reactions, Alerts Allergy Name Allergy Type Status Severity Reaction(s) Onset Date Inactive Date Treating Clinician Comments Source Sulfa (Sulfona mide Antibiot ics) Propensi ty to adverse reaction to drug Inactiv e 07-21 00:00: 00 Jaden Ponce NO KNOWN ALLERGIE S Drug Class Active [facility] Social History Social Habit Start Date Stop Date Quantity Comments Source Exposure to SARS-CoV-2 (event) 2022-09-27 00:00:00 2022-10-07 14:36:00 Not sure [facility] Sex Assigned At 1955 00:00:00 1955 00:00:00 [facility] Smoking Status Start Date Stop Date Source Tobacco smoking consumption unknown [facility] Medications Ordered Medication Name Filled Medication Name Start Date Stop Date Current Medication? Ordering Clinician Indication Dosage Frequency Signature (SIG) Comments Components Source olopatadine 0.2 % eye drops 2023-05- 00:00: 00 Yes 1% Jaden Ponce promethazin e 25 mg tablet 2023-05 00:00: 00 Yes mg Jaden Ponce albuterol sulfate HFA 90 mcg/actuati on aerosol inhaler 2023-05 00:00: 00 Yes mcg/act uation Jaden Ponce prednisone 50 mg tablet 2023-05 00:00: 00 Yes 1mg Jaden Ponce montelukast 10 mg tablet 2023-05 00:00: 00 Yes 1mg Jaden Ponce gabapentin 800 mg tablet 2023-05 00:00: 00 Yes 1mg Jaden Ponce promethazin e-DM 6.25 mg-15 mg/5 mL oral syrup 2023-05 00:00: 00 Yes 5mg/5 mL Jaden Ponce prednisone 20 mg tablet 02-05 00:00: 00 Yes 1mg Jaden Ponce azithromyci n 250 mg tablet 02-05 00:00: 00 Yes 1mg Jaden Ponce ondansetron 4 mg disintegrat ing tablet 02-05 00:00: 00 Yes 1mg Jaden Ponce Bromfed DM 2 mg-30 mg-10 mg/5 mL oral syrup 02-05 00:00: 00 Yes 10mg/5 mL Jaden Ponce albuterol sulfate HFA 90 mcg/actuati on aerosol inhaler 12-23 00:00: 00 Yes 12mcg/a ctuatio n Jaden Ponce prednisone 10 mg tablet 11-13 00:00: 00 Yes 1mg Jaden Ponce losartan 50 mg tablet 11-13 00:00: 00 Yes 1mg Jaden Ponce gabapentin 800 mg tablet 11-13 00:00: 00 Yes 1mg Jaden Ponce promethazin e-DM 6.25 mg-15 mg/5 mL oral syrup 11-13 00:00: 00 Yes 5mg/5 mL Jaden Ponce azelastine 137 mcg-flutica sone 50 mcg/spray nasal spray 11-12 00:00: 00 Yes mcg/spr ay Jaden Ponce losartan 50 mg tablet 11-12 00:00: 00 Yes 1mg Jaden Ponce amoxicillin 875 mg-potassiu jono clavulanate 125 mg tablet 11-12 00:00: 00 Yes 1mg Jaden Ponce gabapentin 800 mg tablet 11-12 00:00: 00 Yes 1mg Jaden Ponce promethazin e-DM 6.25 mg-15 mg/5 mL oral syrup 11-12 00:00: 00 Yes 5mg/5 mL Jaden Ponce losartan 50 mg tablet 11-09 00:00: 00 Yes 1mg Jaden Ponce gabapentin 800 mg tablet 09-21 00:00: 00 Yes 1mg Jaden Ponce TRELEGY ELLIPTA 200-62.5-25 MCG/ACT AEPB 09-05 00:00: 00 Yes Jaden Ponce gabapentin 800 mg tablet - 00:00: 00 Yes 1mg Jaden Ponce promethazin e 25 mg tablet - 00:00: 00 Yes 1mg Jaden Ponce gabapentin 800 mg tablet - 00:00: 00 Yes 1mg Jaden Ponce promethazin e-DM 6.25 mg-15 mg/5 mL oral syrup - 00:00: 00 Yes 5mg/5 mL Jaden Ponce albuterol sulfate HFA 90 mcg/actuati on aerosol inhaler - 00:00: 00 Yes 12mcg/a ctuatio n Jaden Ponce losartan 50 mg tablet - 00:00: 00 Yes 1mg Jaden Ponce montelukast 10 mg tablet - 00:00: 00 Yes 1mg Jaden Ponce promethazin e-DM 6.25 mg-15 mg/5 mL oral syrup - 00:00: 00 Yes 5mg/5 mL Jaden Ponce promethazin e 25 mg tablet - 00:00: 00 Yes mg Jaden Ponce losartan 50 mg tablet 08-06 00:00: 00 Yes 1mg Jaden Ponce montelukast 10 mg tablet 08-03 00:00: 00 Yes mg Jaden Ponce fenofibrate 160 mg tablet 08-03 00:00: 00 Yes mg Jaden Ponce dexamethaso ne 4 mg tablet 08-03 00:00: 00 Yes mg Jaden Ponce azelastine 137 mcg-flutica sone 50 mcg/spray nasal spray 08-03 00:00: 00 Yes mcg/spr ay Jaden Ponce USE 1 SPRAY IN EACH NOSTRIL TWICE DAILY. 08-03 00:00: 00 Yes [id number] Jaden Ponce INHALE 1 PUFF TWICE DAILY. 08-03 00:00: 00 Yes [id number] 5 Jaden Ponce TAKE 1 TABLET BY MOUTH DAILY 08-03 00:00: 00 Yes 10 Jaden Ponce TAKE 1 TABLET BY MOUTH 4 TIMES DAILY. 08-03 00:00: 00 Yes 800 Jaden Ponce TAKE 1 TABLET BY MOUTH DAILY 08-03 00:00: 00 Yes 50 Jaden Ponce INHALE 2 PUFFS BY MOUTH EVERY 4 TO 6 HOURS NEEDED. 08-03 00:00: 00 Yes [id number] Jaden Ponce 1 CAP EVERY 8 HOURS NEEDED FOR COUGH 08-03 00:00: 00 09-30 00:00 :00 No 200 Jaden Ponce TAKE 2 TABLETS ON DAY 1 THEN TAKE 1 TABLET A DAY FOR 4 DAYS. 08-03 00:00: 00 09-30 00:00 :00 No 250 Jaden Ponce TAKE 5 ML EVERY 6 HOURS NEEDED FOR COUGH 08-03 00:00: 00 09-30 00:00 :00 No [id number] Jaden Ponce TAKE 1 TAB 3 TIMES A DAY NEEDED FOR NAUSEA 08-03 00:00: 00 09-30 00:00 :00 No 25 Jaden Ponce albuterol sulfate HFA 90 mcg/actuati on aerosol inhaler 08-01 00:00: 00 Yes mcg/act uation Jaden Ponce TAKE 1 TABLET BY MOUTH DAILY 07-20 00:00: 00 09-30 00:00 :00 No 50 Jaden Ponce oxycodone-a cetaminophe n 10 mg-325 mg tablet 3- 00:00: 00 Yes mg Jaden Ponce gabapentin 800 mg tablet 2 00:00: 00 Yes mg Jaden Ponce INHALE 2 PUFFS BY MOUTH EVERY 4 TO 6 HOURS NEEDED. 06-19 00:00: 00 09-30 00:00 :00 No [id number] Jaden Ponce losartan 50 mg tablet 06-18 00:00: 00 Yes mg Jaden Ponce amitriptyli ne 50 mg tablet 06-18 00:00: 00 Yes mg Jaden Ponce ciprofloxac in 500 mg tablet 06-18 00:00: 00 Yes mg Jaden Ponce TAKE 1 TABLET BY MOUTH 4 TIMES DAILY. 06-18 00:00: 00 Yes 800 Jaden Ponce 1 TABLET BY MOUTH FOUR TIMES A DAY NEEDED FOR SEVERE PAIN IN THE LEFT SHOULDER 06-18 00:00: 00 Yes Jaden Ponce TAKE 1 TAB 3 TIMES A DAY NEEDED FOR NAUSEA 06-18 00:00: 00 09-30 00:00 :00 No 25 Jaden Ponce TAKE 5 ML EVERY 6 HOURS NEEDED FOR COUGH 06-18 00:00: 00 09-30 00:00 :00 No [id number] Jaden Ponce AMITRIPTYLI NE HYDROCHLORI DE 50 MG TABS 06-17 00:00: 00 Yes Jaden Ponce CIPROFLOXAC IN HYDROCHLORI DE 500 MG TABS 06-17 00:00: 00 Yes Jaden Ponce PROMETHAZIN E HYDROCHLORI DE 25 MG TABS 06-17 00:00: 00 Yes Jaden Ponce GABAPENTIN 800 MG TABS 06-17 00:00: 00 Yes Jaden Ponce METOCLOPRAM JAVIER HCL 5 MG TABS - 00:00: 00 Yes Jaden Ponce PREDNISONE 20 MG TABS 06-10 00:00: 00 Yes Jaden Ponce ALBUTEROL HFA 90 MCG INHALER 2022-05 00:00: 00 Yes 90 Jaden Ponce TAKE 1 TABLET BY MOUTH DAILY 2022-05 00:00: 00 09-30 00:00 :00 No 50 Jaden Ponce PANTOPRAZOL E SOD DR 40 MG 2022-05 00:00: 00 Yes Jaden Ponce TAKE 1 TABLET BY MOUTH DAILY 2022-05 00:00: 00 09-30 00:00 :00 No 160 Jaden Ponce METRONIDAZO LE 500 MG 2022-05 00:00: 00 Yes Jaden Ponce GABAPENTIN 800 MG 2022-05 00:00: 00 Yes 800 Jaedn Ponce TAKE 5 ML EVERY 4 TO 6 HOURS NEEDED FOR COUGH. 2022-05 00:00: 00 09-30 00:00 :00 No [id number] Jaden Ponce PANTOPRAZOL E SOD DR 40 MG 2022-05 00:00: 00 Yes Jaden Ponce LOSARTAN POTASSIUM 50 MG 2022-05 00:00: 00 Yes Jaden Ponce 1 CAP EVERY 8 HOURS NEEDED FOR COUGH 2022-05 0 00:00: 00 09-30 00:00 :00 No 200 Jaden Ponce INHALE 1 PUFF TWICE DAILY. 2022-05 0 00:00: 00 09-30 00:00 :00 No [id number] 5 Jaden Ponce TAKE 5 ML EVERY 4 TO 6 HOURS NEEDED FOR COUGH. 2022-05 0- 00:00: 00 09-30 00:00 :00 No [id number] Jaden Ponce TAKE 2 TABS DAILY THE FIRST 5 DAYS, THEN 1 TAB DAILY THE LAST 5 DAYS 2022-05 0- 00:00: 00 09-30 00:00 :00 No 4 Jaden Ponce TAKE 1 TABLET BY MOUTH THREE TIMES A DAY NEEDED FOR SEVERE LEFT SHOULDER PAIN 01-29 00:00: 00 Yes Jaden Ponce TAKE 1 TABLET BY MOUTH DAILY 01-21 00:00: 00 09-30 00:00 :00 No 40 Jaden Ponce TAKE 1 TABLET BY MOUTH DAILY 01-21 00:00: 00 09-30 00:00 :00 No 50 Jaden Ponce GABAPENTIN 800 MG 01-16 00:00: 00 Yes Jaden Ponce TRELEGY ELLIPTA 200-62.5-25 01-15 00:00: 00 Yes [id number] Jaden Ponce TAKE 2 TABS DAILY THE FIRST 5 DAYS,THEN 1 TAB DAILY THE LAST 5 DAYS 01-15 00:00: 00 09-30 00:00 :00 No 20 Jaden Ponce USE 1 SPRAY IN EACH NOSTRIL TWICE DAILY. 01-15 00:00: 00 09-30 00:00 :00 No [id number] Jaden Ponce TAKE 1 TABLET TWICE DAILY WITH FOOD. 01-15 00:00: 00 09-30 00:00 :00 No [id number] Jaden Ponce INSTILL 2 DROPS INTO BOTH EYES ONCE DAILY. 01-15 00:00: 00 09-30 00:00 :00 No 2 Jaden Ponce TAKE 5 ML EVERY 4 TO 6 HOURS NEEDED FOR COUGH. 01-15 00:00: 00 09-30 00:00 :00 No [id number] Jaden Ponce TAKE 1 TABLET BY MOUTH DAILY 01-15 00:00: 00 09-30 00:00 :00 No 10 Jaden Ponce 1 TABLET BY MOUTH THREE TIMES A DAY FOR SEVERE PAIN IN THE LEFT SHOULDER. REPLACING HYDROCODONE 12-27 00:00: 00 Yes Jaden Ponce PREDNISONE 20 MG 12-19 00:00: 00 Yes Jaden Ponce AZITHROMYCI N 250 MG 12-19 00:00: 00 Yes Jaden Ponce ALBUTEROL HFA 90 MCG INHALER 12-19 00:00: 00 Yes Jaden Ponce BREO ELLIPTA 200-25 MCG INH 12-19 00:00: 00 Yes Jaden Ponce 1 CAP EVERY 8 HOURS NEEDED FOR COUGH 12-19 00:00: 00 09-30 00:00 :00 No 200 Jaden Ponce TAKE 5 ML EVERY 4 TO 6 HOURS NEEDED FOR COUGH. 12-19 00:00: 00 09-30 00:00 :00 No [id number] Jaden Ponce INHALE 2 PUFFS EVERY 4 TO 6 HOURS NEEDED. 12-19 00:00: 00 09-30 00:00 :00 No [id number] Jaden Ponce TAKE 1 TABLET BY MOUTH AT BEDTIME 12-19 00:00: 00 09-30 00:00 :00 No 10 Jaden Ponce TAKE 1 TABLET BY MOUTH DAILY 12-17 00:00: 00 09-30 00:00 :00 No 160 Jaden Ponce TAKE 1 TABLET BY MOUTH DAILY. 12-17 00:00: 00 09-30 00:00 :00 No 50 Jaden Pnoce 1 TABLET BY MOUTH THREE TIMES A DAY FOR SEVERE PAIN IN THE LEFT SHOULDER 12-02 00:00: 00 Yes Jaden Ponce TAKE 1 TABLET BY MOUTH THREE TIMES A DAY FOR SEVERE PAIN IN THE LEFT SHOULDER 11-20 00:00: 00 Yes Jaden Ponce ACETAMINOPH EN-COD #3 11-06 00:00: 00 Yes Jaden Ponce TAKE 5 ML EVERY 4 TO 6 HOURS NEEDED FOR COUGH. 10-30 00:00: 00 09-30 00:00 :00 No [id number] Jaden Ponce TAKE 1 TABLET BY MOUTH DAILY 10-30 00:00: 00 09-30 00:00 :00 No 10 Jaden Ponce TAKE 1 TABLET DAILY. 10-30 00:00: 00 09-30 00:00 :00 No 50 Jaden Ponce TAKE 1 TABLET BY MOUTH DAILY 10-30 00:00: 00 09-30 00:00 :00 No 40 Jaden Ponce TAKE 1 TABLET 4 TIMES DAILY. 10-30 00:00: 00 09-30 00:00 :00 No 800 Jaden Ponce HYDROCODONE -ACETAMIN 10-325 MG 5-31 00:00: 00 Yes Jaden Ponce triamcinolo ne acetonide (KENALOG) injection 40 mg 10-07 21:45: 00 10-07 20:33 :00 No [id number] 40mg [facility] TRAMADOL HCL 50 MG 10-07 00:00: 00 Yes Jaden Ponce traMADoL 50 mg tablet 10-07 00:00: 00 10-15 04:59 :00 No [id number] 50mg Take 1 tablet by mouth every 6 (six) hours as needed for Pain (scale 4-6) for up to 7 days. Indication s: acute pain [facility] TAKE 1 TABLET BY MOUTH EVERY DAY 10-01 00:00: 00 Yes Jaden Ponce HYDROCODONE -ACETAMIN 5-325 MG 10-01 00:00: 00 Yes Jaden Ponce amLODIPine 5 mg tablet 10-01 00:00: 00 Yes 5mg Take 1 tablet by mouth in the morning. [facility] NEOMYCIN-PO LYMYXIN-HC EAR SOLN 08-21 00:00: 00 Yes Jaden Ponce ALBUTEROL HFA 90 MCG INHALER 08-21 00:00: 00 Yes 90 Jaden Ponce PREDNISONE 20 MG 08-21 00:00: 00 Yes 20 Jaden Ponce TAKE 2 TABLETS ON DAY 1 THEN TAKE 1 TABLET A DAY FOR 4 DAYS. 08-21 00:00: 00 09-30 00:00 :00 No 250 Jaden Ponce TAKE 5 ML EVERY 4 TO 6 HOURS NEEDED FOR COUGH. 08-21 00:00: 00 09-30 00:00 :00 No [id number] Jaden Ponce INSTILL 3 DROPS IN BOTH EARS 3-4 TIMES DAILY. 08-21 00:00: 00 09-30 00:00 :00 No Jaden Ponce INHALE 2 PUFFS TWICE DAILY. 08-21 00:00: 00 09-30 00:00 :00 No [id number] Jaden Ponce TAKE 1 TABLET BY MOUTH AT BEDTIME 08-21 00:00: 00 09-30 00:00 :00 No 10 Jadenluna Ponce INHALE 2 PUFFS EVERY 4 TO 6 HOURS NEEDED. 08-21 00:00: 09-30 00:00 :00 No [id number] Jaden Ponce pantoprazol e 40 mg EC tablet 08-20 00:00: 00 Yes Landy corrigan [facility] PREDNISONE 20 MG 08-15 00:00: 00 Yes 20 Jaden Serafin Ponce ALBUTEROL HFA 90 MCG INHALER 08-15 00:00: 00 Yes 90 Jaden Ponce INHALE 2 PUFFS EVERY 4 TO 6 HOURS NEEDED. 08-15 00:00: 00 09-30 00:00 :00 No [id number] Jaden Ponce TAKE 5 ML EVERY 4 TO 6 HOURS NEEDED FOR COUGH. 08-15 00:00: 00 09-30 00:00 :00 No [id number] Jaden Serafin Ponce 1 CAP EVERY 8 HOURS NEEDED FOR COUGH 08-15 00:00: 00 09-30 00:00 :00 No 200 Jaden Serafin Ponce INHALE 2 PUFFS TWICE DAILY. 08-15 00:00: 00 09-30 00:00 :00 No [id number] Jaden Serafin Ponce TAKE 1 TABLET BY MOUTH AT BEDTIME 08-15 00:00: 00 09-30 00:00 :00 No 10 Jaden Serafin Ponce TAKE 1 TABLET BY MOUTH DAILY 07-26 00:00: 00 09-30 00:00 :00 No 40 Jaden Serafin Ponce TAKE 1 TABLET BY MOUTH AT BEDTIME 07-26 00:00: 00 09-30 00:00 :00 No 10 Jaden Serafin Ponce TAKE 1 TABLET BY MOUTH DAILY 3- 00:00: 00 09-30 00:00 :00 No 10 Jaden Serafin Kris GABAPENTIN 800 MG 2-16 00:00: 00 Yes 800 Jaden Serafin Kris TAKE 1 TABLET DAILY. - 00:00: 00 09-30 00:00 :00 No 160 Jaden Ponce TAKE 1 TABLET DAILY. 2-16 00:00: 00 09-30 00:00 :00 No 25 Jaden Ponce ACETAMINOPH EN-COD #3 2-09 00:00: 00 Yes Jaden Ponce PANTOPRAZOL E SOD DR 40 MG 1-11 00:00: 00 09-30 00:00 :00 No Jaden Ponce TAKE 1 TABLET AT BEDTIME. - 00:00: 00 09-30 00:00 :00 No 10 Jaden Ponce TAKE 5 ML EVERY 4 TO 6 HOURS NEEDED FOR COUGH. - 00:00: 00 09-30 00:00 :00 No [id number] Jaden Pocne TAKE 1 TABLET BY MOUTH DAILY - 00:00: 00 09-30 00:00 :00 No 10 Jaden Ponce TAKE 1 TABLET BY MOUTH THREE TIMES A DAY NEEDED FOR PAIN 05-28 00:00: 00 Yes Jaden Ponce GABAPENTIN 800 MG 1- 00:00: 00 Yes Jaden Ponce ALBUTEROL HFA 90 MCG INHALER 2021-05 00:00: 00 Yes Jaden Ponce INHALE 2 PUFFS EVERY 4 TO 6 HOURS NEEDED. 2021-05 00:00: 00 09-30 00:00 :00 No [id number] Jaden Ponce TAKE 1 TABLET BY MOUTH EVERY DAY FOR BACK PAIN 2021-05 00:00: 00 Yes Jaden Ponce METHYLPREDN ISOLONE 4 MG DOSEPK 2021-05 2- 00:00: 00 Yes Jaden Ponce PREDNISONE 20 MG 2021-05- 00:00: 00 Yes Jaden Ponce AZITHROMYCI N 250 MG 2021-05 00:00: 00 Yes Jaden Ponce INHALE 2 PUFFS TWICE DAILY. 2021-05- 00:00: 00 09-30 00:00 :00 No [id number] Jaden Ponce Dose Unknown 2021-05 2- 00:00: 00 Yes 20 Jaden Ponce PREGABALIN 300 MG CAPSULE</Te xt> <Code> <Value>[id number]</Va lue> <CodingSyst em>NDC</Cod ingSystem> </Code> 2021-05 2- 00:00: 00 Yes 300 Jaden Ponce Dose Unknown 2021-05 2- 00:00: 00 Yes Jaden Ponce Dose Unknown 2021-05 2- 00:00: 00 Yes Jaden Ponce Dose Unknown 2021-05 2- 00:00: 00 Yes Jaden Ponce Dose Unknown 2021-05 2- 00:00: 00 Yes Jaden Pnoce PROAIR HFA 90 MCG INHALER</Te xt> <Code> <Value>[id number]</Va lue> <CodingSyst em>NDC</Cod ingSystem> </Code> 2021-05 2- 00:00: 00 Yes Jaden Ponce Dose Unknown 2021-05 2- 00:00: 00 Yes Jaden Ponce AMOX-CLAV 875-125 MG TABLET</Nicolás t> <Code> <Value>0009 [id number]</Va lue> <CodingSyst em>NDC</Cod ingSystem> </Code&gt 2021-05 2- 00:00: 00 Yes Jaden Ponce HYDROCHLORO THIAZIDE 25 MG TAB</Text> <Code> <Value>0017 [id number]</Va lue> <CodingSyst em>NDC</Cod ingSystem> </Code& 2021-05 2- 00:00: 00 Yes 25 Jaden Ponce Dose Unknown 2021-05 2- 00:00: 00 Yes Jaden Ponce PREGABALIN 150 MG CAPSULE</Te xt> <Code> <Value>0022 [id number]</Va lue> <CodingSyst em>NDC</Cod ingSystem> </Code> 2021-05 2- 00:00: 00 Yes 150 Jaden Ponce TAKE 1 CAPSULE BY MOUTH THREE TIMES DAILY 2021-05 2- 00:00: 00 Yes 300 Jaden Ponce Dose Unknown 2021-05 2- 00:00: 00 Yes Jaden Ponce Dose Unknown 2021-05 2- 00:00: 00 Yes Jaden Ponce Dose Unknown 2021-05 2 00:00: 00 No 20 TAKE 2 TABLETS ON DAY 1 THEN TAKE 1 TABLET A DAY FOR 4 DAYS. 2021-05 00:00: 00 No 250 PREGABALIN 300 MG CAPSULE</Te xt> <Code> <Value>0022 [id number]</Va lue> <CodingSyst em>NDC</Cod ingSystem> </Code> 2021-05 00:00: 00 No 300 Dose Unknown 2021-05 00:00: 00 No Dose Unknown 2021-05 00:00: 00 No Dose Unknown 2021-05 00:00: 00 No Dose Unknown 2021-05 00:00: 00 No INHALE 1 PUFF TWICE DAILY. 2021-05 00:00: 00 No [id number] 5 INHALE 2 PUFFS EVERY 4 TO 6 HOURS NEEDED. 2021-05 00:00: 00 No [id number] PROAIR HFA 90 MCG INHALER</Te xt> <Code> <Value>[id number]</Va lue> <CodingSyst em>NDC</Cod ingSystem> </Code> 2021-05 00:00: 00 No Dose Unknown 2021-05 00:00: 00 No AMOX-CLAV 875-125 MG TABLET</Nicolás t> <Code> <Value>0009 [id number]</Va lue> <CodingSyst em>NDC</Cod ingSystem> </Code&gt 2021-05 00:00: 00 No HYDROCHLORO THIAZIDE 25 MG TAB</Text> <Code> <Value>0017 [id number]</Va lue> <CodingSyst em>NDC</Cod ingSystem> </Code& 2021-05 00:00: 00 No 25 TAKE 1 TABLET AT BEDTIME. 2021-05 00:00: 00 No 20 Dose Unknown 2021-05 00:00: 00 No PREGABALIN 150 MG CAPSULE</Te xt> <Code> <Value>0022 [id number]</Va lue> <CodingSyst em>NDC</Cod ingSystem> </Code> 2021-05 00:00: 00 No 150 TAKE 5 ML DAILY AT BEDTIME. 2021-05 2 00:00: 00 No [id number] TAKE 1 TABLET DAILY. 2021-05 00:00: 00 No 160 TAKE 1 CAPSULE BY MOUTH THREE TIMES DAILY 2021-05 2 00:00: 00 No 300 Dose Unknown 2021-05 2 00:00: 00 No TAKE 1 TABLET 4 TIMES DAILY. 2021-05 00:00: 00 No 800 Dose Unknown 2021-05 00:00: 00 No TAKE 2 TABLETS ON DAY 1 THEN TAKE 1 TABLET A DAY FOR 4 DAYS. 2021-05 00:00: 00 09-30 00:00 :00 No 250 Jaden Ponce INHALE 1 PUFF TWICE DAILY. 2021-05 00:00: 00 09-30 00:00 :00 No [id number] 5 Jaden Ponce INHALE 2 PUFFS EVERY 4 TO 6 HOURS NEEDED. 2021-05 00:00: 00 09-30 00:00 :00 No [id number] Jaden Ponce TAKE 1 TABLET AT BEDTIME. 2021-05 00:00: 00 09-30 00:00 :00 No 20 Jaden Ponce TAKE 5 ML DAILY AT BEDTIME. 2021-05 00:00: 00 09-30 00:00 :00 No [id number] Jaden Ponce TAKE 1 TABLET DAILY. 2021-05 00:00: 00 09-30 00:00 :00 No 160 Jaden Ponce TAKE 1 TABLET 4 TIMES DAILY. 2021-05 00:00: 00 09-30 00:00 :00 No 800 Jaden Ponce INHALE 2 PUFFS TWICE DAILY. 2021-05 00:00: 00 09-30 00:00 :00 No [id number] Jaden Serafin Ponce TRELEGY ELLIPTA 200-62.5-25 2021-05 1-08 00:00: 00 Yes Jaden Ponce AZITHROMYCI N 250 MG 2021-05 0-27 00:00: 00 Yes 250 Jadenluna Ponce TRELEGY ELLIPTA 200-62.5-25 2022-1 0-27 00:00: 00 Yes [id number] Jaden Ponce ATORVASTATI N 20 MG 2021-1 0-12 00:00: 00 Yes 20 Jaden Ponce HYDROCHLORO THIAZIDE 25 MG 2021-1 0-10 00:00: 00 Yes 25 Jaden Ponce GABAPENTIN 800 MG 2021-1 0-10 00:00: 00 Yes 800 Jaden Ponce PREDNISONE 20 MG 2021-1 0-10 00:00: 00 Yes 20 Jaden Ponce PREGABALIN 300 MG CAPSULE 2-0 9-19 00:00: 00 Yes Jaden Ponce PREGABALIN 300 MG CAPSULE 2-0 9-19 00:00: 00 No PREGABALIN 300 MG CAPSULE 2-0 9-19 00:00: 00 No PREGABALIN 300 MG CAPSULE 2-0 9-19 00:00: 00 No Lyrica 150 mg capsule 2-0 8-16 00:00: 00 Yes 1mg Jaden Ponce &lt 2022-0 8-16 00:00: 00 Yes 300 Jaden Ponce Dose Unknown 2-0 8-16 00:00: 00 Yes 20 Jaden Ponce PREGABALIN 150 MG CAPSULE 2-0 8-16 00:00: 00 Yes 150 Jaden Ponce Lyrica 150 mg capsule 2-0 8-16 00:00: 00 No 1mg &lt 2022-0 8-16 00:00: 00 No 300 Dose Unknown 2022-0 8-16 00:00: 00 No 20 Lyrica 150 mg capsule 2022-0 8-16 00:00: 00 No 1mg &lt 2022-0 8-16 00:00: 00 No 300 Dose Unknown 2022-0 8-16 00:00: 00 No 20 Lyrica 150 mg capsule 2022-0 8-16 00:00: 00 No 1mg &lt 2022-0 8-16 00:00: 00 No 300 Dose Unknown 2022-0 8-16 00:00: 00 No 20 Dose Unknown 2022-0 8-15 00:00: 00 Yes 20 Jaden Ponce &lt 2022-0 8-15 00:00: 00 Yes 300 Jaden Ponce Dose Unknown 2022-0 8-15 00:00: 00 No 20 &lt 2022-0 8-15 00:00: 00 No 300 Dose Unknown 0 8-15 00:00: 00 No 20 &lt 2-0 8-15 00:00: 00 No 300 Dose Unknown 0 8-15 00:00: 00 No 20 &lt 2-0 8-15 00:00: 00 No 300 azithromyci n 250 mg tablet 0 7-15 00:00: 00 Yes mg Jaden Ponce prednisone 20 mg tablet 0 7-15 00:00: 00 Yes mg Jaden Ponce Lyrica 150 mg capsule 0 715 00:00: 00 Yes 1mg Jaden Ponce TAKE 1 TABLET BY MOUTH TWICE DAILY 15 00:00: 00 Yes 875 Jaden Ponce Dose Unknown 15 00:00: 00 Yes 250 Jaden Ponce &lt 0 715 00:00: 00 Yes 300 Jaden Ponce PREGABALIN 150 MG CAPSULE 715 00:00: 00 Yes 150 Jaden Ponce azithromyci n 250 mg tablet 15 00:00: 00 No mg prednisone 20 mg tablet 0 715 00:00: 00 No mg Lyrica 150 mg capsule 0 715 00:00: 00 No 1mg TAKE 1 TABLET BY MOUTH TWICE DAILY 15 00:00: 00 No 875 Dose Unknown 15 00:00: 00 No 250 &lt 2021-0 715 00:00: 00 No 300 azithromyci n 250 mg tablet 0 15 00:00: 00 No mg prednisone 20 mg tablet 15 00:00: 00 No mg Lyrica 150 mg capsule 715 00:00: 00 No 1mg TAKE 1 TABLET BY MOUTH TWICE DAILY 15 00:00: 00 No 875 Dose Unknown 15 00:00: 00 No 250 &lt 2021-0 7-15 00:00: 00 No 300 azithromyci n 250 mg tablet 0 715 00:00: 00 No mg prednisone 20 mg tablet 0 15 00:00: 00 No mg Lyrica 150 mg capsule 2021-0 7-15 00:00: 00 No 1mg TAKE 1 TABLET BY MOUTH TWICE DAILY 2021-0 -15 00:00: 00 No 875 Dose Unknown 2021-0 - 00:00: 00 No 250 &lt 2022-0 7-15 00:00: 00 No 300 pregabalin 300 mg capsule 2-0 7- 00:00: 00 Yes 1mg Jaden Ponce &lt 2022-0 7- 00:00: 00 Yes 20 Jaden Ponce TAKE 1 TABLET BY MOUTH FOUR TIMES DAILY 2021-0 - 00:00: 00 Yes 600 Jaden Ponce Dose Unknown 2021-0 7- 00:00: 00 Yes 250 Jaden Ponce pregabalin 300 mg capsule 2021-0 - 00:00: 00 No 1mg &lt 2-0 7-06 00:00: 00 No 20 TAKE 1 TABLET BY MOUTH FOUR TIMES DAILY 2021-0 - 00:00: 00 No 600 &lt 2022-0 7- 00:00: 00 No 300 Dose Unknown 2021-0 7- 00:00: 00 No 250 pregabalin 300 mg capsule 2021-0 7- 00:00: 00 No 1mg &lt 2022-0 7- 00:00: 00 No 20 TAKE 1 TABLET BY MOUTH FOUR TIMES DAILY 2021-0 - 00:00: 00 No 600 &lt 2022-0 7-06 00:00: 00 No 300 Dose Unknown 2021-0 7- 00:00: 00 No 250 pregabalin 300 mg capsule 2021-0 7- 00:00: 00 No 1mg &lt 2022-0 7- 00:00: 00 No 20 TAKE 1 TABLET BY MOUTH FOUR TIMES DAILY 2021-0 7- 00:00: 00 No 600 &lt 2022-0 7-06 00:00: 00 No 300 Dose Unknown 2021-0 7-06 00:00: 00 No 250 pregabalin 300 mg capsule 2021-0 6-06 00:00: 00 Yes 1mg Jaden Ponce &lt 2022-0 6-06 00:00: 00 Yes Jaden Ponce pregabalin 300 mg capsule 2022-0 6-06 00:00: 00 No 1mg &lt 2022-0 6-06 00:00: 00 No pregabalin 300 mg capsule 2022-0 6-06 00:00: 00 No 1mg &lt 2022-0 6-06 00:00: 00 No pregabalin 300 mg capsule 2022-0 6-06 00:00: 00 No 1mg &lt 2022-0 6-06 00:00: 00 No pregabalin 300 mg capsule 2022-0 5-05 00:00: 00 Yes 1mg Jaden Ponce pregabalin 300 mg capsule 2022-0 5-05 00:00: 00 No 1mg pregabalin 300 mg capsule 2022-0 5-05 00:00: 00 No 1mg pregabalin 300 mg capsule 2022-0 5-05 00:00: 00 No 1mg Dose Unknown 2022-0 4-07 00:00: 00 Yes Jaden Ponce Dose Unknown 2022-0 4-07 00:00: 00 No Dose Unknown 2022-0 4-07 00:00: 00 No Dose Unknown 2022-0 4-07 00:00: 00 No amoxicillin 875 mg-potassiu m clavulanate 125 mg tablet 2022-0 3-30 00:00: 00 Yes 1mg Jaden Ponce Bromfed DM 2 mg-30 mg-10 mg/5 mL oral syrup 2-0 3-30 00:00: 00 Yes 10mg/5 mL Jaden Ponce Dose Unknown 2022-0 3-30 00:00: 00 Yes Jaden Ponce Dose Unknown 2022-0 3-30 00:00: 00 Yes Jaden Ponce Dose Unknown 2022-0 3-30 00:00: 00 Yes Jaden Ponce Dose Unknown 2022-0 3-30 00:00: 00 Yes Jaden Ponce amoxicillin 875 mg-potassiu m clavulanate 125 mg tablet 2-0 3-30 00:00: 00 No 1mg Bromfed DM 2 mg-30 mg-10 mg/5 mL oral syrup 2-0 3-30 00:00: 00 No 10mg/5 mL Dose Unknown 2022-0 3-30 00:00: 00 No Dose Unknown 2022-0 3-30 00:00: 00 No Dose Unknown 2022-0 3-30 00:00: 00 No Dose Unknown 2022-0 3-30 00:00: 00 No amoxicillin 875 mg-potassiu m clavulanate 125 mg tablet 2-0 3-30 00:00: 00 No 1mg Bromfed DM 2 mg-30 mg-10 mg/5 mL oral syrup 2-0 3-30 00:00: 00 No 10mg/5 mL Dose Unknown 2022-0 3-30 00:00: 00 No Dose Unknown 2022-0 3-30 00:00: 00 No Dose Unknown 2022-0 3-30 00:00: 00 No Dose Unknown 2-0 3-30 00:00: 00 No amoxicillin 875 mg-potassiu m clavulanate 125 mg tablet 2-0 3-30 00:00: 00 No 1mg Bromfed DM 2 mg-30 mg-10 mg/5 mL oral syrup 2-0 3-30 00:00: 00 No 10mg/5 mL Dose Unknown 2022-0 3-30 00:00: 00 No Dose Unknown 2-0 330 00:00: 00 No Dose Unknown 2-0 330 00:00: 00 No Dose Unknown 2022-0 3-30 00:00: 00 No Dose Unknown 2022-0 3-07 00:00: 00 Yes Jaden Ponce Dose Unknown 2-0 3-07 00:00: 00 No Dose Unknown 2-0 3-07 00:00: 00 No Dose Unknown 2-0 3-07 00:00: 00 No albuterol sulfate HFA 90 mcg/actuati on aerosol inhaler 2-0 2-12 00:00: 00 Yes 12mcg/a ctuatio n Jaden Ponce albuterol sulfate HFA 90 mcg/actuati on aerosol inhaler 2-0 2-12 00:00: 00 No 12mcg/a ctuatio n albuterol sulfate HFA 90 mcg/actuati on aerosol inhaler 2-0 2-12 00:00: 00 No 12mcg/a ctuatio n albuterol sulfate HFA 90 mcg/actuati on aerosol inhaler 2-0 2-12 00:00: 00 No 12mcg/a ctuatio n pregabalin 300 mg capsule 2-09 00:00: 00 Yes 1mg Jaden Ponce pregabalin 300 mg capsule 2-09 00:00: 00 No 1mg pregabalin 300 mg capsule 0 2-09 00:00: 00 No 1mg pregabalin 300 mg capsule 0 2-09 00:00: 00 No 1mg ProAir HFA 90 mcg/actuati on aerosol inhaler 1-12 00:00: 00 Yes 12mcg/a ctuatio n Jaden Ponce azithromyci n 250 mg tablet 1-12 00:00: 00 Yes mg Jaden Ponce prednisone 20 mg tablet 1-12 00:00: 00 Yes mg Jaden Ponce pregabalin 300 mg capsule 1-12 00:00: 00 Yes 1mg Jaden Ponce Bromfed DM 2 mg-30 mg-10 mg/5 mL oral syrup 1-12 00:00: 00 Yes 5mg/5 mL Jaden Ponce ipratropium 0.5 mg-albutero l 3 mg (2.5 mg base)/3 mL nebulizatio n soln 1-12 00:00: 00 Yes 3mg base)/3 mL Jaden Ponce ProAir HFA 90 mcg/actuati on aerosol inhaler [...] - 00:00: 00 No 3mg base)/3 mL pregabalin 300 mg capsule 2020-05- 00:00: 00 Yes 1mg Jaden Ponce pregabalin 300 mg capsule 2020-05 2- 00:00: 00 No 1mg pregabalin 300 mg capsule 2020-05-16 00:00: 00 No 1mg pregabalin 300 mg capsule 2020-05-16 00:00: 00 No 1mg ProAir HFA 90 mcg/actuati on aerosol inhaler 2020-05- 00:00: 00 Yes 12mcg/a ctuatio n Jaden Ponce pregabalin 300 mg capsule 2020-05- 00:00: 00 Yes 1mg Jaden Ponce ProAir HFA 90 mcg/actuati on aerosol inhaler [...] 600 mg tablet 2020-05 0-05 00:00: 00 Yes 1mg Jaden Ponce prednisone 20 mg tablet 2020-05 0-05 00:00: 00 Yes mg Jadenluna Ponce gabapentin 300 mg capsule 2020-05 0-05 00:00: 00 Yes 1mg Jaden Ponce gabapentin 600 mg tablet 2020-05 0-05 00:00: [...] mcg/actuati on aerosol inhaler 8- 00:00: 00 Yes 12mcg/a ctuatio obdulio Stanley Serafin Ponce amoxicillin 875 mg-bertha de la cruz clavulanate 125 mg tablet 8-06 00:00: 00 Yes 1mg Jadenluna Ponce gabapentin 600 mg tablet - 00:00: 00 Yes 1mg Jaden Ponce prednisone 20 mg tablet 8- 00:00: 00 Yes mg Jaden Ponce gabapentin 300 mg capsule - 00:00: 00 Yes 1mg Jaden Ponce ProAir HFA 90 mcg/actuati on aerosol inhaler 8- 00:00: 00 No 12mcg/a ctuatio n amoxicillin 875 mg-potassiu m clavulanate 125 mg tablet 8- 00:00: 00 No 1mg gabapentin 600 mg tablet 12-22 00:00: 00 No 1mg prednisone 20 mg tablet 12-22 00:00: 00 No mg gabapentin 300 mg capsule 12-22 00:00: 00 No 1mg ProAir HFA 90 mcg/actuati on aerosol inhaler 12-22 00:00: 00 No 12mcg/a ctuatio n amoxicillin 875 mg-potassiu m clavulanate 125 mg tablet - 00:00: 00 No 1mg gabapentin 600 mg tablet 12-22 00:00: 00 No 1mg prednisone 20 mg tablet 12-22 00:00: 00 No mg gabapentin 300 mg capsule 12-22 00:00: 00 No 1mg ProAir HFA 90 mcg/actuati on aerosol inhaler 12-22 00:00: 00 No 12mcg/a ctuatio n amoxicillin 875 mg-potassiu m clavulanate 125 mg tablet - 00:00: 00 No 1mg gabapentin 600 mg tablet 12-22 00:00: 00 No 1mg prednisone 20 mg tablet - 00:00: 00 No mg gabapentin 300 mg capsule - 00:00: 00 No 1mg gabapentin 600 mg tablet 10-05 00:00: 00 Yes 1mg Jaden Ponce gabapentin 300 mg capsule 5- 00:00: 00 Yes 1mg Jaden Ponce gabapentin 600 mg tablet 5- 00:00: 00 No 1mg gabapentin 300 mg capsule 10-05 00:00: 00 No 1mg gabapentin 600 mg tablet 10-05 00:00: 00 No 1mg gabapentin 300 mg capsule 10-05 00:00: 00 No 1mg gabapentin 600 mg tablet 10-05 00:00: 00 No 1mg gabapentin 300 mg capsule 10-05 00:00: 00 No 1mg gabapentin 600 mg tablet 07-11 00:00: 00 Yes 1mg Jaden Ponce prednisone 20 mg tablet 07-11 00:00: 00 Yes mg Jaden Ponce gabapentin 300 mg capsule 07-11 00:00: 00 Yes 1mg Jaden Ponce ipratropium 0.5 mg-albutero l 3 mg (2.5 mg base)/3 mL nebulizatio n soln 07-11 00:00: 00 Yes 3mg base)/3 mL Jaden Ponce gabapentin 600 mg tablet 07-11 00:00: 00 [...] (2.5 mg base)/3 mL nebulizatio n soln 2-23 00:00: 00 No 3mg base)/3 mL amoxicillin 875 mg-potassiu m clavulanate 125 mg tablet -14 00:00: 00 Yes 1mg Jaden Ponce amoxicillin 875 mg-potassiu m clavulanate 125 mg tablet - 00:00: 00 No 1mg amoxicillin 875 mg-potassiu m clavulanate 125 mg tablet - 00:00: 00 No 1mg amoxicillin 875 mg-potassiu m clavulanate 125 mg tablet 06-01 00:00: 00 No 1mg ProAir HFA 90 mcg/actuati on aerosol inhaler - 00:00: 00 Yes 12mcg/a ctuatio n Jaden Ponce Combivent Respimat 20 mcg-100 mcg/actuati on solution for inhalation - 00:00: 00 Yes 1mcg/ac tuation Jaden Ponce prednisone 20 mg tablet - 00:00: 00 Yes mg Jaden Ponce ipratropium 0.5 mg-albutero l 3 mg (2.5 mg base)/3 mL nebulizatio n soln -04 00:00: 00 Yes 3mg base)/3 mL Jaden Ponce ProAir HFA 90 mcg/actuati on aerosol inhaler 1- 00:00: 00 No 12mcg/a ctuatio n Combivent Respimat 20 mcg-100 mcg/actuati on solution for inhalation -04 00:00: 00 No 1mcg/ac tuation prednisone 20 mg tablet 1-04 00:00: 00 No mg ipratropium 0.5 mg-albutero l 3 mg (2.5 mg base)/3 mL nebulizatio n soln 1-04 00:00: 00 No 3mg base)/3 mL ProAir HFA 90 mcg/actuati on aerosol inhaler -04 00:00: 00 No 12mcg/a ctuatio n Combivent [...] mcg/actuati on aerosol inhaler 2019-05 00:00: 00 Yes 12mcg/a ctuatio n Jaden F Kris ProAir HFA 90 mcg/actuati on aerosol inhaler 2019-05 00:00: 00 No 12mcg/a ctuatio n ProAir HFA 90 mcg/actuati on aerosol inhaler 2019-05 00:00: 00 No 12mcg/a ctuatio n ProAir HFA 90 mcg/actuati on aerosol inhaler 2019-05 00:00: 00 No 12mcg/a ctuatio n ProAir RespiClick 90 mcg/actuati on breath activated 2019-05 00:00: 00 Yes 1mcg/ac tuation Jaden Ponce gabapentin 600 mg tablet 2019-05 00:00: 00 Yes 1mg Jaden Ponce gabapentin 300 mg capsule 2019-05 00:00: 00 Yes 1mg Jaden Ponce ProAir RespiClick 90 mcg/actuati on breath activated [...] mcg/actuati on breath activated 01-19 00:00: 00 Yes 1mcg/ac tuation Jaden Ponce Combivent Respimat 20 mcg-100 mcg/actuati on solution for inhalation 01-19 00:00: 00 Yes 1mcg/ac tuation Jaden Betancourt Kris Advair Diskus 250 mcg-50 mcg/dose powder for inhalation 01-19 00:00: 00 Yes 1mcg/do se Jaden Ponce gabapentin 600 mg tablet 01-19 00:00: 00 Yes 1mg Jadenluna Ponce gabapentin 300 mg capsule 01-19 00:00: 00 Yes 1mg Jaden Serafin Ponce albuterol sulfate 1.25 mg/3 mL solution for nebulizatio n 01-19 00:00: 00 Yes 3mg/3 mL Jaden Ponce Combivent Respimat 20 mcg-100 mcg/actuati on solution [...] 0 - 00:00: 00 No 1mcg/ac tuation ProAir RespiClick [...] No 3mg/3 mL gabapentin 600 mg tablet -14 00:00: 00 Yes 1mg Jaden Ponce gabapentin 600 mg tablet 0 -14 00:00: 00 No 1mg gabapentin 600 mg tablet 12-30 00:00: 00 No 1mg gabapentin 600 mg tablet - 00:00: 00 No 1mg gabapentin 300 mg capsule - 00:00: 00 Yes 1mg Jaden Ponce gabapentin 300 mg capsule 12-19 00:00: 00 No 1mg gabapentin 300 mg capsule 12-19 00:00: 00 No 1mg gabapentin 300 mg capsule 12-19 00:00: 00 No 1mg gabapentin 600 mg tablet 11-30 00:00: 00 Yes 1mg Jaden Ponce gabapentin 600 mg tablet 11-30 00:00: 00 No 1mg gabapentin 600 mg tablet 11-30 00:00: 00 No 1mg gabapentin 600 mg tablet 11-30 00:00: 00 No 1mg amoxicillin 500 mg tablet 07-21 00:00: 00 Yes 1mg Jaden Ponce prednisone 20 mg tablet 07-21 00:00: 00 Yes 1mg Jaden Ponce amoxicillin 500 mg tablet 07-21 00:00: 00 No 1mg prednisone 20 mg tablet 07-21 00:00: 00 No 1mg amoxicillin 500 mg tablet 07-21 00:00: 00 No 1mg prednisone 20 mg tablet 07-21 00:00: 00 No 1mg amoxicillin 500 mg tablet 07-21 00:00: 00 No 1mg prednisone 20 mg tablet 07-21 00:00: 00 No 1mg Immunizations Ordered Immunization Name Filled Immunization Name Date Status Comments Source Prevnar 20 Prevnar 20 2022-05-29 00:00:00 Samanta Ponce SHINGRIX VACCINE SHINGRIX VACCINE 2022-05-29 00:00:00 Completed Jaden Ponce Td(adult) unspecified fo Td(adult) unspecified fo 2017-01-21 00:00:00 Samanta Ponce Influenza, seasonal, inj Influenza, seasonal, inj 2015-08-17 00:00:00 Samanta Ponce Tdap Tdap 2014-01-04 00:00:00 Samanta Ponce Vital Signs Vital Name Observation Time Observation Value Comments S ilir Systolic blood pressure 2022-10-07 20:05:00 133 mm[Hg] [facility] Diastolic blood pressure 2022-10-07 20:05:00 70 mm[Hg] [facility] Heart rate 2022-10-07 20:05:00 96 /min [facility] Body height 2022-10-07 20:05:00 152.4 cm [facility] Body weight 2022-10-07 20:05:00 69.854 kg [facility] BMI 2022-10-07 20:05:00 30.08 kg/m2 [facility] BP Systolic 2024-02-25 10:57:00 133 mm[Hg] Step hen F Kris BP Diastolic 2024-02-25 10:57:00 78 mm[Hg] Manny phen F Kris Weight Measured 2024-02-25 10:57:00 129.80 pounds Jaden F Kris Height Measured 2024-02-25 10:57:00 60.00 inches Jaden F Kris Body Temperature 2024-02-25 10:57:00 98.10 degrees Jaden F Kris Heart Rate 2024-02-25 10:57:00 81.00 /min Kinga en F Kris Respiratory Rate 2024-02-25 10:57:00 17.00 /min Jaden F Kris BP Systolic 2023-11-13 17:12:00 123 mm[Hg] Step hen F Kris BP Diastolic 2023-11-13 17:12:00 65 mm[Hg] Manny phen F Kris Weight Measured 2023-11-13 17:12:00 Jaden F Kris Height Measured 2023-11-13 17:12:00 Jaden F Kris Body Temperature 2023-11-13 17:12:00 Jaden F Kris Heart Rate 2023-11-13 17:12:00 Kinga en F Kris Respiratory Rate 2023-11-13 17:12:00 Jaden F Kris BP Systolic 2023-08-26 15:56:00 149 mm[Hg] Step hen F Kris BP Diastolic 2023-08-26 15:56:00 83 mm[Hg] Manny phen F Kris Weight Measured 2023-08-26 15:56:00 131.80 pounds Jaden F Kris Height Measured 2023-08-26 15:56:00 60.00 inches Jaden F Kris Body Temperature 2023-08-26 15:56:00 98.40 degrees Jaden F Kris Heart Rate 2023-08-26 15:56:00 98.00 /min Kinga en F Kris Respiratory Rate 2023-08-26 15:56:00 Jaden F Kris BP Systolic 2023-08-04 11:15:00 Step hen F Kris BP Diastolic 2023-08-04 11:15:00 Manny phen F Kris Weight Measured 2023-08-04 11:15:00 Jaden F Kris Height Measured 2023-08-04 11:15:00 Jaden F Kris Body Temperature 2023-08-04 11:15:00 Jaden F Kris Heart Rate 2023-08-04 11:15:00 Kinga en F Kris Respiratory Rate 2023-08-04 11:15:00 Jaden F Kris BP Systolic 2023-06-17 17:30:00 153 mm[Hg] Step hen F Kris BP Diastolic 2023-06-17 17:30:00 75 mm[Hg] Manny phen F Kris Weight Measured 2023-06-17 17:30:00 134.20 pounds Jaden F Kris Height Measured 2023-06-17 17:30:00 60.00 inches Jaden F Kris Body Temperature 2023-06-17 17:30:00 98.00 degrees Jaden F Kris Heart Rate 2023-06-17 17:30:00 94.00 /min Kinga en F Kris Respiratory Rate 2023-06-17 17:30:00 16.00 /min Jaden F Kris BP Systolic 2023-02-18 14:48:00 129 mm[Hg] Step hen F Rkis BP Diastolic 2023-02-18 14:48:00 79 mm[Hg] Manny phen F Kris Weight Measured 2023-02-18 14:48:00 143.60 pounds Jaden F Kris Height Measured 2023-02-18 14:48:00 60.00 inches Jaden F Kris Body Temperature 2023-02-18 14:48:00 98.40 degrees Jaden F Kris Heart Rate 2023-02-18 14:48:00 93.00 /min Kinga en F Kris Respiratory Rate 2023-02-18 14:48:00 Jaden F Kris BP Systolic 2022-08-20 13:47:00 159 mm[Hg] Step hen F Kris BP Diastolic 2022-08-20 13:47:00 81 mm[Hg] Manny phen F Kris Weight Measured 2022-08-20 13:47:00 152.20 pounds Jaden F Kris Height Measured 2022-08-20 13:47:00 Jaden F Kris Body Temperature 2022-08-20 13:47:00 98.30 degrees Jaden F Kris Heart Rate 2022-08-20 13:47:00 Kinga en F Kris Respiratory Rate 2022-08-20 13:47:00 Jaden F Kris BP Systolic 2022-05-29 14:14:00 169 mm[Hg] Step hen F Kris BP Diastolic 2022-05-29 14:14:00 95 mm[Hg] Manny phen F Kris Weight Measured 2022-05-29 14:14:00 150.20 pounds Jaden F Kris Height Measured 2022-05-29 14:14:00 60.00 inches Jaden F Kris Body Temperature 2022-05-29 14:14:00 98.00 degrees Jaden F Kris Heart Rate 2022-05-29 14:14:00 86.00 /min Kinga en F Kris Respiratory Rate 2022-05-29 14:14:00 17.00 /min Jaden F Kris BP Systolic 2022-03-26 10:04:00 148 mm[Hg] Step hen F Kris BP Diastolic 2022-03-26 10:04:00 85 mm[Hg] Manny phen F Kris Weight Measured 2022-03-26 10:04:00 153.40 pounds Jaden F Kris Height Measured 2022-03-26 10:04:00 60.00 inches Jaden F Kris Body Temperature 2022-03-26 10:04:00 98.30 degrees Jaden F Kris Heart Rate 2022-03-26 10:04:00 94.00 /min Kinga en F Kris Respiratory Rate 2022-03-26 10:04:00 18.00 /min Jaden F Kris BP Systolic 2022-02-25 11:08:00 151 mm[Hg] Step hen F Kris BP Diastolic 2022-02-25 11:08:00 77 mm[Hg] Manny phen F Kris Weight Measured 2022-02-25 11:08:00 151.80 pounds Jaden F Kris Height Measured 2022-02-25 11:08:00 60.00 inches Jaden F Kris Body Temperature 2022-02-25 11:08:00 98.10 degrees Jaden F Kris Heart Rate 2022-02-25 11:08:00 95.00 /min Kinga en F Kris Respiratory Rate 2022-02-25 11:08:00 Jaden Serafin Ponce BP Systolic 2021-11-30 11:14:00 137 mm[Hg] Step hen Serafin Ponce BP Diastolic 2021-11-30 11:14:00 78 mm[Hg] Manny Ponce Weight Measured 2021-11-30 11:14:00 144.20 pounds Jaden Ponce Height Measured 2021-11-30 11:14:00 60.00 inches Jaden Ponce Body Temperature 2021-11-30 11:14:00 98.00 degrees Jaden Serafin Ponce Heart Rate 2021-11-30 11:14:00 84.00 /min Kinga en Serafin Ponce Respiratory Rate 2021-11-30 11:14:00 18.00 /min Jaden Ponce BP Systolic 2021-08-15 11:36:00 120 mm[Hg] BP [...] EXTERNAL PROVIDER RECORDS 2022-10-21 05:01:00 Doctor Unassigned, [place] [facility] RADIOLOGY DOCUMENTATION 2022-10-11 05:01:00 Doct or Unassigned, [place] [facility] MEDICAL RELEASE/CLEARANCE FORMS 2022-10-09 05:01:00 Doctor Unassigned, [place] [facility] Plan of Care Planned Activity Planned Date Details Comments Source Goal Plan of Care Note [code = 19331-9] Goal Plan of Care Note [code = 70499-4] Goal Plan of Care Note [code = 09748-6] Goal Plan of Care Note [code = 84745-6] Goal Plan of Care Note [code = 29097-9] Goal Plan of Care Note [code = 19161-7] Goal Plan of Care Note [code = 89905-7] Goal Plan of Care Note [code = 31513-4] Goal Plan of Care Note [code = 45631-9] Goal Plan of Care Note [code = 91187-3] Goal Plan of Care Note [code = 35440-8] Goal Plan of Care Note [code = 22174-6] Goal Plan of Care Note [code = 06895-5] Goal Plan of Care Note [code = 20884-3] Goal Plan of Care Note [code = 76149-9] Goal Plan of Care Note [code = 02933-5] Goal Plan of Care Note [code = 18102-3] Goal Plan of Care Note [code = 14488-8] Goal Plan of Care Note [code = 87264-3] Goal Plan of Care Note [code = 64989-9] Goal Plan of Care Note [code = 41705-9] Goal Plan of Care Note [code = 84225-5] Goal Plan of Care Note [code = 66900-1] Goal Plan of Care Note [code = 34838-9] Goal Plan of Care Note [code = 76476-7] Goal Plan of Care Note [code = 66773-7] Goal Plan of Care Note [code = 35109-8] Goal Plan of Care Note [code = 02502-1] Goal Plan of Care Note [code = 04124-6] Goal Plan of Care Note [code = 34706-0] Goal Plan of Care Note [code = 51203-0] Goal Plan of Care Note [code = 82033-0] Goal Plan of Care Note [code = 47945-9] Goal Plan of Care Note [code = 65353-4] Goal Plan of Care Note [code = 10075-9] Goal Plan of Care Note [code = 14158-7] Goal Plan of Care Note [code = 99171-5] Goal Plan of Care Note [code = 32919-9] Goal Plan of Care Note [code = 33177-9] Goal Plan of Care Note [code = 69488-3] Goal Plan of Care Note [code = 59991-7] Goal Plan of Care Note [code = 51688-6] Goal Plan of Care Note [code = 80006-6] Goal Plan of Care Note [code = 33945-5] Goal Plan of Care Note [code = 22787-2] Goal Plan of Care Note [code = 81510-3] Goal Plan of Care Note [code = 05977-3] Goal Plan of Care Note [code = 59563-2] Goal Plan of Care Note [code = 66428-3] Goal Plan of Care Note [code = 26859-5] Goal Plan of Care Note [code = 85343-7] Goal Plan of Care Note [code = 75963-8] Goal Plan of Care Note [code = 25444-6] Goal Plan of Care Note [code = 04644-0] Goal Plan of Care Note [code = 09673-9] Goal Plan of Care Note [code = 79046-2] Goal Plan of Care Note [code = 22281-8] Goal Plan of Care Note [code = 28652-1] Goal Plan of Care Note [code = 92824-4] Goal Plan of Care Note [code = 24693-2] Goal Plan of Care Note [code = 01459-4] Goal Plan of Care Note [code = 35149-3] Goal Plan of Care Note [code = 70724-0] Goal Plan of Care Note [code = 48854-7] Goal Plan of Care Note [code = 22152-7] Goal Plan of Care Note [code = 97460-8] Goal Plan of Care Note [code = 61428-4] Goal Plan of Care Note [code = 75382-6] Goal Plan of Care Note [code = 58747-2] Goal Plan of Care Note [code = 72829-9] Goal Plan of Care Note [code = 74460-5] Goal Plan of Care Note [code = 12857-0] Goal Plan of Care Note [code = 79170-5] Goal Plan of Care Note [code = 83146-8] Goal Plan of Care Note [code = 62992-7] Goal Plan of Care Note [code = 15821-0] Goal Plan of Care Note [code = 71533-2] Goal Plan of Care Note [code = 72384-3] Goal Plan of Care Note [code = 47642-4] Goal Plan of Care Note [code = 32463-3] Goal Plan of Care Note [code = 24389-7] Goal Plan of Care Note [code = 61668-2] Goal Plan of Care Note [code = 65835-3] Encounters Start Date/Time End Date/Time Encounter Type Admission Type Attending [facility] Facility Care Department Encounter ID Source 2024-03-16 16:43:16 2024-03-16 16:43:16 Outpatient [facility] [id number] Jaden F Kris 2024-02-25 10:41:50 2024-02-25 10:41:50 Outpatient [facility] [id number] Jaden Betancourt Kris 2024-02-25 00:00:00 2024-02-25 00:00:00 Outpatient Visit [facility] [id number] Jaden Betancourt Kris 2024-02-06 13:53:09 2024-02-06 13:53:09 Outpatient SFA [facility] [id number] Jaden Betancourt Kris 2024-02-06 00:00:00 2024-02-06 00:00:00 Outpatient Visit SFA [id number] Jaden Ponce 2024-01-15 15:58:11 2024-01-15 15:58:11 Outpatient SFA [facility] [id number] Jaden Ponce 2023-12-15 08:41:47 2023-12-15 08:41:47 Outpatient SFA [facility] [id number] Jaden Betancourt Kris 2023-11-13 00:00:00 2023-11-13 00:00:00 Outpatient Visit SFA [id number] Jaden Betancourt Kris 2023-11-10 14:10:07 2023-11-10 14:10:07 Outpatient SFA [facility] [id number] Jaden Betancourt Kris 2023-10-14 15:51:09 2023-10-14 15:51:09 Outpatient SFA [facility] [id number] Jaden Betancourt [place] 2023-09-15 16:15:18 2023-09-15 16:15:18 Outpatient SFA SFA [id number] Jaden Betancourt [place] 2023-08-26 15:52:22 2023-08-26 15:52:22 Outpatient SFA SFA 9 Jaden Betancourt [place] 2023-08-14 09:36:17 2023-08-14 09:36:17 Outpatient SFA [facility] [id number] Jaden Betancourt [place] 2023-07-14 14:28:32 2023-07-14 14:28:32 Outpatient SFA SFA [id number] Jaden Betancourt [place] 2023-06-18 10:02:18 2023-06-18 10:02:18 Outpatient SFA SFA [id number] Jaden Betancourt [place] 2023-06-17 17:18:38 2023-06-17 17:18:38 Outpatient SFA SFA [id number] Jaden Betancourt [place] 2023-06-12 15:47:52 2023-06-12 15:47:52 Outpatient SFA SFA [id number] Jaden Betancourt [place] 2023-04-28 14:22:48 2023-04-28 14:22:48 Outpatient SFA [facility]FA [id number] Jaden Betancourt Kris 2023-03-19 16:04:06 2023-03-19 16:04:06 Outpatient [facility] [id number] Jaden Ponce 2023-02-27 13:54:38 2023-02-27 13:54:38 Outpatient [facility] [id number] Jaden Ponce 2023-02-18 14:41:08 2023-02-18 14:41:08 Outpatient [facility] [id number] Jaden Betancourt [place] 2023-01-30 17:52:20 2023-01-30 17:52:20 Outpatient [facility] [id number] Jaden Betancourt [place] 2023-01-14 12:11:29 2023-01-14 12:11:29 Outpatient [facility] [id number] Jaden Betancourt [place] 2022-12-11 17:36:37 2022-12-11 17:36:37 Outpatient [facility] [id number] Jaden Betancourt [place] 2022-10-21 00:00:00 2022-10-21 00:00:00 Orders Only Doctor Unassigned, [place] [address]114 350.1.13.10 4.2.7.2.686 [id number] [facility] 2022-10-15 00:00:00 2022-10-15 00:00:00 Telephone Maegan Head [facility] 1.2.840.114 350.1.13.10 4.2.7.2.686 [id number] [facility] 2022-10-11 00:00:00 2022-10-11 00:00:00 Orders Only Doctor Unassigned, [place] [id number] 350.1.13.10 4.2.7.2.686 [id number] [facility] 2022-10-11 00:00:00 2022-10-11 00:00:00 Telephone Maegan Head [facility] 1.0.114 350.1.13.10 4.2.7.2.686 [id number] [facility] 2022-10-09 00:00:00 2022-10-09 00:00:00 Orders Only Doctor Unassigned, [place] [facility] 1.840.114 350.1.13.10 4.2.7.2.686 [id number] [facility] 2022-10-09 00:00:00 2022-10-09 00:00:00 Telephone Maegan Head [facility] 1..114 350.1.13.10 4.2.7.2.686 [id number] [facility] 2022-10-07 14:30:00 2022-10-07 16:47:40 Outpatient R MAEGAN HEAD [facility] [id number] [facility] 2022-10-07 14:30:00 2022-10-07 16:47:40 Office Visit Maegan Head [facility] 1.0.114 350.1.13.10 4.2.7.2.686 [id number] [facility] 2022-10-07 00:00:00 2022-10-07 00:00:00 Telephone Maegan Head [facility] 1.0.114 350.1.13.10 4.2.7.2.686 [id number] [facility] 2022-10-02 00:00:00 2022-10-02 00:00:00 Telephone Maegan Head [facility] 1.0.114 350.1.13.10 4.2.7.2.686 [id number] [facility] 2022-08-20 13:43:24 2022-08-20 13:43:24 Outpatient [facility] [id number] Jaden Ponce 2022-05-29 14:07:16 2022-05-29 14:07:16 Outpatient SFA [facility] [id number] Jaden Ponce 2022-04-30 15:19:29 2022-04-30 15:19:29 Outpatient [facility] [id number] Jaden Ponce 2022-04-30 00:00:00 2022-04-30 00:00:00 Outpatient Visit [id number] 2022-03-27 00:00:00 2022-03-27 00:00:00 Outpatient DMG DMG [id number] [facility] 2022-03-26 09:54:48 2022-03-26 09:54:48 Outpatient [facility]FA [facility] [id number] Jaden Ponce 2022-03-26 00:00:00 2022-03-26 00:00:00 Outpatient Visit [id number] 2022-02-25 11:04:30 2022-02-25 11:04:30 Outpatient SFA SFA 1010 Jaden Ponce 2022-02-25 00:00:00 2022-02-25 00:00:00 Outpatient Visit [id number] 2021-11-30 00:00:00 2021-11-30 00:00:00 Outpatient Visit [id number] [id number] 2021-11-27 04:42:00 2021-11-27 04:42:00 Outpatient [facility] [id number] Qian arrington [facility] h Program Results Test Description Test Time Test Comments Results Result Co mments Source TSH, THIRD [id number] 07:15:39* Test Item Value Reference Range Interpretation Comme nts TSH, THIRD GENERATION (test code = 2821) 0.265 UIU/ML 0.400-4.100 L C-REACTIVE [id number] 05:45:48* Test Item Value Reference Range Interpretation Comme nts C-REACTIVE PROTEIN (test cod e = 3513) <0.3 MG/DL <0.5 COMPREHENSIVE METABOLIC [id number] 05:45:07* Test Item Value Reference Range Interpretation Comme nts GLUCOSE (test code = 2217) 178 MG/DL 70-99 H BUN (test code = 2208) 15 MG/DL 8-23 CREATININE (test code = 2214) 0.47 MG/DL 0.60-1.30 L eGFR (2020 CKD-EPI) (test code = 72684) 104 ML/MIN/1.73 >60 CALC BUN/CREAT (test code [...] code = 2219) 17 U/L 5-40 HEMOGLOBIN [id number] 04:57:52* Test Item Value Reference Range Interpretation Comme nts HEMOGLOBIN A1c (test code = 90841) 5.8 % 4.2-5.6 H [employer] GUIDELINES FOR HGB A1C: [...] CONSIDER ALTERNATE TESTING OR LABORATORY CONSULTATION. SEDIMENTATION [id number] 04:22:25* Test Item Value Reference Range Interpretation Comme nts SEDIMENTATION RATE (test cod e = 1017) 2 MM/HOUR 0-20 CBC W/AUTO DIFF WITH [id number] 02:36:55* Test Item Value Reference Range Interpretation [...] = 1065) 0.0 /100 WBC'S See_Comment [Automated [employer] ge] The system which generated this result [...] H ABS NUCLEATED RBCS (test code = 98135) 0.00 K/UL 0.00-0.11 HEMOGLOBIN [id number] 00:00:00* Test Item Value Reference Range Interpretation Comme nts HEMOGLOBIN A1c (test code = 34652) 5.8 % Jaden F KrisCOMPREHENSIVE METABOLIC [id number] 00:00:00* Test Item Value Reference Range Interpretation Comme nts GLUCOSE (test code = 2217) 178 MG/DL BUN (test code = 2208) 15 MG/DL CREATININE (test code = 2214) 0.47 MG/DL eGFR (2020 CKD-EPI) (test code = 95653) 104 ML/MIN/1.73 CALC BUN/CREAT (test code = 2235) 32 RATIO SODIUM (test code = 2231) 138 MEQ/L POTASSIUM (test code = 2228) 3.7 MEQ/L CHLORIDE (test code = 2215) 100 MEQ/L CARBON DIOXIDE (test code = 2206) 24 MEQ/L CALCIUM (test code = 2209) 9.0 MG/DL PROTEIN, TOTAL (test code = 2229) 6.4 G/DL ALBUMIN (test code = 2201) 4.3 G/DL CALC GLOBULIN (test code = 2240) 2.1 G/DL CALC A/G RATIO (test code = 2234) 2.0 RATIO BILIRUBIN, TOTAL (test code = 2207) 0.3 MG/DL ALKALINE PHOSPHATASE (test code = 2204) 118 U/L AST (test code = 2218) 10 U/L ALT (test code = 2219) 17 U/L Jaden May, THIRD [id number] 00:00:00* Test Item Value Reference Range Interpretation Comme nts TSH, THIRD GENERATION (test code = 2821) 0.265 UIU/ML Jaden PonceSEDIMENTATION [id number] 00:00:00* Test Item Value Reference Range Interpretation Comme nts SEDIMENTATION RATE (test cod e = 1017) 2 MM/HOUR Jaden PonceC-REACTIVE [id number] 00:00:00* Test Item Value Reference Range Interpretation Comme nts C-REACTIVE PROTEIN (test cod e = 3513) <0.3 MG/DL Jaden PonceVITAMIN D, 25 [id number] 00:00:00* Test Item Value Reference Range Interpretation Comme nts VITAMIN D, 25 OH (test code = 4958) 34 NG/ML Jaden PonceCBC W/AUTO [id number] 00:00:00* Test Item Value Reference Range Interpretation Comme nts WBC (test code = 1001) 9.6 K/UL RBC (test code = 1002) 4.74 M/UL HEMOGLOBIN (test code = 1003) 15.2 G/DL HEMATOCRIT (test code = 1004) 44.9 % MCV (test code = 1005) 94.7 fL MCH (test code = 1006) 32.1 PG MCHC (test code = 1007) 33.9 G/DL RDW (test code = 1038) 13.5 % NEUTROPHILS (test code = 1008) 82.9 % LYMPHOCYTES (test code = 1010) 11.5 % MONOCYTES (test code = 1011) 3.4 % EOSINOPHILS (test code = 1012) 0.1 % BASOPHILS (test code = 1013) 0.6 % IMMATURE GRANULOCYTES (test code = 1036) 1.5 % NUCLEATED RBCS (test code = 1065) 0.0 /100WBC'S PLATELET COUNT (test code = 1015) 296 K/UL ABSOLUTE NEUTROPHILS (test c ode = 1066) 7.98 K/UL ABSOLUTE LYMPHOCYTES (test c ode = 1067) 1.11 K/UL ABSOLUTE MONOCYTES (test cod e = 1068) 0.33 K/UL ABSOLUTE EOSINOPHILS (test c ode = 1040) 0.01 K/UL ABSOLUTE BASOPHILS (test cod e = 1069) 0.06 K/UL ABS IMMATURE GRANULOCYTES (t est code = 1020) 0.14 K/UL ABS NUCLEATED RBCS (test cod e = 05514) 0.00 K/UL Jaden PonceHEMOGLOBIN [id number] 00:00:00* Test Item Value Reference Range Interpretation Comme nts HEMOGLOBIN A1c (test code = 39548) 5.8 % Jaden PonceCOMPREHENSIVE METABOLIC [id number] 00:00:00* Test Item Value Reference Range Interpretation Comme nts GLUCOSE (test code = 2217) 178 MG/DL BUN (test code = 2208) 15 MG/DL CREATININE (test code = 2214) 0.47 MG/DL eGFR (2020 CKD-EPI) (test code = 34214) 104 ML/MIN/1.73 CALC BUN/CREAT (test code = 2235) 32 RATIO SODIUM (test code = 2231) 138 MEQ/L POTASSIUM (test code = 2228) 3.7 MEQ/L CHLORIDE (test code = 2215) 100 MEQ/L CARBON DIOXIDE (test code = 2206) 24 MEQ/L CALCIUM (test code = 2209) 9.0 MG/DL PROTEIN, TOTAL (test code = 2229) 6.4 G/DL ALBUMIN (test code = 2201) 4.3 G/DL CALC GLOBULIN (test code = 2240) 2.1 G/DL CALC A/G RATIO (test code = 2234) 2.0 RATIO BILIRUBIN, TOTAL (test code = 2207) 0.3 MG/DL ALKALINE PHOSPHATASE (test code = 2204) 118 U/L AST (test code = 2218) 10 U/L ALT (test code = 2219) 17 U/L Jaden PonceTSH, THIRD [id number] 00:00:00* Test Item Value Reference Range Interpretation Comme nts TSH, THIRD GENERATION (test code = 2821) 0.265 UIU/ML Jaden PonceSEDIMENTATION [id number] 00:00:00* Test Item Value Reference Range Interpretation Comme nts SEDIMENTATION RATE (test cod e = 1017) 2 MM/HOUR Jaden PonceC-REACTIVE [id number] 00:00:00* Test Item Value Reference Range Interpretation Comme nts C-REACTIVE PROTEIN (test cod e = 3513) <0.3 MG/DL Jaden PonceVITAMIN D, 25 [id number] 00:00:00* Test Item Value Reference Range Interpretation Comme adrián VITAMIN D, 25 OH (test code = 4958) 34 NG/ML Jaden PonceCBC W/AUTO [id number] 00:00:00* Test Item Value Reference Range Interpretation Comme nts WBC (test code = 1001) 9.6 K/UL RBC (test code = 1002) 4.74 M/UL HEMOGLOBIN (test code = 1003) 15.2 G/DL HEMATOCRIT (test code = 1004) 44.9 % MCV (test code = 1005) 94.7 fL MCH (test code = 1006) 32.1 PG MCHC (test code = 1007) 33.9 G/DL RDW (test code = 1038) 13.5 % NEUTROPHILS (test code = 1008) 82.9 % LYMPHOCYTES (test code = 1010) 11.5 % MONOCYTES (test code = 1011) 3.4 % EOSINOPHILS (test code = 1012) 0.1 % BASOPHILS (test code = 1013) 0.6 % IMMATURE GRANULOCYTES (test code = 1036) 1.5 % NUCLEATED RBCS (test code = 1065) 0.0 /100WBC'S PLATELET COUNT (test code = 1015) 296 K/UL ABSOLUTE NEUTROPHILS (test c ode = 1066) 7.98 K/UL ABSOLUTE LYMPHOCYTES (test c ode = 1067) 1.11 K/UL ABSOLUTE MONOCYTES (test cod e = 1068) 0.33 K/UL ABSOLUTE EOSINOPHILS (test c ode = 1040) 0.01 K/UL ABSOLUTE BASOPHILS (test cod e = 1069) 0.06 K/UL ABS IMMATURE GRANULOCYTES (t est code = 1020) 0.14 K/UL ABS NUCLEATED RBCS (test cod e = 39667) 0.00 K/UL Jaden PonceHEMOGLOBIN [id number] 00:00:00* Test Item Value Reference Range Interpretation Comme adrián HEMOGLOBIN A1c (test code = 79575) 5.8 % Jaden PonceCOMPREHENSIVE METABOLIC [id number] 00:00:00* Test Item Value Reference Range Interpretation Comme nts GLUCOSE (test code = 7) 178 MG/DL BUN (test code = 8) 15 MG/DL CREATININE (test code = 2214) 0.47 MG/DL eGFR (2020 CKD-EPI) (test code = 74005) 104 ML/MIN/1.73 CALC BUN/CREAT (test code = 2235) 32 RATIO SODIUM (test code = 2231) 138 MEQ/L POTASSIUM (test code = 2228) 3.7 MEQ/L CHLORIDE (test code = 2215) 100 MEQ/L CARBON DIOXIDE (test code = 2206) 24 MEQ/L CALCIUM (test code = 2209) 9.0 MG/DL PROTEIN, TOTAL (test code = 2228) 6.4 G/DL ALBUMIN (test code = 220) 4.3 G/DL CALC GLOBULIN (test code = 2240) 2.1 G/DL CALC A/G RATIO (test code = 223) 2.0 RATIO BILIRUBIN, TOTAL (test code = 7) 0.3 MG/DL ALKALINE PHOSPHATASE (test code = 2203) 118 U/L AST (test code = 2218) 10 U/L ALT (test code = 2219) 17 U/L Jaden PonceTSH, THIRD [id number] 00:00:00* Test Item Value Reference Range Interpretation Comme nts TSH, THIRD GENERATION (test code = 2821) 0.265 UIU/ML Jaden PonceSEDIMENTATION [id number] 00:00:00* Test Item Value Reference Range Interpretation Comme nts SEDIMENTATION RATE (test cod e = 1017) 2 MM/HOUR Jaden PonceC-REACTIVE [id number] 00:00:00* Test Item Value Reference Range Interpretation Comme nts C-REACTIVE PROTEIN (test cod e = 3513) <0.3 MG/DL Jaden PonceVITAMIN D, 25 [id number] 00:00:00* Test Item Value Reference Range Interpretation Comme nts VITAMIN D, 25 OH (test code = 4958) 34 NG/ML Jaden PonceCBC W/AUTO [id number] 00:00:00* Test Item Value Reference Range Interpretation Comme nts WBC (test code = 1001) 9.6 K/UL RBC (test code = 1002) 4.74 M/UL HEMOGLOBIN (test code = 1003) 15.2 G/DL HEMATOCRIT (test code = 1004) 44.9 % MCV (test code = 1005) 94.7 fL MCH (test code = 1006) 32.1 PG MCHC (test code = 1007) 33.9 G/DL RDW (test code = 1038) 13.5 % NEUTROPHILS (test code = 1008) 82.9 % LYMPHOCYTES (test code = 1010) 11.5 % MONOCYTES (test code = 1011) 3.4 % EOSINOPHILS (test code = 1012) 0.1 % BASOPHILS (test code = 1013) 0.6 % IMMATURE GRANULOCYTES (test code = 1036) 1.5 % NUCLEATED RBCS (test code = 1065) 0.0 /100WBC'S PLATELET COUNT (test code = 1015) 296 K/UL ABSOLUTE NEUTROPHILS (test c ode = 1066) 7.98 K/UL ABSOLUTE LYMPHOCYTES (test c ode = 1067) 1.11 K/UL ABSOLUTE MONOCYTES (test cod e = 1068) 0.33 K/UL ABSOLUTE EOSINOPHILS (test c ode = 1040) 0.01 K/UL ABSOLUTE BASOPHILS (test cod e = 1069) 0.06 K/UL ABS IMMATURE GRANULOCYTES (t est code = 1020) 0.14 K/UL ABS NUCLEATED RBCS (test cod e = 88100) 0.00 K/UL Jaden Betancourt AustinLIPID [id number] 06:45:40* Test Item Value Reference Range Interpretation [...] SPECIMENS. FOR MOREINFORMATION, SEE CLIENT ANNOUNCEMENT AT [email or web address] /CalcLDL-[email or web address] RISK RATIO LDL/HDL (test code = 223) 1.58 RATIO <3.22 COMPREHENSIVE METABOLIC [id number] 06:45:40* Test Item Value Reference Range Interpretation Comme nts GLUCOSE (test code = 7) 185 MG/DL 70-99 H BUN (test code = 2207) 10 MG/DL 8-23 CREATININE (test code = 2213) 0.55 MG/DL 0.60-1.30 L eGFR (2020 CKD-EPI) (test code = 93638) 101 ML/MIN/1.73 >60 CALC BUN/CREAT (test code = 5) 18 RATIO 6-28 SODIUM (test code = 2230) 134 MEQ/L 133-146 POTASSIUM (test code = 2228) 3.5 MEQ/L 3.5-5.4 CHLORIDE (test code = 5) 94 MEQ/L 95-107 L CARBON DIOXIDE (test code = 2205) 23 MEQ/L 19-31 CALCIUM (test code = [...] (test code = 2219) 17 U/L 5-40 [facility] has impo rtant pathology staff changes effective 07/17/2022. New pathology staff will provide uninterrupted, excellent patient care and clinical consultation. See URL: [email or web address] hospitalGeniusCo-op National [facility] [employer]/patho logy-team. UNLESS OTHERWISE INDICATED, ALL TESTING PERFORMED AT [facility] [address] [place] [id number] COMPOUNDING ASSISTANT: JOEY SILVA M.D. IA NUMBER [id number] [facility]. [id number] HEMOGLOBIN [id number] 03:45:25* Test Item Value Reference Range Interpretation Comme nts HEMOGLOBIN A1c (test code = 05639) 6.1 % 4.2-5.6 H [employer] GUIDELINES FOR HGB A1C: [...] OR LABORATORY CONSULTATION. CBC W/AUTO DIFF WITH [id number] 02:39:50* Test Item Value Reference Range Interpretation [...] = 1065) 0.0 /100 WBC'S See_Comment [Automated [employer]] The system which generated this result [...] H ABS NUCLEATED RBCS (test code = 15480) 0.00 K/UL 0.00-0.11 HEMOGLOBIN [id number] 00:00:00* Test Item Value Reference Range Interpretation Comme nts HEMOGLOBIN A1c (test code = 00115) 6.1 % Jaden PonceLIPID [id number] 00:00:00* Test Item Value Reference Range Interpretation Comme nts CHOLESTEROL (test code = 2210) 219 MG/DL TRIGLYCERIDES (test code = 2232) 85 MG/DL HDL CHOLESTEROL (test code = 2220) 78 MG/DL CALC LDL CHOL (test code = 2237) 123 MG/DL RISK RATIO LDL/HDL (test cod e = 2238) 1.58 RATIO Jaden Betancourt KrisCOMPREHENSIVE METABOLIC [id number] 00:00:00* Test Item Value Reference Range Interpretation Comme nts GLUCOSE (test code = 2217) 185 MG/DL BUN (test code = 2208) 10 MG/DL CREATININE (test code = 2214) 0.55 MG/DL eGFR (2020 CKD-EPI) (test code = 21371) 101 ML/MIN/1.73 CALC BUN/CREAT (test code = 2235) 18 RATIO SODIUM (test code = 2231) 134 MEQ/L POTASSIUM (test code = 2228) 3.5 MEQ/L CHLORIDE (test code = 2215) 94 MEQ/L CARBON DIOXIDE (test code = 2206) 23 MEQ/L CALCIUM (test code = 2209) 10.0 MG/DL PROTEIN, TOTAL (test code = 2229) 7.2 G/DL ALBUMIN (test code = 2201) 4.8 G/DL CALC GLOBULIN (test code = 2240) 2.4 G/DL CALC A/G RATIO (test code = 2234) 2.0 RATIO BILIRUBIN, TOTAL (test code = 2207) 0.2 MG/DL ALKALINE PHOSPHATASE (test code = 2204) 101 U/L AST (test code = 2218) 15 U/L ALT (test code = 2219) 17 U/L Jaden PonceCBC W/AUTO [id number] 00:00:00* Test Item Value Reference Range Interpretation Comme nts WBC (test code = 1001) 9.6 K/UL RBC (test code = 1002) 4.83 M/UL HEMOGLOBIN (test code = 1003) 15.4 G/DL HEMATOCRIT (test code = 1004) 43.8 % MCV (test code = 1005) 90.7 fL MCH (test code = 1006) 31.9 PG MCHC (test code = 1007) 35.2 G/DL RDW (test code = 1038) 13.2 % NEUTROPHILS (test code = 1008) 81.8 % LYMPHOCYTES (test code = 1010) 13.9 % MONOCYTES (test code = 1011) 1.8 % EOSINOPHILS (test code = 1012) 0.0 % BASOPHILS (test code = 1013) 0.9 % IMMATURE GRANULOCYTES (test code = 1036) 1.6 % NUCLEATED RBCS (test code = 1065) 0.0 /100WBC'S PLATELET COUNT (test code = 1015) 302 K/UL ABSOLUTE NEUTROPHILS (test c ode = 1066) 7.85 K/UL ABSOLUTE LYMPHOCYTES (test c ode = 1067) 1.33 K/UL ABSOLUTE MONOCYTES (test cod e = 1068) 0.17 K/UL ABSOLUTE EOSINOPHILS (test c ode = 1040) 0.00 K/UL ABSOLUTE BASOPHILS (test cod e = 1069) 0.09 K/UL ABS IMMATURE GRANULOCYTES (t est code = 1020) 0.15 K/UL ABS NUCLEATED RBCS (test cod e = 62926) 0.00 K/UL Jaden PonceHEMOGLOBIN [id number] 00:00:00* Test Item Value Reference Range Interpretation Comme nts HEMOGLOBIN A1c (test code = 88767) 6.1 % Jaden PonceLIPID [id number] 00:00:00* Test Item Value Reference Range Interpretation Comme nts CHOLESTEROL (test code = 2210) 219 MG/DL TRIGLYCERIDES (test code = 2232) 85 MG/DL HDL CHOLESTEROL (test code = 2220) 78 MG/DL CALC LDL CHOL (test code = 2237) 123 MG/DL RISK RATIO LDL/HDL (test cod e = 2238) 1.58 RATIO Jaden PonceCOMPREHENSIVE METABOLIC [id number] 00:00:00* Test Item Value Reference Range Interpretation Comme nts GLUCOSE (test code = 2217) 185 MG/DL BUN (test code = 2208) 10 MG/DL CREATININE (test code = 2214) 0.55 MG/DL eGFR (2020 CKD-EPI) (test code = 97106) 101 ML/MIN/1.73 CALC BUN/CREAT (test code = 2235) 18 RATIO SODIUM (test code = 2231) 134 MEQ/L POTASSIUM (test code = 2228) 3.5 MEQ/L CHLORIDE (test code = 2215) 94 MEQ/L CARBON DIOXIDE (test code = 2206) 23 MEQ/L CALCIUM (test code = 2209) 10.0 MG/DL PROTEIN, TOTAL (test code = 2229) 7.2 G/DL ALBUMIN (test code = 2201) 4.8 G/DL CALC GLOBULIN (test code = 2240) 2.4 G/DL CALC A/G RATIO (test code = 2234) 2.0 RATIO BILIRUBIN, TOTAL (test code = 2207) 0.2 MG/DL ALKALINE PHOSPHATASE (test code = 2204) 101 U/L AST (test code = 2218) 15 U/L ALT (test code = 2219) 17 U/L Jaden PonceCBC W/AUTO [id number] 00:00:00* Test Item Value Reference Range Interpretation Comme nts WBC (test code = 1001) 9.6 K/UL RBC (test code = 1002) 4.83 M/UL HEMOGLOBIN (test code = 1003) 15.4 G/DL HEMATOCRIT (test code = 1004) 43.8 % MCV (test code = 1005) 90.7 fL MCH (test code = 1006) 31.9 PG MCHC (test code = 1007) 35.2 G/DL RDW (test code = 1038) 13.2 % NEUTROPHILS (test code = 1008) 81.8 % LYMPHOCYTES (test code = 1010) 13.9 % MONOCYTES (test code = 1011) 1.8 % EOSINOPHILS (test code = 1012) 0.0 % BASOPHILS (test code = 1013) 0.9 % IMMATURE GRANULOCYTES (test code = 1036) 1.6 % NUCLEATED RBCS (test code = 1065) 0.0 /100WBC'S PLATELET COUNT (test code = 1015) 302 K/UL ABSOLUTE NEUTROPHILS (test c ode = 1066) 7.85 K/UL ABSOLUTE LYMPHOCYTES (test c ode = 1067) 1.33 K/UL ABSOLUTE MONOCYTES (test cod e = 1068) 0.17 K/UL ABSOLUTE EOSINOPHILS (test c ode = 1040) 0.00 K/UL ABSOLUTE BASOPHILS (test cod e = 1069) 0.09 K/UL ABS IMMATURE GRANULOCYTES (t est code = 1020) 0.15 K/UL ABS NUCLEATED RBCS (test cod e = 04524) 0.00 K/UL Jaden PonceHEMOGLOBIN [id number] 00:00:00* Test Item Value Reference Range Interpretation Comme nts HEMOGLOBIN A1c (test code = 89551) 6.1 % Jaden PonceLIPID [id number] 00:00:00* Test Item Value Reference Range Interpretation Comme nts CHOLESTEROL (test code = 2210) 219 MG/DL TRIGLYCERIDES (test code = 2232) 85 MG/DL HDL CHOLESTEROL (test code = 2220) 78 MG/DL CALC LDL CHOL (test code = 2237) 123 MG/DL RISK RATIO LDL/HDL (test cod e = 2238) 1.58 RATIO Jaden PonceCOMPREHENSIVE METABOLIC [id number] 00:00:00* Test Item Value Reference Range Interpretation Comme nts GLUCOSE (test code = 2217) 185 MG/DL BUN (test code = 2208) 10 MG/DL CREATININE (test code = 2214) 0.55 MG/DL eGFR (2020 CKD-EPI) (test code = 64440) 101 ML/MIN/1.73 CALC BUN/CREAT (test code = 2235) 18 RATIO SODIUM (test code = 2231) 134 MEQ/L POTASSIUM (test code = 2228) 3.5 MEQ/L CHLORIDE (test code = 2215) 94 MEQ/L CARBON DIOXIDE (test code = 2206) 23 MEQ/L CALCIUM (test code = 2209) 10.0 MG/DL PROTEIN, TOTAL (test code = 2229) 7.2 G/DL ALBUMIN (test code = 2201) 4.8 G/DL CALC GLOBULIN (test code = 2240) 2.4 G/DL CALC A/G RATIO (test code = 2234) 2.0 RATIO BILIRUBIN, TOTAL (test code = 2207) 0.2 MG/DL ALKALINE PHOSPHATASE (test code = 2204) 101 U/L AST (test code = 2218) 15 U/L ALT (test code = 2219) 17 U/L Jaden PonceC W/AUTO [id number] 00:00:00* Test Item Value Reference Range Interpretation Comme nts WBC (test code = 1001) 9.6 K/UL RBC (test code = 1002) 4.83 M/UL HEMOGLOBIN (test code = 1003) 15.4 G/DL HEMATOCRIT (test code = 1004) 43.8 % MCV (test code = 1005) 90.7 fL MCH (test code = 1006) 31.9 PG MCHC (test code = 1007) 35.2 G/DL RDW (test code = 1038) 13.2 % NEUTROPHILS (test code = 1008) 81.8 % LYMPHOCYTES (test code = 1010) 13.9 % MONOCYTES (test code = 1011) 1.8 % EOSINOPHILS (test code = 1012) 0.0 % BASOPHILS (test code = 1013) 0.9 % IMMATURE GRANULOCYTES (test code = 1036) 1.6 % NUCLEATED RBCS (test code = 1065) 0.0 /100WBC'S PLATELET COUNT (test code = 1015) 302 K/UL ABSOLUTE NEUTROPHILS (test c ode = 1066) 7.85 K/UL ABSOLUTE LYMPHOCYTES (test c ode = 1067) 1.33 K/UL ABSOLUTE MONOCYTES (test cod e = 1068) 0.17 K/UL ABSOLUTE EOSINOPHILS (test c ode = 1040) 0.00 K/UL ABSOLUTE BASOPHILS (test cod e = 1069) 0.09 K/UL ABS IMMATURE GRANULOCYTES (t est code = 1020) 0.15 K/UL ABS NUCLEATED RBCS (test cod e = 56892) 0.00 K/UL Jaden F AustinOCCULT BLD,FECAL,IMMUNOASSAY [id number] 15:52:05* Test Item Value Reference Range Interpretation Comme nts OCCULT BLD, FECAL (test code = 26978) NEGATIVE NEGATIVE [facility] has important pathology staff changes effective 07/17/2022. New pathology staff will provide uninterrupted, excellent patient care and clinical consultation. See URL: [email or web address].[facility] hospitalGeniusCo-op [employer]/patholog y-team. UNLESS OTHERWISE INDICATED, ALL TESTING PERFORMED AT [facility] [address] [place] [address] CLIA: [id number], CAP: [id number] OCCULT BLD,FECAL,IMMUNOASSAY [id number] 00:00:00* Test Item Value Reference Range Interpretation Comme nts OCCULT BLD, FECAL (test code = 03698) NEGATIVE Jaden PonceOCCULT BLD,FECAL,IMMUNOASSAY [id number] 00:00:00* Test Item Value Reference Range Interpretation Comme nts OCCULT BLD, FECAL (test code = 25954) NEGATIVE Jaden PonceOCCULT BLD,FECAL,IMMUNOASSAY [id number] 00:00:00* Test Item Value Reference Range Interpretation Comme nts OCCULT BLD, FECAL (test code = 56416) NEGATIVE Jaden PonceTSH, THIRD [id number] 06:49:25* Test Item Value Reference Range Interpretation Comme adrián TSH, THIRD GENERATION (test code = 2821) 1.600 UIU/ML 0.400-4.100 [id number] 06:45:12* Test Item Value Reference Range Interpretation Comme nts NT-proBNP (test code = 49111) <50 PG/ML SEE BELOW If NT-ProBNP is less than 300 PG/ML, heart failure is unlikely for allages. Age.................Heart Failure Likely <50 Years...........>=450 PG/ML 50-75 Years.........>=900 PG/ML > 75 Years..........>=1800 PG/ML Methodology: Alyse Kimani Electrochemiluminescense Immunoassay UNLESS OTHERWISE INDICATED, ALL TESTING PERFORMED [facility] [address] [place] [address] COMPOUNDING ASSISTANT: ELIAS ESPANA M.D. CLIA NUMBER [id number] [facility] [place]. [id number] COMPREHENSIVE METABOLIC [id number] 04:56:47* Test Item Value Reference Range Interpretation Comme nts GLUCOSE (test code = 7) 137 MG/DL 70-99 H BUN (test code = 2207) 12 MG/DL 8-23 CREATININE (test code = 2213) 0.60 MG/DL 0.60-1.30 eGFR (2020 CKD-EPI) (test code = 90487) 99 ML/MIN/1.73 >60 CALC BUN/CREAT (test code = 5) 20 RATIO 6-28 SODIUM (test code = 223) 143 MEQ/L 133-146 POTASSIUM (test code = 2228) 4.3 MEQ/L 3.5-5.4 CHLORIDE (test code = 2215) 105 MEQ/L 95-107 CARBON DIOXIDE (test code = 6) 25 MEQ/L 19-31 CALCIUM (test code = 220) 9.6 MG/DL 8.5-10.5 PROTEIN, TOTAL (test code = 222) 6.8 G/DL 6.1-8.3 ALBUMIN (test code = 2201) 4.5 G/DL 3.5-5.2 CALC GLOBULIN (test code = 2240) 2.3 G/DL 1.9-3.7 CALC A/G RATIO (test code = 2234) 2.0 RATIO 1.0-2.6 BILIRUBIN, TOTAL (test code = 220) 0.2 MG/DL See_Comment [Automated me ssage] The system which generated this result transmitted reference range: <=1.2. The reference range was not used to interpret this result as normal/abnormal. ALKALINE PHOSPHATASE (test code = 2204) 128 U/L 40-142 AST (test code = 2218) 15 U/L 9-40 ALT (test code = 2219) 11 U/L 5-40 LIPID [id number] 04:56:47* Test Item Value Reference Range Interpretation Comme nts CHOLESTEROL (test code = 2210) 236 MG/DL <200 H TRIGLYCERIDES (test code = 2232) 274 MG/DL <150 H HDL CHOLESTEROL (test code = 2220) 54 MG/DL >39 CALC LDL CHOL (test code = 2237) 140 MG/DL <100 H NOTE: CALCULATED LDL IS BASED ON ADRIAN-JESUS METHOD WHICHINCLUDES ADJUSTABLE TRIGLYCERIDE:VLDL CHOLESTEROL RATIO.THIS FACTOR VARIES BY MEASURED TRIGLYCERIDE AND NON-HDLCHOLESTEROL CONCENTRATIONS WITH INCREASED CALCULATED LDL SEENIN HIGHER TRIGLYCERIDE OR LOWER NON-HDL SPECIMENS. FOR MOREINFORMATION, SEE CLIENT ANNOUNCEMENT AT [email or web address] RISK RATIO LDL/HDL (test code = 2238) 2.59 RATIO <3.22 HEMOGLOBIN [id number] 04:00:46* Test Item Value Reference Range Interpretation Comme nts HEMOGLOBIN A1c (test code = 22177) 5.9 % 4.2-5.6 H CBC W/AUTO DIFF WITH [id number] 02:37:32* Test Item Value Reference Range Interpretation [...] = 1065) 0.0 /100 WBC'S See_Comment [Automated [employer]] The system which generated this result [...] 0.00-0.10 ABS NUCLEATED RBCS (test code = 52828) 0.00 K/UL 0.00-0.11 CBC W/AUTO [id number] 00:00:00* Test Item Value Reference Range Interpretation [...] ABS NUCLEATED RBCS (test cod e = 78448) 0.00 K/UL Jaden F AustinCOMPREHENSIVE METABOLIC [id number] 00:00:00* Test Item Value Reference Range Interpretation Comme nts GLUCOSE (test code = 2217) 137 MG/DL BUN (test code = 2208) 12 MG/DL CREATININE (test code = 2214) 0.60 MG/DL eGFR (2020 CKD-EPI) (test co de = 25187) 99 ML/MIN/1.73 CALC BUN/CREAT (test code = [...] ALT (test code = 2219) 11 U/L Jaden PonceLIPID [id number] 00:00:00* Test Item Value Reference Range Interpretation Comme nts CHOLESTEROL (test code = 2210) 236 MG/DL TRIGLYCERIDES (test code = 2232) 274 MG/DL HDL CHOLESTEROL (test code = 2220) 54 MG/DL CALC LDL CHOL (test code = 2237) 140 MG/DL RISK RATIO LDL/HDL (test cod e = 2238) 2.59 RATIO Jaden PonceTSH, THIRD [id number] 00:00:00* Test Item Value Reference Range Interpretation Comme adrián TSH, THIRD GENERATION (test code = 2821) 1.600 UIU/ML Jaden PonceLfhwrdAO-[id number] 00:00:00* Test Item Value Reference Range Interpretation Comme nts NT-proBNP (test code = 12812) <50 PG/ML Jaden PonceHEMOGLOBIN [id number] 00:00:00* Test Item Value Reference Range Interpretation Comme nts HEMOGLOBIN A1c (test code = 52246) 5.9 % Jaden PonceCBC W/AUTO [id number] 00:00:00* Test Item Value Reference Range Interpretation [...] ABS NUCLEATED RBCS (test cod e = 22871) 0.00 K/UL Jaden PonceCOMPREHENSIVE METABOLIC [id number] 00:00:00* Test Item Value Reference Range Interpretation Comme nts GLUCOSE (test code = 2217) 137 MG/DL BUN (test code = 2208) 12 MG/DL CREATININE (test code = 2214) 0.60 MG/DL eGFR (2020 CKD-EPI) (test co de = 51504) 99 ML/MIN/1.73 CALC BUN/CREAT (test code = [...] ALT (test code = 2219) 11 U/L Jaden PonceLIPID [id number] 00:00:00* Test Item Value Reference Range Interpretation Comme nts CHOLESTEROL (test code = 2210) 236 MG/DL TRIGLYCERIDES (test code = 2232) 274 MG/DL HDL CHOLESTEROL (test code = 2220) 54 MG/DL CALC LDL CHOL (test code = 2237) 140 MG/DL RISK RATIO LDL/HDL (test cod e = 2238) 2.59 RATIO Jaden PonceTSH, THIRD [id number] 00:00:00* Test Item Value Reference Range Interpretation Comme adrián TSH, THIRD GENERATION (test code = 2821) 1.600 UIU/ML Jaden PonceRedfvfTO-[id number] 00:00:00* Test Item Value Reference Range Interpretation Comme nts NT-proBNP (test code = 42718) <50 PG/ML Jaden PonceHEMOGLOBIN [id number] 00:00:00* Test Item Value Reference Range Interpretation Comme nts HEMOGLOBIN A1c (test code = 34039) 5.9 % Jaden PonceCBC W/AUTO [id number] 00:00:00* Test Item Value Reference Range Interpretation [...] ABS NUCLEATED RBCS (test cod e = 84919) 0.00 K/UL Jaden PonceCOMPREHENSIVE METABOLIC [id number] 00:00:00* Test Item Value Reference Range Interpretation Comme nts GLUCOSE (test code = 2217) 137 MG/DL BUN (test code = 2208) 12 MG/DL CREATININE (test code = 2214) 0.60 MG/DL eGFR (2020 CKD-EPI) (test co de = 48140) 99 ML/MIN/1.73 CALC BUN/CREAT (test code = [...] ALT (test code = 2219) 11 U/L Jaden PonceLIPID [id number] 00:00:00* Test Item Value Reference Range Interpretation Comme nts CHOLESTEROL (test code = 2210) 236 MG/DL TRIGLYCERIDES (test code = 2232) 274 MG/DL HDL CHOLESTEROL (test code = 2220) 54 MG/DL CALC LDL CHOL (test code = 2237) 140 MG/DL RISK RATIO LDL/HDL (test cod e = 2238) 2.59 RATIO Jaden PonceTSH, THIRD [id number] 00:00:00* Test Item Value Reference Range Interpretation Comme adrián TSH, THIRD GENERATION (test code = 2821) 1.600 UIU/ML Jaden PonceVczeyeOR-[id number] 00:00:00* Test Item Value Reference Range Interpretation Comme adrián NT-proBNP (test code = 55604) <50 PG/ML Jaden PonceHEMOGLOBIN [id number] 00:00:00* Test Item Value Reference Range Interpretation Comme nts HEMOGLOBIN A1c (test code = 76652) 5.9 % Jaden PonceHEMOGLOBIN [id number] 00:00:00* Test Item Value Reference Range Interpretation Comme adrián HEMOGLOBIN A1c (test code = 97748) 5.9 % CBC W/AUTO [id number] 00:00:00* Test Item Value Reference Range Interpretation [...] ABS NUCLEATED RBCS (test cod e = 60284) 0.00 K/UL COMPREHENSIVE METABOLIC [id number] 00:00:00* Test Item Value Reference Range Interpretation Comme nts GLUCOSE (test code = 2217) 137 MG/DL BUN (test code = 2208) 12 MG/DL CREATININE (test code = 2214) 0.60 MG/DL eGFR (2020 CKD-EPI) (test co de = 15901) 99 ML/MIN/1.73 CALC BUN/CREAT (test code = [...] (test code = 2219) 11 U/L LIPID [id number] 00:00:00* Test Item Value Reference Range Interpretation Comme nts CHOLESTEROL (test code = 2210) 236 MG/DL TRIGLYCERIDES (test code = 2232) 274 MG/DL HDL CHOLESTEROL (test code = 2220) 54 MG/DL CALC LDL CHOL (test code = 2237) 140 MG/DL RISK RATIO LDL/HDL (test cod e = 2238) 2.59 RATIO TSH, THIRD [id number] 00:00:00* Test Item Value Reference Range Interpretation Comme nts TSH, THIRD GENERATION (test code = 2821) 1.600 UIU/ML [id number] 00:00:00* Test Item Value Reference Range Interpretation Comme nts NT-proBNP (test code = 29980) <50 PG/ML HEMOGLOBIN [id number] 00:00:00* Test Item Value Reference Range Interpretation Comme nts HEMOGLOBIN A1c (test code = 20988) 5.9 % CBC W/AUTO [id number] 00:00:00* Test Item Value Reference Range Interpretation [...] ABS NUCLEATED RBCS (test cod e = 55012) 0.00 K/UL COMPREHENSIVE METABOLIC [id number] 00:00:00* Test Item Value Reference Range Interpretation Comme nts GLUCOSE (test code = 2217) 137 MG/DL BUN (test code = 2208) 12 MG/DL CREATININE (test code = 2214) 0.60 MG/DL eGFR (2020 CKD-EPI) (test co de = 12140) 99 ML/MIN/1.73 CALC BUN/CREAT (test code = 2235) 20 RATIO SODIUM (test code = 223) 143 MEQ/L POTASSIUM (test code = 2228) 4.3 MEQ/L CHLORIDE (test code = 2215) 105 MEQ/L CARBON DIOXIDE (test code = 2206) 25 MEQ/L CALCIUM (test code = 2209) 9.6 MG/DL PROTEIN, TOTAL (test code = 222) 6.8 G/DL ALBUMIN (test code = 2201) 4.5 G/DL CALC GLOBULIN (test code = 2240) 2.3 G/DL CALC A/G RATIO (test code = 2234) 2.0 RATIO BILIRUBIN, TOTAL (test code = 2207) 0.2 MG/DL ALKALINE PHOSPHATASE (test code = 2204) 128 U/L AST (test code = 2218) 15 U/L ALT (test code = 2219) 11 U/L LIPID [id number] 00:00:00* Test Item Value Reference Range Interpretation Comme nts CHOLESTEROL (test code = 2210) 236 MG/DL TRIGLYCERIDES (test code = 2232) 274 MG/DL HDL CHOLESTEROL (test code = 2220) 54 MG/DL CALC LDL CHOL (test code = 2237) 140 MG/DL RISK RATIO LDL/HDL (test cod e = 2238) 2.59 RATIO TSH, THIRD [id number] 00:00:00* Test Item Value Reference Range Interpretation Comme nts TSH, THIRD GENERATION (test code = 2821) 1.600 UIU/ML [id number] 00:00:00* Test Item Value Reference Range Interpretation Comme nts NT-proBNP (test code = 35757) <50 PG/ML HEMOGLOBIN [id number] 00:00:00* Test Item Value Reference Range Interpretation Comme nts HEMOGLOBIN A1c (test code = 81905) 5.9 % CBC W/AUTO [id number] 00:00:00* Test Item Value Reference Range Interpretation [...] ABS NUCLEATED RBCS (test cod e = 33125) 0.00 K/UL COMPREHENSIVE METABOLIC [id number] 00:00:00* Test Item Value Reference Range Interpretation Comme nts GLUCOSE (test code = 2217) 137 MG/DL BUN (test code = 2208) 12 MG/DL CREATININE (test code = 2214) 0.60 MG/DL eGFR (2020 CKD-EPI) (test co de = 34510) 99 ML/MIN/1.73 CALC BUN/CREAT (test code = [...] (test code = 2219) 11 U/L LIPID [id number] 00:00:00* Test Item Value Reference Range Interpretation Comme nts CHOLESTEROL (test code = 2210) 236 MG/DL TRIGLYCERIDES (test code = 2232) 274 MG/DL HDL CHOLESTEROL (test code = 2220) 54 MG/DL CALC LDL CHOL (test code = 2237) 140 MG/DL RISK RATIO LDL/HDL (test cod e = 2238) 2.59 RATIO TSH, THIRD [id number] 00:00:00* Test Item Value Reference Range Interpretation Comme nts TSH, THIRD GENERATION (test code = 2821) 1.600 UIU/ML [id number] 00:00:00* Test Item Value Reference Range Interpretation Comme nts NT-proBNP (test code = 84414) <50 PG/ML HEMOGLOBIN [id number] 00:00:00* Test Item Value Reference Range Interpretation Comme nts HEMOGLOBIN A1c (test code = 48640) 5.9 % CBC W/AUTO [id number] 00:00:00* Test Item Value Reference Range Interpretation [...] ABS NUCLEATED RBCS (test cod e = 32043) 0.00 K/UL COMPREHENSIVE METABOLIC [id number] 00:00:00* Test Item Value Reference Range Interpretation Comme nts GLUCOSE (test code = 2217) 137 MG/DL BUN (test code = 2208) 12 MG/DL CREATININE (test code = 2214) 0.60 MG/DL eGFR (2020 CKD-EPI) (test co de = 01627) 99 ML/MIN/1.73 CALC BUN/CREAT (test code = [...] (test code = 2219) 11 U/L LIPID [id number] 00:00:00* Test Item Value Reference Range Interpretation Comme nts CHOLESTEROL (test code = 2210) 236 MG/DL TRIGLYCERIDES (test code = 2232) 274 MG/DL HDL CHOLESTEROL (test code = 2220) 54 MG/DL CALC LDL CHOL (test code = 2237) 140 MG/DL RISK RATIO LDL/HDL (test cod e = 2238) 2.59 RATIO TSH, THIRD [id number] 00:00:00* Test Item Value Reference Range Interpretation Comme nts TSH, THIRD GENERATION (test code = 2821) 1.600 UIU/ML [id number] 00:00:00* Test Item Value Reference Range Interpretation Comme nts NT-proBNP (test code = 12335) <50 PG/ML CBC W/AUTO [id number] 00:00:00* Test Item Value Reference Range Interpretation [...] ABS NUCLEATED RBCS (test cod e = 10601) 0.00 K/UL Jaden F AustinCOMPREHENSIVE METABOLIC [id number] 00:00:00* Test Item Value Reference Range Interpretation Comme nts GLUCOSE (test code = 2217) 106 MG/DL BUN (test code = 220) 7 MG/DL CREATININE (test code = 2214) 0.57 MG/DL eGFR AMER. (test cod e = ) 113 ML/MIN/1.73 eGFR NON- AMER. (test code = 26702) 97 ML/MIN/1.73 CALC BUN/CREAT (test code = 2235) 12 RATIO SODIUM (test code = 223) 141 MEQ/L POTASSIUM (test code = 2228) 4.0 MEQ/L CHLORIDE (test code = 2215) 101 MEQ/L CARBON DIOXIDE (test code = 2206) 24 MEQ/L CALCIUM (test code = 2209) 9.7 MG/DL PROTEIN, TOTAL (test code = 2228) 7.3 G/DL ALBUMIN (test code = 220) 4.8 G/DL CALC GLOBULIN (test code = 2240) 2.5 G/DL CALC A/G RATIO (test code = 2234) 1.9 RATIO BILIRUBIN, TOTAL (test code = 2206) 0.2 MG/DL ALKALINE PHOSPHATASE (test code = 2203) 102 U/L AST (test code = 2218) 14 U/L ALT (test code = 2219) 12 U/L Jaden [id number] 00:00:00* Test Item Value Reference Range Interpretation Comme adrián TSH, THIRD GENERATION (test code = 2821) 1.390 UIU/ML Jaden PonceHEMOGLOBIN A1c [ADDED]2021-04-05 00:00:00* Test Item Value Reference Range Interpretation Comme adrián HEMOGLOBIN A1c (test code = 98763) 5.7 % Jaden PonceLIPID [id number] 00:00:00* Test Item Value Reference Range Interpretation Comme nts CHOLESTEROL (test code = 2210) 252 MG/DL TRIGLYCERIDES (test code = 2232) 171 MG/DL HDL CHOLESTEROL (test code = 2220) 61 MG/DL CALC LDL CHOL (test code = 7) 159 MG/DL RISK RATIO LDL/HDL (test cod e = 2238) 2.61 RATIO Jaden PonceCBC W/AUTO [id number] 00:00:00* Test Item Value Reference Range Interpretation [...] ABS NUCLEATED RBCS (test cod e = 85184) 0.00 K/UL Jaden Betancourt KrisCOMPREHENSIVE METABOLIC [id number] 00:00:00* Test Item Value Reference Range Interpretation Comme nts GLUCOSE (test code = 2217) 106 MG/DL BUN (test code = 2208) 7 MG/DL CREATININE (test code = 2214) 0.57 MG/DL eGFR AMER. (test cod e = 96443) 113 ML/MIN/1.73 eGFR NON- AMER. (test code = 29840) 97 ML/MIN/1.73 CALC BUN/CREAT (test code = [...] ALT (test code = 2219) 12 U/L Jaden [id number] 00:00:00* Test Item Value Reference Range Interpretation Comme adrián TSH, THIRD GENERATION (test code = 2821) 1.390 UIU/ML Jaden PonceHEMOGLOBIN A1c [ADDED]2021-04-05 00:00:00* Test Item Value Reference Range Interpretation Comme adrián HEMOGLOBIN A1c (test code = 48033) 5.7 % Jaden PonceLIPID [id number] 00:00:00* Test Item Value Reference Range Interpretation Comme nts CHOLESTEROL (test code = 2210) 252 MG/DL TRIGLYCERIDES (test code = 2232) 171 MG/DL HDL CHOLESTEROL (test code = 2220) 61 MG/DL CALC LDL CHOL (test code = 2237) 159 MG/DL RISK RATIO LDL/HDL (test cod e = 2238) 2.61 RATIO Jaden PonceCBC W/AUTO [id number] 00:00:00* Test Item Value Reference Range Interpretation [...] ABS NUCLEATED RBCS (test cod e = 66679) 0.00 K/UL Jdaen PonceCOMPREHENSIVE METABOLIC [id number] 00:00:00* Test Item Value Reference Range Interpretation Comme nts GLUCOSE (test code = 2217) 106 MG/DL BUN (test code = 2208) 7 MG/DL CREATININE (test code = 2214) 0.57 MG/DL eGFR AMER. (test cod e = 92912) 113 ML/MIN/1.73 eGFR NON- AMER. (test code = 08882) 97 ML/MIN/1.73 CALC BUN/CREAT (test code = [...] ALT (test code = 2219) 12 U/L Jaden [id number] 00:00:00* Test Item Value Reference Range Interpretation Comme nts TSH, THIRD GENERATION (test code = 2821) 1.390 UIU/ML Jaden PonceHEMOGLOBIN A1c [ADDED]2021-04-05 00:00:00* Test Item Value Reference Range Interpretation Comme nts HEMOGLOBIN A1c (test code = 19748) 5.7 % Jaden PnoceLIPID [id number] 00:00:00* Test Item Value Reference Range Interpretation Comme nts CHOLESTEROL (test code = 2210) 252 MG/DL TRIGLYCERIDES (test code = 2232) 171 MG/DL HDL CHOLESTEROL (test code = 2220) 61 MG/DL CALC LDL CHOL (test code = 2237) 159 MG/DL RISK RATIO LDL/HDL (test cod e = 2238) 2.61 RATIO Jaden PonceLIPID [id number] 00:00:00* Test Item Value Reference Range Interpretation Comme nts CHOLESTEROL (test code = 2210) 252 MG/DL TRIGLYCERIDES (test code = 2232) 171 MG/DL HDL CHOLESTEROL (test code = 2220) 61 MG/DL CALC LDL CHOL (test code = 2237) 159 MG/DL RISK RATIO LDL/HDL (test cod e = 2238) 2.61 RATIO CBC W/AUTO [id number] 00:00:00* Test Item Value Reference Range Interpretation [...] ABS NUCLEATED RBCS (test cod e = 62900) 0.00 K/UL COMPREHENSIVE METABOLIC [id number] 00:00:00* Test Item Value Reference Range Interpretation Comme nts GLUCOSE (test code = 2217) 106 MG/DL BUN (test code = 2208) 7 MG/DL CREATININE (test code = 2214) 0.57 MG/DL eGFR AMER. (test cod e = 72354) 113 ML/MIN/1.73 eGFR NON- AMER. (test code = 53652) 97 ML/MIN/1.73 CALC BUN/CREAT (test code = [...] ALT (test code = 2219) 12 U/L [id number] 00:00:00* Test Item Value Reference Range Interpretation Comme nts TSH, THIRD GENERATION (test code = 2821) 1.390 UIU/ML HEMOGLOBIN A1c [ADDED]2021-04-05 00:00:00* Test Item Value Reference Range Interpretation Comme nts HEMOGLOBIN A1c (test code = 69673) 5.7 % LIPID [id number] 00:00:00* Test Item Value Reference Range Interpretation Comme nts CHOLESTEROL (test code = 2210) 252 MG/DL TRIGLYCERIDES (test code = 2232) 171 MG/DL HDL CHOLESTEROL (test code = 2220) 61 MG/DL CALC LDL CHOL (test code = 2237) 159 MG/DL RISK RATIO LDL/HDL (test cod e = 2238) 2.61 RATIO CBC W/AUTO [id number] 00:00:00* Test Item Value Reference Range Interpretation [...] ABS NUCLEATED RBCS (test cod e = 19009) 0.00 K/UL COMPREHENSIVE METABOLIC [id number] 00:00:00* Test Item Value Reference Range Interpretation Comme nts GLUCOSE (test code = 2217) 106 MG/DL BUN (test code = 2208) 7 MG/DL CREATININE (test code = 2214) 0.57 MG/DL eGFR AMER. (test cod e = 94214) 113 ML/MIN/1.73 eGFR NON- AMER. (test code = 52885) 97 ML/MIN/1.73 CALC BUN/CREAT (test code = 2235) 12 RATIO SODIUM (test code = 223) 141 [...] 1.9 RATIO BILIRUBIN, TOTAL (test code = 220) 0.2 MG/DL ALKALINE PHOSPHATASE (test code = 2203) 102 U/L AST (test code = 221) 14 U/L ALT (test code = 221) 12 U/L [id number] 00:00:00* Test Item Value Reference Range Interpretation Comme nts TSH, THIRD GENERATION (test code = 2821) 1.390 UIU/ML HEMOGLOBIN A1c [ADDED]2021-04-05 00:00:00* Test Item Value Reference Range Interpretation Comme nts HEMOGLOBIN A1c (test code = 59189) 5.7 % LIPID [id number] 00:00:00* Test Item Value Reference Range Interpretation Comme nts CHOLESTEROL (test code = 2210) 252 MG/DL TRIGLYCERIDES (test code = 2232) 171 MG/DL HDL CHOLESTEROL (test code = 2220) 61 MG/DL CALC LDL CHOL (test code = 2237) 159 MG/DL RISK RATIO LDL/HDL (test cod e = 2238) 2.61 RATIO CBC W/AUTO [id number] 00:00:00* Test Item Value Reference Range Interpretation [...] ABS NUCLEATED RBCS (test cod e = 25869) 0.00 K/UL COMPREHENSIVE METABOLIC [id number] 00:00:00* Test Item Value Reference Range Interpretation Comme nts GLUCOSE (test code = 2217) 106 MG/DL BUN (test code = 2208) 7 MG/DL CREATININE (test code = 2214) 0.57 MG/DL eGFR AMER. (test cod e = 94503) 113 ML/MIN/1.73 eGFR NON- AMER. (test code = 04132) 97 ML/MIN/1.73 CALC BUN/CREAT (test code = [...] ALT (test code = 2219) 12 U/L [id number] 00:00:00* Test Item Value Reference Range Interpretation Comme nts TSH, THIRD GENERATION (test code = 2821) 1.390 UIU/ML HEMOGLOBIN A1c [ADDED]2021-04-05 00:00:00* Test Item Value Reference Range Interpretation Comme nts HEMOGLOBIN A1c (test code = 72034) 5.7 % LIPID [id number] 00:00:00* Test Item Value Reference Range Interpretation Comme nts CHOLESTEROL (test code = 2210) 252 MG/DL TRIGLYCERIDES (test code = 2232) 171 MG/DL HDL CHOLESTEROL (test code = 2220) 61 MG/DL CALC LDL CHOL (test code = 2237) 159 MG/DL RISK RATIO LDL/HDL (test cod e = 2238) 2.61 RATIO CBC W/AUTO [id number] 00:00:00* Test Item Value Reference Range Interpretation [...] ABS NUCLEATED RBCS (test cod e = 60433) 0.00 K/UL COMPREHENSIVE METABOLIC [id number] 00:00:00* Test Item Value Reference Range Interpretation Comme nts GLUCOSE (test code = 2217) 106 MG/DL BUN (test code = 2208) 7 MG/DL CREATININE (test code = 2214) 0.57 MG/DL eGFR AMER. (test cod e = 95603) 113 ML/MIN/1.73 eGFR NON- AMER. (test code = 92722) 97 ML/MIN/1.73 CALC BUN/CREAT (test code = [...] ALT (test code = 2219) 12 U/L [id number] 00:00:00* Test Item Value Reference Range Interpretation Comme nts TSH, THIRD GENERATION (test code = 2821) 1.390 UIU/ML HEMOGLOBIN A1c [ADDED]2021-04-05 00:00:00* Test Item Value Reference Range Interpretation Comme nts HEMOGLOBIN A1c (test code = 74728) 5.7 % HEMOGLOBIN [id number] 00:00:00* Test Item Value Reference Range Interpretation Comme nts HEMOGLOBIN A1c (test code = 19521) 5.7 % Jaden F AustinLIPID [id number] 00:00:00* Test Item Value Reference Range Interpretation Comme nts CHOLESTEROL (test code = 2210) 166 MG/DL TRIGLYCERIDES (test code = 2232) 209 MG/DL HDL CHOLESTEROL (test code = 2220) 47 MG/DL CALC LDL CHOL (test code = 2237) 89 MG/DL RISK RATIO LDL/HDL (test cod e = 2238) 1.89 RATIO Jaden PonceCOMPREHENSIVE METABOLIC [id number] 00:00:00* Test Item Value Reference Range Interpretation Comme nts GLUCOSE (test code = 2217) 106 MG/DL BUN (test code = 2208) 10 MG/DL CREATININE (test code = 2214) 0.64 MG/DL eGFR AMER. (test cod e = 12520) 110 ML/MIN/1.73 eGFR NON- AMER. (test code = 67062) 95 ML/MIN/1.73 CALC BUN/CREAT (test code = [...] ALT (test code = 2219) 19 U/L Jaden [id number] 00:00:00* Test Item Value Reference Range Interpretation Comme nts TSH, THIRD GENERATION (test code = 2821) 1.690 UIU/ML Jaden PonceCBC W/AUTO [id number] 00:00:00* Test Item Value Reference Range Interpretation [...] COUNT (test code = 1015) 249 K/UL Jaden PonceHEMOGLOBIN [id number] 00:00:00* Test Item Value Reference Range Interpretation Comme nts HEMOGLOBIN A1c (test code = 62917) 5.7 % Jaden PonceLIPID [id number] 00:00:00* Test Item Value Reference Range Interpretation Comme nts CHOLESTEROL (test code = 2210) 166 MG/DL TRIGLYCERIDES (test code = 2232) 209 MG/DL HDL CHOLESTEROL (test code = 2220) 47 MG/DL CALC LDL CHOL (test code = 2237) 89 MG/DL RISK RATIO LDL/HDL (test cod e = 2238) 1.89 RATIO Jaden PonceCOMPREHENSIVE METABOLIC [id number] 00:00:00* Test Item Value Reference Range Interpretation Comme nts GLUCOSE (test code = 2217) 106 MG/DL BUN (test code = 2208) 10 MG/DL CREATININE (test code = 2214) 0.64 MG/DL eGFR AMER. (test cod e = 26860) 110 ML/MIN/1.73 eGFR NON- AMER. (test code = 40559) 95 ML/MIN/1.73 CALC BUN/CREAT (test code = [...] ALT (test code = 2219) 19 U/L Jaden [id number] 00:00:00* Test Item Value Reference Range Interpretation Comme nts TSH, THIRD GENERATION (test code = 2821) 1.690 UIU/ML Jaden PonceCBC W/AUTO [id number] 00:00:00* Test Item Value Reference Range Interpretation [...] COUNT (test code = 1015) 249 K/UL Jaden PonceHEMOGLOBIN [id number] 00:00:00* Test Item Value Reference Range Interpretation Comme adrián HEMOGLOBIN A1c (test code = 46287) 5.7 % Jaden PonceLIPID [id number] 00:00:00* Test Item Value Reference Range Interpretation Comme nts CHOLESTEROL (test code = 2210) 166 MG/DL TRIGLYCERIDES (test code = 2232) 209 MG/DL HDL CHOLESTEROL (test code = 2220) 47 MG/DL CALC LDL CHOL (test code = 2237) 89 MG/DL RISK RATIO LDL/HDL (test cod e = 2238) 1.89 RATIO Jaden PonceCOMPREHENSIVE METABOLIC [id number] 00:00:00* Test Item Value Reference Range Interpretation Comme nts GLUCOSE (test code = 2217) 106 MG/DL BUN (test code = 2208) 10 MG/DL CREATININE (test code = 2214) 0.64 MG/DL eGFR AMER. (test cod e = 09370) 110 ML/MIN/1.73 eGFR NON- AMER. (test code = 47564) 95 ML/MIN/1.73 CALC BUN/CREAT (test code = [...] ALT (test code = 2219) 19 U/L Jaden [id number] 00:00:00* Test Item Value Reference Range Interpretation Comme nts TSH, THIRD GENERATION (test code = 2821) 1.690 UIU/ML Jaden ChapaC W/AUTO [id number] 00:00:00* Test Item Value Reference Range Interpretation [...] COUNT (test code = 1015) 249 K/UL Jaden ChapaC W/AUTO [id number] 00:00:00* Test Item Value Reference Range Interpretation [...] (test code = 1015) 249 K/UL HEMOGLOBIN [id number] 00:00:00* Test Item Value Reference Range Interpretation Comme nts HEMOGLOBIN A1c (test code = 66868) 5.7 % LIPID [id number] 00:00:00* Test Item Value Reference Range Interpretation Comme nts CHOLESTEROL (test code = 2210) 166 MG/DL TRIGLYCERIDES (test code = 2232) 209 MG/DL HDL CHOLESTEROL (test code = 2220) 47 MG/DL CALC LDL CHOL (test code = 2237) 89 MG/DL RISK RATIO LDL/HDL (test cod e = 2238) 1.89 RATIO COMPREHENSIVE METABOLIC [id number] 00:00:00* Test Item Value Reference Range Interpretation Comme nts GLUCOSE (test code = 2217) 106 MG/DL BUN (test code = 2208) 10 MG/DL CREATININE (test code = 2214) 0.64 MG/DL eGFR AMER. (test cod e = 38705) 110 ML/MIN/1.73 eGFR NON- AMER. (test code = 60663) 95 ML/MIN/1.73 CALC BUN/CREAT (test code = [...] ALT (test code = 2219) 19 U/L [id number] 00:00:00* Test Item Value Reference Range Interpretation Comme nts TSH, THIRD GENERATION (test code = 2821) 1.690 UIU/ML CBC W/AUTO [id number] 00:00:00* Test Item Value Reference Range Interpretation [...] (test code = 1015) 249 K/UL HEMOGLOBIN [id number] 00:00:00* Test Item Value Reference Range Interpretation Comme nts HEMOGLOBIN A1c (test code = 36134) 5.7 % LIPID [id number] 00:00:00* Test Item Value Reference Range Interpretation Comme nts CHOLESTEROL (test code = 2210) 166 MG/DL TRIGLYCERIDES (test code = 2232) 209 MG/DL HDL CHOLESTEROL (test code = 2220) 47 MG/DL CALC LDL CHOL (test code = 2237) 89 MG/DL RISK RATIO LDL/HDL (test cod e = 2238) 1.89 RATIO COMPREHENSIVE METABOLIC [id number] 00:00:00* Test Item Value Reference Range Interpretation Comme nts GLUCOSE (test code = 2217) 106 MG/DL BUN (test code = 2208) 10 MG/DL CREATININE (test code = 2214) 0.64 MG/DL eGFR AMER. (test cod e = 29684) 110 ML/MIN/1.73 eGFR NON- AMER. (test code = 44901) 95 ML/MIN/1.73 CALC BUN/CREAT (test code = [...] ALT (test code = 2219) 19 U/L [id number] 00:00:00* Test Item Value Reference Range Interpretation Comme nts TSH, THIRD GENERATION (test code = 2821) 1.690 UIU/ML CBC W/AUTO [id number] 00:00:00* Test Item Value Reference Range Interpretation [...] (test code = 1015) 249 K/UL HEMOGLOBIN [id number] 00:00:00* Test Item Value Reference Range Interpretation Comme nts HEMOGLOBIN A1c (test code = 64607) 5.7 % LIPID [id number] 00:00:00* Test Item Value Reference Range Interpretation Comme nts CHOLESTEROL (test code = 2210) 166 MG/DL TRIGLYCERIDES (test code = 2232) 209 MG/DL HDL CHOLESTEROL (test code = 2220) 47 MG/DL CALC LDL CHOL (test code = 2237) 89 MG/DL RISK RATIO LDL/HDL (test cod e = 2238) 1.89 RATIO COMPREHENSIVE METABOLIC [id number] 00:00:00* Test Item Value Reference Range Interpretation Comme nts GLUCOSE (test code = 2217) 106 MG/DL BUN (test code = 2208) 10 MG/DL CREATININE (test code = 2214) 0.64 MG/DL eGFR AMER. (test cod e = 30387) 110 ML/MIN/1.73 eGFR NON- AMER. (test code = 76464) 95 ML/MIN/1.73 CALC BUN/CREAT (test code = [...] ALT (test code = 2219) 19 U/L [id number] 00:00:00* Test Item Value Reference Range Interpretation Comme nts TSH, THIRD GENERATION (test code = 2821) 1.690 UIU/ML CBC W/AUTO [id number] 00:00:00* Test Item Value Reference Range Interpretation [...] (test code = 1015) 249 K/UL HEMOGLOBIN [id number] 00:00:00* Test Item Value Reference Range Interpretation Comme nts HEMOGLOBIN A1c (test code = 78405) 5.7 % LIPID [id number] 00:00:00* Test Item Value Reference Range Interpretation Comme nts CHOLESTEROL (test code = 2210) 166 MG/DL TRIGLYCERIDES (test code = 2232) 209 MG/DL HDL CHOLESTEROL (test code = 2220) 47 MG/DL CALC LDL CHOL (test code = 2237) 89 MG/DL RISK RATIO LDL/HDL (test cod e = 2238) 1.89 RATIO COMPREHENSIVE METABOLIC [id number] 00:00:00* Test Item Value Reference Range Interpretation Comme nts GLUCOSE (test code = 2217) 106 MG/DL BUN (test code = 2208) 10 MG/DL CREATININE (test code = 2214) 0.64 MG/DL eGFR AMER. (test cod e = 10075) 110 ML/MIN/1.73 eGFR NON- AMER. (test code = 64497) 95 ML/MIN/1.73 CALC BUN/CREAT (test code = [...] ALT (test code = 2219) 19 U/L [id number] 00:00:00* Test Item Value Reference Range Interpretation Comme nts TSH, THIRD GENERATION (test code = 2821) 1.690 UIU/ML Notes Date/Time Note [facility]:00 [facility]
[2024-03-22] MEDS ORDERED: ONDANSETRON 4 MG/2 ML VIAL ONE (14:28)
[2024-03-22] MEDS ORDERED: NA CHLORIDE 0.9% 1,000 ML ONE (14:28)
[2024-03-22] MEDS ORDERED: FAMOTIDINE 20 MG/2 ML VIAL IV ONE (14:28)
[2024-03-22] MEDS ORDERED: MORPHINE 4 MG/ML SYR ONE (14:28)
[2024-03-22 14:51] LABS: Absolute Lymphocytes (CBC) 0.7 K/uL (0.7-4.9); Absolute Monocytes 0.3 K/uL (0.1-1.3); Absolute Neutrophil 5.7 K/uL (1.8-8.0); Basophils % 0.6 % (0-1.3); Eosinophils % 0.1 % (0-4.4); MCH 32.5 pg (27.0-35.0); MCHC 33.3 g/dL (32.0-36.0); MCV 97.4 fL (80-100); MPV 8.1 fL (7.6-11.3); Monocytes % 4.5 % (3.3-12.3); Neutrophils % 84.8 % (41.7-73.7); Platelets 199 thou/uL (152-406); RBC Red Blood Cell Count 4.92 M/uL (3.86-4.86); Red Cell Distribution Width 13.9 % (12.1-15.2)
[2024-03-22 15:08] LABS: Albumin 3.7 g/dL (3.4-5.0); Albumin/Globulin Ratio 1.1 (1.1-1.8); Anion Gap 10.6 mEq/L (5.0-15.0); Bilirubin Total 0.5 mg/dL (0.2-1.0); Globulin 3.4 g/dL (2.3-3.5); Potassium 3.6 mEq/L (3.5-5.1); Protein, Total 7.1 g/dL (6.4-8.2)
--- NOTE | 2024-03-22 15:47 | RAD REPORT ---
EXAMINATION: CT ABDOMEN AND PELVIS WITH CONTRAST CLINICAL INDICATION: Abdominal pain TECHNIQUE: CT abdomen and pelvis was performed, after the administration of 100 cc Isovue-300.. Sagit ryan and coronal reconstructions were obtained. One or more of the following dose reduction techniques were used: Automated exposure control, adjustment of the mA and kV according to patient si ze, and iterative reconstruction. Unless otherwise specified, incidental findings do not require dedicated imaging follow-up. [id number]. Oral contrast was not given which limits evaluation of bowel and appendix. COMPARISON: October 2023 FINDINGS: Cholecystectomy. Liver, spleen, pancreas, adrenals and kidneys appear unremarkable No evidence of diverticulitis. Hysterectomy. No adnexal mass : IMPRESSION: No acute abnormality displayed
[2024-03-22] MEDS ORDERED: PROMETHAZINE INJ 25 MG/ML AMP ONE (16:42)
--- NOTE | 2024-03-22 16:56 | ER ---
Nurse's Notes [facility] Name: Delmi Pool Age: 69 yrs Sex: Female : 1955 Arrival Date: 03/22/2024 Time: 14:04 Bed 3 Private MD: Diagnosis: Intractable vomiting Presentation: 03/22 14:08 Chief complaint: EMS states: Toned out for N/V since 0400 this morning BP 123/69, HR jl7 110, RR 16, O2 98% on RA. Coronavirus screen: At this time, the client does not indicate any symptoms associated with coronavirus-19. Ebola Screen: No symptoms or risks identified at this time. Initial Sepsis Screen: Does the patient meet any 2 criteria? No. Patient's initial sepsis screen is negative. Does the patient have a suspected source of infection? No. Patient's initial sepsis screen is negative. Risk Assessment: Do you want to hurt yourself or someone else? Patient reports no desire to harm self or others. Onset of symptoms was March 22, 2024 at 04:00. 14:08 Method Of Arrival: EMS: [facility] jl7 14:08 Acuity: GILBERTO 3 jl7 Triage Assessment: 14:10 General: Appears in no apparent distress. uncomfortable, Behavior is calm, cooperative, jl7 appropriate for age. Pain: Complains of pain in back Pain currently is 9 out of 10 on a pain scale. Cardiovascular: Patient's skin is warm and dry. GI: Reports nausea, vomiting. : Reports Pelvic pain. Derm: Skin is pink, warm \T\ dry. Historical: - Allergies: 14:10 Toradol; jl7 14:10 tramadol; jl7 - PMHx: 14:10 diabetes mellitus; Hypercholesterolemia; Hypertensive disorder; neuropathy; jl7 - PSHx: 14:10 Appendectomy; Bowel Retracement; section; Cholecystectomy; jl7 - Immunization history:: Adult Immunizations unknown. - Infectious Disease History:: Denies. - Social history:: Smoking status: Patient reports the use of cigarette tobacco products, denies chronic smoking, but will smoke occasionally. - Family history:: not pertinent. - Hospitalizations: : No recent hospitalization is reported. Screenin:08 Abuse screen: Denies threats or abuse. Denies injuries from another. Nutritional jl7 screening: No deficits noted. Tuberculosis screening: No symptoms or risk factors identified. 15:04 [facility] ED Fall Risk Assessment (Adult) History of falling in the last 3 months, ko1 including since admission No falls in past 3 months (0 pts) Confusion or Disorientation No (0 pts) Intoxicated or Sedated No (0 pts) Impaired Gait No (0 pts) Mobility Assist Device Used No (0 pt) Altered Elimination No (0 pt) Score/Fall Risk Level 0 - 2 = Low Risk Oriented to surroundings, Maintained a safe environment, Educated pt \T\ family on fall prevention, incl call for assistance when getting out of bed, Assessed \T\ reinforced patient's understanding of fall precautions, Hourly rounding (assess needs \T\ fall precautionary measures) done. Assessment: 14:08 Reassessment: Dr. Draper at bedside assessing pt and discussing POC. [facility] 14:15 General: see triage. [facility] 15:15 Reassessment: Patient appears in no apparent distress at this time. No changes from 7 previously documented assessment. Patient and/or family updated on plan of care and expected duration. Pain level reassessed. Patient is alert, oriented x 3, equal unlabored respirations, skin warm/dry/pink. 16:45 Reassessment: Dr. Draper at bedside discussing results and POC. [facility] 17:15 Reassessment: Patient appears in no apparent distress at this time. No changes from 7 previously documented assessment. Patient and/or family updated on plan of care and expected duration. Pain level reassessed. Patient is alert, oriented x 3, equal unlabored respirations, skin warm/dry/pink. 18:15 Reassessment: Patient appears in no apparent distress at this time. No changes from 7 previously documented assessment. Patient and/or family updated on plan of care and expected duration. Pain level reassessed. Patient is alert, oriented x 3, equal unlabored respirations, skin warm/dry/pink. 19:17 Reassessment: Patient appears in no apparent distress at this time. Patient and/or bm8 family updated on plan of care and expected duration. Pain level reassessed. Patient is alert, oriented x 3, equal unlabored respirations, skin warm/dry/pink. Patient states symptoms have not improved. Pain: Complains of pain in back and abdomen Pain currently is 9 out of 10 on a pain scale. Quality of pain is described as aching, crampy. Neuro: No deficits noted. Level of Consciousness is awake, alert, obeys commands, Oriented to person, place, time, situation, Appropriate for age. Cardiovascular: Denies chest pain, Capillary refill < 3 seconds in bilateral fingers Patient's skin is warm and dry. Respiratory: Airway is patent Respiratory effort is even, unlabored, Respiratory pattern is regular, symmetrical. GI: Abdomen is flat, non-distended, Reports lower abdominal pain, nausea, Pain is 9 out of 10 on a pain scale. vomiting. : No signs and/or symptoms were reported regarding the genitourinary system. EENT: No signs and/or symptoms were reported regarding the EENT system. Derm: No signs and/or symptoms reported regarding the dermatologic system. Musculoskeletal: No signs and/or symptoms reported regarding the musculoskeletal system. 20:00 Reassessment: pt refused wearing of hospital gown upon admission. bm8 Vital Signs: 14:08 Weight 54.43 kg; Height 5 ft. 0 in. ; Pain 9/10; jl7 14:34 BP 140 / 84; Pulse 79; Resp 20; Pulse Ox 96% ; ko1 15:04 BP 136 / 73; Pulse 92; Resp 16; Pulse Ox 99% ; ko1 16:40 BP 132 / 74; Pulse 98; Resp 16; Pulse Ox 98% ; ko1 17:33 BP 149 / 81; Pulse 94; Resp 15; Pulse Ox 96% ; jl7 18:00 BP 137 / 70; Pulse 93; Resp 15; Pulse Ox 98% ; jl7 18:30 BP 139 / 71; Pulse 95; Resp 15; Pulse Ox 96% ; jl7 19:17 BP 146 / 72; Pulse 95; Resp 18; Temp 97.2; Pulse Ox 97% ; Pain 9/10; bm8 14:08 Body Mass Index 23.44 (54.43 kg, 152.4 cm) jl7 14:08 Pain Scale: Adult jl7 19:17 Pain Scale: Adult bm8 [place] Coma Score: 19:17 Eye Response: spontaneous(4). Motor Response: obeys commands(6). Verbal Response: bm8 oriented(5). Total: 15. ED Course: 14:07 Patient arrived in ED. sb4 14:08 Fredrick Draper MD is Attending Physician. rn 14:08 Barron Carvajal, UBALDO is Primary Nurse. jl7 14:08 Patient has correct armband on for positive identification. Bed in low position. Call jl7 light in reach. Side rails up X2. Provided Education on: use of call ron. 14:10 Triage completed. jl7 14:10 Arm band placed on right wrist. jl7 15:04 Client placed on continuous cardiac and pulse oximetry monitoring. NIBP monitoring ko1 applied. loss claim clerk on. Door closed. Noise minimized. Lights dimmed. Warm blanket given. Pillow given. 15:04 No provider procedures requiring assistance completed. ko1 15:24 CT Abd/Pelvis - IV Contrast Only In Process Unspecified. EDMS 16:45 Urine collected: straight cath specimen, seema colored. Straight cath inserted, using jl7 sterile technique, 14 Fr. Specimen obtained. Returned seema urine. Patient tolerated well. 16:56 Arnie Escobar MD is Hospitalizing Provider. rn 17:33 Patient admitted, IV remains in place. intact, No redness/swelling at site. jl7 18:05 Admitting physician to see patient. ko1 19:17 Report received from ubaldo fong. bm8 Administered Medications: 14:35 Drug: Ondansetron IVP 4 mg IVP once; over 2 minutes Route: IVP; Site: left antecubital; ko1 14:50 Follow up: Response: No adverse reaction ko1 14:35 Drug: NS 0.9% IV 1000 ml IV at 1 bolus Per protocol; to be given as a bolus over 60 ko1 minutes Route: IV; Rate: 1 bolus; Site: left antecubital; 16:39 Follow up: Response: No adverse reaction; IV Status: Completed infusion; IV Intake: ko1 1000ml 14:38 Drug: Famotidine IVP 20 mg IVP once; dilute with 10 mL 0.9% NaCl; give over 2 minutes ko1 Route: IVP; Site: left antecubital; 14:53 Follow up: Response: No adverse reaction ko1 14:45 Drug: morphine IVP or IV 4 mg IVP once over 4 mins Route: IVP; Infused Over: 4 mins; ko1 Site: left antecubital; 15:00 Follow up: Response: No adverse reaction ko1 16:45 Drug: Promethazine IVP 12.5 mg IVP once Route: IVP; Site: left antecubital; jl7 17:00 Follow up: Response: No adverse reaction; Nausea is decreased ko1 Medication: 14:08 VIS not applicable for this client. jl7 Intake: 16:39 IV: 1000ml; Total: 1000ml. ko1 Outcome: 16:56 Decision to Hospitalize by Provider. rn 20:05 Admitted to Med/surg accompanied by tech, via wheelchair, room 219, with chart, bm8 20:05 Condition: stable 20:05 Instructed on the need for admit, Demonstrated understanding of instructions, follow-up care, 20:34 Patient left the ED. bm8 Signatures: Dispatcher [employer] EDMS Fredrick Draper MD MD rn Leal, Jahala RN RN jl7 Carrie Harp RN RN ko1 Matilda Greenwood, PA-C PA-C sb4 Kodi Denny, RN RN bm8 Corrections: (The following items were deleted from the chart) 19:21 19:17 BP 146 / 72; Pulse 95bpm; Resp 18bpm; Pulse Ox 97%; Temp 96F; Pain 9/10, Adult; bm8 bm8
--- NOTE | 2024-03-22 16:56 | EDPHYS ---
Physician Documentation [facility] Name: Delmi Pool Age: 69 yrs Sex: Female : 1955 Arrival Date: 03/22/2024 Time: 14:04 Bed 3 Private MD: ED Physician Fredrick Draper HPI: 03/22 14:27 This 69 yrs old Female presents to ER via EMS with complaints of Nausea/Vomiting. rn 14:27 The patient presents to the emergency department with nausea, vomiting, abdominal pain. rn Onset: The symptoms/episode began/occurred this morning. Possible causes: unknown. The symptoms are aggravated by nothing. Severity of symptoms: At their worst the symptoms were moderate in the emergency department the symptoms are unchanged. The patient has experienced similar episodes in the past. The patient has not recently seen a physician. Patient reports upper and lower abdominal pain with nausea and vomiting that began this morning at 430. Similar episodes in the past. Reports has stomach ulcers. Denies hematuria or blood in stool or melena. Reports subjective fever and chills at home. Also reports dysuria.. Historical: - Allergies: 14:10 Toradol; jl7 14:10 tramadol; jl7 - PMHx: 14:10 diabetes mellitus; Hypercholesterolemia; Hypertensive disorder; neuropathy; jl7 - PSHx: 14:10 Appendectomy; Bowel Retracement; section; Cholecystectomy; jl7 - Immunization history:: Adult Immunizations unknown. - Infectious Disease History:: Denies. - Social history:: Smoking status: Patient reports the use of cigarette tobacco products, denies chronic smoking, but will smoke occasionally. - Family history:: not pertinent. - Hospitalizations: : No recent hospitalization is reported. ROS: 14:27 Constitutional: Positive for subjective fever Cardiovascular: Negative for chest pain, rn palpitations, and edema, Respiratory: Negative for shortness of breath, cough, wheezing, and pleuritic chest pain, Abdomen/GI: Positive for epigastric and suprapubic abdominal pain Back: Negative for injury and pain, : Positive for dysuria and suprapubic abdominal pain MS/Extremity: Negative for injury and deformity, Skin: Negative for injury, rash, and discoloration, Neuro: Negative for headache, weakness, numbness, tingling, and seizure, Exam: 14:27 Constitutional: This is a well developed, well nourished patient who is awake, alert, rn appears disheveled and holding emesis bag. Head/Face: Normocephalic, atraumatic. ENT: Dry mucous membranes Cardiovascular: Regular rate and rhythm. No pulse deficits. Respiratory: No increased work of breathing, no retractions or nasal flaring. Abdomen/GI: Soft, positive tenderness epigastric and suprapubic regions, no peritoneal signs MS/ Extremity: Pulses equal, no cyanosis. Neuro: Awake and alert, GCS 15 Vital Signs: 14:08 Weight 54.43 kg; Height 5 ft. 0 in. ; Pain 9/10; jl7 14:34 BP 140 / 84; Pulse 79; Resp 20; Pulse Ox 96% ; ko1 15:04 BP 136 / 73; Pulse 92; Resp 16; Pulse Ox 99% ; ko1 16:40 BP 132 / 74; Pulse 98; Resp 16; Pulse Ox 98% ; ko1 17:33 BP 149 / 81; Pulse 94; Resp 15; Pulse Ox 96% ; jl7 18:00 BP 137 / 70; Pulse 93; Resp 15; Pulse Ox 98% ; jl7 18:30 BP 139 / 71; Pulse 95; Resp 15; Pulse Ox 96% ; jl7 19:17 BP 146 / 72; Pulse 95; Resp 18; Temp 97.2; Pulse Ox 97% ; Pain 9/10; bm8 14:08 Body Mass Index 23.44 (54.43 kg, 152.4 cm) jl7 14:08 Pain Scale: Adult jl7 19:17 Pain Scale: Adult bm8 [place] Coma Score: 19:17 Eye Response: spontaneous(4). Motor Response: obeys commands(6). Verbal Response: bm8 oriented(5). Total: 15. MDM: 14:08 Medical Screening Exam initiated rn 16:52 Differential diagnosis: Nonspecific abd pain, gastritis, pancreatitis, appendicitis, rn diverticulitis, viral gastroenteritis, gastroenteritis, Bowel obstruction. Data reviewed: vital signs, nurses notes, lab test result(s), radiologic studies, CT scan, and as a result, I will admit patient. Consideration of Admission/Observation Patient was admitted/placed on observation. Escalation of care including admission/observation considered. Counseling: I had a detailed discussion with the patient and/or guardian regarding the historical points, exam findings, and any diagnostic results supporting the discharge/admit diagnosis, lab results, radiology results, the need for further work-up and treatment in the hospital. Response to treatment: There is no appreciated change of the patient's symptoms at this time, and as a result, I will admit patient. ED course: No acute findings in CT abdomen pelvis. Urine pending but patient still unable to tolerate p.o., still with intractable nausea and vomiting. Will admit to hospitalist for further service. Patient with history of gastritis and ulcers and no bleeding today.. 03/22 14:12 Order name: CBC with Diff; Complete Time: 15:25 rn 03/22 14:12 Order name: CMP; Complete Time: 15:25 rn 03/22 14:12 Order name: Lipase; Complete Time: 15:25 rn 03/22 14:12 Order name: Urinalysis w/ reflexes; Complete Time: 17:28 rn 03/22 14:12 Order name: Flu; Complete Time: 15:51 rn 03/22 18:22 Order name: Basic Metabolic Panel [facility] 03/22 18:22 Order name: Basic Metabolic Panel [facility] 03/22 18:22 Order name: CBC with Automated Diff [facility] 03/22 18:22 Order name: CBC with Automated Diff [facility] 03/22 18:22 Order name: Lipase [facility] 03/22 18:22 Order name: Lipase [facility] 03/22 18:22 Order name: Lipid Profile [facility] 03/22 18:22 Order name: Lipid Profile [facility] 03/22 18:22 Order name: Liver (Hepatic) Function [facility] 03/22 18:22 Order name: Liver (Hepatic) Function [facility] 03/22 18:22 Order name: Magnesium [facility] 03/22 18:22 Order name: Magnesium [facility] 03/22 14:12 Order name: CT Abd/Pelvis - IV Contrast Only; Complete Time: 15:51 rn 03/22 14:12 Order name: IV Saline Lock; Complete Time: 14:34 rn 03/22 14:12 Order name: Labs collected and sent; Complete Time: 14:48 rn Administered Medications: 14:35 Drug: Ondansetron IVP 4 mg IVP once; over 2 minutes Route: IVP; Site: left antecubital; ko1 14:50 Follow up: Response: No adverse reaction ko1 14:35 Drug: NS 0.9% IV 1000 ml IV at 1 bolus Per protocol; to be given as a bolus over 60 ko1 minutes Route: IV; Rate: 1 bolus; Site: left antecubital; 16:39 Follow up: Response: No adverse reaction; IV Status: Completed infusion; IV Intake: ko1 1000ml 14:38 Drug: Famotidine IVP 20 mg IVP once; dilute with 10 mL 0.9% NaCl; give over 2 minutes ko1 Route: IVP; Site: left antecubital; 14:53 Follow up: Response: No adverse reaction ko1 14:45 Drug: morphine IVP or IV 4 mg IVP once over 4 mins Route: IVP; Infused Over: 4 mins; ko1 Site: left antecubital; 15:00 Follow up: Response: No adverse reaction ko1 16:45 Drug: Promethazine IVP 12.5 mg IVP once Route: IVP; Site: left antecubital; jl7 17:00 Follow up: Response: No adverse reaction; Nausea is decreased ko1 Disposition Summary: 03/22/24 16:56 Hospitalization Ordered Notes: Hospitalization Status: Observation rn Provider: Arnie Escobar rn Location: Telemetry/MedSurg (observation) rn Condition: Stable rn Problem: new rn Symptoms: are unchanged rn Bed/Room Type: Standard rn Room Assignment: 219(03/22/24 19:07) vk Diagnosis - Intractable vomiting rn Forms: - Medication Reconciliation Form rn - SBAR form rn - Leadership Thank You Letter rn Signatures: Dispatcher [employer] EDFredrick Alarcon MD MD rn Leal, Jahala, RN RN jl7 Carrie Harp RN RN ko1 Claudia Mancilla Corrections: (The following items were deleted from the chart) 14:13 14:13 CBC+H.LAB.BRZ ordered. EDMS EDMS 14:13 14:13 COMPREHENSIVE METABOLIC PANEL+C.LAB.BRZ ordered. EDMS EDMS 14:13 14:13 LIPASE+C.LAB.BRZ ordered. EDMS EDMS 14:13 14:13 Urinalysis+U.LAB.BRZ ordered. EDMS EDMS 19:07 16:56 rn vk
--- NOTE | 2024-03-22 17:20 | P.HP ---
Certification for Inpatient Patient admitted to: Observation With expected LOS: <2 Midnights Patient will require the following post-hospital care: None Practitioner: I am a practitioner with admitting privileges, knowledge of patient current condition, hospital course, and medical plan of care. Services: Services provided to patient in accordance with Admission requirements found in Title 42 Section 412.3 of the Code of Federal Regulations Patient History Date of Service: 03/22/24 Reason for admission: Intractable nausea and vomiting History of Present Illness: Ms. Pool is a 69-year-old female with a past medical history of hypertension, reflux esophagitis, small bowel obstruction, gastroparesis with frequent episodes of nausea and vomiting. She presented to the emergency department secondary to low-grade fever x 2 episodes last p.m. and the initiation of significant nausea, vomiting, and diarrhea at 4 AM. She denies hematemesis or hematochezia/melena. In the past she has had some hyponatremia but today her sodium is 136, she is hemoconcentrated with an H&H of 16/48. 2+ ketones in her urine with a specific gravity greater than 1.030. We will admit her for rehydration, control of symptoms, and reevaluation of electrolytes. Allergies ketorolac [From Toradol] Allergy (Verified 09/27/22 18:46) Itching/Hives/Rash Sulfa (Sulfonamide Antibiotics) Allergy (Verified 08/20/14 13:11) Itching/Hives/Rash tramadol Allergy (Verified 09/27/22 18:46) Shortness of breath Home medications list reviewed: Yes (Gabapentin, promethazine, and losartan) Home Medications: Fenofibrate 40 mg PO DAILY 09/27/22 Amlodipine [Norvasc*] 5 mg PO DAILY #30 tab 10/01/22 Hydrocodone 5/APAP 325 [[place] 5/325*] 1 tab PO Q6H PRN #20 tab 10/01/22 Mag Hydrox/Al Hydrox/Simeth [Maalox Suspension] 15 ml PO TID PRN #355 ml 10/01/22 Pantoprazole [Protonix Tab*] 40 mg PO BID #60 tab 10/01/22 Gabapentin 800 mg PO TID 06/10/23 Losartan Potassium 50 mg PO DAILY 06/10/23 Metoclopramide HCl [Reglan] 5 mg PO AC #30 06/10/23 Metoclopramide [Reglan] 5 mg PO AC #30 tab 06/10/23 predniSONE [Deltasone] 20 mg PO BID #11 tab 06/10/23 - Past Medical/Surgical History Has patient received pneumonia vaccine in the past: No Diabetic: No -: NIDDM2 -: SBO -: GERD -: Chronic pain -: hysterectomy -: -: bowel resection Psychosocial/ Personal History: Lives in her home with her Son and his - Family History Father -: Other (see notes) Notes: thought to have from cancer Mother -: Other (see notes) Notes: spinal stenosis Brother -: Heart disease, Diabetes Notes: stents. stenosis Sister -: Blood disorders Notes: form of leukemia - Social History Smoking Status: Current some day smoker Alcohol use: No CD- Drugs: No Caffeine use: Yes Place of Residence: Home Review of Systems 10-point ROS is otherwise unremarkable General: Fever, Weakness, Malaise Eyes: Unremarkable ENT: Unremarkable Respiratory: Unremarkable Cardiovascular: Unremarkable Gastrointestinal: Nausea, Vomiting, Diarrhea, Other (denies bleeding) Genitourinary: Unremarkable Musculoskeletal: Unremarkable Integumentary: Unremarkable Neurological: Unremarkable Lymphatics: Unremarkable Physical Examination - Physical Exam General: Oriented x3, Cachectic, Disheveled, Mild distress HEENT: Atraumatic, Normocephalic Neck: Supple Respiratory: Expiratory wheezes Cardiovascular: Normal pulses, Regular rate/rhythm Capillary refill: >2 Seconds Gastrointestinal: Hypoactive Musculoskeletal: No clubbing, No swelling Integumentary: Other (mild pallor with poor turgor) Neurological: Normal speech, Normal tone, Abnormal affect Lymphatics: No axilla or inguinal lymphadenopathy External genitalia: Deferred Rectal: Deferred - Studies Laboratory Data (last 24 hrs) 03/22/24 03/22/24 14:39 14:39 WBC 6.70 Hgb 16.0 H Hct 48.0 H Plt Count 199 Sodium 136 Potassium 3.6 BUN 5 L Creatinine 0.65 Glucose 132 H Total Bilirubin 0.5 AST 11 L ALT 18 Alkaline Phosphatase 100 Lipase 15 Microbiology Data (last 24 hrs): 03/22/24 14:39 Nasopharnyx Influenza Type A Antigen Screen - Final 03/22/24 14:39 Nasopharnyx Influenza Type B Antigen Screen - Final Assessment and Plan - Plan Intractable nausea vomiting Likely gastroparesis Acute hemoconcentration/volume depletion/dehydration Inapsine 1.25mg IV Q12h prn supervisor shearing and trend electrolytes gentle hydration Outpatient GI workup Rule out infectious causes History of chronic pain History of oxycodone use at home - states she has not taken this type medication in months Medication reconciliation CT abdomen and pelvis in the ED with impression "No acute abnormality displayed" Consider lactulose HTN losartan 50mg po daily VTE/GI prophylaxis - Advance Directives Does patient have a Living Will: No Does patient have a Durable POA for Healthcare: No - Code Status/Comfort Care Code Status Assessed: Yes (Full)
[2024-03-22 17:25] LABS: Calcium Oxalate Crystals- Ur Few /HPF (None Seen); Sqamous Epithelial <5 /HPF (None Seen); Urine Bacteria None Seen /HPF (<20); Urine Bilirubin NEGATIVE (Negative); Urine Blood Negative (Negative); Urine Clarity Turbid (Clear); Urine Color Light-Yellow (Yellow); Urine Culture Reflex Order NOT NEEDED; Urine Glucose NEGATIVE (Negative); Urine Ketones 2+ (Negative); Urine Microscopic Reflex YN ORDER UMIC; Urine Nitrite NEGATIVE (Negative); Urine Protein 1+ (Negative); Urine RBC <5 /HPF (None Seen); Urine Urobilinogen Normal (Normal); Urine WBC <5 /HPF (<5); Urine pH 7.5 (5.0-7.0)
[2024-03-22 17:27] LABS: Specific Gravity > 1.030 (1.005-1.030)
[2024-03-22] MEDS ORDERED: ACETAMINOPHEN 500 MG TAB PO PRN (18:14)
[2024-03-22] MEDS ORDERED: SODIUM CHLORIDE 0.9% 10ML INJ IV PRN (18:14)
[2024-03-22] MEDS: PANTOPRAZOLE 40 MG INJ IVP SCH (20:33)
[2024-03-22] MEDS: Ringers Lactate 1,000 ML IV SCH (20:33)
[2024-03-22] MEDS: HYDROMORPHONE HCL 0.5 MG/0.5 ML INJ IV PRN (20:33)
[2024-03-22] MEDS ORDERED: droPERidol 5 MG/2 ML VIAL ONE (21:14)
[2024-03-22] MEDS: droPERidol 5 MG/2 ML VIAL IV PRN (21:20)
[2024-03-22 22:15] VITALS: O2SAT 97
[2024-03-22 23:00] VITALS: BMI 23.4
[2024-03-23 06:21] LABS: Absolute Basophils 0.1 K/uL (0-0.5); Absolute Lymphocytes (CBC) 2.1 K/uL (0.7-4.9); Absolute Monocytes 0.7 K/uL (0.1-1.3); Absolute Neutrophil 4.1 K/uL (1.8-8.0); Basophils % 1.1 % (0-1.3); Eosinophils % 0.3 % (0-4.4); Hematocrit 40.2 % (36.0-45.0); Hemoglobin 13.8 g/dL (12.0-15.0); Lymphocytes % 29.9 % (15.3-44.8); MCH 33.2 pg (27.0-35.0); MCHC 34.4 g/dL (32.0-36.0); MCV 96.6 fL (80-100); MPV 7.7 fL (7.6-11.3); Monocytes % 9.4 % (3.3-12.3); Neutrophils % 59.3 % (41.7-73.7); Nucleated Red Blood Cells % 0.1 % (0-0); Platelets 180 thou/uL (152-406); RBC Red Blood Cell Count 4.16 M/uL (3.86-4.86); Red Cell Distribution Width 13.7 % (12.1-15.2)
[2024-03-23 06:44] LABS: ALT/SGPT 16 U/L (13-56); Alkaline Phosphatase 80 U/L (45-117); Anion Gap 6.3 mEq/L (5.0-15.0); BUN Blood Urea Nitrogen 4 mg/dL (7-18); Bicarbonate 25 mEq/L (21-32); Bilirubin Total 0.4 mg/dL (0.2-1.0); Globulin 2.9 g/dL (2.3-3.5); Glomerular Filtration Rate 107 ml/min (=/>90); Glucose Level 101 mg/dL (74-106); HDL Cholesterol 51 mg/dL (40-60); LDL Cholesterol, Calculated 112 mg/dL (<130); LDL Cholesterol,Calc NonReport 112; Lipase 13 U/L (13-75); Magnesium 1.8 mg/dL (1.6-2.4); Potassium 3.3 mEq/L (3.5-5.1); Protein, Total 5.9 g/dL (6.4-8.2); Sodium Level 137 mEq/L (136-145)
[2024-03-23 06:45] LABS: AST/SGOT < 10 U/L (15-37); Bilirubin Direct < 0.2 mg/dL (0-0.2); Bilirubin Indirect, Calculated 0.2 mg/dL (0.2-0.8)
[2024-03-23] MEDS: FLU (Fluarix Triv) TS24-25(6MOS UP)/PF 45 MCG/0.5 ML Syringe IM ONE (07:15)
[2024-03-23] MEDS: PNEUMOCOCCAL VACCINE 0.5 ML IMVAC ONE (08:00)
[2024-03-23] MEDS: ENOXAPARIN 40 MG/0.4 ML SQ SCH (08:40)
[2024-03-23] MEDS: LOSARTAN POTASSIUM 50 MG TABLET PO SCH (08:40)
[2024-03-23] MEDS ORDERED: HYDROCODONE/APAP 10/325 TAB PO PRN (11:55)
[2024-03-23 17:27] VITALS: BP 137/66; TEMP 98.4
--- NOTE | 2024-03-23 17:41 | P.DS ---
Admission Date: 03/22/24 Discharge Date: 03/23/24 Disposition: ROUTINE DISCHARGE Discharge Condition: GOOD Reason for Admission: Intractable nausea and vomiting Brief History of Present Illness: Ms. Pool is a 69-year-old female with a past medical history of hypertension, reflux esophagitis, small bowel obstruction, gastroparesis with frequent episodes of nausea and vomiting. She presented to the emergency department secondary to low-grade fever x 2 episodes last p.m. and the initiation of significant nausea, vomiting, and diarrhea at 4 AM. She denies hematemesis or hematochezia/melena. In the past she has had some hyponatremia but today her sodium is 136, she is hemoconcentrated with an H&H of 16/48. 2+ ketones in her urine with a specific gravity greater than 1.030. We will admit her for rehydration, control of symptoms, and reevaluation of electrolytes. Hospital Course: Ms. Pool is feeling much better today. She was sitting up in bed this morning, able to answer questions, and we advanced her diet slowly. No vomiting, denies abdominal pain, and states she is going to follow-up with GI. She will be looking for one closer to home. Vital Signs/Physical Exam: Temp Pulse Resp BP Pulse Ox 98.4 F 75 18 137/66 97 03/23/24 16:00 03/23/24 16:00 03/23/24 16:00 03/23/24 16:00 03/23/24 16:00 General: Alert, In no apparent distress, Oriented x3 HEENT: Atraumatic, Normocephalic, PERRLA Neck: Supple Respiratory: Clear to auscultation bilaterally Cardiovascular: No edema, Normal pulses, Regular rate/rhythm Capillary refill: <2 Seconds Gastrointestinal: Normal bowel sounds, Soft and benign Musculoskeletal: No clubbing, No swelling Integumentary: No rashes Neurological: Normal speech, Normal tone, Normal affect Lymphatics: No axilla or inguinal lymphadenopathy External genitalia: Deferred Rectal: Deferred Laboratory Data at Discharge: WBC 6.90 thou/uL (4.3-10.9) 03/23/24 05:55 Hgb 13.8 g/dL (12.0-15.0) D 03/23/24 05:55 Hct 40.2 % (36.0-45.0) 03/23/24 05:55 Plt Count 180 thou/uL (152-406) 03/23/24 05:55 Sodium 137 mEq/L (136-145) 03/23/24 06:02 Potassium 3.3 mEq/L (3.5-5.1) L 03/23/24 06:02 BUN 4 mg/dL (7-18) L 03/23/24 06:02 Creatinine 0.41 mg/dL (0.55-1.02) L 03/23/24 06:02 Glucose 101 mg/dL (74-106) 03/23/24 06:02 Magnesium 1.8 mg/dL (1.6-2.4) 03/23/24 06:02 Total Bilirubin 0.4 mg/dL (0.2-1.0) 03/23/24 06:02 AST < 10 U/L (15-37) L 03/23/24 06:02 ALT 16 U/L (13-56) 03/23/24 06:02 Alkaline Phosphatase 80 U/L (45-117) 03/23/24 06:02 Triglycerides 100 mg/dL (<150) 03/23/24 06:02 Cholesterol 183 mg/dL (<200) 03/23/24 06:02 HDL Cholesterol 51 mg/dL (40-60) 03/23/24 06:02 Cholesterol/HDL Ratio 3.59 03/23/24 06:02 Lipase 13 U/L (13-75) 03/23/24 06:02 Home Medications: Fenofibrate 40 mg PO DAILY 09/27/22 Amlodipine [Norvasc*] 5 mg PO DAILY #30 tab 10/01/22 Hydrocodone 5/APAP 325 [Rocky 5/325*] 1 tab PO Q6H PRN #20 tab 10/01/22 Mag Hydrox/Al Hydrox/Simeth [Maalox Suspension] 15 ml PO TID PRN #355 ml 10/01/22 Pantoprazole [Protonix Tab*] 40 mg PO BID #60 tab 10/01/22 Gabapentin 800 mg PO TID 06/10/23 Losartan Potassium 50 mg PO DAILY 06/10/23 Metoclopramide HCl [Reglan] 5 mg PO AC #30 06/10/23 predniSONE [Prednisone*] 20 mg PO BID #11 tab 06/10/23 Ondansetron [Zofran] 4 mg PO Q6H PRN #20 tab 03/23/24 New Medications: Ondansetron [Zofran] 4 mg PO Q6H PRN #20 tab PRN Reason: Nausea / Vomiting Physician Discharge Instructions: Ms. Pool is feeling much better today. She was sitting up in bed this morning, able to answer questions, and we advanced her diet slowly. No vomiting, denies abdominal pain, and states she is going to follow-up with GI. She will be looking for one closer to home -DC IV and DC home -Follow-up with PCP in 1 to 2 weeks -Follow-up with [facility] in 1 to 2 weeks -Please call Dr. Escobar at [phone] if any questions regarding hospital stay -Please call nursing station at [phone] if any nursing or medication questions -Return to the emergency room if symptoms worsen Diet: Regular Activity: Fall precautions Followup: NONE,NONE [Primary Care Provider] - Farhad Vargas MD [ACTIVE - CAN ADMIT] - Sabas Maurer MD [ASSOCIATE-ACTIVE - CAN ADMIT] -
== END 2024-03-23 17:35 | disposition home or self-care (01) ==
LOC: ER 14:04 → ERHOLD 18:14 → 2ND 19:52
PROVIDERS: ADMIT Hospitalist; ATTEND Hospitalist
DX: R11.2 Nausea with vomiting, unspecified (principal); K21.00 Gastro-esophageal reflux disease with esophagitis, without bleeding; K31.84 Gastroparesis; E86.0 Dehydration; I10 Essential (primary) hypertension; E11.9 Type 2 diabetes mellitus without complications; E78.00 Pure hypercholesterolemia, unspecified; F17.210 Nicotine dependence, cigarettes, uncomplicated; Z88.5 Allergy status to narcotic agent
CPT/HCPCS: 85025 ×2; 81001; 80048; 36415; 83735; 80061; 80076; 83690 ×2; 80053; 87804 ×2; 74177; Q9967; J2550; J2470 ×2; J1171 ×3; J2405; J1790 ×2; J7120 ×2; J7030; 51702; 96361; 96374; 96375; 99285; G0378; J1650

== ENCOUNTER 2024-04-12 10:00 | Emergency (ER) | payer OTHER ==
--- OUTSIDE RECORDS SUMMARY | 2024-04-12 10:07 | XMS REPORT | Continuity of Care Document ---
Author Name Unknown Address [address] [facility] [address] [place] [address] [facility] Address [address] [facility] [address] [place] [address] Care Team Providers Care Mediator Name Role Phone Pcp, Patient Does Not Have A Primary Care Physic juan Doctor Unassigned, Mason Attending Clinician U Maegan Valdez MD Attending Clinician MAEGAN HEAD Attending Clinician Unavailabl e AMBREEN_FARHANA Attending Clinician Unavailable AMBREEN_DARRICKA Admitting Clinician Unavailable Payers Payer Name Policy Type Policy Number Effective Date Expirati on Date Source [facility] (MEDICARE REPLACEMENT O) [id number] 2022 00:00:00 Allergies, Adverse Reactions, Alerts Allergy Name Allergy Type Status Severity Reaction(s) Onset Date Inactive Date Treating Clinician Comments Source Sulfa (Sulfona mide Antibiot ics) Propensi ty to adverse reaction to drug Inactiv e 07-21 00:00: 00 Jaden Ponce NO KNOWN ALLERGIE S Drug Class Active [facility] Social History Social Habit Start Date Stop Date Quantity Comments Source Exposure to SARS-CoV-2 (event) 2022-09-27 00:00:00 2022-10-07 14:36:00 Not sure [facility] Sex Assigned At 1955 00:00:00 1955 00:00:00 [facility] Smoking Status Start Date Stop Date Source Tobacco smoking consumption unknown [facility] Medications Ordered Medication Name Filled Medication Name Start Date Stop Date Current Medication? Ordering Clinician Indication Dosage Frequency Signature (SIG) Comments Components Source olopatadine 0.2 % eye drops 2023-05 00:00: 00 Yes 1% Jaden Ponce promethazin [...] - 00:00: 00 Yes 1mg Jaden Ponce TRELEGY ELLIPTA 200-62.5-25 MCG/ACT AEPB - 00:00: 00 Yes Jaden Ponce gabapentin 800 [...] NOSTRIL TWICE DAILY. 08-03 00:00: 00 Yes [id number] Jaden Ponce INHALE 1 PUFF TWICE DAILY. 08-03 00:00: 00 Yes [id number] 5 Jaden Ponce TAKE 1 TABLET BY MOUTH DAILY 08-03 00:00: 00 Yes 10 Jaden Ponce TAKE 1 TABLET BY MOUTH 4 TIMES DAILY. 08-03 00:00: 00 Yes 800 Jaden Ponce TAKE 1 TABLET BY MOUTH DAILY 08-03 00:00: 00 Yes 50 aJden Ponce INHALE 2 PUFFS BY MOUTH EVERY 4 TO 6 HOURS NEEDED. 08-03 00:00: 00 Yes [id number] Jaden Ponce 1 CAP EVERY 8 HOURS NEEDED FOR COUGH 08-03 00:00: 00 09-30 00:00 :00 No 200 Jaden Ponce TAKE 2 TABLETS ON DAY 1 THEN TAKE 1 TABLET A DAY FOR 4 DAYS. 08-03 00:00: 00 09-30 00:00 :00 No 250 Jaden Ponce TAKE 5 ML EVERY 6 HOURS NEEDED FOR COUGH 08-03 00:00: 00 09-30 00:00 :00 No [id number] Jaden Ponce TAKE 1 TAB 3 TIMES [...] mg Jaden Ponce gabapentin 800 mg tablet 07-09 00:00: 00 Yes mg Jaden Ponce INHALE 2 PUFFS BY MOUTH EVERY 4 TO 6 HOURS NEEDED. 06-19 00:00: 00 09-30 00:00 :00 No [id number] Jaden Ponce losartan 50 mg tablet 06-18 [...] 06-18 00:00: 00 09-30 00:00 :00 No [id number] Jaden Ponce AMITRIPTYLI NE HYDROCHLORI DE 50 [...] TAKE 1 TABLET BY MOUTH DAILY 2022-05 2 00:00: 00 09-30 00:00 :00 No 50 Jaden Ponce PANTOPRAZOL E SOD DR 40 MG 2022-05 00:00: 00 Yes Jaden Ponce TAKE 1 TABLET BY MOUTH DAILY 2022-05 00:00: 00 09-30 00:00 :00 No 160 Jaden Ponce METRONIDAZO LE 500 MG 2022-05 00:00: 00 Yes Jaden Ponce GABAPENTIN 800 MG 2022-05 00:00: 00 Yes 800 Jaden Ponce TAKE 5 ML EVERY 4 TO 6 HOURS NEEDED FOR COUGH. 2022-05 00:00: 00 09-30 00:00 :00 No [id number] Jaden Ponce PANTOPRAZOL E SOD DR 40 MG 2022-05 00:00: 00 Yes Jaden Ponce LOSARTAN POTASSIUM 50 MG 2022-05 00:00: 00 Yes Jaden Ponce 1 CAP EVERY 8 HOURS NEEDED FOR COUGH 2022-05 0 00:00: 00 09-30 00:00 :00 No 200 Jaden Ponce INHALE 1 PUFF TWICE DAILY. 2022-05 0- 00:00: 00 09-30 00:00 :00 No [id number] 5 Jaden Ponce TAKE 5 ML EVERY 4 TO 6 HOURS NEEDED FOR COUGH. 2022-05 0- 00:00: 00 09-30 00:00 :00 No [id number] Jaden Ponce TAKE 2 TABS DAILY THE [...] TRELEGY ELLIPTA 200-62.5-25 01-15 00:00: 00 Yes [id number] Jaden Ponce TAKE 2 TABS DAILY THE FIRST 5 DAYS,THEN 1 TAB DAILY THE LAST 5 DAYS 01-15 00:00: 00 09-30 00:00 :00 No 20 Jaden Ponce USE 1 SPRAY IN EACH NOSTRIL TWICE DAILY. 01-15 00:00: 00 09-30 00:00 :00 No [id number] Jaden Ponce TAKE 1 TABLET TWICE DAILY WITH FOOD. 01-15 00:00: 00 09-30 00:00 :00 No [id number] Jaden Ponce INSTILL 2 DROPS INTO BOTH EYES ONCE DAILY. 01-15 00:00: 00 09-30 00:00 :00 No 2 Jaden Ponce TAKE 5 ML EVERY 4 TO 6 HOURS NEEDED FOR COUGH. 01-15 00:00: 00 09-30 00:00 :00 No [id number] Jaden Ponce TAKE 1 TABLET BY MOUTH [...] 8 HOURS NEEDED FOR COUGH 12-19 00:00: 09-30 00:00 :00 No 200 Jaden Ponce TAKE 5 ML EVERY 4 TO 6 HOURS NEEDED FOR COUGH. 8 00:00: 00 09-30 00:00 :00 No 197024 Jaden Ponce INHALE 2 PUFFS EVERY 4 TO 6 HOURS NEEDED. 12-19 00:00: 00 09-30 00:00 :00 No [id number] Jaden Ponec TAKE 1 TABLET BY MOUTH AT BEDTIME 12-19 00:00: 00 09-30 00:00 :00 No 10 Jaden Ponce TAKE 1 TABLET BY MOUTH DAILY 12-17 00:00: 00 09-30 00:00 :00 No 160 Jaden Ponce TAKE 1 TABLET BY MOUTH DAILY. 12-17 00:00: 00 09-30 00:00 :00 No 50 Jaden Ponce 1 TABLET BY MOUTH THREE [...] 10-30 00:00: 00 09-30 00:00 :00 No [id number] Jaden Ponce TAKE 1 TABLET BY MOUTH [...] 800 Jaden Ponce HYDROCODONE -ACETAMIN 10-325 MG -31 00:00: 00 Yes Jaden Ponce triamcinolo ne acetonide (KENALOG) injection 40 mg 10-07 21:45: 00 10-07 20:33 :00 No [id number] 9108 40mg [facility] TRAMADOL HCL 50 MG 10-07 00:00: 00 Yes Jaden Ponce traMADoL 50 mg tablet 10-07 00:00: 00 10-15 04:59 :00 No [id number] 50mg Take 1 tablet by mouth every 6 (six) hours as needed for Pain (scale 4-6) for up to 7 days. Indication s: acute pain [facility] TAKE 1 TABLET BY MOUTH EVERY DAY 10-01 00:00: 00 Yes Jaden Ponce HYDROCODONE -ACETAMIN 5-325 MG 10-01 00:00: 00 Yes Jaden Ponce amLODIPine 5 mg tablet 10-01 00:00: 00 Yes 5mg Take 1 tablet by mouth in the morning. [facility] NEOMYCIN-PO LYMYXIN-HC EAR SOLN 08-21 00:00: [...] 08-21 00:00: 00 09-30 00:00 :00 No [id number] Jaden Ponce INSTILL 3 DROPS IN BOTH EARS 3-4 TIMES DAILY. 08-21 00:00: 00 09-30 00:00 :00 No Jaden Ponce INHALE 2 PUFFS TWICE DAILY. 08-21 00:00: 00 09-30 00:00 :00 No [id number] Jaden Ponce TAKE 1 TABLET BY MOUTH AT BEDTIME 08-21 00:00: 00 09-30 00:00 :00 No 10 Jadenluna Ponce INHALE 2 PUFFS EVERY 4 TO 6 HOURS NEEDED. 08-21 00:00: 00 09-30 00:00 :00 No [id number] Jaden Ponce pantoprazol e 40 mg EC tablet 08-20 00:00: 00 [facility] MG 08-15 00:00: 00 Yes 20 Jaden Serafin Ponce ALBUTEROL HFA 90 MCG INHALER 08-15 00:00: 00 Yes 90 Jaden Ponce INHALE 2 PUFFS EVERY 4 TO 6 HOURS NEEDED. 08-15 00:00: 00 09-30 00:00 :00 No [id number] Jaden Ponce TAKE 5 ML EVERY 4 TO 6 HOURS NEEDED FOR COUGH. 08-15 00:00: 00 09-30 00:00 :00 No [id number] Jaden Serafin Ponce 1 CAP EVERY 8 HOURS NEEDED FOR COUGH 08-15 00:00: 00 09-30 00:00 :00 No 200 Jadenluna Ponce INHALE 2 PUFFS TWICE DAILY. 08-15 00:00: 00 09-30 00:00 :00 No [id number] Jaden Serafin Ponce TAKE 1 TABLET BY [...] Jaden Serafin Kris TAKE 1 TABLET DAILY. 07-04 00:00: 00 09-30 00:00 :00 No 160 Jadenluna Ponce TAKE 1 TABLET DAILY. 2-16 00:00: [...] - 00:00: 00 09-30 00:00 :00 No [id number] Jaden Ponce TAKE 1 TABLET BY MOUTH DAILY 1- 00:00: 00 09-30 00:00 :00 No 10 Jaden Ponce TAKE 1 TABLET BY MOUTH THREE TIMES A DAY NEEDED FOR PAIN 1 00:00: 00 Yes Jaden Ponce GABAPENTIN 800 MG 1- 00:00: 00 Yes Jaden Ponce ALBUTEROL HFA 90 MCG INHALER 2021-05 00:00: 00 Yes Jaden Ponce INHALE 2 PUFFS EVERY 4 TO 6 HOURS NEEDED. 2021-05 00:00: 00 09-30 00:00 :00 No [id number] Jaden Ponce TAKE 1 TABLET BY MOUTH EVERY DAY FOR BACK PAIN 2021-05 2- 00:00: 00 Yes Jaden Ponce METHYLPREDN ISOLONE 4 MG DOSEPK 2021-05 2- 00:00: 00 Yes Jaden Ponce PREDNISONE 20 MG 2021-05 2- 00:00: 00 Yes Jaden Ponce AZITHROMYCI N 250 MG 2021-05- 00:00: 00 Yes Jaden Ponce INHALE 2 PUFFS TWICE DAILY. 2021-05 2- 00:00: 00 09-30 00:00 :00 No [id number] Jaden Ponce Dose Unknown 2021-05 2- 00:00: 00 Yes 20 Jaden Ponce PREGABALIN 300 MG CAPSULE</Te xt> <Code> <Value>0022 [id number]</Va lue> <CodingSyst em>NDC</Cod ingSystem> </Code> 2021-05 2- 00:00: 00 Yes 300 Jaden Ponce Dose Unknown 2021-05 2- 00:00: 00 Yes Jaden Ponce Dose Unknown 2021-05 2- 00:00: 00 Yes Jaden Ponce Dose Unknown 2021-05 2- 00:00: 00 Yes Jaden Ponce Dose Unknown 2021-05 2- 00:00: 00 Yes Jaden Ponce PROAIR HFA 90 MCG INHALER</Te xt> <Code> <Value>[id number] [id number]</Va lue> <CodingSyst em>NDC</Cod ingSystem> </Code> 2021-05 2- 00:00: 00 Yes Jaden Ponce Dose Unknown 2021-05 2 00:00: 00 Yes Jaden Ponce AMOX-CLAV 875-125 MG TABLET</Nicolás t> <Code> <Value>0009 [id number]</Va lue> <CodingSyst em>NDC</Cod ingSystem> </Code&gt 2021-05 2- 00:00: 00 Yes Jaden Ponce HYDROCHLORO THIAZIDE 25 MG TAB</Text> <Code> <Value>0017 [id number]</Va lue> <CodingSyst em>NDC</Cod ingSystem> </Code& 2021-05 2- 00:00: 00 Yes 25 Jaden Ponce Dose Unknown 2021-05 2- 00:00: 00 Yes Jaden Ponce PREGABALIN 150 MG CAPSULE</Te xt> <Code> <Value>0022 [id number]</Va lue> <CodingSyst em>NDC</Cod ingSystem> </Code> 2021-05 2- 00:00: 00 Yes 150 Jaden Ponce TAKE 1 CAPSULE BY MOUTH THREE TIMES DAILY 2021-05 2- 00:00: 00 Yes 300 Jaden Ponce Dose Unknown 2021-05 2- 00:00: 00 Yes Jaden Ponce Dose Unknown 2021-05 2- 00:00: 00 Yes Jaden Ponce Dose Unknown 2021-05 2- 00:00: 00 No 20 TAKE 2 TABLETS ON DAY 1 THEN TAKE 1 TABLET A DAY FOR 4 DAYS. 2021-05 2 00:00: 00 No 250 PREGABALIN 300 MG CAPSULE</Te xt> <Code> <Value>0022 [id number]</Va lue> <CodingSyst em>NDC</Cod ingSystem> </Code> 2021-05 2 00:00: 00 No 300 Dose Unknown 2021-05 2 00:00: 00 No Dose Unknown 2021-05 00:00: 00 No Dose Unknown 2021-05 00:00: 00 No Dose Unknown 2021-05 00:00: 00 No INHALE 1 PUFF TWICE DAILY. 2021-05 00:00: 00 No [id number] 5 INHALE 2 PUFFS EVERY 4 TO 6 HOURS NEEDED. 2021-05 00:00: 00 No [id number] PROAIR HFA 90 MCG INHALER</Te xt> <Code> <Value>2169 [id number]</Va lue> <CodingSyst em>NDC</Cod ingSystem> </Code> 2021-05 2 00:00: 00 No Dose Unknown 2021-05 00:00: 00 No AMOX-CLAV 875-125 MG TABLET</Nicolás t> <Code> <Value>0009 [id number]</Va lue> <CodingSyst em>NDC</Cod ingSystem> </Code&gt 2021-05 00:00: 00 No HYDROCHLORO THIAZIDE 25 MG TAB</Text> <Code> <Value>0017 [id number]</Va lue> <CodingSyst em>NDC</Cod ingSystem> </Code& 2021-05- 00:00: 00 No 25 TAKE 1 TABLET AT BEDTIME. 2021-05 2- 00:00: 00 No 20 Dose Unknown 2021-05 2- 00:00: 00 No PREGABALIN 150 MG CAPSULE</Te xt> <Code> <Value>0022 [id number]</Va lue> <CodingSyst em>NDC</Cod ingSystem> </Code> 2021-05 00:00: 00 No 150 TAKE 5 ML DAILY AT BEDTIME. 2021-05 2 00:00: 00 No [id number] TAKE 1 TABLET DAILY. 2021-05 00:00: 00 [...] 2021-05 00:00: 00 09-30 00:00 :00 No [id number] 5 Jaden Serafin Ponce INHALE 2 PUFFS EVERY 4 TO 6 HOURS NEEDED. 2021-05 00:00: 00 09-30 00:00 :00 No [id number] Jaden Ponce TAKE 1 TABLET AT BEDTIME. 2021-05 00:00: 00 09-30 00:00 :00 No 20 Jaden Ponce TAKE 5 ML DAILY AT BEDTIME. 2021-05 00:00: 00 09-30 00:00 :00 No [id number] Jaden Ponce TAKE 1 TABLET DAILY. 2021-05 00:00: 00 09-30 00:00 :00 No 160 Jaden Ponce TAKE 1 TABLET 4 TIMES DAILY. 2021-05 00:00: 00 09-30 00:00 :00 No 800 Jaden Ponce INHALE 2 PUFFS TWICE DAILY. 2021-05 00:00: 00 09-30 00:00 :00 No [id number] Jaden Serafin Ponce TRELEGY ELLIPTA 200-62.5-25 2021-05 1-08 00:00: 00 Yes Jadenluna Ponce AZITHROMYCI N 250 MG 2021-05 0- 00:00: 00 Yes 250 Jaden Serafin Ponce TRELEGY ELLIPTA 200-62.5-25 2022-1 0-27 00:00: 00 Yes [id number] Jaden Ponce ATORVASTATI N 20 MG 2021-1 0-12 00:00: 00 Yes 20 Jaden Ponce HYDROCHLORO THIAZIDE 25 MG 2021-1 0-10 00:00: 00 Yes 25 Jaden Ponce GABAPENTIN 800 MG 2021-1 0-10 00:00: 00 Yes 800 Jaden Ponce PREDNISONE 20 MG 2021-1 0-10 00:00: 00 Yes 20 Jaden Ponce PREGABALIN 300 MG CAPSULE 2021-0 9-19 00:00: 00 Yes Jaden Ponce PREGABALIN [...] 1 TABLET BY MOUTH TWICE DAILY 0 15 00:00: 00 Yes 875 Jaden Ponce Dose Unknown 15 00:00: 00 Yes 250 Jaden Ponce &lt 2021-0 715 00:00: 00 Yes 300 Jaden Ponce PREGABALIN 150 MG CAPSULE 0 715 00:00: 00 Yes 150 Jaden Ponce azithromyci n 250 mg tablet 15 00:00: 00 No mg prednisone 20 mg tablet 0 715 00:00: 00 No mg Lyrica 150 mg capsule 0 715 00:00: 00 No 1mg TAKE 1 TABLET BY MOUTH TWICE DAILY 0 15 00:00: 00 No 875 Dose Unknown 715 00:00: 00 No 250 &lt 2021-0 7-15 00:00: 00 No 300 azithromyci n 250 mg tablet 0 715 00:00: 00 No mg prednisone 20 mg tablet 0 715 00:00: 00 No mg Lyrica 150 mg capsule 0 715 00:00: 00 No 1mg TAKE 1 TABLET BY MOUTH TWICE DAILY 0 15 00:00: 00 No 875 Dose Unknown 0 715 00:00: 00 No 250 &lt 2021-0 7-15 [...] Yes 600 Jaden Ponce Dose Unknown 2021-0 - 00:00: 00 Yes 250 Jaden Ponce pregabalin 300 mg capsule 2021-0 - 00:00: 00 No 1mg &lt 2-0 7-06 00:00: 00 No 20 TAKE 1 TABLET BY MOUTH FOUR TIMES DAILY 2021-0 - 00:00: 00 No 600 &lt 2022-0 7- 00:00: 00 No 300 Dose Unknown 2021-0 - 00:00: 00 No 250 pregabalin 300 mg [...] 7- 00:00: 00 No 600 &lt 2022-0 7- [...] 125 mg tablet 2-0 3-30 00:00: 00 Yes 1mg Jaden Damonfed DM 2 mg-30 mg-10 mg/5 mL oral [...] 2022-0 330 00:00: 00 No Dose Unknown 2-0 330 00:00: 00 No amoxicillin 875 mg-potassiu m clavulanate 125 mg tablet 2-0 330 00:00: 00 No 1mg Bromfed DM 2 mg-30 mg-10 mg/5 mL oral syrup 2-0 330 00:00: 00 No 10mg/5 mL Dose Unknown 2022-0 330 00:00: 00 No Dose Unknown 2-0 330 00:00: 00 No Dose Unknown 2-0 330 00:00: 00 No Dose Unknown 2-0 330 00:00: 00 No Dose Unknown 2022-0 3-07 [...] 00 No 1mg pregabalin 300 mg capsule 2-09 00:00: 00 No 1mg pregabalin 300 mg capsule 2-09 00:00: 00 No 1mg ProAir HFA [...] No 1mg pregabalin 300 mg capsule 2020-05 2-16 00:00: 00 No 1mg pregabalin 300 mg [...] tablet 2020-05 0-05 00:00: 00 Yes mg Jaden Ponce gabapentin 300 mg capsule 2020-05 0-05 [...] ProAir HFA 90 mcg/actuati on aerosol inhaler 8-06 00:00: 00 Yes 12mcg/a ctuatio obdulio Jaden Serafin Ponce amoxicillin 875 mg-potassiu jono clavulanate 125 mg tablet 8-06 00:00: 00 Yes 1mg Jadenluna Ponce gabapentin 600 mg tablet 8- 00:00: 00 Yes 1mg Jaden Ponce prednisone [...] mg tablet - 00:00: 00 No 1mg prednisone 20 mg tablet - 00:00: 00 No mg gabapentin 300 mg capsule - 00:00: 00 No 1mg gabapentin 600 mg tablet 10-05 00:00: 00 Yes 1mg Jaden Ponce gabapentin 300 mg capsule 5-20 00:00: 00 Yes 1mg Jaden Ponce gabapentin [...] inhalation - 00:00: 00 Yes 1mcg/ac tuation Jadenluna Ponce prednisone 20 mg tablet - 00:00: 00 Yes mg Jaden Ponce ipratropium 0.5 mg-albutero l 3 mg (2.5 mg base)/3 mL nebulizatio n soln - 00:00: 00 Yes 3mg base)/3 mL Jaden Ponce ProAir HFA 90 mcg/actuati on aerosol inhaler - 00:00: 00 No 12mcg/a ctuatio n Combivent Respimat 20 mcg-100 mcg/actuati on solution for inhalation - 00:00: 00 No 1mcg/ac tuation prednisone 20 mg tablet -04 00:00: 00 No mg ipratropium 0.5 mg-albutero [...] 01-19 00:00: 00 Yes 1mcg/ac tuation Jaden Pnoce Combivent Respimat 20 mcg-100 mcg/actuati on solution for inhalation 01-19 00:00: 00 Yes 1mcg/ac tuation Jaden Betancourt Kris Advair Diskus 250 mcg-50 mcg/dose powder for inhalation 01-19 00:00: 00 Yes 1mcg/do se Jaden Ponce gabapentin 600 mg tablet 01-19 00:00: 00 Yes 1mg Jadenluna Ponce gabapentin 300 mg capsule 01-19 00:00: 00 Yes 1mg Jaden Serafin Kris albuterol sulfate 1.25 mg/3 mL solution for [...] 00 No 1mg gabapentin 600 mg tablet 0 -14 00:00: 00 No 1mg gabapentin 300 mg [...] Systolic blood pressure 2022-10-07 20:05:00 133 mm[Hg] [facility] Diastolic blood pressure 2022-10-07 20:05:00 70 mm[Hg] [facility] Heart rate 2022-10-07 20:05:00 96 /min [facility] Body height 2022-10-07 20:05:00 152.4 cm [facility] Body weight 2022-10-07 20:05:00 69.854 kg [facility] BMI 2022-10-07 20:05:00 30.08 kg/m2 [facility] BP Systolic 2024-02-25 10:57:00 133 mm[Hg] Step [...] 2023-02-18 14:48:00 129 mm[Hg] Step hen F Kris BP Diastolic 2023-02-18 14:48:00 79 mm[Hg] Manny [...] BP Systolic 2021-11-30 11:14:00 137 mm[Hg] Step luna Ponce BP Diastolic 2021-11-30 11:14:00 78 mm[Hg] Manny Ponce Weight Measured 2021-11-30 11:14:00 144.20 pounds Jaden Ponce Height Measured 2021-11-30 11:14:00 60.00 inches Jaden Ponce Body Temperature 2021-11-30 11:14:00 98.00 degrees Jaden Ponce Heart Rate 2021-11-30 11:14:00 84.00 /min [...] EXTERNAL PROVIDER RECORDS 2022-10-21 05:01:00 Doctor Unassigned, [facility] RADIOLOGY DOCUMENTATION 2022-10-11 05:01:00 Doct or Unassigned, [facility] MEDICAL RELEASE/CLEARANCE FORMS 2022-10-09 05:01:00 Doctor Unassigned, [facility] Plan of Care Planned Activity Planned Date Details Comments Source Goal Plan of Care Note [code = 76140-1] Goal Plan of Care Note [code = 87328-0] Goal Plan of Care Note [code = 37575-4] Goal Plan of Care Note [code = 32178-7] Goal Plan of Care Note [code = 82386-3] Goal Plan of Care Note [code = 70955-2] Goal Plan of Care Note [code = 50901-5] Goal Plan of Care Note [code = 89098-1] Goal Plan of Care Note [code = 83019-9] Goal Plan of Care Note [code = 71328-9] Goal Plan of Care Note [code = 54776-0] Goal Plan of Care Note [code = 82283-7] Goal Plan of Care Note [code = 18758-9] Goal Plan of Care Note [code = 26220-8] Goal Plan of Care Note [code = 49943-0] Goal Plan of Care Note [code = 40850-7] Goal Plan of Care Note [code = 48891-9] Goal Plan of Care Note [code = 47037-1] Goal Plan of Care Note [code = 20339-2] Goal Plan of Care Note [code = 91318-9] Goal Plan of Care Note [code = 53510-4] Goal Plan of Care Note [code = 72490-1] Goal Plan of Care Note [code = 01829-8] Goal Plan of Care Note [code = 13708-4] Goal Plan of Care Note [code = 33760-1] Goal Plan of Care Note [code = 91493-4] Goal Plan of Care Note [code = 12369-9] Goal Plan of Care Note [code = 23934-1] Goal Plan of Care Note [code = 16454-0] Goal Plan of Care Note [code = 91464-0] Goal Plan of Care Note [code = 04665-2] Goal Plan of Care Note [code = 22851-0] Goal Plan of Care Note [code = 78017-4] Goal Plan of Care Note [code = 41446-6] Goal Plan of Care Note [code = 05102-2] Goal Plan of Care Note [code = 49196-0] Goal Plan of Care Note [code = 96488-2] Goal Plan of Care Note [code = 21516-2] Goal Plan of Care Note [code = 58049-0] Goal Plan of Care Note [code = 43658-9] Goal Plan of Care Note [code = 22393-0] Goal Plan of Care Note [code = 10595-6] Goal Plan of Care Note [code = 39379-2] Goal Plan of Care Note [code = 86134-9] Goal Plan of Care Note [code = 95312-2] Goal Plan of Care Note [code = 11055-3] Goal Plan of Care Note [code = 57054-3] Goal Plan of Care Note [code = 70653-3] Goal Plan of Care Note [code = 20191-1] Goal Plan of Care Note [code = 13701-2] Goal Plan of Care Note [code = 56059-9] Goal Plan of Care Note [code = 56797-1] Goal Plan of Care Note [code = 41728-8] Goal Plan of Care Note [code = 81099-0] Goal Plan of Care Note [code = 51347-3] Goal Plan of Care Note [code = 12748-4] Goal Plan of Care Note [code = 83812-8] Goal Plan of Care Note [code = 78006-3] Goal Plan of Care Note [code = 78242-1] Goal Plan of Care Note [code = 04891-9] Goal Plan of Care Note [code = 86486-8] Goal Plan of Care Note [code = 46903-1] Goal Plan of Care Note [code = 47525-3] Goal Plan of Care Note [code = 95203-7] Goal Plan of Care Note [code = 76209-6] Goal Plan of Care Note [code = 63764-1] Goal Plan of Care Note [code = 88444-7] Goal Plan of Care Note [code = 04637-9] Goal Plan of Care Note [code = 69997-9] Goal Plan of Care Note [code = 13030-4] Goal Plan of Care Note [code = 95448-2] Goal Plan of Care Note [code = 85315-0] Goal Plan of Care Note [code = 76993-6] Goal Plan of Care Note [code = 62540-6] Goal Plan of Care Note [code = 28806-7] Goal Plan of Care Note [code = 85918-2] Goal Plan of Care Note [code = 78312-5] Goal Plan of Care Note [code = 67525-8] Goal Plan of Care Note [code = 43480-2] Goal Plan of Care Note [code = 81626-5] Goal Plan of Care Note [code = 81076-4] Goal Plan of Care Note [code = 72111-4] Goal Plan of Care Note [code = 50198-2] Encounters Start Date/Time End Date/Time Encounter Type Admission Type Attending [facility] Care Department Encounter ID Source 2024-03-16 16:43:16 2024-03-16 16:43:16 Outpatient [facility] [id number] Jaden Betancourt Kris 2024-02-25 10:41:50 2024-02-25 10:41:50 Outpatient [facility] [id number] Jaden Betancourt Kris 2024-02-25 00:00:00 2024-02-25 00:00:00 Outpatient Visit [facility] [id number] Jaden Betancourt Kris 2024-02-06 13:53:09 2024-02-06 13:53:09 Outpatient [facility] [id number] Jaden Betancourt Kris 2024-02-06 00:00:00 2024-02-06 00:00:00 Outpatient Visit [facility] [id number] Jaden Ponce 2024-01-15 15:58:11 2024-01-15 15:58:11 Outpatient [facility] [id number] Jaden Ponce 2023-12-15 08:41:47 2023-12-15 08:41:47 Outpatient [facility] 728 Jaden Betancourt Kris 2023-11-13 00:00:00 2023-11-13 00:00:00 Outpatient Visit [facility] [id number] Jaden Betancourt Kris 2023-11-10 14:10:07 2023-11-10 14:10:07 Outpatient [facility] [id number] Jaden Betancourt Kris 2023-10-14 15:51:09 2023-10-14 15:51:09 Outpatient [facility] [id number] Jaden Betancourt Kris 2023-09-15 16:15:18 2023-09-15 16:15:18 Outpatient [facility] [id number] Jaden Betancourt [place] 2023-08-26 15:52:22 2023-08-26 15:52:22 Outpatient [facility]FA 9 Jaden Betancourt [place] 2023-08-14 09:36:17 2023-08-14 09:36:17 Outpatient [facility] [id number] Jaden Betancourt Kris 2023-07-14 14:28:32 2023-07-14 14:28:32 Outpatient [facility]FA SFA 6 Jaden Betancourt [place] 2023-06-18 10:02:18 2023-06-18 10:02:18 Outpatient [facility] [id number] Jaden Betancourt [place] 2023-06-17 17:18:38 2023-06-17 17:18:38 Outpatient [facility] SFA [id number] Jaden Betancourt [place] 2023-06-12 15:47:52 2023-06-12 15:47:52 Outpatient SFA [facility]FA [id number] Jaden Betancourt [place] 2023-04-28 14:22:48 2023-04-28 14:22:48 Outpatient [facility] [id number] Jaden Betancourt [place] 2023-03-19 16:04:06 2023-03-19 16:04:06 Outpatient [facility] [id number] Jaden Ponce 2023-02-27 13:54:38 2023-02-27 13:54:38 Outpatient [facility] [id number] Jaden Ponce 2023-02-18 14:41:08 2023-02-18 14:41:08 Outpatient [facility] [id number] Jaden Betancourt [place] 2023-01-30 17:52:20 2023-01-30 17:52:20 Outpatient [facility] [id number] Jaden Betancourt [place] 2023-01-14 12:11:29 2023-01-14 12:11:29 Outpatient [facility] [id number] Jaden Betancourt [place] 2022-12-11 17:36:37 2022-12-11 17:36:37 Outpatient [facility] [id number] Jaden Betancourt [place] 2022-10-21 00:00:00 2022-10-21 00:00:00 Orders Only Doctor Unassigned, [place] [address]840[address]114 350.1.13.10 4.2.7.2.686 [id number] [facility] 2022-10-15 00:00:00 2022-10-15 00:00:00 [facility]phone [facility] 1.2.840.114 350.1.13.10 4.2.7.2.686 [id number] [facility] 2022-10-11 00:00:00 2022-10-11 00:00:00 Orders Only Doctor Unassigned, [place] [address].2.840.114 350.1.13.10 4.2.7.2.686 [id number] [facility] 2022-10-11 00:00:00 2022-10-11 00:00:00 [facility] 1.0.114 350.1.13.10 4.2.7.2.686 [id number] [facility] 2022-10-09 00:00:00 2022-10-09 00:00:00 Orders Only Doctor Unassigned, Mason [facility] 1.840.114 350.1.13.10 4.2.7.2.686 [id number] [facility] 2022-10-09 00:00:00 2022-10-09 00:00:00 Telephone [facility] 1..114 350.1.13.10 4.2.7.2.686 [id number] [facility] 2022-10-07 14:30:00 2022-10-07 16:47:40 Outpatient R MAEGAN HEAD [facility] [id number] [facility] 2022-10-07 14:30:00 2022-10-07 16:47:40 Office Visit Maegan Head [facility] 1..114 350.1.13.10 4.2.7.2.686 [id number] [facility] 2022-10-07 00:00:00 2022-10-07 00:00:00 Telephone Maegan Head [facility] 1..114 350.1.13.10 [id number] [facility] 2022-10-02 00:00:00 2022-10-02 00:00:00 Telephone Maegan Head [facility] [id number] [facility] 2022-08-20 13:43:24 2022-08-20 13:43:24 Outpatient SFA SFA [id number] Jaden Ponce 2022-05-29 14:07:16 2022-05-29 14:07:16 Outpatient SFA SFA 0111 Jaden Ponce 2022-04-30 15:19:29 2022-04-30 15:19:29 Outpatient SFA SFA 1213 Jaden Ponce 2022-04-30 00:00:00 2022-04-30 00:00:00 Outpatient Visit [id number] -[id number]-[id number]-a [id number] 2022-03-27 00:00:00 2022-03-27 00:00:00 Outpatient DMG DMG [id number] [facility] 2022-03-26 09:54:48 2022-03-26 09:54:48 Outpatient SFA SFA 1108 Jaden Ponce 2022-03-26 00:00:00 2022-03-26 00:00:00 Outpatient Visit [id number]-[id number] 2022-02-25 11:04:30 2022-02-25 11:04:30 Outpatient SFA SFA [id number] 1010 Jaden Ponce 2022-02-25 00:00:00 2022-02-25 00:00:00 Outpatient Visit [id number] 2021-11-30 00:00:00 2021-11-30 00:00:00 Outpatient Visit [id number]- [id number] -[id number] [id number]-a [id number] e05aeb 2021-11-27 04:42:00 2021-11-27 04:42:00 Outpatient MONIQUE_[facility]ON [facility] [id number] 0712 Qian arrington [facility] h Program Results Test Description Test Time Test Comments Results Result Co mments Source TSH, THIRD [id number] 07:15:39* Test Item Value Reference Range Interpretation Comme nts TSH, THIRD GENERATION (test code = 2821) 0.265 UIU/ML 0.400-4.100 L C-REACTIVE [id number] 05:45:48* Test Item Value Reference Range Interpretation Comme nts C-REACTIVE PROTEIN (test cod e = 3513) <0.3 MG/DL <0.5 COMPREHENSIVE METABOLIC [id number] 05:45:07* Test Item Value Reference Range Interpretation Comme nts GLUCOSE (test code = 2217) 178 MG/DL 70-99 H BUN (test code = 2208) 15 MG/DL 8-23 CREATININE (test code = 2214) 0.47 MG/DL 0.60-1.30 L eGFR (2020 CKD-EPI) (test code = 83602) 104 ML/MIN/1.73 >60 CALC BUN/CREAT (test code [...] code = 2219) 17 U/L 5-40 HEMOGLOBIN [id number] 04:57:52* Test Item Value Reference Range Interpretation Comme nts HEMOGLOBIN A1c (test code = 76141) 5.8 % 4.2-5.6 H [employer] GUIDELINES FOR HGB A1C: [...] CONSIDER ALTERNATE TESTING OR LABORATORY CONSULTATION. SEDIMENTATION [id number] 04:22:25* Test Item Value Reference Range Interpretation Comme nts SEDIMENTATION RATE (test cod e = 1017) 2 MM/HOUR 0-20 CBC W/AUTO DIFF WITH [id number] 02:36:55* Test Item Value Reference Range Interpretation [...] = 1065) 0.0 /100 WBC'S See_Comment [[employer]] The system which generated this result [...] H ABS NUCLEATED RBCS (test code = 10755) 0.00 K/UL 0.00-0.11 HEMOGLOBIN [id number] 00:00:00* Test Item Value Reference Range Interpretation Comme nts HEMOGLOBIN A1c (test code = 57027) 5.8 % Jaden F KrisCOMPREHENSIVE METABOLIC [id number] 00:00:00* Test Item Value Reference Range Interpretation Comme nts GLUCOSE (test code = 2217) 178 MG/DL BUN (test code = 2208) 15 MG/DL CREATININE (test code = 2214) 0.47 MG/DL eGFR (2020 CKD-EPI) (test code = 74349) 104 ML/MIN/1.73 CALC BUN/CREAT (test code = [...] = 2219) 17 U/L Jaden May, THIRD [id number] 00:00:00* Test Item Value Reference Range Interpretation Comme nts TSH, THIRD GENERATION (test code = 2821) 0.265 UIU/ML Jaden PonceSEDIMENTATION [id number] 00:00:00* Test Item Value Reference Range Interpretation Comme nts SEDIMENTATION RATE (test cod e = 1017) 2 MM/HOUR Jaden PonceC-REACTIVE [id number] 00:00:00* Test Item Value Reference Range Interpretation Comme nts C-REACTIVE PROTEIN (test cod e = 3513) <0.3 MG/DL Jaden PonceVITAMIN D, 25 [id number] 00:00:00* Test Item Value Reference Range Interpretation Comme nts VITAMIN D, 25 OH (test code = 4958) 34 NG/ML Jaden PonceCBC W/AUTO [id number] 00:00:00* Test Item Value Reference Range Interpretation [...] ABS NUCLEATED RBCS (test cod e = 56896) 0.00 K/UL Jaden PonceHEMOGLOBIN [id number] 00:00:00* Test Item Value Reference Range Interpretation Comme nts HEMOGLOBIN A1c (test code = 64308) 5.8 % Jaden PonceCOMPREHENSIVE METABOLIC [id number] 00:00:00* Test Item Value Reference Range Interpretation Comme nts GLUCOSE (test code = 2217) 178 MG/DL BUN (test code = 2208) 15 MG/DL CREATININE (test code = 2214) 0.47 MG/DL eGFR (2020 CKD-EPI) (test code = 10614) 104 ML/MIN/1.73 CALC BUN/CREAT (test code = [...] = 2219) 17 U/L Jaden PonceTSH, THIRD [id number] 00:00:00* Test Item Value Reference Range Interpretation Comme nts TSH, THIRD GENERATION (test code = 2821) 0.265 UIU/ML Jaden PonceSEDIMENTATION [id number] 00:00:00* Test Item Value Reference Range Interpretation Comme nts SEDIMENTATION RATE (test cod e = 1017) 2 MM/HOUR Jaden PonceC-REACTIVE [id number] 00:00:00* Test Item Value Reference Range Interpretation Comme adrián C-REACTIVE PROTEIN (test cod e = 3513) <0.3 MG/DL Jaden PonceVITAMIN D, 25 [id number] 00:00:00* Test Item Value Reference Range Interpretation Comme adrián VITAMIN D, 25 OH (test code = 4958) 34 NG/ML Jaden PonceCBC W/AUTO [id number] 00:00:00* Test Item Value Reference Range Interpretation [...] ABS NUCLEATED RBCS (test cod e = 41113) 0.00 K/UL Jaden PonceHEMOGLOBIN [id number] 00:00:00* Test Item Value Reference Range Interpretation Comme adrián HEMOGLOBIN A1c (test code = 10989) 5.8 % Jaden PonceCOMPREHENSIVE METABOLIC [id number] 00:00:00* Test Item Value Reference Range Interpretation Comme nts GLUCOSE (test code = 7) 178 MG/DL BUN (test code = 2207) 15 MG/DL CREATININE (test code = 2214) 0.47 MG/DL eGFR (2020 CKD-EPI) (test code = 22738) 104 ML/MIN/1.73 CALC BUN/CREAT (test code = 2235) 32 RATIO SODIUM (test code = 223) 138 MEQ/L POTASSIUM (test code = 2228) [...] = 2219) 17 U/L Jaden PonceTSH, THIRD [id number] 00:00:00* Test Item Value Reference Range Interpretation Comme nts TSH, THIRD GENERATION (test code = 2821) 0.265 UIU/ML Jaden PonceSEDIMENTATION [id number] 00:00:00* Test Item Value Reference Range Interpretation Comme nts SEDIMENTATION RATE (test cod e = 1017) 2 MM/HOUR Jaden PonceC-REACTIVE [id number] 00:00:00* Test Item Value Reference Range Interpretation Comme nts C-REACTIVE PROTEIN (test cod e = 3513) <0.3 MG/DL Jaden PonceVITAMIN D, 25 [id number] 00:00:00* Test Item Value Reference Range Interpretation Comme nts VITAMIN D, 25 OH (test code = 4958) 34 NG/ML Jaden PonceCBC W/AUTO [id number] 00:00:00* Test Item Value Reference Range Interpretation [...] ABS NUCLEATED RBCS (test cod e = 02595) 0.00 K/UL Jaden Betancourt AustinLIPID [id number] 06:45:40* Test Item Value Reference Range Interpretation [...] SPECIMENS. FOR MOREINFORMATION, SEE CLIENT ANNOUNCEMENT AT [email or web address] RISK RATIO LDL/HDL (test code = 223) 1.58 RATIO <3.22 COMPREHENSIVE METABOLIC [id number] 06:45:40* Test Item Value Reference Range Interpretation Comme nts GLUCOSE (test code = 7) 185 MG/DL 70-99 H BUN (test code = 2207) 10 MG/DL 8-23 CREATININE (test code = 2213) 0.55 MG/DL 0.60-1.30 L eGFR (2020 CKD-EPI) (test code = 28809) 101 ML/MIN/1.73 >60 CALC BUN/CREAT (test code = 2235) 18 RATIO 6-28 SODIUM (test code = 2230) 134 MEQ/L 133-146 POTASSIUM (test code = 2228) 3.5 MEQ/L 3.5-5.4 CHLORIDE (test code = 5) 94 MEQ/L 95-107 L CARBON DIOXIDE (test code = 6) 23 MEQ/L 19-31 CALCIUM (test code = 220) 10.0 MG/DL [...] as normal/abnormal. ALKALINE PHOSPHATASE (test code = 4) 101 U/L 40-142 AST (test code = 2218) 15 U/L 9-40 ALT (test code = 2219) 17 U/L 5-40 [facility] has impo rtant pathology staff changes effective 07/17/2022. New pathology staff will provide uninterrupted, excellent patient care and clinical consultation. See URL: [email or web address] Imaging/patho logy-[email or web address]. UNLESS OTHERWISE INDICATED, ALL TESTING PERFORMED AT [facility] [address] [place] [address] ENGINEERING INTERN: JOEY SILVA M.D. [place] NUMBER [id number] [facility] [place]. [id number] HEMOGLOBIN [id number] 03:45:25* Test Item Value Reference Range Interpretation Comme nts HEMOGLOBIN A1c (test code = 33801) 6.1 % 4.2-5.6 H [employer] GUIDELINES FOR HGB A1C: [...] OR LABORATORY CONSULTATION. CBC W/AUTO DIFF WITH [id number] 02:39:50* Test Item Value Reference Range Interpretation [...] = 1065) 0.0 /100 WBC'S See_Comment [[employer]] The system which generated this result [...] H ABS NUCLEATED RBCS (test code = 32814) 0.00 K/UL 0.00-0.11 HEMOGLOBIN [id number] 00:00:00* Test Item Value Reference Range Interpretation Comme nts HEMOGLOBIN A1c (test code = 64402) 6.1 % Jaden Betancourt KrisLIPID [id number] 00:00:00* Test Item Value Reference Range Interpretation Comme nts CHOLESTEROL (test code = 2210) 219 MG/DL TRIGLYCERIDES (test code = 2232) 85 MG/DL HDL CHOLESTEROL (test code = 2220) 78 MG/DL CALC LDL CHOL (test code = 2237) 123 MG/DL RISK RATIO LDL/HDL (test cod e = 2238) 1.58 RATIO Jaden PonceCOMPREHENSIVE METABOLIC [id number] 00:00:00* Test Item Value Reference Range Interpretation Comme nts GLUCOSE (test code = 2217) 185 MG/DL BUN (test code = 2208) 10 MG/DL CREATININE (test code = 2214) 0.55 MG/DL eGFR (2020 CKD-EPI) (test code = 99926) 101 ML/MIN/1.73 CALC BUN/CREAT (test code = [...] = 2219) 17 U/L Jaden PonceCBC W/AUTO [id number] 00:00:00* Test Item Value Reference Range Interpretation [...] ABS NUCLEATED RBCS (test cod e = 38249) 0.00 K/UL Jaden PonceHEMOGLOBIN [id number] 00:00:00* Test Item Value Reference Range Interpretation Comme nts HEMOGLOBIN A1c (test code = 16064) 6.1 % Jaden PonceLIPID [id number] 00:00:00* Test Item Value Reference Range Interpretation Comme nts CHOLESTEROL (test code = 2210) 219 MG/DL TRIGLYCERIDES (test code = 2232) 85 MG/DL HDL CHOLESTEROL (test code = 2220) 78 MG/DL CALC LDL CHOL (test code = 2237) 123 MG/DL RISK RATIO LDL/HDL (test cod e = 2238) 1.58 RATIO Jaden PonceCOMPREHENSIVE METABOLIC [id number] 00:00:00* Test Item Value Reference Range Interpretation Comme nts GLUCOSE (test code = 2217) 185 MG/DL BUN (test code = 2208) 10 MG/DL CREATININE (test code = 2214) 0.55 MG/DL eGFR (2020 CKD-EPI) (test code = 62041) 101 ML/MIN/1.73 CALC BUN/CREAT (test code = [...] (test code = 2219) 17 U/L Jaden Betancourt KrisCBC W/AUTO [id number] 00:00:00* Test Item Value Reference Range Interpretation [...] ABS NUCLEATED RBCS (test cod e = 44564) 0.00 K/UL Jaden PonceHEMOGLOBIN [id number] 00:00:00* Test Item Value Reference Range Interpretation Comme nts HEMOGLOBIN A1c (test code = 19618) 6.1 % Jaden PonceLIPID [id number] 00:00:00* Test Item Value Reference Range Interpretation Comme nts CHOLESTEROL (test code = 2210) 219 MG/DL TRIGLYCERIDES (test code = 2232) 85 MG/DL HDL CHOLESTEROL (test code = 2220) 78 MG/DL CALC LDL CHOL (test code = 2237) 123 MG/DL RISK RATIO LDL/HDL (test cod e = 2238) 1.58 RATIO Jaden PonceCOMPREHENSIVE METABOLIC [id number] 00:00:00* Test Item Value Reference Range Interpretation Comme nts GLUCOSE (test code = 2217) 185 MG/DL BUN (test code = 2208) 10 MG/DL CREATININE (test code = 2214) 0.55 MG/DL eGFR (2020 CKD-EPI) (test code = 96220) 101 ML/MIN/1.73 CALC BUN/CREAT (test code = [...] (test code = 2219) 17 U/L Jaden PoncePSYCHIATRIC W/AUTO [id number] 00:00:00* Test Item Value Reference Range Interpretation [...] ABS NUCLEATED RBCS (test cod e = 25069) 0.00 K/UL Jaden F AustinOCCULT BLD,FECAL,IMMUNOASSAY [id number] 15:52:05* Test Item Value Reference Range Interpretation Comme nts OCCULT BLD, FECAL (test code = 85693) NEGATIVE NEGATIVE [facility] has important pathology staff changes effective 07/17/2022. New pathology staff will provide uninterrupted, excellent patient care and clinical consultation. See URL: [email or web address]. UNLESS OTHERWISE INDICATED, ALL TESTING PERFORMED AT [facility] [address] [place] [address] CLIA: [id number], CAP: [id number] OCCULT BLD,FECAL,IMMUNOASSAY [id number] 00:00:00* Test Item Value Reference Range Interpretation Comme nts OCCULT BLD, FECAL (test code = 15623) NEGATIVE Jaden PonceOCCULT BLD,FECAL,IMMUNOASSAY [id number] 00:00:00* Test Item Value Reference Range Interpretation Comme nts OCCULT BLD, FECAL (test code = 04516) NEGATIVE Jaden PonceOCCULT BLD,FECAL,IMMUNOASSAY [id number] 00:00:00* Test Item Value Reference Range Interpretation Comme nts OCCULT BLD, FECAL (test code = 55861) NEGATIVE Jaden ConleyH, THIRD [id number] 06:49:25* Test Item Value Reference Range Interpretation Comme adrián TSH, THIRD GENERATION (test code = 2821) 1.600 UIU/ML 0.400-4.100 [id number] 06:45:12* Test Item Value Reference Range Interpretation Comme nts NT-proBNP (test code = 07794) <50 PG/ML SEE BELOW If NT-ProBNP is less than 300 PG/ML, heart failure is unlikely for allages. Age.................Heart Failure Likely <50 Years...........>=450 PG/ML 50-75 Years.........>=900 PG/ML > 75 Years..........>=1800 PG/ML Methodology: Alyse Kimani [employer]chem[employer]ense Immunoassay UNLESS OTHERWISE INDICATED, ALL TESTING PERFORMED [facility] [address] [place] [address] ENGINEERING INTERN: ELIAS ESPANA M.D. CLIA NUMBER [id number] [facility] [place] [id number] COMPREHENSIVE METABOLIC [id number] 04:56:47* Test Item Value Reference Range Interpretation Comme nts GLUCOSE (test code = 7) 137 MG/DL 70-99 H BUN (test code = 2207) 12 MG/DL 8-23 CREATININE (test code = 2213) 0.60 MG/DL 0.60-1.30 eGFR (2020 CKD-EPI) (test code = 25520) 99 ML/MIN/1.73 >60 CALC BUN/CREAT (test code = 2234) 20 RATIO 6-28 SODIUM (test code = 223) 143 MEQ/L 133-146 POTASSIUM (test code = 2228) 4.3 MEQ/L 3.5-5.4 CHLORIDE (test code = 2215) 105 MEQ/L 95-107 CARBON DIOXIDE (test code = 2206) 25 MEQ/L 19-31 CALCIUM (test code = [...] code = 2219) 11 U/L 5-40 LIPID [id number] 04:56:47* Test Item Value Reference Range Interpretation [...] SPECIMENS. FOR MOREINFORMATION, SEE CLIENT ANNOUNCEMENT AT [email or web address] RISK RATIO LDL/HDL (test code = 2238) 2.59 RATIO <3.22 HEMOGLOBIN [id number] 04:00:46* Test Item Value Reference Range Interpretation Comme nts HEMOGLOBIN A1c (test code = 53783) 5.9 % 4.2-5.6 H CBC W/AUTO DIFF WITH [id number] 02:37:32* Test Item Value Reference Range Interpretation [...] = 1065) 0.0 /100 WBC'S See_Comment [[employer]] The system which generated this result [...] 0.00-0.10 ABS NUCLEATED RBCS (test code = 44301) 0.00 K/UL 0.00-0.11 CBC W/AUTO [id number] 00:00:00* Test Item Value Reference Range Interpretation [...] ABS NUCLEATED RBCS (test cod e = 29580) 0.00 K/UL Jaden PonceCOMPREHENSIVE METABOLIC [id number] 00:00:00* Test Item Value Reference Range Interpretation Comme nts GLUCOSE (test code = 2217) 137 MG/DL BUN (test code = 2208) 12 MG/DL CREATININE (test code = 2214) 0.60 MG/DL eGFR (2020 CKD-EPI) (test co de = 45126) 99 ML/MIN/1.73 CALC BUN/CREAT (test code = [...] code = 2219) 11 U/L Jaden PonceLIPID [id number] 00:00:00* Test Item Value Reference Range Interpretation Comme nts CHOLESTEROL (test code = 2210) 236 MG/DL TRIGLYCERIDES (test code = 2232) 274 MG/DL HDL CHOLESTEROL (test code = 2220) 54 MG/DL CALC LDL CHOL (test code = 2237) 140 MG/DL RISK RATIO LDL/HDL (test cod e = 2238) 2.59 RATIO Jaden PonceTSH, THIRD [id number] 00:00:00* Test Item Value Reference Range Interpretation Comme adrián TSH, THIRD GENERATION (test code = 2821) 1.600 UIU/ML Jaden PonceJtxesgNG-[id number] 00:00:00* Test Item Value Reference Range Interpretation Comme nts NT-proBNP (test code = 92627) <50 PG/ML Jaden PonceHEMOGLOBIN [id number] 00:00:00* Test Item Value Reference Range Interpretation Comme nts HEMOGLOBIN A1c (test code = 86054) 5.9 % Jaden PonceCBC W/AUTO [id number] 00:00:00* Test Item Value Reference Range Interpretation [...] ABS NUCLEATED RBCS (test cod e = 66744) 0.00 K/UL Jaden PonceCOMPREHENSIVE METABOLIC [id number] 00:00:00* Test Item Value Reference Range Interpretation Comme nts GLUCOSE (test code = 2217) 137 MG/DL BUN (test code = 2208) 12 MG/DL CREATININE (test code = 2214) 0.60 MG/DL eGFR (2020 CKD-EPI) (test co de = 79709) 99 ML/MIN/1.73 CALC BUN/CREAT (test code = [...] code = 2219) 11 U/L Jaden PonceLIPID [id number] 00:00:00* Test Item Value Reference Range Interpretation Comme nts CHOLESTEROL (test code = 2210) 236 MG/DL TRIGLYCERIDES (test code = 2232) 274 MG/DL HDL CHOLESTEROL (test code = 2220) 54 MG/DL CALC LDL CHOL (test code = 2237) 140 MG/DL RISK RATIO LDL/HDL (test cod e = 2238) 2.59 RATIO Jaden PonceTSH, THIRD [id number] 00:00:00* Test Item Value Reference Range Interpretation Comme adrián TSH, THIRD GENERATION (test code = 2821) 1.600 UIU/ML Jaden PonceShgcsyAE-[id number] 00:00:00* Test Item Value Reference Range Interpretation Comme nts NT-proBNP (test code = 81320) <50 PG/ML Jaden PonceHEMOGLOBIN [id number] 00:00:00* Test Item Value Reference Range Interpretation Comme nts HEMOGLOBIN A1c (test code = 70944) 5.9 % Jaden PonceCBC W/AUTO [id number] 00:00:00* Test Item Value Reference Range Interpretation [...] ABS NUCLEATED RBCS (test cod e = 43712) 0.00 K/UL Jaden PonceCOMPREHENSIVE METABOLIC [id number] 00:00:00* Test Item Value Reference Range Interpretation Comme nts GLUCOSE (test code = 2217) 137 MG/DL BUN (test code = 2208) 12 MG/DL CREATININE (test code = 2214) 0.60 MG/DL eGFR (2020 CKD-EPI) (test co de = 30170) 99 ML/MIN/1.73 CALC BUN/CREAT (test code = [...] code = 2219) 11 U/L Jaden PonceLIPID [id number] 00:00:00* Test Item Value Reference Range Interpretation Comme nts CHOLESTEROL (test code = 2210) 236 MG/DL TRIGLYCERIDES (test code = 2232) 274 MG/DL HDL CHOLESTEROL (test code = 2220) 54 MG/DL CALC LDL CHOL (test code = 2237) 140 MG/DL RISK RATIO LDL/HDL (test cod e = 2238) 2.59 RATIO Jaden PonceTSH, THIRD [id number] 00:00:00* Test Item Value Reference Range Interpretation Comme adrián TSH, THIRD GENERATION (test code = 2821) 1.600 UIU/ML Jaden PonceOkdxjcPU-[id number] 00:00:00* Test Item Value Reference Range Interpretation Comme adrián NT-proBNP (test code = 95567) <50 PG/ML Jaden PonceHEMOGLOBIN [id number] 00:00:00* Test Item Value Reference Range Interpretation Comme nts HEMOGLOBIN A1c (test code = 34257) 5.9 % Jaden PonceHEMOGLOBIN [id number] 00:00:00* Test Item Value Reference Range Interpretation Comme adrián HEMOGLOBIN A1c (test code = 82400) 5.9 % CBC W/AUTO [id number] 00:00:00* Test Item Value Reference Range Interpretation [...] ABS NUCLEATED RBCS (test cod e = 72681) 0.00 K/UL COMPREHENSIVE METABOLIC [id number] 00:00:00* Test Item Value Reference Range Interpretation Comme nts GLUCOSE (test code = 2217) 137 MG/DL BUN (test code = 2208) 12 MG/DL CREATININE (test code = 2214) 0.60 MG/DL eGFR (2020 CKD-EPI) (test co de = 34745) 99 ML/MIN/1.73 CALC BUN/CREAT (test code = [...] (test code = 2219) 11 U/L LIPID [id number] 00:00:00* Test Item Value Reference Range Interpretation Comme nts CHOLESTEROL (test code = 2210) 236 MG/DL TRIGLYCERIDES (test code = 2232) 274 MG/DL HDL CHOLESTEROL (test code = 2220) 54 MG/DL CALC LDL CHOL (test code = 2237) 140 MG/DL RISK RATIO LDL/HDL (test cod e = 2238) 2.59 RATIO TSH, THIRD [id number] 00:00:00* Test Item Value Reference Range Interpretation Comme nts TSH, THIRD GENERATION (test code = 2821) 1.600 UIU/ML [id number] 00:00:00* Test Item Value Reference Range Interpretation Comme nts NT-proBNP (test code = 06614) <50 PG/ML HEMOGLOBIN [id number] 00:00:00* Test Item Value Reference Range Interpretation Comme nts HEMOGLOBIN A1c (test code = 93738) 5.9 % CBC W/AUTO [id number] 00:00:00* Test Item Value Reference Range Interpretation [...] ABS NUCLEATED RBCS (test cod e = 29097) 0.00 K/UL COMPREHENSIVE METABOLIC [id number] 00:00:00* Test Item Value Reference Range Interpretation Comme nts GLUCOSE (test code = 2217) 137 MG/DL BUN (test code = 2208) 12 MG/DL CREATININE (test code = 2214) 0.60 MG/DL eGFR (2020 CKD-EPI) (test co de = 62613) 99 ML/MIN/1.73 CALC BUN/CREAT (test code = [...] (test code = 2219) 11 U/L LIPID [id number] 00:00:00* Test Item Value Reference Range Interpretation Comme nts CHOLESTEROL (test code = 2210) 236 MG/DL TRIGLYCERIDES (test code = 2232) 274 MG/DL HDL CHOLESTEROL (test code = 2220) 54 MG/DL CALC LDL CHOL (test code = 2237) 140 MG/DL RISK RATIO LDL/HDL (test cod e = 2238) 2.59 RATIO TSH, THIRD [id number] 00:00:00* Test Item Value Reference Range Interpretation Comme nts TSH, THIRD GENERATION (test code = 2821) 1.600 UIU/ML [id number] 00:00:00* Test Item Value Reference Range Interpretation Comme nts NT-proBNP (test code = 47194) <50 PG/ML HEMOGLOBIN [id number] 00:00:00* Test Item Value Reference Range Interpretation Comme nts HEMOGLOBIN A1c (test code = 25319) 5.9 % CBC W/AUTO [id number] 00:00:00* Test Item Value Reference Range Interpretation [...] ABS NUCLEATED RBCS (test cod e = 87853) 0.00 K/UL COMPREHENSIVE METABOLIC [id number] 00:00:00* Test Item Value Reference Range Interpretation Comme nts GLUCOSE (test code = 2217) 137 MG/DL BUN (test code = 2208) 12 MG/DL CREATININE (test code = 2214) 0.60 MG/DL eGFR (2020 CKD-EPI) (test co de = 08615) 99 ML/MIN/1.73 CALC BUN/CREAT (test code = [...] (test code = 2219) 11 U/L LIPID [id number] 00:00:00* Test Item Value Reference Range Interpretation Comme nts CHOLESTEROL (test code = 2210) 236 MG/DL TRIGLYCERIDES (test code = 2232) 274 MG/DL HDL CHOLESTEROL (test code = 2220) 54 MG/DL CALC LDL CHOL (test code = 2237) 140 MG/DL RISK RATIO LDL/HDL (test cod e = 2238) 2.59 RATIO TSH, THIRD [id number] 00:00:00* Test Item Value Reference Range Interpretation Comme nts TSH, THIRD GENERATION (test code = 2821) 1.600 UIU/ML [id number] 00:00:00* Test Item Value Reference Range Interpretation Comme nts NT-proBNP (test code = 72987) <50 PG/ML HEMOGLOBIN [id number] 00:00:00* Test Item Value Reference Range Interpretation Comme nts HEMOGLOBIN A1c (test code = 23284) 5.9 % CBC W/AUTO [id number] 00:00:00* Test Item Value Reference Range Interpretation [...] ABS NUCLEATED RBCS (test cod e = 27362) 0.00 K/UL COMPREHENSIVE METABOLIC [id number] 00:00:00* Test Item Value Reference Range Interpretation Comme nts GLUCOSE (test code = 2217) 137 MG/DL BUN (test code = 2208) 12 MG/DL CREATININE (test code = 2214) 0.60 MG/DL eGFR (2020 CKD-EPI) (test co de = 84849) 99 ML/MIN/1.73 CALC BUN/CREAT (test code = [...] (test code = 2219) 11 U/L LIPID [id number] 00:00:00* Test Item Value Reference Range Interpretation Comme nts CHOLESTEROL (test code = 2210) 236 MG/DL TRIGLYCERIDES (test code = 2232) 274 MG/DL HDL CHOLESTEROL (test code = 2220) 54 MG/DL CALC LDL CHOL (test code = 2237) 140 MG/DL RISK RATIO LDL/HDL (test cod e = 2238) 2.59 RATIO TSH, THIRD [id number] 00:00:00* Test Item Value Reference Range Interpretation Comme nts TSH, THIRD GENERATION (test code = 2821) 1.600 UIU/ML [id number] 00:00:00* Test Item Value Reference Range Interpretation Comme nts NT-proBNP (test code = 41122) <50 PG/ML CBC W/AUTO [id number] 00:00:00* Test Item Value Reference Range Interpretation [...] ABS NUCLEATED RBCS (test cod e = 99888) 0.00 K/UL Jaden F AustinCOMPREHENSIVE METABOLIC [id number] 00:00:00* Test Item Value Reference Range Interpretation Comme nts GLUCOSE (test code = 2217) 106 MG/DL BUN (test code = 220) 7 MG/DL CREATININE (test code = 2214) 0.57 MG/DL eGFR AMER. (test cod e = ) 113 ML/MIN/1.73 eGFR NON- AMER. (test code = ) 97 ML/MIN/1.73 CALC BUN/CREAT (test code = [...] (test code = 2219) 12 U/L Jaden [id number] 00:00:00* Test Item Value Reference Range Interpretation Comme [facility] TSH, THIRD GENERATION (test code = 2821) 1.390 UIU/ML Jaden PonceHEMOGLOBIN A1c [ADDED]2021-04-05 00:00:00* Test Item Value Reference Range Interpretation Comme [facility] HEMOGLOBIN A1c (test code = 74979) 5.7 % Jaden PonceLIPID [id number] 00:00:00* Test Item Value Reference Range Interpretation Comme nts CHOLESTEROL (test code = 2210) 252 MG/DL TRIGLYCERIDES (test code = 2232) 171 MG/DL HDL CHOLESTEROL (test code = 2220) 61 MG/DL CALC LDL CHOL (test code = 2236) 159 MG/DL RISK RATIO LDL/HDL (test cod e = 2238) 2.61 RATIO Jaden PonceCBC W/AUTO [id number] 00:00:00* Test Item Value Reference Range Interpretation [...] ABS NUCLEATED RBCS (test cod e = 75503) 0.00 K/UL Jaden F KrisCOMPREHENSIVE METABOLIC [id number] 00:00:00* Test Item Value Reference Range Interpretation Comme nts GLUCOSE (test code = 2217) 106 MG/DL BUN (test code = 2208) 7 MG/DL CREATININE (test code = 2214) 0.57 MG/DL eGFR AMER. (test cod e = 48398) 113 ML/MIN/1.73 eGFR NON- AMER. (test code = 43712) 97 ML/MIN/1.73 CALC BUN/CREAT (test code = [...] (test code = 2219) 12 U/L Jaden [id number] 00:00:00* Test Item Value Reference Range Interpretation Comme adrián TSH, THIRD GENERATION (test code = 2821) 1.390 UIU/ML Jaden PonceHEMOGLOBIN A1c [ADDED]2021-04-05 00:00:00* Test Item Value Reference Range Interpretation Comme adrián HEMOGLOBIN A1c (test code = 36138) 5.7 % Jaden PonceLIPID [id number] 00:00:00* Test Item Value Reference Range Interpretation Comme nts CHOLESTEROL (test code = 2210) 252 MG/DL TRIGLYCERIDES (test code = 2232) 171 MG/DL HDL CHOLESTEROL (test code = 2220) 61 MG/DL CALC LDL CHOL (test code = 2237) 159 MG/DL RISK RATIO LDL/HDL (test cod e = 2238) 2.61 RATIO Jaden PonceCBC W/AUTO [id number] 00:00:00* Test Item Value Reference Range Interpretation [...] ABS NUCLEATED RBCS (test cod e = 46191) 0.00 K/UL Jaden PonceCOMPREHENSIVE METABOLIC [id number] 00:00:00* Test Item Value Reference Range Interpretation Comme nts GLUCOSE (test code = 2217) 106 MG/DL BUN (test code = 2208) 7 MG/DL CREATININE (test code = 2214) 0.57 MG/DL eGFR AMER. (test cod e = 17289) 113 ML/MIN/1.73 eGFR NON- AMER. (test code = 37176) 97 ML/MIN/1.73 CALC BUN/CREAT (test code = [...] (test code = 2219) 12 U/L Jaden [id number] 00:00:00* Test Item Value Reference Range Interpretation Comme nts TSH, THIRD GENERATION (test code = 2821) 1.390 UIU/ML Jaden F AustinHEMOGLOBIN A1c [ADDED]2021-04-05 00:00:00* Test Item Value Reference Range Interpretation Comme adrián HEMOGLOBIN A1c (test code = 12146) 5.7 % Jaden PonceLIPID [id number] 00:00:00* Test Item Value Reference Range Interpretation Comme nts CHOLESTEROL (test code = 2210) 252 MG/DL TRIGLYCERIDES (test code = 2232) 171 MG/DL HDL CHOLESTEROL (test code = 2220) 61 MG/DL CALC LDL CHOL (test code = 2237) 159 MG/DL RISK RATIO LDL/HDL (test cod e = 2238) 2.61 RATIO Jaden PonceLIPID [id number] 00:00:00* Test Item Value Reference Range Interpretation Comme nts CHOLESTEROL (test code = 2210) 252 MG/DL TRIGLYCERIDES (test code = 2232) 171 MG/DL HDL CHOLESTEROL (test code = 2220) 61 MG/DL CALC LDL CHOL (test code = 2237) 159 MG/DL RISK RATIO LDL/HDL (test cod e = 2238) 2.61 RATIO CBC W/AUTO [id number] 00:00:00* Test Item Value Reference Range Interpretation [...] ABS NUCLEATED RBCS (test cod e = 55608) 0.00 K/UL COMPREHENSIVE METABOLIC [id number] 00:00:00* Test Item Value Reference Range Interpretation Comme nts GLUCOSE (test code = 2217) 106 MG/DL BUN (test code = 2208) 7 MG/DL CREATININE (test code = 2214) 0.57 MG/DL eGFR AMER. (test cod e = 83987) 113 ML/MIN/1.73 eGFR NON- AMER. (test code = 38619) 97 ML/MIN/1.73 CALC BUN/CREAT (test code = [...] ALT (test code = 2219) 12 U/L [id number] 00:00:00* Test Item Value Reference Range Interpretation Comme nts TSH, THIRD GENERATION (test code = 2821) 1.390 UIU/ML HEMOGLOBIN A1c [ADDED]2021-04-05 00:00:00* Test Item Value Reference Range Interpretation Comme nts HEMOGLOBIN A1c (test code = 50286) 5.7 % LIPID [id number] 00:00:00* Test Item Value Reference Range Interpretation Comme nts CHOLESTEROL (test code = 2210) 252 MG/DL TRIGLYCERIDES (test code = 2232) 171 MG/DL HDL CHOLESTEROL (test code = 2220) 61 MG/DL CALC LDL CHOL (test code = 2237) 159 MG/DL RISK RATIO LDL/HDL (test cod e = 2238) 2.61 RATIO CBC W/AUTO [id number] 00:00:00* Test Item Value Reference Range Interpretation [...] ABS NUCLEATED RBCS (test cod e = 06580) 0.00 K/UL COMPREHENSIVE METABOLIC [id number] 00:00:00* Test Item Value Reference Range Interpretation Comme nts GLUCOSE (test code = 2217) 106 MG/DL BUN (test code = 2208) 7 MG/DL CREATININE (test code = 2214) 0.57 MG/DL eGFR AMER. (test cod e = 23130) 113 ML/MIN/1.73 eGFR NON- AMER. (test code = 11975) 97 ML/MIN/1.73 CALC BUN/CREAT (test code = [...] ALT (test code = 221) 12 U/L [id number] 00:00:00* Test Item Value Reference Range Interpretation Comme nts TSH, THIRD GENERATION (test code = 2821) 1.390 UIU/ML HEMOGLOBIN A1c [ADDED]2021-04-05 00:00:00* Test Item Value Reference Range Interpretation Comme nts HEMOGLOBIN A1c (test code = 09391) 5.7 % LIPID [id number] 00:00:00* Test Item Value Reference Range Interpretation Comme nts CHOLESTEROL (test code = 2210) 252 MG/DL TRIGLYCERIDES (test code = 2232) 171 MG/DL HDL CHOLESTEROL (test code = 2220) 61 MG/DL CALC LDL CHOL (test code = 2237) 159 MG/DL RISK RATIO LDL/HDL (test cod e = 2238) 2.61 RATIO CBC W/AUTO [id number] 00:00:00* Test Item Value Reference Range Interpretation [...] ABS NUCLEATED RBCS (test cod e = 10301) 0.00 K/UL COMPREHENSIVE METABOLIC [id number] 00:00:00* Test Item Value Reference Range Interpretation Comme nts GLUCOSE (test code = 2217) 106 MG/DL BUN (test code = 2208) 7 MG/DL CREATININE (test code = 2214) 0.57 MG/DL eGFR AMER. (test cod e = 60680) 113 ML/MIN/1.73 eGFR NON- AMER. (test code = 64763) 97 ML/MIN/1.73 CALC BUN/CREAT (test code = [...] ALT (test code = 2219) 12 U/L [id number] 00:00:00* Test Item Value Reference Range Interpretation Comme nts TSH, THIRD GENERATION (test code = 2821) 1.390 UIU/ML HEMOGLOBIN A1c [ADDED]2021-04-05 00:00:00* Test Item Value Reference Range Interpretation Comme nts HEMOGLOBIN A1c (test code = 58493) 5.7 % LIPID [id number] 00:00:00* Test Item Value Reference Range Interpretation Comme nts CHOLESTEROL (test code = 2210) 252 MG/DL TRIGLYCERIDES (test code = 2232) 171 MG/DL HDL CHOLESTEROL (test code = 2220) 61 MG/DL CALC LDL CHOL (test code = 2237) 159 MG/DL RISK RATIO LDL/HDL (test cod e = 2238) 2.61 RATIO CBC W/AUTO [id number] 00:00:00* Test Item Value Reference Range Interpretation [...] ABS NUCLEATED RBCS (test cod e = 66203) 0.00 K/UL COMPREHENSIVE METABOLIC [id number] 00:00:00* Test Item Value Reference Range Interpretation Comme nts GLUCOSE (test code = 2217) 106 MG/DL BUN (test code = 2208) 7 MG/DL CREATININE (test code = 2214) 0.57 MG/DL eGFR AMER. (test cod e = 78761) 113 ML/MIN/1.73 eGFR NON- AMER. (test code = 82040) 97 ML/MIN/1.73 CALC BUN/CREAT (test code = [...] ALT (test code = 2219) 12 U/L [id number] 00:00:00* Test Item Value Reference Range Interpretation Comme nts TSH, THIRD GENERATION (test code = 2821) 1.390 UIU/ML HEMOGLOBIN A1c [ADDED]2021-04-05 00:00:00* Test Item Value Reference Range Interpretation Comme nts HEMOGLOBIN A1c (test code = 43697) 5.7 % HEMOGLOBIN [id number] 00:00:00* Test Item Value Reference Range Interpretation Comme nts HEMOGLOBIN A1c (test code = 44015) 5.7 % Jaden F AustinLIPID [id number] 00:00:00* Test Item Value Reference Range Interpretation Comme nts CHOLESTEROL (test code = 2210) 166 MG/DL TRIGLYCERIDES (test code = 2232) 209 MG/DL HDL CHOLESTEROL (test code = 2220) 47 MG/DL CALC LDL CHOL (test code = 2237) 89 MG/DL RISK RATIO LDL/HDL (test cod e = 2238) 1.89 RATIO Jaden PonceCOMPREHENSIVE METABOLIC [id number] 00:00:00* Test Item Value Reference Range Interpretation Comme nts GLUCOSE (test code = 2217) 106 MG/DL BUN (test code = 2208) 10 MG/DL CREATININE (test code = 2214) 0.64 MG/DL eGFR AMER. (test cod e = 93147) 110 ML/MIN/1.73 eGFR NON- AMER. (test code = 03681) 95 ML/MIN/1.73 CALC BUN/CREAT (test code = [...] (test code = 2219) 19 U/L Jaden [id number] 00:00:00* Test Item Value Reference Range Interpretation Comme nts TSH, THIRD GENERATION (test code = 2821) 1.690 UIU/ML Jaden PonceCBC W/AUTO [id number] 00:00:00* Test Item Value Reference Range Interpretation [...] code = 1015) 249 K/UL Jaden PonceHEMOGLOBIN [id number] 00:00:00* Test Item Value Reference Range Interpretation Comme nts HEMOGLOBIN A1c (test code = 23057) 5.7 % Jaden PonceLIPID [id number] 00:00:00* Test Item Value Reference Range Interpretation Comme nts CHOLESTEROL (test code = 2210) 166 MG/DL TRIGLYCERIDES (test code = 2232) 209 MG/DL HDL CHOLESTEROL (test code = 2220) 47 MG/DL CALC LDL CHOL (test code = 2237) 89 MG/DL RISK RATIO LDL/HDL (test cod e = 2238) 1.89 RATIO Jaden PonceCOMPREHENSIVE METABOLIC [id number] 00:00:00* Test Item Value Reference Range Interpretation Comme nts GLUCOSE (test code = 2217) 106 MG/DL BUN (test code = 2208) 10 MG/DL CREATININE (test code = 2214) 0.64 MG/DL eGFR AMER. (test cod e = 37276) 110 ML/MIN/1.73 eGFR NON- AMER. (test code = 60963) 95 ML/MIN/1.73 CALC BUN/CREAT (test code = [...] (test code = 2219) 19 U/L Jaden [id number] 00:00:00* Test Item Value Reference Range Interpretation Comme nts TSH, THIRD GENERATION (test code = 2821) 1.690 UIU/ML Jaden PonceCBC W/AUTO [id number] 00:00:00* Test Item Value Reference Range Interpretation [...] COUNT (test code = 1015) 249 K/UL Jaedn PonceHEMOGLOBIN [id number] 00:00:00* Test Item Value Reference Range Interpretation Comme adrián HEMOGLOBIN A1c (test code = 41361) 5.7 % Jaden PonceLIPID [id number] 00:00:00* Test Item Value Reference Range Interpretation Comme nts CHOLESTEROL (test code = 2210) 166 MG/DL TRIGLYCERIDES (test code = 2232) 209 MG/DL HDL CHOLESTEROL (test code = 2220) 47 MG/DL CALC LDL CHOL (test code = 2237) 89 MG/DL RISK RATIO LDL/HDL (test cod e = 2238) 1.89 RATIO Jaden PonceCOMPREHENSIVE METABOLIC [id number] 00:00:00* Test Item Value Reference Range Interpretation Comme nts GLUCOSE (test code = 2217) 106 MG/DL BUN (test code = 2208) 10 MG/DL CREATININE (test code = 2214) 0.64 MG/DL eGFR AMER. (test cod e = 23731) 110 ML/MIN/1.73 eGFR NON- AMER. (test code = 22298) 95 ML/MIN/1.73 CALC BUN/CREAT (test code = [...] (test code = 2219) 19 U/L Jaden [id number] 00:00:00* Test Item Value Reference Range Interpretation Comme nts TSH, THIRD GENERATION (test code = 2821) 1.690 UIU/ML Jaden PonceCBC W/AUTO [id number] 00:00:00* Test Item Value Reference Range Interpretation [...] (test code = 1015) 249 K/UL Jaden PonceCBC W/AUTO [id number] 00:00:00* Test Item Value Reference Range Interpretation [...] (test code = 1015) 249 K/UL HEMOGLOBIN [id number] 00:00:00* Test Item Value Reference Range Interpretation Comme nts HEMOGLOBIN A1c (test code = 05852) 5.7 % LIPID [id number] 00:00:00* Test Item Value Reference Range Interpretation Comme nts CHOLESTEROL (test code = 2210) 166 MG/DL TRIGLYCERIDES (test code = 2232) 209 MG/DL HDL CHOLESTEROL (test code = 2220) 47 MG/DL CALC LDL CHOL (test code = 2237) 89 MG/DL RISK RATIO LDL/HDL (test cod e = 2238) 1.89 RATIO COMPREHENSIVE METABOLIC [id number] 00:00:00* Test Item Value Reference Range Interpretation Comme nts GLUCOSE (test code = 2217) 106 MG/DL BUN (test code = 2208) 10 MG/DL CREATININE (test code = 2214) 0.64 MG/DL eGFR AMER. (test cod e = 97388) 110 ML/MIN/1.73 eGFR NON- AMER. (test code = 29555) 95 ML/MIN/1.73 CALC BUN/CREAT (test code = [...] ALT (test code = 2219) 19 U/L [id number] 00:00:00* Test Item Value Reference Range Interpretation Comme nts TSH, THIRD GENERATION (test code = 2821) 1.690 UIU/ML CBC W/AUTO [id number] 00:00:00* Test Item Value Reference Range Interpretation [...] (test code = 1015) 249 K/UL HEMOGLOBIN [id number] 00:00:00* Test Item Value Reference Range Interpretation Comme nts HEMOGLOBIN A1c (test code = 12707) 5.7 % LIPID [id number] 00:00:00* Test Item Value Reference Range Interpretation Comme nts CHOLESTEROL (test code = 2210) 166 MG/DL TRIGLYCERIDES (test code = 2232) 209 MG/DL HDL CHOLESTEROL (test code = 2220) 47 MG/DL CALC LDL CHOL (test code = 2237) 89 MG/DL RISK RATIO LDL/HDL (test cod e = 2238) 1.89 RATIO COMPREHENSIVE METABOLIC [id number] 00:00:00* Test Item Value Reference Range Interpretation Comme nts GLUCOSE (test code = 2217) 106 MG/DL BUN (test code = 2208) 10 MG/DL CREATININE (test code = 2214) 0.64 MG/DL eGFR AMER. (test cod e = 66989) 110 ML/MIN/1.73 eGFR NON- AMER. (test code = 46771) 95 ML/MIN/1.73 CALC BUN/CREAT (test code = [...] ALT (test code = 2219) 19 U/L [id number] 00:00:00* Test Item Value Reference Range Interpretation Comme nts TSH, THIRD GENERATION (test code = 2821) 1.690 UIU/ML CBC W/AUTO [id number] 00:00:00* Test Item Value Reference Range Interpretation [...] (test code = 1015) 249 K/UL HEMOGLOBIN [id number] 00:00:00* Test Item Value Reference Range Interpretation Comme nts HEMOGLOBIN A1c (test code = 86860) 5.7 % LIPID [id number] 00:00:00* Test Item Value Reference Range Interpretation Comme nts CHOLESTEROL (test code = 2210) 166 MG/DL TRIGLYCERIDES (test code = 2232) 209 MG/DL HDL CHOLESTEROL (test code = 2220) 47 MG/DL CALC LDL CHOL (test code = 2237) 89 MG/DL RISK RATIO LDL/HDL (test cod e = 2238) 1.89 RATIO COMPREHENSIVE METABOLIC [id number] 00:00:00* Test Item Value Reference Range Interpretation Comme nts GLUCOSE (test code = 2217) 106 MG/DL BUN (test code = 2208) 10 MG/DL CREATININE (test code = 2214) 0.64 MG/DL eGFR AMER. (test cod e = 33873) 110 ML/MIN/1.73 eGFR NON- AMER. (test code = 12968) 95 ML/MIN/1.73 CALC BUN/CREAT (test code = [...] ALT (test code = 2219) 19 U/L [id number] 00:00:00* Test Item Value Reference Range Interpretation Comme nts TSH, THIRD GENERATION (test code = 2821) 1.690 UIU/ML CBC W/AUTO [id number] 00:00:00* Test Item Value Reference Range Interpretation [...] (test code = 1015) 249 K/UL HEMOGLOBIN [id number] 00:00:00* Test Item Value Reference Range Interpretation Comme nts HEMOGLOBIN A1c (test code = 55143) 5.7 % LIPID [id number] 00:00:00* Test Item Value Reference Range Interpretation Comme nts CHOLESTEROL (test code = 2210) 166 MG/DL TRIGLYCERIDES (test code = 2232) 209 MG/DL HDL CHOLESTEROL (test code = 2220) 47 MG/DL CALC LDL CHOL (test code = 2237) 89 MG/DL RISK RATIO LDL/HDL (test cod e = 2238) 1.89 RATIO COMPREHENSIVE METABOLIC [id number] 00:00:00* Test Item Value Reference Range Interpretation Comme nts GLUCOSE (test code = 2217) 106 MG/DL BUN (test code = 2208) 10 MG/DL CREATININE (test code = 2214) 0.64 MG/DL eGFR AMER. (test cod e = 25229) 110 ML/MIN/1.73 eGFR NON- AMER. (test code = 26122) 95 ML/MIN/1.73 CALC BUN/CREAT (test code = [...] ALT (test code = 2219) 19 U/L [id number] 00:00:00* Test Item Value Reference Range Interpretation Comme nts TSH, THIRD GENERATION (test code = 2821) 1.690 UIU/ML Notes Date/Time [facility] 00:00:00 [facility]2024-06-27 00:00:00 [facility]
[2024-04-12] MEDS ORDERED: DIPHENHYDRAMINE 50 MG/ML VIAL ONE (10:32)
[2024-04-12] MEDS ORDERED: HALOPERIDOL LACT 5 MG/ML INJ ONE (10:32)
[2024-04-12] MEDS ORDERED: FAMOTIDINE 20 MG/2 ML VIAL IV ONE (10:32)
[2024-04-12 10:33] LABS: Absolute Lymphocytes (CBC) 0.8 K/uL (0.7-4.9); Absolute Monocytes 0.3 K/uL (0.1-1.3); Absolute Neutrophil 4.9 K/uL (1.8-8.0); Basophils % 0.8 % (0-1.3); Eosinophils % 0.2 % (0-4.4); Hematocrit 47.3 % (36.0-45.0); Hemoglobin 16.1 g/dL (12.0-15.0); Lymphocytes % 13.6 % (15.3-44.8); MCH 32.9 pg (27.0-35.0); MCHC 34.1 g/dL (32.0-36.0); MCV 96.6 fL (80-100); Monocytes % 5.6 % (3.3-12.3); Neutrophils % 79.8 % (41.7-73.7); Nucleated Red Blood Cells % 0.1 % (0-0); Platelets 190 thou/uL (152-406); Red Cell Distribution Width 14.6 % (12.1-15.2)
[2024-04-12 10:52] LABS: Albumin 3.8 g/dL (3.4-5.0); Albumin/Globulin Ratio 1.2 (1.1-1.8); Alkaline Phosphatase 91 U/L (45-117); Anion Gap 6.8 mEq/L (5.0-15.0); BUN Blood Urea Nitrogen 6 mg/dL (7-18); Bicarbonate 27 mEq/L (21-32); Bilirubin Direct 0.2 mg/dL (0-0.2); Bilirubin Indirect, Calculated 0.3 mg/dL (0.2-0.8); Bilirubin Total 0.5 mg/dL (0.2-1.0); Globulin 3.3 g/dL (2.3-3.5); Glomerular Filtration Rate 99 ml/min (=/>90); Glucose Level 128 mg/dL (74-106); Potassium 3.8 mEq/L (3.5-5.1); Protein, Total 7.1 g/dL (6.4-8.2); Sodium Level 139 mEq/L (136-145); Troponin High Sensitivity 4.8 pg/mL (<58.9)
[2024-04-12 10:53] LABS: ALT/SGPT < 14 U/L (13-56); AST/SGOT < 10 U/L (15-37)
[2024-04-12] MEDS ORDERED: KETAMINE HCL IN 0.9 % NACL 50 MG/5 ML SYRINGE IV ONE (11:02)
--- NOTE | 2024-04-12 11:57 | ER ---
Nurse's Notes [facility] Name: Delmi Pool Age: 69 yrs Sex: Female : 1955 Arrival Date: 04/12/2024 Time: 10:00 Bed 4 Private MD: Diagnosis: Upper abdominal pain, unspecified Presentation: 04/12 10:06 Chief complaint: EMS states: Epigastric pain that started at 0430 this morning, also ph c/o nausea, 4 mg Zofran given IM, VSS, no fever, pt states that she has had this pain in the past but never this bad. Coronavirus screen: Vaccine status: Patient reports receiving the 2nd dose of the covid vaccine. Ebola Screen: No symptoms or risks identified at this time. Initial Sepsis Screen: Does the patient meet any 2 criteria? No. Patient's initial sepsis screen is negative. Does the patient have a suspected source of infection? No. Patient's initial sepsis screen is negative. Risk Assessment: Do you want to hurt yourself or someone else? Patient reports no desire to harm self or others. Onset of symptoms was April 12, 2024. 10:06 Method Of Arrival: EMS: [facility] ph 10:06 Acuity: GILBERTO 3 ph Historical: - Allergies: 10:09 Toradol; ph 10:09 tramadol; ph 10:09 Sulfa (Sulfonamide Antibiotics); ph - PMHx: 10:09 diabetes mellitus; Hypercholesterolemia; Hypertensive disorder; neuropathy; ph - PSHx: 10:09 Bowel Retracement; Appendectomy; section; Cholecystectomy; ph - Immunization history:: Adult Immunizations unknown. - Infectious Disease History:: Denies. - Social history:: Smoking status: Patient denies any tobacco usage or history of. Screenin:40 [facility] ED Fall Risk Assessment (Adult) History of falling in the last 3 months, ph including since admission No falls in past 3 months (0 pts) Confusion or Disorientation No (0 pts) Intoxicated or Sedated No (0 pts) Impaired Gait No (0 pts) Mobility Assist Device Used No (0 pt) Altered Elimination No (0 pt) Score/Fall Risk Level 0 - 2 = Low Risk Oriented to surroundings, Maintained a safe environment, Hourly rounding (assess needs \T\ fall precautionary measures) done. Abuse screen: Denies threats or abuse. Denies injuries from another. Nutritional screening: No deficits noted. Tuberculosis screening: No symptoms or risk factors identified. Assessment: 10:40 General: Appears in no apparent distress. uncomfortable, Behavior is cooperative, ph appropriate for age, anxious. Pain: Complains of pain in epigastric area. Neuro: Level of Consciousness is awake, alert, obeys commands, Oriented to person, place, time, situation. Cardiovascular: Capillary refill < 3 seconds in bilateral fingers Patient's skin is warm and dry. Respiratory: Airway is patent Respiratory effort is even, unlabored, Respiratory pattern is regular, symmetrical. GI: Abdomen is non-distended, Reports epigastric pain, nausea, vomiting. Derm: Skin is pink, warm \T\ dry. 11:19 Reassessment: Patient appears in no apparent distress at this time. Patient and/or ph family updated on plan of care and expected duration. Pain level reassessed. Patient is alert, oriented x 3, equal unlabored respirations, skin warm/dry/pink. Patient states feeling better. Vital Signs: 10:06 BP 120 / 69; Pulse 91; Resp 18; Temp 98.1; Pulse Ox 97% on R/A; Weight 67.13 kg; Height ph 5 ft. 6 in. ; 10:41 BP 105 / 75; Pulse 87; Resp 18; Pulse Ox 97% on R/A; ph 11:50 BP 130 / 63; Pulse 76; Resp 18; Pulse Ox 98% on R/A; ph 10:06 Body Mass Index 23.89 (67.13 kg, 167.64 cm) ph ED Course: 10:06 Patient arrived in ED. ph 10:06 Miguel Angel Mabry MD is Attending Physician. ec2 10:08 Triage completed. ph 10:09 Arm band placed on Patient placed in an exam room, on a stretcher, on pulse oximetry. ph 10:11 Mary Olivarez, UBALDO is Primary Nurse. ph 10:15 Initial lab(s) drawn, by me, sent to lab. Missed attempt(s): 22 gauge in left forearm. ph Bleeding controlled, band aid applied, catheter tip intact. Inserted saline lock: 22 gauge in left wrist, using aseptic technique. Blood collected. Flushed with 10 mL NS. 10:41 Patient has correct armband on for positive identification. Call light in reach. Side ph rails up X2. Pulse ox on. NIBP on. Door closed. Noise minimized. Warm blanket given. Pillow given. 10:42 Basic Metabolic Panel Sent. ph 10:43 LFT's Sent. ph 10:43 Troponin HS Sent. ph 12:29 No provider procedures requiring assistance completed. IV discontinued, intact, ph bleeding controlled, No redness/swelling at site. Pressure dressing applied. Administered Medications: 10:31 CANCELLED (Physician Discretion): droperidol2.5 mg IVP once ec2 10:42 Drug: diphenhydrAMINE IVP 50 mg IVP once Route: IVP; Site: left wrist; ph 11:50 Follow up: Response: No adverse reaction ph 10:42 Drug: Famotidine IVP 20 mg IVP once; dilute with 10 mL 0.9% NaCl; give over 2 minutes ph Route: IVP; Site: left wrist; 11:51 Follow up: Response: No adverse reaction ph 10:42 Drug: Haloperidol IVP 5 mg IVP once Route: IVP; Site: left wrist; ph 11:51 Follow up: Response: No adverse reaction; Nausea is decreased ph 11:18 Drug: Ketamine IVP 25 mg IVP once Route: IVP; Site: left wrist; ph 11:51 Follow up: Response: No adverse reaction; Pain is decreased ph Medication: 10:40 VIS not applicable for this client. ph Outcome: 11:57 Discharge ordered by . ec2 12:29 Discharged to home ambulatory, ph 12:29 Condition: good 12:29 Discharge instructions given to patient, Instructed on discharge instructions, the need for admit, Demonstrated understanding of instructions, follow-up care, 12:29 Patient left the ED. ph Signatures: Mary Olivarez, RN RN ph Miguel Angel Mabry MD MD ec2
--- NOTE | 2024-04-12 11:57 | EDPHYS ---
Physician Documentation [facility] Name: Delmi Pool Age: 69 yrs Sex: Female : 1955 Arrival Date: 04/12/2024 Time: 10:00 Bed 4 Private MD: ED Physician Miguel Angel Mabry HPI: 04/12 10:11 This 69 yrs old Female presents to ER via EMS with complaints of Epigastric ec2 Pain. 10:11 Patient arrives today for evaluation of upper abdominal pain in the setting of chronic ec2 abdominal pain. Patient reports that she has previously been admitted for this and was told that she needs to follow-up with a GI doctor. External records indicate that she had a CT abdomen pelvis approximately 3 weeks ago which was negative for acute pathology. Reports she is having persistent pain as of this morning. Reports some nausea associated with this as well.. Historical: - Allergies: 10:09 Toradol; ph 10:09 tramadol; ph 10:09 Sulfa (Sulfonamide Antibiotics); ph - PMHx: 10:09 diabetes mellitus; Hypercholesterolemia; Hypertensive disorder; neuropathy; ph - PSHx: 10:09 Bowel Retracement; Appendectomy; section; Cholecystectomy; ph - Immunization history:: Adult Immunizations unknown. - Infectious Disease History:: Denies. - Social history:: Smoking status: Patient denies any tobacco usage or history of. ROS: 10:11 Constitutional: as per hpi ec2 Exam: 10:11 Constitutional: GEN: NAD Head: atraumatic Eyes: EOMI Ears: External ears are ec2 normal. CV: regular rate LUNGS: no respiratory distress ABD: non-guarding, not rigid SKIN: no evidence of rashes MSK: no evidence of trauma Vital Signs: 10:06 BP 120 / 69; Pulse 91; Resp 18; Temp 98.1; Pulse Ox 97% on R/A; Weight 67.13 kg; Height ph 5 ft. 6 in. ; 10:41 BP 105 / 75; Pulse 87; Resp 18; Pulse Ox 97% on R/A; ph 11:50 BP 130 / 63; Pulse 76; Resp 18; Pulse Ox 98% on R/A; ph 10:06 Body Mass Index 23.89 (67.13 kg, 167.64 cm) ph MDM: 10:06 Medical Screening Exam initiated ec2 10:11 Data reviewed: vital signs. ED course: Patient arrives today for chronic abdominal pain ec2 with worsening pain this morning. Examination is revealing for abdominal findings as above. Will obtain lab work, EKG, chest x-ray and treat the patient symptoms.. 10:55 ED course: CBC, metabolic profile and troponin are nonactionable.. ec2 11:15 ED course: Lab reviewed and interpreted by me, shows normal sinus of 82, no acute ST ec2 segment elevations, intervals are not actionable. . 11:56 ED course: On reassessment patient reports marked improvement in pain. Will discharge ec2 home have follow-up PCP. Return precautions given.. 04/12 10:10 Order name: Basic Metabolic Panel; Complete Time: 10:55 ec2 04/12 10:10 Order name: CBC with Diff; Complete Time: 10:55 ec2 04/12 10:10 Order name: LFT's; Complete Time: 10:55 ec2 04/12 10:10 Order name: Troponin HS; Complete Time: 10:55 ec2 04/12 10:10 Order name: EKG; Complete Time: 10:10 ec2 04/12 10:10 Order name: Cardiac monitoring; Complete Time: 11:19 ec2 04/12 10:10 Order name: EKG - Nurse/Tech; Complete Time: 11:19 ec2 04/12 10:10 Order name: IV Saline Lock; Complete Time: 10:42 ec2 04/12 10:10 Order name: Labs collected and sent; Complete Time: 10:42 ec2 04/12 10:10 Order name: O2 Per Protocol; Complete Time: 10:42 ec2 04/12 10:10 Order name: O2 Sat Monitoring; Complete Time: 10:42 ec2 04/12 10:55 Order name: Misc. Order: pain dose ketamine; Complete Time: 11:18 ec2 Administered Medications: 10:31 CANCELLED (Physician Discretion): droperidol2.5 mg IVP once ec2 10:42 Drug: diphenhydrAMINE IVP 50 mg IVP once Route: IVP; Site: left wrist; ph 11:50 Follow up: Response: No adverse reaction ph 10:42 Drug: Famotidine IVP 20 mg IVP once; dilute with 10 mL 0.9% NaCl; give over 2 minutes ph Route: IVP; Site: left wrist; 11:51 Follow up: Response: No adverse reaction ph 10:42 Drug: Haloperidol IVP 5 mg IVP once Route: IVP; Site: left wrist; ph 11:51 Follow up: Response: No adverse reaction; Nausea is decreased ph 11:18 Drug: Ketamine IVP 25 mg IVP once Route: IVP; Site: left wrist; ph 11:51 Follow up: Response: No adverse reaction; Pain is decreased ph Disposition Summary: 04/12/24 11:57 Discharge Ordered Notes: Location: Home ec2 Condition: Stable ec2 Diagnosis - Upper abdominal pain, unspecified ec2 Followup: ec2 - With: Private Physician - When: - Reason: Re-evaluation by your physician Discharge Instructions: - Discharge Summary Sheet ec2 - Abdominal Pain, Adult ec2 Forms: - Medication Reconciliation Form ec2 - Antibiotic Education ec2 - Prescription Opioid Use ec2 - Patient Portal Instructions ec2 - Leadership Thank You Letter ec2 Signatures: Dispatcher [employer] Mary Martinez RN RN [facility] ec2 Corrections: (The following items were deleted from the chart) 10:10 10:10 BASIC METABOLIC PANEL+C.LAB.BRZ ordered. EDMS EDMS 10:10 10:10 CBC+H.LAB.BRZ ordered. EDMS EDMS 10:10 10:10 HEPATIC FUNCTION+C.LAB.BRZ ordered. EDMS EDMS 10:10 10:10 Troponin High Sensitivity+C.LAB.BRZ ordered. EDMS EDMS 10:31 10:10 Droperidol IVP 2.5 mg IVP once ordered. ec2 ec2 10:31 10:31 Droperidol IVP 2.5 mg IVP once ordered. ec2 ec2 12:12 10:10 Chest Single View+RAD.RAD.BRZ ordered. EDMS EDMS
[2024-04-12 14:16] VITALS: TEMP 98.1
[2024-04-12 14:28] VITALS: BP 130/63; O2SAT 98
--- NOTE | 2024-04-14 11:39 | EKG ---
Test Date: 2024-04-12 Test Time: 11:13:06 Gold Assayer: PH MEASUREMENT RESULTS: Intervals: Rate: 82 NJ: 126 QRSD: 76 QT: 416 QTc: 486 Ackerman: P: 83 NJ: 126 QRS: 61 T: 69 INTERPRETIVE STATEMENTS: Normal sinus rhythm Normal ECG No previous ECG available for comparison Electronically Signed On 04-14-24 11:34:38 [employer] by Rosales Baum
== END 2024-04-12 12:29 | disposition home or self-care (01) ==
LOC: ER 10:00
DX: R10.13 Epigastric pain (principal); R11.0 Nausea; I10 Essential (primary) hypertension; E78.00 Pure hypercholesterolemia, unspecified; E11.9 Type 2 diabetes mellitus without complications; Z88.5 Allergy status to narcotic agent
CPT/HCPCS: 93005; 85025; 80048; 36415; 80076; 84484; 96375; 96374; 99284; J1630; J1200

== ENCOUNTER 2024-04-15 09:46 | Observation (INO) | payer OTHER ==
--- OUTSIDE RECORDS SUMMARY | 2024-04-15 09:52 | XMS REPORT | Continuity of Care Document ---
Author Name Unknown Address [address] [facility] [address] [place] [address] [facility] Address 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 Name Role Phone Pcp, Patient Does Not Have A Primary Care Physic juan Doctor Unassigned, [place] Attending Clinician U Maegan Valdez MD Attending Clinician MAEGAN HEAD Attending Clinician Unavailabl e AMBREEN_FARHANA Attending Clinician Unavailable AMBREEN_SUYAPA Admitting Clinician Unavailable Payers Payer Name Policy Type Policy Number Effective Date Expirati on Date Source [facility] (MEDICARE REPLACEMENT HMO) [id number] 2022 00:00:00 Allergies, Adverse Reactions, Alerts Allergy Name Allergy Type Status Severity Reaction(s) Onset Date Inactive Date Treating Clinician Comments Source Sulfa (Sulfona mide Antibiot ics) Propensi ty to adverse reaction to drug Inactiv e 07-21 00:00: 00 Jaden Ponce NO KNOWN ALLERGIE S Drug Class Active [facility] Social History Social Habit Start Date Stop Date Quantity Comments Source Exposure to SARS-CoV-2 (event) 2022-09-27 00:00:00 2022-10-07 14:36:00 Not sure [facility] Sex Assigned At 1955 00:00:00 1955 00:00:00 [facility] Smoking Status Start Date Stop Date Source Tobacco smoking consumption unknown [facility] Medications Ordered Medication Name Filled Medication [...] NOSTRIL TWICE DAILY. 08-03 00:00: 00 Yes [id number] Jaden Ponce INHALE 1 PUFF TWICE DAILY. 08-03 00:00: 00 Yes [id number] 5 Jaden Ponce TAKE 1 TABLET BY MOUTH DAILY 08-03 00:00: 00 Yes 10 Jaden Ponce TAKE 1 TABLET BY MOUTH 4 TIMES DAILY. 08-03 00:00: 00 Yes 800 Jaden Ponce TAKE 1 TABLET BY MOUTH DAILY 08-03 00:00: 00 Yes 50 Jaden Ponce INHALE 2 PUFFS BY MOUTH EVERY 4 TO 6 HOURS NEEDED. 08-03 00:00: 00 Yes [id number] Jaden Ponce 1 CAP EVERY 8 HOURS NEEDED FOR COUGH 08-03 00:00: 00 09-30 00:00 :00 No 200 Jaden Ponce TAKE 2 TABLETS ON DAY 1 THEN TAKE 1 TABLET A DAY FOR 4 DAYS. 08-03 00:00: 00 09-30 00:00 :00 No 250 Jaden Ponce TAKE 5 ML EVERY 6 HOURS NEEDED FOR COUGH 08-03 00:00: 00 09-30 00:00 :00 No [id number] Jaden Ponce TAKE 1 TAB 3 TIMES [...] 06-19 00:00: 00 09-30 00:00 :00 No [id number] Jaden Ponce losartan 50 mg tablet 06-18 [...] 06-18 00:00: 00 09-30 00:00 :00 No [id number] Jaden Ponce AMITRIPTYLI NE HYDROCHLORI DE 50 [...] 2022-05 00:00: 00 09-30 00:00 :00 No [id number] Jaden Ponce PANTOPRAZOL E SOD DR 40 MG 2022-05 00:00: 00 Yes Jaden Ponce LOSARTAN POTASSIUM 50 MG 2022-05 00:00: 00 Yes Jaden Ponce 1 CAP EVERY 8 HOURS NEEDED FOR COUGH 2022-05 0 00:00: 00 09-30 00:00 :00 No 200 Jaden Ponce INHALE 1 PUFF TWICE DAILY. 2022-05 0 00:00: 00 09-30 00:00 :00 No [id number] 5 Jaden Ponce TAKE 5 ML EVERY 4 TO 6 HOURS NEEDED FOR COUGH. 2022-05 0- 00:00: 00 09-30 00:00 :00 No [id number] Jaden Ponce TAKE 2 TABS DAILY THE [...] TRELEGY ELLIPTA 200-62.5-25 01-15 00:00: 00 Yes [id number] Jaden Ponce TAKE 2 TABS DAILY THE FIRST 5 DAYS,THEN 1 TAB DAILY THE LAST 5 DAYS 01-15 00:00: 00 09-30 00:00 :00 No 20 Jaden Ponce USE 1 SPRAY IN EACH NOSTRIL TWICE DAILY. 01-15 00:00: 00 09-30 00:00 :00 No 12224 Jaden Ponce TAKE 1 TABLET TWICE DAILY WITH FOOD. 01-15 00:00: 00 09-30 00:00 :00 No [id number] Jaden Ponce INSTILL 2 DROPS INTO BOTH EYES ONCE DAILY. 01-15 00:00: 00 09-30 00:00 :00 No 2 Jaden Ponce TAKE 5 ML EVERY 4 TO 6 HOURS NEEDED FOR COUGH. 01-15 00:00: 00 09-30 00:00 :00 No [id number] Jaden Ponce TAKE 1 TABLET BY MOUTH [...] 12-19 00:00: 00 09-30 00:00 :00 No [id number] Jaden Ponce INHALE 2 PUFFS EVERY 4 TO 6 HOURS NEEDED. 12-19 00:00: 00 09-30 00:00 :00 No [id number] Jaden oPnce TAKE 1 TABLET BY MOUTH AT BEDTIME [...] 10-30 00:00: 00 09-30 00:00 :00 No [id number] Jaden Ponce TAKE 1 TABLET BY MOUTH DAILY 10-30 00:00: 00 09-30 00:00 :00 No 10 Jaden Ponce TAKE 1 TABLET DAILY. 10-30 00:00: 00 09-30 00:00 :00 No 50 Jaden Ponec TAKE 1 TABLET BY MOUTH DAILY 10-30 00:00: 00 09-30 00:00 :00 No 40 Jaden Ponce TAKE 1 TABLET 4 TIMES DAILY. 10-30 00:00: 00 09-30 00:00 :00 No 800 Jaden Ponce HYDROCODONE -ACETAMIN 10-325 MG 5-31 00:00: 00 Yes Jaden Ponce triamcinolo ne acetonide (KENALOG) injection 40 mg 10-07 21:45: 00 10-07 20:33 :00 No [id number] 9108 40mg [facility] TRAMADOL HCL 50 MG 10-07 00:00: 00 Yes Jaden Ponce traMADoL 50 mg tablet 10-07 00:00: 00 10-15 04:59 :00 No [id number] 50mg Take 1 tablet by mouth every 6 (six) hours as needed for Pain (scale 4-6) for up to 7 days. Indication s: acute pain [facility] TAKE 1 TABLET BY MOUTH EVERY DAY 10-01 00:00: 00 Yes Jaden Ponce HYDROCODONE -ACETAMIN 5-325 MG 10-01 00:00: 00 Yes Jaden Ponce amLODIPine 5 mg tablet 10-01 00:00: 00 Yes 5mg Take 1 tablet by mouth in the morning. [facility] NEOMYCIN-PO LYMYXIN-HC EAR SOLN 08-21 00:00: 00 [...] 08-21 00:00: 00 09-30 00:00 :00 No [id number] Jaden Ponce INSTILL 3 DROPS IN BOTH EARS 3-4 TIMES DAILY. 08-21 00:00: 00 09-30 00:00 :00 No Jaden Ponce INHALE 2 PUFFS TWICE DAILY. 08-21 00:00: 00 09-30 00:00 :00 No [id number] Jaden Ponce TAKE 1 TABLET BY MOUTH AT BEDTIME 08-21 00:00: 00 09-30 00:00 :00 No 10 Jadenluna Ponce INHALE 2 PUFFS EVERY 4 TO 6 HOURS NEEDED. 08-21 00:00: 09-30 00:00 :00 No 53054 Jaden Ponce pantoprazol e 40 mg EC tablet 08-20 00:00: 00 Yes Landy corrigan [facility] PREDNISONE 20 MG 08-15 00:00: 00 Yes 20 Jaden Serafin Ponce ALBUTEROL HFA 90 MCG INHALER 08-15 00:00: 00 Yes 90 Jaden Ponce INHALE 2 PUFFS EVERY 4 TO 6 HOURS NEEDED. 08-15 00:00: 00 09-30 00:00 :00 No 32285 Jaden Ponce TAKE 5 ML EVERY 4 TO 6 HOURS NEEDED FOR COUGH. 08-15 00:00: 00 09-30 00:00 :00 No [id number] Jaden Serafin Ponce 1 CAP EVERY 8 HOURS NEEDED FOR COUGH 08-15 00:00: 00 09-30 00:00 :00 No 200 Jaden Serafin Ponce INHALE 2 PUFFS TWICE DAILY. 08-15 00:00: 00 09-30 00:00 :00 No [id number] Jaden Serafin Ponce TAKE 1 TABLET BY [...] - 00:00: 00 09-30 00:00 :00 No [id number] Jaden Ponce TAKE 1 TABLET BY MOUTH DAILY - [...] 2021-05 00:00: 00 09-30 00:00 :00 No [id number] Jaden Ponce TAKE 1 TABLET BY MOUTH EVERY DAY FOR BACK PAIN 2021-05 00:00: 00 Yes Jaden Ponce METHYLPREDN ISOLONE 4 MG DOSEPK 2021-05 2- 00:00: 00 Yes Jaden Ponce PREDNISONE 20 MG 2021-05- 00:00: 00 Yes Jaden Ponce AZITHROMYCI N 250 MG 2021-05 00:00: 00 Yes Jaden Ponce INHALE 2 PUFFS TWICE DAILY. 2021-05- 00:00: 00 09-30 00:00 :00 No [id number] Jaden Ponce Dose Unknown 2021-05 2- 00:00: 00 Yes 20 Jaden Ponce PREGABALIN 300 MG CAPSULE</Te xt> <Code> <Value>0022 [id number]</Va lue> <CodingSyst em>NDC</Cod ingSystem> </Code> 2021-05 2- 00:00: 00 Yes 300 Jaden Ponce Dose Unknown 2021-05 2- 00:00: 00 Yes Jaden Ponce Dose Unknown 2021-05 2- 00:00: 00 Yes Jaden Ponce Dose Unknown 2021-05 2- 00:00: 00 Yes Jaden Ponce Dose Unknown 2021-05 2- 00:00: 00 Yes Jaden Ponce PROAIR HFA 90 MCG INHALER</Te xt> <Code> <Value>2169 [id number]</Va lue> <CodingSyst em>NDC</Cod ingSystem> </Code> 2021-05 2- 00:00: 00 Yes Jaden Ponce Dose Unknown 2021-05 2- 00:00: 00 Yes Jaden Ponce AMOX-CLAV 875-125 MG TABLET</Nicolás t> <Code> <Value>0009 [id number]</Va lue> <CodingSyst em>NDC</Cod ingSystem> </Code&gt 2021-05 2- 00:00: 00 Yes Jaden Ponce HYDROCHLORO THIAZIDE 25 MG TAB</Text> <Code> <Value>0017 [id number]</Va lue> <CodingSyst em>NDC</Cod ingSystem> </Code& 2021-05 2- 00:00: 00 Yes 25 Jaden Ponce Dose Unknown 2021-05 2- 00:00: 00 Yes Jaden Ponce PREGABALIN 150 MG CAPSULE</Te xt> <Code> <Value>0022 [id number]</Va lue> <CodingSyst em>NDC</Cod ingSystem> </Code> 2021-05 2- [...] PREGABALIN 300 MG CAPSULE</Te xt> <Code> <Value>0022 [id number]</Va lue> <CodingSyst em>NDC</Cod ingSystem> </Code> 2021-05 00:00: 00 No 300 Dose Unknown 2021-05 00:00: 00 No Dose Unknown 2021-05 00:00: 00 No Dose Unknown 2021-05 00:00: 00 No Dose Unknown 2021-05 00:00: 00 No INHALE 1 PUFF TWICE DAILY. 2021-05 00:00: 00 No [id number] 5 INHALE 2 PUFFS EVERY 4 TO 6 HOURS NEEDED. 2021-05 00:00: 00 No 31538 PROAIR HFA 90 MCG INHALER</Te xt> <Code> <Value>2169 [id number]</Va lue> <CodingSyst em>NDC</Cod ingSystem> </Code> 2021-05 00:00: 00 No Dose Unknown 2021-05 00:00: 00 No AMOX-CLAV 875-125 MG TABLET</Nicolás t> <Code> <Value>0009 [id number]</Va lue> <CodingSyst em>NDC</Cod ingSystem> </Code&gt 2021-05 00:00: 00 No HYDROCHLORO THIAZIDE 25 MG TAB</Text> <Code> <Value>0017 [id number]</Va lue> <CodingSyst em>NDC</Cod ingSystem> </Code& 2021-05 00:00: 00 No 25 TAKE 1 TABLET AT BEDTIME. 2021-05 00:00: 00 No 20 Dose Unknown 2021-05 00:00: 00 No PREGABALIN 150 MG CAPSULE</Te xt> <Code> <Value>0022 [id number]</Va lue> <CodingSyst em>NDC</Cod ingSystem> </Code> 2021-05 00:00: 00 No 150 TAKE 5 ML DAILY AT BEDTIME. 2021-05 2 00:00: 00 No [id number] TAKE 1 TABLET DAILY. 2021-05 00:00: 00 [...] 2021-05 00:00: 00 09-30 00:00 :00 No [id number] 5 Jaden Ponce INHALE 2 PUFFS EVERY 4 TO 6 HOURS NEEDED. 2021-05 00:00: 00 09-30 00:00 :00 No 70173 Jaden Ponce TAKE 1 TABLET AT BEDTIME. 2021-05 00:00: 00 09-30 00:00 :00 No 20 Jaden Ponce TAKE 5 ML DAILY AT BEDTIME. 2021-05 00:00: 00 09-30 00:00 :00 No [id number] Jaden Ponce TAKE 1 TABLET DAILY. 2021-05 00:00: 00 09-30 00:00 :00 No 160 Jaden Ponce TAKE 1 TABLET 4 TIMES DAILY. 2021-05 00:00: 00 09-30 00:00 :00 No 800 Jaden Ponce INHALE 2 PUFFS TWICE DAILY. 2021-05 00:00: 00 09-30 00:00 :00 No 81585 Jaden Serafin Ponce TRELEGY ELLIPTA 200-62.5-25 2021-05 1-08 00:00: 00 Yes Jaden Ponce AZITHROMYCI N 250 MG 2021-05 0-27 00:00: 00 Yes 250 Jadenluna Ponce TRELEGY ELLIPTA 200-62.5-25 2022-1 0-27 00:00: 00 Yes [id number] Jaden Ponce ATORVASTATI N 20 MG 2021-1 [...] 2021-0 6-06 00:00: 00 Yes 1mg Jaden Pocne &lt 2022-0 6-06 00:00: 00 Yes Jaden [...] mg tablet 8- 00:00: 00 Yes mg Jaedn Ponce gabapentin 300 mg capsule - 00:00: [...] Systolic blood pressure 2022-10-07 20:05:00 133 mm[Hg] [facility] Diastolic blood pressure 2022-10-07 20:05:00 70 mm[Hg] [facility] Heart rate 2022-10-07 20:05:00 96 /min [facility] Body height 2022-10-07 20:05:00 152.4 [...] EXTERNAL PROVIDER RECORDS 2022-10-21 05:01:00 Doctor Unassigned, [place] [facility] RADIOLOGY DOCUMENTATION 2022-10-11 05:01:00 Doct or Unassigned, [place] [facility] MEDICAL RELEASE/CLEARANCE FORMS 2022-10-09 05:01:00 Doctor Unassigned, [place] [facility] Plan of Care Planned Activity Planned Date Details Comments Source Goal Plan of Care Note [code = 36118-7] Goal Plan of Care Note [code = 51399-9] Goal Plan of Care Note [code = 52365-9] Goal Plan of Care Note [code = 38152-9] Goal Plan of Care Note [code = 96334-8] Goal Plan of Care Note [code = 88958-5] Goal Plan of Care Note [code = 00290-3] Goal Plan of Care Note [code = 06809-7] Goal Plan of Care Note [code = 89587-0] Goal Plan of Care Note [code = 96076-2] Goal Plan of Care Note [code = 68717-3] Goal Plan of Care Note [code = 72625-1] Goal Plan of Care Note [code = 69140-8] Goal Plan of Care Note [code = 88159-6] Goal Plan of Care Note [code = 02680-4] Goal Plan of Care Note [code = 33289-1] Goal Plan of Care Note [code = 35407-9] Goal Plan of Care Note [code = 44133-6] Goal Plan of Care Note [code = 40283-6] Goal Plan of Care Note [code = 19984-5] Goal Plan of Care Note [code = 26968-6] Goal Plan of Care Note [code = 05426-1] Goal Plan of Care Note [code = 65602-0] Goal Plan of Care Note [code = 79389-4] Goal Plan of Care Note [code = 20150-8] Goal Plan of Care Note [code = 40616-7] Goal Plan of Care Note [code = 11235-2] Goal Plan of Care Note [code = 11962-1] Goal Plan of Care Note [code = 10253-1] Goal Plan of Care Note [code = 19488-5] Goal Plan of Care Note [code = 10980-8] Goal Plan of Care Note [code = 15718-1] Goal Plan of Care Note [code = 61528-7] Goal Plan of Care Note [code = 41035-7] Goal Plan of Care Note [code = 66604-8] Goal Plan of Care Note [code = 26139-9] Goal Plan of Care Note [code = 81013-8] Goal Plan of Care Note [code = 38271-8] Goal Plan of Care Note [code = 97385-6] Goal Plan of Care Note [code = 91352-4] Goal Plan of Care Note [code = 55876-5] Goal Plan of Care Note [code = 97128-1] Goal Plan of Care Note [code = 79776-2] Goal Plan of Care Note [code = 91343-8] Goal Plan of Care Note [code = 42136-5] Goal Plan of Care Note [code = 62723-8] Goal Plan of Care Note [code = 42777-6] Goal Plan of Care Note [code = 09458-8] Goal Plan of Care Note [code = 06253-4] Goal Plan of Care Note [code = 41503-8] Goal Plan of Care Note [code = 92412-5] Goal Plan of Care Note [code = 00699-5] Goal Plan of Care Note [code = 53795-5] Goal Plan of Care Note [code = 00173-4] Goal Plan of Care Note [code = 09430-9] Goal Plan of Care Note [code = 39044-4] Goal Plan of Care Note [code = 06821-9] Goal Plan of Care Note [code = 95512-3] Goal Plan of Care Note [code = 24483-6] Goal Plan of Care Note [code = 82629-0] Goal Plan of Care Note [code = 45219-8] Goal Plan of Care Note [code = 06957-3] Goal Plan of Care Note [code = 80585-4] Goal Plan of Care Note [code = 46893-0] Goal Plan of Care Note [code = 30043-2] Goal Plan of Care Note [code = 29055-2] Goal Plan of Care Note [code = 52337-7] Goal Plan of Care Note [code = 06217-1] Goal Plan of Care Note [code = 19093-5] Goal Plan of Care Note [code = 22762-1] Goal Plan of Care Note [code = 09390-6] Goal Plan of Care Note [code = 57804-0] Goal Plan of Care Note [code = 58563-2] Goal Plan of Care Note [code = 26758-1] Goal Plan of Care Note [code = 14875-9] Goal Plan of Care Note [code = 88408-4] Goal Plan of Care Note [code = 98453-6] Goal Plan of Care Note [code = 94873-2] Goal Plan of Care Note [code = 07260-7] Goal Plan of Care Note [code = 16366-7] Goal Plan of Care Note [code = 64425-1] Goal Plan of Care Note [code = 33589-3] Goal Plan of Care Note [code = 79188-3] Encounters Start Date/Time End Date/Time Encounter Type Admission Type Attending [facility] Facility Care Department Encounter ID Source 2024-03-16 16:43:16 2024-03-16 16:43:16 Outpatient [facility] [id number] Jaden F Kris 2024-02-25 10:41:50 2024-02-25 10:41:50 Outpatient [facility] 1009 Jaden Betancourt Kris 2024-02-25 00:00:00 2024-02-25 00:00:00 Outpatient Visit [facility] [id number] Jaden Betancourt Kris 2024-02-06 13:53:09 2024-02-06 13:53:09 Outpatient [facility] [id number] Jaden Betancourt Kris 2024-02-06 00:00:00 2024-02-06 00:00:00 Outpatient Visit [facility] [id number] Jaden Ponce 2024-01-15 15:58:11 2024-01-15 15:58:11 Outpatient [facility] 29 Jaden Ponce 2023-12-15 08:41:47 2023-12-15 08:41:47 Outpatient [facility] 728 Jaden Betancourt Kris 2023-11-13 00:00:00 2023-11-13 00:00:00 Outpatient Visit [facility] [id number] Jaden Betancourt Kris 2023-11-10 14:10:07 2023-11-10 14:10:07 Outpatient [facility] 623 Jaden Betancourt Kris 2023-10-14 15:51:09 2023-10-14 15:51:09 Outpatient SFA [facility] 527 Jaden Betancourt Adel 2023-09-15 16:15:18 2023-09-15 16:15:18 Outpatient [facility] [id number] Jaden Betancourt Adel 2023-08-26 15:52:22 2023-08-26 15:52:22 Outpatient SFA [facility] 9 Jaden Betancourt Adel 2023-08-14 09:36:17 2023-08-14 09:36:17 Outpatient [facility] [id number] Jaden Betancourt Adel 2023-07-14 14:28:32 2023-07-14 14:28:32 Outpatient [facility] [id number] Jaden Betancourt Adel 2023-06-18 10:02:18 2023-06-18 10:02:18 Outpatient [facility] [id number] Jaden Betancourt Adel 2023-06-17 17:18:38 2023-06-17 17:18:38 Outpatient [facility] [id number] Jaden Betancourt Adel 2023-06-12 15:47:52 2023-06-12 15:47:52 Outpatient [facility] 124 Jaden Betancourt Adel 2023-04-28 14:22:48 2023-04-28 14:22:48 Outpatient [facility] 1211 Jaden Betancourt Kris 2023-03-19 16:04:06 2023-03-19 16:04:06 Outpatient [facility] [id number] Jaden Ponce 2023-02-27 13:54:38 2023-02-27 13:54:38 Outpatient [facility] [id number] Jaden Ponce 2023-02-18 14:41:08 2023-02-18 14:41:08 Outpatient [facility] [id number] Jaden Betancourt Adel 2023-01-30 17:52:20 2023-01-30 17:52:20 Outpatient [facility] [id number] Jaden Betancourt Adel 2023-01-14 12:11:29 2023-01-14 12:11:29 Outpatient [facility] [id number] Jaden Betancourt Adel 2022-12-11 17:36:37 2022-12-11 17:36:37 Outpatient [facility] [id number] Jaden Betancourt Adel 2022-10-21 00:00:00 2022-10-21 00:00:00 Orders Only Doctor Unassigned, [place] [address]114 350.1.13.10 4.2.7.2.686 [id number] [facility] 2022-10-15 00:00:00 2022-10-15 00:00:00 Telephone Maegan Head [facility] 1.2.840.114 350.1.13.10 4.2.7.2.686 [id number] [facility] 2022-10-11 00:00:00 2022-10-11 00:00:00 Orders Only Doctor Unassigned, [place] [id number] 350.1.13.10 4.2.7.2.686 [id number] [facility] 2022-10-11 00:00:00 2022-10-11 00:00:00 Telephone Maegan Head [facility] 1.0.114 350.1.13.10 4.2.7.2.686 [id number] [facility] 2022-10-09 00:00:00 2022-10-09 00:00:00 Orders Only Doctor Unassigned, [place] [facility] 1.840.114 350.1.13.10 4.2.7.2.686 [id number] [facility] 2022-10-09 00:00:00 2022-10-09 00:00:00 Telephone Maegan Head [facility] 1..114 350.1.13.10 4.2.7.2.686 [id number] [facility] 2022-10-07 14:30:00 2022-10-07 16:47:40 Outpatient R MAEGAN HEAD [facility] [id number] [facility] 2022-10-07 14:30:00 2022-10-07 16:47:40 Office Visit Maegan Head [facility] 1.0.114 350.1.13.10 4.2.7.2.686 [id number] [facility] 2022-10-07 00:00:00 2022-10-07 00:00:00 Telephone Maegan Head [facility] 1.0.114 350.1.13.10 4.2.7.2.686 [id number] [facility] 2022-10-02 00:00:00 2022-10-02 00:00:00 Telephone Maegan Head [facility] 1.0.114 350.1.13.10 4.2.7.2.686 [id number] [facility] 2022-08-20 13:43:24 2022-08-20 13:43:24 Outpatient [facility] [id number] Jaden Ponce 2022-05-29 14:07:16 2022-05-29 14:07:16 Outpatient [facility] 0111 Jaden Ponce 2022-04-30 15:19:29 2022-04-30 15:19:29 Outpatient [facility] 1213 Jaden Ponce 2022-04-30 00:00:00 2022-04-30 00:00:00 Outpatient Visit [id number] 2022-03-27 00:00:00 2022-03-27 00:00:00 Outpatient DMG DMG [id number] [facility] 2022-03-26 09:54:48 2022-03-26 09:54:48 Outpatient [facility] 1108 Jaden Ponce 2022-03-26 00:00:00 2022-03-26 00:00:00 Outpatient Visit [id number] 2022-02-25 11:04:30 2022-02-25 11:04:30 Outpatient [facility] [id number] Jaden Ponce 2022-02-25 00:00:00 2022-02-25 00:00:00 Outpatient Visit [id number] 2021-11-30 00:00:00 2021-11-30 00:00:00 Outpatient Visit [id number] 2021-11-27 04:42:00 2021-11-27 04:42:00 Outpatient [facility] [id number] 0712 Qian arrington [facility] h Program Results Test Description Test Time Test Comments Results Result Co mments Source TSH, THIRD [id number] 07:15:39* Test Item Value Reference Range Interpretation Comme nts TSH, THIRD GENERATION (test code = 2821) 0.265 UIU/ML 0.400-4.100 L C-REACTIVE [id number] 05:45:48* Test Item Value Reference Range Interpretation Comme nts C-REACTIVE PROTEIN (test cod e = 3513) <0.3 MG/DL <0.5 COMPREHENSIVE METABOLIC [id number] 05:45:07* Test Item Value Reference Range Interpretation Comme nts GLUCOSE (test code = 2217) 178 MG/DL 70-99 H BUN (test code = 2208) 15 MG/DL 8-23 CREATININE (test code = 2214) 0.47 MG/DL 0.60-1.30 L eGFR (2020 CKD-EPI) (test code = 08539) 104 ML/MIN/1.73 >60 CALC BUN/CREAT (test code [...] code = 2219) 17 U/L 5-40 HEMOGLOBIN [id number] 04:57:52* Test Item Value Reference Range Interpretation Comme nts HEMOGLOBIN A1c (test code = 65485) 5.8 % 4.2-5.6 H [employer] GUIDELINES FOR HGB A1C: [...] CONSIDER ALTERNATE TESTING OR LABORATORY CONSULTATION. SEDIMENTATION [id number] 04:22:25* Test Item Value Reference Range Interpretation Comme nts SEDIMENTATION RATE (test cod e = 1017) 2 MM/HOUR 0-20 CBC W/AUTO DIFF WITH [id number] 02:36:55* Test Item Value Reference Range Interpretation [...] = 1065) 0.0 /100 WBC'S See_Comment [Automated [employer] ge] The system which generated this result [...] H ABS NUCLEATED RBCS (test code = 61261) 0.00 K/UL 0.00-0.11 HEMOGLOBIN [id number] 00:00:00* Test Item Value Reference Range Interpretation Comme nts HEMOGLOBIN A1c (test code = 57403) 5.8 % Jaden F KrisCOMPREHENSIVE METABOLIC [id number] 00:00:00* Test Item Value Reference Range Interpretation Comme nts GLUCOSE (test code = 2217) 178 MG/DL BUN (test code = 2208) 15 MG/DL CREATININE (test code = 2214) 0.47 MG/DL eGFR (2020 CKD-EPI) (test code = 90299) 104 ML/MIN/1.73 CALC BUN/CREAT (test code = [...] = 2219) 17 U/L Jaden May, THIRD [id number] 00:00:00* Test Item Value Reference Range Interpretation Comme nts TSH, THIRD GENERATION (test code = 2821) 0.265 UIU/ML Jaden PonceSEDIMENTATION [id number] 00:00:00* Test Item Value Reference Range Interpretation Comme nts SEDIMENTATION RATE (test cod e = 1017) 2 MM/HOUR Jaden PonceC-REACTIVE [id number] 00:00:00* Test Item Value Reference Range Interpretation Comme nts C-REACTIVE PROTEIN (test cod e = 3513) <0.3 MG/DL Jaden PonceVITAMIN D, 25 [id number] 00:00:00* Test Item Value Reference Range Interpretation Comme nts VITAMIN D, 25 OH (test code = 4958) 34 NG/ML Jaden PonceCBC W/AUTO [id number] 00:00:00* Test Item Value Reference Range Interpretation [...] ABS NUCLEATED RBCS (test cod e = 02025) 0.00 K/UL Jaden PonceHEMOGLOBIN [id number] 00:00:00* Test Item Value Reference Range Interpretation Comme nts HEMOGLOBIN A1c (test code = 23635) 5.8 % Jaden PonceCOMPREHENSIVE METABOLIC [id number] 00:00:00* Test Item Value Reference Range Interpretation Comme nts GLUCOSE (test code = 2217) 178 MG/DL BUN (test code = 2208) 15 MG/DL CREATININE (test code = 2214) 0.47 MG/DL eGFR (2020 CKD-EPI) (test code = 87480) 104 ML/MIN/1.73 CALC BUN/CREAT (test code = [...] = 2219) 17 U/L Jaden PonceTSH, THIRD [id number] 00:00:00* Test Item Value Reference Range Interpretation Comme nts TSH, THIRD GENERATION (test code = 2821) 0.265 UIU/ML Jaedn PonceSEDIMENTATION [id number] 00:00:00* Test Item Value Reference Range Interpretation Comme nts SEDIMENTATION RATE (test cod e = 1017) 2 MM/HOUR Jaden PonceC-REACTIVE [id number] 00:00:00* Test Item Value Reference Range Interpretation Comme nts C-REACTIVE PROTEIN (test cod e = 3513) <0.3 MG/DL Jaden PonceVITAMIN D, 25 [id number] 00:00:00* Test Item Value Reference Range Interpretation Comme adrián VITAMIN D, 25 OH (test code = 4958) 34 NG/ML Jaden PonceCBC W/AUTO [id number] 00:00:00* Test Item Value Reference Range Interpretation [...] ABS NUCLEATED RBCS (test cod e = 64551) 0.00 K/UL Jaden PonceHEMOGLOBIN [id number] 00:00:00* Test Item Value Reference Range Interpretation Comme adrián HEMOGLOBIN A1c (test code = 20630) 5.8 % Jaden PonceCOMPREHENSIVE METABOLIC [id number] 00:00:00* Test Item Value Reference Range Interpretation Comme nts GLUCOSE (test code = 7) 178 MG/DL BUN (test code = 8) 15 MG/DL CREATININE (test code = 2214) 0.47 MG/DL eGFR (2020 CKD-EPI) (test code = 25962) 104 ML/MIN/1.73 CALC BUN/CREAT (test code = [...] = 2219) 17 U/L Jaden PonceTSH, THIRD [id number] 00:00:00* Test Item Value Reference Range Interpretation Comme nts TSH, THIRD GENERATION (test code = 2821) 0.265 UIU/ML Jaden PonceSEDIMENTATION [id number] 00:00:00* Test Item Value Reference Range Interpretation Comme nts SEDIMENTATION RATE (test cod e = 1017) 2 MM/HOUR Jaden PonceC-REACTIVE [id number] 00:00:00* Test Item Value Reference Range Interpretation Comme nts C-REACTIVE PROTEIN (test cod e = 3513) <0.3 MG/DL Jaden PonceVITAMIN D, 25 [id number] 00:00:00* Test Item Value Reference Range Interpretation Comme nts VITAMIN D, 25 OH (test code = 4958) 34 NG/ML Jaden PonceCBC W/AUTO [id number] 00:00:00* Test Item Value Reference Range Interpretation [...] ABS NUCLEATED RBCS (test cod e = 99638) 0.00 K/UL Jaden Betancourt AustinLIPID [id number] 06:45:40* Test Item Value Reference Range Interpretation [...] SPECIMENS. FOR MOREINFORMATION, SEE CLIENT ANNOUNCEMENT AT [email or web address] RISK RATIO LDL/HDL (test code = 223) 1.58 RATIO <3.22 COMPREHENSIVE METABOLIC [id number] 06:45:40* Test Item Value Reference Range Interpretation Comme nts GLUCOSE (test code = 7) 185 MG/DL 70-99 H BUN (test code = 2207) 10 MG/DL 8-23 CREATININE (test code = 2213) 0.55 MG/DL 0.60-1.30 L eGFR (2020 CKD-EPI) (test code = 91365) 101 ML/MIN/1.73 >60 CALC BUN/CREAT (test code [...] = 2219) 17 U/L 5-40 [facility] has impo rtant pathology staff changes effective 07/17/2022. New pathology staff will provide uninterrupted, excellent patient care and clinical consultation. See URL: [email or web address]. UNLESS OTHERWISE INDICATED, ALL TESTING PERFORMED AT [facility] [address] [place] [address] DEFECTIVE CIGARETTE SLITTER: JOEY SILVA M.D. [place] NUMBER [id number] [facility]. [id number] HEMOGLOBIN [id number] 03:45:25* Test Item Value Reference Range Interpretation Comme nts HEMOGLOBIN A1c (test code = 66166) 6.1 % 4.2-5.6 H [employer] GUIDELINES FOR HGB A1C: [...] OR LABORATORY CONSULTATION. CBC W/AUTO DIFF WITH [id number] 02:39:50* Test Item Value Reference Range Interpretation [...] = 1065) 0.0 /100 WBC'S See_Comment [Automated [employer] ge] The system which generated this result [...] H ABS NUCLEATED RBCS (test code = 48245) 0.00 K/UL 0.00-0.11 HEMOGLOBIN [id number] 00:00:00* Test Item Value Reference Range Interpretation Comme nts HEMOGLOBIN A1c (test code = 87978) 6.1 % Jaden PonceLIPID [id number] 00:00:00* Test Item Value Reference Range Interpretation Comme nts CHOLESTEROL (test code = 2210) 219 MG/DL TRIGLYCERIDES (test code = 2232) 85 MG/DL HDL CHOLESTEROL (test code = 2220) 78 MG/DL CALC LDL CHOL (test code = 2237) 123 MG/DL RISK RATIO LDL/HDL (test cod e = 2238) 1.58 RATIO Jaden Betancourt KrisCOMPREHENSIVE METABOLIC [id number] 00:00:00* Test Item Value Reference Range Interpretation Comme nts GLUCOSE (test code = 2217) 185 MG/DL BUN (test code = 2208) 10 MG/DL CREATININE (test code = 2214) 0.55 MG/DL eGFR (2020 CKD-EPI) (test code = 95194) 101 ML/MIN/1.73 CALC BUN/CREAT (test code = [...] = 2219) 17 U/L Jaden PonceCBC W/AUTO [id number] 00:00:00* Test Item Value Reference Range Interpretation [...] ABS NUCLEATED RBCS (test cod e = 24267) 0.00 K/UL Jaden PonceHEMOGLOBIN [id number] 00:00:00* Test Item Value Reference Range Interpretation Comme nts HEMOGLOBIN A1c (test code = 45886) 6.1 % Jaden PonceLIPID [id number] 00:00:00* Test Item Value Reference Range Interpretation Comme nts CHOLESTEROL (test code = 2210) 219 MG/DL TRIGLYCERIDES (test code = 2232) 85 MG/DL HDL CHOLESTEROL (test code = 2220) 78 MG/DL CALC LDL CHOL (test code = 2237) 123 MG/DL RISK RATIO LDL/HDL (test cod e = 2238) 1.58 RATIO Jaden PonceCOMPREHENSIVE METABOLIC [id number] 00:00:00* Test Item Value Reference Range Interpretation Comme nts GLUCOSE (test code = 2217) 185 MG/DL BUN (test code = 2208) 10 MG/DL CREATININE (test code = 2214) 0.55 MG/DL eGFR (2020 CKD-EPI) (test code = 48774) 101 ML/MIN/1.73 CALC BUN/CREAT (test code = [...] = 2219) 17 U/L Jaden PonceCBC W/AUTO [id number] 00:00:00* Test Item Value Reference Range Interpretation [...] ABS NUCLEATED RBCS (test cod e = 33572) 0.00 K/UL Jaden PonceHEMOGLOBIN [id number] 00:00:00* Test Item Value Reference Range Interpretation Comme nts HEMOGLOBIN A1c (test code = 12150) 6.1 % Jaden PonceLIPID [id number] 00:00:00* Test Item Value Reference Range Interpretation Comme nts CHOLESTEROL (test code = 2210) 219 MG/DL TRIGLYCERIDES (test code = 2232) 85 MG/DL HDL CHOLESTEROL (test code = 2220) 78 MG/DL CALC LDL CHOL (test code = 2237) 123 MG/DL RISK RATIO LDL/HDL (test cod e = 2238) 1.58 RATIO Jaden PonceCOMPREHENSIVE METABOLIC [id number] 00:00:00* Test Item Value Reference Range Interpretation Comme nts GLUCOSE (test code = 2217) 185 MG/DL BUN (test code = 2208) 10 MG/DL CREATININE (test code = 2214) 0.55 MG/DL eGFR (2020 CKD-EPI) (test code = 01699) 101 ML/MIN/1.73 CALC BUN/CREAT (test code = [...] (test code = 2219) 17 U/L Jaden PocneC W/AUTO [id number] 00:00:00* Test Item Value Reference Range Interpretation [...] ABS NUCLEATED RBCS (test cod e = 70217) 0.00 K/UL Jaden F AustinOCCULT BLD,FECAL,IMMUNOASSAY [id number] 15:52:05* Test Item Value Reference Range Interpretation Comme nts OCCULT BLD, FECAL (test code = 52359) NEGATIVE NEGATIVE [facility] has important pathology staff changes effective 07/17/2022. New pathology staff will provide uninterrupted, excellent patient care and clinical consultation. See URL: [email or web address]. UNLESS OTHERWISE INDICATED, ALL TESTING PERFORMED AT [facility] [address] [place] [address] CLIA: [id number], CAP: [id number] OCCULT BLD,FECAL,IMMUNOASSAY [id number] 00:00:00* Test Item Value Reference Range Interpretation Comme nts OCCULT BLD, FECAL (test code = 54547) NEGATIVE Jaden PonceOCCULT BLD,FECAL,IMMUNOASSAY [id number] 00:00:00* Test Item Value Reference Range Interpretation Comme nts OCCULT BLD, FECAL (test code = 47148) NEGATIVE Jaden PonceOCCULT BLD,FECAL,IMMUNOASSAY [id number] 00:00:00* Test Item Value Reference Range Interpretation Comme nts OCCULT BLD, FECAL (test code = 08158) NEGATIVE Jaden PonceTSH, THIRD [id number] 06:49:25* Test Item Value Reference Range Interpretation Comme adrián TSH, THIRD GENERATION (test code = 2821) 1.600 UIU/ML 0.400-4.100 [id number] 06:45:12* Test Item Value Reference Range Interpretation Comme nts NT-proBNP (test code = 92167) <50 PG/ML SEE BELOW If NT-ProBNP is less than 300 PG/ML, heart failure is unlikely for allages. Age.................Heart Failure Likely <50 Years...........>=450 PG/ML 50-75 Years.........>=900 PG/ML > 75 Years..........>=1800 PG/ML Methodology: Alyse Kimani Electrochemiluminescense Immunoassay UNLESS OTHERWISE INDICATED, ALL TESTING [facility]MED [facility] [address] [place] [address] DEFECTIVE CIGARETTE SLITTER: ELIAS ESPANA M.D. CLIA NUMBER [id number] [facility] [place]. [id number] COMPREHENSIVE METABOLIC [id number] 04:56:47* Test Item Value Reference Range Interpretation Comme nts GLUCOSE (test code = 7) 137 MG/DL 70-99 H BUN (test code = 2207) 12 MG/DL 8-23 CREATININE (test code = 2213) 0.60 MG/DL 0.60-1.30 eGFR (2020 CKD-EPI) (test code = 13389) 99 ML/MIN/1.73 >60 CALC BUN/CREAT (test code [...] code = 2219) 11 U/L 5-40 LIPID [id number] 04:56:47* Test Item Value Reference Range Interpretation [...] SPECIMENS. FOR MOREINFORMATION, SEE CLIENT ANNOUNCEMENT AT [email or web address] RISK RATIO LDL/HDL (test code = 2238) 2.59 RATIO <3.22 HEMOGLOBIN [id number] 04:00:46* Test Item Value Reference Range Interpretation Comme nts HEMOGLOBIN A1c (test code = 24006) 5.9 % 4.2-5.6 H CBC W/AUTO DIFF WITH [id number] 02:37:32* Test Item Value Reference Range Interpretation [...] = 1065) 0.0 /100 WBC'S See_Comment [Automated [employer] ge] The system which generated this result [...] 0.00-0.10 ABS NUCLEATED RBCS (test code = 90237) 0.00 K/UL 0.00-0.11 CBC W/AUTO [id number] 00:00:00* Test Item Value Reference Range Interpretation [...] ABS NUCLEATED RBCS (test cod e = 21882) 0.00 K/UL Jaden F AustinCOMPREHENSIVE METABOLIC [id number] 00:00:00* Test Item Value Reference Range Interpretation Comme nts GLUCOSE (test code = 2217) 137 MG/DL BUN (test code = 2208) 12 MG/DL CREATININE (test code = 2214) 0.60 MG/DL eGFR (2020 CKD-EPI) (test co de = 21287) 99 ML/MIN/1.73 CALC BUN/CREAT (test code = [...] code = 2219) 11 U/L Jaden PonceLIPID [id number] 00:00:00* Test Item Value Reference Range Interpretation Comme nts CHOLESTEROL (test code = 2210) 236 MG/DL TRIGLYCERIDES (test code = 2232) 274 MG/DL HDL CHOLESTEROL (test code = 2220) 54 MG/DL CALC LDL CHOL (test code = 2237) 140 MG/DL RISK RATIO LDL/HDL (test cod e = 2238) 2.59 RATIO Jaden PonceTSH, THIRD [id number] 00:00:00* Test Item Value Reference Range Interpretation Comme adrián TSH, THIRD GENERATION (test code = 2821) 1.600 UIU/ML Jaden PonceRtlkwlWY-[id number] 00:00:00* Test Item Value Reference Range Interpretation Comme nts NT-proBNP (test code = 24722) <50 PG/ML Jaden PonceHEMOGLOBIN [id number] 00:00:00* Test Item Value Reference Range Interpretation Comme nts HEMOGLOBIN A1c (test code = 69710) 5.9 % Jaden oPnceCBC W/AUTO [id number] 00:00:00* Test Item Value Reference Range Interpretation [...] ABS NUCLEATED RBCS (test cod e = 55484) 0.00 K/UL Jaden PonceCOMPREHENSIVE METABOLIC [id number] 00:00:00* Test Item Value Reference Range Interpretation Comme nts GLUCOSE (test code = 2217) 137 MG/DL BUN (test code = 2208) 12 MG/DL CREATININE (test code = 2214) 0.60 MG/DL eGFR (2020 CKD-EPI) (test co de = 27608) 99 ML/MIN/1.73 CALC BUN/CREAT (test code = [...] code = 2219) 11 U/L Jaden PonceLIPID [id number] 00:00:00* Test Item Value Reference Range Interpretation Comme nts CHOLESTEROL (test code = 2210) 236 MG/DL TRIGLYCERIDES (test code = 2232) 274 MG/DL HDL CHOLESTEROL (test code = 2220) 54 MG/DL CALC LDL CHOL (test code = 2237) 140 MG/DL RISK RATIO LDL/HDL (test cod e = 2238) 2.59 RATIO Jaden PonceTSH, THIRD [id number] 00:00:00* Test Item Value Reference Range Interpretation Comme adrián TSH, THIRD GENERATION (test code = 2821) 1.600 UIU/ML Jaden PonceWfovqeWV-[id number] 00:00:00* Test Item Value Reference Range Interpretation Comme nts NT-proBNP (test code = 18986) <50 PG/ML Jaden PonceHEMOGLOBIN [id number] 00:00:00* Test Item Value Reference Range Interpretation Comme nts HEMOGLOBIN A1c (test code = 68491) 5.9 % Jaden PonceCBC W/AUTO [id number] 00:00:00* Test Item Value Reference Range Interpretation [...] ABS NUCLEATED RBCS (test cod e = 72078) 0.00 K/UL Jadne PonceCOMPREHENSIVE METABOLIC [id number] 00:00:00* Test Item Value Reference Range Interpretation Comme nts GLUCOSE (test code = 2217) 137 MG/DL BUN (test code = 2208) 12 MG/DL CREATININE (test code = 2214) 0.60 MG/DL eGFR (2020 CKD-EPI) (test co de = 86916) 99 ML/MIN/1.73 CALC BUN/CREAT (test code = [...] code = 2219) 11 U/L Jaden PonceLIPID [id number] 00:00:00* Test Item Value Reference Range Interpretation Comme nts CHOLESTEROL (test code = 2210) 236 MG/DL TRIGLYCERIDES (test code = 2232) 274 MG/DL HDL CHOLESTEROL (test code = 2220) 54 MG/DL CALC LDL CHOL (test code = 2237) 140 MG/DL RISK RATIO LDL/HDL (test cod e = 2238) 2.59 RATIO Jaden PonceTSH, THIRD [id number] 00:00:00* Test Item Value Reference Range Interpretation Comme adrián TSH, THIRD GENERATION (test code = 2821) 1.600 UIU/ML Jaden PonceLiqciiDS-[id number] 00:00:00* Test Item Value Reference Range Interpretation Comme adrián NT-proBNP (test code = 07579) <50 PG/ML Jaden PonceHEMOGLOBIN [id number] 00:00:00* Test Item Value Reference Range Interpretation Comme nts HEMOGLOBIN A1c (test code = 39469) 5.9 % Jaden PonceHEMOGLOBIN [id number] 00:00:00* Test Item Value Reference Range Interpretation Comme adrián HEMOGLOBIN A1c (test code = 91623) 5.9 % CBC W/AUTO [id number] 00:00:00* Test Item Value Reference Range Interpretation [...] ABS NUCLEATED RBCS (test cod e = 74656) 0.00 K/UL COMPREHENSIVE METABOLIC [id number] 00:00:00* Test Item Value Reference Range Interpretation Comme nts GLUCOSE (test code = 2217) 137 MG/DL BUN (test code = 2208) 12 MG/DL CREATININE (test code = 2214) 0.60 MG/DL eGFR (2020 CKD-EPI) (test co de = 96713) 99 ML/MIN/1.73 CALC BUN/CREAT (test code = [...] (test code = 2219) 11 U/L LIPID [id number] 00:00:00* Test Item Value Reference Range Interpretation Comme nts CHOLESTEROL (test code = 2210) 236 MG/DL TRIGLYCERIDES (test code = 2232) 274 MG/DL HDL CHOLESTEROL (test code = 2220) 54 MG/DL CALC LDL CHOL (test code = 2237) 140 MG/DL RISK RATIO LDL/HDL (test cod e = 2238) 2.59 RATIO TSH, THIRD [id number] 00:00:00* Test Item Value Reference Range Interpretation Comme nts TSH, THIRD GENERATION (test code = 2821) 1.600 UIU/ML [id number] 00:00:00* Test Item Value Reference Range Interpretation Comme nts NT-proBNP (test code = 77778) <50 PG/ML HEMOGLOBIN [id number] 00:00:00* Test Item Value Reference Range Interpretation Comme nts HEMOGLOBIN A1c (test code = 47266) 5.9 % CBC W/AUTO [id number] 00:00:00* Test Item Value Reference Range Interpretation [...] ABS NUCLEATED RBCS (test cod e = 79877) 0.00 K/UL COMPREHENSIVE METABOLIC [id number] 00:00:00* Test Item Value Reference Range Interpretation Comme nts GLUCOSE (test code = 2217) 137 MG/DL BUN (test code = 2208) 12 MG/DL CREATININE (test code = 2214) 0.60 MG/DL eGFR (2020 CKD-EPI) (test co de = 19407) 99 ML/MIN/1.73 CALC BUN/CREAT (test code = [...] (test code = 2219) 11 U/L LIPID [id number] 00:00:00* Test Item Value Reference Range Interpretation Comme nts CHOLESTEROL (test code = 2210) 236 MG/DL TRIGLYCERIDES (test code = 2232) 274 MG/DL HDL CHOLESTEROL (test code = 2220) 54 MG/DL CALC LDL CHOL (test code = 2237) 140 MG/DL RISK RATIO LDL/HDL (test cod e = 2238) 2.59 RATIO TSH, THIRD [id number] 00:00:00* Test Item Value Reference Range Interpretation Comme nts TSH, THIRD GENERATION (test code = 2821) 1.600 UIU/ML [id number] 00:00:00* Test Item Value Reference Range Interpretation Comme nts NT-proBNP (test code = 98829) <50 PG/ML HEMOGLOBIN [id number] 00:00:00* Test Item Value Reference Range Interpretation Comme nts HEMOGLOBIN A1c (test code = 91634) 5.9 % CBC W/AUTO [id number] 00:00:00* Test Item Value Reference Range Interpretation [...] ABS NUCLEATED RBCS (test cod e = 76737) 0.00 K/UL COMPREHENSIVE METABOLIC [id number] 00:00:00* Test Item Value Reference Range Interpretation Comme nts GLUCOSE (test code = 2217) 137 MG/DL BUN (test code = 2208) 12 MG/DL CREATININE (test code = 2214) 0.60 MG/DL eGFR (2020 CKD-EPI) (test co de = 92323) 99 ML/MIN/1.73 CALC BUN/CREAT (test code = [...] (test code = 2219) 11 U/L LIPID [id number] 00:00:00* Test Item Value Reference Range Interpretation Comme nts CHOLESTEROL (test code = 2210) 236 MG/DL TRIGLYCERIDES (test code = 2232) 274 MG/DL HDL CHOLESTEROL (test code = 2220) 54 MG/DL CALC LDL CHOL (test code = 2237) 140 MG/DL RISK RATIO LDL/HDL (test cod e = 2238) 2.59 RATIO TSH, THIRD [id number] 00:00:00* Test Item Value Reference Range Interpretation Comme nts TSH, THIRD GENERATION (test code = 2821) 1.600 UIU/ML [id number] 00:00:00* Test Item Value Reference Range Interpretation Comme nts NT-proBNP (test code = 69597) <50 PG/ML HEMOGLOBIN [id number] 00:00:00* Test Item Value Reference Range Interpretation Comme nts HEMOGLOBIN A1c (test code = 94531) 5.9 % CBC W/AUTO [id number] 00:00:00* Test Item Value Reference Range Interpretation [...] ABS NUCLEATED RBCS (test cod e = 91116) 0.00 K/UL COMPREHENSIVE METABOLIC [id number] 00:00:00* Test Item Value Reference Range Interpretation Comme nts GLUCOSE (test code = 2217) 137 MG/DL BUN (test code = 2208) 12 MG/DL CREATININE (test code = 2214) 0.60 MG/DL eGFR (2020 CKD-EPI) (test co de = 26032) 99 ML/MIN/1.73 CALC BUN/CREAT (test code = [...] (test code = 2219) 11 U/L LIPID [id number] 00:00:00* Test Item Value Reference Range Interpretation Comme nts CHOLESTEROL (test code = 2210) 236 MG/DL TRIGLYCERIDES (test code = 2232) 274 MG/DL HDL CHOLESTEROL (test code = 2220) 54 MG/DL CALC LDL CHOL (test code = 2237) 140 MG/DL RISK RATIO LDL/HDL (test cod e = 2238) 2.59 RATIO TSH, THIRD [id number] 00:00:00* Test Item Value Reference Range Interpretation Comme nts TSH, THIRD GENERATION (test code = 2821) 1.600 UIU/ML [id number] 00:00:00* Test Item Value Reference Range Interpretation Comme nts NT-proBNP (test code = 95474) <50 PG/ML CBC W/AUTO [id number] 00:00:00* Test Item Value Reference Range Interpretation [...] ABS NUCLEATED RBCS (test cod e = 24867) 0.00 K/UL Jaden F AustinCOMPREHENSIVE METABOLIC [id number] 00:00:00* Test Item Value Reference Range Interpretation Comme nts GLUCOSE (test code = 2217) 106 MG/DL BUN (test code = 220) 7 MG/DL CREATININE (test code = 2214) 0.57 MG/DL eGFR AMER. (test cod e = ) 113 ML/MIN/1.73 eGFR NON- AMER. (test code = 63639) 97 ML/MIN/1.73 CALC BUN/CREAT (test code = [...] (test code = 2219) 12 U/L Jaden [id number] 00:00:00* Test Item Value Reference Range Interpretation Comme adrián TSH, THIRD GENERATION (test code = 2821) 1.390 UIU/ML Jaden PonceHEMOGLOBIN A1c [ADDED]2021-04-05 00:00:00* Test Item Value Reference Range Interpretation Comme adrián HEMOGLOBIN A1c (test code = 28566) 5.7 % Jaden PonceLIPID [id number] 00:00:00* Test Item Value Reference Range Interpretation Comme nts CHOLESTEROL (test code = 2210) 252 MG/DL TRIGLYCERIDES (test code = 2232) 171 MG/DL HDL CHOLESTEROL (test code = 2220) 61 MG/DL CALC LDL CHOL (test code = 7) 159 MG/DL RISK RATIO LDL/HDL (test cod e = 2238) 2.61 RATIO Jaden PonceCBC W/AUTO [id number] 00:00:00* Test Item Value Reference Range Interpretation [...] ABS NUCLEATED RBCS (test cod e = 04329) 0.00 K/UL Jaden Betancourt KrisCOMPREHENSIVE METABOLIC [id number] 00:00:00* Test Item Value Reference Range Interpretation Comme nts GLUCOSE (test code = 2217) 106 MG/DL BUN (test code = 2208) 7 MG/DL CREATININE (test code = 2214) 0.57 MG/DL eGFR AMER. (test cod e = 68100) 113 ML/MIN/1.73 eGFR NON- AMER. (test code = 65807) 97 ML/MIN/1.73 CALC BUN/CREAT (test code = [...] (test code = 2219) 12 U/L Jaden [id number] 00:00:00* Test Item Value Reference Range Interpretation Comme adrián TSH, THIRD GENERATION (test code = 2821) 1.390 UIU/ML Jaden PonceHEMOGLOBIN A1c [ADDED]2021-04-05 00:00:00* Test Item Value Reference Range Interpretation Comme adrián HEMOGLOBIN A1c (test code = 13057) 5.7 % Jaden PonceLIPID [id number] 00:00:00* Test Item Value Reference Range Interpretation Comme nts CHOLESTEROL (test code = 2210) 252 MG/DL TRIGLYCERIDES (test code = 2232) 171 MG/DL HDL CHOLESTEROL (test code = 2220) 61 MG/DL CALC LDL CHOL (test code = 2237) 159 MG/DL RISK RATIO LDL/HDL (test cod e = 2238) 2.61 RATIO Jaden PonceCBC W/AUTO [id number] 00:00:00* Test Item Value Reference Range Interpretation [...] ABS NUCLEATED RBCS (test cod e = 04029) 0.00 K/UL Jaedn PonceCOMPREHENSIVE METABOLIC [id number] 00:00:00* Test Item Value Reference Range Interpretation Comme nts GLUCOSE (test code = 2217) 106 MG/DL BUN (test code = 2208) 7 MG/DL CREATININE (test code = 2214) 0.57 MG/DL eGFR AMER. (test cod e = 88188) 113 ML/MIN/1.73 eGFR NON- AMER. (test code = 18232) 97 ML/MIN/1.73 CALC BUN/CREAT (test code = [...] (test code = 2219) 12 U/L Jaden [id number] 00:00:00* Test Item Value Reference Range Interpretation Comme nts TSH, THIRD GENERATION (test code = 2821) 1.390 UIU/ML Jaden PonceHEMOGLOBIN A1c [ADDED]2021-04-05 00:00:00* Test Item Value Reference Range Interpretation Comme nts HEMOGLOBIN A1c (test code = 49308) 5.7 % Jaden PonceLIPID [id number] 00:00:00* Test Item Value Reference Range Interpretation Comme nts CHOLESTEROL (test code = 2210) 252 MG/DL TRIGLYCERIDES (test code = 2232) 171 MG/DL HDL CHOLESTEROL (test code = 2220) 61 MG/DL CALC LDL CHOL (test code = 2237) 159 MG/DL RISK RATIO LDL/HDL (test cod e = 2238) 2.61 RATIO Jaden PonceLIPID [id number] 00:00:00* Test Item Value Reference Range Interpretation Comme nts CHOLESTEROL (test code = 2210) 252 MG/DL TRIGLYCERIDES (test code = 2232) 171 MG/DL HDL CHOLESTEROL (test code = 2220) 61 MG/DL CALC LDL CHOL (test code = 2237) 159 MG/DL RISK RATIO LDL/HDL (test cod e = 2238) 2.61 RATIO CBC W/AUTO [id number] 00:00:00* Test Item Value Reference Range Interpretation [...] ABS NUCLEATED RBCS (test cod e = 52478) 0.00 K/UL COMPREHENSIVE METABOLIC [id number] 00:00:00* Test Item Value Reference Range Interpretation Comme nts GLUCOSE (test code = 2217) 106 MG/DL BUN (test code = 2208) 7 MG/DL CREATININE (test code = 2214) 0.57 MG/DL eGFR AMER. (test cod e = 30452) 113 ML/MIN/1.73 eGFR NON- AMER. (test code = 29466) 97 ML/MIN/1.73 CALC BUN/CREAT (test code = [...] ALT (test code = 2219) 12 U/L [id number] 00:00:00* Test Item Value Reference Range Interpretation Comme nts TSH, THIRD GENERATION (test code = 2821) 1.390 UIU/ML HEMOGLOBIN A1c [ADDED]2021-04-05 00:00:00* Test Item Value Reference Range Interpretation Comme nts HEMOGLOBIN A1c (test code = 72397) 5.7 % LIPID [id number] 00:00:00* Test Item Value Reference Range Interpretation Comme nts CHOLESTEROL (test code = 2210) 252 MG/DL TRIGLYCERIDES (test code = 2232) 171 MG/DL HDL CHOLESTEROL (test code = 2220) 61 MG/DL CALC LDL CHOL (test code = 2237) 159 MG/DL RISK RATIO LDL/HDL (test cod e = 2238) 2.61 RATIO CBC W/AUTO [id number] 00:00:00* Test Item Value Reference Range Interpretation [...] ABS NUCLEATED RBCS (test cod e = ) 0.00 K/UL COMPREHENSIVE METABOLIC [id number] 00:00:00* Test Item Value Reference Range Interpretation Comme nts GLUCOSE (test code = 2217) 106 MG/DL BUN (test code = 2208) 7 MG/DL CREATININE (test code = 2214) 0.57 MG/DL eGFR AMER. (test cod e = 70611) 113 ML/MIN/1.73 eGFR NON- AMER. (test code = 02582) 97 ML/MIN/1.73 CALC BUN/CREAT (test code = [...] ALT (test code = 221) 12 U/L [id number] 00:00:00* Test Item Value Reference Range Interpretation Comme nts TSH, THIRD GENERATION (test code = 2821) 1.390 UIU/ML HEMOGLOBIN A1c [ADDED]2021-04-05 00:00:00* Test Item Value Reference Range Interpretation Comme nts HEMOGLOBIN A1c (test code = 58501) 5.7 % LIPID [id number] 00:00:00* Test Item Value Reference Range Interpretation Comme nts CHOLESTEROL (test code = 2210) 252 MG/DL TRIGLYCERIDES (test code = 2232) 171 MG/DL HDL CHOLESTEROL (test code = 2220) 61 MG/DL CALC LDL CHOL (test code = 2237) 159 MG/DL RISK RATIO LDL/HDL (test cod e = 2238) 2.61 RATIO CBC W/AUTO [id number] 00:00:00* Test Item Value Reference Range Interpretation [...] ABS NUCLEATED RBCS (test cod e = 63140) 0.00 K/UL COMPREHENSIVE METABOLIC [id number] 00:00:00* Test Item Value Reference Range Interpretation Comme nts GLUCOSE (test code = 2217) 106 MG/DL BUN (test code = 2208) 7 MG/DL CREATININE (test code = 2214) 0.57 MG/DL eGFR AMER. (test cod e = 93995) 113 ML/MIN/1.73 eGFR NON- AMER. (test code = 49153) 97 ML/MIN/1.73 CALC BUN/CREAT (test code = [...] ALT (test code = 2219) 12 U/L [id number] 00:00:00* Test Item Value Reference Range Interpretation Comme nts TSH, THIRD GENERATION (test code = 2821) 1.390 UIU/ML HEMOGLOBIN A1c [ADDED]2021-04-05 00:00:00* Test Item Value Reference Range Interpretation Comme nts HEMOGLOBIN A1c (test code = 91486) 5.7 % LIPID [id number] 00:00:00* Test Item Value Reference Range Interpretation Comme nts CHOLESTEROL (test code = 2210) 252 MG/DL TRIGLYCERIDES (test code = 2232) 171 MG/DL HDL CHOLESTEROL (test code = 2220) 61 MG/DL CALC LDL CHOL (test code = 2237) 159 MG/DL RISK RATIO LDL/HDL (test cod e = 2238) 2.61 RATIO CBC W/AUTO [id number] 00:00:00* Test Item Value Reference Range Interpretation [...] ABS NUCLEATED RBCS (test cod e = 00338) 0.00 K/UL COMPREHENSIVE METABOLIC [id number] 00:00:00* Test Item Value Reference Range Interpretation Comme nts GLUCOSE (test code = 2217) 106 MG/DL BUN (test code = 2208) 7 MG/DL CREATININE (test code = 2214) 0.57 MG/DL eGFR AMER. (test cod e = 00842) 113 ML/MIN/1.73 eGFR NON- AMER. (test code = 00177) 97 ML/MIN/1.73 CALC BUN/CREAT (test code = [...] ALT (test code = 2219) 12 U/L [id number] 00:00:00* Test Item Value Reference Range Interpretation Comme nts TSH, THIRD GENERATION (test code = 2821) 1.390 UIU/ML HEMOGLOBIN A1c [ADDED]2021-04-05 00:00:00* Test Item Value Reference Range Interpretation Comme nts HEMOGLOBIN A1c (test code = 59787) 5.7 % HEMOGLOBIN [id number] 00:00:00* Test Item Value Reference Range Interpretation Comme nts HEMOGLOBIN A1c (test code = 89264) 5.7 % Jaden F AustinLIPID [id number] 00:00:00* Test Item Value Reference Range Interpretation Comme nts CHOLESTEROL (test code = 2210) 166 MG/DL TRIGLYCERIDES (test code = 2232) 209 MG/DL HDL CHOLESTEROL (test code = 2220) 47 MG/DL CALC LDL CHOL (test code = 2237) 89 MG/DL RISK RATIO LDL/HDL (test cod e = 2238) 1.89 RATIO Jaden PonceCOMPREHENSIVE METABOLIC [id number] 00:00:00* Test Item Value Reference Range Interpretation Comme nts GLUCOSE (test code = 2217) 106 MG/DL BUN (test code = 2208) 10 MG/DL CREATININE (test code = 2214) 0.64 MG/DL eGFR AMER. (test cod e = 04531) 110 ML/MIN/1.73 eGFR NON- AMER. (test code = 77495) 95 ML/MIN/1.73 CALC BUN/CREAT (test code = [...] (test code = 2219) 19 U/L Jaden [id number] 00:00:00* Test Item Value Reference Range Interpretation Comme nts TSH, THIRD GENERATION (test code = 2821) 1.690 UIU/ML Jaden PonceCBC W/AUTO [id number] 00:00:00* Test Item Value Reference Range Interpretation [...] code = 1015) 249 K/UL Jaden PonceHEMOGLOBIN [id number] 00:00:00* Test Item Value Reference Range Interpretation Comme nts HEMOGLOBIN A1c (test code = 68602) 5.7 % Jaden PonceLIPID [id number] 00:00:00* Test Item Value Reference Range Interpretation Comme nts CHOLESTEROL (test code = 2210) 166 MG/DL TRIGLYCERIDES (test code = 2232) 209 MG/DL HDL CHOLESTEROL (test code = 2220) 47 MG/DL CALC LDL CHOL (test code = 2237) 89 MG/DL RISK RATIO LDL/HDL (test cod e = 2238) 1.89 RATIO Jaden PonceCOMPREHENSIVE METABOLIC [id number] 00:00:00* Test Item Value Reference Range Interpretation Comme nts GLUCOSE (test code = 2217) 106 MG/DL BUN (test code = 2208) 10 MG/DL CREATININE (test code = 2214) 0.64 MG/DL eGFR AMER. (test cod e = 80945) 110 ML/MIN/1.73 eGFR NON- AMER. (test code = 46219) 95 ML/MIN/1.73 CALC BUN/CREAT (test code = [...] (test code = 2219) 19 U/L Jaden [id number] 00:00:00* Test Item Value Reference Range Interpretation Comme nts TSH, THIRD GENERATION (test code = 2821) 1.690 UIU/ML Jaden PonceCBC W/AUTO [id number] 00:00:00* Test Item Value Reference Range Interpretation [...] code = 1015) 249 K/UL Jaden PonceHEMOGLOBIN [id number] 00:00:00* Test Item Value Reference Range Interpretation Comme adrián HEMOGLOBIN A1c (test code = 10553) 5.7 % Jaden PonceLIPID [id number] 00:00:00* Test Item Value Reference Range Interpretation Comme nts CHOLESTEROL (test code = 2210) 166 MG/DL TRIGLYCERIDES (test code = 2232) 209 MG/DL HDL CHOLESTEROL (test code = 2220) 47 MG/DL CALC LDL CHOL (test code = 2237) 89 MG/DL RISK RATIO LDL/HDL (test cod e = 2238) 1.89 RATIO Jaden PonceCOMPREHENSIVE METABOLIC [id number] 00:00:00* Test Item Value Reference Range Interpretation Comme nts GLUCOSE (test code = 2217) 106 MG/DL BUN (test code = 2208) 10 MG/DL CREATININE (test code = 2214) 0.64 MG/DL eGFR AMER. (test cod e = 20827) 110 ML/MIN/1.73 eGFR NON- AMER. (test code = 07822) 95 ML/MIN/1.73 CALC BUN/CREAT (test code = [...] (test code = 2219) 19 U/L Jaden [id number] 00:00:00* Test Item Value Reference Range Interpretation Comme nts TSH, THIRD GENERATION (test code = 2821) 1.690 UIU/ML Jaden ChapaC W/AUTO [id number] 00:00:00* Test Item Value Reference Range Interpretation [...] = 1015) 249 K/UL Jaden ChapaC W/AUTO [id number] 00:00:00* Test Item Value Reference Range Interpretation [...] (test code = 1015) 249 K/UL HEMOGLOBIN [id number] 00:00:00* Test Item Value Reference Range Interpretation Comme nts HEMOGLOBIN A1c (test code = 20851) 5.7 % LIPID [id number] 00:00:00* Test Item Value Reference Range Interpretation Comme nts CHOLESTEROL (test code = 2210) 166 MG/DL TRIGLYCERIDES (test code = 2232) 209 MG/DL HDL CHOLESTEROL (test code = 2220) 47 MG/DL CALC LDL CHOL (test code = 2237) 89 MG/DL RISK RATIO LDL/HDL (test cod e = 2238) 1.89 RATIO COMPREHENSIVE METABOLIC [id number] 00:00:00* Test Item Value Reference Range Interpretation Comme nts GLUCOSE (test code = 2217) 106 MG/DL BUN (test code = 2208) 10 MG/DL CREATININE (test code = 2214) 0.64 MG/DL eGFR AMER. (test cod e = 06238) 110 ML/MIN/1.73 eGFR NON- AMER. (test code = 95132) 95 ML/MIN/1.73 CALC BUN/CREAT (test code = [...] ALT (test code = 2219) 19 U/L [id number] 00:00:00* Test Item Value Reference Range Interpretation Comme nts TSH, THIRD GENERATION (test code = 2821) 1.690 UIU/ML CBC W/AUTO [id number] 00:00:00* Test Item Value Reference Range Interpretation [...] (test code = 1015) 249 K/UL HEMOGLOBIN [id number] 00:00:00* Test Item Value Reference Range Interpretation Comme nts HEMOGLOBIN A1c (test code = 29509) 5.7 % LIPID [id number] 00:00:00* Test Item Value Reference Range Interpretation Comme nts CHOLESTEROL (test code = 2210) 166 MG/DL TRIGLYCERIDES (test code = 2232) 209 MG/DL HDL CHOLESTEROL (test code = 2220) 47 MG/DL CALC LDL CHOL (test code = 2237) 89 MG/DL RISK RATIO LDL/HDL (test cod e = 2238) 1.89 RATIO COMPREHENSIVE METABOLIC [id number] 00:00:00* Test Item Value Reference Range Interpretation Comme nts GLUCOSE (test code = 2217) 106 MG/DL BUN (test code = 2208) 10 MG/DL CREATININE (test code = 2214) 0.64 MG/DL eGFR AMER. (test cod e = 58406) 110 ML/MIN/1.73 eGFR NON- AMER. (test code = 48472) 95 ML/MIN/1.73 CALC BUN/CREAT (test code = [...] ALT (test code = 2219) 19 U/L [id number] 00:00:00* Test Item Value Reference Range Interpretation Comme nts TSH, THIRD GENERATION (test code = 2821) 1.690 UIU/ML CBC W/AUTO [id number] 00:00:00* Test Item Value Reference Range Interpretation [...] (test code = 1015) 249 K/UL HEMOGLOBIN [id number] 00:00:00* Test Item Value Reference Range Interpretation Comme nts HEMOGLOBIN A1c (test code = 51436) 5.7 % LIPID [id number] 00:00:00* Test Item Value Reference Range Interpretation Comme nts CHOLESTEROL (test code = 2210) 166 MG/DL TRIGLYCERIDES (test code = 2232) 209 MG/DL HDL CHOLESTEROL (test code = 2220) 47 MG/DL CALC LDL CHOL (test code = 2237) 89 MG/DL RISK RATIO LDL/HDL (test cod e = 2238) 1.89 RATIO COMPREHENSIVE METABOLIC [id number] 00:00:00* Test Item Value Reference Range Interpretation Comme nts GLUCOSE (test code = 2217) 106 MG/DL BUN (test code = 2208) 10 MG/DL CREATININE (test code = 2214) 0.64 MG/DL eGFR AMER. (test cod e = 59346) 110 ML/MIN/1.73 eGFR NON- AMER. (test code = 71915) 95 ML/MIN/1.73 CALC BUN/CREAT (test code = [...] ALT (test code = 2219) 19 U/L [id number] 00:00:00* Test Item Value Reference Range Interpretation Comme nts TSH, THIRD GENERATION (test code = 2821) 1.690 UIU/ML CBC W/AUTO [id number] 00:00:00* Test Item Value Reference Range Interpretation [...] (test code = 1015) 249 K/UL HEMOGLOBIN [id number] 00:00:00* Test Item Value Reference Range Interpretation Comme nts HEMOGLOBIN A1c (test code = 07168) 5.7 % LIPID [id number] 00:00:00* Test Item Value Reference Range Interpretation Comme nts CHOLESTEROL (test code = 2210) 166 MG/DL TRIGLYCERIDES (test code = 2232) 209 MG/DL HDL CHOLESTEROL (test code = 2220) 47 MG/DL CALC LDL CHOL (test code = 2237) 89 MG/DL RISK RATIO LDL/HDL (test cod e = 2238) 1.89 RATIO COMPREHENSIVE METABOLIC [id number] 00:00:00* Test Item Value Reference Range Interpretation Comme nts GLUCOSE (test code = 2217) 106 MG/DL BUN (test code = 2208) 10 MG/DL CREATININE (test code = 2214) 0.64 MG/DL eGFR AMER. (test cod e = 80938) 110 ML/MIN/1.73 eGFR NON- AMER. (test code = 50031) 95 ML/MIN/1.73 CALC BUN/CREAT (test code = [...] ALT (test code = 2219) 19 U/L [id number] 00:00:00* Test Item Value Reference Range Interpretation Comme nts TSH, THIRD GENERATION (test code = 2821) 1.690 UIU/ML Notes Date/Time Note [facility]24-[facility]27 00:00:00 [facility]
[2024-04-15] MEDS ORDERED: NA CHLORIDE 0.9% 1,000 ML ONE ×2 (09:58→11:06)
[2024-04-15] MEDS ORDERED: ONDANSETRON 4 MG/2 ML VIAL ONE (09:58)
[2024-04-15] MEDS ORDERED: MORPHINE 4 MG/ML SYR ONE (09:58)
[2024-04-15] MEDS ORDERED: FAMOTIDINE 20 MG/2 ML VIAL IV ONE (09:58)
[2024-04-15 10:25] LABS: Absolute Basophils 0.1 K/uL (0-0.5); Absolute Lymphocytes (CBC) 1.6 K/uL (0.7-4.9); Absolute Monocytes 0.9 K/uL (0.1-1.3); Absolute Neutrophil 5.7 K/uL (1.8-8.0); Basophils % 0.6 % (0-1.3); Eosinophils % 0.1 % (0-4.4); Hematocrit 48.5 % (36.0-45.0); Hemoglobin 16.6 g/dL (12.0-15.0); Lymphocytes % 19.3 % (15.3-44.8); MCH 32.5 pg (27.0-35.0); MCHC 34.1 g/dL (32.0-36.0); MPV 7.7 fL (7.6-11.3); Monocytes % 10.8 % (3.3-12.3); Neutrophils % 69.2 % (41.7-73.7); Platelets 231 thou/uL (152-406); RBC Red Blood Cell Count 5.11 M/uL (3.86-4.86)
[2024-04-15 10:41] LABS: Albumin/Globulin Ratio 1.2 (1.1-1.8); Anion Gap 11.1 mEq/L (5.0-15.0); Bilirubin Total 1.1 mg/dL (0.2-1.0); Globulin 3.4 g/dL (2.3-3.5); Potassium 3.1 mEq/L (3.5-5.1); Protein, Total 7.4 g/dL (6.4-8.2)
[2024-04-15 10:55] LABS: Specific Gravity 1.005 (1.005-1.030); Sqamous Epithelial <5 /HPF (None Seen); Urine Bacteria 20-50 /HPF (<20); Urine Bilirubin NEGATIVE (Negative); Urine Blood Negative (Negative); Urine Clarity Turbid (Clear); Urine Color Light-Yellow (Yellow); Urine Culture Reflex Order NOT NEEDED; Urine Glucose NEGATIVE (Negative); Urine Ketones NEGATIVE (Negative); Urine Microscopic Reflex YN ORDER UMIC; Urine Nitrite NEGATIVE (Negative); Urine Protein 2+ (Negative); Urine RBC <5 /HPF (None Seen); Urine Urobilinogen Normal (Normal); Urine WBC <5 /HPF (<5)
--- NOTE | 2024-04-15 10:57 | RAD REPORT ---
EXAMINATION: CT ABDOMEN AND PELVIS WITH CONTRAST CLINICAL INDICATION: Female, 69 years old.Abd pain;Nausea / vomiting TECHNIQUE: CT abdomen and pelvis was performed, after the administration of IV contrast, as per [facility] protocol. Axial, sagittal and coronal reconstructions were obtained. One or more of the following dose reduction techniques were used: Automated exposure control, adjustment of the mA and/o r kV according to patient size, and/or iterative reconstruction. Unless otherwise specified, incidental findings do not require dedicated imaging follow-up. [id number]. COMPARISON: 03/22/2024, 06/09/2023 FINDINGS: LOWER CHEST: Mitral annular calcifications. Small pericardial effusion. LIVER: Normal in size and contour. No focal lesion. GALLBLADDER/BILE DUCT: Cholecystomy. Intrahepatic biliary duct dilatation is unchanged and probably r elated to the postcholecystectomy state.? PANCREAS: No significant abnormality. SPLEEN: Normal size. No focal lesion. ADRENALS: Adrenal thickening. No discrete mass. KIDNEYS AND URETERS: Normal size and contour. No hydronephrosis. GASTROINTESTINAL TRACT: Stomach is non-dilated. Small bowel has normal course and caliber. No colonic wall thickening or pericolonic inflammatory changes. Partial bowel resection. PERITONEUM: No ascites. LYMPH NODES: No lymphadenopathy. ABDOMINAL AORTA AND OTHER VESSELS: Normal caliber aorta and IVC. Atherosclerosis. URINARY BLADDER: Normal contour. REPRODUCTIVE ORGANS: No pathologic process MUSCULOSKELETAL: No acute or suspicious osseous abnormality. ADDITIONAL FINDINGS: None. IMPRESSION: No acute or significant abnormalities seen in the abdomen or pelvis. No significant change compared w ith 03/22/2024.
--- NOTE | 2024-04-15 11:05 | ER ---
Nurse's Notes [facility] Name: Delmi Pool Age: 69 yrs Sex: Female : 1955 Arrival Date: 04/15/2024 Time: 09:46 Bed 17 Private MD: Diagnosis: Vomiting, unspecified;Hypo-osmolality and hyponatremia;Hypokalemia;Muscle weakness (generalized) Presentation: 04/15 09:53 Chief complaint: EMS states: Abdominal pain, N/V since Friday04/11/24. Coronavirus rs5 screen: At this time, the client does not indicate any symptoms associated with coronavirus-19. Ebola Screen: No symptoms or risks identified at this time. Initial Sepsis Screen: Does the patient meet any 2 criteria? No. Patient's initial sepsis screen is negative. Does the patient have a suspected source of infection? No. Patient's initial sepsis screen is negative. Risk Assessment: Do you want to hurt yourself or someone else? Patient reports no desire to harm self or others. Onset of symptoms was April 15, 2024. 09:53 Method Of Arrival: EMS: [facility] rs5 09:53 Acuity: GILBERTO 3 rs5 Historical: - Allergies: 09:54 Sulfa (Sulfonamide Antibiotics); rs5 09:54 Toradol; rs5 09:54 tramadol; rs5 - PMHx: 09:54 diabetes mellitus; Hypercholesterolemia; Hypertensive disorder; neuropathy; rs5 - PSHx: 09:54 section; Bowel Retracement; Appendectomy; Cholecystectomy; rs5 - Immunization history:: Adult Immunizations up to date. - Infectious Disease History:: Denies. - Family history:: not pertinent. - Social history:: Smoking status: Patient/guardian denies using tobacco, but has a distant history of tobacco abuse. - Hospitalizations: : No recent hospitalization is reported. Screenin:50 [facility] ED Fall Risk Assessment (Adult) History of falling in the last 3 months, rs5 including since admission No falls in past 3 months (0 pts) Confusion or Disorientation No (0 pts) Intoxicated or Sedated No (0 pts) Impaired Gait No (0 pts) Mobility Assist Device Used No (0 pt) Altered Elimination No (0 pt) Score/Fall Risk Level 0 - 2 = Low Risk Oriented to surroundings, Maintained a safe environment. Abuse screen: Denies threats or abuse. Nutritional screening: No deficits noted. Tuberculosis screening: No symptoms or risk factors identified. Assessment: 09:50 General: Appears uncomfortable, Behavior is cooperative. Pain: Complains of pain in rs5 abdomen. Pain: Pain currently is 8 out of 10 on a pain scale. Quality of pain is described as aching, Is continuous. Neuro: Level of Consciousness is awake, alert, obeys commands, Oriented to person, place, time, situation. Cardiovascular: Patient's skin is warm and dry. Respiratory: Airway is patent Respiratory effort is even, unlabored, Respiratory pattern is regular, symmetrical. GI: Abdomen is round non-distended, Bowel sounds present X 4 quads. Abd is soft and non tender X 4 quads. : No signs and/or symptoms were reported regarding the genitourinary system. EENT: No signs and/or symptoms were reported regarding the EENT system. Derm: Skin is intact, Skin is pink, warm \T\ dry. Musculoskeletal: Range of motion: intact in all extremities. 11:01 Reassessment: Patient and/or family updated on plan of care and expected duration. Pain rs5 level reassessed. Patient is alert, oriented x 3, equal unlabored respirations, skin warm/dry/pink. 12:10 Reassessment: Patient and/or family updated on plan of care and expected duration. Pain rs5 level reassessed. Patient is alert, oriented x 3, equal unlabored respirations, skin warm/dry/pink. 13:07 Reassessment: Patient and/or family updated on plan of care and expected duration. Pain rs5 level reassessed. Patient is alert, oriented x 3, equal unlabored respirations, skin warm/dry/pink. Vital Signs: 09:53 BP 146 / 84; Pulse 98; Resp 17; Temp 98(O); Pulse Ox 95% on R/A; rs5 12:01 BP 130 / 74; Pulse 80; Resp 17; Pulse Ox 99% on R/A; rs5 13:00 BP 134 / 79; Pulse 84; Resp 17; Pulse Ox 96% on R/A; rs5 ED Course: 09:49 Patient arrived in ED. rs5 09:50 Fredrick Draper MD is Attending Physician. rn 09:50 Patient has correct armband on for positive identification. Placed in gown. Bed in low rs5 position. Call light in reach. Side rails up X2. 09:50 No provider procedures requiring assistance completed. rs5 09:54 Triage completed. rs5 09:55 Candelario Villafana, RN is Primary Nurse. rs5 10:05 Inserted saline lock: 22 gauge in left antecubital area, using aseptic technique. Blood rs5 collected. Flushed with 10 mL NS. 10:50 CT Abd/Pelvis - IV Contrast Only In Process Unspecified. EDMS 11:04 Arnie Escobar MD is Hospitalizing Provider. rn 13:09 Patient admitted, IV remains in place. rs5 Administered Medications: 10:10 Drug: Famotidine IVP 20 mg IVP once; dilute with 10 mL 0.9% NaCl; give over 2 minutes rs5 Route: IVP; Site: left antecubital; 10:30 Follow up: Response: No adverse reaction rs5 10:10 Drug: Ondansetron IVP 4 mg IVP once; over 2 minutes Route: IVP; Site: left antecubital; rs5 10:30 Follow up: Response: No adverse reaction rs5 10:10 Drug: morphine IVP or IV 4 mg IVP once over 4 mins Route: IVP; Infused Over: 4 mins; rs5 Site: left antecubital; 10:40 Follow up: Response: No adverse reaction; Pain is decreased rs5 10:10 Drug: NS 0.9% IV 1000 ml IV at 1 bolus Per protocol; to be given as a bolus over 60 rs5 minutes Route: IV; Rate: 1 bolus; Site: left antecubital; 11:20 Follow up: Response: No adverse reaction; IV Status: Completed infusion; IV Intake: rs5 1000ml 11:10 Drug: Rocephin IV 1 grams IV at calculated rate once; Given slow IV push per pharmacy rs5 instructions Route: IV; Rate: calculated rate; Site: left antecubital; 11:22 Follow up: Response: No adverse reaction; IV Status: Completed infusion; IV Intake: [id number] 11:30 Follow up: Response: No adverse reaction rs5 11:10 Drug: Potassium Chloride IV 10 mEq IV at calculated rate once; administer over 1-2 rs5 hours Route: IV; Rate: calculated rate; Site: left antecubital; 13:00 Follow up: Response: No adverse reaction; IV Status: Completed infusion rs5 11:10 Drug: NS 0.9% IV 1000 ml IV at 1000 ml once; to be given as a bolus over 60 minutes rs5 Route: IV; Rate: 1000 ml; Site: left antecubital; 12:20 Follow up: Response: No adverse reaction; IV Status: Completed infusion; IV Intake: rs5 1000ml Medication: 13:08 VIS not applicable for this client. rs5 Intake: 11:20 IV: 1000ml; Total: 1000ml. rs5 11:22 IV: 50ml; Total: 1050ml. rs5 12:20 IV: 1000ml; Total: 2050ml. rs5 Outcome: 11:05 Decision to Hospitalize by Provider. rn 13:09 Admitted to Med/surg accompanied by tech, with chart, rs5 13:09 Condition: stable 13:09 Instructed on the need for admit, Demonstrated understanding of instructions, 13:11 Patient left the ED. rs5 Signatures: Dispatcher [employer] EDFredrick Alarcon MD MD rn Sotelo, Ricky, RN RN rs5
--- NOTE | 2024-04-15 11:05 | EDPHYS ---
Physician Documentation [facility] Name: Delmi Pool Age: 69 yrs Sex: Female : 1955 Arrival Date: 04/15/2024 Time: 09:46 Bed 17 Private MD: ED Physician Fredrick Draper HPI: 04/15 09:51 This 69 yrs old Female presents to ER via Unassigned with complaints of abd pain. rn 09:51 The patient presents with abdominal pain that is diffuse. Onset: The symptoms/episode rn began/occurred 3 day(s) ago. The symptoms do not radiate. Associated signs and symptoms: Pertinent positives: nausea and vomiting, constipation, fever, Pertinent negatives: blood in stools. Modifying factors: The symptoms are alleviated by nothing, the symptoms are aggravated by touching the area. Severity of pain: At its worst the pain was moderate in the emergency department the pain is unchanged. The patient has experienced a previous episode. Patient reports diffuse abdominal pain associated with vomiting and constipation for 3 days now. Has had bowel obstruction in the past. Also reports dysuria. Subjective fever and chills.. Historical: - Allergies: 09:54 Sulfa (Sulfonamide Antibiotics); rs5 09:54 Toradol; rs5 09:54 tramadol; rs5 - PMHx: 09:54 diabetes mellitus; Hypercholesterolemia; Hypertensive disorder; neuropathy; rs5 - PSHx: 09:54 section; Bowel Retracement; Appendectomy; Cholecystectomy; rs5 - Immunization history:: Adult Immunizations up to date. - Infectious Disease History:: Denies. - Family history:: not pertinent. - Social history:: Smoking status: Patient/guardian denies using tobacco, but has a distant history of tobacco abuse. - Hospitalizations: : No recent hospitalization is reported. ROS: 09:51 Constitutional: Positive for fever and chills Eyes: Negative for injury, pain, redness, rn and discharge, Cardiovascular: Negative for chest pain, palpitations, and edema, Respiratory: Negative for shortness of breath, cough, wheezing, and pleuritic chest pain, Abdomen/GI: Positive for abdominal pain with nausea/vomiting/constipation Back: Negative for injury and pain, : Positive for dysuria MS/Extremity: Negative for injury and deformity, Skin: Negative for injury, rash, and discoloration, Neuro: Negative for headache, numbness, tingling, and seizure, Exam: 09:51 Constitutional: This is a well developed, well nourished patient who is awake, alert, rn holding emesis bag that is empty ENT: Dry mucous membranes Cardiovascular: Regular rate and rhythm. No pulse deficits. Respiratory: No increased work of breathing, no retractions or nasal flaring. Abdomen/GI: Soft, mid abdominal tenderness without peritoneal signs or distention MS/ Extremity: Pulses equal, no cyanosis. Neuro: Awake and alert, GCS 15 Vital Signs: 09:53 BP 146 / 84; Pulse 98; Resp 17; Temp 98(O); Pulse Ox 95% on R/A; rs5 12:01 BP 130 / 74; Pulse 80; Resp 17; Pulse Ox 99% on R/A; rs5 13:00 BP 134 / 79; Pulse 84; Resp 17; Pulse Ox 96% on R/A; rs5 MDM: 09:50 Medical Screening Exam initiated rn 11:02 Differential diagnosis: bowel obstruction, non-specific abd pain, urinary tract rn infection, electrolyte disorder. Data reviewed: vital signs, nurses notes, lab test result(s), radiologic studies, CT scan, and as a result, I will discharge patient. Counseling: I had a detailed discussion with the patient and/or guardian regarding the historical points, exam findings, and any diagnostic results supporting the discharge/admit diagnosis, lab results, radiology results, the need for further work-up and treatment in the hospital. Response to treatment: There is no appreciated change of the patient's symptoms at this time, and as a result, I will admit patient. 04/15 09:50 Order name: CBC with Diff; Complete Time: 10: rn 04/15 09:50 Order name: CMP; Complete Time: 10:56 rn 04/15 09:50 Order name: Lipase; Complete Time: 10:56 rn 04/15 09:50 Order name: Urinalysis w/ reflexes; Complete Time: 10:56 rn 04/15 09:50 Order name: Flu; Complete Time: 10:56 rn 04/15 12:05 Order name: Basic Metabolic Panel ED[facility] 04/15 12:10 Order name: Urinalysis w/ reflexes EDMS 04/15 12:10 Order name: Basic Metabolic Panel [facility]VA 04/15 12:10 Order name: Basic Metabolic Panel EDMS 04/15 12:10 Order name: Basic Metabolic Panel EDMS 04/15 12:10 Order name: Basic Metabolic Panel EDMS 04/15 12:10 Order name: CBC with Automated Diff EDMS 04/15 12:10 Order name: CBC with Automated Diff EDMS 04/15 12:10 Order name: CBC with Automated Diff EDMS 04/15 12:10 Order name: CBC with Automated Diff EDMS 04/15 12:10 Order name: Magnesium EDMS 04/15 12:10 Order name: Magnesium EDMS 04/15 12:10 Order name: Magnesium EDMS 04/15 12:10 Order name: Magnesium EDMS 04/15 12:17 Order name: Renal Panel EDMS 04/15 12:17 Order name: Renal Panel EDMS 04/15 12:17 Order name: Renal Panel EDMS 04/15 12:17 Order name: Renal Panel EDMS 04/15 09:50 Order name: CT Abd/Pelvis - IV Contrast Only; Complete Time: 10:58 rn 04/15 09:50 Order name: IV Saline Lock; Complete Time: 10:21 rn 04/15 09:50 Order name: Labs collected and sent; Complete Time: 10:21 rn Administered Medications: 10:10 Drug: Famotidine IVP 20 mg IVP once; dilute with 10 mL 0.9% NaCl; give over 2 minutes rs5 Route: IVP; Site: left antecubital; 10:30 Follow up: Response: No adverse reaction rs5 10:10 Drug: Ondansetron IVP 4 mg IVP once; over 2 minutes Route: IVP; Site: left antecubital; rs5 10:30 Follow up: Response: No adverse reaction rs5 10:10 Drug: morphine IVP or IV 4 mg IVP once over 4 mins Route: IVP; Infused Over: 4 mins; rs5 Site: left antecubital; 10:40 Follow up: Response: No adverse reaction; Pain is decreased rs5 10:10 Drug: NS 0.9% IV 1000 ml IV at 1 bolus Per protocol; to be given as a bolus over 60 rs5 minutes Route: IV; Rate: 1 bolus; Site: left antecubital; 11:20 Follow up: Response: No adverse reaction; IV Status: Completed infusion; IV Intake: rs5 1000ml 11:10 Drug: Rocephin IV 1 grams IV at calculated rate once; Given slow IV push per pharmacy rs5 instructions Route: IV; Rate: calculated rate; Site: left antecubital; 11:22 Follow up: Response: No adverse reaction; IV Status: Completed infusion; IV Intake: [id number] 11:30 Follow up: Response: No adverse reaction rs5 11:10 Drug: Potassium Chloride IV 10 mEq IV at calculated rate once; administer over 1-2 rs5 hours Route: IV; Rate: calculated rate; Site: left antecubital; 13:00 Follow up: Response: No adverse reaction; IV Status: Completed infusion rs5 11:10 Drug: NS 0.9% IV 1000 ml IV at 1000 ml once; to be given as a bolus over 60 minutes rs5 Route: IV; Rate: 1000 ml; Site: left antecubital; 12:20 Follow up: Response: No adverse reaction; IV Status: Completed infusion; IV Intake: rs5 1000ml Disposition Summary: 04/15/24 11:05 Hospitalization Ordered Notes: Hospitalization Status: Observation rn Provider: Arnie Escobar rn Location: Telemetry/MedSurg (observation) rn Condition: Stable rn Problem: new rn Symptoms: have improved rn Bed/Room Type: Standard rn Room Assignment: 232(04/15/24 12:27) bc6 Diagnosis - Vomiting, unspecified rn - Hypo-osmolality and hyponatremia rn - Hypokalemia rn - Muscle weakness (generalized) rn Forms: - Medication Reconciliation Form rn - SBAR form rn - Leadership Thank You Letter rn Signatures: Dispatcher [employer] EDFredrick Alarcon MD MD rn Sotelo, Ricky, RN RN rs5 Helen Lees bc6 Corrections: (The following items were deleted from the chart) 09:50 09:50 Abdomen Pelvis W Con+CT.RAD.BRZ ordered. EDVA EDMS 12:27 11:05 rn bc6
[2024-04-15] MEDS ORDERED: CEFTRIAXONE 1000 MG/VIAL ONE (11:06)
[2024-04-15] MEDS ORDERED: KCL 20 MEQ/100 mL IVPB 100 ML IV ONE (11:07)
[2024-04-15] MEDS ORDERED: ACETAMINOPHEN 500 MG TAB PO PRN (12:04)
[2024-04-15] MEDS ORDERED: ALPRAZOLAM 0.25 MG TABLET PO PRN (12:04)
[2024-04-15] MEDS ORDERED: ALBUTEROL 2.5 MG/3 ML NEB SOL NEB PRN (12:04)
[2024-04-15] MEDS ORDERED: IPRATROPIUM BROM 0.5MG/2.5ML NEB PRN (12:04)
--- NOTE | 2024-04-15 12:19 | P.HP ---
Certification for Inpatient Patient admitted to: Observation Patient will require the following post-hospital care: None Practitioner: I am a practitioner with admitting privileges, knowledge of patient current condition, hospital course, and medical plan of care. Services: Services provided to patient in accordance with Admission requirements found in Title 42 Section 412.3 of the Code of Federal Regulations Patient History Date of Service: 04/15/24 Reason for admission: Hyponatremia, [place], History of Present Illness: 69-year-old female with a past medical history of tobacco use, hypertension, reflux esophagitis, small bowel obstruction, gastroparesis with frequent episodes of nausea and vomiting. She presented to the emergency department with nausea vomiting. She reports associated suprapubic abdominal pain. She reports a low-grade fever overnight. She denies hematemesis or hematochezia/melena. No reported diarrhea, she denies chest pain, shortness of breath, edema, ER evaluation sodium 123, UA positive for UTI 250 leukoesterase, WBCs 10-20, 1+ protein, CT of the abdomen pelvis IMPRESSION: No acute or significant abnormalities seen in the abdomen or pelvis. No significant change compared with 03/22/2024, plan to admit for observation nausea vomiting, hyponatremia, acute cystitis, for electrolyte replacement. Allergies ketorolac [From Toradol] Allergy (Verified 09/27/22 18:46) Itching/Hives/Rash Sulfa (Sulfonamide Antibiotics) Allergy (Verified 08/20/14 13:11) Itching/Hives/Rash tramadol Allergy (Verified 09/27/22 18:46) Shortness of breath Home Medications: Gabapentin 800 mg PO TID 06/10/23 Losartan Potassium 50 mg PO DAILY 06/10/23 Ondansetron [Zofran] 4 mg PO Q6H PRN #20 tab 03/23/24 - Past Medical/Surgical History Diabetic: No -: NIDDM2 -: SBO -: GERD -: Chronic pain -: hysterectomy -: -: bowel resection Psychosocial/ Personal History: Lives in her home with her Son and his - Family History Father -: Other (see notes) Notes: thought to have from cancer Mother -: Other (see notes) Notes: spinal stenosis Brother -: Heart disease, Diabetes Notes: stents. stenosis Sister -: Blood disorders Notes: form of leukemia - Social History Alcohol use: No CD- Drugs: No Caffeine use: Yes Review of Systems 10-point ROS is otherwise unremarkable General: As per HPI Physical Examination - Physical Exam General: Alert, In no apparent distress, Oriented x3, Mild distress HEENT: Atraumatic, Normocephalic Neck: Supple, 2+ carotid pulse no bruit Respiratory: Clear to auscultation bilaterally, Normal air movement Cardiovascular: No edema, Normal pulses Capillary refill: <2 Seconds Gastrointestinal: Normal bowel sounds, Other (Suprapubic abdominal tenderness) Musculoskeletal: No clubbing, No swelling Integumentary: No breakdown, No significant lesion Neurological: Normal speech, Normal strength at 5/5 x4 extr - Studies Laboratory Data (last 24 hrs) 04/15/24 04/15/24 10:15 10:15 WBC 8.20 Hgb 16.6 H Hct 48.5 H Plt Count 231 Sodium 123 L Potassium 3.1 L BUN 5 L Creatinine 0.49 L Glucose 136 H Total Bilirubin 1.1 H AST 15 ALT 17 Alkaline Phosphatase 98 Lipase 17 Microbiology Data (last 24 hrs): 04/15/24 10:15 Nasopharnyx Influenza Type A Antigen Screen - Final 04/15/24 10:15 Nasopharnyx Influenza Type B Antigen Screen - Final Assessment and Plan - Problems (Diagnosis) (1) Hyponatremia Current Visit: Yes Status: Acute (2) Acute cystitis Current Visit: Yes Status: Acute (3) GERD without esophagitis Current Visit: No Status: Acute (4) Nausea & vomiting Current Visit: No Status: Acute - Plan Admit to MedSur IV fluids, IV antibiotics, as needed antiemetics, Educated on tobacco cessation, Trend sodium, trend WBCs, Trend cultures, Advance diet as tolerated Full code DVT SCDs Diet advance as tolerated Disposition Home independent prior Discharge Plan: Home - Advance Directives Does patient have a Living Will: No Does patient have a Durable POA for Healthcare: No - Code Status/Comfort Care Code Status: Full Code Critical Care: No Time Spent Managing Pts Care (In Minutes): 55
[2024-04-15] MEDS: MORPHINE 4 MG/ML SYR IV PRN (12:30)
[2024-04-15] MEDS: ONDANSETRON 4 MG/2 ML VIAL IV PRN (12:30)
[2024-04-15 12:44] LABS: Anion Gap 10.5 mEq/L (5.0-15.0); Potassium 3.5 mEq/L (3.5-5.1)
[2024-04-15 13:36] VITALS: O2SAT 96
[2024-04-15 13:44] VITALS: BMI 23.4
[2024-04-15] MEDS: FLU (Fluarix Triv) TS24-25(6MOS UP)/PF 45 MCG/0.5 ML Syringe IM ONE (14:00)
[2024-04-15] MEDS: NA CHLORIDE 0.9% 1,000 ML IV SCH ×2 (15:18→16:46)
[2024-04-15 15:21] LABS: Specific Gravity 1.019 (1.005-1.030); Sqamous Epithelial <5 /HPF (None Seen); Urine Bacteria None Seen /HPF (<20); Urine Bilirubin NEGATIVE (Negative); Urine Blood Negative (Negative); Urine Clarity Clear (Clear); Urine Color Colorless (Yellow); Urine Culture Reflex Order REFLEXED; Urine Glucose NEGATIVE (Negative); Urine Ketones NEGATIVE (Negative); Urine Microscopic Reflex YN ORDER UMIC; Urine Nitrite NEGATIVE (Negative); Urine Protein 1+ (Negative); Urine RBC <5 /HPF (None Seen); Urine Urobilinogen Normal (Normal); Urine pH 6.5 (5.0-7.0)
[2024-04-15 16:34] LABS: Anion Gap 11.4 mEq/L (5.0-15.0); Potassium 3.4 mEq/L (3.5-5.1)
[2024-04-15] MEDS: CEFTRIAXONE 1,000 MG in NA CHLORIDE 0.9% 50 ML IVPB SCH (20:11)
[2024-04-15 20:43] LABS: Anion Gap 11.1 mEq/L (5.0-15.0); Potassium 3.1 mEq/L (3.5-5.1)
[2024-04-15] MEDS: FAMOTIDINE 20 MG/2 ML VIAL IV SCH (20:50)
[2024-04-15] MEDS: KCL 20 MEQ/100 mL IVPB 20 MEQ/100 ML BAG IV ONE (22:12)
[2024-04-16 01:06] LABS: Anion Gap 10.5 mEq/L (5.0-15.0); Potassium 3.5 mEq/L (3.5-5.1)
[2024-04-16 04:51] LABS: Absolute Basophils 0.1 K/uL (0-0.5); Absolute Lymphocytes (CBC) 2.1 K/uL (0.7-4.9); Absolute Monocytes 0.8 K/uL (0.1-1.3); Absolute Neutrophil 3.1 K/uL (1.8-8.0); Basophils % 0.9 % (0-1.3); Eosinophils % 0.6 % (0-4.4); Hematocrit 41.7 % (36.0-45.0); Hemoglobin 14.1 g/dL (12.0-15.0); Lymphocytes % 34.6 % (15.3-44.8); MCH 32.5 pg (27.0-35.0); MCHC 33.7 g/dL (32.0-36.0); MCV 96.5 fL (80-100); MPV 7.5 fL (7.6-11.3); Monocytes % 13.2 % (3.3-12.3); Neutrophils % 50.7 % (41.7-73.7); Nucleated Red Blood Cells % 0.1 % (0-0); Platelets 192 thou/uL (152-406); RBC Red Blood Cell Count 4.33 M/uL (3.86-4.86); Red Cell Distribution Width 13.9 % (12.1-15.2)
[2024-04-16 05:01] LABS: Albumin 3.1 g/dL (3.4-5.0); Phosphorus 2.3 mg/dL (2.5-4.9)
[2024-04-16] MEDS: KCL 20 MEQ/100 mL IVPB 20 MEQ/100 ML BAG IV SCH (06:04)
[2024-04-16] MEDS: PNEUMOCOCCAL VACCINE 0.5 ML IMVAC ONE (08:00)
[2024-04-16] MEDS: POTASS/SODIUM PHOSPHATE 1 PKT POWD.PACK PO SCH (09:33)
[2024-04-16] MEDS: D5W 500 ML IV SCH (12:29)
[2024-04-16 16:54] VITALS: BP 122/65; TEMP 98.4
--- NOTE | 2024-04-16 19:04 | P.DS ---
Admission Date: 04/15/24 Discharge Date: 04/16/24 Disposition: ROUTINE DISCHARGE Discharge Condition: GOOD Reason for Admission: Hyponatremia, [place], - Problems (1) Hyponatremia Status: Acute (2) Acute cystitis Status: Acute (3) GERD without esophagitis Status: Acute (4) Nausea & vomiting Status: Acute Brief History of Present Illness: 69-year-old female with a past medical history of tobacco use, hypertension, reflux esophagitis, small bowel obstruction, gastroparesis with frequent episodes of nausea and vomiting. She presented to the emergency department with nausea vomiting. She reports associated suprapubic abdominal pain. She reports a low-grade fever overnight. She denies hematemesis or hematochezia/melena. No reported diarrhea, she denies chest pain, shortness of breath, edema, ER evaluation sodium 123, UA positive for UTI 250 leukoesterase, WBCs 10-20, 1+ protein, CT of the abdomen pelvis IMPRESSION: No acute or significant abnormalities seen in the abdomen or pelvis. No significant change compared with 03/22/2024, plan to admit for observation nausea vomiting, hyponatremia, acute cystitis, for electrolyte replacement. - Physical Exam General: Alert, In no apparent distress, Oriented x3, Mild distress HEENT: Atraumatic, Normocephalic Neck: Supple, 2+ carotid pulse no bruit Respiratory: Clear to auscultation bilaterally, Normal air movement Cardiovascular: No edema, Normal pulses Capillary refill: <2 Seconds Gastrointestinal: Normal bowel sounds, Other (Suprapubic abdominal tenderness) Musculoskeletal: No clubbing, No swelling Integumentary: No breakdown, No significant lesion Neurological: Normal speech, Normal strength at 5/5 x4 extr Hospital Course: 69-year-old female with a past medical history of tobacco use, hypertension, reflux esophagitis, small bowel obstruction, gastroparesis with frequent episodes of nausea and vomiting. She presented to the emergency department with nausea vomiting. She reports associated suprapubic abdominal pain. She reports a low-grade fever overnight. She denies hematemesis or hematochezia/melena. No reported diarrhea, she denies chest pain, shortness of breath, edema, ER van luation sodium 123, UA positive for UTI 250 leukoesterase, WBCs 10-20, 1+ protein, CT of the abdomen pelvis IMPRESSION: No acute or significant abnormalities seen in the abdomen or pelvis. No significant change compared with 03/22/2024, plan to admit for observation nausea vomiting, hyponatremia, acute cystitis, for electrolyte replacement. Electrolytes improved, treated with IV antibiotics, stable to discharge home on p.o. antibiotics, as needed antiemetics follow-up with PCP after discharge. Discharged home on p.o. cefdinir, prednisone, sodium tabs Assessment Hyponatremia electrolytes replaced while inpatient Acute cystitis treated with IV antibiotics discharged home on p.o. antibiotic Nausea vomiting bowel rest, advance diet as tolerated, treated with IV fluids, as needed antiemetics, Urine cultures showed no growth, Influenza AB neg GOAL: Clear understanding of disease process INSTRUCTIONS: Physician Discharge Instructions: -Follow-up with PCP in 1 to 2 weeks -Please call Dr. Escobar at [phone] if any questions regarding hospital stay -Please call nursing station at [phone] if any nursing or medication questions -Return to the emergency room if symptoms worsen Diet: ADA, low sodium Activity: Fall precautions Vital Signs/Physical Exam: Temp Pulse Resp BP Pulse Ox 98.4 F 70 16 122/65 96 04/16/24 16:00 04/16/24 16:00 04/16/24 16:00 04/16/24 16:00 04/16/24 16:00 Laboratory Data at Discharge: WBC 6.20 thou/uL (4.3-10.9) 04/16/24 04:24 Hgb 14.1 g/dL (12.0-15.0) D 04/16/24 04:24 Hct 41.7 % (36.0-45.0) 04/16/24 04:24 Plt Count 192 thou/uL (152-406) 04/16/24 04:24 Sodium 132 mEq/L (136-145) L 04/16/24 04:24 Potassium Cancelled 04/16/24 Unknown BUN 4 mg/dL (7-18) L 04/16/24 04:24 Creatinine 0.42 mg/dL (0.55-1.02) L 04/16/24 04:24 Glucose 134 mg/dL (74-106) H 04/16/24 04:24 Phosphorus 2.3 mg/dL (2.5-4.9) L 04/16/24 04:24 Magnesium 2.0 mg/dL (1.6-2.4) 04/16/24 04:24 Total Bilirubin 1.1 mg/dL (0.2-1.0) H 04/15/24 10:15 AST 15 U/L (15-37) 04/15/24 10:15 ALT 17 U/L (13-56) 04/15/24 10:15 Alkaline Phosphatase 98 U/L (45-117) 04/15/24 10:15 Lipase 17 U/L (13-75) 04/15/24 10:15 Home Medications: Gabapentin 800 mg PO TID 06/10/23 Losartan Potassium 50 mg PO DAILY 06/10/23 Ondansetron [Zofran (Odt)*] 4 mg PO Q6H PRN #20 tab 03/23/24 Cefdinir [Cefdinir*] 300 mg PO BID #14 cap 04/16/24 Sodium Chloride Tab [Sodium Chloride*] 1 gm PO BID #60 tab 04/16/24 predniSONE [Deltasone] 20 mg PO BID #11 tab 04/16/24 New Medications: Cefdinir [Cefdinir*] 300 mg PO BID #14 cap predniSONE [Deltasone] 20 mg PO BID #11 tab Sodium Chloride Tab [Sodium Chloride*] 1 gm PO BID #60 tab Physician Discharge Instructions: Follow up with a Skating [employer] Ice Maker of your choice: MARCO BULLOCK DO [address] [place] [address] BOSSMAN HUMMEL MD [address], [facility] [place] [address] ANGELA AQUINO MD [address], [facility] [place] [address] GLADYS MEJIA MD [address] [place] [address] JUNO VELEZ MD [address], [facility] [place] [address] ABDIAS CUELLO MD [address], [address] [place], [place] [id number] ARVIND HENRY MD [address], [address] [place], [place] [address] NATALIE BARBER MD [address] [place], [place] [id number] TITI NEIL MD [address] [place] [address] -DC IV and DC home -Follow-up with PCP in 1 to 2 weeks -Follow-up with Nephrology in 1 to 2 weeks -Please call Dr. Escobar at [phone] if any questions regarding hospital stay -Please call nursing station at [phone] if any nursing or medication questions -Return to the emergency room if symptoms worsen Diet: Regular Activity: Fall precautions Followup: Chris Griggs MD [Primary Care Provider] - Time spent managing pt's care (in minutes): 45
== END 2024-04-16 18:16 | disposition home or self-care (01) ==
LOC: ER 09:46 → ERHOLD 12:19 → 2ND 12:56
PROVIDERS: ADMIT Hospitalist; ATTEND Hospitalist
DX: E87.1 Hypo-osmolality and hyponatremia (principal); E87.6 Hypokalemia; R11.2 Nausea with vomiting, unspecified; N30.00 Acute cystitis without hematuria; R53.1 Weakness; K21.9 Gastro-esophageal reflux disease without esophagitis; I10 Essential (primary) hypertension; E11.43 Type 2 diabetes mellitus with diabetic autonomic (poly)neuropathy; K31.84 Gastroparesis; K56.609 Unspecified intestinal obstruction, unspecified as to partial versus complete obstruction; E78.00 Pure hypercholesterolemia, unspecified; Z88.2 Allergy status to sulfonamides; Z88.5 Allergy status to narcotic agent
CPT/HCPCS: 96365; 96361; 85025 ×2; 81001 ×2; 87086; 80048 ×4; 36415; 83735; 82947 ×3; 80069; 83690; 80053; 87804 ×2; 74177; 96375; 99285; 96366; Q9967; J3480 ×4; J2405 ×6; J7030 ×4; J0696 ×3; 87088; G0378

== ENCOUNTER 2024-04-18 17:00 | Inpatient (IN) | payer OTHER ==
--- OUTSIDE RECORDS SUMMARY | 2024-04-18 17:07 | XMS REPORT | Continuity of Care Document ---
Author Name Unknown Address [address] [facility] [address] [place] [address] [facility] thconnect Address [address] [facility] [address] [place] [address] Care Team Providers Care Utilization Management Um Nurse Name Role Phone Pcp, Patient Does Not Have A Primary Care Physic juan Doctor Unassigned, [place] Attending Clinician U Maegan Valdez MD Attending Clinician MAEGAN DENNY Attending Clinician Unavailabl e AMBREEN_FARHANA Attending Clinician Unavailable AMBREEN_SUYAPA Admitting Clinician Unavailable Payers Payer Name Policy Type Policy Number Effective Date Expirati on Date Source FORMERLY [facility] (MEDICARE REPLACEMENT HMO) [id number] 2022 00:00:00 Allergies, Adverse Reactions, Alerts Allergy Name Allergy Type Status Severity Reaction(s) Onset Date Inactive Date Treating Clinician Comments Source Sulfa (Sulfona mide Antibiot ics) Propensi ty to adverse reaction to drug Inactiv e 07-21 00:00: 00 Jaden Ponce NO KNOWN ALLERGIE S Drug Class Active [facility] Social History Social Habit Start Date Stop Date Quantity Comments Source Exposure to SARS-CoV-2 (event) 2022-09-27 00:00:00 2022-10-07 14:36:00 Not sure [facility] Sex Assigned At 1955 00:00:00 1955 00:00:00 [facility] Smoking Status Start Date Stop Date Source Tobacco smoking consumption unknown [facility] Medications Ordered Medication Name Filled [...] NOSTRIL TWICE DAILY. 08-03 00:00: 00 Yes [id number] Jaden Ponce INHALE 1 PUFF TWICE DAILY. 08-03 00:00: 00 Yes [id number] 5 Jaden Ponce TAKE 1 TABLET BY MOUTH DAILY 08-03 00:00: 00 Yes 10 Jaden Ponce TAKE 1 TABLET BY MOUTH 4 TIMES DAILY. 08-03 00:00: 00 Yes 800 Jaden Ponce TAKE 1 TABLET BY MOUTH DAILY 08-03 00:00: 00 Yes 50 Jaden Ponce INHALE 2 PUFFS BY MOUTH EVERY 4 TO 6 HOURS NEEDED. 08-03 00:00: 00 Yes [id number] Jaden Ponce 1 CAP EVERY 8 HOURS NEEDED FOR COUGH 08-03 00:00: 00 09-30 00:00 :00 No 200 Jaden Ponce TAKE 2 TABLETS ON DAY 1 THEN TAKE 1 TABLET A DAY FOR 4 DAYS. 08-03 00:00: 00 09-30 00:00 :00 No 250 Jaden Ponce TAKE 5 ML EVERY 6 HOURS NEEDED FOR COUGH 08-03 00:00: 00 09-30 00:00 :00 No [id number] Jaden Ponce TAKE 1 TAB 3 TIMES [...] 06-19 00:00: 00 09-30 00:00 :00 No 69501 Jaden Ponce losartan 50 mg tablet 06-18 00:00: 00 Yes mg Jadne Ponce amitriptyli ne 50 mg tablet 06-18 [...] 06-18 00:00: 00 09-30 00:00 :00 No [id number] Jaden Ponce AMITRIPTYLI NE HYDROCHLORI DE 50 [...] 2022-05 00:00: 00 09-30 00:00 :00 No [id number] Jaden Ponce PANTOPRAZOL E SOD DR 40 MG 2022-05 00:00: 00 Yes Jaden Ponce LOSARTAN POTASSIUM 50 MG 2022-05 00:00: 00 Yes Jaden Ponce 1 CAP EVERY 8 HOURS NEEDED FOR COUGH 2022-05 0 00:00: 00 09-30 00:00 :00 No 200 Jaden Ponce INHALE 1 PUFF TWICE DAILY. 2022-05 0 00:00: 00 09-30 00:00 :00 No [id number] 5 Jaden Ponce TAKE 5 ML EVERY 4 TO 6 HOURS NEEDED FOR COUGH. 2022-05 0- 00:00: 00 09-30 00:00 :00 No [id number] Jaden Ponce TAKE 2 TABS DAILY THE [...] TRELEGY ELLIPTA 200-62.5-25 01-15 00:00: 00 Yes [id number] Jaden Ponce TAKE 2 TABS DAILY THE FIRST 5 DAYS,THEN 1 TAB DAILY THE LAST 5 DAYS 01-15 00:00: 00 09-30 00:00 :00 No 20 Jaden Ponce USE 1 SPRAY IN EACH NOSTRIL TWICE DAILY. 01-15 00:00: 00 09-30 00:00 :00 No 54795 Jaden Ponce TAKE 1 TABLET TWICE DAILY WITH FOOD. 01-15 00:00: 00 09-30 00:00 :00 No [id number] Jaden Ponce INSTILL 2 DROPS INTO BOTH EYES ONCE DAILY. 01-15 00:00: 00 09-30 00:00 :00 No 2 Jaden Ponce TAKE 5 ML EVERY 4 TO 6 HOURS NEEDED FOR COUGH. 01-15 00:00: 00 09-30 00:00 :00 No [id number] Jaden Ponce TAKE 1 TABLET BY MOUTH [...] 12-19 00:00: 00 09-30 00:00 :00 No [id number] Jaden Ponce INHALE 2 PUFFS EVERY 4 TO 6 HOURS NEEDED. 12-19 00:00: 00 09-30 00:00 :00 No [id number] Jaden Ponce TAKE 1 TABLET BY MOUTH [...] 10-30 00:00: 00 09-30 00:00 :00 No [id number] Jaden Ponce TAKE 1 TABLET BY MOUTH [...] 10-07 21:45: 00 10-07 20:33 :00 No [id number] 40mg [facility] TRAMADOL HCL 50 MG 10-07 00:00: 00 Yes Jaden Ponce traMADoL 50 mg tablet 10-07 00:00: 00 10-15 04:59 :00 No [id number] 50mg Take 1 tablet by mouth every 6 (six) hours as needed for Pain (scale 4-6) for up to 7 days. Indication s: acute pain [facility] TAKE 1 TABLET BY MOUTH EVERY DAY 10-01 00:00: 00 Yes Jaden Ponce HYDROCODONE -ACETAMIN 5-325 MG 10-01 00:00: 00 Yes Jaden Ponce amLODIPine 5 mg tablet 10-01 00:00: 00 Yes 5mg Take 1 tablet by mouth in the morning. [facility] NEOMYCIN-PO LYMYXIN-HC EAR SOLN 08-21 00:00: 00 [...] 08-21 00:00: 00 09-30 00:00 :00 No [id number] Jaden Ponce INSTILL 3 DROPS IN BOTH EARS 3-4 TIMES DAILY. 08-21 00:00: 00 09-30 00:00 :00 No Jaden Ponce INHALE 2 PUFFS TWICE DAILY. 08-21 00:00: 00 09-30 00:00 :00 No [id number] Jaden Ponce TAKE 1 TABLET BY MOUTH AT BEDTIME 08-21 00:00: 00 09-30 00:00 :00 No 10 Jadenluna Ponce INHALE 2 PUFFS EVERY 4 TO 6 HOURS NEEDED. 08-21 00:00: 09-30 00:00 :00 No 67768 Jaden Ponce pantoprazol e 40 mg EC tablet 08-20 00:00: 00 Yes Landy corrigan [facility] PREDNISONE 20 MG 08-15 00:00: 00 Yes 20 Jaden Serafin Ponce ALBUTEROL HFA 90 MCG INHALER 08-15 00:00: 00 Yes 90 Jaden Ponce INHALE 2 PUFFS EVERY 4 TO 6 HOURS NEEDED. 08-15 00:00: 00 09-30 00:00 :00 No 84325 Jaden Ponce TAKE 5 ML EVERY 4 TO 6 HOURS NEEDED FOR COUGH. 08-15 00:00: 00 09-30 00:00 :00 No [id number] Jaden Serafin Ponce 1 CAP EVERY 8 HOURS NEEDED FOR COUGH 08-15 00:00: 00 09-30 00:00 :00 No 200 Jaden Serafin Ponce INHALE 2 PUFFS TWICE DAILY. 08-15 00:00: 00 09-30 00:00 :00 No [id number] Jaden Serafin Ponce TAKE 1 TABLET BY [...] - 00:00: 00 09-30 00:00 :00 No [id number] Jaden Ponce TAKE 1 TABLET BY MOUTH [...] 2021-05 00:00: 00 09-30 00:00 :00 No [id number] Jaden Ponce TAKE 1 TABLET BY MOUTH EVERY DAY FOR BACK PAIN 2021-05 00:00: 00 Yes Jaden Ponce METHYLPREDN ISOLONE 4 MG DOSEPK 2021-05 2- 00:00: 00 Yes Jaden Ponce PREDNISONE 20 MG 2021-05- 00:00: 00 Yes Jaden Ponce AZITHROMYCI N 250 MG 2021-05 00:00: 00 Yes Jaden Ponce INHALE 2 PUFFS TWICE DAILY. 2021-05- 00:00: 00 09-30 00:00 :00 No 20538 Jaden Ponce Dose Unknown 2021-05 2- 00:00: 00 Yes 20 Jaden Ponce PREGABALIN 300 MG CAPSULE</Te xt> <Code> <Value>0022 [id number]</Va lue> <CodingSyst em>NDC</Cod ingSystem> </Code> 2021-05 2- 00:00: 00 Yes 300 Jaden Ponce Dose Unknown 2021-05 2- 00:00: 00 Yes Jaden Ponce Dose Unknown 2021-05 2- 00:00: 00 Yes Jaden Ponce Dose Unknown 2021-05 2- 00:00: 00 Yes Jaden Ponce Dose Unknown 2021-05 2- 00:00: 00 Yes Jaden Ponce PROAIR HFA 90 MCG INHALER</Te xt> <Code> <Value>2169 [id number]</Va lue> <CodingSyst em>NDC</Cod ingSystem> </Code> 2021-05 2- 00:00: 00 Yes Jaden Ponce Dose Unknown 2021-05 2- 00:00: 00 Yes Jaden Ponce AMOX-CLAV 875-125 MG TABLET</Nicolás t> <Code> <Value>0009 [id number]</Va lue> <CodingSyst em>NDC</Cod ingSystem> </Code&gt 2021-05 2- 00:00: 00 Yes Jaden Ponce HYDROCHLORO THIAZIDE 25 MG TAB</Text> <Code> <Value>0017 [id number]</Va lue> <CodingSyst em>NDC</Cod ingSystem> </Code& 2021-05 2- 00:00: 00 Yes 25 Jaden Ponce Dose Unknown 2021-05 2- 00:00: 00 Yes Jaden Ponce PREGABALIN 150 MG CAPSULE</Te xt> <Code> <Value>0022 [id number]</Va lue> <CodingSyst em>NDC</Cod ingSystem> </Code> 2021-05 2- [...] PREGABALIN 300 MG CAPSULE</Te xt> <Code> <Value>0022 [id number]</Va lue> <CodingSyst em>NDC</Cod ingSystem> </Code> 2021-05 00:00: 00 No 300 Dose Unknown 2021-05 00:00: 00 No Dose Unknown 2021-05 00:00: 00 No Dose Unknown 2021-05 00:00: 00 No Dose Unknown 2021-05 00:00: 00 No INHALE 1 PUFF TWICE DAILY. 2021-05 00:00: 00 No [id number] 5 INHALE 2 PUFFS EVERY 4 TO 6 HOURS NEEDED. 2021-05 00:00: 00 No 38715 PROAIR HFA 90 MCG INHALER</Te xt> <Code> <Value>2169 [id number]</Va lue> <CodingSyst em>NDC</Cod ingSystem> </Code> 2021-05 00:00: 00 No Dose Unknown 2021-05 00:00: 00 No AMOX-CLAV 875-125 MG TABLET</Nicolás t> <Code> <Value>0009 [id number]</Va lue> <CodingSyst em>NDC</Cod ingSystem> </Code&gt 2021-05 00:00: 00 No HYDROCHLORO THIAZIDE 25 MG TAB</Text> <Code> <Value>0017 [id number]</Va lue> <CodingSyst em>NDC</Cod ingSystem> </Code& 2021-05 00:00: 00 No 25 TAKE 1 TABLET AT BEDTIME. 2021-05 00:00: 00 No 20 Dose Unknown 2021-05 00:00: 00 No PREGABALIN 150 MG CAPSULE</Te xt> <Code> <Value>0022 [id number]</Va lue> <CodingSyst em>NDC</Cod ingSystem> </Code> 2021-05 00:00: 00 No 150 TAKE 5 ML DAILY AT BEDTIME. 2021-05 2 00:00: 00 No [id number] TAKE 1 TABLET DAILY. 2021-05 00:00: 00 [...] 2021-05 00:00: 00 09-30 00:00 :00 No [id number] 5 Jaden Ponce INHALE 2 PUFFS EVERY 4 TO 6 HOURS NEEDED. 2021-05 00:00: 00 09-30 00:00 :00 No 00350 Jaden Ponce TAKE 1 TABLET AT BEDTIME. 2021-05 00:00: 00 09-30 00:00 :00 No 20 Jaden Ponce TAKE 5 ML DAILY AT BEDTIME. 2021-05 00:00: 00 09-30 00:00 :00 No [id number] Jaden Ponce TAKE 1 TABLET DAILY. 2021-05 00:00: 00 09-30 00:00 :00 No 160 Jaden Ponce TAKE 1 TABLET 4 TIMES DAILY. 2021-05 00:00: 00 09-30 00:00 :00 No 800 Jaden Ponce INHALE 2 PUFFS TWICE DAILY. 2021-05 00:00: 00 09-30 00:00 :00 No 02827 Jaden Serafin Ponce TRELEGY ELLIPTA 200-62.5-25 2021-05 1-08 00:00: 00 Yes Jaden Ponce AZITHROMYCI N 250 MG 2021-05 0-27 00:00: 00 Yes 250 Jadenluna Ponce TRELEGY ELLIPTA 200-62.5-25 2022-1 0-27 00:00: 00 Yes [id number] Jaden Ponce ATORVASTATI N 20 MG 2021-1 [...] Systolic blood pressure 2022-10-07 20:05:00 133 mm[Hg] [facility] Diastolic blood pressure 2022-10-07 20:05:00 70 mm[Hg] [facility] Heart rate 2022-10-07 20:05:00 96 /min [facility] Body height 2022-10-07 20:05:00 152.4 cm [facility] Body weight 2022-10-07 20:05:00 69.854 kg [facility] BMI 2022-10-07 20:05:00 30.08 kg/m2 [facility] BP Systolic 2024-02-25 10:57:00 133 mm[Hg] [...] Heart Rate 2023-08-04 11:15:00 Kinga en F Krsi Respiratory Rate 2023-08-04 11:15:00 Jaden F Kris [...] Ponce BP Diastolic 2021-11-30 11:14:00 78 mm[Hg] Mnany Ponce Weight Measured 2021-11-30 11:14:00 144.20 pounds [...] EXTERNAL PROVIDER RECORDS 2022-10-21 05:01:00 Doctor Unassigned, Kirkman [facility] RADIOLOGY DOCUMENTATION 2022-10-11 05:01:00 Doct or Unassigned, Kirkman [facility] MEDICAL RELEASE/CLEARANCE FORMS 2022-10-09 05:01:00 Doctor Unassigned, Kirkman [facility] Plan of Care Planned Activity Planned Date Details Comments Source Goal Plan of Care Note [code = 83449-5] Goal Plan of Care Note [code = 71304-8] Goal Plan of Care Note [code = 81311-3] Goal Plan of Care Note [code = 71201-5] Goal Plan of Care Note [code = 67385-4] Goal Plan of Care Note [code = 60991-4] Goal Plan of Care Note [code = 48454-6] Goal Plan of Care Note [code = 16241-4] Goal Plan of Care Note [code = 89914-2] Goal Plan of Care Note [code = 62827-0] Goal Plan of Care Note [code = 82959-0] Goal Plan of Care Note [code = 31194-6] Goal Plan of Care Note [code = 95837-8] Goal Plan of Care Note [code = 88926-4] Goal Plan of Care Note [code = 82846-5] Goal Plan of Care Note [code = 61106-3] Goal Plan of Care Note [code = 03457-2] Goal Plan of Care Note [code = 22253-4] Goal Plan of Care Note [code = 20504-9] Goal Plan of Care Note [code = 96289-5] Goal Plan of Care Note [code = 83097-7] Goal Plan of Care Note [code = 75227-5] Goal Plan of Care Note [code = 86190-1] Goal Plan of Care Note [code = 26995-8] Goal Plan of Care Note [code = 79520-5] Goal Plan of Care Note [code = 13955-1] Goal Plan of Care Note [code = 68854-1] Goal Plan of Care Note [code = 35158-7] Goal Plan of Care Note [code = 88854-7] Goal Plan of Care Note [code = 48208-7] Goal Plan of Care Note [code = 01373-4] Goal Plan of Care Note [code = 88146-9] Goal Plan of Care Note [code = 87986-9] Goal Plan of Care Note [code = 83557-4] Goal Plan of Care Note [code = 07593-8] Goal Plan of Care Note [code = 72142-4] Goal Plan of Care Note [code = 44115-1] Goal Plan of Care Note [code = 55214-3] Goal Plan of Care Note [code = 12922-7] Goal Plan of Care Note [code = 95025-0] Goal Plan of Care Note [code = 39238-2] Goal Plan of Care Note [code = 81125-4] Goal Plan of Care Note [code = 99796-3] Goal Plan of Care Note [code = 63140-4] Goal Plan of Care Note [code = 32589-6] Goal Plan of Care Note [code = 36252-4] Goal Plan of Care Note [code = 12354-3] Goal Plan of Care Note [code = 01044-8] Goal Plan of Care Note [code = 28904-3] Goal Plan of Care Note [code = 63927-5] Goal Plan of Care Note [code = 32283-9] Goal Plan of Care Note [code = 96357-5] Goal Plan of Care Note [code = 97222-6] Goal Plan of Care Note [code = 24075-1] Goal Plan of Care Note [code = 85661-5] Goal Plan of Care Note [code = 53202-0] Goal Plan of Care Note [code = 71522-6] Goal Plan of Care Note [code = 15795-0] Goal Plan of Care Note [code = 94765-9] Goal Plan of Care Note [code = 49448-4] Goal Plan of Care Note [code = 75095-6] Goal Plan of Care Note [code = 75670-0] Goal Plan of Care Note [code = 83337-7] Goal Plan of Care Note [code = 74893-6] Goal Plan of Care Note [code = 34282-5] Goal Plan of Care Note [code = 96555-9] Goal Plan of Care Note [code = 24982-0] Goal Plan of Care Note [code = 80170-5] Goal Plan of Care Note [code = 83274-1] Goal Plan of Care Note [code = 14147-2] Goal Plan of Care Note [code = 67062-0] Goal Plan of Care Note [code = 60777-4] Goal Plan of Care Note [code = 45696-7] Goal Plan of Care Note [code = 55030-3] Goal Plan of Care Note [code = 07015-7] Goal Plan of Care Note [code = 40982-3] Goal Plan of Care Note [code = 29446-6] Goal Plan of Care Note [code = 27501-9] Goal Plan of Care Note [code = 32499-5] Goal Plan of Care Note [code = 24854-7] Goal Plan of Care Note [code = 42891-2] Goal Plan of Care Note [code = 65732-9] Goal Plan of Care Note [code = 30851-9] Encounters Start Date/Time End Date/Time Encounter Type Admission Type Attending [facility] Facility Care Department Encounter ID Source 2024-04-16 11:56:43 2024-04-16 11:56:43 Outpatient [facility] [id number] Jaden F Kris 2024-03-16 16:43:16 2024-03-16 16:43:16 Outpatient [facility] [id number] Jaden Serafin Kris 2024-02-25 10:41:50 2024-02-25 10:41:50 Outpatient [facility] [id number] Jaden F Kris 2024-02-25 00:00:00 2024-02-25 00:00:00 Outpatient Visit [facility] [id number] Jaden Serafin Kris 2024-02-06 13:53:09 2024-02-06 13:53:09 Outpatient [facility]FA [facility] [id number] Jaden Betancourt Kris 2024-02-06 00:00:00 2024-02-06 00:00:00 Outpatient Visit [facility] [id number] Jaden Betancourt Kris 2024-01-15 15:58:11 2024-01-15 15:58:11 Outpatient [facility] [id number] Jaden Betancourt Kris 2023-12-15 08:41:47 2023-12-15 08:41:47 Outpatient [facility] 0729 Jaden Betancourt Kris 2023-11-13 00:00:00 2023-11-13 00:00:00 Outpatient Visit [facility] [id number] Jaden Betancourt Kris 2023-11-10 14:10:07 2023-11-10 14:10:07 Outpatient [facility] [id number] Jaden Betancourt [facility] 2023-10-14 15:51:09 2023-10-14 15:51:09 Outpatient [facility] 527 Jaden Betancourt [facility] 2023-09-15 16:15:18 2023-09-15 16:15:18 Outpatient [facility] [id number] 0429 aJden Betancourt [facility] 2023-08-26 15:52:22 2023-08-26 15:52:22 Outpatient [facility] [id number] Jaden Betancourt [facility] 2023-08-14 09:36:17 2023-08-14 09:36:17 Outpatient [facility] [id number] Jaden Betancourt [facility] 2023-07-14 14:28:32 2023-07-14 14:28:32 Outpatient [facility] 022 Jaden Betancourt [facility] 2023-06-18 10:02:18 2023-06-18 10:02:18 Outpatient [facility] [id number] Jaden [address] [facility] 2023-06-17 17:18:38 2023-06-17 17:18:38 Outpatient [facility] [id number] Jaden [address]ourt [facility] 2023-06-12 15:47:52 2023-06-12 15:47:52 Outpatient [facility] [id number] Jaden Betancourt Kris 2023-04-28 14:22:48 2023-04-28 14:22:48 Outpatient [facility] [id number] Jaden Ponce 2023-03-19 16:04:06 2023-03-19 16:04:06 Outpatient [facility] [id number] Jaden Betancourt Kris 2023-02-27 13:54:38 2023-02-27 13:54:38 Outpatient [facility] [id number] Jaden Betancourt [facility] 2023-02-18 14:41:08 2023-02-18 14:41:08 Outpatient [facility] [id number] Jaden Betancourt [facility] 2023-01-30 17:52:20 2023-01-30 17:52:20 Outpatient [facility] [id number] Jaden Betancourt [facility] 2023-01-14 12:11:29 2023-01-14 12:11:29 Outpatient [facility] [id number] Jaden Betancourt [facility] 2022-12-11 17:36:37 2022-12-11 17:36:37 Outpatient [facility] [id number] Jaden [address] [facility] 2022-10-21 00:00:00 2022-10-21 00:00:00 Orders Only Doctor Unassigned, Kirkman [address]114 350.1.13.10 4.2.7.2.686 [id number] [facility] 2022-10-15 00:00:00 2022-10-15 00:00:00 Telephone Maegan Denny [facility] 1.840.114 350.1.13.10 4.2.7.2.686 [id number] [facility] 2022-10-11 00:00:00 2022-10-11 00:00:00 Orders Only Doctor Unassigned, Kirkman [address]114 350.1.13.10 4.2.7.2.686 [id number] [facility] 2022-10-11 00:00:00 2022-10-11 00:00:00 [facility] 1.2840.114 350.1.13.10 4.2.7.2.686 [id number] [facility] 2022-10-09 00:00:00 2022-10-09 00:00:00 Orders Only Doctor Unassigned, Kirkman [facility] 1.84.114 350.1.13.10 4.2.7.2.686 [id number] [facility] 2022-10-09 00:00:00 2022-10-09 00:00:00 Telephone Maegan Denny [facility] 1.840.114 350.1.13.10 4.2.7.2.686 [id number] [facility] 2022-10-07 14:30:00 2022-10-07 16:47:40 Outpatient R MAEGAN DENNY [facility] [id number] [facility] 2022-10-07 14:30:00 2022-10-07 16:47:40 Office Visit Maegan Denny [facility] 1.840.114 350.1.13.10 4.2.7.2.686 [id number] [facility] 2022-10-07 00:00:00 2022-10-07 00:00:00 Telephone Maegan Denny [facility] 1.2840.114 350.1.13.10 4.2.7.2.686 [id number] [facility] 2022-10-02 00:00:00 2022-10-02 00:00:00 Telephone Maegan Denny Eliana [facility] 1.2.840.114 350.1.13.10 4.2.7.2.686 [id number] [facility] 2022-08-20 13:43:24 2022-08-20 13:43:24 Outpatient [facility] [id number] Jaden Ponce 2022-05-29 14:07:16 2022-05-29 14:07:16 Outpatient [facility] [id number] Jaden Ponce 2022-04-30 15:19:29 2022-04-30 15:19:29 Outpatient [facility] [id number] Jaden Ponce 2022-04-30 00:00:00 2022-04-30 00:00:00 Outpatient Visit [id number] 2022-03-27 00:00:00 2022-03-27 00:00:00 Outpatient DMG DMG [id number] [facility] 2022-03-26 09:54:48 2022-03-26 09:54:48 Outpatient [facility] 1108 Jaden Ponce 2022-03-26 00:00:00 2022-03-26 00:00:00 Outpatient Visit [id number] 2022-02-25 11:04:30 2022-02-25 11:04:30 Outpatient [facility] [id number] Jaden Ponce 2022-02-25 00:00:00 2022-02-25 00:00:00 Outpatient Visit [id number] 2021-11-30 00:00:00 2021-11-30 00:00:00 Outpatient Visit [id number] 2021-11-27 04:42:00 2021-11-27 04:42:[address] [facility] [id number] 0712 [facility] Program Results Test Description Test Time Test Comments Results Result Co mments Source TSH, THIRD [id number] 07:15:39* Test Item Value Reference Range Interpretation Comme nts TSH, THIRD GENERATION (test code = 2821) 0.265 UIU/ML 0.400-4.100 L C-REACTIVE [id number] 05:45:48* Test Item Value Reference Range Interpretation Comme nts C-REACTIVE PROTEIN (test cod e = 3513) <0.3 MG/DL <0.5 COMPREHENSIVE METABOLIC [id number] 05:45:07* Test Item Value Reference Range Interpretation Comme nts GLUCOSE (test code = 2217) 178 MG/DL 70-99 H BUN (test code = 2208) 15 MG/DL 8-23 CREATININE (test code = 2214) 0.47 MG/DL 0.60-1.30 L eGFR (2020 CKD-EPI) (test code = 73711) 104 ML/MIN/1.73 >60 CALC BUN/CREAT (test code [...] code = 2219) 17 U/L 5-40 HEMOGLOBIN [id number] 04:57:52* Test Item Value Reference Range Interpretation Comme nts HEMOGLOBIN A1c (test code = 98511) 5.8 % 4.2-5.6 H [employer] GUIDELINES FOR HGB A1C: [...] CONSIDER ALTERNATE TESTING OR LABORATORY CONSULTATION. SEDIMENTATION [id number] 04:22:25* Test Item Value Reference Range Interpretation Comme nts SEDIMENTATION RATE (test cod e = 1017) 2 MM/HOUR 0-20 CBC W/AUTO DIFF WITH [id number] 02:36:55* Test Item Value Reference Range Interpretation [...] H ABS NUCLEATED RBCS (test code = 24386) 0.00 K/UL 0.00-0.11 HEMOGLOBIN [id number] 00:00:00* Test Item Value Reference Range Interpretation Comme nts HEMOGLOBIN A1c (test code = 00292) 5.8 % Jaden Betancourt KrisCOMPREHENSIVE METABOLIC [id number] 00:00:00* Test Item Value Reference Range Interpretation Comme nts GLUCOSE (test code = 2217) 178 MG/DL BUN (test code = 2208) 15 MG/DL CREATININE (test code = 2214) 0.47 MG/DL eGFR (2020 CKD-EPI) (test code = 66852) 104 ML/MIN/1.73 CALC BUN/CREAT (test code = [...] 0.3 MG/DL ALKALINE PHOSPHATASE (test code = 220) 118 U/L AST (test code = 2218) 10 U/L ALT (test code = 2219) 17 U/L Jaden PonceTSH, THIRD [id number] 00:00:00* Test Item Value Reference Range Interpretation Comme nts TSH, THIRD GENERATION (test code = 2821) 0.265 UIU/ML Jaden PonceSEDIMENTATION [id number] 00:00:00* Test Item Value Reference Range Interpretation Comme nts SEDIMENTATION RATE (test cod e = 1017) 2 MM/HOUR Jaden PonceC-REACTIVE [id number] 00:00:00* Test Item Value Reference Range Interpretation Comme nts C-REACTIVE PROTEIN (test cod e = 3513) <0.3 MG/DL Jaden PonceVITAMIN D, 25 [id number] 00:00:00* Test Item Value Reference Range Interpretation Comme nts VITAMIN D, 25 OH (test code = 4958) 34 NG/ML Jaden PonceCBC W/AUTO [id number] 00:00:00* Test Item Value Reference Range Interpretation [...] ABS NUCLEATED RBCS (test cod e = 55684) 0.00 K/UL Jaden PonceHEMOGLOBIN [id number] 00:00:00* Test Item Value Reference Range Interpretation Comme nts HEMOGLOBIN A1c (test code = 77678) 5.8 % Jaden PonceCOMPREHENSIVE METABOLIC [id number] 00:00:00* Test Item Value Reference Range Interpretation Comme nts GLUCOSE (test code = 2217) 178 MG/DL BUN (test code = 2208) 15 MG/DL CREATININE (test code = 2214) 0.47 MG/DL eGFR (2020 CKD-EPI) (test code = 31925) 104 ML/MIN/1.73 CALC BUN/CREAT (test code = [...] = 2219) 17 U/L Jaden PonceTSH, THIRD [id number] 00:00:00* Test Item Value Reference Range Interpretation Comme nts TSH, THIRD GENERATION (test code = 2821) 0.265 UIU/ML Jaden PonceSEDIMENTATION [id number] 00:00:00* Test Item Value Reference Range Interpretation Comme nts SEDIMENTATION RATE (test cod e = 1017) 2 MM/HOUR Jaden PonceC-REACTIVE [id number] 00:00:00* Test Item Value Reference Range Interpretation Comme nts C-REACTIVE PROTEIN (test cod e = 3513) <0.3 MG/DL Jaden PonceVITAMIN D, 25 [id number] 00:00:00* Test Item Value Reference Range Interpretation Comme nts VITAMIN D, 25 OH (test code = 4958) 34 NG/ML Jaden PonceCBC W/AUTO [id number] 00:00:00* Test Item Value Reference Range Interpretation [...] ABS NUCLEATED RBCS (test cod e = 65527) 0.00 K/UL Jaden PonceHEMOGLOBIN [id number] 00:00:00* Test Item Value Reference Range Interpretation Comme adrián HEMOGLOBIN A1c (test code = 34220) 5.8 % Jaden PonceCOMPREHENSIVE METABOLIC [id number] 00:00:00* Test Item Value Reference Range Interpretation Comme nts GLUCOSE (test code = 2217) 178 MG/DL BUN (test code = 2208) 15 MG/DL CREATININE (test code = 2214) 0.47 MG/DL eGFR (2020 CKD-EPI) (test code = 08181) 104 ML/MIN/1.73 CALC BUN/CREAT (test code = [...] = 2219) 17 U/L Jaden PonceTSH, THIRD [id number] 00:00:00* Test Item Value Reference Range Interpretation Comme adrián TSH, THIRD GENERATION (test code = 2821) 0.265 UIU/ML Jaden PonceSEDIMENTATION [id number] 00:00:00* Test Item Value Reference Range Interpretation Comme nts SEDIMENTATION RATE (test cod e = 1017) 2 MM/HOUR Jaden PonceC-REACTIVE [id number] 00:00:00* Test Item Value Reference Range Interpretation Comme nts C-REACTIVE PROTEIN (test cod e = 3513) <0.3 MG/DL Jaden PonceVITAMIN D, 25 [id number] 00:00:00* Test Item Value Reference Range Interpretation Comme adrián VITAMIN D, 25 OH (test code = 4958) 34 NG/ML Jaden PonceCBC W/AUTO [id number] 00:00:00* Test Item Value Reference Range Interpretation [...] ABS NUCLEATED RBCS (test cod e = 57348) 0.00 K/UL Jaden PonceLIPID [id number] 06:45:40* Test Item Value Reference Range Interpretation [...] SPECIMENS. FOR MOREINFORMATION, SEE CLIENT ANNOUNCEMENT AT [email or web address] RISK RATIO LDL/HDL (test code = 223) 1.58 RATIO <3.22 COMPREHENSIVE METABOLIC [id number] 06:45:40* Test Item Value Reference Range Interpretation Comme nts GLUCOSE (test code = 2216) 185 MG/DL 70-99 H BUN (test code = 2207) 10 MG/DL 8-23 CREATININE (test code = 221) 0.55 MG/DL 0.60-1.30 L eGFR (2020 CKD-EPI) (test code = 57991) 101 ML/MIN/1.73 >60 CALC BUN/CREAT (test code = 2235) 18 RATIO 6-28 SODIUM (test code = 223) 134 MEQ/L 133-146 POTASSIUM (test code = 222) 3.5 MEQ/L 3.5-5.4 CHLORIDE (test code = 2214) 94 MEQ/L 95-107 L CARBON DIOXIDE (test code = 6) 23 MEQ/L 19-31 CALCIUM (test code = 2209) 10.0 MG/DL 8.5-10.5 PROTEIN, TOTAL (test code = 222) 7.2 G/DL 6.1-8.3 ALBUMIN (test code = [...] as normal/abnormal. ALKALINE PHOSPHATASE (test code = 220) 101 U/L 40-142 AST (test code = 2218) 15 U/L 9-40 ALT (test code = 2219) 17 U/L 5-40 [facility] has impo rtant pathology staff changes effective 07/17/2022. New pathology staff will provide uninterrupted, excellent patient care and clinical consultation. See URL: [email or web address]. UNLESS OTHERWISE INDICATED, ALL TESTING PERFORMED AT [facility] [address] [place] [place] [address] [employer] MIXER: JOEY SILVA M.D. [place] NUMBER [id number] [facility] [place]. [id number] HEMOGLOBIN [id number] 03:45:25* Test Item Value Reference Range Interpretation Comme nts HEMOGLOBIN A1c (test code = 55948) 6.1 % 4.2-5.6 H [employer] GUIDELINES FOR HGB A1C: [...] OR LABORATORY CONSULTATION. CBC W/AUTO DIFF WITH [id number] 02:39:50* Test Item Value Reference Range Interpretation [...] H ABS NUCLEATED RBCS (test code = 67494) 0.00 K/UL 0.00-0.11 HEMOGLOBIN [id number] 00:00:00* Test Item Value Reference Range Interpretation Comme nts HEMOGLOBIN A1c (test code = 55503) 6.1 % Jaden F Mt ZionLIPID [id number] 00:00:00* Test Item Value Reference Range Interpretation Comme nts CHOLESTEROL (test code = 2210) 219 MG/DL TRIGLYCERIDES (test code = 2232) 85 MG/DL HDL CHOLESTEROL (test code = 2220) 78 MG/DL CALC LDL CHOL (test code = 2237) 123 MG/DL RISK RATIO LDL/HDL (test cod e = 2238) 1.58 RATIO Jaden Betancourt KrisCOMPREHENSIVE METABOLIC [id number] 00:00:00* Test Item Value Reference Range Interpretation Comme nts GLUCOSE (test code = 2217) 185 MG/DL BUN (test code = 2208) 10 MG/DL CREATININE (test code = 2214) 0.55 MG/DL eGFR (2020 CKD-EPI) (test code = 24117) 101 ML/MIN/1.73 CALC BUN/CREAT (test code = [...] = 2219) 17 U/L Jaden PonceCBC W/AUTO [id number] 00:00:00* Test Item Value Reference Range Interpretation [...] ABS NUCLEATED RBCS (test cod e = 20191) 0.00 K/UL Jaden Serafin KrisHEMOGLOBIN [id number] 00:00:00* Test Item Value Reference Range Interpretation Comme nts HEMOGLOBIN A1c (test code = 55706) 6.1 % Jaden PonceLIPID [id number] 00:00:00* Test Item Value Reference Range Interpretation Comme nts CHOLESTEROL (test code = 2210) 219 MG/DL TRIGLYCERIDES (test code = 2232) 85 MG/DL HDL CHOLESTEROL (test code = 2220) 78 MG/DL CALC LDL CHOL (test code = 2237) 123 MG/DL RISK RATIO LDL/HDL (test cod e = 2238) 1.58 RATIO Jaden PonceCOMPREHENSIVE METABOLIC [id number] 00:00:00* Test Item Value Reference Range Interpretation Comme nts GLUCOSE (test code = 2217) 185 MG/DL BUN (test code = 2208) 10 MG/DL CREATININE (test code = 2214) 0.55 MG/DL eGFR (2020 CKD-EPI) (test code = 55809) 101 ML/MIN/1.73 CALC BUN/CREAT (test code = [...] = 2219) 17 U/L Jaden PonceCBC W/AUTO [id number] 00:00:00* Test Item Value Reference Range Interpretation [...] ABS NUCLEATED RBCS (test cod e = 66940) 0.00 K/UL Jaden PonceHEMOGLOBIN [id number] 00:00:00* Test Item Value Reference Range Interpretation Comme nts HEMOGLOBIN A1c (test code = 36629) 6.1 % Jaden PonceLIPID [id number] 00:00:00* Test Item Value Reference Range Interpretation Comme nts CHOLESTEROL (test code = 2210) 219 MG/DL TRIGLYCERIDES (test code = 2232) 85 MG/DL HDL CHOLESTEROL (test code = 2220) 78 MG/DL CALC LDL CHOL (test code = 2237) 123 MG/DL RISK RATIO LDL/HDL (test cod e = 2238) 1.58 RATIO Jaden PonceCOMPREHENSIVE METABOLIC [id number] 00:00:00* Test Item Value Reference Range Interpretation Comme nts GLUCOSE (test code = 2217) 185 MG/DL BUN (test code = 2208) 10 MG/DL CREATININE (test code = 2214) 0.55 MG/DL eGFR (2020 CKD-EPI) (test code = 35029) 101 ML/MIN/1.73 CALC BUN/CREAT (test code = [...] code = 2219) 17 U/L Jaden Betancourt [facility] W/AUTO [id number] 00:00:00* Test Item Value Reference Range Interpretation [...] ABS NUCLEATED RBCS (test cod e = 27426) 0.00 K/UL Jaden PonceOCCULT BLD,FECAL,[facility]AS[facility]-[id number] 15:52:05* Test Item Value Reference Range Interpretation Comme nts OCCULT BLD, FECAL (test code = 49842) NEGATIVE NEGATIVE [facility] has important pathology staff changes effective 07/17/2022. New pathology staff will provide uninterrupted, excellent patient care and clinical consultation. See URL: [email or web address]. UNLESS OTHERWISE INDICATED, ALL TESTING PERFORMED AT [facility] [address] [place] [address] CLIA: [id number], CAP: [id number] OCCULT BLD,FECAL,[facility]ASSAY [facility]-[id number] 00:00:00* Test Item Value Reference Range Interpretation Comme nts OCCULT BLD, FECAL (test code = 96739) NEGATIVE Jaden Betancourt AustinOCCULT BLD,FECAL,IMMUNOASSAY [facility]-[id number] 00:00:00* Test Item Value Reference Range Interpretation Comme nts OCCULT BLD, FECAL (test code = 11799) NEGATIVE Jaden Betancourt AustinOCCULT BLD,FECAL,IMMUNOASSAY [facility]-[id number] 00:00:00* Test Item Value Reference Range Interpretation Comme nts OCCULT BLD, FECAL (test code = 54702) NEGATIVE Jaden May, THIRD [id number] 06:49:25* Test Item Value Reference Range Interpretation Comme nts TSH, THIRD GENERATION (test code = 2821) 1.600 UIU/ML 0.400-4.100 [id number] 06:45:12* Test Item Value Reference Range Interpretation Comme nts NT-proBNP (test code = 46831) <50 PG/ML SEE BELOW If NT-ProBNP is less than 300 PG/ML, heart failure is unlikely for allages. Age.................Heart Failure Likely <50 Years...........>=450 PG/ML 50-75 Years.........>=900 PG/ML > 75 Years..........>=1800 PG/ML Methodology: Alyse Kimani Electrochemiluminescense Immunoassay UNLESS OTHERWISE INDICATED, ALL TESTING PERFORMED [facility] [address] [place] [address] [employer] MIXER: ELIAS ESPANA M.D. [place] NUMBER [id number] [facility] [place]. [id number] COMPREHENSIVE METABOLIC [id number] 04:56:47* Test Item Value Reference Range Interpretation Comme nts GLUCOSE (test code = 2216) 137 MG/DL 70-99 H BUN (test code = 2207) 12 MG/DL 8-23 CREATININE (test code = 2213) 0.60 MG/DL 0.60-1.30 eGFR (2020 CKD-EPI) (test code = 29105) 99 ML/MIN/1.73 >60 CALC BUN/CREAT (test code = 5) 20 RATIO 6-28 SODIUM (test code = 223) 143 MEQ/L 133-146 POTASSIUM (test code = 2228) 4.3 MEQ/L 3.5-5.4 CHLORIDE (test code = 2214) 105 MEQ/L 95-107 CARBON DIOXIDE (test code = 2206) 25 MEQ/L 19-31 CALCIUM (test code = 2209) 9.6 MG/DL 8.5-10.5 PROTEIN, TOTAL (test code [...] code = 2219) 11 U/L 5-40 LIPID [id number] 04:56:47* Test Item Value Reference Range Interpretation [...] SPECIMENS. FOR MOREINFORMATION, SEE CLIENT ANNOUNCEMENT AT [email or web address] RISK RATIO LDL/HDL (test code = 2238) 2.59 RATIO <3.22 HEMOGLOBIN [id number] 04:00:46* Test Item Value Reference Range Interpretation Comme nts HEMOGLOBIN A1c (test code = 34512) 5.9 % 4.2-5.6 H CBC W/AUTO DIFF WITH [id number] 02:37:32* Test Item Value Reference Range Interpretation [...] = 1065) 0.0 /100 WBC'S See_Comment [Automated [employer] ge] The system which generated this result [...] 0.00-0.10 ABS NUCLEATED RBCS (test code = 61824) 0.00 K/UL 0.00-0.11 CBC W/AUTO [id number] 00:00:00* Test Item Value Reference Range Interpretation [...] ABS NUCLEATED RBCS (test cod e = 29250) 0.00 K/UL Jaden PonceCOMPREHENSIVE METABOLIC [id number] 00:00:00* Test Item Value Reference Range Interpretation Comme nts GLUCOSE (test code = 2217) 137 MG/DL BUN (test code = 2208) 12 MG/DL CREATININE (test code = 2214) 0.60 MG/DL eGFR (2020 CKD-EPI) (test co de = 25206) 99 ML/MIN/1.73 CALC BUN/CREAT (test code = [...] code = 2219) 11 U/L Jaden PonceLIPID [id number] 00:00:00* Test Item Value Reference Range Interpretation Comme nts CHOLESTEROL (test code = 2210) 236 MG/DL TRIGLYCERIDES (test code = 2232) 274 MG/DL HDL CHOLESTEROL (test code = 2220) 54 MG/DL CALC LDL CHOL (test code = 2237) 140 MG/DL RISK RATIO LDL/HDL (test cod e = 2238) 2.59 RATIO Jaden PonceTSH, THIRD [id number] 00:00:00* Test Item Value Reference Range Interpretation Comme nts TSH, THIRD GENERATION (test code = 2821) 1.600 UIU/ML Jaden PonceTjzrziWQ-[id number] 00:00:00* Test Item Value Reference Range Interpretation Comme nts NT-proBNP (test code = 34865) <50 PG/ML Jaden PonceHEMOGLOBIN [id number] 00:00:00* Test Item Value Reference Range Interpretation Comme nts HEMOGLOBIN A1c (test code = 17718) 5.9 % Jaden PonceCBC W/AUTO [id number] 00:00:00* Test Item Value Reference Range Interpretation [...] ABS NUCLEATED RBCS (test cod e = 79390) 0.00 K/UL Jaden PonceCOMPREHENSIVE METABOLIC [id number] 00:00:00* Test Item Value Reference Range Interpretation Comme nts GLUCOSE (test code = 2217) 137 MG/DL BUN (test code = 2208) 12 MG/DL CREATININE (test code = 2214) 0.60 MG/DL eGFR (2020 CKD-EPI) (test co de = 00715) 99 ML/MIN/1.73 CALC BUN/CREAT (test code = [...] code = 2219) 11 U/L Jaden PonceLIPID [id number] 00:00:00* Test Item Value Reference Range Interpretation Comme nts CHOLESTEROL (test code = 2210) 236 MG/DL TRIGLYCERIDES (test code = 2232) 274 MG/DL HDL CHOLESTEROL (test code = 2220) 54 MG/DL CALC LDL CHOL (test code = 2237) 140 MG/DL RISK RATIO LDL/HDL (test cod e = 2238) 2.59 RATIO Jaden PonceTSH, THIRD [id number] 00:00:00* Test Item Value Reference Range Interpretation Comme adrián TSH, THIRD GENERATION (test code = 2821) 1.600 UIU/ML Jaden PonceFvsmkxAK-[id number] 00:00:00* Test Item Value Reference Range Interpretation Comme nts NT-proBNP (test code = 36438) <50 PG/ML Jaden PonceHEMOGLOBIN [id number] 00:00:00* Test Item Value Reference Range Interpretation Comme nts HEMOGLOBIN A1c (test code = 65136) 5.9 % Jaden PonceCBC W/AUTO [id number] 00:00:00* Test Item Value Reference Range Interpretation [...] ABS NUCLEATED RBCS (test cod e = 54534) 0.00 K/UL Jaden Betancourt AustinCOMPREHENSIVE METABOLIC [id number] 00:00:00* Test Item Value Reference Range Interpretation Comme nts GLUCOSE (test code = 2217) 137 MG/DL BUN (test code = 2208) 12 MG/DL CREATININE (test code = 2214) 0.60 MG/DL eGFR (2020 CKD-EPI) (test co de = 94293) 99 ML/MIN/1.73 CALC BUN/CREAT (test code = [...] code = 2219) 11 U/L Jaden PonceLIPID [id number] 00:00:00* Test Item Value Reference Range Interpretation Comme nts CHOLESTEROL (test code = 2210) 236 MG/DL TRIGLYCERIDES (test code = 2232) 274 MG/DL HDL CHOLESTEROL (test code = 2220) 54 MG/DL CALC LDL CHOL (test code = 2237) 140 MG/DL RISK RATIO LDL/HDL (test cod e = 2238) 2.59 RATIO Jaden PonceTSH, THIRD [id number] 00:00:00* Test Item Value Reference Range Interpretation Comme adrián TSH, THIRD GENERATION (test code = 2821) 1.600 UIU/ML Jaden PonceYjsfksAG-[id number] 00:00:00* Test Item Value Reference Range Interpretation Comme adrián NT-proBNP (test code = 49672) <50 PG/ML Jaden PonceHEMOGLOBIN [id number] 00:00:00* Test Item Value Reference Range Interpretation Comme adrián HEMOGLOBIN A1c (test code = 25414) 5.9 % Jaden PonceHEMOGLOBIN [id number] 00:00:00* Test Item Value Reference Range Interpretation Comme adrián HEMOGLOBIN A1c (test code = 57637) 5.9 % CBC W/AUTO [id number] 00:00:00* Test Item Value Reference Range Interpretation [...] ABS NUCLEATED RBCS (test cod e = 67406) 0.00 K/UL COMPREHENSIVE METABOLIC [id number] 00:00:00* Test Item Value Reference Range Interpretation Comme nts GLUCOSE (test code = 2217) 137 MG/DL BUN (test code = 2208) 12 MG/DL CREATININE (test code = 2214) 0.60 MG/DL eGFR (2020 CKD-EPI) (test co de = 56567) 99 ML/MIN/1.73 CALC BUN/CREAT (test code = [...] (test code = 2219) 11 U/L LIPID [id number] 00:00:00* Test Item Value Reference Range Interpretation Comme nts CHOLESTEROL (test code = 2210) 236 MG/DL TRIGLYCERIDES (test code = 2232) 274 MG/DL HDL CHOLESTEROL (test code = 2220) 54 MG/DL CALC LDL CHOL (test code = 2237) 140 MG/DL RISK RATIO LDL/HDL (test cod e = 2238) 2.59 RATIO TSH, THIRD [id number] 00:00:00* Test Item Value Reference Range Interpretation Comme nts TSH, THIRD GENERATION (test code = 2821) 1.600 UIU/ML [id number] 00:00:00* Test Item Value Reference Range Interpretation Comme nts NT-proBNP (test code = 38703) <50 PG/ML HEMOGLOBIN [id number] 00:00:00* Test Item Value Reference Range Interpretation Comme nts HEMOGLOBIN A1c (test code = 10452) 5.9 % CBC W/AUTO [id number] 00:00:00* Test Item Value Reference Range Interpretation [...] ABS NUCLEATED RBCS (test cod e = 82157) 0.00 K/UL COMPREHENSIVE METABOLIC [id number] 00:00:00* Test Item Value Reference Range Interpretation Comme nts GLUCOSE (test code = 2217) 137 MG/DL BUN (test code = 2208) 12 MG/DL CREATININE (test code = 2214) 0.60 MG/DL eGFR (2020 CKD-EPI) (test co de = 84093) 99 ML/MIN/1.73 CALC BUN/CREAT (test code = [...] (test code = 2219) 11 U/L LIPID [id number] 00:00:00* Test Item Value Reference Range Interpretation Comme nts CHOLESTEROL (test code = 2210) 236 MG/DL TRIGLYCERIDES (test code = 2232) 274 MG/DL HDL CHOLESTEROL (test code = 2220) 54 MG/DL CALC LDL CHOL (test code = 2237) 140 MG/DL RISK RATIO LDL/HDL (test cod e = 2238) 2.59 RATIO TSH, THIRD [id number] 00:00:00* Test Item Value Reference Range Interpretation Comme nts TSH, THIRD GENERATION (test code = 2821) 1.600 UIU/ML [id number] 00:00:00* Test Item Value Reference Range Interpretation Comme nts NT-proBNP (test code = 03157) <50 PG/ML HEMOGLOBIN [id number] 00:00:00* Test Item Value Reference Range Interpretation Comme nts HEMOGLOBIN A1c (test code = 32941) 5.9 % CBC W/AUTO [id number] 00:00:00* Test Item Value Reference Range Interpretation [...] ABS NUCLEATED RBCS (test cod e = 09753) 0.00 K/UL COMPREHENSIVE METABOLIC [id number] 00:00:00* Test Item Value Reference Range Interpretation Comme nts GLUCOSE (test code = 2217) 137 MG/DL BUN (test code = 2208) 12 MG/DL CREATININE (test code = 2214) 0.60 MG/DL eGFR (2020 CKD-EPI) (test co de = 81801) 99 ML/MIN/1.73 CALC BUN/CREAT (test code = [...] (test code = 2219) 11 U/L LIPID [id number] 00:00:00* Test Item Value Reference Range Interpretation Comme nts CHOLESTEROL (test code = 2210) 236 MG/DL TRIGLYCERIDES (test code = 2232) 274 MG/DL HDL CHOLESTEROL (test code = 2220) 54 MG/DL CALC LDL CHOL (test code = 2237) 140 MG/DL RISK RATIO LDL/HDL (test cod e = 2238) 2.59 RATIO TSH, THIRD [id number] 00:00:00* Test Item Value Reference Range Interpretation Comme nts TSH, THIRD GENERATION (test code = 2821) 1.600 UIU/ML [id number] 00:00:00* Test Item Value Reference Range Interpretation Comme nts NT-proBNP (test code = 78514) <50 PG/ML HEMOGLOBIN [id number] 00:00:00* Test Item Value Reference Range Interpretation Comme nts HEMOGLOBIN A1c (test code = 64777) 5.9 % CBC W/AUTO [id number] 00:00:00* Test Item Value Reference Range Interpretation [...] ABS NUCLEATED RBCS (test cod e = 41636) 0.00 K/UL COMPREHENSIVE METABOLIC [id number] 00:00:00* Test Item Value Reference Range Interpretation Comme nts GLUCOSE (test code = 2217) 137 MG/DL BUN (test code = 2208) 12 MG/DL CREATININE (test code = 2214) 0.60 MG/DL eGFR (2020 CKD-EPI) (test co de = 90332) 99 ML/MIN/1.73 CALC BUN/CREAT (test code = [...] (test code = 2219) 11 U/L LIPID [id number] 00:00:00* Test Item Value Reference Range Interpretation Comme nts CHOLESTEROL (test code = 2210) 236 MG/DL TRIGLYCERIDES (test code = 2232) 274 MG/DL HDL CHOLESTEROL (test code = 2220) 54 MG/DL CALC LDL CHOL (test code = 2237) 140 MG/DL RISK RATIO LDL/HDL (test cod e = 2238) 2.59 RATIO TSH, THIRD [id number] 00:00:00* Test Item Value Reference Range Interpretation Comme nts TSH, THIRD GENERATION (test code = 2821) 1.600 UIU/ML [id number] 00:00:00* Test Item Value Reference Range Interpretation Comme nts NT-proBNP (test code = 83349) <50 PG/ML CBC W/AUTO [id number] 00:00:00* Test Item Value Reference Range Interpretation [...] ABS NUCLEATED RBCS (test cod e = 37020) 0.00 K/UL Jaden PonecCOMPREHENSIVE METABOLIC [id number] 00:00:00* Test Item Value Reference Range Interpretation Comme nts GLUCOSE (test code = 2217) 106 MG/DL BUN (test code = 2208) 7 MG/DL CREATININE (test code = 2214) 0.57 MG/DL eGFR AMER. (test cod e = 10136) 113 ML/MIN/1.73 eGFR NON- AMER. (test code = 01804) 97 ML/MIN/1.73 CALC BUN/CREAT (test code = [...] (test code = 2219) 12 U/L Jaden [id number] 00:00:00* Test Item Value Reference Range Interpretation Comme [facility] TSH, THIRD GENERATION (test code = 2821) 1.390 UIU/ML Jaden PonceHEMOGLOBIN A1c [ADDED]2021-04-05 00:00:00* Test Item Value Reference Range Interpretation Comme adrián HEMOGLOBIN A1c (test code = 96169) 5.7 % Jaden PonceLIPID [id number] 00:00:00* Test Item Value Reference Range Interpretation Comme nts CHOLESTEROL (test code = 2210) 252 MG/DL TRIGLYCERIDES (test code = 2232) 171 MG/DL HDL CHOLESTEROL (test code = 2220) 61 MG/DL CALC LDL CHOL (test code = 2237) 159 MG/DL RISK RATIO LDL/HDL (test cod e = 2238) 2.61 RATIO Jaden PonceCBC W/AUTO [id number] 00:00:00* Test Item Value Reference Range Interpretation [...] ABS NUCLEATED RBCS (test cod e = 01456) 0.00 K/UL Jaden F AustinCOMPREHENSIVE METABOLIC [id number] 00:00:00* Test Item Value Reference Range Interpretation Comme nts GLUCOSE (test code = 2217) 106 MG/DL BUN (test code = 2208) 7 MG/DL CREATININE (test code = 2214) 0.57 MG/DL eGFR AMER. (test cod e = 32977) 113 ML/MIN/1.73 eGFR NON- AMER. (test code = 21998) 97 ML/MIN/1.73 CALC BUN/CREAT (test code = [...] (test code = 2219) 12 U/L Jaden [id number] 00:00:00* Test Item Value Reference Range Interpretation Comme adrián TSH, THIRD GENERATION (test code = 2821) 1.390 UIU/ML Jaden PonceHEMOGLOBIN A1c [ADDED]2021-04-05 00:00:00* Test Item Value Reference Range Interpretation Comme adrián HEMOGLOBIN A1c (test code = 96743) 5.7 % Jaden PonceLIPID [id number] 00:00:00* Test Item Value Reference Range Interpretation Comme nts CHOLESTEROL (test code = 2210) 252 MG/DL TRIGLYCERIDES (test code = 2232) 171 MG/DL HDL CHOLESTEROL (test code = 2220) 61 MG/DL CALC LDL CHOL (test code = 2237) 159 MG/DL RISK RATIO LDL/HDL (test cod e = 2238) 2.61 RATIO Jaden PonceCBC W/AUTO [id number] 00:00:00* Test Item Value Reference Range Interpretation [...] ABS NUCLEATED RBCS (test cod e = 03592) 0.00 K/UL Jaden PonceCOMPREHENSIVE METABOLIC [id number] 00:00:00* Test Item Value Reference Range Interpretation Comme nts GLUCOSE (test code = 2217) 106 MG/DL BUN (test code = 2208) 7 MG/DL CREATININE (test code = 2214) 0.57 MG/DL eGFR AMER. (test cod e = 93392) 113 ML/MIN/1.73 eGFR NON- AMER. (test code = 94115) 97 ML/MIN/1.73 CALC BUN/CREAT (test code = [...] ALT (test code = 2219) 12 U/L Jadenluna [id number] 00:00:00* Test Item Value Reference Range Interpretation Comme adrián TSH, THIRD GENERATION (test code = 2821) 1.390 UIU/ML Jaden PonceHEMOGLOBIN A1c [ADDED]2021-04-05 00:00:00* Test Item Value Reference Range Interpretation Comme adrián HEMOGLOBIN A1c (test code = 57232) 5.7 % Jaden PonceLIPID [id number] 00:00:00* Test Item Value Reference Range Interpretation Comme nts CHOLESTEROL (test code = 2210) 252 MG/DL TRIGLYCERIDES (test code = 2232) 171 MG/DL HDL CHOLESTEROL (test code = 2220) 61 MG/DL CALC LDL CHOL (test code = 2237) 159 MG/DL RISK RATIO LDL/HDL (test cod e = 2238) 2.61 RATIO Jaden PonceLIPID [id number] 00:00:00* Test Item Value Reference Range Interpretation Comme nts CHOLESTEROL (test code = 2210) 252 MG/DL TRIGLYCERIDES (test code = 2232) 171 MG/DL HDL CHOLESTEROL (test code = 2220) 61 MG/DL CALC LDL CHOL (test code = 2237) 159 MG/DL RISK RATIO LDL/HDL (test cod e = 2238) 2.61 RATIO CBC W/AUTO [id number] 00:00:00* Test Item Value Reference Range Interpretation [...] ABS NUCLEATED RBCS (test cod e = 95179) 0.00 K/UL COMPREHENSIVE METABOLIC [id number] 00:00:00* Test Item Value Reference Range Interpretation Comme nts GLUCOSE (test code = 2217) 106 MG/DL BUN (test code = 2208) 7 MG/DL CREATININE (test code = 2214) 0.57 MG/DL eGFR AMER. (test cod e = 84236) 113 ML/MIN/1.73 eGFR NON- AMER. (test code = 00902) 97 ML/MIN/1.73 CALC BUN/CREAT (test code = [...] ALT (test code = 2219) 12 U/L [id number] 00:00:00* Test Item Value Reference Range Interpretation Comme [facility] TSH, THIRD GENERATION (test code = 2821) 1.390 UIU/ML HEMOGLOBIN A1c [ADDED]2021-04-05 00:00:00* Test Item Value Reference Range Interpretation Comme [facility] HEMOGLOBIN A1c (test code = 61081) 5.7 % LIPID [id number] 00:00:00* Test Item Value Reference Range Interpretation Comme nts CHOLESTEROL (test code = 2210) 252 MG/DL TRIGLYCERIDES (test code = 2232) 171 MG/DL HDL CHOLESTEROL (test code = 2220) 61 MG/DL CALC LDL CHOL (test code = 2237) 159 MG/DL RISK RATIO LDL/HDL (test cod e = 2238) 2.61 RATIO CBC W/AUTO [id number] 00:00:00* Test Item Value Reference Range Interpretation [...] ABS NUCLEATED RBCS (test cod e = 88105) 0.00 K/UL COMPREHENSIVE METABOLIC [id number] 00:00:00* Test Item Value Reference Range Interpretation Comme nts GLUCOSE (test code = 2217) 106 MG/DL BUN (test code = 2208) 7 MG/DL CREATININE (test code = 2214) 0.57 MG/DL eGFR AMER. (test cod e = 03725) 113 ML/MIN/1.73 eGFR NON- AMER. (test code = 33719) 97 ML/MIN/1.73 CALC BUN/CREAT (test code = [...] ALT (test code = 2219) 12 U/L [id number] 00:00:00* Test Item Value Reference Range Interpretation Comme nts TSH, THIRD GENERATION (test code = 2821) 1.390 UIU/ML HEMOGLOBIN A1c [ADDED]2021-04-05 00:00:00* Test Item Value Reference Range Interpretation Comme nts HEMOGLOBIN A1c (test code = 76391) 5.7 % LIPID [id number] 00:00:00* Test Item Value Reference Range Interpretation Comme nts CHOLESTEROL (test code = 2210) 252 MG/DL TRIGLYCERIDES (test code = 2232) 171 MG/DL HDL CHOLESTEROL (test code = 2220) 61 MG/DL CALC LDL CHOL (test code = 2237) 159 MG/DL RISK RATIO LDL/HDL (test cod e = 2238) 2.61 RATIO CBC W/AUTO [id number] 00:00:00* Test Item Value Reference Range Interpretation [...] ABS NUCLEATED RBCS (test cod e = 79090) 0.00 K/UL COMPREHENSIVE METABOLIC [id number] 00:00:00* Test Item Value Reference Range Interpretation Comme nts GLUCOSE (test code = 2217) 106 MG/DL BUN (test code = 2208) 7 MG/DL CREATININE (test code = 2214) 0.57 MG/DL eGFR AMER. (test cod e = 74933) 113 ML/MIN/1.73 eGFR NON- AMER. (test code = 92454) 97 ML/MIN/1.73 CALC BUN/CREAT (test code = [...] ALT (test code = 2219) 12 U/L [id number] 00:00:00* Test Item Value Reference Range Interpretation Comme nts TSH, THIRD GENERATION (test code = 2821) 1.390 UIU/ML HEMOGLOBIN A1c [ADDED]2021-04-05 00:00:00* Test Item Value Reference Range Interpretation Comme nts HEMOGLOBIN A1c (test code = 88982) 5.7 % LIPID [id number] 00:00:00* Test Item Value Reference Range Interpretation Comme nts CHOLESTEROL (test code = 2210) 252 MG/DL TRIGLYCERIDES (test code = 2232) 171 MG/DL HDL CHOLESTEROL (test code = 2220) 61 MG/DL CALC LDL CHOL (test code = 2237) 159 MG/DL RISK RATIO LDL/HDL (test cod e = 2238) 2.61 RATIO CBC W/AUTO [id number] 00:00:00* Test Item Value Reference Range Interpretation [...] ABS NUCLEATED RBCS (test cod e = 86356) 0.00 K/UL COMPREHENSIVE METABOLIC [id number] 00:00:00* Test Item Value Reference Range Interpretation Comme nts GLUCOSE (test code = 2217) 106 MG/DL BUN (test code = 2208) 7 MG/DL CREATININE (test code = 2214) 0.57 MG/DL eGFR AMER. (test cod e = 38786) 113 ML/MIN/1.73 eGFR NON- AMER. (test code = 92071) 97 ML/MIN/1.73 CALC BUN/CREAT (test code = [...] ALT (test code = 2219) 12 U/L [id number] 00:00:00* Test Item Value Reference Range Interpretation Comme nts TSH, THIRD GENERATION (test code = 2821) 1.390 UIU/ML HEMOGLOBIN A1c [ADDED]2021-04-05 00:00:00* Test Item Value Reference Range Interpretation Comme nts HEMOGLOBIN A1c (test code = 59132) 5.7 % HEMOGLOBIN [id number] 00:00:00* Test Item Value Reference Range Interpretation Comme nts HEMOGLOBIN A1c (test code = 31478) 5.7 % Jaden F AustinLIPID [id number] 00:00:00* Test Item Value Reference Range Interpretation Comme nts CHOLESTEROL (test code = 2210) 166 MG/DL TRIGLYCERIDES (test code = 2232) 209 MG/DL HDL CHOLESTEROL (test code = 2220) 47 MG/DL CALC LDL CHOL (test code = 2237) 89 MG/DL RISK RATIO LDL/HDL (test cod e = 2238) 1.89 RATIO Jaden PonceCOMPREHENSIVE METABOLIC [id number] 00:00:00* Test Item Value Reference Range Interpretation Comme nts GLUCOSE (test code = 2217) 106 MG/DL BUN (test code = 2208) 10 MG/DL CREATININE (test code = 2214) 0.64 MG/DL eGFR AMER. (test cod e = 09861) 110 ML/MIN/1.73 eGFR NON- AMER. (test code = 79028) 95 ML/MIN/1.73 CALC BUN/CREAT (test code = [...] (test code = 2219) 19 U/L Jaden [id number] 00:00:00* Test Item Value Reference Range Interpretation Comme nts TSH, THIRD GENERATION (test code = 2821) 1.690 UIU/ML Jaden PonceCBC W/AUTO [id number] 00:00:00* Test Item Value Reference Range Interpretation [...] code = 1015) 249 K/UL Jaden PonceHEMOGLOBIN [id number] 00:00:00* Test Item Value Reference Range Interpretation Comme adrián HEMOGLOBIN A1c (test code = 51329) 5.7 % Jaden PonceLIPID [id number] 00:00:00* Test Item Value Reference Range Interpretation Comme nts CHOLESTEROL (test code = 2210) 166 MG/DL TRIGLYCERIDES (test code = 2232) 209 MG/DL HDL CHOLESTEROL (test code = 2220) 47 MG/DL CALC LDL CHOL (test code = 2237) 89 MG/DL RISK RATIO LDL/HDL (test cod e = 2238) 1.89 RATIO Jaden PonceCOMPREHENSIVE METABOLIC [id number] 00:00:00* Test Item Value Reference Range Interpretation Comme nts GLUCOSE (test code = 2217) 106 MG/DL BUN (test code = 2208) 10 MG/DL CREATININE (test code = 2214) 0.64 MG/DL eGFR AMER. (test cod e = 97220) 110 ML/MIN/1.73 eGFR NON- AMER. (test code = 35176) 95 ML/MIN/1.73 CALC BUN/CREAT (test code = [...] (test code = 2219) 19 U/L Jaden [id number] 00:00:00* Test Item Value Reference Range Interpretation Comme nts TSH, THIRD GENERATION (test code = 2821) 1.690 UIU/ML Jaden PonceCBC W/AUTO [id number] 00:00:00* Test Item Value Reference Range Interpretation [...] code = 1015) 249 K/UL Jaden PonceHEMOGLOBIN [id number] 00:00:00* Test Item Value Reference Range Interpretation Comme adrián HEMOGLOBIN A1c (test code = 52362) 5.7 % Jaden PonceLIPID [id number] 00:00:00* Test Item Value Reference Range Interpretation Comme nts CHOLESTEROL (test code = 2210) 166 MG/DL TRIGLYCERIDES (test code = 2232) 209 MG/DL HDL CHOLESTEROL (test code = 2220) 47 MG/DL CALC LDL CHOL (test code = 2237) 89 MG/DL RISK RATIO LDL/HDL (test cod e = 2238) 1.89 RATIO Jaden PonceCOMPREHENSIVE METABOLIC [id number] 00:00:00* Test Item Value Reference Range Interpretation Comme nts GLUCOSE (test code = 2217) 106 MG/DL BUN (test code = 2208) 10 MG/DL CREATININE (test code = 2214) 0.64 MG/DL eGFR AMER. (test cod e = 50757) 110 ML/MIN/1.73 eGFR NON- AMER. (test code = 34838) 95 ML/MIN/1.73 CALC BUN/CREAT (test code = [...] (test code = 2219) 19 U/L Jaden [id number] 00:00:00* Test Item Value Reference Range Interpretation Comme nts TSH, THIRD GENERATION (test code = 2821) 1.690 UIU/ML Jaden PonceCBC W/AUTO [id number] 00:00:00* Test Item Value Reference Range Interpretation [...] (test code = 1015) 249 K[facility] [id number] 00:00:00* Test Item Value Reference Range Interpretation [...] (test code = 1015) 249 K/UL HEMOGLOBIN [id number] 00:00:00* Test Item Value Reference Range Interpretation Comme nts HEMOGLOBIN A1c (test code = 37059) 5.7 % LIPID [id number] 00:00:00* Test Item Value Reference Range Interpretation Comme nts CHOLESTEROL (test code = 2210) 166 MG/DL TRIGLYCERIDES (test code = 2232) 209 MG/DL HDL CHOLESTEROL (test code = 2220) 47 MG/DL CALC LDL CHOL (test code = 2237) 89 MG/DL RISK RATIO LDL/HDL (test cod e = 2238) 1.89 RATIO COMPREHENSIVE METABOLIC [id number] 00:00:00* Test Item Value Reference Range Interpretation Comme nts GLUCOSE (test code = 2217) 106 MG/DL BUN (test code = 2208) 10 MG/DL CREATININE (test code = 2214) 0.64 MG/DL eGFR AMER. (test cod e = 31724) 110 ML/MIN/1.73 eGFR NON- AMER. (test code = 84073) 95 ML/MIN/1.73 CALC BUN/CREAT (test code = [...] ALT (test code = 2219) 19 U/L [id number] 00:00:00* Test Item Value Reference Range Interpretation Comme nts TSH, THIRD GENERATION (test code = 2821) 1.690 UIU/ML CBC W/AUTO [id number] 00:00:00* Test Item Value Reference Range Interpretation [...] (test code = 1015) 249 K/UL HEMOGLOBIN [id number] 00:00:00* Test Item Value Reference Range Interpretation Comme nts HEMOGLOBIN A1c (test code = 92823) 5.7 % LIPID [id number] 00:00:00* Test Item Value Reference Range Interpretation Comme nts CHOLESTEROL (test code = 2210) 166 MG/DL TRIGLYCERIDES (test code = 2232) 209 MG/DL HDL CHOLESTEROL (test code = 2220) 47 MG/DL CALC LDL CHOL (test code = 2237) 89 MG/DL RISK RATIO LDL/HDL (test cod e = 2238) 1.89 RATIO COMPREHENSIVE METABOLIC [id number] 00:00:00* Test Item Value Reference Range Interpretation Comme nts GLUCOSE (test code = 2217) 106 MG/DL BUN (test code = 2208) 10 MG/DL CREATININE (test code = 2214) 0.64 MG/DL eGFR AMER. (test cod e = 08916) 110 ML/MIN/1.73 eGFR NON- AMER. (test code = 23966) 95 ML/MIN/1.73 CALC BUN/CREAT (test code = [...] ALT (test code = 2219) 19 U/L [id number] 00:00:00* Test Item Value Reference Range Interpretation Comme nts TSH, THIRD GENERATION (test code = 2821) 1.690 UIU/ML CBC W/AUTO [id number] 00:00:00* Test Item Value Reference Range Interpretation [...] (test code = 1015) 249 K/UL HEMOGLOBIN [id number] 00:00:00* Test Item Value Reference Range Interpretation Comme nts HEMOGLOBIN A1c (test code = 60973) 5.7 % LIPID [id number] 00:00:00* Test Item Value Reference Range Interpretation Comme nts CHOLESTEROL (test code = 2210) 166 MG/DL TRIGLYCERIDES (test code = 2232) 209 MG/DL HDL CHOLESTEROL (test code = 2220) 47 MG/DL CALC LDL CHOL (test code = 2237) 89 MG/DL RISK RATIO LDL/HDL (test cod e = 2238) 1.89 RATIO COMPREHENSIVE METABOLIC [id number] 00:00:00* Test Item Value Reference Range Interpretation Comme nts GLUCOSE (test code = 2217) 106 MG/DL BUN (test code = 2208) 10 MG/DL CREATININE (test code = 2214) 0.64 MG/DL eGFR AMER. (test cod e = 13753) 110 ML/MIN/1.73 eGFR NON- AMER. (test code = 13686) 95 ML/MIN/1.73 CALC BUN/CREAT (test code = [...] ALT (test code = 2219) 19 U/L [id number] 00:00:00* Test Item Value Reference Range Interpretation Comme nts TSH, THIRD GENERATION (test code = 2821) 1.690 UIU/ML CBC W/AUTO [id number] 00:00:00* Test Item Value Reference Range Interpretation [...] (test code = 1015) 249 K/UL HEMOGLOBIN [id number] 00:00:00* Test Item Value Reference Range Interpretation Comme nts HEMOGLOBIN A1c (test code = 92236) 5.7 % LIPID [id number] 00:00:00* Test Item Value Reference Range Interpretation Comme nts CHOLESTEROL (test code = 2210) 166 MG/DL TRIGLYCERIDES (test code = 2232) 209 MG/DL HDL CHOLESTEROL (test code = 2220) 47 MG/DL CALC LDL CHOL (test code = 2237) 89 MG/DL RISK RATIO LDL/HDL (test cod e = 2238) 1.89 RATIO COMPREHENSIVE METABOLIC [id number] 00:00:00* Test Item Value Reference Range Interpretation Comme nts GLUCOSE (test code = 2217) 106 MG/DL BUN (test code = 2208) 10 MG/DL CREATININE (test code = 2214) 0.64 MG/DL eGFR AMER. (test cod e = 30465) 110 ML/MIN/1.73 eGFR NON- AMER. (test code = 69323) 95 ML/MIN/1.73 CALC BUN/CREAT (test code = [...] ALT (test code = 2219) 19 U/L [id number] 00:00:00* Test Item Value Reference Range Interpretation Comme nts TSH, THIRD GENERATION (test code = 2821) 1.690 UIU/ML Notes Date/Time Note [facility]24-[facility]20 00:00:00 [facility]2024-06-27 00:00:00 [facility]
[2024-04-18] MEDS ORDERED: ONDANSETRON 4 MG/2 ML VIAL ONE (17:32)
[2024-04-18] MEDS ORDERED: MORPHINE 4 MG/ML SYR ONE (17:32)
[2024-04-18] MEDS ORDERED: FAMOTIDINE 20 MG/2 ML VIAL IV ONE (17:32)
[2024-04-18] MEDS ORDERED: NA CHLORIDE 0.9% 1,000 ML ONE (17:33)
--- NOTE | 2024-04-18 18:00 | RAD REPORT ---
EXAMINATION: CT ABDOMEN AND PELVIS WITHOUT CONTRAST CLINICAL INDICATION: ABD PAIN TECHNIQUE: CT abdomen and pelvis was performed, without IV contrast, as per department protocol. Axia l, sagittal and coronal reconstructions were obtained. One or more of the following dose reduction techniques were used: Automated exposure control, adjustment of the mA and kV according to the patien t size, and iterative reconstruction. Unless otherwise specified, incidental findings do not require dedicated imaging follow-up. COMPARISON: 04/07/2024, 03/22/2024 FINDINGS: The lack of intravenous contrast limits the sensitivity of this exam for evaluation of solid visceral organs, vascular structures, and retroperitoneum. LOWER CHEST: The visualized lung bases are clear. LIVER:Normal in size and contour. No focal lesion. Cholecystectomy clips. SPLEEN: Normal size. No focal lesion. PANCREAS: No mass, ductal dilation, or rayna-pancreatic fluid. ADRENALS: Normal; no mass. KIDNEYS AND URETERS: Normal size and contour. No hydronephrosis. URINARY BLADDER: Normal contour. GASTROINTESTINAL TRACT: No evidence of bowel obstruction, significant free fluid, free air or abscess . Moderate stool is retained throughout the colon. APPENDIX: Normal appendix. LYMPH NODES: No lymphadenopathy. MUSCULOSKELETAL: No acute or suspicious osseous abnormality. ADDITIONAL FINDINGS: None. IMPRESSION: No acute or concerning abnormalities in the abdomen or pelvis, with evaluation limited by lack of IV contrast.
[2024-04-18 18:08] LABS: PT Prothrombin Time 11.4 SECONDS (9.4-12.5); Protime INR 1.02
[2024-04-18 18:10] LABS: MCH 32.6 pg (27.0-35.0)
[2024-04-18 18:13] LABS: Absolute Lymphocytes (CBC) 1.3 K/uL (0.7-4.9); Absolute Monocytes 0.7 K/uL (0.1-1.3); Absolute Neutrophil 7.3 K/uL (1.8-8.0); Basophils % 0.3 % (0-1.3); Hematocrit 45.1 % (36.0-45.0); Hemoglobin 15.4 g/dL (12.0-15.0); Lymphocytes % 14.1 % (15.3-44.8); MCV 95.7 fL (80-100); MPV 7.5 fL (7.6-11.3); Monocytes % 7.7 % (3.3-12.3); Neutrophils % 77.9 % (41.7-73.7); Platelets 211 thou/uL (152-406); RBC Red Blood Cell Count 4.72 M/uL (3.86-4.86); Red Cell Distribution Width 14.3 % (12.1-15.2)
[2024-04-18 18:37] LABS: Albumin 3.7 g/dL (3.4-5.0); Albumin/Globulin Ratio 1.2 (1.1-1.8); Anion Gap 12.6 mEq/L (5.0-15.0); Bilirubin Direct 0.2 mg/dL (0-0.2); Bilirubin Indirect, Calculated 0.5 mg/dL (0.2-0.8); Bilirubin Total 0.7 mg/dL (0.2-1.0); Globulin 3.1 g/dL (2.3-3.5); Protein, Total 6.8 g/dL (6.4-8.2); Troponin High Sensitivity 6.6 pg/mL (<58.9)
--- NOTE | 2024-04-18 18:42 | RAD REPORT ---
EXAMINATION: ONE VIEW CHEST XR CLINICAL INDICATION: COUGH TECHNIQUE: Frontal chest projection is submitted. Examination is limited by patient positioning and t echnique. COMPARISON: No prior exam. FINDINGS: The lungs are diffusely emphysematous but grossly clear. The heart is normal in size. No displaced fr actures identified. IMPRESSION: COPD without an acute process suspected.
[2024-04-18 18:52] LABS: Potassium 3.6 mEq/L (3.5-5.1)
[2024-04-18] MEDS ORDERED: NA CHLORIDE 0.9% 500 ML ONE (19:08)
--- NOTE | 2024-04-18 19:28 | ER ---
Nurse's Notes [facility] Name: Delmi Pool Age: 69 yrs Sex: Female : 1955 Arrival Date: 04/18/2024 Time: 17:00 Bed 8 Private MD: Diagnosis: Vomiting;Dehydration;Abdominal pain, Generalized;Hypo-osmolality and hyponatremia;Tobacco abuse counseling;Tobacco use Presentation: 04/18 17:08 Chief complaint: Patient states: "I JUST GOT SENT HOME YESTERDAY AND I WASN'T READY TO bp GO". Coronavirus screen: At this time, the client does not indicate any symptoms associated with coronavirus-19. Ebola Screen: No symptoms or risks identified at this time. Initial Sepsis Screen: Does the patient meet any 2 criteria? No. Patient's initial sepsis screen is negative. Does the patient have a suspected source of infection? No. Patient's initial sepsis screen is negative. Risk Assessment: Do you want to hurt yourself or someone else? Patient reports no desire to harm self or others. Onset of symptoms was April 18, 2024. Care prior to arrival: Medication(s) given: zofran 4 mg. 17:08 Method Of Arrival: EMS: [facility] bp 17:08 Acuity: GILBERTO 3 bp Triage Assessment: 17:09 General: Appears distressed, unkempt, Behavior is cooperative, appropriate for age, bp anxious. Pain: Complains of pain in abdomen. EENT: No deficits noted. Neuro: No deficits noted. Cardiovascular: No deficits noted. Respiratory: No deficits noted. GI: Reports nausea. : No signs and/or symptoms were reported regarding the genitourinary system. Derm: No deficits noted. Musculoskeletal: No deficits noted. Historical: - Allergies: 17:09 Sulfa (Sulfonamide Antibiotics); bp 17:09 Toradol; bp 17:09 tramadol; bp - PMHx: 17:09 diabetes mellitus; Hypercholesterolemia; Hypertensive disorder; neuropathy; bp - PSHx: 17:09 Appendectomy; Bowel Retracement; section; Cholecystectomy; bp - Immunization history:: Adult Immunizations up to date. - Infectious Disease History:: Denies. - Social history:: Smoking status: unknown. Screenin:[address] [facility] ED Fall Risk Assessment (Adult) History of falling in the last 3 months, bp including since admission No falls in past 3 months (0 pts) Confusion or Disorientation No (0 pts) Intoxicated or Sedated No (0 pts) Impaired Gait No (0 pts) Mobility Assist Device Used No (0 pt) Altered Elimination No (0 pt) Score/Fall Risk Level 0 - 2 = Low Risk. Abuse screen: Denies threats or abuse. Denies injuries from another. Nutritional screening: No deficits noted. Tuberculosis screening: No symptoms or risk factors identified. 20:00 Exposure risk/Travel Screening: None identified. mt4 Assessment: 20:00 General: Appears in no apparent distress. comfortable, Behavior is cooperative, Reports mt4 fatigue for. Pain: Complains of pain in abdomen Pain currently is 6 out of 10 on a pain scale. Pain began gradually. Neuro: Level of Consciousness is awake, alert, obeys commands, Oriented to person, place, time, situation, Ob/Gyn Doctor are equal bilaterally Moves all extremities. Weakness Gait is Speech is normal, Facial symmetry appears normal. Cardiovascular: Capillary refill < 3 seconds. Respiratory: Airway is patent Respiratory effort is even, unlabored, Respiratory pattern is regular, symmetrical. GI: Abdomen is non-distended, Reports lower abdominal pain, nausea, vomiting. : Denies burning with urination. Musculoskeletal: Capillary refill < 3 seconds, Range of motion: intact in all extremities, Reports. Vital Signs: 17:08 BP 170 / 82; Pulse 90; Resp 18; Temp 98; Pulse Ox 100% on R/A; bp 19:21 BP 175 / 78; Pulse 84; Resp 17; Temp 97.6(T); Pulse Ox 99% on R/A; mt4 20:53 BP 152 / 82; Pulse 80; Resp 16; Temp 98.1(O); Pulse Ox 98% ; dd2 21:30 BP 150 / 66; Pulse 83; Resp 19; Pulse Ox 97% on R/A; Pain 6/10; mt4 21:30 Pain Scale: Adult mt4 [place] Coma Score: 20:00 Eye Response: spontaneous(4). Motor Response: obeys commands(6). Verbal Response: mt4 oriented(5). Total: 15. ED Course: 17:07 Patient arrived in ED. bp 17:09 Triage completed. bp 17:09 Arm band placed on. bp 17:11 Steven John, RN is Primary Nurse. bp 17:11 Patient has correct armband on for positive identification. bp 17:24 Cosme Stephen MD is Attending Physician. viktoria 17:50 Initial lab(s) drawn, by me, sent to lab. Inserted saline lock: 20 gauge in left jl7 antecubital area, using aseptic technique. Blood collected. Flushed with 10 mL NS. 17:55 CT Abd/Pelvis - Without Contrast In Process Unspecified. EDMS 18:13 Warm blanket given. Verbal reassurance given. am7 18:13 EKG done, by ED staff, reviewed by Cosme Stephen MD. am7 18:31 XRAY Chest (1 view) In Process Unspecified. EDMS 19:11 role handed off by Barron Carvajal RN jl7 19:12 Primary Nurse role handed off by Steven John RN jl7 19:19 Anastasia Mcclure, UBALDO is Primary Nurse. mt4 19:26 Arnie Escobar MD is Hospitalizing Provider. viktoria 20:00 Resting quietly. Awaiting bed assignment. mt4 20:00 Client placed on continuous cardiac and pulse oximetry monitoring. NIBP monitoring mt4 applied. Warm blanket given. Pillow given. Verbal reassurance given. Assisted with bedpan. Cleaned of incontinence. 20:00 Patient admitted, IV remains in place. Patient maintains SpO2 saturation greater than mt4 95% on room air. 20:53 Provided Education on: admission education. dd2 20:53 No provider procedures requiring assistance completed. dd2 Administered Medications: 17:37 Drug: NS 0.9% IV 1000 ml IV at 1000 ml once; to be given as a bolus over 60 minutes jl7 Route: IV; Rate: 1000 ml; Site: left antecubital; 18:37 Follow up: Response: No adverse reaction; IV Status: Completed infusion; IV Intake: jl7 1000ml 17:38 Drug: Ondansetron IVP 4 mg IVP once; over 2 minutes Route: IVP; Site: left antecubital; jl7 19:07 Follow up: Response: No adverse reaction jl7 17:38 Drug: Famotidine IVP 20 mg IVP once; dilute with 10 mL 0.9% NaCl; give over 2 minutes jl7 Route: IVP; Site: left antecubital; 19:07 Follow up: Response: No adverse reaction jl7 17:40 Drug: morphine IVP or IV 4 mg IVP once over 4 mins Route: IVP; Infused Over: 4 mins; 7 Site: left antecubital; 19:07 Follow up: Response: No adverse reaction [facility] 19:19 Drug: NS 0.9% IV 500 ml 500 ml IV at 1 bolus once; to be given as a bolus over 30 mt4 minutes Volume: 500 ml; Route: IV; Rate: 1 bolus; Site: left antecubital; 19:49 Follow up: IV Status: Completed infusion; IV Intake: 500ml dd2 Medication: 20:53 VIS not applicable for this client. dd2 Intake: 18:37 IV: 1000ml; Total: 1000ml. [facility] 19:49 IV: 500ml; Total: 1500ml. dd2 Outcome: 19:27 Decision to Hospitalize by Provider. viktoria 22:14 Patient left the ED. az4 Signatures: Dispatcher [employer] EDCosme Mauro MD MD cha Leal, Jahala RN RN jl7 Steven John RN RN bp Tath, Molinec, RN RN mt4 JANI SOLIS RN RN dd2 Lissette Chew 7
--- NOTE | 2024-04-18 19:28 | EDPHYS ---
Physician Documentation [facility] Name: Delmi Pool Age: 69 yrs Sex: Female : 1955 Arrival Date: 04/18/2024 Time: 17:00 Bed 8 Private MD: ED Physician Cosme Stephen HPI: 04/18 19:00 This 69 yrs old Female presents to ER via EMS with complaints of Nausea. viktoria Historical: - Allergies: 17:09 Sulfa (Sulfonamide Antibiotics); bp 17:09 Toradol; bp 17:09 tramadol; bp - PMHx: 17:09 diabetes mellitus; Hypercholesterolemia; Hypertensive disorder; neuropathy; bp - PSHx: 17:09 Appendectomy; Bowel Retracement; section; Cholecystectomy; bp - Immunization history:: Adult Immunizations up to date. - Infectious Disease History:: Denies. - Social history:: Smoking status: unknown. ROS: 19:24 Constitutional: Negative for fever, chills, and weight loss, Eyes: Negative for injury, viktoria pain, redness, and discharge, ENT: Negative for injury, pain, and discharge, Neck: Negative for injury, pain, and swelling, Cardiovascular: Negative for chest pain, palpitations, and edema, Respiratory: Negative for shortness of breath, cough, wheezing, and pleuritic chest pain, Back: Negative for injury and pain, : Negative for injury, bleeding, discharge, and swelling, MS/Extremity: Negative for injury and deformity, Skin: Negative for injury, rash, and discoloration, Neuro: Negative for headache, weakness, numbness, tingling, and seizure, Psych: Negative for depression, anxiety, suicide ideation, homicidal ideation, and hallucinations, Allergy/Immunology: Negative for hives, rash, and allergies, Endocrine: Negative for neck swelling, polydipsia, polyuria, polyphagia, and marked weight changes, Hematologic/Lymphatic: Negative for swollen nodes, abnormal bleeding, and unusual bruising, 19:24 Abdomen/GI: Positive for abdominal pain, nausea and vomiting, abdominal cramps, Exam: 19:24 Constitutional: This is a well developed, well nourished patient who is awake, alert, viktoria and in no acute distress. Head/Face: Normocephalic, atraumatic. Eyes: Pupils equal round and reactive to light, extra-ocular motions intact. Lids and lashes normal. Conjunctiva and sclera are non-icteric and not injected. Cornea within normal limits. Periorbital areas with no swelling, redness, or edema. ENT: Nares patent. No nasal discharge, no septal abnormalities noted. Tympanic membranes are normal and external auditory canals are clear. Oropharynx with no redness, swelling, or masses, exudates, or evidence of obstruction, uvula midline. Mucous membranes moist. Neck: Trachea midline, no thyromegaly or masses palpated, and no cervical lymphadenopathy. Supple, full range of motion without nuchal rigidity, or vertebral point tenderness. No Meningismus. Chest/axilla: Normal chest wall appearance and motion. Nontender with no deformity. No lesions are appreciated. Cardiovascular: Regular rate and rhythm with a normal S1 and S2. No gallops, murmurs, or rubs. Normal PMI, no JVD. No pulse deficits. Respiratory: Lungs have equal breath sounds bilaterally, clear to auscultation and percussion. No rales, rhonchi or wheezes noted. No increased work of breathing, no retractions or nasal flaring. Back: No spinal tenderness. No costovertebral tenderness. Full range of motion. Female : Normal external genitalia. Skin: Warm, dry with normal turgor. Normal color with no rashes, no lesions, and no evidence of cellulitis. MS/ Extremity: Pulses equal, no cyanosis. Neurovascular intact. Full, normal range of motion., bilateral aka Neuro: Awake and alert, GCS 15, oriented to person, place, time, and situation. Cranial nerves II-XII grossly intact. Motor strength 5/5 in all extremities. Sensory grossly intact. Cerebellar exam normal. Normal gait. Psych: Awake, alert, with orientation to person, place and time. Behavior, mood, and affect are within normal limits. 19:24 ECG was reviewed by the Attending Physician. 19:24 Abdomen/GI: Inspection: abdomen appears normal, Bowel sounds: normal, Palpation: mild abdominal tenderness, in all quadrants, Liver: no appreciated palpable abnormalities, Hernia: not appreciated, Vital Signs: 17:08 BP 170 / 82; Pulse 90; Resp 18; Temp 98; Pulse Ox 100% on R/A; bp 19:21 BP 175 / 78; Pulse 84; Resp 17; Temp 97.6(T); Pulse Ox 99% on R/A; mt4 20:53 BP 152 / 82; Pulse 80; Resp 16; Temp 98.1(O); Pulse Ox 98% ; dd2 21:30 BP 150 / 66; Pulse 83; Resp 19; Pulse Ox 97% on R/A; Pain 6/10; mt4 21:30 Pain Scale: Adult mt4 Mayte Coma Score: 20:00 Eye Response: spontaneous(4). Motor Response: obeys commands(6). Verbal Response: mt4 oriented(5). Total: 15. MDM: 17:24 Medical Screening Exam initiated viktoria 19:32 Differential diagnosis: Nonspecific abd pain, gastritis, pancreatitis, diverticulitis, vitkoria viral gastroenteritis, gastroenteritis. Data reviewed: vital signs, nurses notes, EMS record, lab test result(s), EKG, radiologic studies, CT scan, plain films. Consideration of Admission/Observation Patient was admitted/placed on observation. Escalation of care including admission/observation considered. I considered the following discharge prescriptions or medication management in the emergency department Medications were administered in the Emergency Department. See MAR. Test considered but Not performed: Ultrasound NO ABD USG. Care significantly affected by the following chronic conditions: Diabetes, Hypertension, TOBACCO ABUSE, HIGH CHLESTEROL. 19:33 Independent interpretation of the following test(s) in the Emergency Department EKG: viktoria See my EKG interpretation above. Historians other than the Patient: EMS: EMS WELL INFORMED. Counseling: I had a detailed discussion with the patient and/or guardian regarding the historical points, exam findings, and any diagnostic results supporting the discharge/admit diagnosis, lab results, radiology results, the need for further work-up and treatment in the hospital. 04/18 17:25 Order name: Basic Metabolic Panel; Complete Time: 18:56 [facility] 04/18 17:25 Order name: CBC with Diff; Complete Time: 18:50 [facility] 04/18 17:25 Order name: LFT's; Complete Time: 18:56 [facility] 04/18 17:25 Order name: Magnesium; Complete Time: 18:56 [facility] 04/18 17:25 Order name: NT PRO-BNP; Complete Time: 18:56 [facility] 04/18 17:25 Order name: PT-INR; Complete Time: 18:50 [facility] 04/18 17:25 Order name: Troponin HS; Complete Time: 18:56 [facility] 04/18 17:25 Order name: Lipase; Complete Time: 18:56 [facility] 04/18 17:25 Order name: Urinalysis w/ reflexes [facility] 04/18 21:56 Order name: Urinalysis w/ reflexes [facility] 04/18 17:25 Order name: XRAY Chest (1 view); Complete Time: 18:50 [facility] 04/18 17:25 Order name: CT Abd/Pelvis - Without Contrast; Complete Time: 18:50 [facility] 04/18 17:25 Order name: Cardiac monitoring; Complete Time: 17:49 [facility] 04/18 17:25 Order name: EKG - Nurse/Tech; Complete Time: 18:13 [facility] 04/18 17:25 Order name: IV Saline Lock; Complete Time: 17:49 [facility] 04/18 17:25 Order name: Labs collected and sent; Complete Time: 17:49 [facility] 04/18 17:25 Order name: O2 Per Protocol; Complete Time: 17:28 [facility] 04/18 17:25 Order name: O2 Sat Monitoring; Complete Time: 17:28 [facility] 04/18 19:36 Order name: Misc. Order: NEED UA; Complete Time: 20:52 [facility] EC:24 Rate is 76 beats/min. Rhythm is regular. QRS [place] is Normal. TN interval is normal. QRS viktoria interval is normal. QT interval is normal. No Q waves. T waves are Normal. No ST changes noted. Clinical impression: Normal ECG and No evidence of ischemia. Interpreted by me. Reviewed by me. Administered Medications: 17:37 Drug: NS 0.9% IV 1000 ml IV at 1000 ml once; to be given as a bolus over 60 minutes jl7 Route: IV; Rate: 1000 ml; Site: left antecubital; 18:37 Follow up: Response: No adverse reaction; IV Status: Completed infusion; IV Intake: jl7 1000ml 17:38 Drug: Ondansetron IVP 4 mg IVP once; over 2 minutes Route: IVP; Site: left antecubital; jl7 19:07 Follow up: Response: No adverse reaction jl7 17:38 Drug: Famotidine IVP 20 mg IVP once; dilute with 10 mL 0.9% NaCl; give over 2 minutes jl7 Route: IVP; Site: left antecubital; 19:07 Follow up: Response: No adverse reaction jl7 17:40 Drug: morphine IVP or IV 4 mg IVP once over 4 mins Route: IVP; Infused Over: 4 mins; jl7 Site: left antecubital; 19:07 Follow up: Response: No adverse reaction jl7 19:19 Drug: NS 0.9% IV 500 ml 500 ml IV at 1 bolus once; to be given as a bolus over 30 mt4 minutes Volume: 500 ml; Route: IV; Rate: 1 bolus; Site: left antecubital; 19:49 Follow up: IV Status: Completed infusion; IV Intake: 500ml dd2 Disposition Summary: 04/18/24 19:27 Hospitalization Ordered Notes: Hospitalization Status: Observation viktoria Provider: Arnie Escobar cha Location: Telemetry/MedSurg (observation) viktoria Condition: Stable viktoria Problem: new viktoria Symptoms: have improved viktoria Bed/Room Type: Standard viktoria Room Assignment: 223(04/18/24 20:48) vk Diagnosis - Vomiting viktoria - Dehydration viktoria - Abdominal pain, Generalized viktoria - Hypo-osmolality and hyponatremia viktoria - Tobacco abuse counseling viktoria - Tobacco use viktoria Forms: - Medication Reconciliation Form viktoria - SBAR form viktoria - Leadership Thank You Letter viktoria Signatures: Dispatcher [employer] EDMS Cosme Stephen MD MD cha Leal, Jahala, RN RN jl7 Steven John RN RN Claudia Duque Molinec, RN RN mt4 JANI SOLIS RN dd2 Corrections: (The following items were deleted from the chart) 17:26 17:26 BASIC METABOLIC PANEL+C.LAB.BRZ ordered. EDMS EDMS 17:26 17:26 CBC+H.LAB.BRZ ordered. EDMS EDMS 17:26 17:26 HEPATIC FUNCTION+C.LAB.BRZ ordered. EDMS EDMS 17:26 17:26 MAGNESIUM+C.LAB.BRZ ordered. EDMS EDMS 17:26 17:26 PROBNP+C.LAB.BRZ ordered. EDMS EDMS 17:26 17:26 PROTIME (+INR)+COAG.LAB.BRZ ordered. EDMS EDMS 17:26 17:26 Troponin High Sensitivity+C.LAB.BRZ ordered. EDMS EDMS 17:26 17:26 LIPASE+C.LAB.BRZ ordered. EDMS EDMS 17:26 17:26 Urinalysis+U.LAB.BRZ ordered. EDMS EDMS 17: 17: Chest Single View+RAD.RAD.BRZ ordered. EDMS EDMS 20:48 19:27 viktoria vk
[2024-04-18 19:50] LABS: Specific Gravity 1.008 (1.005-1.030); Sqamous Epithelial <5 /HPF (None Seen); Urine Bacteria <20 /HPF (<20); Urine Bilirubin NEGATIVE (Negative); Urine Blood Negative (Negative); Urine Clarity Extremely Turbid (Clear); Urine Color Light-Yellow (Yellow); Urine Culture Reflex Order NOT NEEDED; Urine Glucose NEGATIVE (Negative); Urine Ketones NEGATIVE (Negative); Urine Microscopic Reflex YN ORDER UMIC; Urine Nitrite NEGATIVE (Negative); Urine Protein TRACE (Negative); Urine RBC <5 /HPF (None Seen); Urine Urobilinogen Normal (Normal); Urine WBC <5 /HPF (<5)
[2024-04-18] MEDS ORDERED: ACETAMINOPHEN 325 MG TABLET PO PRN (21:52)
--- NOTE | 2024-04-18 22:01 | P.HP ---
Certification for Inpatient Patient admitted to: Observation With expected LOS: <2 Midnights Practitioner: I am a practitioner with admitting privileges, knowledge of patient current condition, hospital course, and medical plan of care. Services: Services provided to patient in accordance with Admission requirements found in Title 42 Section 412.3 of the Code of Federal Regulations Patient History Date of Service: 04/18/24 Reason for admission: abdominal pain, chronic hyponatremia History of Present Illness: 69-year-old woman with a past medical history significant for HTN, history of SBO, and chronic hyponatremia presented to the emergency room complaining of abdominal pain. The patient states that she has had several hospital visits for abdominal pain, but has not been able to schedule an GI outpatient appointment for this issue. She describes her abdominal pain is located mainly in the epigastric region, without radiation, and of an aching quality. She states she has vomited more than 5 times over the last 2 days. She denies vomiting blood. The patient states she has chronic hyponatremia, but is not on home salt tabs. Patient is a current smoker. She denies fever, cough, dyspnea, and urinary symptoms. Allergies ketorolac [From Toradol] Allergy (Verified 09/27/22 18:46) Itching/Hives/Rash Sulfa (Sulfonamide Antibiotics) Allergy (Verified 08/20/14 13:11) Itching/Hives/Rash tramadol Allergy (Verified 09/27/22 18:46) Shortness of breath Home Medications: Gabapentin 800 mg PO TID 06/10/23 Losartan Potassium 50 mg PO DAILY 06/10/23 Ondansetron [Zofran (Odt)*] 4 mg PO Q6H PRN #20 tab 03/23/24 Cefdinir [Cefdinir*] 300 mg PO BID #14 cap 04/16/24 Sodium Chloride Tab [Sodium Chloride*] 1 gm PO BID #60 tab 04/16/24 predniSONE [Deltasone] 20 mg PO BID #11 tab 04/16/24 - Past Medical/Surgical History Diabetic: No -: NIDDM2 -: SBO -: GERD -: Chronic pain -: hysterectomy -: -: bowel resection -: Gallbladder Psychosocial/ Personal History: Lives in her home with her Son and his - Family History Father -: Other (see notes) Notes: thought to have from cancer Mother -: Other (see notes) Notes: spinal stenosis Brother -: Heart disease, Diabetes Notes: stents. stenosis Sister -: Blood disorders Notes: form of leukemia - Social History Smoking Status: Current every day smoker Counseled patient to stop smoking for: less than 10 minutes Alcohol use: No CD- Drugs: No Caffeine use: Yes Review of Systems Gastrointestinal: Vomiting, Abdominal Pain, No Distention Physical Examination - Vital Signs Temperature: 98.0 F Blood Pressure: 168/94 Pulse: 93 Respirations: 20 Pulse Ox (%): 100 (room air) - Physical Exam General: Alert, Oriented x3 HEENT: Atraumatic, Normocephalic Neck: JVD not distended Respiratory: Normal air movement Cardiovascular: No edema, Regular rate/rhythm, No gallops, No rubs, No murmurs Gastrointestinal: Normal bowel sounds, Non-distended, Tenderness (epigastric region, no radiation) Musculoskeletal: No swelling, No erythema, No tenderness, No warmth Neurological: Normal strength at 5/5 x4 extr, Sensation intact - Studies Laboratory Data (last 24 hrs) 04/18/24 04/18/24 04/18/24 17:40 17:40 17:40 WBC 9.30 Hgb 15.4 H Hct 45.1 H Plt Count 211 PT 11.4 INR 1.02 Sodium 128 L Potassium 3.6 BUN 4 L Creatinine 0.53 L Glucose 144 H Magnesium 2.0 Total Bilirubin 0.7 AST 15 ALT 16 Alkaline Phosphatase 84 Lipase 12 L Assessment and Plan - Problems (Diagnosis) (1) Chronic hyponatremia Current Visit: Yes Status: Acute (2) Abdominal pain Current Visit: No Status: Acute (3) HTN (hypertension) Current Visit: No Status: Chronic - Plan Abdominal pain: Admit to observation Clear liquid diet IVF ordered Morphine ordered Zofran ordered Hypertension: Home home medication Chronic hyponatremia: Na 128 currently Gentle hydration Repeat BMP with morning labs - Advance Directives Does patient have a Living Will: No Does patient have a Durable POA for Healthcare: No
[2024-04-18] MEDS ORDERED: SODIUM CHLORIDE 0.9% 10ML INJ IV PRN (22:05)
[2024-04-18] MEDS: MORPHINE 2 MG/ML SYR IV PRN (23:45)
[2024-04-18] MEDS: PANTOPRAZOLE 40 MG INJ IVP SCH (23:45)
[2024-04-18] MEDS: ONDANSETRON 4 MG/2 ML VIAL IV PRN (23:45)
[2024-04-18] MEDS: NA CHLORIDE 0.9% 1,000 ML IV SCH (23:47)
[2024-04-19] MEDS: METHYLPREDNISOLONE 125 MG INJ IV SCH (00:02)
[2024-04-19 00:34] VITALS: BMI 23.4
[2024-04-19] MEDS ORDERED: SODIUM CHLORIDE 1 GM TAB PO SCH (04:00)
[2024-04-19 04:45] LABS: Renal Epithelial <5 /HPF (None Seen); Specific Gravity 1.006 (1.005-1.030); Sqamous Epithelial <5 /HPF (None Seen); Urine Bacteria None Seen /HPF (<20); Urine Bilirubin NEGATIVE (Negative); Urine Blood Negative (Negative); Urine Clarity Turbid (Clear); Urine Color Colorless (Yellow); Urine Culture Reflex Order NOT NEEDED; Urine Glucose NEGATIVE (Negative); Urine Ketones NEGATIVE (Negative); Urine Microscopic Reflex YN ORDER UMIC; Urine Mucus Slight /HPF (None Seen); Urine Nitrite NEGATIVE (Negative); Urine Protein NEGATIVE (Negative); Urine RBC None Seen /HPF (None Seen); Urine Urobilinogen Normal (Normal); Urine WBC <5 /HPF (<5); Urine pH 7.5 (5.0-7.0)
[2024-04-19] MEDS: METOCLOPRAMIDE 10 MG/2mL INJ IV PRN (04:52)
[2024-04-19] MEDS: MORPHINE 2 MG/ML SYR IV PRN (04:53)
[2024-04-19 05:35] LABS: Anion Gap 9.9 mEq/L (5.0-15.0); Potassium 3.9 mEq/L (3.5-5.1)
[2024-04-19] MEDS: SODIUM CHLORIDE 1 GM TAB PO SCH (08:00)
[2024-04-19] MEDS: LOSARTAN POTASSIUM 50 MG TABLET PO SCH (08:42)
[2024-04-19] MEDS: ENOXAPARIN 40 MG/0.4 ML SQ SCH (08:43)
--- NOTE | 2024-04-19 18:34 | P.PN ---
Subjective Date of Service: 04/19/24 Chief Complaint: abdominal pain, chronic hyponatremia Patient reports persistent abdominal pain and nausea. She is currently on clear liquid diet. She reports increased pain with meals. Physical Examination - Vital Signs Temperature: 97.9 F Blood Pressure: 135/65 Pulse: 67 Respirations: 20 Pulse Ox (%): 96 - Studies Laboratory Data (last 24 hrs) 04/18/24 17:40 Sodium 128 L Potassium 3.6 BUN 4 L Creatinine 0.53 L Glucose 144 H Magnesium 2.0 Total Bilirubin 0.7 AST 15 ALT 16 Alkaline Phosphatase 84 Lipase 12 L Assessment And Plan - Plan Physical examination General: Alert and oriented x3, NAD, HEENT: Conjunctiva not pale, anicteric sclera Neck: Supple, no elevated JVD Heart: Heart sounds 1 and 2 normal, regular rhythm, normal rate, no pedal edema Lungs: Clear to auscultation bilaterally, adequate breath sounds bilaterally, no rhonchi or crackles. Abdomen: Soft, nondistended, epigastric tenderness, normal bowel sounds. Extremities: No tenderness, no deformity Skin: Normal skin turgor, no rash, no nodules or ulcers. Neuro: No focal motor deficit. Normal speech. Psychiatry: Normal mood, no agitation. Diagnosis Intractable nausea and vomiting GERD History of peptic ulcer disease Chronic hyponatremia Essential hypertension Plan Intractable nausea and vomiting History of peptic ulcer disease GERD Continue clear liquid diet IV fluid. GI Dr. Vargas consulted to evaluate. Dr. Vargas is planning EGD tomorrow 1203 N.p[address]. at midnight IV analgesics as needed IV antiemetics as needed. Chronic hyponatremia Sodium level improved with IV NS. Continue IV NS and monitor BMP. Hypertension: Patient is currently normotensive. Continue losartan. DVT prophylaxis: SCD. Lovenox is on hold in anticipation for EGD. Advanced directive: Full code
[2024-04-19 20:21] LABS: Phosphorus 2.2 mg/dL (2.5-4.9)
[2024-04-19 20:23] LABS: Magnesium 1.7 mg/dL (1.6-2.4)
[2024-04-19] MEDS: HYDROMORPHONE HCL 1 MG/ML INJ IV ONE (20:41)
[2024-04-19] MEDS: SODIUM CHLORIDE 1 GM TAB PO ONE (22:08)
[2024-04-20 04:56] LABS: Absolute Lymphocytes (CBC) 2.5 K/uL (0.7-4.9); Absolute Monocytes 0.6 K/uL (0.1-1.3); Absolute Neutrophil 5.4 K/uL (1.8-8.0); Basophils % 0.5 % (0-1.3); Eosinophils % 0.1 % (0-4.4); Hematocrit 37.1 % (36.0-45.0); Hemoglobin 12.2 g/dL (12.0-15.0); Lymphocytes % 29.7 % (15.3-44.8); MCV 96.9 fL (80-100); MPV 7.8 fL (7.6-11.3); Neutrophils % 62.7 % (41.7-73.7); Platelets 164 thou/uL (152-406); RBC Red Blood Cell Count 3.83 M/uL (3.86-4.86); Red Cell Distribution Width 14.1 % (12.1-15.2)
[2024-04-20 05:05] LABS: Anion Gap 9.4 mEq/L (5.0-15.0); Potassium 3.4 mEq/L (3.5-5.1)
[2024-04-20] MEDS: KCL 20 MEQ/100 mL IVPB 20 MEQ/100 ML BAG IV SCH (06:05)
[2024-04-20] MEDS ORDERED: propofoL 200 MG/20 ML VIAL IV ONE (09:28)
[2024-04-20] MEDS ORDERED: LIDOCAINE 1% MPF 5 ML VIAL ONE (09:28)
--- NOTE | 2024-04-20 10:01 | P.PN ---
Date of Service: 04/20/24 Subjective: reports abdominal pain and back pain seen s/p EGD reports nausea , not wanting anything PO due to nausea and pain pain unchanged ROS: 10 point ROS as noted above, otherwise negative Physical Exam: GEN: Alert, oriented, NAD HEENT: Normal conjunctiva, sclera anicteric, CV: Regular rate and rhythm, no edema Pulm: Nonlabored respirations on room air, clear bilaterally ABD: soft, epigastric tenderness, nondistended Neuro: Normal speech, normal affect Problem List: Suspected Candidiasis esophagitis Gastritis GERD Hx Peptic Ulcer Disease Acute on Chronic Hyponatremia Hypertension Suspected Candidiasis esophagitis Gastritis GERD Hx Peptic Ulcer Disease presents to ED with abdominal pain associated with intractable nausea/vomiting. Reports > 5 episodes of emesis within last 2 days. s/p EGD (04/20): noted moderate suspected Candidiasis esophagitis present in the esophagus. Also noted moderate gastritis Nausea/vomiting likely related to infectious esophagitis/gastritis Start diflucan 200 mg. Will need to complete 10 days per GI to treat presumed Candidiasis esophagitis continue IV protonix BID Dr. Vargas, GI is following Pain control, antiemetics PRN reglan Acute on Chronic Hyponatremia continue salt tabs. Doesn't take salt tabs at home. continue IV fluids Hypertension resume home losartan VTE: SCD Code: Full Dispo: Home Time Spent Managing Pts Care (In Minutes): 55
[2024-04-20] MEDS: EPINEPHRINE 1 MG/ML VIAL ONE (10:15)
[2024-04-20] MEDS: SCOPOLAMINE HYDROBROMIDE PATCH TD ONE (10:18)
[2024-04-20] MEDS: FLUCONAZOLE 100 MG TAB PO SCH (11:55)
[2024-04-20] MEDS: HYDRALAZINE HCL 20 MG/ML VIAL IV PRN (11:55)
[2024-04-20] MEDS: HYDROMORPHONE HCL 1 MG/ML INJ IV PRN (14:01)
--- NOTE | 2024-04-21 10:02 | P.PN ---
Date of Service: 04/21/24 Subjective: Feeling better today tolerating some liquids without issues denies trouble swallowing pain improving afebrile ROS: 10 point ROS as noted above, otherwise negative Physical Exam: GEN: Alert, oriented, NAD HEENT: Normal conjunctiva, sclera anicteric CV: Regular rate and rhythm, no edema Pulm: Nonlabored respirations on room air, clear bilaterally ABD: soft, epigastric tenderness, nondistended Neuro: Normal speech, normal affect Problem List: Suspected Candidiasis esophagitis Gastritis GERD Hx Peptic Ulcer Disease Acute on Chronic Hyponatremia Hypertension Suspected Candidiasis esophagitis Gastritis GERD Hx Peptic Ulcer Disease presents to ED with abdominal pain associated with intractable nausea/vomiting. Reports > 5 episodes of emesis within last 2 days. s/p EGD (04/20): noted moderate suspected Candidiasis esophagitis present in the esophagus. Also noted moderate gastritis Nausea/vomiting likely related to infectious esophagitis/gastritis continue diflucan (04/20-04/29) Will need to complete 10 days per GI to treat presumed Candidiasis esophagitis continue IV protonix BID Dr. Vargas, GI is following Pain control, antiemetics PRN reglan Acute on Chronic Hyponatremia continue salt tabs. Doesn't take salt tabs at home. continue IV fluids Hypertension resume home losartan VTE: SCD Code: Full Dispo: Home, ~1-2 days Tolerating diet without issues, pain control Time Spent Managing Pts Care (In Minutes): 55
[2024-04-21 12:10] VITALS: O2SAT 93
[2024-04-21 17:50] VITALS: BP 141/62; TEMP 98.4
--- NOTE | 2024-04-22 06:33 | P.DS ---
Admission Date: 04/19/24 Discharge Date: 04/21/24 Disposition: ROUTINE DISCHARGE Discharge Condition: GOOD Reason for Admission: abdominal pain, chronic hyponatremia Consultations: GI - Dr. Vargas Brief History of Present Illness: 69yo F, PMH: HTN, history of SBO, and chronic hyponatremia Patient presented to the emergency room complaining of abdominal pain. The patient states that she has had several hospital visits for abdominal pain, but has not been able to schedule an GI outpatient appointment for this issue. She describes her abdominal pain is located mainly in the epigastric region, without radiation, and of an aching quality. She states she has vomited more than 5 times over the last 2 days. She denies vomiting blood. The patient states she has chronic hyponatremia, but is not on home salt tabs. Patient is a current smoker. She denies fever, cough, dyspnea, and urinary symptoms. Hospital Course: Problem List: Suspected Candidiasis esophagitis Gastritis GERD Hx Peptic Ulcer Disease Acute on Chronic Hyponatremia Hypertension Physician discharge instructions: Patient presented with abdominal pain associated with nausea/vomiting secondary to candidiasis esophagitis / gastritis. Patient was evaluated by Dr. Vargas, GI who recommended EGD to further evaluate. EGD done 04/20 with findings consistent with Candidiasis esophagitis and moderate gastritis. She was started on Diflucan and had improvement of her symptoms. Patient will need to complete 10 days total of diflucan to treat presumed Candidiasis esophagitis. (end date: ~04/29) Patient was feeling better, abdominal pain improving, nausea/vomiting resolved, tolerating diet without issues and deemed stable for discharge. Continue soft food diet for next 3-5 days and slowly ease back into regular diet. Avoid fatty/greasy foods. Recommend following up with GI in 2 weeks for further management. Medications: Diflucan for 8 more days (start 12/ morning) (end date: 04/29) Pantoprazole 40 mg daily Follow up: PCP 3-5 days GI in 2 weeks Please call to schedule / confirm appointments Physical Exam: GEN: Alert, oriented, NAD HEENT: Normal conjunctiva, sclera anicteric CV: Regular rate and rhythm, no edema Pulm: Nonlabored respirations on room air, clear bilaterally ABD: soft, epigastric tenderness, nondistended Neuro: Normal speech, normal affect Vital Signs/Physical Exam: Temp Pulse Resp BP Pulse Ox 98.4 F 74 16 141/62 H 96 04/21/24 16:00 04/21/24 16:00 04/21/24 16:00 04/21/24 16:00 04/21/24 16:00 Laboratory Data at Discharge: WBC 8.60 thou/uL (4.3-10.9) 04/20/24 04:18 Hgb 12.2 g/dL (12.0-15.0) 04/20/24 04:18 Hct 37.1 % (36.0-45.0) 04/20/24 04:18 Plt Count 164 thou/uL (152-406) 04/20/24 04:18 PT 11.4 SECONDS (9.4-12.5) 04/18/24 17:40 INR 1.02 04/18/24 17:40 Sodium 135 mEq/L (136-145) L 04/21/24 04:03 Potassium 4.0 mEq/L (3.5-5.1) D 04/21/24 04:03 BUN 4 mg/dL (7-18) L 04/21/24 04:03 Creatinine 0.42 mg/dL (0.55-1.02) L 04/21/24 04:03 Glucose 111 mg/dL (74-106) H 04/21/24 04:03 Phosphorus 2.2 mg/dL (2.5-4.9) L 04/19/24 19:40 Magnesium 1.7 mg/dL (1.6-2.4) 04/19/24 19:40 Total Bilirubin 0.7 mg/dL (0.2-1.0) 04/18/24 17:40 AST 15 U/L (15-37) 04/18/24 17:40 ALT 16 U/L (13-56) 04/18/24 17:40 Alkaline Phosphatase 84 U/L (45-117) 04/18/24 17:40 Lipase 12 U/L (13-75) L 04/18/24 17:40 Home Medications: Gabapentin 800 mg PO TID 06/10/23 Losartan Potassium 50 mg PO DAILY AFTER SUPPER 06/10/23 Ondansetron [Zofran (Odt)*] 4 mg PO Q6H PRN #20 tab 03/23/24 Sodium Chloride Tab [Sodium Chloride*] 1 gm PO BID #60 tab 04/16/24 Fluconazole 200 mg PO DAILY 8 Days #8 tab 04/21/24 Pantoprazole [Protonix Tab*] 40 mg PO DAILY 30 Days #30 tab 04/21/24 New Medications: Fluconazole 200 mg PO DAILY 8 Days #8 tab Pantoprazole [Protonix Tab*] 40 mg PO DAILY 30 Days #30 tab Physician Discharge Instructions: Physician discharge instructions: Patient presented with abdominal pain associated with nausea/vomiting secondary to candidiasis esophagitis / gastritis. Patient was evaluated by Dr. Vargas GI who recommended EGD to further evaluate. EGD done 04/20 with findings consistent with Candidiasis esophagitis an d moderate gastritis. She was started on Diflucan and had improvement of her symptoms. Patient will need to complete 10 days total of diflucan to treat presumed Candidiasis esophagitis. (end date: ~04/29) Patient was feeling better, abdominal pain improving, nausea/vomiting resolved, tolerating diet without issues and deemed stable for discharge. Continue soft food diet for next 3-5 days and slowly ease back into regular diet. Avoid fatty/greasy foods. Recommend following up with GI in 2 weeks for further management. Medications: Diflucan for 8 more days (start 12/5 morning) (end date: 04/29) Pantoprazole 40 mg daily Follow up: PCP 3-5 days GI in 2 weeks Please call to schedule / confirm appointments Followup: LEX BURNETT [Primary Care Provider] - Time spent managing pt's care (in minutes): 45
== END 2024-04-21 17:52 | disposition home or self-care (01) | DRG 369 ==
LOC: ER 17:00 → 2ND 21:52 → OBSVTOIN 04-19 17:55
PROVIDERS: ADMIT Internal Medicine; ATTEND Hospitalist
PROC: 0DB68ZX Excision of Stomach, Via Natural or Artificial Opening Endoscopic, Diagnostic (ICD-10-PCS; 2024-04-20)
PROC: 0DB58ZX Excision of Esophagus, Via Natural or Artificial Opening Endoscopic, Diagnostic (ICD-10-PCS; principal; 2024-04-20 10:00)
DX: B37.81 Candidal esophagitis (principal); E87.1 Hypo-osmolality and hyponatremia; K29.70 Gastritis, unspecified, without bleeding; E78.00 Pure hypercholesterolemia, unspecified; E11.40 Type 2 diabetes mellitus with diabetic neuropathy, unspecified; I10 Essential (primary) hypertension; E86.0 Dehydration; K21.9 Gastro-esophageal reflux disease without esophagitis; K27.9 Peptic ulcer, site unspecified, unspecified as acute or chronic, without hemorrhage or perforation; F17.200 Nicotine dependence, unspecified, uncomplicated; Z71.6 Tobacco abuse counseling; Z88.5 Allergy status to narcotic agent; Z88.2 Allergy status to sulfonamides; Z79.52 Long term (current) use of systemic steroids; Z90.49 Acquired absence of other specified parts of digestive tract; Z79.899 Other long term (current) drug therapy; Z90.710 Acquired absence of both cervix and uterus
CPT/HCPCS: 36415; 71045; 74176; 80048; 80076; 81001; 83690; 83735; 83880; 84100; 84484; 85025; 85610; 88305; 88312; 88313; 94760; 96361; 96374; 96375; 97161; 99284; G0378; J0171; J0360; J1171; J1650; J2003; J2270; J2405; J2470; J2704; J2765; J2919; J3480; J7030; J7040

== ENCOUNTER 2024-07-20 22:11 | Inpatient (IN) | payer OTHER ==
--- OUTSIDE RECORDS SUMMARY | 2024-07-20 22:20 | XMS REPORT | Continuity of Care Document ---
Author Name Unknown Address [address] [facility] [address] [place] [address] [facility] thconnect Address [address] [facility] [address] [place] [address] Care Team Providers Care Food Selector Name Role Phone Pcp, Patient Does Not Have A Primary Care Physic juan Doctor Unassigned, [place] Attending Clinician U Maegan Valdez MD Attending Clinician [phone] MAEGAN HEAD Attending Clinician Unavailabl e AMBREEN_FARHANA Attending Clinician Unavailable AMBREEN_SUYAPA Admitting Clinician Unavailable Payers Payer Name Policy Type Policy Number Effective Date Expirati on Date Source [facility] (MEDICARE REPLACEMENT HMO) [id number] 2022 00:00:00 Allergies, Adverse Reactions, Alerts Allergy Name Allergy Type Status Severity Reaction(s) Onset Date Inactive Date Treating Clinician Comments Source Sulfa (Sulfona mide Antibiot ics) Propensi ty to adverse reaction to drug Inactiv e 07-21 00:00: 00 Jaden Ponce NO KNOWN ALLERGIE S Drug Class Active [facility] Social History Social Habit Start Date Stop Date Quantity Comments Source Exposure to SARS-CoV-2 (event) 2022-09-27 00:00:00 2022-10-07 14:36:00 Not sure [facility] Sex Assigned At 1955 00:00:00 1955 00:00:00 [facility] Smoking Status Start Date Stop Date Source Tobacco smoking consumption unknown [facility] Medications Ordered Medication Name Filled Medication [...] NOSTRIL TWICE DAILY. 08-03 00:00: 00 Yes [id number] Jaden Ponce INHALE 1 PUFF TWICE DAILY. 08-03 00:00: 00 Yes [id number] 5 Jaden Ponce TAKE 1 TABLET BY MOUTH DAILY 08-03 00:00: 00 Yes 10 Jaden Ponce TAKE 1 TABLET BY MOUTH 4 TIMES DAILY. 08-03 00:00: 00 Yes 800 Jaden Ponce TAKE 1 TABLET BY MOUTH DAILY 08-03 00:00: 00 Yes 50 Jaden Ponce INHALE 2 PUFFS BY MOUTH EVERY 4 TO 6 HOURS NEEDED. 08-03 00:00: 00 Yes [id number] Jaden Ponce 1 CAP EVERY 8 HOURS NEEDED FOR COUGH 08-03 00:00: 00 09-30 00:00 :00 No 200 Jaden Ponce TAKE 2 TABLETS ON DAY 1 THEN TAKE 1 TABLET A DAY FOR 4 DAYS. 08-03 00:00: 00 09-30 00:00 :00 No 250 Jaden Ponce TAKE 5 ML EVERY 6 HOURS NEEDED FOR COUGH 08-03 00:00: 00 09-30 00:00 :00 No [id number] Jaden Ponce TAKE 1 TAB 3 TIMES [...] 06-19 00:00: 00 09-30 00:00 :00 No [id number] Jaden Ponce losartan 50 mg tablet 06-18 [...] 06-18 00:00: 00 09-30 00:00 :00 No [id number] Jaden Ponce AMITRIPTYLI NE HYDROCHLORI DE 50 [...] 2022-05 00:00: 00 09-30 00:00 :00 No [id number] Jaden Ponce PANTOPRAZOL E SOD DR 40 MG 2022-05 00:00: 00 Yes Jaden Ponce LOSARTAN POTASSIUM 50 MG 2022-05 00:00: 00 Yes Jaden Ponce 1 CAP EVERY 8 HOURS NEEDED FOR COUGH 2022-05 0 00:00: 00 09-30 00:00 :00 No 200 Jaden Ponce INHALE 1 PUFF TWICE DAILY. 2022-05 0 00:00: 00 09-30 00:00 :00 No [id number] 5 Jaden Ponce TAKE 5 ML EVERY 4 TO 6 HOURS NEEDED FOR COUGH. 2022-05 0- 00:00: 00 09-30 00:00 :00 No [id number] Jaden Ponce TAKE 2 TABS DAILY THE [...] TRELEGY ELLIPTA 200-62.5-25 01-15 00:00: 00 Yes [id number] Jaden Ponce TAKE 2 TABS DAILY THE FIRST 5 DAYS,THEN 1 TAB DAILY THE LAST 5 DAYS 01-15 00:00: 00 09-30 00:00 :00 No 20 Jaden Ponce USE 1 SPRAY IN EACH NOSTRIL TWICE DAILY. 01-15 00:00: 00 09-30 00:00 :00 No [id number] Jaden Ponce TAKE 1 TABLET TWICE DAILY WITH FOOD. 01-15 00:00: 00 09-30 00:00 :00 No [id number] Jaden Ponce INSTILL 2 DROPS INTO BOTH EYES ONCE DAILY. 01-15 00:00: 00 09-30 00:00 :00 No 2 Jaden Ponce TAKE 5 ML EVERY 4 TO 6 HOURS NEEDED FOR COUGH. 01-15 00:00: 00 09-30 00:00 :00 No [id number] Jaden Ponce TAKE 1 TABLET BY MOUTH [...] 12-19 00:00: 00 09-30 00:00 :00 No [id number] Jaden Ponce INHALE 2 PUFFS EVERY 4 TO 6 HOURS NEEDED. 12-19 00:00: 00 09-30 00:00 :00 No [id number] Jaden Ponce TAKE 1 TABLET BY MOUTH [...] 10-30 00:00: 00 09-30 00:00 :00 No [id number] Jaden Ponce TAKE 1 TABLET BY MOUTH [...] 10-07 21:45: 00 10-07 20:33 :00 No [id number] 40mg [facility] acute hospital TRAMADOL HCL 50 MG 10-07 00:00: 00 Yes Jaden Ponce traMADoL 50 mg tablet 10-07 00:00: 00 10-15 04:59 :00 No [id number] 50mg Take 1 tablet by mouth every 6 (six) hours as needed for Pain (scale 4-6) for up to 7 days. Indication s: acute pain [facility] acute hospital TAKE 1 TABLET BY MOUTH EVERY DAY 10-01 00:00: 00 Yes Jaden Ponce HYDROCODONE -ACETAMIN 5-325 MG 10-01 00:00: 00 Yes Jaden Ponce amLODIPine 5 mg tablet 10-01 00:00: 00 Yes 5mg Take 1 tablet by mouth in the morning. General acute hospital NEOMYCIN-PO LYMYXIN-HC EAR SOLN 08-21 00:00: 00 [...] 08-21 00:00: 00 09-30 00:00 :00 No [id number] Jaden Ponce INSTILL 3 DROPS IN BOTH EARS 3-4 TIMES DAILY. 08-21 00:00: 00 09-30 00:00 :00 No Jaden Ponce INHALE 2 PUFFS TWICE DAILY. 08-21 00:00: 00 09-30 00:00 :00 No [id number] Jaden Ponce TAKE 1 TABLET BY MOUTH AT BEDTIME 08-21 00:00: 00 09-30 00:00 :00 No 10 Jadenluna Ponce INHALE 2 PUFFS EVERY 4 TO 6 HOURS NEEDED. 08-21 00:00: 09-30 00:00 :00 No [id number] Jaden Ponce pantoprazol e 40 mg EC tablet 08-20 00:00: 00 Yes Landy corrigan [facility] PREDNISONE 20 MG 08-15 00:00: 00 Yes 20 Jaden Serafin Ponce ALBUTEROL HFA 90 MCG INHALER 08-15 00:00: 00 Yes 90 Jaden Ponce INHALE 2 PUFFS EVERY 4 TO 6 HOURS NEEDED. 08-15 00:00: 00 09-30 00:00 :00 No [id number] Jaden Ponce TAKE 5 ML EVERY 4 TO 6 HOURS NEEDED FOR COUGH. 08-15 00:00: 00 09-30 00:00 :00 No [id number] Jaden Serafin Ponce 1 CAP EVERY 8 HOURS NEEDED FOR COUGH 08-15 00:00: 00 09-30 00:00 :00 No 200 Jaden Serafin Ponce INHALE 2 PUFFS TWICE DAILY. 08-15 00:00: 00 09-30 00:00 :00 No [id number] Jaden Serafni Ponce TAKE 1 TABLET BY MOUTH AT [...] - 00:00: 00 09-30 00:00 :00 No [id number] Jaden Ponce TAKE 1 TABLET BY MOUTH [...] 2021-05 00:00: 00 09-30 00:00 :00 No [id number] Jaden Ponce TAKE 1 TABLET BY MOUTH EVERY DAY FOR BACK PAIN 2021-05 00:00: 00 Yes Jaden Ponce METHYLPREDN ISOLONE 4 MG DOSEPK 2021-05 2- 00:00: 00 Yes Jaden Ponce PREDNISONE 20 MG 2021-05- 00:00: 00 Yes Jaden Ponce AZITHROMYCI N 250 MG 2021-05 00:00: 00 Yes Jaden Ponce INHALE 2 PUFFS TWICE DAILY. 2021-05- 00:00: 00 09-30 00:00 :00 No [id number] Jaden Ponce Dose Unknown 2021-05 2- 00:00: 00 Yes 20 Jaden Ponce PREGABALIN 300 MG CAPSULE</Te xt> <Code> <Value>0022 [id number]</Va lue> <CodingSyst em>NDC</Cod ingSystem> </Code> 2021-05 2- 00:00: 00 Yes 300 Jaden Ponce Dose Unknown 2021-05 2- 00:00: 00 Yes Jaden Ponce Dose Unknown 2021-05 2- 00:00: 00 Yes Jaden Ponce Dose Unknown 2021-05 2- 00:00: 00 Yes Jaden Ponce Dose Unknown 2021-05 2- 00:00: 00 Yes Jaden Ponce PROAIR HFA 90 MCG INHALER</Te xt> <Code> <Value>2169 [id number]</Va lue> <CodingSyst em>NDC</Cod ingSystem> </Code> 2021-05 2- 00:00: 00 Yes Jaden Ponce Dose Unknown 2021-05 2- 00:00: 00 Yes Jaden Ponce AMOX-CLAV 875-125 MG TABLET</Nicolás t> <Code> <Value>0009 [id number]</Va lue> <CodingSyst em>NDC</Cod ingSystem> </Code&gt 2021-05 2- 00:00: 00 Yes Jaden Ponce HYDROCHLORO THIAZIDE 25 MG TAB</Text> <Code> <Value>0017 [id number]</Va lue> <CodingSyst em>NDC</Cod ingSystem> </Code& 2021-05 2- 00:00: 00 Yes 25 Jaden Ponce Dose Unknown 2021-05 2- 00:00: 00 Yes Jaden Ponce PREGABALIN 150 MG CAPSULE</Te xt> <Code> <Value>0022 [id number]</Va lue> <CodingSyst em>NDC</Cod ingSystem> </Code> 2021-05 2- [...] PREGABALIN 300 MG CAPSULE</Te xt> <Code> <Value>0022 [id number]</Va lue> <CodingSyst em>NDC</Cod ingSystem> </Code> 2021-05 00:00: 00 No 300 Dose Unknown 2021-05 00:00: 00 No Dose Unknown 2021-05 00:00: 00 No Dose Unknown 2021-05 00:00: 00 No Dose Unknown 2021-05 00:00: 00 No INHALE 1 PUFF TWICE DAILY. 2021-05 00:00: 00 No [id number] 5 INHALE 2 PUFFS EVERY 4 TO 6 HOURS NEEDED. 2021-05 00:00: 00 No [id number] PROAIR HFA 90 MCG INHALER</Te xt> <Code> <Value>2169 [id number]</Va lue> <CodingSyst em>NDC</Cod ingSystem> </Code> 2021-05 00:00: 00 No Dose Unknown 2021-05 00:00: 00 No AMOX-CLAV 875-125 MG TABLET</Nicolás t> <Code> <Value>0009 [id number]</Va lue> <CodingSyst em>NDC</Cod ingSystem> </Code&gt 2021-05 00:00: 00 No HYDROCHLORO THIAZIDE 25 MG TAB</Text> <Code> <Value>0017 [id number]</Va lue> <CodingSyst em>NDC</Cod ingSystem> </Code& 2021-05 00:00: 00 No 25 TAKE 1 TABLET AT BEDTIME. 2021-05 00:00: 00 No 20 Dose Unknown 2021-05 00:00: 00 No PREGABALIN 150 MG CAPSULE</Te xt> <Code> <Value>0022 [id number]</Va lue> <CodingSyst em>NDC</Cod ingSystem> </Code> 2021-05 00:00: 00 No 150 TAKE 5 ML DAILY AT BEDTIME. 2021-05 2 00:00: 00 No [id number] TAKE 1 TABLET DAILY. 2021-05 00:00: 00 [...] 2021-05 00:00: 00 09-30 00:00 :00 No [id number] 5 Jaden Ponce INHALE 2 PUFFS EVERY 4 TO 6 HOURS NEEDED. 2021-05 00:00: 00 09-30 00:00 :00 No [id number] Jaden Ponce TAKE 1 TABLET AT BEDTIME. 2021-05 00:00: 00 09-30 00:00 :00 No 20 Jaden Ponce TAKE 5 ML DAILY AT BEDTIME. 2021-05 00:00: 00 09-30 00:00 :00 No [id number] Jaden Ponce TAKE 1 TABLET DAILY. 2021-05 00:00: 00 09-30 00:00 :00 No 160 Jaden Ponce TAKE 1 TABLET 4 TIMES DAILY. 2021-05 00:00: 00 09-30 00:00 :00 No 800 Jaden Ponce INHALE 2 PUFFS TWICE DAILY. 2021-05 00:00: 00 09-30 00:00 :00 No [id number] Jaden Serafin Ponce TRELEGY ELLIPTA 200-62.5-25 2021-05 1-08 00:00: 00 Yes Jaden Ponce AZITHROMYCI N 250 MG 2021-05 0-27 00:00: 00 Yes 250 Jadenluna Ponce TRELEGY ELLIPTA 200-62.5-25 2022-1 0-27 00:00: 00 Yes [id number] Jaden Ponce ATORVASTATI N 20 MG 2021-1 [...] 01-19 00:00: 00 Yes 1mcg/do se Jaden Pnoce gabapentin 600 mg tablet 01-19 00:00: 00 [...] Systolic blood pressure 2022-10-07 20:05:00 133 mm[Hg] [facility] Diastolic blood pressure 2022-10-07 20:05:00 70 mm[Hg] [facility] Heart rate 2022-10-07 20:05:00 96 /min [facility] Body height 2022-10-07 20:05:00 152.4 cm [facility] Body weight 2022-10-07 20:05:00 69.854 kg [facility] BMI 2022-10-07 20:05:00 30.08 kg/m2 [facility] BP Systolic 2024-02-25 10:57:00 133 mm[Hg] Step hen F Kris BP Diastolic 2024-02-25 10:57:00 78 mm[Hg] Manny phen F Kris Weight Measured 2024-02-25 10:57:00 129.80 pounds Jaden F Kris Height Measured 2024-02-25 10:57:00 60.00 inches Jaden F Kris Body Temperature 2024-02-25 10:57:00 98.10 degrees Jaden F Kris Heart Rate 2024-02-25 10:57:00 81.00 /min Kinga en F Rkis Respiratory Rate 2024-02-25 10:57:00 17.00 /min Jaden [...] 2023-06-17 17:30:00 75 mm[Hg] Manny phen F Kirs Weight Measured 2023-06-17 17:30:00 134.20 pounds Jaden [...] EXTERNAL PROVIDER RECORDS 2022-10-21 05:01:00 Doctor Unassigned, [place] [facility] RADIOLOGY DOCUMENTATION 2022-10-11 05:01:00 Doct or Unassigned, [place] [facility] MEDICAL RELEASE/CLEARANCE FORMS 2022-10-09 05:01:00 Doctor Unassigned, [place] [facility] Plan of Care Planned Activity Planned Date Details Comments Source Goal Plan of Care Note [code = 18806-8] Goal Plan of Care Note [code = 71350-0] Goal Plan of Care Note [code = 27652-2] Goal Plan of Care Note [code = 95061-3] Goal Plan of Care Note [code = 64548-6] Goal Plan of Care Note [code = 12069-1] Goal Plan of Care Note [code = 92851-3] Goal Plan of Care Note [code = 71203-2] Goal Plan of Care Note [code = 07634-2] Goal Plan of Care Note [code = 40650-6] Goal Plan of Care Note [code = 39218-4] Goal Plan of Care Note [code = 35330-6] Goal Plan of Care Note [code = 05501-3] Goal Plan of Care Note [code = 77702-6] Goal Plan of Care Note [code = 16574-4] Goal Plan of Care Note [code = 92119-0] Goal Plan of Care Note [code = 83975-6] Goal Plan of Care Note [code = 20720-2] Goal Plan of Care Note [code = 45417-3] Goal Plan of Care Note [code = 19035-7] Goal Plan of Care Note [code = 61979-0] Goal Plan of Care Note [code = 80247-1] Goal Plan of Care Note [code = 72417-0] Goal Plan of Care Note [code = 61998-1] Goal Plan of Care Note [code = 18907-4] Goal Plan of Care Note [code = 18657-2] Goal Plan of Care Note [code = 61962-7] Goal Plan of Care Note [code = 32469-6] Goal Plan of Care Note [code = 72534-8] Goal Plan of Care Note [code = 43858-9] Goal Plan of Care Note [code = 06939-5] Goal Plan of Care Note [code = 16621-9] Goal Plan of Care Note [code = 65776-2] Goal Plan of Care Note [code = 53204-0] Goal Plan of Care Note [code = 33896-6] Goal Plan of Care Note [code = 36565-8] Goal Plan of Care Note [code = 46112-0] Goal Plan of Care Note [code = 74544-0] Goal Plan of Care Note [code = 85019-4] Goal Plan of Care Note [code = 33420-2] Goal Plan of Care Note [code = 38788-5] Goal Plan of Care Note [code = 89043-9] Goal Plan of Care Note [code = 41401-8] Goal Plan of Care Note [code = 55688-1] Goal Plan of Care Note [code = 54632-2] Goal Plan of Care Note [code = 63825-0] Goal Plan of Care Note [code = 41286-9] Goal Plan of Care Note [code = 60970-7] Goal Plan of Care Note [code = 19261-0] Goal Plan of Care Note [code = 44874-3] Goal Plan of Care Note [code = 48685-8] Goal Plan of Care Note [code = 14990-3] Goal Plan of Care Note [code = 67937-8] Goal Plan of Care Note [code = 24610-4] Goal Plan of Care Note [code = 05284-5] Goal Plan of Care Note [code = 97601-3] Goal Plan of Care Note [code = 34389-5] Goal Plan of Care Note [code = 85259-5] Goal Plan of Care Note [code = 76586-7] Goal Plan of Care Note [code = 90990-8] Goal Plan of Care Note [code = 99594-5] Goal Plan of Care Note [code = 53482-0] Goal Plan of Care Note [code = 92468-1] Goal Plan of Care Note [code = 68807-6] Goal Plan of Care Note [code = 64426-0] Goal Plan of Care Note [code = 00958-3] Goal Plan of Care Note [code = 45477-5] Goal Plan of Care Note [code = 62142-3] Goal Plan of Care Note [code = 44052-0] Goal Plan of Care Note [code = 80898-1] Goal Plan of Care Note [code = 79591-2] Goal Plan of Care Note [code = 67745-3] Goal Plan of Care Note [code = 13027-1] Goal Plan of Care Note [code = 71152-8] Goal Plan of Care Note [code = 60540-6] Goal Plan of Care Note [code = 29727-5] Goal Plan of Care Note [code = 11188-3] Goal Plan of Care Note [code = 93705-2] Goal Plan of Care Note [code = 80791-8] Goal Plan of Care Note [code = 33695-3] Goal Plan of Care Note [code = 16892-9] Goal Plan of Care Note [code = 89844-8] Goal Plan of Care Note [code = 46831-4] Encounters Start Date/Time End Date/Time Encounter Type Admission Type Attending [facility] Facility Care Department Encounter ID Source 2024-07-12 09:48:45 2024-07-12 09:48:45 Outpatient [facility] [id number] Jaden F Kris 2024-04-16 11:56:43 2024-04-16 11:56:43 Outpatient [facility] [id number] Jaden F Kris 2024-03-16 16:43:16 2024-03-16 16:43:16 Outpatient [facility] [id number] Jaden Serafin Kris 2024-02-25 10:41:50 2024-02-25 10:41:50 Outpatient [facility] [id number] Jaden Betancourt Kris 2024-02-25 00:00:00 2024-02-25 00:00:00 Outpatient Visit [facility] [id number] Jaden Ponce 2024-02-06 13:53:09 2024-02-06 13:53:09 Outpatient [facility] SFA [id number] Jaden Ponce 2024-02-06 00:00:00 2024-02-06 00:00:00 Outpatient Visit SFA [id number] Jaden Betancourt Kris 2024-01-15 15:58:11 2024-01-15 15:58:11 Outpatient SFA SFA 828 Jaden Betancourt Kris 2023-12-15 08:41:47 2023-12-15 08:41:47 Outpatient SFA SFA 728 Jaden Betancourt Kris 2023-11-13 00:00:00 2023-11-13 00:00:00 Outpatient Visit SFA [id number] Jaden Betancourt Kris 2023-11-10 14:10:07 2023-11-10 14:10:07 Outpatient SFA SFA 24 Jaden Betancourt [place] 2023-10-14 15:51:09 2023-10-14 15:51:09 Outpatient SFA SFA 527 Jaden Betancourt [place] 2023-09-15 16:15:18 2023-09-15 16:15:18 Outpatient SFA SFA [id number] Jaden Betancourt Kris 2023-08-26 15:52:22 2023-08-26 15:52:22 Outpatient SFA SFA [id number] Jaden Betancourt [place] 2023-08-14 09:36:17 2023-08-14 09:36:17 Outpatient SFA SFA [id number] Jaden Betancourt [place] 2023-07-14 14:28:32 2023-07-14 14:28:32 Outpatient SFA SFA [id number] Jaden Betancourt [place] 2023-06-18 10:02:18 2023-06-18 10:02:18 Outpatient SFA SFA [id number] Jaden Betancourt [place] 2023-06-17 17:18:38 2023-06-17 17:18:38 Outpatient SFA [facility] [id number] Jaden Betancourt Kris 2023-06-12 15:47:52 2023-06-12 15:47:52 Outpatient SFA [facility] [id number] Jaden Ponce 2023-04-28 14:22:48 2023-04-28 14:22:48 Outpatient [facility] [id number] Jaden Ponce 2023-03-19 16:04:06 2023-03-19 16:04:06 Outpatient [facility] [id number] Jaden Betancourt [place] 2023-02-27 13:54:38 2023-02-27 13:54:38 Outpatient [facility] [id number] Jaden Betancourt Kris 2023-02-18 14:41:08 2023-02-18 14:41:08 Outpatient [facility] [id number] Jaden Betancourt [place] 2023-01-30 17:52:20 2023-01-30 17:52:20 Outpatient [facility] [id number] Jaden Betancourt [place] 2023-01-14 12:11:29 2023-01-14 12:11:29 Outpatient [facility] [id number] Jaden Betancourt [place] 2022-12-11 17:36:37 2022-12-11 17:36:37 Outpatient [facility] [id number] Jaden Betancourt [place] 2022-10-21 00:00:00 2022-10-21 00:00:00 Orders Only Doctor Unassigned, [place] [address].840.114 350.1.13.10 4.2.7.2.686 [id number] General acute hospital 2022-10-15 00:00:00 2022-10-15 00:00:00 Telephone Maegan Head [facility] 1..840.114 350.1.13.10 4.2.7.2.686 [id number] General acute hospital 2022-10-11 00:00:00 2022-10-11 00:00:00 Orders Only Doctor Unassigned, [place] [address].114 350.1.13.10 4.2.7.2.686 [id number] General acute hospital 2022-10-11 00:00:00 2022-10-11 00:00:00 Telephone Maegan Head [facility] 1.840.114 350.1.13.10 4.2.7.2.686 [id number] General acute hospital 2022-10-09 00:00:00 2022-10-09 00:00:00 Orders Only Doctor Unassigned, [place] [facility] 1.0.114 350.1.13.10 4.2.7.2.686 [id number] General acute hospital 2022-10-09 00:00:00 2022-10-09 00:00:00 Telephone Maegan Head [facility] 1.0.114 350.1.13.10 4.2.7.2.686 [id number] General acute hospital 2022-10-07 14:30:00 2022-10-07 16:47:40 Outpatient R HEADMAEGAN [facility] [id number] General acute hospital 2022-10-07 14:30:00 2022-10-07 16:47:40 Office Visit Head Maegan Monroy [facility] 1.840.114 350.1.13.10 4.2.7.2.686 [id number] General acute hospital 2022-10-07 00:00:00 2022-10-07 00:00:00 Telephone Maegan Head [facility] 1.840.114 350.1.13.10 4.2.7.2.686 [id number] General acute hospital 2022-10-02 00:00:00 2022-10-02 00:00:00 Telephone Maegan Head [facility] 1.2.840.114 350.1.13.10 4.2.7.2.686 [id number] General acute hospital 2022-08-20 13:43:24 2022-08-20 13:43:24 Outpatient SFA SFA [id number] Jaden Ponce 2022-05-29 14:07:16 2022-05-29 14:07:16 Outpatient SFA SFA [id number] Jaden Ponce 2022-04-30 15:19:29 2022-04-30 15:19:29 Outpatient SFA SFA 1213 Jaden Ponce 2022-04-30 00:00:00 2022-04-30 00:00:00 Outpatient Visit [id number] 2022-03-27 00:00:00 2022-03-27 00:00:00 Outpatient DMG DMG [id number] [facility] 2022-03-26 09:54:48 2022-03-26 09:54:48 Outpatient SFA SFA 1108 Jaden Ponce 2022-03-26 00:00:00 2022-03-26 00:00:00 Outpatient Visit [id number] 2022-02-25 11:04:30 2022-02-25 11:04:30 Outpatient SFA SFA [id number] Jaden Ponce 2022-02-25 00:00:00 2022-02-25 00:00:00 Outpatient Visit [id number] 2021-11-30 00:00:00 2021-11-30 00:00:00 Outpatient Visit [id number] [id number] e05aeb 2021-11-27 04:42:00 2021-11-27 04:42:00 Outpatient [facility] [id number] Qian arrington [facility] Program Results Test Description Test Time Test Comments Results Result Co mments Source TSH, THIRD [id number] 07:15:39* Test Item Value Reference Range Interpretation Comme nts TSH, THIRD GENERATION (test code = 2821) 0.265 UIU/ML 0.400-4.100 L C-REACTIVE [id number] 05:45:48* Test Item Value Reference Range Interpretation Comme nts C-REACTIVE PROTEIN (test cod e = 3513) <0.3 MG/DL <0.5 COMPREHENSIVE METABOLIC [id number] 05:45:07* Test Item Value Reference Range Interpretation Comme nts GLUCOSE (test code = 2217) 178 MG/DL 70-99 H BUN (test code = 2208) 15 MG/DL 8-23 CREATININE (test code = 2214) 0.47 MG/DL 0.60-1.30 L eGFR (2020 CKD-EPI) (test code = 00488) 104 ML/MIN/1.73 >60 CALC BUN/CREAT (test code [...] MG/DL <=1.2 ALKALINE PHOSPHATASE (test code = 2203) 118 U/L 40-142 AST (test code = 2218) 10 U/L 9-40 ALT (test code = 2219) 17 U/L 5-40 HEMOGLOBIN [id number] 04:57:52* Test Item Value Reference Range Interpretation Comme nts HEMOGLOBIN A1c (test code = 86785) 5.8 % 4.2-5.6 H CITIZEN OF [employer] GUIDELINES FOR HGB A1C: [...] CONSIDER ALTERNATE TESTING OR LABORATORY CONSULTATION. SEDIMENTATION [id number] 04:22:25* Test Item Value Reference Range Interpretation Comme nts SEDIMENTATION RATE (test cod e = 1017) 2 MM/HOUR 0-20 CBC W/AUTO DIFF WITH [id number] 02:36:55* Test Item Value Reference Range Interpretation [...] = 1065) 0.0 /100 WBC'S See_Comment [Automated [employer]] The system which generated this result [...] H ABS NUCLEATED RBCS (test code = 84213) 0.00 K/UL 0.00-0.11 HEMOGLOBIN [id number] 00:00:00* Test Item Value Reference Range Interpretation Comme [facility] HEMOGLOBIN A1c (test code = 52675) 5.8 % Jaden PonceCOMPREHENSIVE METABOLIC [id number] 00:00:00* Test Item Value Reference Range Interpretation Comme nts GLUCOSE (test code = 2217) 178 MG/DL BUN (test code = 2208) 15 MG/DL CREATININE (test code = 2214) 0.47 MG/DL eGFR (2020 CKD-EPI) (test code = 79524) 104 ML/MIN/1.73 CALC BUN/CREAT (test code = [...] = 2219) 17 U/L Jaden PonceTSH, THIRD [id number] 00:00:00* Test Item Value Reference Range Interpretation Comme adrián TSH, THIRD GENERATION (test code = 2821) 0.265 UIU/ML Jaden PonceSEDIMENTATION [id number] 00:00:00* Test Item Value Reference Range Interpretation Comme nts SEDIMENTATION RATE (test cod e = 1017) 2 MM/HOUR Jaden PonceC-REACTIVE [id number] 00:00:00* Test Item Value Reference Range Interpretation Comme nts C-REACTIVE PROTEIN (test cod e = 3513) <0.3 MG/DL Jaden PonceVITAMIN D, 25 [id number] 00:00:00* Test Item Value Reference Range Interpretation Comme adrián VITAMIN D, 25 OH (test code = 4958) 34 NG/ML Jaden PonceCBC W/AUTO [id number] 00:00:00* Test Item Value Reference Range Interpretation Comme adrián WBC (test code = 1001) 9.6 K/UL [...] ABS NUCLEATED RBCS (test cod e = 75107) 0.00 K/UL Jaden PonceHEMOGLOBIN [id number] 00:00:00* Test Item Value Reference Range Interpretation Comme nts HEMOGLOBIN A1c (test code = 60661) 5.8 % Jaden PonceCOMPREHENSIVE METABOLIC [id number] 00:00:00* Test Item Value Reference Range Interpretation Comme nts GLUCOSE (test code = 2217) 178 MG/DL BUN (test code = 2208) 15 MG/DL CREATININE (test code = 2214) 0.47 MG/DL eGFR (2020 CKD-EPI) (test code = 05351) 104 ML/MIN/1.73 CALC BUN/CREAT (test code = [...] (test code = 2219) 17 U/L Jaden F AustinTSH, THIRD [id number] 00:00:00* Test Item Value Reference Range Interpretation Comme nts TSH, THIRD GENERATION (test code = 2821) 0.265 UIU/ML Jaden PonceSEDIMENTATION [id number] 00:00:00* Test Item Value Reference Range Interpretation Comme nts SEDIMENTATION RATE (test cod e = 1017) 2 MM/HOUR Jaden PonceC-REACTIVE [id number] 00:00:00* Test Item Value Reference Range Interpretation Comme nts C-REACTIVE PROTEIN (test cod e = 3513) <0.3 MG/DL Jaden PonceVITAMIN D, 25 [id number] 00:00:00* Test Item Value Reference Range Interpretation Comme nts VITAMIN D, 25 OH (test code = 4958) 34 NG/ML Jaden PonceCBC W/AUTO [id number] 00:00:00* Test Item Value Reference Range Interpretation [...] ABS NUCLEATED RBCS (test cod e = 26247) 0.00 K/UL Jaden PonceHEMOGLOBIN [id number] 00:00:00* Test Item Value Reference Range Interpretation Comme adrián HEMOGLOBIN A1c (test code = 96904) 5.8 % Jaden PonceCOMPREHENSIVE METABOLIC [id number] 00:00:00* Test Item Value Reference Range Interpretation Comme nts GLUCOSE (test code = 2217) 178 MG/DL BUN (test code = 2208) 15 MG/DL CREATININE (test code = 2214) 0.47 MG/DL eGFR (2020 CKD-EPI) (test code = 44271) 104 ML/MIN/1.73 CALC BUN/CREAT (test code = [...] = 2219) 17 U/L Jaden PonceTSH, THIRD [id number] 00:00:00* Test Item Value Reference Range Interpretation Comme adrián TSH, THIRD GENERATION (test code = 2821) 0.265 UIU/ML Jaden PonceSEDIMENTATION [id number] 00:00:00* Test Item Value Reference Range Interpretation Comme nts SEDIMENTATION RATE (test cod e = 1017) 2 MM/HOUR Jaden PonceC-REACTIVE [id number] 00:00:00* Test Item Value Reference Range Interpretation Comme adrián C-REACTIVE PROTEIN (test cod e = 3513) <0.3 MG/DL Jaden PonceVITAMIN D, 25 [id number] 00:00:00* Test Item Value Reference Range Interpretation Comme nts VITAMIN D, 25 OH (test code = 4958) 34 NG/ML Jaden PonceCBC W/AUTO [id number] 00:00:00* Test Item Value Reference Range Interpretation [...] ABS NUCLEATED RBCS (test cod e = 68773) 0.00 K/UL Jaden PonceLIPID [id number] 06:45:40* Test Item Value Reference Range Interpretation [...] SPECIMENS. FOR MOREINFORMATION, SEE CLIENT ANNOUNCEMENT AT [email or web address] RISK RATIO LDL/HDL (test code = 2237) 1.58 RATIO <3.22 COMPREHENSIVE METABOLIC [id number] 06:45:40* Test Item Value Reference Range Interpretation Comme nts GLUCOSE (test code = 2216) 185 MG/DL 70-99 H BUN (test code = 2207) 10 MG/DL 8-23 CREATININE (test code = 2213) 0.55 MG/DL 0.60-1.30 L eGFR (2020 CKD-EPI) (test code = 59162) 101 ML/MIN/1.73 >60 CALC BUN/CREAT (test code = 2235) 18 RATIO 6-28 SODIUM (test code = 2230) 134 MEQ/L 133-146 POTASSIUM (test code = 2227) 3.5 MEQ/L 3.5-5.4 CHLORIDE (test code = 2215) 94 MEQ/L 95-107 L CARBON DIOXIDE (test code = 6) 23 MEQ/L 19-31 CALCIUM (test code = 220) 10.0 MG/DL 8.5-10.5 PROTEIN, TOTAL (test code = 222) 7.2 G/DL 6.1-8.3 ALBUMIN (test code = 220) 4.8 G/DL [...] = 2219) 17 U/L 5-40 [facility] has impo rtant pathology staff changes effective 07/17/2022. New pathology staff will provide uninterrupted, excellent patient care and clinical consultation. See URL: [email or web address]. UNLESS OTHERWISE INDICATED, ALL TESTING PERFORMED AT [facility] [address] [place] [id number] CERTIFIED HYPERBARIC TECHNOLOGIST: JOEY SILVA M.D. [place] NUMBER [id number] [facility] [place] [place]. [id number] HEMOGLOBIN [id number] 03:45:25* Test Item Value Reference Range Interpretation Comme nts HEMOGLOBIN A1c (test code = 15423) 6.1 % 4.2-5.6 H CITIZEN OF [employer] GUIDELINES FOR HGB A1C: [...] OR LABORATORY CONSULTATION. CBC W/AUTO DIFF WITH [id number] 02:39:50* Test Item Value Reference Range Interpretation [...] = 1065) 0.0 /100 WBC'S See_Comment [Automated [employer]] The system which generated this result [...] H ABS NUCLEATED RBCS (test code = 62347) 0.00 K/UL 0.00-0.11 HEMOGLOBIN [id number] 00:00:00* Test Item Value Reference Range Interpretation Comme nts HEMOGLOBIN A1c (test code = 90482) 6.1 % Jaden Betancourt QuitaqueLIPID [id number] 00:00:00* Test Item Value Reference Range Interpretation Comme nts CHOLESTEROL (test code = 2210) 219 MG/DL TRIGLYCERIDES (test code = 2232) 85 MG/DL HDL CHOLESTEROL (test code = 2220) 78 MG/DL CALC LDL CHOL (test code = 2237) 123 MG/DL RISK RATIO LDL/HDL (test cod e = 2238) 1.58 RATIO Jaden Betancourt KrisCOMPREHENSIVE METABOLIC [id number] 00:00:00* Test Item Value Reference Range Interpretation Comme nts GLUCOSE (test code = 2217) 185 MG/DL BUN (test code = 2208) 10 MG/DL CREATININE (test code = 2214) 0.55 MG/DL eGFR (2020 CKD-EPI) (test code = 60186) 101 ML/MIN/1.73 CALC BUN/CREAT (test code = [...] code = 2219) 17 U/L [facility] [id number] 00:00:00* Test Item Value Reference Range Interpretation [...] ABS NUCLEATED RBCS (test cod e = 27525) 0.00 K/UL Jaden PonceHEMOGLOBIN [id number] 00:00:00* Test Item Value Reference Range Interpretation Comme adrián HEMOGLOBIN A1c (test code = 52053) 6.1 % Jaden PonceLIPID [id number] 00:00:00* Test Item Value Reference Range Interpretation Comme nts CHOLESTEROL (test code = 2210) 219 MG/DL TRIGLYCERIDES (test code = 2232) 85 MG/DL HDL CHOLESTEROL (test code = 2220) 78 MG/DL CALC LDL CHOL (test code = 2237) 123 MG/DL RISK RATIO LDL/HDL (test cod e = 2238) 1.58 RATIO Jaden PonceCOMPREHENSIVE METABOLIC [id number] 00:00:00* Test Item Value Reference Range Interpretation Comme nts GLUCOSE (test code = 2217) 185 MG/DL BUN (test code = 2208) 10 MG/DL CREATININE (test code = 2214) 0.55 MG/DL eGFR (2020 CKD-EPI) (test code = 10260) 101 ML/MIN/1.73 CALC BUN/CREAT (test code = [...] = 2219) 17 U/L Jaden PonceCBC W/AUTO [id number] 00:00:00* Test Item Value Reference Range Interpretation [...] ABS NUCLEATED RBCS (test cod e = 29642) 0.00 K/UL Jaden PonceHEMOGLOBIN [id number] 00:00:00* Test Item Value Reference Range Interpretation Comme nts HEMOGLOBIN A1c (test code = 08932) 6.1 % Jaden PonceLIPID [id number] 00:00:00* Test Item Value Reference Range Interpretation Comme nts CHOLESTEROL (test code = 2210) 219 MG/DL TRIGLYCERIDES (test code = 2232) 85 MG/DL HDL CHOLESTEROL (test code = 2220) 78 MG/DL CALC LDL CHOL (test code = 2237) 123 MG/DL RISK RATIO LDL/HDL (test cod e = 2238) 1.58 RATIO Jaden PonceCOMPREHENSIVE METABOLIC [id number] 00:00:00* Test Item Value Reference Range Interpretation Comme nts GLUCOSE (test code = 2217) 185 MG/DL BUN (test code = 2208) 10 MG/DL CREATININE (test code = 2214) 0.55 MG/DL eGFR (2020 CKD-EPI) (test code = 60096) 101 ML/MIN/1.73 CALC BUN/CREAT (test code = [...] ALT (test code = 2219) 17 U/L Jadne Betancourt [facility] W/AUTO [id number] 00:00:00* Test Item Value Reference Range Interpretation [...] ABS NUCLEATED RBCS (test cod e = 03750) 0.00 K/UL Jaden PonceOCCULT BLD,FECAL,IMMUNOASSAY [id number] 15:52:05* Test Item Value Reference Range Interpretation Comme nts OCCULT BLD, FECAL (test code = 06993) NEGATIVE NEGATIVE [facility] has important pathology staff changes effective 07/17/2022. New pathology staff will provide uninterrupted, excellent patient care and clinical consultation. See URL: [email or web address]. UNLESS OTHERWISE INDICATED, ALL TESTING PERFORMED AT [facility] [address] [place] [address] CLIA: [id number], CAP: [id number] OCCULT BLD,FECAL,IMMUNOASSAY [id number] 00:00:00* Test Item Value Reference Range Interpretation Comme nts OCCULT BLD, FECAL (test code = 39827) NEGATIVE Jaden Betancourt AustinOCCULT BLD,FECAL,IMMUNOASSAY [id number] 00:00:00* Test Item Value Reference Range Interpretation Comme nts OCCULT BLD, FECAL (test code = 97865) NEGATIVE Jaden Betancourt AustinOCCULT BLD,FECAL,IMMUNOASSAY [id number] 00:00:00* Test Item Value Reference Range Interpretation Comme nts OCCULT BLD, FECAL (test code = 16756) NEGATIVE Jaden ConleyH, THIRD [id number] 06:49:25* Test Item Value Reference Range Interpretation Comme nts TSH, THIRD GENERATION (test code = 2821) 1.600 UIU/ML 0.400-4.100 [id number] 06:45:12* Test Item Value Reference Range Interpretation Comme nts NT-proBNP (test code = 41633) <50 PG/ML SEE BELOW If NT-ProBNP is less than 300 PG/ML, heart failure is unlikely for allages. Age.................Heart Failure Likely <50 Years...........>=450 PG/ML 50-75 Years.........>=900 PG/ML > 75 Years..........>=1800 PG/ML Methodology: [employer] Electrochem[employer] Immunoassay UNLESS OTHERWISE INDICATED, ALL TESTING PERFORMED [facility] [address] [place] [id number] CERTIFIED HYPERBARIC TECHNOLOGIST: ELIAS ESPANA M.D. [place] NUMBER [id number] [facility] [place]. [id number] COMPREHENSIVE METABOLIC [id number] 04:56:47* Test Item Value Reference Range Interpretation Comme nts GLUCOSE (test code = 2217) 137 MG/DL 70-99 H BUN (test code = 2207) 12 MG/DL 8-23 CREATININE (test code = 221) 0.60 MG/DL 0.60-1.30 eGFR (2020 CKD-EPI) (test code = 62592) 99 ML/MIN/1.73 >60 CALC BUN/CREAT (test code = 2235) 20 RATIO 6-28 SODIUM (test code = 2231) 143 MEQ/L 133-146 POTASSIUM (test code = 2228) 4.3 MEQ/L 3.5-5.4 CHLORIDE (test code = 2215) 105 MEQ/L 95-107 CARBON DIOXIDE (test code = 2206) 25 MEQ/L 19-31 CALCIUM (test code = 2209) 9.6 MG/DL 8.5-10.5 PROTEIN, TOTAL (test code = 2229) 6.8 G/DL 6.1-8.3 ALBUMIN (test code = 2201) 4.5 G/DL 3.5-5.2 CALC GLOBULIN (test code = 2240) 2.3 G/DL 1.9-3.7 CALC A/G RATIO (test code = 2234) 2.0 RATIO 1.0-2.6 BILIRUBIN, TOTAL (test code = 2207) 0.2 MG/DL See_Comment [Automated me ssage] The system which generated this result transmitted reference range: <=1.2. The reference range was not used to interpret this result as normal/abnormal. ALKALINE PHOSPHATASE (test code = 2204) 128 U/L 40-142 AST (test code = 2218) 15 U/L 9-40 ALT (test code = 2219) 11 U/L 5-40 LIPID [id number] 04:56:47* Test Item Value Reference Range Interpretation [...] SPECIMENS. FOR MOREINFORMATION, SEE CLIENT ANNOUNCEMENT AT [email or web address] /[email or web address] RISK RATIO LDL/HDL (test code = 2238) 2.59 RATIO <3.22 HEMOGLOBIN [id number] 04:00:46* Test Item Value Reference Range Interpretation Comme nts HEMOGLOBIN A1c (test code = 92458) 5.9 % 4.2-5.6 H CBC W/AUTO DIFF WITH [id number] 02:37:32* Test Item Value Reference Range Interpretation [...] 0.00-0.10 ABS NUCLEATED RBCS (test code = 87725) 0.00 K/UL 0.00-0.11 CBC W/AUTO [id number] 00:00:00* Test Item Value Reference Range Interpretation [...] ABS NUCLEATED RBCS (test cod e = 10556) 0.00 K/UL Jaden PonceCOMPREHENSIVE METABOLIC [id number] 00:00:00* Test Item Value Reference Range Interpretation Comme nts GLUCOSE (test code = 2217) 137 MG/DL BUN (test code = 2208) 12 MG/DL CREATININE (test code = 2214) 0.60 MG/DL eGFR (2020 CKD-EPI) (test co de = 37310) 99 ML/MIN/1.73 CALC BUN/CREAT (test code = [...] code = 2219) 11 U/L Jaden PonceLIPID [id number] 00:00:00* Test Item Value Reference Range Interpretation Comme nts CHOLESTEROL (test code = 2210) 236 MG/DL TRIGLYCERIDES (test code = 2232) 274 MG/DL HDL CHOLESTEROL (test code = 2220) 54 MG/DL CALC LDL CHOL (test code = 2237) 140 MG/DL RISK RATIO LDL/HDL (test cod e = 2238) 2.59 RATIO Jaden PonceSHIRLENEH, THIRD [id number] 00:00:00* Test Item Value Reference Range Interpretation Comme nts TSH, THIRD GENERATION (test code = 2821) 1.600 UIU/ML Jaden PonceEbhywgAS-[id number] 00:00:00* Test Item Value Reference Range Interpretation Comme nts NT-proBNP (test code = 28365) <50 PG/ML Jaden PonceHEMOGLOBIN [id number] 00:00:00* Test Item Value Reference Range Interpretation Comme nts HEMOGLOBIN A1c (test code = 96829) 5.9 % Jaden PonceCBC W/AUTO [id number] 00:00:00* Test Item Value Reference Range Interpretation [...] ABS NUCLEATED RBCS (test cod e = 98169) 0.00 K/UL Jaden PonceCOMPREHENSIVE METABOLIC [id number] 00:00:00* Test Item Value Reference Range Interpretation Comme nts GLUCOSE (test code = 2217) 137 MG/DL BUN (test code = 2208) 12 MG/DL CREATININE (test code = 2214) 0.60 MG/DL eGFR (2020 CKD-EPI) (test co de = 91372) 99 ML/MIN/1.73 CALC BUN/CREAT (test code = [...] code = 2219) 11 U/L Jaden PonceLIPID [id number] 00:00:00* Test Item Value Reference Range Interpretation Comme nts CHOLESTEROL (test code = 2210) 236 MG/DL TRIGLYCERIDES (test code = 2232) 274 MG/DL HDL CHOLESTEROL (test code = 2220) 54 MG/DL CALC LDL CHOL (test code = 2237) 140 MG/DL RISK RATIO LDL/HDL (test cod e = 2238) 2.59 RATIO Jaden PonceTSH, THIRD [id number] 00:00:00* Test Item Value Reference Range Interpretation Comme nts TSH, THIRD GENERATION (test code = 2821) 1.600 UIU/ML Jaden PonceMjpaxvPP-[id number] 00:00:00* Test Item Value Reference Range Interpretation Comme nts NT-proBNP (test code = 94699) <50 PG/ML Jaden PonceHEMOGLOBIN [id number] 00:00:00* Test Item Value Reference Range Interpretation Comme nts HEMOGLOBIN A1c (test code = 96873) 5.9 % Jaden PonceCBC W/AUTO [id number] 00:00:00* Test Item Value Reference Range Interpretation [...] ABS NUCLEATED RBCS (test cod e = 04944) 0.00 K/UL Jaden Serafin KrisCOMPREHENSIVE METABOLIC [id number] 00:00:00* Test Item Value Reference Range Interpretation Comme nts GLUCOSE (test code = 2217) 137 MG/DL BUN (test code = 2208) 12 MG/DL CREATININE (test code = 2214) 0.60 MG/DL eGFR (2020 CKD-EPI) (test co de = 96574) 99 ML/MIN/1.73 CALC BUN/CREAT (test code = [...] code = 2219) 11 U/L Jaden PonceLIPID [id number] 00:00:00* Test Item Value Reference Range Interpretation Comme nts CHOLESTEROL (test code = 2210) 236 MG/DL TRIGLYCERIDES (test code = 2232) 274 MG/DL HDL CHOLESTEROL (test code = 2220) 54 MG/DL CALC LDL CHOL (test code = 2237) 140 MG/DL RISK RATIO LDL/HDL (test cod e = 2238) 2.59 RATIO Jaden PonceTSH, THIRD [id number] 00:00:00* Test Item Value Reference Range Interpretation Comme adrián TSH, THIRD GENERATION (test code = 2821) 1.600 UIU/ML Jaden PonceKcrwrxVN-[id number] 00:00:00* Test Item Value Reference Range Interpretation Comme adrián NT-proBNP (test code = 47899) <50 PG/ML Jaden PonceHEMOGLOBIN [id number] 00:00:00* Test Item Value Reference Range Interpretation Comme adrián HEMOGLOBIN A1c (test code = 64509) 5.9 % Jaden PonceHEMOGLOBIN [id number] 00:00:00* Test Item Value Reference Range Interpretation Comme adrián HEMOGLOBIN A1c (test code = 94313) 5.9 % CBC W/AUTO [id number] 00:00:00* Test Item Value Reference Range Interpretation [...] ABS NUCLEATED RBCS (test cod e = 12453) 0.00 K/UL COMPREHENSIVE METABOLIC [id number] 00:00:00* Test Item Value Reference Range Interpretation Comme nts GLUCOSE (test code = 2217) 137 MG/DL BUN (test code = 2208) 12 MG/DL CREATININE (test code = 2214) 0.60 MG/DL eGFR (2020 CKD-EPI) (test co de = 02602) 99 ML/MIN/1.73 CALC BUN/CREAT (test code = [...] (test code = 2219) 11 U/L LIPID [id number] 00:00:00* Test Item Value Reference Range Interpretation Comme nts CHOLESTEROL (test code = 2210) 236 MG/DL TRIGLYCERIDES (test code = 2232) 274 MG/DL HDL CHOLESTEROL (test code = 2220) 54 MG/DL CALC LDL CHOL (test code = 2237) 140 MG/DL RISK RATIO LDL/HDL (test cod e = 2238) 2.59 RATIO TSH, THIRD [id number] 00:00:00* Test Item Value Reference Range Interpretation Comme nts TSH, THIRD GENERATION (test code = 2821) 1.600 UIU/ML [id number] 00:00:00* Test Item Value Reference Range Interpretation Comme nts NT-proBNP (test code = 16898) <50 PG/ML HEMOGLOBIN [id number] 00:00:00* Test Item Value Reference Range Interpretation Comme nts HEMOGLOBIN A1c (test code = 88684) 5.9 % CBC W/AUTO [id number] 00:00:00* Test Item Value Reference Range Interpretation [...] ABS NUCLEATED RBCS (test cod e = 25628) 0.00 K/UL COMPREHENSIVE METABOLIC [id number] 00:00:00* Test Item Value Reference Range Interpretation Comme nts GLUCOSE (test code = 2217) 137 MG/DL BUN (test code = 2208) 12 MG/DL CREATININE (test code = 2214) 0.60 MG/DL eGFR (2020 CKD-EPI) (test co de = 82498) 99 ML/MIN/1.73 CALC BUN/CREAT (test code = [...] (test code = 2219) 11 U/L LIPID [id number] 00:00:00* Test Item Value Reference Range Interpretation Comme nts CHOLESTEROL (test code = 2210) 236 MG/DL TRIGLYCERIDES (test code = 2232) 274 MG/DL HDL CHOLESTEROL (test code = 2220) 54 MG/DL CALC LDL CHOL (test code = 2237) 140 MG/DL RISK RATIO LDL/HDL (test cod e = 2238) 2.59 RATIO TSH, THIRD [id number] 00:00:00* Test Item Value Reference Range Interpretation Comme nts TSH, THIRD GENERATION (test code = 2821) 1.600 UIU/ML [id number] 00:00:00* Test Item Value Reference Range Interpretation Comme nts NT-proBNP (test code = 70992) <50 PG/ML HEMOGLOBIN [id number] 00:00:00* Test Item Value Reference Range Interpretation Comme nts HEMOGLOBIN A1c (test code = 42759) 5.9 % CBC W/AUTO [id number] 00:00:00* Test Item Value Reference Range Interpretation [...] ABS NUCLEATED RBCS (test cod e = 60724) 0.00 K/UL COMPREHENSIVE METABOLIC [id number] 00:00:00* Test Item Value Reference Range Interpretation Comme nts GLUCOSE (test code = 2217) 137 MG/DL BUN (test code = 2208) 12 MG/DL CREATININE (test code = 2214) 0.60 MG/DL eGFR (2020 CKD-EPI) (test co de = 64943) 99 ML/MIN/1.73 CALC BUN/CREAT (test code = [...] (test code = 2219) 11 U/L LIPID [id number] 00:00:00* Test Item Value Reference Range Interpretation Comme nts CHOLESTEROL (test code = 2210) 236 MG/DL TRIGLYCERIDES (test code = 2232) 274 MG/DL HDL CHOLESTEROL (test code = 0) 54 MG/DL CALC LDL CHOL (test code = 2237) 140 MG/DL RISK RATIO LDL/HDL (test cod e = 2238) 2.59 RATIO TSH, THIRD [id number] 00:00:00* Test Item Value Reference Range Interpretation Comme nts TSH, THIRD GENERATION (test code = 2821) 1.600 UIU/ML [id number] 00:00:00* Test Item Value Reference Range Interpretation Comme nts NT-proBNP (test code = 18734) <50 PG/ML HEMOGLOBIN [id number] 00:00:00* Test Item Value Reference Range Interpretation Comme nts HEMOGLOBIN A1c (test code = 28366) 5.9 % CBC W/AUTO [id number] 00:00:00* Test Item Value Reference Range Interpretation [...] ABS NUCLEATED RBCS (test cod e = 69763) 0.00 K/UL COMPREHENSIVE METABOLIC [id number] 00:00:00* Test Item Value Reference Range Interpretation Comme nts GLUCOSE (test code = 2217) 137 MG/DL BUN (test code = 2208) 12 MG/DL CREATININE (test code = 2214) 0.60 MG/DL eGFR (2020 CKD-EPI) (test co de = 63351) 99 ML/MIN/1.73 CALC BUN/CREAT (test code = [...] (test code = 2219) 11 U/L LIPID [id number] 00:00:00* Test Item Value Reference Range Interpretation Comme nts CHOLESTEROL (test code = 2210) 236 MG/DL TRIGLYCERIDES (test code = 2232) 274 MG/DL HDL CHOLESTEROL (test code = 2220) 54 MG/DL CALC LDL CHOL (test code = 2237) 140 MG/DL RISK RATIO LDL/HDL (test cod e = 2238) 2.59 RATIO TSH, THIRD [id number] 00:00:00* Test Item Value Reference Range Interpretation Comme nts TSH, THIRD GENERATION (test code = 2821) 1.600 UIU/ML [id number] 00:00:00* Test Item Value Reference Range Interpretation Comme nts NT-proBNP (test code = 67855) <50 PG/ML CBC W/AUTO [id number] 00:00:00* Test Item Value Reference Range Interpretation [...] ABS NUCLEATED RBCS (test cod e = 11362) 0.00 K/UL Jaden PonceCOMPREHENSIVE METABOLIC [id number] 00:00:00* Test Item Value Reference Range Interpretation Comme nts GLUCOSE (test code = 2217) 106 MG/DL BUN (test code = 2208) 7 MG/DL CREATININE (test code = 2214) 0.57 MG/DL eGFR AMER. (test cod e = 66730) 113 ML/MIN/1.73 eGFR NON- AMER. (test code = 28745) 97 ML/MIN/1.73 CALC BUN/CREAT (test code = [...] (test code = 2219) 12 U/L Jaden [id number] 00:00:00* Test Item Value Reference Range Interpretation Comme nts TSH, THIRD GENERATION (test code = 2821) 1.390 UIU/ML Jaden PonceHEMOGLOBIN A1c [ADDED]2021-04-05 00:00:00* Test Item Value Reference Range Interpretation Comme adrián HEMOGLOBIN A1c (test code = 82313) 5.7 % Jaden PonceLIPID [id number] 00:00:00* Test Item Value Reference Range Interpretation Comme nts CHOLESTEROL (test code = 2210) 252 MG/DL TRIGLYCERIDES (test code = 2232) 171 MG/DL HDL CHOLESTEROL (test code = 2220) 61 MG/DL CALC LDL CHOL (test code = 2237) 159 MG/DL RISK RATIO LDL/HDL (test cod e = 2238) 2.61 RATIO Jaden PonceCBC W/AUTO [id number] 00:00:00* Test Item Value Reference Range Interpretation [...] ABS NUCLEATED RBCS (test cod e = 03156) 0.00 K/UL Jaden PonceCOMPREHENSIVE METABOLIC [id number] 00:00:00* Test Item Value Reference Range Interpretation Comme nts GLUCOSE (test code = 2217) 106 MG/DL BUN (test code = 2208) 7 MG/DL CREATININE (test code = 2214) 0.57 MG/DL eGFR AMER. (test cod e = 75623) 113 ML/MIN/1.73 eGFR NON- AMER. (test code = 30302) 97 ML/MIN/1.73 CALC BUN/CREAT (test code = [...] ALT (test code = 2219) 12 U/L Jaedn [id number] 00:00:00* Test Item Value Reference Range Interpretation Comme [facility] TSH, THIRD GENERATION (test code = 2821) 1.390 UIU/ML Jaden PonceHEMOGLOBIN A1c [ADDED]2021-04-05 00:00:00* Test Item Value Reference Range Interpretation Comme nts HEMOGLOBIN A1c (test code = 84550) 5.7 % Jaden PonceLIPID [id number] 00:00:00* Test Item Value Reference Range Interpretation Comme nts CHOLESTEROL (test code = 2210) 252 MG/DL TRIGLYCERIDES (test code = 2232) 171 MG/DL HDL CHOLESTEROL (test code = 2220) 61 MG/DL CALC LDL CHOL (test code = 2237) 159 MG/DL RISK RATIO LDL/HDL (test cod e = 2238) 2.61 RATIO Jaden PonceCBC W/AUTO [id number] 00:00:00* Test Item Value Reference Range Interpretation [...] ABS NUCLEATED RBCS (test cod e = 36726) 0.00 K/UL Jaden PonceCOMPREHENSIVE METABOLIC [id number] 00:00:00* Test Item Value Reference Range Interpretation Comme nts GLUCOSE (test code = 2217) 106 MG/DL BUN (test code = 2208) 7 MG/DL CREATININE (test code = 2214) 0.57 MG/DL eGFR AMER. (test cod e = 73575) 113 ML/MIN/1.73 eGFR NON- AMER. (test code = 79240) 97 ML/MIN/1.73 CALC BUN/CREAT (test code = [...] (test code = 2219) 12 U/L Jaden [id number] 00:00:00* Test Item Value Reference Range Interpretation Comme adrián TSH, THIRD GENERATION (test code = 2821) 1.390 UIU/ML Jaden PonceHEMOGLOBIN A1c [ADDED]2021-04-05 00:00:00* Test Item Value Reference Range Interpretation Comme adrián HEMOGLOBIN A1c (test code = 29616) 5.7 % Jaden PonceLIPID [id number] 00:00:00* Test Item Value Reference Range Interpretation Comme nts CHOLESTEROL (test code = 2210) 252 MG/DL TRIGLYCERIDES (test code = 2232) 171 MG/DL HDL CHOLESTEROL (test code = 2220) 61 MG/DL CALC LDL CHOL (test code = 2237) 159 MG/DL RISK RATIO LDL/HDL (test cod e = 2238) 2.61 RATIO Jaden PonceLIPID [id number] 00:00:00* Test Item Value Reference Range Interpretation Comme nts CHOLESTEROL (test code = 2210) 252 MG/DL TRIGLYCERIDES (test code = 2232) 171 MG/DL HDL CHOLESTEROL (test code = 2220) 61 MG/DL CALC LDL CHOL (test code = 2237) 159 MG/DL RISK RATIO LDL/HDL (test cod e = 2238) 2.61 RATIO CBC W/AUTO [id number] 00:00:00* Test Item Value Reference Range Interpretation [...] ABS NUCLEATED RBCS (test cod e = 15323) 0.00 K/UL COMPREHENSIVE METABOLIC [id number] 00:00:00* Test Item Value Reference Range Interpretation Comme nts GLUCOSE (test code = 2217) 106 MG/DL BUN (test code = 2208) 7 MG/DL CREATININE (test code = 2214) 0.57 MG/DL eGFR AMER. (test cod e = 59799) 113 ML/MIN/1.73 eGFR NON- AMER. (test code = 99371) 97 ML/MIN/1.73 CALC BUN/CREAT (test code = [...] ALT (test code = 2219) 12 U/L [id number] 00:00:00* Test Item Value Reference Range Interpretation Comme nts TSH, THIRD GENERATION (test code = 2821) 1.390 UIU/ML HEMOGLOBIN A1c [ADDED]2021-04-05 00:00:00* Test Item Value Reference Range Interpretation Comme nts HEMOGLOBIN A1c (test code = 54996) 5.7 % LIPID [id number] 00:00:00* Test Item Value Reference Range Interpretation Comme nts CHOLESTEROL (test code = 2210) 252 MG/DL TRIGLYCERIDES (test code = 2232) 171 MG/DL HDL CHOLESTEROL (test code = 2220) 61 MG/DL CALC LDL CHOL (test code = 2237) 159 MG/DL RISK RATIO LDL/HDL (test cod e = 2238) 2.61 RATIO CBC W/AUTO [id number] 00:00:00* Test Item Value Reference Range Interpretation [...] ABS NUCLEATED RBCS (test cod e = 03440) 0.00 K/UL COMPREHENSIVE METABOLIC [id number] 00:00:00* Test Item Value Reference Range Interpretation Comme nts GLUCOSE (test code = 2217) 106 MG/DL BUN (test code = 2208) 7 MG/DL CREATININE (test code = 2214) 0.57 MG/DL eGFR AMER. (test cod e = 90945) 113 ML/MIN/1.73 eGFR NON- AMER. (test code = 62371) 97 ML/MIN/1.73 CALC BUN/CREAT (test code = 2235) 12 RATIO SODIUM (test code = 2231) 141 MEQ/L POTASSIUM (test code = 2228) 4.0 MEQ/L CHLORIDE (test code = 2215) 101 MEQ/L CARBON DIOXIDE (test code = 2206) 24 MEQ/L CALCIUM (test code = 2209) 9.7 MG/DL PROTEIN, TOTAL (test code = 222) 7.3 G/DL ALBUMIN (test code = 2201) 4.8 G/DL CALC GLOBULIN (test code = 2240) 2.5 G/DL CALC A/G RATIO (test code = 2234) 1.9 RATIO BILIRUBIN, TOTAL (test code = 220) 0.2 MG/DL ALKALINE PHOSPHATASE (test code = 2204) 102 U/L AST (test code = 2218) 14 U/L ALT (test code = 2219) 12 U/L [id number] 00:00:00* Test Item Value Reference Range Interpretation Comme nts TSH, THIRD GENERATION (test code = 2821) 1.390 UIU/ML HEMOGLOBIN A1c [ADDED]2021-04-05 00:00:00* Test Item Value Reference Range Interpretation Comme nts HEMOGLOBIN A1c (test code = 16822) 5.7 % LIPID [id number] 00:00:00* Test Item Value Reference Range Interpretation Comme nts CHOLESTEROL (test code = 2210) 252 MG/DL TRIGLYCERIDES (test code = 2232) 171 MG/DL HDL CHOLESTEROL (test code = 2220) 61 MG/DL CALC LDL CHOL (test code = 2237) 159 MG/DL RISK RATIO LDL/HDL (test cod e = 2238) 2.61 RATIO CBC W/AUTO [id number] 00:00:00* Test Item Value Reference Range Interpretation [...] ABS NUCLEATED RBCS (test cod e = 11400) 0.00 K/UL COMPREHENSIVE METABOLIC [id number] 00:00:00* Test Item Value Reference Range Interpretation Comme nts GLUCOSE (test code = 2217) 106 MG/DL BUN (test code = 2208) 7 MG/DL CREATININE (test code = 2214) 0.57 MG/DL eGFR AMER. (test cod e = 52017) 113 ML/MIN/1.73 eGFR NON- AMER. (test code = 28476) 97 ML/MIN/1.73 CALC BUN/CREAT (test code = [...] ALT (test code = 2219) 12 U/L [id number] 00:00:00* Test Item Value Reference Range Interpretation Comme nts TSH, THIRD GENERATION (test code = 2821) 1.390 UIU/ML HEMOGLOBIN A1c [ADDED]2021-04-05 00:00:00* Test Item Value Reference Range Interpretation Comme nts HEMOGLOBIN A1c (test code = 95266) 5.7 % LIPID [id number] 00:00:00* Test Item Value Reference Range Interpretation Comme nts CHOLESTEROL (test code = 2210) 252 MG/DL TRIGLYCERIDES (test code = 2232) 171 MG/DL HDL CHOLESTEROL (test code = 2220) 61 MG/DL CALC LDL CHOL (test code = 2237) 159 MG/DL RISK RATIO LDL/HDL (test cod e = 2238) 2.61 RATIO CBC W/AUTO [id number] 00:00:00* Test Item Value Reference Range Interpretation [...] ABS NUCLEATED RBCS (test cod e = 91085) 0.00 K/UL COMPREHENSIVE METABOLIC [id number] 00:00:00* Test Item Value Reference Range Interpretation Comme nts GLUCOSE (test code = 2217) 106 MG/DL BUN (test code = 2208) 7 MG/DL CREATININE (test code = 2214) 0.57 MG/DL eGFR AMER. (test cod e = 79397) 113 ML/MIN/1.73 eGFR NON- AMER. (test code = 85115) 97 ML/MIN/1.73 CALC BUN/CREAT (test code = [...] ALT (test code = 2219) 12 U/L [id number] 00:00:00* Test Item Value Reference Range Interpretation Comme [facility] TSH, THIRD GENERATION (test code = 2821) 1.390 UIU/ML HEMOGLOBIN A1c [ADDED]2021-04-05 00:00:00* Test Item Value Reference Range Interpretation Comme [facility] HEMOGLOBIN A1c (test code = 85682) 5.7 % HEMOGLOBIN [id number] 00:00:00* Test Item Value Reference Range Interpretation Comme nts HEMOGLOBIN A1c (test code = 11803) 5.7 % Jaden PonceLIPID [id number] 00:00:00* Test Item Value Reference Range Interpretation Comme nts CHOLESTEROL (test code = 2210) 166 MG/DL TRIGLYCERIDES (test code = 2232) 209 MG/DL HDL CHOLESTEROL (test code = 2220) 47 MG/DL CALC LDL CHOL (test code = 2237) 89 MG/DL RISK RATIO LDL/HDL (test cod e = 2238) 1.89 RATIO Jaden PonceCOMPREHENSIVE METABOLIC [id number] 00:00:00* Test Item Value Reference Range Interpretation Comme nts GLUCOSE (test code = 2217) 106 MG/DL BUN (test code = 2208) 10 MG/DL CREATININE (test code = 2214) 0.64 MG/DL eGFR AMER. (test cod e = 47230) 110 ML/MIN/1.73 eGFR NON- AMER. (test code = 56514) 95 ML/MIN/1.73 CALC BUN/CREAT (test code = [...] (test code = 2219) 19 U/L Jaden [id number] 00:00:00* Test Item Value Reference Range Interpretation Comme nts TSH, THIRD GENERATION (test code = 2821) 1.690 UIU/ML Jaden PonceCBC W/AUTO [id number] 00:00:00* Test Item Value Reference Range Interpretation [...] code = 1015) 249 K/UL Jaden PonceHEMOGLOBIN [id number] 00:00:00* Test Item Value Reference Range Interpretation Comme [facility] HEMOGLOBIN A1c (test code = 14287) 5.7 % Jaden PonceLIPID [id number] 00:00:00* Test Item Value Reference Range Interpretation Comme nts CHOLESTEROL (test code = 2210) 166 MG/DL TRIGLYCERIDES (test code = 2232) 209 MG/DL HDL CHOLESTEROL (test code = 2220) 47 MG/DL CALC LDL CHOL (test code = 2237) 89 MG/DL RISK RATIO LDL/HDL (test cod e = 2238) 1.89 RATIO Jaden PonceCOMPREHENSIVE METABOLIC [id number] 00:00:00* Test Item Value Reference Range Interpretation Comme nts GLUCOSE (test code = 2217) 106 MG/DL BUN (test code = 2208) 10 MG/DL CREATININE (test code = 2214) 0.64 MG/DL eGFR AMER. (test cod e = 61674) 110 ML/MIN/1.73 eGFR NON- AMER. (test code = 03757) 95 ML/MIN/1.73 CALC BUN/CREAT (test code = [...] (test code = 2219) 19 U/L Jaden [id number] 00:00:00* Test Item Value Reference Range Interpretation Comme nts TSH, THIRD GENERATION (test code = 2821) 1.690 UIU/ML Jaden PonceCBC W/AUTO [id number] 00:00:00* Test Item Value Reference Range Interpretation [...] code = 1015) 249 K/UL Jaden PonceHEMOGLOBIN [id number] 00:00:00* Test Item Value Reference Range Interpretation Comme nts HEMOGLOBIN A1c (test code = 70189) 5.7 % Jaden PonceLIPID [id number] 00:00:00* Test Item Value Reference Range Interpretation Comme nts CHOLESTEROL (test code = 2210) 166 MG/DL TRIGLYCERIDES (test code = 2232) 209 MG/DL HDL CHOLESTEROL (test code = 2220) 47 MG/DL CALC LDL CHOL (test code = 2237) 89 MG/DL RISK RATIO LDL/HDL (test cod e = 2238) 1.89 RATIO Jaden PonceCOMPREHENSIVE METABOLIC [id number] 00:00:00* Test Item Value Reference Range Interpretation Comme nts GLUCOSE (test code = 2217) 106 MG/DL BUN (test code = 2208) 10 MG/DL CREATININE (test code = 2214) 0.64 MG/DL eGFR AMER. (test cod e = 74215) 110 ML/MIN/1.73 eGFR NON- AMER. (test code = 47897) 95 ML/MIN/1.73 CALC BUN/CREAT (test code = [...] (test code = 2219) 19 U/L Jaden [id number] 00:00:00* Test Item Value Reference Range Interpretation Comme adrián TSH, THIRD GENERATION (test code = 2821) 1.690 UIU/ML Jaden PonceCBC W/AUTO [id number] 00:00:00* Test Item Value Reference Range Interpretation Comme adrián WBC (test code = 1001) 8.1 K/UL [...] (test code = 1015) 249 K/UL Jaden Betancourt [facility] W/AUTO [id number] 00:00:00* Test Item Value Reference Range Interpretation [...] (test code = 1015) 249 K/UL HEMOGLOBIN [id number] 00:00:00* Test Item Value Reference Range Interpretation Comme nts HEMOGLOBIN A1c (test code = 45443) 5.7 % LIPID [id number] 00:00:00* Test Item Value Reference Range Interpretation Comme nts CHOLESTEROL (test code = 2210) 166 MG/DL TRIGLYCERIDES (test code = 2232) 209 MG/DL HDL CHOLESTEROL (test code = 2220) 47 MG/DL CALC LDL CHOL (test code = 2237) 89 MG/DL RISK RATIO LDL/HDL (test cod e = 2238) 1.89 RATIO COMPREHENSIVE METABOLIC [id number] 00:00:00* Test Item Value Reference Range Interpretation Comme nts GLUCOSE (test code = 2217) 106 MG/DL BUN (test code = 2208) 10 MG/DL CREATININE (test code = 2214) 0.64 MG/DL eGFR AMER. (test cod e = 01086) 110 ML/MIN/1.73 eGFR NON- AMER. (test code = 34513) 95 ML/MIN/1.73 CALC BUN/CREAT (test code = [...] 0.3 MG/DL ALKALINE PHOSPHATASE (test code = 4) 111 U/L AST (test code = 2218) 16 U/L ALT (test code = 2219) 19 U/L [id number] 00:00:00* Test Item Value Reference Range Interpretation Comme nts TSH, THIRD GENERATION (test code = 2821) 1.690 UIU/ML CBC W/AUTO [id number] 00:00:00* Test Item Value Reference Range Interpretation [...] (test code = 1015) 249 K/UL HEMOGLOBIN [id number] 00:00:00* Test Item Value Reference Range Interpretation Comme nts HEMOGLOBIN A1c (test code = 70367) 5.7 % LIPID [id number] 00:00:00* Test Item Value Reference Range Interpretation Comme nts CHOLESTEROL (test code = 2210) 166 MG/DL TRIGLYCERIDES (test code = 2232) 209 MG/DL HDL CHOLESTEROL (test code = 2220) 47 MG/DL CALC LDL CHOL (test code = 2237) 89 MG/DL RISK RATIO LDL/HDL (test cod e = 2238) 1.89 RATIO COMPREHENSIVE METABOLIC [id number] 00:00:00* Test Item Value Reference Range Interpretation Comme nts GLUCOSE (test code = 2217) 106 MG/DL BUN (test code = 2208) 10 MG/DL CREATININE (test code = 2214) 0.64 MG/DL eGFR AMER. (test cod e = 96174) 110 ML/MIN/1.73 eGFR NON- AMER. (test code = 07980) 95 ML/MIN/1.73 CALC BUN/CREAT (test code = [...] ALT (test code = 2219) 19 U/L [id number] 00:00:00* Test Item Value Reference Range Interpretation Comme nts TSH, THIRD GENERATION (test code = 2821) 1.690 UIU/ML CBC W/AUTO [id number] 00:00:00* Test Item Value Reference Range Interpretation [...] (test code = 1015) 249 K/UL HEMOGLOBIN [id number] 00:00:00* Test Item Value Reference Range Interpretation Comme nts HEMOGLOBIN A1c (test code = 81676) 5.7 % LIPID [id number] 00:00:00* Test Item Value Reference Range Interpretation Comme nts CHOLESTEROL (test code = 2210) 166 MG/DL TRIGLYCERIDES (test code = 2232) 209 MG/DL HDL CHOLESTEROL (test code = 2220) 47 MG/DL CALC LDL CHOL (test code = 2237) 89 MG/DL RISK RATIO LDL/HDL (test cod e = 2238) 1.89 RATIO COMPREHENSIVE METABOLIC [id number] 00:00:00* Test Item Value Reference Range Interpretation Comme nts GLUCOSE (test code = 2217) 106 MG/DL BUN (test code = 2208) 10 MG/DL CREATININE (test code = 2214) 0.64 MG/DL eGFR AMER. (test cod e = 89154) 110 ML/MIN/1.73 eGFR NON- AMER. (test code = 02238) 95 ML/MIN/1.73 CALC BUN/CREAT (test code = [...] ALT (test code = 2219) 19 U/L [id number] 00:00:00* Test Item Value Reference Range Interpretation Comme nts TSH, THIRD GENERATION (test code = 2821) 1.690 UIU/ML CBC W/AUTO [id number] 00:00:00* Test Item Value Reference Range Interpretation [...] (test code = 1015) 249 K/UL HEMOGLOBIN [id number] 00:00:00* Test Item Value Reference Range Interpretation Comme nts HEMOGLOBIN A1c (test code = 23407) 5.7 % LIPID [id number] 00:00:00* Test Item Value Reference Range Interpretation Comme nts CHOLESTEROL (test code = 2210) 166 MG/DL TRIGLYCERIDES (test code = 2232) 209 MG/DL HDL CHOLESTEROL (test code = 2220) 47 MG/DL CALC LDL CHOL (test code = 2237) 89 MG/DL RISK RATIO LDL/HDL (test cod e = 2238) 1.89 RATIO COMPREHENSIVE METABOLIC [id number] 00:00:00* Test Item Value Reference Range Interpretation Comme nts GLUCOSE (test code = 2217) 106 MG/DL BUN (test code = 2208) 10 MG/DL CREATININE (test code = 2214) 0.64 MG/DL eGFR AMER. (test cod e = 70158) 110 ML/MIN/1.73 eGFR NON- AMER. (test code = 84437) 95 ML/MIN/1.73 CALC BUN/CREAT (test code = 2235) 16 RATIO SODIUM (test code = 2231) 141 MEQ/L POTASSIUM (test code = 2228) 3.9 MEQ/L CHLORIDE (test code = 2215) 98 MEQ/L CARBON DIOXIDE (test code = 2206) 30 MEQ/L CALCIUM (test code = 2209) 10.1 MG/DL PROTEIN, TOTAL (test code = 222) 7.7 G/DL ALBUMIN (test code = 2201) 5.2 G/DL CALC GLOBULIN (test code = 2240) 2.5 G/DL CALC A/G RATIO (test code = 2234) 2.1 RATIO BILIRUBIN, TOTAL (test code = 2207) 0.3 MG/DL ALKALINE PHOSPHATASE (test code = 2204) 111 U/L AST (test code = 2218) 16 U/L ALT (test code = 2219) 19 U/L [id number] 00:00:00* Test Item Value Reference Range Interpretation Comme nts TSH, THIRD GENERATION (test code = 2821) 1.690 UIU/ML Notes Date/Time Note [facility]2024-06-27 00:00:00 [facility]
[2024-07-20] MEDS ORDERED: ZIPRASIDONE MESYLA 20 MG/VIAL IM ONE (23:22)
[2024-07-20] MEDS ORDERED: IPRATROPIUM BROM 0.5MG/2.5ML ONE (23:23)
[2024-07-20] MEDS ORDERED: ALBUTEROL 2.5 MG/3 ML NEB SOL ONE (23:23)
[2024-07-20] MEDS ORDERED: METHYLPREDNISOLONE 125 MG INJ ONE (23:24)
[2024-07-20] MEDS ORDERED: ONDANSETRON 4 MG/2 ML VIAL ONE (23:24)
[2024-07-20] MEDS ORDERED: LORazepam 2 MG/ML VIAL ONE (23:25)
[2024-07-20] MEDS ORDERED: Magnesium Sulfate 2gm IVPB 2 G/50 ML BAG IV ONE ×2 (23:26→23:40)
[2024-07-20] MEDS ORDERED: NA CHLORIDE 0.9% 1,000 ML ONE (23:27)
[2024-07-20 23:35] LABS: Absolute Lymphocytes (CBC) 1.2 K/uL (0.7-4.9); Absolute Monocytes 1.8 K/uL (0.1-1.3); Absolute Neutrophil 15.6 K/uL (1.8-8.0); Basophils % 0.1 % (0-1.3); Eosinophils % 0.1 % (0-4.4); Hematocrit 43.5 % (36.0-45.0); Hemoglobin 15.1 g/dL (12.0-15.0); Lymphocytes % 6.5 % (15.3-44.8); MCH 32.5 pg (27.0-35.0); MCHC 34.7 g/dL (32.0-36.0); MCV 93.8 fL (80-100); MPV 7.2 fL (7.6-11.3); Monocytes % 9.6 % (3.3-12.3); Neutrophils % 83.7 % (41.7-73.7); Nucleated RBC Absolute Count 0.1 (0-0); Nucleated Red Blood Cells % 0.4 % (0-0); PT Prothrombin Time 11.9 SECONDS (10.0-13.0); Platelets 318 thou/uL (152-406); Protime INR 1.05; RBC Red Blood Cell Count 4.64 M/uL (3.86-4.86); Red Cell Distribution Width 13.3 % (12.1-15.2)
[2024-07-21 00:08] LABS: Albumin 3.9 g/dL (3.4-5.0); Albumin/Globulin Ratio 1.1 (1.1-1.8); Anion Gap 20.2 mEq/L (5.0-15.0); Bilirubin Direct 0.6 mg/dL (0-0.2); Bilirubin Indirect, Calculated 1.4 mg/dL (0.2-0.8); Globulin 3.5 g/dL (2.3-3.5); Magnesium 1.4 mg/dL (1.6-2.4); Potassium 3.2 mEq/L (3.5-5.1); Protein, Total 7.4 g/dL (6.4-8.2)
[2024-07-21 00:11] LABS: Troponin High Sensitivity 65.5 pg/mL (<58.9)
[2024-07-21 00:55] LABS: Anion Gap 13.5 mEq/L (5.0-15.0)
[2024-07-21 00:58] LABS: Potassium 2.5 mEq/L (3.5-5.1)
[2024-07-21] MEDS ORDERED: CEFTRIAXONE 1000 MG/VIAL ONE (01:15)
[2024-07-21] MEDS ORDERED: NA CHLORIDE 0.9% 50 ML ONE (01:15)
[2024-07-21] MEDS ORDERED: KCL 20 MEQ/100 mL IVPB 100 ML IV ONE (01:15)
--- NOTE | 2024-07-21 02:10 | ER ---
Nurse's Notes [facility] Name: Delmi Pool Age: 69 yrs Sex: Female : 1955 Arrival Date: 07/20/2024 Time: 22:11 Bed 14 Private MD: Diagnosis: Hypo-osmolality and hyponatremia;COPD with acute exacerbation, bilateral expiratory wheezing, hyponatremia, acute hyperactive delirium, agitation requiring sedation Presentation: 07/20 22:35 Chief complaint: EMS states: family called because the patient has shortness of breath rg5 for 3 days now \T\ getting worst. 22:35 Coronavirus screen: Client denies travel out of the [place] in the last 14 days. Ebola rg5 Screen: Patient negative for fever greater than or equal to 101.5 degrees Fahrenheit, and additional compatible Ebola Virus Disease symptoms. Initial Sepsis Screen: Does the patient meet any 2 criteria? No. Patient's initial sepsis screen is negative. Does the patient have a suspected source of infection? No. Patient's initial sepsis screen is negative. Risk Assessment: Do you want to hurt yourself or someone else? Patient reports no desire to harm self or others. Onset of symptoms was July 20, 2024. 22:35 Method Of Arrival: EMS: [facility] rg5 22:35 Acuity: GILBERTO 3 rg5 Triage Assessment: 22:35 General: Appears uncomfortable, Behavior is anxious, restless. Pain: Denies pain. rg5 Respiratory: Reports shortness of breath air hunger Onset: The symptoms/episode began/occurred today, the patient has moderate shortness of breath. Historical: - Allergies: 22:35 Sulfa (Sulfonamide Antibiotics); rg5 22:35 Toradol; rg5 22:35 tramadol; rg5 - PMHx: 22:35 diabetes mellitus; Hypercholesterolemia; Hypertensive disorder; neuropathy; rg5 - PSHx: 22:35 Appendectomy; Bowel Retracement; Cholecystectomy; section; rg5 - Immunization history:: Adult Immunizations unknown. - Infectious Disease History:: Denies. - Social history:: Smoking status: unknown. - Family history:: not pertinent. Screenin/05 01:37 [facility] ED Fall Risk Assessment (Adult) History of falling in the last 3 months, rg5 including since admission No falls in past 3 months (0 pts) Confusion or Disorientation Yes (5 pts) Intoxicated or Sedated No (0 pts) Impaired Gait Yes (1 pt) Mobility Assist Device Used Yes (1 pt) Altered Elimination Yes (1 pt) Score/Fall Risk Level 3 or more points = High Risk Oriented to surroundings, Maintained a safe environment, Hourly rounding (assess needs \T\ fall precautionary measures) done, Used ambulatory aids as needed (educated on \T\ assisted with). Abuse screen: Denies threats or abuse. Nutritional screening: No deficits noted. Tuberculosis screening: No symptoms or risk factors identified. Assessment: 07/20 22:32 General: Appears uncomfortable, Behavior is anxious, restless. Pain: Denies pain. rg5 Neuro: Level of Consciousness is alert, confused, Oriented to person, Cardiovascular: Denies chest pain, Patient's skin is warm and dry. Rhythm is sinus rhythm. Respiratory: Airway Trachea midline Respiratory effort is labored, gasping, Respiratory pattern is hyperventilation Breath sounds with wheezes the patient has moderate shortness of breath. GI: Abdomen is round non-distended. : No signs and/or symptoms were reported regarding the genitourinary system. EENT: No deficits noted. Derm: Skin is intact, Skin is dry, Skin is normal, Skin temperature is warm. Musculoskeletal: Circulation, motion, and sensation intact. Range of motion: intact in all extremities. 23:00 Reassessment: No changes from previously documented assessment. Patient and/or family rg5 updated on plan of care and expected duration. Pain level reassessed. 07/21 00:00 Reassessment: No changes from previously documented assessment. Patient and/or family rg5 updated on plan of care and expected duration. Pain level reassessed. 02:13 Reassessment: No changes from previously documented assessment. Patient and/or family rg5 updated on plan of care and expected duration. Pain level reassessed. 10:32 Reassessment: HALEIGH MENDIOLA [id number]. db Vital Signs: 07/20 22:45 BP 152 / 85; Pulse 104; Resp 21; Pulse Ox 100% on R/A; Weight 53.07 kg; Height 5 ft. 0 rg5 in. ; Pain 0/10; 23:36 BP 132 / 68; Pulse 86; Resp 20; Pulse Ox 98% ; rg5 03/05 00:36 BP 106 / 60; Pulse 75; Resp 19; Pulse Ox 100% on 3 lpm NC; Pain 0/10; rg5 01:29 BP 139 / 67; Pulse 82; Resp 19; Temp 98; Pulse Ox 95% on R/A; Pain 0/10; rg5 07/20 22:45 Body Mass Index 22.85 (53.07 kg, 152.4 cm) rg5 07/20 22:45 Pain Scale: Adult rg5 07/21 00:36 Pain Scale: Adult rg5 01:29 Pain Scale: Adult rg5 Mayte Coma Score: 05:57 Eye Response: spontaneous(4). Motor Response: obeys commands(6). Verbal Response: sp4 oriented(5). Total: 15. ED Course: 07/20 22:31 Patient arrived in ED. sp4 22:31 Zheng Khan MD is Attending Physician. sp4 22:32 No provider procedures requiring assistance completed. rg5 22:32 Patient has correct armband on for positive identification. Placed in gown. Bed in low rg5 position. Call light in reach. Side rails up X 1. Door closed. Noise minimized. Warm blanket given. Verbal reassurance given. 22:32 Client placed on continuous cardiac and pulse oximetry monitoring. NIBP monitoring rg5 applied. cardiac monitor technician on. Pulse ox on. NIBP on. 22:34 Radiology exam delayed due to lab results not completed at this time. (BUN/Creatinine) nj IV insertion attempt and/or patient not having appropriate IV at this time. 22:34 Nakul Jean, RN is Primary Nurse. rg5 22:35 Arm band placed on right wrist. EKG completed in triage. Results shown to MD. rg5 22:43 XRAY Chest (1 view) In Process Unspecified. EDMS 23:16 Triage completed. rg5 23:35 Radiology exam delayed due to lab results not completed at this time. (BUN/Creatinine). nj 23:35 Radiology exam delayed due to IV insertion attempt and/or patient not having nj appropriate IV at this time. 07/21 00:20 Inserted saline lock: 20 gauge in left antecubital area, using aseptic technique. Blood vk collected. 00:21 Initial lab(s) drawn, by me, sent to lab. vk 00:47 CT Chest For PE Angio In Process Unspecified. EDMS 02:08 Rochelle Soler MD is Hospitalizing Provider. sp4 02:13 Patient admitted, IV remains in place. IV discontinued, intact, No redness/swelling at rg5 site. 02:14 Provided Education on: needs for admit. [facility] 09:33 Ptt, Activated Sent. rk3 Administered Medications: 07/19 23:36 Drug: Ativan IVP 1 mg IVP once Route: IVP; Site: right antecubital; [facility] 07/20 23:00 Drug: Geodon IM 20 mg IM once Route: IM; Site: right deltoid; [facility] 07/21 07:27 Follow up: Response: No adverse reaction [facility] 07/20 23:00 Drug: NS 0.9% IV 1000 ml IV at 125 ml/hr Per protocol; to be given as a bolus over 60 rg5 minutes Route: IV; Rate: 125 ml/hr; Site: left antecubital; 23:35 Drug: MethylPrednisoLONE IVP 125 mg IVP once Route: IVP; Site: left antecubital; [facility] 23:35 Drug: Ondansetron IVP 4 mg IVP once; over 2 minutes Route: IVP; Site: left antecubital; rg5 23:36 Drug: DuoNeb Nebulize (3:1) (2.5 mg - 0.5 mg) 3 ml Nebulizer once Route: Nebulizer; [facility] 23:50 Drug: Magnesium Sulfate IVPB 2 grams IVPB once over 2 hrs Route: IVPB; Infused Over: 2 rg5 hrs; Site: left antecubital; 07/21 00:20 Drug: NS 0.9% IV 500 ml 500 ml IV at 1 bolus once; to be given as a bolus over 30 rg5 minutes Volume: 500 ml; Route: IV; Rate: 1 bolus; Site: left antecubital; 01:15 Follow up: IV Status: Completed infusion; IV Intake: 500ml rg5 01:21 Drug: Rocephin - Rocephin (cefTRIAXone) IVPB 1 grams IVPB once over 30 mins; (mix in 50 rg5 mL NS) Route: IVPB; Infused Over: 30 mins; Site: left antecubital; 02:39 Follow up: IV Status: Completed infusion; IV Intake: 50ml rg5 01:29 Drug: Potassium Chloride IV 20 mEq IV at calculated rate once; administer over 1-2 rg5 hours Route: IV; Rate: calculated rate; Site: left antecubital; 02:30 Drug: Geodon IM 20 mg IM once Route: IM; Site: left deltoid; rg5 04:11 Follow up: Response: No adverse reaction rg5 04:00 Drug: Sodium Chloride IV 3 % 100 ml 500 ml IV at calculated rate once; *specify rate* rg5 Volume: 500 ml; Route: IV; Rate: calculated rate; Site: left antecubital; 05:40 Drug: Ativan IVP 2 mg IVP once Route: IVP; Site: left antecubital; rg5 07:30 Follow up: Response: No adverse reaction db 06:34 Drug: NS 0.9% with KCl IV 20 mEq/L 1000 ml IV at 100 ml/hr continuous Route: IV; Rate: rg5 100 ml/hr; Site: left antecubital; 10:00 Follow up: Response: No adverse reaction; IV Status: Completed infusion db 06:35 Not Given (Duplicate Order): ns 0.9% with kcl40 meq/l 1000 ml IV at 100 ml/hr continuousrg5 Medication: 07/20 22:32 VIS not applicable for this client. rg5 Intake: 07/21 01:15 IV: 500ml; Total: 500ml. rg5 02:39 IV: 50ml; Total: 550ml. rg5 Outcome: 02:09 Decision to Hospitalize by Provider. sp4 02:13 Admitted to ER Hold. Please see [facility] for further documentation. rg5 02:13 Condition: stable 02:13 Instructed on the need for admit, 14:04 Patient left the ED. ll1 Signatures: Dispatcher [employer] EDMS Lei Valente Lynsay RN RN ll1 Montserrat Chavez RN RN Zheng Pagan MD MD sp4 Kruse, Vivian vk Gallardo, Rommel, RN RN rg5 Santana Stevens rk3 Corrections: (The following items were deleted from the chart) 01:33 01:32 BP 106 / 60; Pulse 75bpm; Resp 19bpm; Pulse Ox 100% 3 lpm Nasal Cannula; Pain rg5 0/10, Adult; rg5 01:36 04 22:45 BP 152 / 85; Pulse 104bpm; Resp 21bpm; Pulse Ox 100% RA; Pain 0/10, Adult; rg5 rg5 07/21 02:40 01:15 IV Status: Completed infusion; IV Intake: 500ml rg5 rg5
--- NOTE | 2024-07-21 02:10 | EDPHYS ---
Physician Documentation [facility] Name: Delmi Pool Age: 69 yrs Sex: Female : 1955 Arrival Date: 07/20/2024 Time: 22:11 Bed 14 Private MD: ED Physician Zheng Khan HPI: 07/21 01:41 This 69 yrs old Female presents to ER via EMS with complaints of Shortness Of sp4 Breath. 05:57 69-year-old female history diabetes mellitus, hypercholesterolemia, hypertension sp4 neuropathy presents with EMS for acute agitation. Patient was found agitated at home with associated diffuse wheezing. History of prior hyponatremia. . Historical: - Allergies: 07/20 22:35 Sulfa (Sulfonamide Antibiotics); rg5 22:35 Toradol; rg5 22:35 tramadol; rg5 - PMHx: 22:35 diabetes mellitus; Hypercholesterolemia; Hypertensive disorder; neuropathy; rg5 - PSHx: 22:35 Appendectomy; Bowel Retracement; Cholecystectomy; section; rg5 - Immunization history:: Adult Immunizations unknown. - Infectious Disease History:: Denies. - Social history:: Smoking status: unknown. - Family history:: not pertinent. ROS: 07/21 05:57 Constitutional: Positive for acute agitation and mental status changes , positive for sp4 wheezing All other systems are negative, Unable to obtain ROS due to altered mental status, Exam: 05:57 Constitutional: This is a well developed, well nourished patient who is awake, alert, sp4 and in no acute distress. Head/Face: Normocephalic, atraumatic. Eyes: Pupils equal round and reactive to light, extra-ocular motions intact. Lids and lashes normal. Conjunctiva and sclera are not injected. Cornea within normal limits. Periorbital areas with no swelling, redness, or edema. ENT: Nares patent. No nasal discharge, no septal abnormalities noted. Tympanic membranes are normal and external auditory canals are clear. Oropharynx with no redness, swelling, or masses, exudates, or evidence of obstruction, uvula midline. Dry mouth Neck: Trachea midline, no thyromegaly or masses palpated, and no cervical lymphadenopathy. Supple, full range of motion without nuchal rigidity, or vertebral point tenderness. Chest/axilla: Normal chest wall appearance and motion. Nontender with no deformity. No lesions are appreciated. Cardiovascular: Regular rate and rhythm with a normal S1 and S2. No gallops, murmurs, or rubs. Normal PMI, no JVD. No pulse deficits. Respiratory: Lungs have equal breath sounds bilaterally, positive bilateral expiratory wheezing Abdomen/GI: Soft, with normal bowel sounds. No distension or tympany. No guarding or rebound. No evidence of tenderness throughout. Back: No spinal tenderness. No costovertebral tenderness. Skin: Warm, dry with normal turgor. Normal color with no rashes, no lesions, and no evidence of cellulitis. MS/ Extremity: Pulses equal, no cyanosis. Neurovascular intact. Full, normal range of motion. Neuro: Awake , acutely agitated with signs of hyperactivity delirium, not oriented. Psych: Exam not possible 05:57 ECG was reviewed by the Attending Physician. EKG 0016 borderline EKG normal sinus rhythm rate 78 Vital Signs: 07/20 22:45 BP 152 / 85; Pulse 104; Resp 21; Pulse Ox 100% on R/A; Weight 53.07 kg; Height 5 ft. 0 rg5 in. ; Pain 0/10; 23:36 BP 132 / 68; Pulse 86; Resp 20; Pulse Ox 98% ; [facility] 07/21 00:36 BP 106 / 60; Pulse 75; Resp 19; Pulse Ox 100% on 3 lpm NC; Pain 0/10; rg5 01:29 BP 139 / 67; Pulse 82; Resp 19; Temp 98; Pulse Ox 95% on R/A; Pain 0/10; [facility] 07/20 22:45 Body Mass Index 22.85 (53.07 kg, 152.4 cm) [facility] 07/20 22:45 Pain Scale: Adult rg5 07/21 00:36 Pain Scale: Adult rg5 01:29 Pain Scale: Adult rg5 Glide Coma Score: 05:57 Eye Response: spontaneous(4). Motor Response: obeys commands(6). Verbal Response: sp4 oriented(5). Total: 15. Procedures: 06:02 Central Line: the site was prepped with Betadine, in sterile fashion, a triple lumen sp4 catheter was inserted, in the right internal jugular vein, in 1 attempts. placement was verified, by CXR, by blood return, Ultrasound-guided central line, the site was dressed with 4X4s, Tegaderm, using sterile technique, the patient tolerated the procedure, well, Central line placed for hypertonic saline infusion. MDM: 07/20 22:51 Medical Screening Exam initiated sp4 07/21 01:42 ED course: EXAM: XR Chest, 1 View CLINICAL HISTORY: The patient is 69 years old and is sp4 Female; CHEST PAIN TECHNIQUE: Frontal view of the chest. COMPARISON: No relevant prior studies available. FINDINGS: LUNGS: Unremarkable. No consolidation. PLEURAL SPACE: Unremarkable. No pneumothorax. HEART: Unremarkable. No cardiomegaly. MEDIASTINUM: Unremarkable. Normal mediastinal contour. BONES/JOINTS: Degenerative change of the bones is noted. No acute fracture. VASCULATURE: Atherosclerosis of the aorta is present. UPPER ABDOMEN: Unremarkable as visualized. IMPRESSION: No acute cardiopulmonary process. . 02:06 ED course: EXAM: CTAngiography Chest With Intravenous Contrast CLINICAL HISTORY: The sp4 patient is 69 years old and is Female; COPD TECHNIQUE: Axial computed tomographic angiography images of the chest with intravenous contrast. Sagittal and coronal reformatted images were created and reviewed. This CT exam was performed using one or more of the following dose reduction techniques: automated exposure control, adjustment of the mA and/or kV according to patient size, and/or use of iterative reconstruction technique. MIP reconstructed images were created and reviewed. COMPARISON: No relevant prior studies available. FINDINGS: TRACHEA: The tracheobronchial tree is patent. PULMONARYARTERIES: There are no obvious filling defects identified within the pulmonary arteries to suggest pulmonary embolism. AORTA: No acute findings. No thoracic aortic aneurysm. LUNGS: The lungs are hyperinflated with emphysematous change most prominent in the upper lung zones. Following the hemidiaphragm is noted. There is no lobar consolidation. PLEURAL SPACE: Unremarkable. No significant effusion. No pneumothorax. HEART: A trace pericardial effusion is present. No cardiomegaly. No evidence of RV dysfunction. THYROID: The right lobe of the thyroid is enlarged and heterogeneous. A 2.3 cm right thyroid nodule is noted. BONES/JOINTS: No acute fracture. No dislocation. SOFT TISSUES: Unremarkable. LYMPH NODES: Unremarkable. No enlarged lymph nodes. IMPRESSION: 1. No evidence of pulmonary embolism. 2. Mild emphysema. 3. Right thyroid nodule. Recommend non-emergent thyroid ultrasound. RECOMMENDATION: Given the presence of pulmonary emphysema, an independent risk factor for lung cancer, consider evaluating the patient for a low-dose CT lung cancer screening program. . 06:02 Differential diagnosis: Anemia asthma, Bronchitis pneumonia, Psychogenic pulmonary sp4 edema. Data reviewed: vital signs, nurses notes, EMS record, old medical records, lab test result(s), EKG, radiologic studies, CT scan. Consideration of Admission/Observation Patient was admitted/placed on observation. Escalation of care including admission/observation considered. Management of patient was discussed with the following: Hospitalist: Ryder RYAN . Astronomy Professor: Deuce RYAN Nephrology . ED course: EXAM: CTAngiography Chest With Intravenous Contrast CLINICAL HISTORY: The patient is 69 years old and is Female; COPD TECHNIQUE: Axial computed tomographic angiography images of the chest with intravenous contrast. Sagittal and coronal reformatted images were created and reviewed. This CT exam was performed using one or more of the following dose reduction techniques: automated exposure control, adjustment of the mA and/or kV according to patient size, and/or use of iterative reconstruction technique. MIP reconstructed images were created and reviewed. COMPARISON: No relevant prior studies available. FINDINGS: TRACHEA: The tracheobronchial tree is patent. PULMONARYARTERIES: There are no obvious filling defects identified within the pulmonary arteries to suggest pulmonary embolism. AORTA: No acute findings. No thoracic aortic aneurysm. LUNGS: The lungs are hyperinflated with emphysematous change most prominent in the upper lung zones. Following the hemidiaphragm is noted. There is no lobar consolidation. PLEURAL SPACE: Unremarkable. No significant effusion. No pneumothorax. HEART: A trace pericardial effusion is present. No cardiomegaly. No evidence of RV dysfunction. THYROID: The right lobe of the thyroid is enlarged and heterogeneous. A 2.3 cm right thyroid nodule is noted. BONES/JOINTS: No acute fracture. No dislocation. SOFT TISSUES: Unremarkable. LYMPH NODES: Unremarkable. No enlarged lymph nodes. IMPRESSION: 1. No evidence of pulmonary embolism. 2. Mild emphysema. 3. Right thyroid nodule. Recommend non-emergent thyroid ultrasound. RECOMMENDATION: Given the presence of pulmonary emphysema, an independent risk factor for lung cancer, consider evaluating the patient for a low-dose CT lung cancer screening program. . 07/20 22:32 Order name: Basic Metabolic Panel; Complete Time: 00:19 sp4 07/20 22:32 Order name: CBC with Diff; Complete Time: 00:19 sp4 07/20 22:32 Order name: LFT's; Complete Time: 00:19 sp4 07/20 22:32 Order name: Magnesium; Complete Time: 00:19 sp4 07/20 22:32 Order name: NT PRO-BNP; Complete Time: 00:19 sp4 07/20 22:32 Order name: PT-INR; Complete Time: 00:19 sp4 07/20 22:32 Order name: Troponin HS; Complete Time: 00:19 sp4 07/20 22:34 Order name: ABG; Complete Time: 20:28 sp4 07/21 00:19 Order name: BMP; Complete Time: 01:41 sp4 07/21 00:20 Order name: Blood Culture Adult (2) sp4 07/21 02:19 Order name: Urine Creatinine; Complete Time: 05:38 sp4 07/21 02:19 Order name: Urine Osmolality; Complete Time: 05:38 sp4 07/21 02:19 Order name: Urine Potassium Random; Complete Time: 05:38 sp4 07/21 02:19 Order name: Urine Sodium Random; Complete Time: 05:38 sp4 07/21 02:19 Order name: Urine Drug Screen; Complete Time: 05:38 sp4 07/21 02:55 Order name: Basic Metabolic Panel; Complete Time: 20:28 EDMS 07/21 02:55 Order name: Lactate w/ 2H reflex if indic.; Complete Time: 20:28 EDMS 07/21 02:55 Order name: Thyroid Stimulating Hormone; Complete Time: 20:28 EDMS 07/21 02:55 Order name: Urinalysis w/ reflexes EDMS 07/21 02:55 Order name: Troponin High Sensitivity EDMS 07/21 02:55 Order name: Troponin High Sensitivity; Complete Time: 20:28 EDMS 07/21 02:55 Order name: Troponin High Sensitivity; Complete Time: 20:28 EDMS 07/21 02:55 Order name: Troponin High Sensitivity; Complete Time: 20:28 EDMS 07/21 02:55 Order name: Sodium Level EDMS 07/21 02:57 Order name: High Sensitivity-CRP EDMS 07/21 02:58 Order name: Procalcitonin; Complete Time: 20:28 EDMS 07/21 05:57 Order name: Potassium; Complete Time: 20:28 EDMS 07/21 07:22 Order name: Ptt, Activated db 07/21 08:34 Order name: Sodium Level; Complete Time: 20:28 EDMS 07/21 08:38 Order name: Glucose, Ancillary Testing; Complete Time: 20:28 EDMS 07/21 09:55 Order name: PTT, Activated Partial Thromb; Complete Time: 20:28 EDMS 07/21 11:21 Order name: C-Reactive Protein; Complete Time: 20:28 EDMS 07/21 11:57 Order name: Basic Metabolic Panel; Complete Time: 20:28 EDMS 07/20 22:32 Order name: XRAY Chest (1 view); Complete Time: 20:28 sp4 07/20 22:33 Order name: CT Chest For PE Angio; Complete Time: 05:38 sp4 07/21 06:33 Order name: CT; Complete Time: 20:28 EDMS 07/21 06:47 Order name: RAD; Complete Time: 20:28 EDMS 07/21 02:55 Order name: CONS Physician Consult EDMS 07/20 22:32 Order name: Cardiac monitoring; Complete Time: 23:59 sp4 07/20 22:32 Order name: EKG - Nurse/Tech; Complete Time: 00:18 sp4 07/20 22:32 Order name: IV Saline Lock; Complete Time: 23:59 sp4 07/20 22:32 Order name: Labs collected and sent; Complete Time: 23:59 sp4 07/20 22:32 Order name: O2 Per Protocol; Complete Time: 23:59 sp4 07/20 22:32 Order name: O2 Sat Monitoring; Complete Time: 23:59 sp4 07/21 05:38 Order name: Central Line Dressing Kit; Complete Time: 06:34 sp4 07/21 05:38 Order name: Central Line Kit; Complete Time: 06:34 sp4 07/21 05:38 Order name: Chlorhexidine prep; Complete Time: 06:34 sp4 07/21 05:38 Order name: Consent for central line completed; Complete Time: 06:34 sp4 07/21 05:38 Order name: Line Caps x3; Complete Time: 06:34 sp4 07/21 05:38 Order name: NS Flushes x3; Complete Time: 06:34 sp4 07/21 05:38 Order name: Sterile Gloves; Complete Time: 06:34 sp4 07/21 05:38 Order name: Sterile Probe Cover; Complete Time: 06:34 sp4 07/21 08:22 Order name: Labs - recollect needed: recollect blue to fill to line; Complete Time: bd 10:02 EC:16 Rate is 78 beats/min. Rhythm is regular, Normal Sinus Rhythm. QRS [place] is Normal. [place] sp4 interval is normal. QRS interval is normal. QT interval is normal. No Q waves. T waves are Normal. No ST changes noted. Clinical impression: No evidence of ischemia. Interpreted by me. Reviewed by me. Administered Medications: 07/19 23:36 Drug: Ativan IVP 1 mg IVP once Route: IVP; Site: right antecubital; [facility] 07/20 23:00 Drug: Geodon IM 20 mg IM once Route: IM; Site: right deltoid; [facility] 07/21 07:27 Follow up: Response: No adverse reaction [facility] 07/20 23:00 Drug: NS 0.9% IV 1000 ml IV at 125 ml/hr Per protocol; to be given as a bolus over 60 rg5 minutes Route: IV; Rate: 125 ml/hr; Site: left antecubital; 23:35 Drug: MethylPrednisoLONE IVP 125 mg IVP once Route: IVP; Site: left antecubital; 5 23:35 Drug: Ondansetron IVP 4 mg IVP once; over 2 minutes Route: IVP; Site: left antecubital; 5 23:36 Drug: DuoNeb Nebulize (3:1) (2.5 mg - 0.5 mg) 3 ml Nebulizer once Route: Nebulizer; [facility] 23:50 Drug: Magnesium Sulfate IVPB 2 grams IVPB once over 2 hrs Route: IVPB; Infused Over: 2 rg5 hrs; Site: left antecubital; 07/21 00:20 Drug: NS 0.9% IV 500 ml 500 ml IV at 1 bolus once; to be given as a bolus over 30 rg5 minutes Volume: 500 ml; Route: IV; Rate: 1 bolus; Site: left antecubital; 01:15 Follow up: IV Status: Completed infusion; IV Intake: 500ml rg5 01:21 Drug: Rocephin - Rocephin (cefTRIAXone) IVPB 1 grams IVPB once over 30 mins; (mix in 50 rg5 mL NS) Route: IVPB; Infused Over: 30 mins; Site: left antecubital; 02:39 Follow up: IV Status: Completed infusion; IV Intake: 50ml rg5 01:29 Drug: Potassium Chloride IV 20 mEq IV at calculated rate once; administer over 1-2 rg5 hours Route: IV; Rate: calculated rate; Site: left antecubital; 02:30 Drug: Geodon IM 20 mg IM once Route: IM; Site: left deltoid; rg5 04:11 Follow up: Response: No adverse reaction rg5 04:00 Drug: Sodium Chloride IV 3 % 100 ml 500 ml IV at calculated rate once; *specify rate* rg5 Volume: 500 ml; Route: IV; Rate: calculated rate; Site: left antecubital; 05:40 Drug: Ativan IVP 2 mg IVP once Route: IVP; Site: left antecubital; rg5 07:30 Follow up: Response: No adverse reaction db 06:34 Drug: NS 0.9% with KCl IV 20 mEq/L 1000 ml IV at 100 ml/hr continuous Route: IV; Rate: rg5 100 ml/hr; Site: left antecubital; 10:00 Follow up: Response: No adverse reaction; IV Status: Completed infusion db 06:35 Not Given (Duplicate Order): ns 0.9% with kcl40 meq/l 1000 ml IV at 100 ml/hr continuousrg5 Disposition: 02:22 Critical Care:. sp4 Disposition Summary: 07/21/24 02:09 Hospitalization Ordered Notes: Hospitalization Status: Inpatient Admission sp4 Provider: Rochelle Soler sp4 Condition: Stable sp4 Problem: new sp4 Symptoms: have improved sp4 Bed/Room Type: Standard sp4 Location: Intensive Care Unit(07/21/24 12:56) Room Assignment: 1-(07/21/24 12:56) Diagnosis - Hypo-osmolality and hyponatremia sp4 - COPD with acute exacerbation, bilateral expiratory wheezing, hyponatremia, acute sp4 hyperactive delirium, agitation requiring sedation Forms: - Medication Reconciliation Form sp4 - SBAR form sp4 - Leadership Thank You Letter sp4 Critical care time excluding procedures: 02:22 Critical care time: Bedside Care: 36 minutes, Consultation: 12 minutes, Family sp4 Intervention: 12 minutes. Total time: 60 minutes Signatures: Dispatcher [employer] Rhona Neely Shelby RN RN ss Zheng Khan MD MD sp4 Kodi Denny, RN RN bm8 Nakul Jean, RN RN rg5 Montserrat Chavez RN db Corrections: (The following items were deleted from the chart) 07/20 22:32 22:32 BASIC METABOLIC PANEL+C.LAB.BRZ ordered. EDMS EDMS 22:32 22:32 CBC+H.LAB.BRZ ordered. EDMS EDMS 22:32 22:32 HEPATIC FUNCTION+C.LAB.BRZ ordered. EDMS EDMS 22:32 22:32 MAGNESIUM+C.LAB.BRZ ordered. EDMS EDMS 22:32 22:32 PROBNP+C.LAB.BRZ ordered. EDMS EDMS 22:32 22:32 PROTIME (+INR)+COAG.LAB.BRZ ordered. EDMS EDMS 22:32 22:32 Troponin High Sensitivity+C.LAB.BRZ ordered. EDMS EDMS 22:32 22:32 Chest Single View+RAD.RAD.BRZ ordered. EDMS EDMS 07/21 02:20 02:20 URINE CREATININE+CHEM UR.LAB.BRZ ordered. EDMS EDMS 02:20 02:20 Osmolality, Urine ordered. EDMS EDMS 02:20 02:20 URINE POTASSIUM RANDOM+CHEM UR.LAB.BRZ ordered. EDMS EDMS 02:20 02:20 URINE SODIUM RANDOM+CHEM UR.LAB.BRZ ordered. EDMS EDMS 02:20 02:20 URINE DRUG SCREEN+UC.LAB.BRZ ordered. EDMS EDMS 04:04 02:09 Telemetry/MedSurg (Inpatient) sp4 bm8 04:04 02:09 sp4 bm8 05:37 05:37 Chest Single View+RAD.RAD.BRZ ordered. EDMS EDMS 05:37 05:37 Head Brain Wo Cont+CT.RAD.BRZ ordered. EDMS EDMS 12:56 04:04 BR ER HOLD bm8 ss 12:56 04:04 ERHOLD- bm8 ss
[2024-07-21] MEDS ORDERED: ZIPRASIDONE MESYLA 20 MG/VIAL IM ONE (02:27)
--- NOTE | 2024-07-21 02:54 | P.HP ---
Certification for Inpatient With expected LOS: >2 Midnights Practitioner: I am a practitioner with admitting privileges, knowledge of patient current condition, hospital course, and medical plan of care. Services: Services provided to patient in accordance with Admission requirements found in Title 42 Section 412.3 of the Code of Federal Regulations Patient History Date of Service: 07/21/24 History of Present Illness: Is a 69-year-old with a past medical history of hypertension, esophagitis, gastroparesis who presented with acute metabolic encephalopathy. I am unable to obtain history at this time as patient is completely altered. She presented via EMS with complaints of shortness of breath. She has had previous visits to the emergency room. Her last visit was in late March 2024. At that time she had some suprapubic discomfort. History is limited as there is no one at bedside. Allergies ketorolac [From Toradol] Allergy (Verified 09/27/22 18:46) Itching/Hives/Rash Sulfa (Sulfonamide Antibiotics) Allergy (Verified 08/20/14 13:11) Itching/Hives/Rash tramadol Allergy (Verified 09/27/22 18:46) Shortness of breath Home Medications: Gabapentin 800 mg PO TID 06/10/23 Losartan Potassium 50 mg PO DAILY AFTER SUPPER 06/10/23 Ondansetron [Zofran (Odt)*] 4 mg PO Q6H PRN #20 tab 03/23/24 Sodium Chloride Tab [Sodium Chloride*] 1 gm PO BID #60 tab 04/16/24 Fluconazole 200 mg PO DAILY 8 Days #8 tab 04/21/24 Pantoprazole [Protonix Tab*] 40 mg PO DAILY 30 Days #30 tab 04/21/24 - Past Medical/Surgical History Diabetic: No -: NIDDM2 -: SBO -: GERD -: Chronic pain -: hysterectomy -: -: bowel resection -: Gallbladder Psychosocial/ Personal History: Lives in her home with her Son and his - Family History Father -: Other (see notes) Notes: thought to have from cancer Mother -: Other (see notes) Notes: spinal stenosis Brother -: Heart disease, Diabetes Notes: stents. stenosis Sister -: Blood disorders Notes: form of leukemia - Social History Alcohol use: No CD- Drugs: No Caffeine use: Yes Review of Systems is unable to be obtained Physical Examination - Physical Exam General: Alert, Delirious HEENT: Normocephalic Respiratory: Clear to auscultation bilaterally, Normal air movement Cardiovascular: No edema, Normal pulses Capillary refill: <2 Seconds Gastrointestinal: Normal bowel sounds Musculoskeletal: No clubbing, No swelling Integumentary: No rashes, No breakdown - Studies Laboratory Data (last 24 hrs) 07/21/24 07/20/24 07/20/24 00:31 23:20 23:20 WBC 18.60 H Hgb 15.1 H Hct 43.5 Plt Count 318 PT 11.9 INR 1.05 Sodium 110 L* Potassium 2.5 L* D BUN 8 Creatinine 0.44 L Glucose 143 H Magnesium Total Bilirubin AST ALT Alkaline Phosphatase 07/20/24 23:20 WBC Hgb Hct Plt Count PT INR Sodium 109 L* Potassium 3.2 L BUN 7 Creatinine 0.82 Glucose 157 H Magnesium 1.4 L Total Bilirubin 2.0 H AST 24 ALT 25 Alkaline Phosphatase 95 Assessment and Plan - Plan Acute metabolic encephalopathy Leukocytosis with left shift Severe hyponatremia Hypokalemia Hypomagnesemia Elevated troponin Chronic pain GERD Admit to ICU for closer monitoring ER doc discussed with nephrology. Nephrology consulted Potassium supplementation given in the ED Will start hypertonic saline 100 mL over 10 minutes Serum osmole's, urine osmole's, urine sodium pending Urine drug screen pending, TSH, ABG, telemetry Repeat BMP every 4 hours After hypertonic saline start normal saline at 75 cc Monitor for overcorrection She was dosed with Rocephin in the ED Will bolus with Merrem given leukocytosis with left shift CRP, lactate, and procalcitonin pending Straight cath Blood culture and urine cultures to be obtained She was given Geodon/Ativan due to agitation in the ED Hold gabapentin - Advance Directives Does patient have a Living Will: No Does patient have a Durable POA for Healthcare: No
[2024-07-21] MEDS: NA CHLORIDE 0.9% 1,000 ML IV SCH (03:00)
[2024-07-21] MEDS ORDERED: NA CHLORIDE 3% 500 ML ONE (03:11)
--- NOTE | 2024-07-21 03:53 | RAD REPORT ---
EXAM: CT Angiography Chest With Intravenous Contrast CLINICAL HISTORY: The patient is 69 years old and is Female; COPD TECHNIQUE: Axial computed tomographic angiography images of the chest with intravenous contrast. Sagittal an d coronal reformatted images were created and reviewed. This CT exam was performed using one or more of the following dose reduction techniques: automated exposure control, adjustment of the mA a nd/or kV according to patient size, and/or use of iterative reconstruction technique. MIP reconstructed images were created and reviewed. COMPARISON: No relevant prior studies available. FINDINGS: TRACHEA: The tracheobronchial tree is patent. PULMONARY ARTERIES: There are no obvious filling defects identified within the pulmonary arteries to suggest pulmonary embolism. AORTA: No acute findings. No thoracic aortic aneurysm. LUNGS: The lungs are hyperinflated with emphysematous change most prominent in the upper lung zon es. Following the hemidiaphragm is noted. There is no lobar consolidation. PLEURAL SPACE: Unremarkable. No significant effusion. No pneumothorax. HEART: A trace pericardial effusion is present. No cardiomegaly. No evidence of RV dysfunctio n. THYROID: The right lobe of the thyroid is enlarged and heterogeneous. A 2.3 cm right thyroid nodu le is noted. BONES/JOINTS: No acute fracture. No dislocation. SOFT TISSUES: Unremarkable. LYMPH NODES: Unremarkable. No enlarged lymph nodes. IMPRESSION: 1. No evidence of pulmonary embolism. 2. Mild emphysema. 3. Right thyroid nodule. Recommend non-emergent thyroid ultrasound. RECOMMENDATION: Given the presence of pulmonary emphysema, an independent risk factor for lung cancer , consider evaluating the patient for a low-dose CT lung cancer screening program. Electronically signed by: Khadra John MD 07/21/2024 01:54 AM [facility] Due to temporary technical issues with the [employer] reporting system, reports are being henry d by the in-house radiologist without review as a courtesy to ensure prompt reporting the interpreting radiologist is fully responsible for the content of the report. Transcribed Date/Time: 07/21/2024 3:53 AM
[2024-07-21] MEDS ORDERED: VANCOMYCIN 1 GM in NA CHLORIDE 0.9% 250 ML IVPB SCH (04:00)
[2024-07-21] MEDS ORDERED: NA CHLORIDE 0.9% 500 ML ONE (04:31)
[2024-07-21] MEDS ORDERED: VANCOMYCIN 500 MG/VIAL ONE (04:31)
[2024-07-21] MEDS ORDERED: VANCOMYCIN 1 GM/VIAL ONE (04:31)
[2024-07-21] MEDS ORDERED: NA CHLORIDE 0.9% 1,000 ML ONE (04:31)
[2024-07-21 04:39] LABS: Barbiturates NEGATIVE (NEGATIVE); Benzodiazepines NEGATIVE (NEGATIVE); Cocaine NEGATIVE (NEGATIVE); METHAMPHETAM NEGATIVE (NEGATIVE); Methadone NEGATIVE (NEGATIVE); Opiates NEGATIVE (NEGATIVE); Phencyclidine NEGATIVE (NEGATIVE); THC Cannibis POSITIVE (NEGATIVE)
[2024-07-21 04:59] VITALS: BMI 22.6
[2024-07-21] MEDS ORDERED: LORazepam 2 MG/ML VIAL ONE ×2 (05:07→12:44)
[2024-07-21] MEDS: VANCOMYCIN 1.5 GM in NA CHLORIDE 0.9% 500 ML IVPB ONE (05:51)
--- NOTE | 2024-07-21 06:02 | RAD REPORT ---
EXAM: XR Chest, 1 View CLINICAL HISTORY: The patient is 69 years old and is Female; CHEST PAIN TECHNIQUE: Frontal view of the chest. COMPARISON: No relevant prior studies available. FINDINGS: LUNGS: Unremarkable. No consolidation. PLEURAL SPACE: Unremarkable. No pneumothorax. HEART: Unremarkable. No cardiomegaly. MEDIASTINUM: Unremarkable. Normal mediastinal contour. BONES/JOINTS: Degenerative change of the bones is noted. No acute fracture. VASCULATURE: Atherosclerosis of the aorta is present. UPPER ABDOMEN: Unremarkable as visualized. IMPRESSION: No acute cardiopulmonary process. Electronically signed by: Khadra John MD 07/20/2024 11:21 PM [facility] Due to temporary technical issues with the PACS/[employer] reporting system, reports are being henry d by the in-house radiologist without review as a courtesy to ensure prompt reporting the interpreting radiologist is fully responsible for the content of the report. Transcribed Date/Time: 07/21/2024 6:02 AM
[2024-07-21 06:05] LABS: Arterial Blood Carboxyhemoglob 1.9 % (0-1.5); Blood Gas Oxyhemoglobin 94.1 % (94-97); Blood O2 Saturation 97.9 % (92-98.5)
[2024-07-21 06:06] LABS: Blood Gas THB 14.8 g/dl (12-18)
--- NOTE | 2024-07-21 06:32 | RAD REPORT ---
EXAMINATION: CT HEAD WITHOUT CONTRAST CT CERVICAL SPINE WITHOUT CONTRAST CLINICAL INDICATION: Female, 69 years old. Acute metabolic encephalopathy /rule out CVA TECHNIQUE: Axial CT images from the skull base to the vertex without intravenous contrast. Axial CT i mages through the cervical spine were obtained without intravenous contrast. Sagittal and coronal reformatted images were created from the data set. Coronal and sagittal reformatted images were creat ed from the data set. One or more of the following dose reduction techniques were used: Automated exposure control, adjustment of the mA and/or kV according to patient size, and/or iterative reconstr uction. Unless otherwise specified, incidental findings do not require dedicated imaging follow-up. [id number]. COMPARISON: No prior exam. FINDINGS: Head: FINDINGS: INTRACRANIAL: No acute intracranial hemorrhage. No hydrocephalus. No mass effect or midline shift. Mi ld chronic small vessel ischemic changes.Mild cerebral atrophy. VASCULATURE: No visualized abnormalities in the arteries or dural venous sinuses. SCALP/SKULL: No significant soft tissue or osseous abnormalities. SINUSES: The visualized paranasal sinuses are predominantly clear. No mastoid effusion. Cervical spine: ALIGNMENT: The cervical spine has normal alignment without scoliosis or spondylolisthesis. BONE: Vertebral body heights are maintained. No aggressive osseous lesions. DEGENERATIVE: Multilevel cervical spondylosis with varying degrees of neural foraminal narrowing. No high grade central spinal stenosis. SOFT TISSUE: No significant abnormalities in the soft tissue of the neck. No acute findings in the chandu ng apices. Right IJ approach dialysis catheter. IMPRESSION: 1. CT Head: No acute intracranial abnormality. 2. CT Cervical spine: No acute fracture or traumatic malalignment of the cervical spine. Electronically signed by: Esteban Long MD 07/21/2024 06:25 AM [facility] Due to temporary technical issues with the PACS/u[employer]P reporting system, reports are being henry d by the in-house radiologist without review as a courtesy to ensure prompt reporting the interpreting radiologist is fully responsible for the content of the report. Transcribed Date/Time: 07/21/2024 6:32 AM
[2024-07-21] MEDS ORDERED: NS KCL 20MEQ 1,000 ML IV ONE (06:37)
--- NOTE | 2024-07-21 06:47 | RAD REPORT ---
EXAM: XR CHEST 1 VIEW HISTORY: 69 years Female central line placement COMPARISON: 07/20/2024 FINDINGS: LUNGS/PLEURA: The lungs are clear. No pleural effusions or pneumothorax. No pulmonary edema. Emphys sana. CARDIAC/MEDIASTINUM: The cardiac silhouette is within normal limits. Due to temporary technical issues with the PACS/[employer] reporting system, reports are being henry d by the in-house radiologist without review as a courtesy to ensure prompt reporting the interpreting radiologist is fully responsible for the content of the report. UPPER ABDOMEN: No significant abnormality. BONES: No acute abnormality. LINES/TUBES/OTHER: Right IJ approach central line with tip overlying the proximal SVC. IMPRESSION: No evidence of acute cardiopulmonary disease. Right IJ approach central line with tip overlying the p roximal SVC. Electronically signed by: Esteban Long MD 07/21/2024 06:41 AM [facility] Transcribed Date/Time: 07/21/2024 6:47 AM
[2024-07-21 07:05] LABS: Anion Gap 12.7 mEq/L (5.0-15.0); Potassium 2.7 mEq/L (3.5-5.1)
[2024-07-21] MEDS: POTASSIUM CL 40 MEQ in NA CHLORIDE 0.9% 500 ML IV SCH (08:25)
[2024-07-21] MEDS ORDERED: HEPARIN 5000 UNIT/ML 1 ML VIAL ONE (09:07)
[2024-07-21] MEDS ORDERED: HEPARIN/D5W 25,000 UNIT/500 ML BAG IV ONE (09:08)
--- NOTE | 2024-07-21 09:27 | P.CNS ---
Date of Consult: 07/21/24 Reason for Consult: Hyponatremia Requesting Physician: Rochelle Soler Chief Complaint: AMS History of Present Illness: Is a 69-year-old with a past medical history of hypertension, esophagitis, gastroparesis who presented with acute metabolic encephalopathy. I am unable to obtain history at this time as patient is completely altered. She presented via EMS with complaints of shortness of breath. She has had previous visits to the emergency room. Her last visit was in late March 2024. At that time she had some suprapubic discomfort. History is limited as there is no one at bedside. [id number] 01:41 This 69 yrs old Female presents to ER via EMS with complaints of Shortness Of sp4 Breath. Allergies ketorolac [From Toradol] Allergy (Verified 09/27/22 18:46) Itching/Hives/Rash Sulfa (Sulfonamide Antibiotics) Allergy (Verified 08/20/14 13:11) Itching/Hives/Rash tramadol Allergy (Verified 09/27/22 18:46) Shortness of breath Home medications list reviewed: Yes Home Medications: Gabapentin 800 mg PO TID 06/10/23 Losartan Potassium 50 mg PO DAILY AFTER SUPPER 06/10/23 Ondansetron [Zofran (Odt)*] 4 mg PO Q6H PRN #20 tab 03/23/24 Sodium Chloride Tab [Sodium Chloride*] 1 gm PO BID #60 tab 04/16/24 Fluconazole 200 mg PO DAILY 8 Days #8 tab 04/21/24 Pantoprazole [Protonix Tab*] 40 mg PO DAILY 30 Days #30 tab 04/21/24 - Past Medical/Surgical History Diabetic: No -: NIDDM2 -: HTN -: GERD -: Chronic pain -: Hyponatremia -: SBO -: hysterectomy -: -: bowel resection -: Gallbladder Psychosocial/ Personal History: Lives in her home with her Son and his - Family History Father Medical History: Other (see notes) Notes: thought to have from cancer Mother Medical History: Other (see notes) Notes: spinal stenosis Brother Medical History: Heart disease, Diabetes Notes: stents. stenosis Sister Medical History: Blood disorders Notes: form of leukemia - Social History Smoking Status: Unknown if ever smoked Alcohol use: No CD- Drugs: No Caffeine use: Yes Review of Systems is unable to be obtained Physical Examination Temp Pulse Resp BP Pulse Ox 97.8 F 114 H 24 H 138/73 98 07/21/24 09:00 07/21/24 09:00 07/21/24 09:00 07/21/24 09:00 07/21/24 09:00 General: In no apparent distress, Delirious HEENT: Atraumatic Neck: Supple Respiratory: Normal air movement Cardiovascular: No edema, Regular rate/rhythm Gastrointestinal: Soft and benign, Non-distended Musculoskeletal: No clubbing, No contractures Integumentary: No rashes, No cyanosis Neurological: Normal speech Laboratory Data (last 24 hrs) 07/21/24 07/20/24 07/20/24 00:31 23:20 23:20 WBC 18.60 H Hgb 15.1 H Hct 43.5 Plt Count 318 PT 11.9 INR 1.05 Sodium 110 L* Potassium 2.5 L* D BUN 8 Creatinine 0.44 L Glucose 143 H Magnesium Total Bilirubin AST ALT Alkaline Phosphatase 07/20/24 23:20 WBC Hgb Hct Plt Count PT INR Sodium 109 L* Potassium 3.2 L BUN 7 Creatinine 0.82 Glucose 157 H Magnesium 1.4 L Total Bilirubin 2.0 H AST 24 ALT 25 Alkaline Phosphatase 95 Imagings Data: [id number] EXAM: XR CHEST 1 VIEW HISTORY: 69 years Female central line placement COMPARISON: 07/20/2024 FINDINGS: LUNGS/PLEURA: The lungs are clear. No pleural effusions or pneumothorax. No pulmonary edema. Emphysema. CARDIAC/MEDIASTINUM: The cardiac silhouette is within normal limits. Due to temporary technical issues with the PACS/[employer] reporting system, reports are being signed by the in-house radiologist without review as a courtesy to ensure prompt reporting the interpreting radiologist is fully responsible for the content of the report. UPPER ABDOMEN: No significant abnormality. BONES: No acute abnormality. LINES/TUBES/OTHER: Right IJ approach central line with tip overlying the proximal SVC. IMPRESSION: No evidence of acute cardiopulmonary disease. Right IJ approach central line with tip overlying the proximal SVC. EXAMINATION: CT HEAD WITHOUT CONTRAST CT CERVICAL SPINE WITHOUT CONTRAST CLINICAL INDICATION: Female, 69 years old. Acute metabolic encephalopathy /rule out CVA TECHNIQUE: Axial CT images from the skull base to the vertex without intravenous contrast. Axial CT images through the cervical spine were obtained without intravenous contrast. Sagittal and coronal reformatted images were created from the data set. Coronal and sagittal reformatted images were created from the data set. One or more of the following dose reduction techniques were used: Automated exposure control, adjustment of the mA and/or kV according to patient size, and/or iterative reconstruction. Unless otherwise specified, incidental findings do not require dedicated imaging follow-up. [id number]. COMPARISON: No prior exam. FINDINGS: Head: FINDINGS: INTRACRANIAL: No acute intracranial hemorrhage. No hydrocephalus. No mass effect or midline shift. Mild chronic small vessel ischemic changes.Mild cerebral atrophy. VASCULATURE: No visualized abnormalities in the arteries or dural venous sinuses. SCALP/SKULL: No significant soft tissue or osseous abnormalities. SINUSES: The visualized paranasal sinuses are predominantly clear. No mastoid effusion. Cervical spine: ALIGNMENT: The cervical spine has normal alignment without scoliosis or spondylolisthesis. BONE: Vertebral body heights are maintained. No aggressive osseous lesions. DEGENERATIVE: Multilevel cervical spondylosis with varying degrees of neural foraminal narrowing. No high grade central spinal stenosis. SOFT TISSUE: No significant abnormalities in the soft tissue of the neck. No acute findings in the lung apices. Right IJ approach dialysis catheter. IMPRESSION: 1. CT Head: No acute intracranial abnormality. 2. CT Cervical spine: No acute fracture or traumatic malalignment of the cervical spine. EXAM: CT Angiography Chest With Intravenous Contrast CLINICAL HISTORY: The patient is 69 years old and is Female; COPD TECHNIQUE: Axial computed tomographic angiography images of the chest with intravenous contrast. Sagittal and coronal reformatted images were created and reviewed. This CT exam was performed using one or more of the following dose reduction techniques: automated exposure control, adjustment of the mA and/or kV according to patient size, and/or use of iterative reconstruction technique. MIP reconstructed images were created and reviewed. COMPARISON: No relevant prior studies available. FINDINGS: TRACHEA: The tracheobronchial tree is patent. PULMONARY ARTERIES: There are no obvious filling defects identified within the pulmonary arteries to suggest pulmonary embolism. AORTA: No acute findings. No thoracic aortic aneurysm. LUNGS: The lungs are hyperinflated with emphysematous change most prominent in the upper lung zones. Following the hemidiaphragm is noted. There is no lobar consolidation. PLEURAL SPACE: Unremarkable. No significant effusion. No pneumothorax. HEART: A trace pericardial effusion is present. No cardiomegaly. No evidence of RV dysfunction. THYROID: The right lobe of the thyroid is enlarged and heterogeneous. A 2.3 cm right thyroid nodule is noted. BONES/JOINTS: No acute fracture. No dislocation. SOFT TISSUES: Unremarkable. LYMPH NODES: Unremarkable. No enlarged lymph nodes. IMPRESSION: 1. No evidence of pulmonary embolism. 2. Mild emphysema. 3. Right thyroid nodule. Recommend non-emergent thyroid ultrasound. RECOMMENDATION: Given the presence of pulmonary emphysema, an independent risk factor for lung cancer, consider evaluating the patient for a low-dose CT lung cancer screening program. EXAM: XR Chest, 1 View CLINICAL HISTORY: The patient is 69 years old and is Female; CHEST PAIN TECHNIQUE: Frontal view of the chest. COMPARISON: No relevant prior studies available. FINDINGS: LUNGS: Unremarkable. No consolidation. PLEURAL SPACE: Unremarkable. No pneumothorax. HEART: Unremarkable. No cardiomegaly. MEDIASTINUM: Unremarkable. Normal mediastinal contour. BONES/JOINTS: Degenerative change of the bones is noted. No acute fracture. VASCULATURE: Atherosclerosis of the aorta is present. UPPER ABDOMEN: Unremarkable as visualized. IMPRESSION: No acute cardiopulmonary process. Conclusions/Impression: Hyponatremia -Hypertonic and Normal Saline given overnight. IVF fluids changed to D5W & DDAVP given this morning to slow the correction. -DDAVP as ordered -BMP q4h Hypokalemia -Replete as ordered Hypomagnesemia -Replete as ordered Hyperglycemia -Check A1C Toxic Metabolic Encephalopathy -Sodium correction Case reviewed with Dr. Hernadez Thank you kindly for the consultation Patient care 35min
[2024-07-21] MEDS: Meropenem 1,000 MG in NA CHLORIDE 0.9% 100 ML IV SCH (09:30)
[2024-07-21] MEDS: DESMOPRESSIN 4 MCG/ML AMP SQ ONE ×2 (10:00→21:11)
[2024-07-21] MEDS: D5W 1,000 ML with POTASSIUM CL 20 MEQ IV SCH ×2 (10:30→18:55)
[2024-07-21] MEDS: HEPARIN/D5W 25,000 UNIT/500 ML BAG IV SCH (10:43)
--- NOTE | 2024-07-21 11:03 | EKG ---
Test Date: 2024-07-21 Test Time: 00:16:31 [employer]ops Consultant: KAITLIN MEASUREMENT RESULTS: Intervals: Rate: 78 WI: 140 QRSD: 98 QT: 424 QTc: 483 [place]: P: 86 WI: 140 QRS: 76 T: 84 INTERPRETIVE STATEMENTS: Normal sinus rhythm Possible Left atrial enlargement Borderline ECG Compared to ECG 04/18/2024 18:06:06 No significant changes Electronically Signed On 07-21-24 11:01:50 [employer] TESTER by Rosales Baum
[2024-07-21] MEDS ORDERED: Meropenem 1000 MG/VIAL IV ONE (11:14)
[2024-07-21] MEDS ORDERED: NA CHLORIDE 0.9% 100 ML ONE (11:14)
--- NOTE | 2024-07-21 11:40 | ECHO ---
HEIGHT: 5 ft 0 in WEIGHT: 116 lb 0 oz DATE OF STUDY: 07/21/[address]: Rosales Baum MD 2-DIMENSIONAL: YES M.MODE: YES DOPPLER: YES COLOR FLOW: YES TDS: YES PORTABLE: YES DEFINITY: NO BUBBLE STUDY: NO DIAGNOSIS: NSTEMI CARDIAC HISTORY: CATHERIZATION: SURGERY: PROSTHETIC VALVE: PACEMAKER: MEASUREMENTS (cm) DIASTOLIC (NORMALS) SYSTOLIC (NORMALS) IVSd 0.8 (0.6-1.2) LA Diam 3.0 (1.9-4.0) LVEF 60-65% LVIDd 3.9 (3.5-5.7) LVIDs 2.3 (2.0-3.5) %FS 42% LVPWd 0.9 (0.6-1.2) Ao Diam 2.4 (2.0-3.7) 2 DIMENSIONAL ASSESSMENT: RIGHT ATRIUM: NORMAL LEFT ATRIUM: NORMAL RIGHT VENTRICLE: NORMAL LEFT VENTRICLE: NORMAL TRICUSPID VALVE: TRACE TRICUSPID REGURGITATION MITRAL VALVE: MILD MITRAL ANNULAR CALCIFICATION PULMONIC VALVE: NORMAL AORTIC VALVE: NORMAL PERICARDIAL EFFUSION: SMALL CIRCUMFRENTIAL AORTIC ROOT: NORMAL LEFT VENTRICULAR WALL MOTION: NORMAL. DOPPLER/COLOR FLOW: NORMAL. COMMENTS: 1. NORMAL LEFT VENTRICULAR SYSOTLIC FUNCTION. LEFT VENTRICULAR EJECTION FRACTION 60-65%. NORMAL WALL MOTION. 2. SMALL CIRCUMFRENTIAL PERICARDIAL EFFUSION, NO TAMPONADE. 3. NORMAL FILLING PRESSURE. TECHNOLOGIST: NICK SOLOMON
[2024-07-21 11:46] LABS: Anion Gap 12.3 mEq/L (5.0-15.0); Potassium 3.3 mEq/L (3.5-5.1)
--- NOTE | 2024-07-21 11:53 | P.CNS ---
Date of Consult: 07/21/24 Chief Complaint: NSTEMI History of Present Illness: Patient with PMH of HTN, presented with AMS, found to have PNA and severe hyponatremia, patient is altered and not able to communicate, she very cachectic, malnourished, vitals are normal, cardiology were consulted for elevated troponin. Allergies ketorolac [From Toradol] Allergy (Verified 09/27/22 18:46) Itching/Hives/Rash Sulfa (Sulfonamide Antibiotics) Allergy (Verified 08/20/14 13:11) Itching/Hives/Rash tramadol Allergy (Verified 09/27/22 18:46) Shortness of breath Home medications list reviewed: Yes Home Medications: Gabapentin 800 mg PO TID 06/10/23 Losartan Potassium 50 mg PO DAILY AFTER SUPPER 06/10/23 Ondansetron [Zofran (Odt)*] 4 mg PO Q6H PRN #20 tab 03/23/24 Sodium Chloride Tab [Sodium Chloride*] 1 gm PO BID #60 tab 04/16/24 Fluconazole 200 mg PO DAILY 8 Days #8 tab 04/21/24 Pantoprazole [Protonix Tab*] 40 mg PO DAILY 30 Days #30 tab 04/21/24 - Past Medical/Surgical History Diabetic: No -: NIDDM2 -: SBO -: GERD -: Chronic pain -: hysterectomy -: -: bowel resection -: Gallbladder Psychosocial/ Personal History: Lives in her home with her Son and his - Family History Father Medical History: Other (see notes) Notes: thought to have from cancer Mother Medical History: Other (see notes) Notes: spinal stenosis Brother Medical History: Heart disease, Diabetes Notes: stents. stenosis Sister Medical History: Blood disorders Notes: form of leukemia - Social History Smoking Status: Unknown if ever smoked Alcohol use: No CD- Drugs: No Caffeine use: Yes Review of Systems is unable to be obtained (patient is altered and will not answer questions) Physical Examination Temp Pulse Resp BP Pulse Ox 97.8 F 89 22 H 145/75 H 100 07/21/24 11:00 07/21/24 11:00 07/21/24 11:00 07/21/24 11:00 07/21/24 11:00 General: Alert, Disheveled, Delirious HEENT: Atraumatic, PERRLA, Mucous membr. moist/pink, EOMI, Sclerae nonicteric Neck: Supple, 2+ carotid pulse no bruit, No LAD, Without JVD or thyroid abnormality Respiratory: Crackles/rales, Rhonchi/gurgles Cardiovascular: No edema, Regular rate/rhythm, Normal S1 S2 Gastrointestinal: Normal bowel sounds, No tenderness Musculoskeletal: No tenderness Integumentary: No rashes Neurological: Normal gait, Normal speech, Normal tone, Normal affect Lymphatics: No axilla or inguinal lymphadenopathy Laboratory Data (last 24 hrs) 07/21/24 07/20/24 07/20/24 00:31 23:20 23:20 WBC 18.60 H Hgb 15.1 H Hct 43.5 Plt Count 318 PT 11.9 INR 1.05 Sodium 110 L* Potassium 2.5 L* D BUN 8 Creatinine 0.44 L Glucose 143 H Magnesium Total Bilirubin AST ALT Alkaline Phosphatase 07/20/24 23:20 WBC Hgb Hct Plt Count PT INR Sodium 109 L* Potassium 3.2 L BUN 7 Creatinine 0.82 Glucose 157 H Magnesium 1.4 L Total Bilirubin 2.0 H AST 24 ALT 25 Alkaline Phosphatase 95 - Problems (1) NSTEMI (non-ST elevated myocardial infarction) Current Visit: Yes Status: Acute Plan: Patient is altered so can not tell if she is having chest pain, EKG reviewed and no significant ST-T wave changes, Troponin mild elevated. Echo shows normal EF wiwth normal wall motions and small effusion Most likely type 2 CO from PNA continue ASA 81 mg daily continue Heparin drip
[2024-07-21] MEDS: LORazepam 2 MG/ML VIAL IV ONE (12:39)
--- NOTE | 2024-07-21 14:45 | P.PN ---
Date of Service: 07/21/24 Patient seen and examined. She is drowsy, easily arousable however confused. Sodium level increased from 110-127. Patient was getting IV 3% normal saline, transition to 0.9% normal saline. IV normal saline discontinued and patient placed on D5 water to reverse sodium correction. Patient evaluated by nephrology Dr. Mitchell and DDAVP also given to reverse sodium correction. Continue to monitor BMP per hyponatremia protocol. Cardiology input regarding elevated troponin appreciated. Continue heparin drip. Neurochecks.
[2024-07-21 15:54] LABS: Anion Gap 9.9 mEq/L (5.0-15.0); Potassium 2.9 mEq/L (3.5-5.1)
[2024-07-21 16:05] LABS: Absolute Monocytes 2.1 K/uL (0.1-1.3); Absolute Neutrophil 10.6 K/uL (1.8-8.0); Basophils % 0.2 % (0-1.3); Hematocrit 39.4 % (36.0-45.0); Hemoglobin 13.7 g/dL (12.0-15.0); Lymphocytes % 7.3 % (15.3-44.8); MCH 32.4 pg (27.0-35.0); MCHC 34.7 g/dL (32.0-36.0); MCV 93.3 fL (80-100); MPV 7.2 fL (7.6-11.3); Monocytes % 15.2 % (3.3-12.3); Neutrophils % 77.3 % (41.7-73.7); Platelets 235 thou/uL (152-406); RBC Red Blood Cell Count 4.22 M/uL (3.86-4.86); Red Cell Distribution Width 13.5 % (12.1-15.2)
[2024-07-21] MEDS: VANCOMYCIN 1 GM in NA CHLORIDE 0.9% 250 ML IVPB SCH (17:53)
[2024-07-21] MEDS: KCL 20 MEQ/100 mL IVPB 20 MEQ/100 ML BAG IV SCH (17:53)
[2024-07-21 19:49] LABS: Troponin High Sensitivity 542.9 pg/mL (<58.9)
[2024-07-22 00:38] LABS: Anion Gap 10.7 mEq/L (5.0-15.0); Potassium 3.7 mEq/L (3.5-5.1)
[2024-07-22] MEDS: KCL 20 MEQ/100 mL IVPB 20 MEQ/100 ML BAG IV SCH (03:33)
[2024-07-22 04:27] LABS: Magnesium 1.8 mg/dL (1.6-2.4); Uric Acid 1.6 mg/dL (2.6-6.0)
[2024-07-22 04:33] LABS: Anion Gap 10.5 mEq/L (5.0-15.0); Potassium 3.5 mEq/L (3.5-5.1)
[2024-07-22 04:34] LABS: Phosphorus 0.8 mg/dL (2.5-4.9)
[2024-07-22] MEDS: MAGNESIUM SULFATE 1 gm IVPB 1 GM/100 ML BAG IV ONE (05:37)
[2024-07-22] MEDS: POTASSIUM PHOS IN 0.9 % NACL 15 MMOL/250 ML BAG IV SCH (05:39)
--- NOTE | 2024-07-22 08:43 | RAD REPORT ---
Exam:Abdomen 1 View (KUB) Clinical history: Abdominal pain FINDINGS: The bowel gas pattern is unremarkable No significant calcification is displayed.. Surgical clips right upper quadrant
[2024-07-22] MEDS ORDERED: POTASSIUM PHOS 30 MM in NA CHLORIDE 0.9% 500 ML IV ONE (09:00)
[2024-07-22 10:24] LABS: Anion Gap 8.7 mEq/L (5.0-15.0); Potassium 3.7 mEq/L (3.5-5.1)
--- NOTE | 2024-07-22 11:50 | P.PN ---
Subjective Date of Service: 07/22/24 Chief Complaint: AMS Subjective: No new changes (Patient is very poor at communications) Review of Systems 10-point ROS is otherwise unremarkable Physical Examination - Vital Signs Temperature: 98.1 F Blood Pressure: 128/76 Pulse: 77 Respirations: 21 Pulse Ox (%): 98 - Physical Exam General: Alert, In no apparent distress, Disheveled, Confused HEENT: Atraumatic, PERRLA, EOMI Neck: Supple, JVD not distended Respiratory: Clear to auscultation bilaterally, Normal air movement Cardiovascular: Regular rate/rhythm, Normal S1 S2 Gastrointestinal: Normal bowel sounds, No tenderness Musculoskeletal: No tenderness Integumentary: No rashes Neurological: Normal speech, Normal tone, Normal affect Lymphatics: No axilla or inguinal lymphadenopathy - Studies Medications List Reviewed: Yes Assessment And Plan - Current Problems (Diagnosis) (1) NSTEMI (non-ST elevated myocardial infarction) Current Visit: Yes Status: Acute Plan: Patient is altered so can not tell if she is having chest pain, EKG reviewed and no significant ST-T wave changes, Troponin mild elevated. but no significant delta Echo shows normal EF wiwth normal wall motions and small effusion Most likely type 2 AR from PNA continue ASA 81 mg daily start Plavix 75 mg daily add Coreg 3.125 mg po BID add Losartan 25 mg daily continue Heparin drip for 48 hours then stop
--- NOTE | 2024-07-22 12:11 | CON ---
Reason For Consultation: Consultation called because of confusion. History Of Present Illness: Ms. Pool is a 69-year-old patient with diabetes mellitus, hypertensio n, neuropathy, dyslipidemia, who was brought by EMS on July 21, 2024, with worsening shortness of gaby ath, confusion, agitation, and there was wheezing as well. Her head and cervical spine CT scan showe d multilevel cervical spondylosis varying degrees, neuroforaminal narrowing, however, no high-grade s tenosis identified. CT scan of the head showed no acute ischemic or hemorrhagic findings. Her labor atory studies however showed white blood cell count elevated to 18.6 with neutrophils 83.7, and her u rinalysis which actually is still pending. Her urine drug screen did show marijuana positivity, but was otherwise negative. She is monitored in ICU. Her electrolyte abnormalities did show significant hyponatremia of 110 with hypokalemia of 2.5 and elevated troponin of 443. She was diagnosed with me tabolic encephalopathy, potentially aggravated by drug use. CT scan of the head again showed no isch emic or hemorrhagic change and there was no reported focal presentation in terms of face, arm, leg nu mbness or weakness. She is now having electrolyte correction on board as she is monitored in ICU. Past Medical History: As noted. Allergies: SULFA, TORADOL, TRAMADOL. Past Surgical History: Appendectomy, bowel surgery, cholecystectomy, . Family History: Noncontributory. Social History: The patient smokes marijuana on a regular basis and currently occasionally uses alco hol as well, but denies other drugs. Review of Systems: Nausea, vomiting, myalgias, arthralgias present for at least around 3 weeks and some intermittent dis orientation and confusion. Physical Examination: Vital Signs: Blood pressure 128/76, pulse 77, respiratory rate 17 to 21, temperature 98, oxygen satu ration 98%. Weight 116 pounds, height 5 feet, and BMI 72.7. General: Ms. Pool is in ICU. She is resting comfortably, in no acute distress. HEENT: She does appear normocephalic, atraumatic. Sclerae anicteric. Oropharynx pink and moist. Neck: Supple. Chest: Clear. Heart: Regular. Neurological: She was asleep, but easily aroused and was able to follow all commands. She had no ob vious cranial nerve deficits. She did not cooperate fully to move her legs, but moved the arms equal ly well. Legs did not show any evidence of loss of sensation or loss of tone. Coordination appeared intact and she will be ambulated with the rolling walker and gait belt with Physical Therapy Service . Assessment: Ms. Pool is a 69-year-old patient with significant metabolic encephalopathy, likely a ggravated by the use of marijuana. There is a possibility of toxic encephalopathy as well with eleva siomara white blood cell count and neutrophils being elevated. She is currently managed with meropenem a nd vancomycin for possible sepsis, although procalcitonin is negative. She has IV hydration on board and DVT prophylaxis on board. Plan: We will do routine electroencephalogram to rule out the presence of an abnormal electrical dis charge and if the patient does develop any focal findings, brain MRI may be helpful to rule out focal ischemic event. Otherwise, the patient should be corrected in terms of the metabolic correction wit hout too quick a correction of sodium to help reduce the risk of further complications. GWEN/HEBER Voice ID: [id number] Report ID: [id number]
[2024-07-22] MEDS: FOLIC ACID 1 MG, MULTIVITAMINS INJ 10 ML, THIAMINE HCL 100 MG in NA CHLORIDE 0.9% 1,000 ML IV SCH (12:25)
--- NOTE | 2024-07-22 12:48 | P.PN ---
Subjective Date of Service: 07/22/24 Chief Complaint: AMS Patient is more awake today. She complains of abdominal pain. KUB done did not show any acute disease. Sodium level has stabilized around 121-123. Physical Examination - Vital Signs Temperature: 98.1 F Blood Pressure: 130/61 Pulse: 68 Respirations: 17 Pulse Ox (%): 98 - Studies Medications List Reviewed: Yes Assessment And Plan - Plan Diagnosis Acute metabolic encephalopathy Leukocytosis. Hyponatremia Hypokalemia Hypomagnesemia Elevated troponin Chronic pain GERD Plan: Acute metabolic encephalopathy Hyponatremia Acute metabolic encephalopathy likely secondary to dehydration. Status post 3% hypertonic saline, transition to D5 water to curb sodium overcorrection Nephrology is following and managing. Status post DDAVP. D5 water now changed to IV NS Continue to monitor BMP. Hypokalemia Hypomagnesemia Hypophosphatemia Status post IV potassium replacement Potassium level corrected for now Monitor and replete other electrolytes as needed. Elevated troponin/NSTEMI type II Cardiology input appreciated. Patient is on heparin drip. Need to complete heparin drip in 48 hours. Leukocytosis Improving. Blood cultures have shown no growth Continue antibiotics Monitor CBC. Chronic pain syndrome Hold gabapentin given [facility] [place] as needed for pain. DVT prophylaxis: On heparin drip. Advanced directive: Full code
[2024-07-22 14:21] LABS: Anion Gap 9.7 mEq/L (5.0-15.0); Potassium 3.7 mEq/L (3.5-5.1)
[2024-07-22] MEDS: PIPER TAZO 3.375 GM in NA CHLORIDE 0.9% 100 ML IV SCH (17:15)
[2024-07-22] MEDS: carvediloL 3.125 MG TAB PO SCH (17:16)
[2024-07-22] MEDS: HEPARIN/D5W 25,000 UNIT/500 ML BAG IV PRN (18:10)
[2024-07-22] MEDS: POTASSIUM PHOS 30 MM in NA CHLORIDE 0.9% 500 ML IV ONE (18:10)
[2024-07-22] MEDS: HYDROCODONE/APAP 5/325 MG TAB PO PRN (18:12)
[2024-07-22 18:50] LABS: Anion Gap 10.5 mEq/L (5.0-15.0); BUN Blood Urea Nitrogen 3 mg/dL (7-18); Bicarbonate 25 mEq/L (21-32); Glucose Level 112 mg/dL (74-106); Potassium 3.5 mEq/L (3.5-5.1); Sodium Level 124 mEq/L (136-145)
[2024-07-22 18:52] LABS: Glomerular Filtration Rate 121 ml/min (=/>90)
[2024-07-22] MEDS: ALBUTEROL 2.5 MG/3 ML NEB SOL NEB PRN (19:53)
[2024-07-22] MEDS: IPRATROPIUM BROM 0.5MG/2.5ML NEB PRN (19:53)
--- NOTE | 2024-07-22 20:34 | P.PN ---
Date of Service: 07/22/24 Vital Signs Temp Pulse Resp BP Pulse Ox 97.8 F 70 22 H 139/66 100 07/22/24 16:00 07/22/24 18:00 07/22/24 18:00 07/22/24 18:00 07/22/24 18:00 Medications Hydrocodone Bitart/Acetaminophen (Hydrocodone/Apap 5/325 Mg Tab) 1 tab PO Q4H PRN PRN Reason: Pain scale 5-7 (Moderate) Last Admin: 07/22/24 18:12 Dose: 1 tab Albuterol Sulfate (Albuterol 2.5 Mg/3 Ml Neb Michelle) 2.5 mg NEB Q6H PRN PRN Reason: SHORTNESS OF BREATH Carvedilol (Carvedilol 3.125 Mg Tab) 3.125 mg PO BID 6AM 6PM [facility] Last Admin: 07/22/24 17:16 Dose: 3.125 mg Clopidogrel Bisulfate (Clopidogrel 75 Mg Tablet) 75 mg PO DAILY [facility] Heparin Sodium/Dextrose (Heparin Drip 25,000 Units/5oo Ml Premix) 25,000 unit in 500 mls @ 0 mls/hr IV UD PRN; Protocol PRN Reason: Heparin Protocol Last Admin: 07/22/24 18:10 Dose: 500 mls Folic Acid 1 mg/ Multivitamins 10 ml/ Thiamine HCl 100 mg/Sodium Chloride 1,011.2 mls @ 85 mls/hr IV Q24H [facility] Last Admin: 07/22/24 12:25 Dose: 1,011.2 mls Sodium Chloride (Ns 1000 Ml Ivbag) 1,000 mls @ 85 mls/hr IV Q24H [facility] Piperacillin Sod/Tazobactam (Sod 3.375 gm/ Sodium Chloride) 100 mls @ 25 mls/hr IV Q8HR [facility] Last Admin: 07/22/24 17:15 Dose: 100 mls Potassium Phosphate 30 mm/ (Sodium Chloride) 500 mls @ 100 mls/hr IV 1X ONE; Protocol Stop: 07/22/24 21:33 Last Admin: 07/22/24 18:10 Dose: 500 mls Ipratropium [place] (Ipratropium Brom 0.5mg/2.5ml) 0.5 mg NEB Q4H PRN PRN Reason: SHORTNESS OF BREATH Losartan Potassium (Losartan Potassium 50 Mg Tablet) 25 mg PO DAILY [facility] Microbiology Results 07/21/24 00:30 Blood - Blood Aerobic Blood Culture - Preliminary No growth in 24 hours. 07/21/24 00:30 Blood - Blood Anaerobic Blood Culture - Preliminary No growth in 24 hours. 07/21/24 00:45 Blood - Blood Aerobic Blood Culture - Preliminary No growth in 24 hours. 07/21/24 00:45 Blood - Blood Anaerobic Blood Culture - Preliminary No growth in 24 hours. Assessment/ Plan: Nephrology No dyspnea No chest pain No acute events overnight Vitals, medications, blood work and imaging reviewed in the chart General: In no apparent distress, Delirious HEENT: Atraumatic Neck: Supple Respiratory: Normal air movement Cardiovascular: No edema, Regular rate/rhythm Gastrointestinal: Soft and benign, Non-distended Musculoskeletal: No clubbing, No contractures Integumentary: No rashes, No cyanosis Neurological: Normal speech [facility] Laboratory Data (last 24 hrs) 07/21/24 07/20/24 07/20/24 00:31 23:20 23:20 WBC 18.60 H Hgb 15.1 H Hct 43.5 Plt Count 318 PT 11.9 INR 1.05 Sodium 110 L* Potassium 2.5 L* D BUN 8 Creatinine 0.44 L Glucose 143 H Magnesium Total Bilirubin AST ALT Alkaline Phosphatase 07/20/24 23:20 WBC Hgb Hct Plt Count PT INR Sodium 109 L* Potassium 3.2 L BUN 7 Creatinine 0.82 Glucose 157 H Magnesium 1.4 L Total Bilirubin 2.0 H AST 24 ALT 25 Alkaline Phosphatase 95 Imagings Data: [id number] EXAM: XR CHEST 1 VIEW HISTORY: 69 years Female central line placement COMPARISON: 07/20/2024 FINDINGS: LUNGS/PLEURA: The lungs are clear. No pleural effusions or pneumothorax. No pulmonary edema. Emphysema. CARDIAC/MEDIASTINUM: The cardiac silhouette is within normal limits. Due to temporary technical issues with the PACS/[employer] reporting system, reports are being signed by the in-house radiologist without review as a courtesy to ensure prompt reporting the interpreting radiologist is fully responsible for the content of the report. UPPER ABDOMEN: No significant abnormality. BONES: No acute abnormality. LINES/TUBES/OTHER: Right IJ approach central line with tip overlying the proximal SVC. IMPRESSION: No evidence of acute cardiopulmonary disease. Right IJ approach central line w ith tip overlying the proximal SVC. EXAMINATION: CT HEAD WITHOUT CONTRAST CT CERVICAL SPINE WITHOUT CONTRAST CLINICAL INDICATION: Female, 69 years old. Acute metabolic encephalopathy /rule out CVA TECHNIQUE: Axial CT images from the skull base to the vertex without intravenous contrast. Axial CT images through the cervical spine were obtained without intravenous contrast. Sagittal and coronal reformatted images were created from the data set. Coronal and sagittal reformatted images were created from the data set. One or more of the following dose reduction techniques were used: Automated exposure control, adjustment of the mA and/or kV according to patient size, and/or iterative reconstruction. Unless otherwise specified, incidental findings do not require dedicated imaging follow-up. [id number]. COMPARISON: No prior exam. FINDINGS: Head: FINDINGS: INTRACRANIAL: No acute intracranial hemorrhage. No hydrocephalus. No mass effect or midline shift. Mild chronic small vessel ischemic changes.Mild cerebral atrophy. VASCULATURE: No visualized abnormalities in the arteries or dural venous sinuses. SCALP/SKULL: No significant soft tissue or osseous abnormalities. SINUSES: The visualized paranasal sinuses are predominantly clear. No mastoid effusion. Cervical spine: ALIGNMENT: The cervical spine has normal alignment without scoliosis or spondylolisthesis. BONE: Vertebral body heights are maintained. No aggressive osseous lesions. DEGENERATIVE: Multilevel cervical spondylosis with varying degrees of neural foraminal narrowing. No high grade central spinal stenosis. SOFT TISSUE: No significant abnormalities in the soft tissue of the neck. No acute findings in the lung apices. Right IJ approach dialysis catheter. IMPRESSION: 1. CT Head: No acute intracranial abnormality. 2. CT Cervical spine: No acute fracture or traumatic malalignment of the cervical spine. EXAM: CT Angiography Chest With Intravenous Contrast CLINICAL HISTORY: The patient is 69 years old and is Female; COPD TECHNIQUE: Axial computed tomographic angiography images of the chest with intravenous co ntrast. Sagittal and coronal reformatted images were created and reviewed. This CT exam was performed using one or more of the following dose reduction techniques: automated exposure control, adjustment of the mA and/or kV according to patient size, and/or use of iterative reconstruction technique. MIP reconstructed images were created and reviewed. COMPARISON: No relevant prior studies available. FINDINGS: TRACHEA: The tracheobronchial tree is patent. PULMONARY ARTERIES: There are no obvious filling defects identified within the pulmonary arteries to suggest pulmonary embolism. AORTA: No acute findings. No thoracic aortic aneurysm. LUNGS: The lungs are hyperinflated with emphysematous change most prominent in the upper lung zones. Following the hemidiaphragm is noted. There is no lobar consolidation. PLEURAL SPACE: Unremarkable. No significant effusion. No pneumothorax. HEART: A trace pericardial effusion is present. No cardiomegaly. No evidence of RV dysfunction. THYROID: The right lobe of the thyroid is enlarged and heterogeneous. A 2.3 cm right thyroid nodule is noted. BONES/JOINTS: No acute fracture. No dislocation. SOFT TISSUES: Unremarkable. LYMPH NODES: Unremarkable. No enlarged lymph nodes. IMPRESSION: 1. No evidence of pulmonary embolism. 2. Mild emphysema. 3. Right thyroid nodule. Recommend non-emergent thyroid ultrasound. RECOMMENDATION: Given the presence of pulmonary emphysema, an independent risk factor for lung cancer, consider evaluating the patient for a low-dose CT lung cancer screening program. EXAM: XR Chest, 1 View CLINICAL HISTORY: The patient is 69 years old and is Female; CHEST PAIN TECHNIQUE: Frontal view of the chest. COMPARISON: No relevant prior studies available. FINDINGS: LUNGS: Unremarkable. No consolidation. PLEURAL SPACE: Unremarkable. No pneumothorax. HEART: Unremarkable. No cardiomegaly. MEDIASTINUM: Unremarkable. Normal mediastinal contour. BONES/JOINTS: Degenerative change of the bones is noted. No acute fracture. VASCULATURE: Atherosclerosis of the aorta is present. UPPER ABDOMEN: Unremarkable as visualized. IMPRESSION: No acute cardiopulmonary process. Conclusions/Impression: Hyponatremia -Change IVF to NS with daily MVI -BMP q4h Hypokalemia -Replete as ordered Hypomagnesemia -Replete as ordered Hypophosphatemia -Replete as ordered Hyperglycemia A1C 5 -RISS prn Toxic Metabolic Encephalopathy -Continue sodium correction Hospitalist note reviewed Patient care 35 min
[2024-07-22 22:34] LABS: Anion Gap 12.1 mEq/L (5.0-15.0); Potassium 4.1 mEq/L (3.5-5.1)
[2024-07-23] MEDS: NA CHLORIDE 0.9% 1,000 ML IV SCH (00:50)
[2024-07-23 02:59] LABS: Anion Gap 11.7 mEq/L (5.0-15.0); BUN Blood Urea Nitrogen 3 mg/dL (7-18); Bicarbonate 26 mEq/L (21-32); Glucose Level 113 mg/dL (74-106); Potassium 3.7 mEq/L (3.5-5.1); Sodium Level 130 mEq/L (136-145)
[2024-07-23 03:10] LABS: Glomerular Filtration Rate 121 ml/min (=/>90)
[2024-07-23 06:01] LABS: ALT/SGPT 23 U/L (13-56); AST/SGOT 13 U/L (15-37); Albumin 2.8 g/dL (3.4-5.0); Albumin/Globulin Ratio 1.2 (1.1-1.8); Alkaline Phosphatase 56 U/L (45-117); Anion Gap 10.4 mEq/L (5.0-15.0); BUN Blood Urea Nitrogen 4 mg/dL (7-18); Bicarbonate 25 mEq/L (21-32); Globulin 2.4 g/dL (2.3-3.5); Glucose Level 110 mg/dL (74-106); Magnesium 2.2 mg/dL (1.6-2.4); Phosphorus 2.4 mg/dL (2.5-4.9); Potassium 3.4 mEq/L (3.5-5.1); Protein, Total 5.2 g/dL (6.4-8.2); Sodium Level 129 mEq/L (136-145)
[2024-07-23 06:09] LABS: Glomerular Filtration Rate 121 ml/min (=/>90)
[2024-07-23] MEDS: POTASSIUM PHOS IN 0.9 % NACL 15 MMOL/250 ML BAG IV ONE (06:35)
[2024-07-23] MEDS: LOSARTAN POTASSIUM 50 MG TABLET PO SCH (07:53)
[2024-07-23] MEDS: CLOPIDOGREL 75 MG TABLET PO SCH (07:53)
[2024-07-23] MEDS: POTASSIUM CL SA 10 MEQ TAB PO ONE (07:53)
[2024-07-23] MEDS ORDERED: FOLIC ACID 1 MG, MULTIVITAMINS INJ 10 ML, THIAMINE HCL 100 MG in NA CHLORIDE 0.9% 1,000 ML IV SCH (09:00)
[2024-07-23 10:52] LABS: Anion Gap 9.1 mEq/L (5.0-15.0); Potassium 4.1 mEq/L (3.5-5.1)
--- NOTE | 2024-07-23 11:53 | P.PN ---
Nephrology Pt remains in the ICU, mental status improved, PO intake still low, no N/V, remains on IVF, lytes repleting Vitals, medications, blood work and imaging reviewed in the chart General: In no apparent distress, non agitated HEENT: Atraumatic, not needing O2 Neck: Supple Respiratory: Normal air movement Cardiovascular: No edema, Regular rate/rhythm Gastrointestinal: NT, Non-distended Musculoskeletal: No contractures Integumentary: No rashes Neurological: Normal speech, awake, conversive, no tremors Conclusions/Impression: Acute severe hypotonic hypovolemic hyponatremia -Na level back up after attempts the prior day to slow/reverse initial rapid correction. -Current Na level of 130 is acceptable 48h post presentation -D/c NS IVF, since PO intake poor, will place on some salt tabs from this evening Hypokalemia -Cont to replete Hypophosphatemia -Repleted with IV KPhos, trend
--- NOTE | 2024-07-23 13:07 | P.PN ---
Subjective Date of Service: 07/23/24 Chief Complaint: AMS Patient is is doing much better today. She is awake and communicating meaningfully, oriented x 2. She denies any complaint. She tolerated some regular diet. Sodium level has improved to 130. Physical Examination - Vital Signs Temperature: 97.3 F Blood Pressure: 153/69 Pulse: 61 Respirations: 18 Pulse Ox (%): 98 - Studies Medications List Reviewed: Yes Assessment And Plan - Plan My physical exam Diagnosis Acute metabolic encephalopathy Leukocytosis. Hyponatremia Hypokalemia Hypomagnesemia Elevated troponin Chronic pain GERD Plan: Acute metabolic encephalopathy Hyponatremia Acute metabolic encephalopathy likely secondary to dehydration and hyponatremia. Hyponatremia likely secondary to dehydration. Status post 3% hypertonic saline, transition to D5 water to curb sodium overcorrection Nephrology is following and managing. Status post DDAVP. D5 water later changed to IV NS Continue to monitor BMP. Hypokalemia Hypomagnesemia Hypophosphatemia Status post IV potassium replacement Potassium level corrected for now Monitor and replete other electrolytes as needed. Elevated troponin/NSTEMI type II Cardiology input appreciated. Patient is on heparin drip. Need to complete heparin drip in 48 hours. Leukocytosis Improving. Blood cultures have shown no growth Continue antibiotics Monitor CBC. Chronic pain syndrome Hold gabapentin given AMS [place] as needed for pain. 07/23 Mental status significantly improved, patient is awake and alert. Sodium level is improved to 130. IV fluid discontinued. Nephrology is following and considering sodium tablet. Continue to monitor and correct electrolytes. Leukocytosis improving. Blood culture shows no growth. Continue IV Zosyn. Downgrade from ICU to the medical floor Continue to monitor BMP. DVT prophylaxis: On heparin drip. Advanced directive: Full code
[2024-07-23] MEDS: SODIUM CHLORIDE 1 GM TAB PO SCH (17:07)
[2024-07-23 17:28] LABS: Absolute Lymphocytes (CBC) 1.9 K/uL (0.7-4.9); Absolute Monocytes 0.7 K/uL (0.1-1.3); Absolute Neutrophil 4.7 K/uL (1.8-8.0); Basophils % 0.4 % (0-1.3); Eosinophils % 0.2 % (0-4.4); Hematocrit 35.4 % (36.0-45.0); Hemoglobin 12.5 g/dL (12.0-15.0); Lymphocytes % 26.3 % (15.3-44.8); MCH 33.4 pg (27.0-35.0); MCHC 35.3 g/dL (32.0-36.0); MCV 94.7 fL (80-100); MPV 7.4 fL (7.6-11.3); Monocytes % 9.6 % (3.3-12.3); Neutrophils % 63.5 % (41.7-73.7); Nucleated Red Blood Cells % 0.1 % (0-0); Platelets 210 thou/uL (152-406); RBC Red Blood Cell Count 3.74 M/uL (3.86-4.86); Red Cell Distribution Width 13.4 % (12.1-15.2)
[2024-07-23] MEDS: MORPHINE 2 MG/ML SYR IV ONE (20:19)
[2024-07-23] MEDS: HYDROCODONE/APAP 7.5/325 MG TAB PO PRN (23:28)
[2024-07-24 06:17] LABS: Anion Gap 9.2 mEq/L (5.0-15.0); Phosphorus 3.2 mg/dL (2.5-4.9); Potassium 3.2 mEq/L (3.5-5.1)
[2024-07-24] MEDS: KCL 20 MEQ/100 mL IVPB 20 MEQ/100 ML BAG IV SCH (07:50)
--- NOTE | 2024-07-24 12:25 | P.PN ---
Subjective Date of Service: 07/24/24 Chief Complaint: AMS Patient has no new complaint today. She ambulated with therapy yesterday. She she is tolerating regular diet Sodium level is stable around 130. Physical Examination - Vital Signs Temperature: 97.3 F Blood Pressure: 161/70 Pulse: 66 Respirations: 27 Pulse Ox (%): 98 - Studies Medications List Reviewed: Yes Assessment And Plan - Plan Physical examination General: Alert and oriented x3, NAD, HEENT: Conjunctiva not pale, anicteric sclera Neck: Supple, no elevated JVD Heart: Heart sounds 1 and 2 normal, regular rhythm, normal rate, no pedal edema Lungs: Clear to auscultation bilaterally, adequate breath sounds bilaterally, no rhonchi or crackles. Abdomen: Soft, nondistended, nontender, normal bowel sounds. Extremities: No tenderness, no deformity Skin: Normal skin turgor, no rash, no nodules or ulcers. Neuro: No focal motor deficit. Normal speech. Psychiatry: Normal mood, no agitation. Diagnosis Acute metabolic encephalopathy-resolved Leukocytosis-resolved Hyponatremia Hypokalemia Hypomagnesemia Elevated troponin Chronic pain GERD Plan: Acute metabolic encephalopathy Hyponatremia Acute metabolic encephalopathy likely secondary to dehydration and hyponatremia. Hyponatremia likely secondary to dehydration. Status post 3% hypertonic saline, transition to D5 water to curb sodium overcorrection Nephrology is following and managing. Status post DDAVP. D5 water later changed to IV NS Continue to monitor BMP. Hypokalemia Hypomagnesemia Hypophosphatemia Status post IV potassium replacement Potassium level corrected for now Monitor and replete other electrolytes as needed. Elevated troponin/NSTEMI type II Cardiology input appreciated. Patient is on heparin drip. Need to complete heparin drip in 48 hours. Leukocytosis Improving. Blood cultures have shown no growth Continue antibiotics Monitor CBC. Chronic pain syndrome Hold gabapentin given AMS [place] as needed for pain. 07/23 Mental status significantly improved, patient is awake and alert. Sodium level is improved to 130. IV fluid discontinued. Nephrology is following and considering sodium tablet. Continue to monitor and correct electrolytes. Leukocytosis improving. Blood culture shows no growth. Continue IV Zosyn. Downgrade from ICU to the medical floor Continue to monitor BMP. 07/24 AMS resolved, mental status is currently at baseline. Sodium level is stable around 130. IV fluid discontinued Patient is on sodium tablets per Nephrology Patient is tolerating diet Discontinue IV antibiotics Continue PT Discharge planning. DVT prophylaxis: lovenox Advanced directive: Full code
[2024-07-24] MEDS ORDERED: MORPHINE 2 MG/ML SYR IV PRN ×2 (17:52→17:56)
[2024-07-24] MEDS: POTASSIUM 25 MEQ EFFERV TAB PO ONE (19:56)
[2024-07-24 22:17] VITALS: O2SAT 92
[2024-07-25 05:35] LABS: Anion Gap 12.6 mEq/L (5.0-15.0); Potassium 3.6 mEq/L (3.5-5.1)
[2024-07-25] MEDS: ENOXAPARIN 40 MG/0.4 ML SQ SCH (08:48)
[2024-07-25] MEDS: MORPHINE 4 MG/ML SYR IV PRN (11:56)
--- NOTE | 2024-07-25 13:49 | P.DS ---
Admission Date: 07/21/24 Discharge Date: 07/25/24 Disposition: ROUTINE DISCHARGE Discharge Condition: FAIR Reason for Admission: AMS Brief History of Present Illness: 69-year-old with a past medical history of hypertension, esophagitis, gastroparesis presented with acute confusion. Patient unable to obtain history due to the confusion. Blood work in the ED showed severe hyponatremia. Chest x-ray unremarkable and showed no acute disease. CT of thorax showed evidence of emphysema, right thyroid nodule. Patient was hospitalized for further management. Hospital Course: Diagnosis Acute metabolic encephalopathy-resolved Leukocytosis-resolved Hyponatremia Hypokalemia Hypomagnesemia Elevated troponin Chronic pain GERD Emphysema Patient admitted to the ICU and the following medical problems addressed: Acute metabolic encephalopathy Hyponatremia Acute metabolic encephalopathy likely secondary to dehydration and hyponatremia. Hyponatremia likely secondary to dehydration. Status post 3% hypertonic saline, transitioned to D5 water to curb sodium overcorrection Nephrology is following and managing. Status post DDAVP. D5 water later changed to IV NS. Sodium level improved to the 130s. Altered mental status resolved. Patient is ambulating and currently tolerating diet. IV NS transition to oral sodium tablets supplementation. Patient overall clinically improved and deemed stable for discharge. Hypokalemia Hypomagnesemia Hypophosphatemia Electrolytes were replaced as needed. Elevated troponin/NSTEMI type II Patient seen by cardiology for elevated troponin She completed at least 48 hours of heparin drip. Troponin trended flat suggesting demand ischemia. Follow-up with cardiology as outpatient. Leukocytosis Leukocytosis resolved Blood cultures showed no growth Patient treated empirically with IV antibiotics and discontinued. Chronic pain syndrome Hold gabapentin given AMS and resumed on discharge [place] was given as needed for pain. Patient evaluated by PT and she was able to ambulate independently. Vitals are stable. Vital Signs/Physical Exam: Temp Pulse Resp BP Pulse Ox 98.1 F 87 16 163/73 H 92 07/25/24 12:00 07/25/24 12:00 07/25/24 12:00 07/25/24 12:07/25/24 12:00 General: Alert, In no apparent distress, Oriented x3 HEENT: Mucous membr. moist/pink Neck: JVD not distended Respiratory: Clear to auscultation bilaterally, Normal air movement Cardiovascular: No edema, Regular rate/rhythm, Normal S1 S2 Gastrointestinal: Soft and benign, Non-distended, No tenderness Musculoskeletal: No swelling Integumentary: No rashes, No cyanosis Neurological: Normal strength at 5/5 x4 extr Laboratory Data at Discharge: WBC 7.30 thou/uL (4.3-10.9) 07/23/24 17:08 Hgb 12.5 g/dL (12.0-15.0) 07/23/24 17:08 Hct 35.4 % (36.0-45.0) L 07/23/24 17:08 Plt Count 210 thou/uL (152-406) 07/23/24 17:08 PT 11.9 SECONDS (10.0-13.0) 07/20/24 23:20 INR 1.05 07/20/24 23:20 APTT 61.5 SECONDS (24.3-36.9) H 07/24/24 05:20 Sodium 132 mEq/L (136-145) L 07/25/24 05:15 Potassium 3.6 mEq/L (3.5-5.1) 07/25/24 05:15 BUN 7 mg/dL (7-18) 07/25/24 05:15 Creatinine 0.30 mg/dL (0.55-1.02) L 07/25/24 05:15 Glucose 112 mg/dL (74-106) H 07/25/24 05:15 Uric Acid 1.6 mg/dL (2.6-6.0) L 07/22/24 04:00 Phosphorus 3.2 mg/dL (2.5-4.9) 07/24/24 05:20 Magnesium 2.0 mg/dL (1.6-2.4) 07/24/24 05:20 Total Bilirubin 1.0 mg/dL (0.2-1.0) 07/23/24 05:05 AST 13 U/L (15-37) L 07/23/24 05:05 ALT 23 U/L (13-56) 07/23/24 05:05 Alkaline Phosphatase 56 U/L (45-117) 07/23/24 05:05 Home Medications: Gabapentin 800 mg PO TID 06/10/23 Losartan Potassium 50 mg PO DAILY AFTER SUPPER 06/10/23 Ondansetron [Zofran (Odt)*] 4 mg PO Q6H PRN #20 tab 03/23/24 Pantoprazole [Protonix Tab*] 40 mg PO DAILY 30 Days #30 tab 04/21/24 Clopidogrel Bisulfate [Plavix*] 75 mg PO DAILY #30 tab 07/25/24 Hydrocodone 7.5/APAP 325 [[place] 7.5/325 mg*] 1 tab PO Q4H PRN #15 tab 07/25/24 Sodium Chloride Tab [Sodium Chloride*] 1 gm PO BIDWM #60 tab 07/25/24 carvediloL [Coreg*] 3.125 mg PO BID 6AM 6PM #60 tab 07/25/24 New Medications: carvediloL [Coreg*] 3.125 mg PO BID 6AM 6PM #60 tab Hydrocodone 7.5/APAP 325 [[place] 7.5/325 mg*] 1 tab PO Q4H PRN #15 tab PRN Reason: Pain Scale 5-7 (Moderate) Clopidogrel Bisulfate [Plavix*] 75 mg PO DAILY #30 tab Sodium Chloride Tab [Sodium Chloride*] 1 gm PO BIDWM #60 tab Physician Discharge Instructions: You have a thyroid nodule that needs to be followed as an outpatient with thyroid ultrasound, radioiodine scan and biopsy as needed. Diet: AHA Activity: Fall precautions Followup: Mono Mitchell DO [ACTIVE - CAN ADMIT] - 1 Week Rosales Baum MD [ACTIVE - CAN ADMIT] - 1-2 Weeks NONE,NONE [Primary Care Provider] - 1-2 Weeks Time spent managing pt's care (in minutes): 40
[2024-07-25 17:08] VITALS: BP 148/72; TEMP 97.5
== END 2024-07-25 18:15 | disposition home or self-care (01) | DRG 640 ==
LOC: ER 22:11 → ERHOLD 07-21 02:42 → 3RD-ICU 07-21 13:40 → 2ND 07-24 16:31
PROVIDERS: ADMIT Family Medicine; ATTEND Internal Medicine
PROC: 4A033R1 Measurement of Arterial Saturation, Peripheral, Percutaneous Approach (ICD-10-PCS; principal; 2024-07-21)
PROC: 0T9B70Z Drainage of Bladder with Drainage Device, Via Natural or Artificial Opening (ICD-10-PCS; 2024-07-21)
PROC: 02HV33Z Insertion of Infusion Device into Superior Vena Cava, Percutaneous Approach (ICD-10-PCS; 2024-07-21)
DX: E87.1 Hypo-osmolality and hyponatremia (principal); G92.8 Other toxic encephalopathy; J18.9 Pneumonia, unspecified organism; I21.A1 Myocardial infarction type 2; J44.1 Chronic obstructive pulmonary disease with (acute) exacerbation; R64 Cachexia; E46 Unspecified protein-calorie malnutrition; J44.0 Chronic obstructive pulmonary disease with (acute) lower respiratory infection; E86.0 Dehydration; E87.6 Hypokalemia; E83.42 Hypomagnesemia; G89.4 Chronic pain syndrome; E78.00 Pure hypercholesterolemia, unspecified; E83.39 Other disorders of phosphorus metabolism; E11.65 Type 2 diabetes mellitus with hyperglycemia; E11.40 Type 2 diabetes mellitus with diabetic neuropathy, unspecified; I10 Essential (primary) hypertension; K21.9 Gastro-esophageal reflux disease without esophagitis; R79.89 Other specified abnormal findings of blood chemistry; Z23 Encounter for immunization; Z88.5 Allergy status to narcotic agent; Z88.1 Allergy status to other antibiotic agents; Z68.22 Body mass index [BMI] 22.0-22.9, adult; Z90.49 Acquired absence of other specified parts of digestive tract; Z79.899 Other long term (current) drug therapy; Z90.710 Acquired absence of both cervix and uterus
CPT/HCPCS: 36415; 36556; 36600; 70450; 71045; 71275; 72125; 74018; 80048; 80053; 80076; 80307; 82570; 82805; 82947; 83036; 83605; 83735; 83880; 83935; 84100; 84132; 84145; 84295; 84300; 84443; 84484; 84550; 85025; 85610; 85730; 86140; 87040; 93005; 93306; 94640; 96372; 97116; 97161; 99285; J0696; J1644; J1650; J2185; J2270; J2405; J2543; J2597; J2919; J3370; J3411; J3475; J3480; J3486; J7030; J7040; J7050; J7131; J7613; J7644; Q9967

== ENCOUNTER 2024-07-30 16:55 | Inpatient (IN) | payer OTHER ==
--- OUTSIDE RECORDS SUMMARY | 2024-07-30 17:03 | XMS REPORT | Continuity of Care Document ---
Author Name Unknown Address [address] [facility] [address] [place] [address] [facility] [place] Address 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 Name Role Phone Pcp, Patient Does Not Have A Primary Care Physic juan Doctor Unassigned, [place] Attending Clinician U Maegan Valdez MD Attending Clinician [phone] MAEGAN HEAD Attending Clinician Unavailabl e AMBREEN_FARHANA Attending Clinician Unavailable AMBREEN_DARRICKA Admitting Clinician Unavailable Payers Payer Name Policy Type Policy Number Effective Date Expirati on Date Source [facility] (MEDICARE REPLACEMENT HMO) [id number] 2022 00:00:00 Allergies, Adverse Reactions, Alerts Allergy Name Allergy Type Status Severity Reaction(s) Onset Date Inactive Date Treating Clinician Comments Source Sulfa (Sulfona mide Antibiot ics) Propensi ty to adverse reaction to drug Inactiv e 07-21 00:00: 00 Jaden Ponce NO KNOWN ALLERGIE S Drug Class Active [facility] Social History Social Habit Start Date Stop Date Quantity Comments Source Exposure to SARS-CoV-2 (event) 2022-09-27 00:00:00 2022-10-07 14:36:00 Not sure [facility] Sex Assigned At 1955 00:00:00 1955 00:00:00 [facility] Smoking Status Start Date Stop Date Source Tobacco smoking consumption unknown [facility] Medications Ordered Medication Name Filled Medication Name Start Date Stop Date Current Medication? Ordering Clinician Indication Dosage Frequency Signature (SIG) Comments Components Source olopatadine 0.2 % eye drops 2023-05 0- 00:00: 00 Yes 1% Jaden Ponce promethazin e 25 mg tablet 2023-05 00:00: 00 Yes mg Jaden Ponce albuterol sulfate HFA 90 mcg/actuati on aerosol inhaler 2023-05- 00:00: 00 Yes mcg/act uation Jaden Ponce prednisone 50 mg tablet 2023-05- 00:00: 00 Yes 1mg Jaden Ponce montelukast [...] e-DM 6.25 mg-15 mg/5 mL oral syrup 08-22 00:00: 00 Yes 5mg/5 mL Jaden Ponce albuterol sulfate HFA 90 mcg/actuati on aerosol inhaler 08-07 00:00: 00 Yes 12mcg/a ctuatio n Jaden Ponce losartan 50 mg tablet - 00:00: 00 Yes 1mg Jaden Ponce montelukast 10 mg tablet - 00:00: 00 Yes 1mg Jaden Ponce promethazin e-DM 6.25 mg-15 mg/5 mL oral syrup - 00:00: 00 Yes 5mg/5 mL Jaden oPnce promethazin e 25 mg tablet - 00:00: 00 Yes mg Jaden Ponce losartan 50 mg tablet 08-06 00:00: 00 Yes 1mg Jaden Ponce montelukast 10 mg tablet 08-03 00:00: 00 Yes mg Jaedn Ponce fenofibrate 160 mg tablet 08-03 00:00: 00 Yes mg Jaden Ponce dexamethaso ne 4 mg tablet 08-03 00:00: 00 Yes mg Jaden Ponce azelastine 137 mcg-flutica sone 50 mcg/spray nasal spray 08-03 00:00: 00 Yes mcg/spr ay Jaden Ponce USE 1 SPRAY IN EACH NOSTRIL TWICE DAILY. 08-03 00:00: 00 Yes [id number] Jaden Ponce INHALE 1 PUFF TWICE DAILY. 08-03 00:00: 00 Yes [id number] 5 Jaden Ponce TAKE 1 TABLET BY MOUTH DAILY 08-03 00:00: 00 Yes 10 Jaden Ponce TAKE 1 TABLET BY MOUTH 4 TIMES DAILY. 08-03 00:00: 00 Yes 800 Jaden Ponce TAKE 1 TABLET BY MOUTH DAILY 08-03 00:00: 00 Yes 50 Jaden Ponce INHALE 2 PUFFS BY MOUTH EVERY 4 TO 6 HOURS NEEDED. 08-03 00:00: 00 Yes [id number] Jaden Ponce 1 CAP EVERY 8 HOURS NEEDED FOR COUGH 08-03 00:00: 00 09-30 00:00 :00 No 200 Jaden Ponce TAKE 2 TABLETS ON DAY 1 THEN TAKE 1 TABLET A DAY FOR 4 DAYS. 08-03 00:00: 00 09-30 00:00 :00 No 250 Jaden Ponce TAKE 5 ML EVERY 6 HOURS NEEDED FOR COUGH 08-03 00:00: 00 09-30 00:00 :00 No [id number] Jaden Ponce TAKE 1 TAB 3 TIMES A DAY NEEDED FOR NAUSEA 08-03 00:00: 00 09-30 00:00 :00 No 25 Jaden Ponce albuterol sulfate HFA 90 mcg/actuati on aerosol inhaler 08-01 00:00: 00 Yes mcg/act uation Jaden Ponce TAKE 1 TABLET BY MOUTH DAILY 3-04 00:00: 00 09-30 00:00 :00 No 50 Jaden Ponce oxycodone-a cetaminophe n 10 mg-325 mg tablet 3- 00:00: 00 Yes mg Jaden Ponce gabapentin 800 mg tablet 2- 00:00: 00 Yes mg Jaden Ponce INHALE 2 PUFFS BY MOUTH EVERY 4 TO 6 HOURS NEEDED. 2 00:00: 00 09-30 00:00 :00 No [id number] Jaden Ponce losartan 50 mg tablet 06-18 [...] 06-18 00:00: 00 09-30 00:00 :00 No [id number] Jaden Ponce AMITRIPTYLI NE HYDROCHLORI DE 50 MG TABS 06-17 00:00: 00 Yes Jaden Ponce CIPROFLOXAC IN HYDROCHLORI DE 500 MG TABS 06-17 00:00: 00 Yes Jaden Ponce PROMETHAZIN E HYDROCHLORI DE 25 MG TABS 06-17 00:00: 00 Yes Jaden Ponce GABAPENTIN 800 MG TABS 06-17 00:00: 00 Yes Jaden Ponce METOCLOPRAM JAVIER HCL 5 MG TABS 1- 00:00: 00 Yes Jaden Ponce PREDNISONE 20 [...] 2022-05 00:00: 00 09-30 00:00 :00 No [id number] Jaden Ponce PANTOPRAZOL E SOD DR 40 MG 2022-05 00:00: 00 Yes Jaden Ponce LOSARTAN POTASSIUM 50 MG 2022-05 00:00: 00 Yes Jaden Ponce 1 CAP EVERY 8 HOURS NEEDED FOR COUGH 2022-05 0 00:00: 00 09-30 00:00 :00 No 200 Jaden Ponce INHALE 1 PUFF TWICE DAILY. 2022-05 0 00:00: 00 09-30 00:00 :00 No [id number] 5 Jaden Ponce TAKE 5 ML EVERY 4 TO 6 HOURS NEEDED FOR COUGH. 2022-05 0- 00:00: 00 09-30 00:00 :00 No [id number] Jaden Ponce TAKE 2 TABS DAILY THE [...] TRELEGY ELLIPTA 200-62.5-25 01-15 00:00: 00 Yes [id number] Jaden Ponce TAKE 2 TABS DAILY THE FIRST 5 DAYS,THEN 1 TAB DAILY THE LAST 5 DAYS 01-15 00:00: 00 09-30 00:00 :00 No 20 Jaden Ponce USE 1 SPRAY IN EACH NOSTRIL TWICE DAILY. 01-15 00:00: 09-30 00:00 :00 No [id number] Jaden Ponce TAKE 1 TABLET TWICE DAILY WITH FOOD. 01-15 00:00: 00 09-30 00:00 :00 No [id number] Jaden Ponce INSTILL 2 DROPS INTO BOTH EYES ONCE DAILY. 01-15 00:00: 00 09-30 00:00 :00 No 2 Jaden Ponce TAKE 5 ML EVERY 4 TO 6 HOURS NEEDED FOR COUGH. 01-15 00:00: 00 09-30 00:00 :00 No [id number] Jaden Ponce TAKE 1 TABLET BY MOUTH [...] 12-19 00:00: 00 09-30 00:00 :00 No [id number] Jaden Ponce INHALE 2 PUFFS EVERY 4 TO 6 HOURS NEEDED. 12-19 00:00: 00 09-30 00:00 :00 No [id number] Jaden Ponce TAKE 1 TABLET BY MOUTH [...] 10-30 00:00: 00 09-30 00:00 :00 No [id number] Jaden Ponce TAKE 1 TABLET BY MOUTH [...] 10-07 21:45: 00 10-07 20:33 :00 No [id number] 40mg [facility] TRAMADOL HCL 50 MG 10-07 00:00: 00 Yes Jaden Ponce traMADoL 50 mg tablet 10-07 00:00: 00 10-15 04:59 :00 No [id number] 50mg Take 1 tablet by mouth every 6 (six) hours as needed for Pain (scale 4-6) for up to 7 days. Indication s: acute pain [facility] TAKE 1 TABLET BY MOUTH EVERY DAY 10-01 00:00: 00 Yes Jaden Ponce HYDROCODONE -ACETAMIN 5-325 MG 10-01 00:00: 00 Yes Jaden Ponce amLODIPine 5 mg tablet 10-01 00:00: 00 Yes 5mg Take 1 tablet by mouth in the morning. [facility] NEOMYCIN-PO LYMYXIN-HC EAR SOLN 08-21 00:00: [...] 08-21 00:00: 00 09-30 00:00 :00 No [id number] Jaden Ponce INSTILL 3 DROPS IN BOTH EARS 3-4 TIMES DAILY. 08-21 00:00: 00 09-30 00:00 :00 No Jaden Ponce INHALE 2 PUFFS TWICE DAILY. 08-21 00:00: 00 09-30 00:00 :00 No [id number] Jaden Ponce TAKE 1 TABLET BY MOUTH AT BEDTIME 08-21 00:00: 00 09-30 00:00 :00 No 10 Jaden Serafin Ponce INHALE 2 PUFFS EVERY 4 TO 6 HOURS NEEDED. 08-21 00:00: 00 09-30 00:00 :00 No [id number] Jaden Serafin Ponce pantoprazol e 40 mg EC tablet 08-20 00:00: 00 Yes Landy corrigan [facility] PREDNISONE 20 MG 08-15 00:00: 00 Yes 20 Jaden Serafin Ponce ALBUTEROL HFA 90 MCG INHALER 08-15 00:00: 00 Yes 90 Jaden Serafin Ponce INHALE 2 PUFFS EVERY 4 TO 6 HOURS NEEDED. 08-15 00:00: 00 09-30 00:00 :00 No [id number] Jaden Serafin Ponce TAKE 5 ML EVERY 4 TO 6 HOURS NEEDED FOR COUGH. 08-15 00:00: 00 09-30 00:00 :00 No [id number] Jaden Serafin Ponce 1 CAP EVERY 8 HOURS NEEDED FOR COUGH 08-15 00:00: 00 09-30 00:00 :00 No 200 Jaden Serafin Ponce INHALE 2 PUFFS TWICE DAILY. 08-15 00:00: 00 09-30 00:00 :00 No [id number] Jaden Serafin Ponce TAKE 1 TABLET BY MOUTH AT BEDTIME 08-15 00:00: 00 09-30 00:00 :00 No 10 Jaden Serafin Ponce TAKE 1 TABLET BY MOUTH DAILY 07-26 00:00: 00 09-30 00:00 :00 No 40 Jaden Serafin Ponce TAKE 1 TABLET BY MOUTH AT BEDTIME 3- 00:00: 00 09-30 00:00 :00 No 10 Jaden Serafin Ponce TAKE 1 TABLET BY MOUTH DAILY 3- 00:00: 00 09-30 00:00 :00 No 10 Jadenluna Ponce GABAPENTIN 800 MG 2-16 00:00: 00 Yes [...] - 00:00: 00 09-30 00:00 :00 No [id number] Jaden Ponce TAKE 1 TABLET BY MOUTH [...] 2021-05 00:00: 00 09-30 00:00 :00 No [id number] Jaden Ponce TAKE 1 TABLET BY MOUTH EVERY DAY FOR BACK PAIN 2021-05 00:00: 00 Yes Jaden Ponce METHYLPREDN ISOLONE 4 MG DOSEPK 2021-05 2- 00:00: 00 Yes Jaden Ponce PREDNISONE 20 MG 2021-05- 00:00: 00 Yes Jaden Ponce AZITHROMYCI N 250 MG 2021-05 00:00: 00 Yes Jaden Ponce INHALE 2 PUFFS TWICE DAILY. 2021-05- 00:00: 00 09-30 00:00 :00 No [id number] Jaden Ponce Dose Unknown 2021-05 2- 00:00: 00 Yes 20 Jaden Ponce PREGABALIN 300 MG CAPSULE</Te xt> <Code> <Value>0022 [id number]</Va lue> <CodingSyst em>NDC</Cod ingSystem> </Code> 2021-05 2- 00:00: 00 Yes 300 Jaden Ponce Dose Unknown 2021-05 2- 00:00: 00 Yes Jaden Ponce Dose Unknown 2021-05 2- 00:00: 00 Yes Jaden Ponce Dose Unknown 2021-05 2- 00:00: 00 Yes Jaden Ponce Dose Unknown 2021-05 2- 00:00: 00 Yes Jaden Ponce PROAIR HFA 90 MCG INHALER</Te xt> <Code> <Value>[id number] [id number]</Va lue> <CodingSyst em>NDC</Cod ingSystem> </Code> 2021-05 2- 00:00: 00 Yes Jaden Ponce Dose Unknown 2021-05 2- 00:00: 00 Yes Jaden Ponce AMOX-CLAV 875-125 MG TABLET</Nicolás t> <Code> <Value>0009 [id number]</Va lue> <CodingSyst em>NDC</Cod ingSystem> </Code&gt 2021-05 2- 00:00: 00 Yes Jaden Ponce HYDROCHLORO THIAZIDE 25 MG TAB</Text> <Code> <Value>0017 [id number]</Va lue> <CodingSyst em>NDC</Cod ingSystem> </Code& 2021-05 2- 00:00: 00 Yes 25 Jaden Ponce Dose Unknown 2021-05 2- 00:00: 00 Yes Jaden Ponce PREGABALIN 150 MG CAPSULE</Te xt> <Code> <Value>0022 [id number]</Va lue> <CodingSyst em>NDC</Cod ingSystem> </Code> 2021-05 2- [...] PREGABALIN 300 MG CAPSULE</Te xt> <Code> <Value>0022 [id number]</Va lue> <CodingSyst em>NDC</Cod ingSystem> </Code> 2021-05 00:00: 00 No 300 Dose Unknown 2021-05 00:00: 00 No Dose Unknown 2021-05 00:00: 00 No Dose Unknown 2021-05 00:00: 00 No Dose Unknown 2021-05 00:00: 00 No INHALE 1 PUFF TWICE DAILY. 2021-05 00:00: 00 No [id number] 5 INHALE 2 PUFFS EVERY 4 TO 6 HOURS NEEDED. 2021-05 00:00: 00 No [id number] PROAIR HFA 90 MCG INHALER</Te xt> <Code> <Value>2169 [id number]</Va lue> <CodingSyst em>NDC</Cod ingSystem> </Code> 2021-05 00:00: 00 No Dose Unknown 2021-05 00:00: 00 No AMOX-CLAV 875-125 MG TABLET</Nicolás t> <Code> <Value>0009 [id number]</Va lue> <CodingSyst em>NDC</Cod ingSystem> </Code&gt 2021-05 00:00: 00 No HYDROCHLORO THIAZIDE 25 MG TAB</Text> <Code> <Value>0017 [id number]</Va lue> <CodingSyst em>NDC</Cod ingSystem> </Code& 2021-05 00:00: 00 No 25 TAKE 1 TABLET AT BEDTIME. 2021-05 00:00: 00 No 20 Dose Unknown 2021-05 00:00: 00 No PREGABALIN 150 MG CAPSULE</Te xt> <Code> <Value>0022 [id number]</Va lue> <CodingSyst em>NDC</Cod ingSystem> </Code> 2021-05 00:00: 00 No 150 TAKE 5 ML DAILY AT BEDTIME. 2021-05 2 00:00: 00 No [id number] TAKE 1 TABLET DAILY. 2021-05 00:00: 00 [...] 2021-05 00:00: 00 09-30 00:00 :00 No [id number] 5 Jaden Ponce INHALE 2 PUFFS EVERY 4 TO 6 HOURS NEEDED. 2021-05 00:00: 00 09-30 00:00 :00 No [id number] Jaden Ponce TAKE 1 TABLET AT BEDTIME. 2021-05 00:00: 00 09-30 00:00 :00 No 20 Jaden Ponce TAKE 5 ML DAILY AT BEDTIME. 2021-05 00:00: 00 09-30 00:00 :00 No [id number] Jaden Ponce TAKE 1 TABLET DAILY. 2021-05 00:00: 00 09-30 00:00 :00 No 160 Jaden Ponce TAKE 1 TABLET 4 TIMES DAILY. 2021-05 00:00: 00 09-30 00:00 :00 No 800 Jaden Ponce INHALE 2 PUFFS TWICE DAILY. 2021-05 00:00: 00 09-30 00:00 :00 No [id number] Jaden Serafin Ponce TRELEGY ELLIPTA 200-62.5-25 2021-05 1-08 00:00: 00 Yes Jadenluna Ponce AZITHROMYCI N 250 MG 2021-05 0-27 00:00: 00 Yes 250 Jaden Serafin Ponce TRELEGY ELLIPTA 200-62.5-25 2022-1 0-27 00:00: 00 Yes [id number] Jaden Ponce ATORVASTATI N 20 MG 2021-1 [...] 00:00: 00 No PREGABALIN 300 MG CAPSULE 2022-0 9-19 00:00: 00 No PREGABALIN 300 MG CAPSULE 2-0 9-19 00:00: 00 No Lyrica 150 mg capsule 2022-0 8-16 00:00: 00 Yes 1mg Jaden Ponce [...] Jaden Ponce prednisone 20 mg tablet 0 715 00:00: 00 Yes mg Jaden Ponce Lyrica 150 mg capsule 715 00:00: 00 Yes 1mg Jaden Ponce TAKE 1 TABLET BY MOUTH TWICE DAILY 15 00:00: 00 Yes 875 Jaden Ponce Dose Unknown 11-30 00:00: 00 Yes 250 Jaden Ponce &lt 0 715 00:00: 00 Yes 300 Jaden Ponce PREGABALIN 150 MG CAPSULE 715 00:00: 00 Yes 150 Jaden Ponce azithromyci n 250 mg tablet 11-30 00:00: 00 No mg prednisone 20 mg tablet 15 00:00: 00 No mg Lyrica 150 mg capsule 0 15 00:00: 00 No 1mg TAKE 1 TABLET BY MOUTH TWICE DAILY 15 00:00: 00 No 875 Dose Unknown 15 00:00: 00 No 250 &lt 2021-0 715 00:00: 00 No 300 azithromyci n 250 mg tablet 15 00:00: 00 No mg prednisone 20 mg tablet 15 00:00: 00 No mg Lyrica 150 mg capsule 15 00:00: 00 No 1mg TAKE 1 TABLET BY MOUTH TWICE DAILY 15 00:00: 00 No 875 Dose Unknown 15 00:00: 00 No 250 &lt 2021-0 715 00:00: 00 No 300 azithromyci n 250 mg tablet 715 00:00: 00 No mg prednisone 20 mg tablet 0 7-15 00:00: 00 No mg Lyrica 150 mg capsule 2021-0 7-15 00:00: 00 No 1mg TAKE 1 TABLET BY MOUTH TWICE DAILY 2021-0 -15 00:00: 00 No 875 Dose Unknown 2021-0 -15 00:00: 00 No 250 &lt 2022-0 7-15 [...] 7- 00:00: 00 No 1mg &lt 2022-0 7-06 00:00: 00 No 20 TAKE 1 TABLET BY MOUTH FOUR TIMES DAILY 2021-0 7-06 00:00: 00 No 600 &lt 2022-0 7-06 00:00: 00 No 300 Dose Unknown 2021-0 7-06 00:00: 00 No 250 pregabalin 300 mg capsule 2-0 6-06 00:00: 00 Yes 1mg Jaden Ponce [...] 2-0 3-30 00:00: 00 No Dose Unknown 2-0 330 00:00: 00 No Dose Unknown 2-0 3-30 00:00: 00 No Dose Unknown 2022-0 3-07 00:00: 00 Yes Jaden Pnoce Dose Unknown 2021-0 3-07 00:00: 00 No Dose Unknown 2-0 3-07 00:00: 00 No Dose Unknown 2-0 3-07 00:00: 00 No albuterol sulfate HFA 90 mcg/actuati on aerosol inhaler 2021-0 2-12 00:00: 00 Yes 12mcg/a ctuatio obdulio Ponce albuterol sulfate HFA 90 mcg/actuati on [...] 1mg Jaden Ponce pregabalin 300 mg capsule 2020-05- [...] tablet 2020-05 0-05 00:00: 00 Yes 1mg Jadenluna Ponce prednisone 20 mg tablet 2020-05 0-05 00:00: 00 Yes mg Jadenluna Ponce gabapentin 300 mg capsule 2020-05 0-05 00:00: 00 Yes 1mg Jadenluna Ponce gabapentin 600 mg tablet 2020-05 0-05 [...] 00 Yes 12mcg/a ctuatio obdulio Stanley Serafin Kris amoxicillin 875 mg-bertha de la cruz clavulanate 125 mg tablet 8- 00:00: 00 Yes 1mg Jaden Serafin Kris gabapentin 600 mg tablet - 00:00: 00 Yes 1mg Jaden Ponce prednisone 20 mg tablet 8- 00:00: 00 Yes mg Jaden Ponce gabapentin 300 mg capsule 12-22 00:00: 00 Yes 1mg Jaden Ponce ProAir [...] mg tablet 01-19 00:00: 00 Yes 1mg Jaden Serafin Ponce gabapentin 300 mg capsule 01-19 00:00: [...] Ponce SHINGRIX VACCINE SHINGRIX VACCINE 2022-05-29 00:00:00 Samanta Ponce Td(adult) unspecified fo Td(adult) unspecified fo 2017-01-21 00:00:00 Samanta Ponce Influenza, seasonal, inj Influenza, seasonal, inj 2015-08-17 00:00:00 Samanta Ponce Tdap Tdap 2014-01-04 00:00:00 Samanta Ponce Vital Signs Vital Name Observation Time Observation Value Comments S ilir Systolic blood pressure 2022-10-07 20:05:00 133 mm[Hg] [facility] Diastolic blood pressure 2022-10-07 20:05:00 70 mm[Hg] [facility] Heart rate 2022-10-07 20:05:00 96 /min [facility] Body height 2022-10-07 20:05:00 152.4 cm [facility] Body weight 2022-10-07 20:05:00 69.854 kg [facility] BMI 2022-10-07 20:05:00 30.08 kg/m2 [facility] BP Systolic 2024-02-25 10:57:00 133 mm[Hg] [...] Systolic 2021-11-30 11:14:00 137 mm[Hg] Step hen F Kris BP Diastolic 2021-11-30 11:14:00 78 mm[Hg] Manny Ponce Weight Measured 2021-11-30 11:14:00 144.20 pounds Jaden Ponce Height Measured 2021-11-30 11:14:00 60.00 inches Jaden Serafin Ponce Body Temperature 2021-11-30 11:14:00 98.00 degrees Jaden Serafin Ponce Heart Rate 2021-11-30 11:14:00 84.00 /min [facility] en F Kris Respiratory Rate 2021-11-30 11:14:00 18.00 /min Jaden [...] EXTERNAL PROVIDER RECORDS 2022-10-21 05:01:00 Doctor Unassigned, [place] [facility] RADIOLOGY DOCUMENTATION 2022-10-11 05:01:00 Doct or Unassigned, [place] [facility] MEDICAL RELEASE/CLEARANCE FORMS 2022-10-09 05:01:00 Doctor Unassigned, [place] [facility] Plan of Care Planned Activity Planned Date Details Comments Source Goal Plan of Care Note [code = 78927-9] Goal Plan of Care Note [code = 81569-6] Goal Plan of Care Note [code = 94345-5] Goal Plan of Care Note [code = 32484-4] Goal Plan of Care Note [code = 11418-4] Goal Plan of Care Note [code = 41575-2] Goal Plan of Care Note [code = 22404-3] Goal Plan of Care Note [code = 30977-0] Goal Plan of Care Note [code = 85680-4] Goal Plan of Care Note [code = 47119-7] Goal Plan of Care Note [code = 44195-6] Goal Plan of Care Note [code = 35237-3] Goal Plan of Care Note [code = 37014-3] Goal Plan of Care Note [code = 17677-9] Goal Plan of Care Note [code = 43603-1] Goal Plan of Care Note [code = 70590-3] Goal Plan of Care Note [code = 41063-4] Goal Plan of Care Note [code = 23315-2] Goal Plan of Care Note [code = 35728-3] Goal Plan of Care Note [code = 91684-0] Goal Plan of Care Note [code = 30924-0] Goal Plan of Care Note [code = 53108-9] Goal Plan of Care Note [code = 60901-8] Goal Plan of Care Note [code = 14208-2] Goal Plan of Care Note [code = 17416-4] Goal Plan of Care Note [code = 09774-8] Goal Plan of Care Note [code = 42686-7] Goal Plan of Care Note [code = 25599-4] Goal Plan of Care Note [code = 01949-9] Goal Plan of Care Note [code = 63228-0] Goal Plan of Care Note [code = 68066-8] Goal Plan of Care Note [code = 17034-5] Goal Plan of Care Note [code = 49877-2] Goal Plan of Care Note [code = 63686-7] Goal Plan of Care Note [code = 78729-6] Goal Plan of Care Note [code = 39969-4] Goal Plan of Care Note [code = 01665-6] Goal Plan of Care Note [code = 46331-0] Goal Plan of Care Note [code = 96520-3] Goal Plan of Care Note [code = 59271-9] Goal Plan of Care Note [code = 61113-1] Goal Plan of Care Note [code = 69473-5] Goal Plan of Care Note [code = 59156-4] Goal Plan of Care Note [code = 69246-6] Goal Plan of Care Note [code = 77244-8] Goal Plan of Care Note [code = 82149-5] Goal Plan of Care Note [code = 21724-2] Goal Plan of Care Note [code = 53246-5] Goal Plan of Care Note [code = 81367-0] Goal Plan of Care Note [code = 82621-0] Goal Plan of Care Note [code = 82808-2] Goal Plan of Care Note [code = 28617-0] Goal Plan of Care Note [code = 89471-1] Goal Plan of Care Note [code = 80265-7] Goal Plan of Care Note [code = 86922-4] Goal Plan of Care Note [code = 83032-4] Goal Plan of Care Note [code = 83283-5] Goal Plan of Care Note [code = 60175-2] Goal Plan of Care Note [code = 49685-4] Goal Plan of Care Note [code = 31560-3] Goal Plan of Care Note [code = 94427-8] Goal Plan of Care Note [code = 78152-5] Goal Plan of Care Note [code = 60607-5] Goal Plan of Care Note [code = 83943-8] Goal Plan of Care Note [code = 27708-4] Goal Plan of Care Note [code = 07995-0] Goal Plan of Care Note [code = 83875-6] Goal Plan of Care Note [code = 39598-0] Goal Plan of Care Note [code = 10833-1] Goal Plan of Care Note [code = 39233-3] Goal Plan of Care Note [code = 31204-7] Goal Plan of Care Note [code = 32438-3] Goal Plan of Care Note [code = 59077-1] Goal Plan of Care Note [code = 54183-9] Goal Plan of Care Note [code = 18434-6] Goal Plan of Care Note [code = 52945-8] Goal Plan of Care Note [code = 31068-9] Goal Plan of Care Note [code = 53096-6] Goal Plan of Care Note [code = 99777-8] Goal Plan of Care Note [code = 84239-9] Goal Plan of Care Note [code = 81490-5] Goal Plan of Care Note [code = 00249-8] Goal Plan of Care Note [code = 59999-7] Encounters Start Date/Time End Date/Time Encounter Type Admission Type Attending [facility] Care Department Encounter ID Source 2024-07-12 09:48:45 2024-07-12 09:48:45 Outpatient [facility] [id number] Jaden F Kris 2024-04-16 11:56:43 2024-04-16 11:56:43 Outpatient [facility] [id number] Jaden Betancourt Kris 2024-03-16 16:43:16 2024-03-16 16:43:16 Outpatient [facility] [id number] Jaden F Kris 2024-02-25 10:41:50 2024-02-25 10:41:50 Outpatient [facility] [id number] Jaden Betancourt Kris 2024-02-25 00:00:00 2024-02-25 00:00:00 Outpatient Visit [facility] [id number] Jaden Ponce 2024-02-06 13:53:09 2024-02-06 13:53:09 Outpatient [facility] [id number] Jaden Betancourt Kris 2024-02-06 00:00:00 2024-02-06 00:00:00 Outpatient Visit [facility] [id number] Jaden Betancourt Kris 2024-01-15 15:58:11 2024-01-15 15:58:11 Outpatient [facility] [id number] Jaden Betancourt Kris 2023-12-15 08:41:47 2023-12-15 08:41:47 Outpatient [facility]FA [id number] Jaden Betancourt Kris 2023-11-13 00:00:00 2023-11-13 00:00:00 Outpatient Visit [facility] [id number] Jaden Betancourt Kris 2023-11-10 14:10:07 2023-11-10 14:10:07 Outpatient [facility] SFA [id number] Jaden Betancourt [place] 2023-10-14 15:51:09 2023-10-14 15:51:09 Outpatient [facility] SFA [id number] Jaden Betancourt [place] 2023-09-15 16:15:18 2023-09-15 16:15:18 Outpatient [facility] SFA [id number] Jaden Betancourt Kris 2023-08-26 15:52:22 2023-08-26 15:52:22 Outpatient [facility] SFA [id number] Jaden Betancourt [place] 2023-08-14 09:36:17 2023-08-14 09:36:17 Outpatient [facility] SFA [id number] Jaden Betancourt [place] 2023-07-14 14:28:32 2023-07-14 14:28:32 Outpatient [facility] SFA [id number] Jaden Betancourt [place] 2023-06-18 10:02:18 2023-06-18 10:02:18 Outpatient [facility] SFA [id number] Jaden Betancourt [place] 2023-06-17 17:18:38 2023-06-17 17:18:38 Outpatient [facility]FA SFA [id number] Jaden Betancourt Kris 2023-06-12 15:47:52 2023-06-12 15:47:52 Outpatient SFA [facility] [id number] Jaden Ponce 2023-04-28 14:22:48 2023-04-28 14:22:48 Outpatient [facility] [id number] Jaden Ponce 2023-03-19 16:04:06 2023-03-19 16:04:06 Outpatient [facility] [id number] Jaden Betancourt Kris 2023-02-27 13:54:38 2023-02-27 13:54:38 Outpatient [facility] [id number] Jaden Betancourt [place] 2023-02-18 14:41:08 2023-02-18 14:41:08 Outpatient [facility] [id number] Jaden Betancourt [place] 2023-01-30 17:52:20 2023-01-30 17:52:20 Outpatient [facility] [id number] Jaden Betancourt [place] 2023-01-14 12:11:29 2023-01-14 12:11:29 Outpatient [facility] [id number] Jaden Betancourt [place] 2022-12-11 17:36:37 2022-12-11 17:36:37 Outpatient [facility] [id number] Jaden Betancourt [place] 2022-10-21 00:00:00 2022-10-21 00:00:00 Orders Only Doctor Unassigned, [place] [address]114 350.1.13.10 4.2.7.2.686 [id number] [facility] 2022-10-15 00:00:00 2022-10-15 00:00:00 Telephone HeadMaegan segura [facility] 1.840.114 350.1.13.10 4.2.7.2.686 [id number] [facility] 2022-10-11 00:00:00 2022-10-11 00:00:00 Orders Only Doctor Unassigned, [place] [address] 350.1.13.10 4.2.7.2.686 [id number] [facility] 2022-10-11 00:00:00 2022-10-11 00:00:00 Telephone Maegan Head [facility] [facility] [id number] 350.1.13.10 4.2.7.2.686 [id number] [facility] 2022-10-09 00:00:00 2022-10-09 00:00:00 Orders Only Doctor Unassigned, [place] [facility] 1..114 350.1.13.10 4.2.7.2.686 [id number] [facility] 2022-10-09 00:00:00 2022-10-09 00:00:00 Telephone Maegan Head [facility] 1.84114 350.1.13.10 4.2.7.2.686 [id number] [facility] 2022-10-07 14:30:00 2022-10-07 16:47:40 Outpatient R HEAD [facility] [id number] [facility] 2022-10-07 14:30:00 2022-10-07 16:47:40 Office Visit Maegan Head [facility] [facility] 1.840.114 350.1.13.10 4.2.7.2.686 [id number] [facility] 2022-10-07 00:00:00 2022-10-07 00:00:00 Telephone Maegan Head [facility] [facility] 1.840.114 350.1.13.10 4.2.7.2.686 [id number] [facility] 2022-10-02 00:00:00 2022-10-02 00:00:00 Telephone Maegan Head [facility] [facility] [id number] [facility] 2022-08-20 13:43:24 2022-08-20 13:43:24 Outpatient SFA SFA 0404 Jaden Ponce 2022-05-29 14:07:16 2022-05-29 14:07:16 Outpatient SFA SFA 0111 Jaden Ponce 2022-04-30 15:19:29 2022-04-30 15:19:29 Outpatient SFA SFA 1213 Jaden Ponce 2022-04-30 00:00:00 2022-04-30 00:00:00 Outpatient Visit [id number] -[id number] 2022-03-27 00:00:00 2022-03-27 00:00:00 Outpatient DMG DMG [id number] [facility] 2022-03-26 09:54:48 2022-03-26 09:54:48 Outpatient SFA SFA 1108 Jaden Ponce 2022-03-26 00:00:00 2022-03-26 00:00:00 Outpatient Visit [id number] 2022-02-25 11:04:30 2022-02-25 11:04:30 Outpatient SFA SFA [id number] 1010 Jaden Ponce 2022-02-25 00:00:00 2022-02-25 00:00:00 Outpatient Visit [id number] [id number] 2021-11-30 00:00:00 2021-11-30 00:00:00 Outpatient Visit [id number] [id number] -[id number]-[id number] [id number]-a [id number] e05aeb 2021-11-27 04:42:00 2021-11-27 04:42:00 Outpatient [facility] [id number] 0712 Qian arrington [facility] h Program Results Test Description Test Time Test Comments Results Result Co mments Source TSH, THIRD [id number] 07:15:39* Test Item Value Reference Range Interpretation Comme nts TSH, THIRD GENERATION (test code = 2821) 0.265 UIU/ML 0.400-4.100 L C-REACTIVE [id number] 05:45:48* Test Item Value Reference Range Interpretation Comme nts C-REACTIVE PROTEIN (test cod e = 3513) <0.3 MG/DL <0.5 COMPREHENSIVE METABOLIC [id number] 05:45:07* Test Item Value Reference Range Interpretation Comme nts GLUCOSE (test code = 2217) 178 MG/DL 70-99 H BUN (test code = 2208) 15 MG/DL 8-23 CREATININE (test code = 2214) 0.47 MG/DL 0.60-1.30 L eGFR (2020 CKD-EPI) (test code = 80710) 104 ML/MIN/1.73 >60 CALC BUN/CREAT (test code [...] 1.0-2.6 BILIRUBIN, TOTAL (test code = 7) 0.3 MG/DL <=1.2 ALKALINE PHOSPHATASE (test code = 2203) 118 U/L 40-142 AST (test code = 2218) 10 U/L 9-40 ALT (test code = 2219) 17 U/L 5-40 HEMOGLOBIN [id number] 04:57:52* Test Item Value Reference Range Interpretation Comme nts HEMOGLOBIN A1c (test code = 30182) 5.8 % 4.2-5.6 H ANDORRAN DIABETE S [...] CONSIDER ALTERNATE TESTING OR LABORATORY CONSULTATION. SEDIMENTATION [id number] 04:22:25* Test Item Value Reference Range Interpretation Comme nts SEDIMENTATION RATE (test cod e = 1017) 2 MM/HOUR 0-20 CBC W/AUTO DIFF WITH [id number] 02:36:55* Test Item Value Reference Range Interpretation [...] = 1065) 0.0 /100 WBC'S See_Comment [Automated [employer]] The system which generated this result [...] H ABS NUCLEATED RBCS (test code = 62336) 0.00 K/UL 0.00-0.11 HEMOGLOBIN [id number] 00:00:00* Test Item Value Reference Range Interpretation Comme [facility] HEMOGLOBIN A1c (test code = 14209) 5.8 % Jaden PonceCOMPREHENSIVE METABOLIC [id number] 00:00:00* Test Item Value Reference Range Interpretation Comme nts GLUCOSE (test code = 2217) 178 MG/DL BUN (test code = 2208) 15 MG/DL CREATININE (test code = 2214) 0.47 MG/DL eGFR (2020 CKD-EPI) (test code = 98002) 104 ML/MIN/1.73 CALC BUN/CREAT (test code = [...] = 2219) 17 U/L Jaden PonceTSH, THIRD [id number] 00:00:00* Test Item Value Reference Range Interpretation Comme adrián TSH, THIRD GENERATION (test code = 2821) 0.265 UIU/ML Jaden PonceSEDIMENTATION [id number] 00:00:00* Test Item Value Reference Range Interpretation Comme nts SEDIMENTATION RATE (test cod e = 1017) 2 MM/HOUR Jaden PonceC-REACTIVE [id number] 00:00:00* Test Item Value Reference Range Interpretation Comme nts C-REACTIVE PROTEIN (test cod e = 3513) <0.3 MG/DL Jaden PonceVITAMIN D, 25 [id number] 00:00:00* Test Item Value Reference Range Interpretation Comme adrián VITAMIN D, 25 OH (test code = 4958) 34 NG/ML Jaden PonceCBC W/AUTO [id number] 00:00:00* Test Item Value Reference Range Interpretation [...] ABS NUCLEATED RBCS (test cod e = 86469) 0.00 K/UL Jaden PonceHEMOGLOBIN [id number] 00:00:00* Test Item Value Reference Range Interpretation Comme nts HEMOGLOBIN A1c (test code = 10649) 5.8 % Jaden PonceCOMPREHENSIVE METABOLIC [id number] 00:00:00* Test Item Value Reference Range Interpretation Comme nts GLUCOSE (test code = 2217) 178 MG/DL BUN (test code = 2208) 15 MG/DL CREATININE (test code = 2214) 0.47 MG/DL eGFR (2020 CKD-EPI) (test code = 44095) 104 ML/MIN/1.73 CALC BUN/CREAT (test code = [...] 2219) 17 U/L Jaden F AustinTSH, THIRD [id number] 00:00:00* Test Item Value Reference Range Interpretation Comme nts TSH, THIRD GENERATION (test code = 2821) 0.265 UIU/ML Jaden PonceSEDIMENTATION [id number] 00:00:00* Test Item Value Reference Range Interpretation Comme nts SEDIMENTATION RATE (test cod e = 1017) 2 MM/HOUR Jaden PonceC-REACTIVE [id number] 00:00:00* Test Item Value Reference Range Interpretation Comme nts C-REACTIVE PROTEIN (test cod e = 3513) <0.3 MG/DL Jaden PonceVITAMIN D, 25 [id number] 00:00:00* Test Item Value Reference Range Interpretation Comme nts VITAMIN D, 25 OH (test code = 4958) 34 NG/ML Jaden PonceCBC W/AUTO [id number] 00:00:00* Test Item Value Reference Range Interpretation [...] ABS NUCLEATED RBCS (test cod e = 87843) 0.00 K/UL Jaden PonceHEMOGLOBIN [id number] 00:00:00* Test Item Value Reference Range Interpretation Comme adrián HEMOGLOBIN A1c (test code = 61993) 5.8 % Jaden PonceCOMPREHENSIVE METABOLIC [id number] 00:00:00* Test Item Value Reference Range Interpretation Comme nts GLUCOSE (test code = 2217) 178 MG/DL BUN (test code = 2208) 15 MG/DL CREATININE (test code = 2214) 0.47 MG/DL eGFR (2020 CKD-EPI) (test code = 23121) 104 ML/MIN/1.73 CALC BUN/CREAT (test code = [...] = 2219) 17 U/L Jaden PonceTSH, THIRD [id number] 00:00:00* Test Item Value Reference Range Interpretation Comme adrián TSH, THIRD GENERATION (test code = 2821) 0.265 UIU/ML Jaden PonceSEDIMENTATION [id number] 00:00:00* Test Item Value Reference Range Interpretation Comme nts SEDIMENTATION RATE (test cod e = 1017) 2 MM/HOUR Jaden PonceC-REACTIVE [id number] 00:00:00* Test Item Value Reference Range Interpretation Comme nts C-REACTIVE PROTEIN (test cod e = 3513) <0.3 MG/DL Jaden PonceVITAMIN D, 25 [id number] 00:00:00* Test Item Value Reference Range Interpretation Comme nts VITAMIN D, 25 OH (test code = 4958) 34 NG/ML Jaden PonceCBC W/AUTO [id number] 00:00:00* Test Item Value Reference Range Interpretation [...] ABS NUCLEATED RBCS (test cod e = 74758) 0.00 K/UL Jaden PonceLIPID [id number] 06:45:40* Test Item Value Reference Range Interpretation [...] SPECIMENS. FOR MOREINFORMATION, SEE CLIENT ANNOUNCEMENT AT [email or web address] RISK RATIO LDL/HDL (test code = 223) 1.58 RATIO <3.22 COMPREHENSIVE METABOLIC [id number] 06:45:40* Test Item Value Reference Range Interpretation Comme nts GLUCOSE (test code = 2216) 185 MG/DL 70-99 H BUN (test code = 2207) 10 MG/DL 8-23 CREATININE (test code = 2213) 0.55 MG/DL 0.60-1.30 L eGFR (2020 CKD-EPI) (test code = 46349) 101 ML/MIN/1.73 >60 CALC BUN/CREAT (test code [...] (test code = 2219) 17 U/L 5-40 [facility] has impo rtant pathology staff changes effective 07/17/2022. New pathology staff will provide uninterrupted, excellent patient care and clinical consultation. See URL: [email or web address]/patho [email or web address]-team. UNLESS OTHERWISE INDICATED, ALL TESTING PERFORMED AT [facility] [address] [address] [employer]: JOEY SILVA M.D. [place] NUMBER [id number] [facility] [place]. [id number] HEMOGLOBIN [id number] 03:45:25* Test Item Value Reference Range Interpretation Comme nts HEMOGLOBIN A1c (test code = 40469) 6.1 % 4.2-5.6 H ANDORRAN DIABETE S [...] OR LABORATORY CONSULTATION. CBC W/AUTO DIFF WITH [id number] 02:39:50* Test Item Value Reference Range Interpretation [...] = 1065) 0.0 /100 WBC'S See_Comment [Automated [employer]] The system which generated this result [...] H ABS NUCLEATED RBCS (test code = 16809) 0.00 K/UL 0.00-0.11 HEMOGLOBIN [id number] 00:00:00* Test Item Value Reference Range Interpretation Comme nts HEMOGLOBIN A1c (test code = 83093) 6.1 % Jaden Betancourt [place] [id number] 00:00:00* Test Item Value Reference Range Interpretation Comme nts CHOLESTEROL (test code = 2210) 219 MG/DL TRIGLYCERIDES (test code = 2232) 85 MG/DL HDL CHOLESTEROL (test code = 2220) 78 MG/DL CALC LDL CHOL (test code = 2237) 123 MG/DL RISK RATIO LDL/HDL (test cod e = 2238) 1.58 RATIO Jaden Betancourt KrisCOMPREHENSIVE METABOLIC [id number] 00:00:00* Test Item Value Reference Range Interpretation Comme nts GLUCOSE (test code = 2217) 185 MG/DL BUN (test code = 2208) 10 MG/DL CREATININE (test code = 2214) 0.55 MG/DL eGFR (2020 CKD-EPI) (test code = 10308) 101 ML/MIN/1.73 CALC BUN/CREAT (test code = [...] (test code = 2219) 17 U/L [facility]adne F [facility] W/AUTO [id number] 00:00:00* Test Item Value Reference Range Interpretation [...] ABS NUCLEATED RBCS (test cod e = 66562) 0.00 K/UL Jaden PonceHEMOGLOBIN [id number] 00:00:00* Test Item Value Reference Range Interpretation Comme nts HEMOGLOBIN A1c (test code = 13788) 6.1 % Jaden PonceLIPID [id number] 00:00:00* Test Item Value Reference Range Interpretation Comme nts CHOLESTEROL (test code = 2210) 219 MG/DL TRIGLYCERIDES (test code = 2232) 85 MG/DL HDL CHOLESTEROL (test code = 2220) 78 MG/DL CALC LDL CHOL (test code = 2237) 123 MG/DL RISK RATIO LDL/HDL (test cod e = 2238) 1.58 RATIO Jaden PonceCOMPREHENSIVE METABOLIC [id number] 00:00:00* Test Item Value Reference Range Interpretation Comme nts GLUCOSE (test code = 2217) 185 MG/DL BUN (test code = 2208) 10 MG/DL CREATININE (test code = 2214) 0.55 MG/DL eGFR (2020 CKD-EPI) (test code = 73182) 101 ML/MIN/1.73 CALC BUN/CREAT (test code = [...] = 2219) 17 U/L Jaden PonceCBC W/AUTO [id number] 00:00:00* Test Item Value Reference Range Interpretation [...] ABS NUCLEATED RBCS (test cod e = 07630) 0.00 K/UL Jaden PonceHEMOGLOBIN [id number] 00:00:00* Test Item Value Reference Range Interpretation Comme nts HEMOGLOBIN A1c (test code = 91400) 6.1 % Jaden PonceLIPID [id number] 00:00:00* Test Item Value Reference Range Interpretation Comme nts CHOLESTEROL (test code = 2210) 219 MG/DL TRIGLYCERIDES (test code = 2232) 85 MG/DL HDL CHOLESTEROL (test code = 2220) 78 MG/DL CALC LDL CHOL (test code = 2237) 123 MG/DL RISK RATIO LDL/HDL (test cod e = 2238) 1.58 RATIO Jaden PonceCOMPREHENSIVE METABOLIC [id number] 00:00:00* Test Item Value Reference Range Interpretation Comme nts GLUCOSE (test code = 2217) 185 MG/DL BUN (test code = 2208) 10 MG/DL CREATININE (test code = 2214) 0.55 MG/DL eGFR (2020 CKD-EPI) (test code = 08992) 101 ML/MIN/1.73 CALC BUN/CREAT (test code = [...] code = 2219) 17 U/L Jaden Betancourt [facility] W/AUTO [id number] 00:00:00* Test Item Value Reference Range Interpretation [...] ABS NUCLEATED RBCS (test cod e = 82592) 0.00 K/UL Jaden PonceOCCULT BLD,FECAL,IMMUNOASSAY [id number] 15:52:05* Test Item Value Reference Range Interpretation Comme nts OCCULT BLD, FECAL (test code = 81671) NEGATIVE NEGATIVE [facility] has important pathology staff changes effective 07/17/2022. New pathology staff will provide uninterrupted, excellent patient care and clinical consultation. See URL: [email or web address]/patholog y-team. UNLESS OTHERWISE INDICATED, ALL TESTING PERFORMED AT [facility] [address] [address] CLIA: [id number], CAP: [id number] OCCULT BLD,FECAL,IMMUNOASSAY [id number] 00:00:00* Test Item Value Reference Range Interpretation Comme nts OCCULT BLD, FECAL (test code = 57538) NEGATIVE Jaden Betancourt AustinOCCULT BLD,FECAL,IMMUNOASSAY [facility] [id number] 00:00:00* Test Item Value Reference Range Interpretation Comme nts OCCULT BLD, FECAL (test code = 14205) NEGATIVE Jaden Betancourt AustinOCCULT BLD,FECAL,IMMUNOASSAY [facility] [id number] 00:00:00* Test Item Value Reference Range Interpretation Comme nts OCCULT BLD, FECAL (test code = 34563) NEGATIVE Jaden ConleyH, THIRD [id number] 06:49:25* Test Item Value Reference Range Interpretation Comme nts TSH, THIRD GENERATION (test code = 2821) 1.600 UIU/ML 0.400-4.100 [id number] 06:45:12* Test Item Value Reference Range Interpretation Comme nts NT-proBNP (test code = 69303) <50 PG/ML SEE BELOW If NT-ProBNP is less than 300 PG/ML, heart failure is unlikely for allages. Age.................Heart Failure Likely <50 Years...........>=450 PG/ML 50-75 Years.........>=900 PG/ML > 75 Years..........>=1800 PG/ML Methodology: [employer] Electrochemilumines[employer] Immunoassay UNLESS OTHERWISE INDICATED, ALL TEST[facility]FORMED [facility] [address] [address] [employer] MAK[employer]: ELIAS ESPANA M.D. IA NUMBER [id number] [facility]. [id number] COMPREHENSIVE METABOLIC [id number] 04:56:47* Test Item Value Reference Range Interpretation Comme nts GLUCOSE (test code = 2217) 137 MG/DL 70-99 H BUN (test code = 2207) 12 MG/DL 8-23 CREATININE (test code = 221) 0.60 MG/DL 0.60-1.30 eGFR (2020 CKD-EPI) (test code = 25667) 99 ML/MIN/1.73 >60 CALC BUN/CREAT (test code [...] code = 2219) 11 U/L 5-40 LIPID [id number] 04:56:47* Test Item Value Reference Range Interpretation [...] SPECIMENS. FOR MOREINFORMATION, SEE CLIENT ANNOUNCEMENT AT [email or web address] RISK RATIO LDL/HDL (test code = 2238) 2.59 RATIO <3.22 HEMOGLOBIN [id number] 04:00:46* Test Item Value Reference Range Interpretation Comme nts HEMOGLOBIN A1c (test code = 53720) 5.9 % 4.2-5.6 H CBC W/AUTO DIFF WITH [id number] 02:37:32* Test Item Value Reference Range Interpretation [...] 0.00-0.10 ABS NUCLEATED RBCS (test code = 39809) 0.00 K/UL 0.00-0.11 CBC W/AUTO [id number] 00:00:00* Test Item Value Reference Range Interpretation [...] ABS NUCLEATED RBCS (test cod e = 48478) 0.00 K/UL Jaden PonceCOMPREHENSIVE METABOLIC [id number] 00:00:00* Test Item Value Reference Range Interpretation Comme nts GLUCOSE (test code = 2217) 137 MG/DL BUN (test code = 2208) 12 MG/DL CREATININE (test code = 2214) 0.60 MG/DL eGFR (2020 CKD-EPI) (test co de = 85940) 99 ML/MIN/1.73 CALC BUN/CREAT (test code = [...] code = 2219) 11 U/L Jaden PonceLIPID [id number] 00:00:00* Test Item Value Reference Range Interpretation Comme nts CHOLESTEROL (test code = 2210) 236 MG/DL TRIGLYCERIDES (test code = 2232) 274 MG/DL HDL CHOLESTEROL (test code = 2220) 54 MG/DL CALC LDL CHOL (test code = 2237) 140 MG/DL RISK RATIO LDL/HDL (test cod e = 2238) 2.59 RATIO Jaden Betancourt KrisTSH, THIRD [id number] 00:00:00* Test Item Value Reference Range Interpretation Comme nts TSH, THIRD GENERATION (test code = 2821) 1.600 UIU/ML Jaden PonceQqqxvuQW-[id number] 00:00:00* Test Item Value Reference Range Interpretation Comme adrián NT-proBNP (test code = 71668) <50 PG/ML Jaden PonceHEMOGLOBIN [id number] 00:00:00* Test Item Value Reference Range Interpretation Comme nts HEMOGLOBIN A1c (test code = 72678) 5.9 % Jaden PonceCBC W/AUTO [id number] 00:00:00* Test Item Value Reference Range Interpretation [...] ABS NUCLEATED RBCS (test cod e = 10865) 0.00 K/UL Jaden PonceCOMPREHENSIVE METABOLIC [id number] 00:00:00* Test Item Value Reference Range Interpretation Comme nts GLUCOSE (test code = 2217) 137 MG/DL BUN (test code = 2208) 12 MG/DL CREATININE (test code = 2214) 0.60 MG/DL eGFR (2020 CKD-EPI) (test co de = 72661) 99 ML/MIN/1.73 CALC BUN/CREAT (test code = [...] code = 2219) 11 U/L Jaden PonceLIPID [id number] 00:00:00* Test Item Value Reference Range Interpretation Comme nts CHOLESTEROL (test code = 2210) 236 MG/DL TRIGLYCERIDES (test code = 2232) 274 MG/DL HDL CHOLESTEROL (test code = 2220) 54 MG/DL CALC LDL CHOL (test code = 2237) 140 MG/DL RISK RATIO LDL/HDL (test cod e = 2238) 2.59 RATIO Jaden PonceTSH, THIRD [id number] 00:00:00* Test Item Value Reference Range Interpretation Comme nts TSH, THIRD GENERATION (test code = 2821) 1.600 UIU/ML Jaden PonceBagqriOL-[id number] 00:00:00* Test Item Value Reference Range Interpretation Comme nts NT-proBNP (test code = 01444) <50 PG/ML Jaden PonceHEMOGLOBIN [id number] 00:00:00* Test Item Value Reference Range Interpretation Comme nts HEMOGLOBIN A1c (test code = 42560) 5.9 % Jaden PonceCBC W/AUTO [id number] 00:00:00* Test Item Value Reference Range Interpretation [...] ABS NUCLEATED RBCS (test cod e = 86128) 0.00 K/UL Jaden Serafin KrisCOMPREHENSIVE METABOLIC [id number] 00:00:00* Test Item Value Reference Range Interpretation Comme nts GLUCOSE (test code = 2217) 137 MG/DL BUN (test code = 2208) 12 MG/DL CREATININE (test code = 2214) 0.60 MG/DL eGFR (2020 CKD-EPI) (test co de = 50771) 99 ML/MIN/1.73 CALC BUN/CREAT (test code = [...] code = 2219) 11 U/L Jaden PonceLIPID [id number] 00:00:00* Test Item Value Reference Range Interpretation Comme nts CHOLESTEROL (test code = 2210) 236 MG/DL TRIGLYCERIDES (test code = 2232) 274 MG/DL HDL CHOLESTEROL (test code = 2220) 54 MG/DL CALC LDL CHOL (test code = 2237) 140 MG/DL RISK RATIO LDL/HDL (test cod e = 2238) 2.59 RATIO Jaden PonceTSH, THIRD [id number] 00:00:00* Test Item Value Reference Range Interpretation Comme adrián TSH, THIRD GENERATION (test code = 2821) 1.600 UIU/ML Jaden PonceRmadxrQI-[id number] 00:00:00* Test Item Value Reference Range Interpretation Comme adrián NT-proBNP (test code = 37466) <50 PG/ML Jaden PonceHEMOGLOBIN [id number] 00:00:00* Test Item Value Reference Range Interpretation Comme adrián HEMOGLOBIN A1c (test code = 80302) 5.9 % Jaden PonceHEMOGLOBIN [id number] 00:00:00* Test Item Value Reference Range Interpretation Comme adrián HEMOGLOBIN A1c (test code = 65454) 5.9 % CBC W/AUTO [id number] 00:00:00* Test Item Value Reference Range Interpretation [...] ABS NUCLEATED RBCS (test cod e = 93701) 0.00 K/UL COMPREHENSIVE METABOLIC [id number] 00:00:00* Test Item Value Reference Range Interpretation Comme nts GLUCOSE (test code = 2217) 137 MG/DL BUN (test code = 2208) 12 MG/DL CREATININE (test code = 2214) 0.60 MG/DL eGFR (2020 CKD-EPI) (test co de = 84948) 99 ML/MIN/1.73 CALC BUN/CREAT (test code = [...] (test code = 2219) 11 U/L LIPID [id number] 00:00:00* Test Item Value Reference Range Interpretation Comme nts CHOLESTEROL (test code = 2210) 236 MG/DL TRIGLYCERIDES (test code = 2232) 274 MG/DL HDL CHOLESTEROL (test code = 2220) 54 MG/DL CALC LDL CHOL (test code = 2237) 140 MG/DL RISK RATIO LDL/HDL (test cod e = 2238) 2.59 RATIO TSH, THIRD [id number] 00:00:00* Test Item Value Reference Range Interpretation Comme nts TSH, THIRD GENERATION (test code = 2821) 1.600 UIU/ML [id number] 00:00:00* Test Item Value Reference Range Interpretation Comme nts NT-proBNP (test code = 76058) <50 PG/ML HEMOGLOBIN [id number] 00:00:00* Test Item Value Reference Range Interpretation Comme nts HEMOGLOBIN A1c (test code = 17093) 5.9 % CBC W/AUTO [id number] 00:00:00* Test Item Value Reference Range Interpretation [...] ABS NUCLEATED RBCS (test cod e = 75458) 0.00 K/UL COMPREHENSIVE METABOLIC [id number] 00:00:00* Test Item Value Reference Range Interpretation Comme nts GLUCOSE (test code = 2217) 137 MG/DL BUN (test code = 2208) 12 MG/DL CREATININE (test code = 2214) 0.60 MG/DL eGFR (2020 CKD-EPI) (test co de = 04562) 99 ML/MIN/1.73 CALC BUN/CREAT (test code = [...] (test code = 2219) 11 U/L LIPID [id number] 00:00:00* Test Item Value Reference Range Interpretation Comme nts CHOLESTEROL (test code = 2210) 236 MG/DL TRIGLYCERIDES (test code = 2232) 274 MG/DL HDL CHOLESTEROL (test code = 2220) 54 MG/DL CALC LDL CHOL (test code = 2237) 140 MG/DL RISK RATIO LDL/HDL (test cod e = 2238) 2.59 RATIO TSH, THIRD [id number] 00:00:00* Test Item Value Reference Range Interpretation Comme nts TSH, THIRD GENERATION (test code = 2821) 1.600 UIU/ML [id number] 00:00:00* Test Item Value Reference Range Interpretation Comme nts NT-proBNP (test code = 37027) <50 PG/ML HEMOGLOBIN [id number] 00:00:00* Test Item Value Reference Range Interpretation Comme nts HEMOGLOBIN A1c (test code = 86809) 5.9 % CBC W/AUTO [id number] 00:00:00* Test Item Value Reference Range Interpretation [...] ABS NUCLEATED RBCS (test cod e = 50264) 0.00 K/UL COMPREHENSIVE METABOLIC [id number] 00:00:00* Test Item Value Reference Range Interpretation Comme nts GLUCOSE (test code = 2217) 137 MG/DL BUN (test code = 2208) 12 MG/DL CREATININE (test code = 2214) 0.60 MG/DL eGFR (2020 CKD-EPI) (test co de = 89038) 99 ML/MIN/1.73 CALC BUN/CREAT (test code = [...] (test code = 2219) 11 U/L LIPID [id number] 00:00:00* Test Item Value Reference Range Interpretation Comme nts CHOLESTEROL (test code = 2210) 236 MG/DL TRIGLYCERIDES (test code = 2232) 274 MG/DL HDL CHOLESTEROL (test code = 2220) 54 MG/DL CALC LDL CHOL (test code = 2237) 140 MG/DL RISK RATIO LDL/HDL (test cod e = 2238) 2.59 RATIO TSH, THIRD [id number] 00:00:00* Test Item Value Reference Range Interpretation Comme nts TSH, THIRD GENERATION (test code = 2821) 1.600 UIU/ML [id number] 00:00:00* Test Item Value Reference Range Interpretation Comme nts NT-proBNP (test code = 69333) <50 PG/ML HEMOGLOBIN [id number] 00:00:00* Test Item Value Reference Range Interpretation Comme nts HEMOGLOBIN A1c (test code = 19531) 5.9 % CBC W/AUTO [id number] 00:00:00* Test Item Value Reference Range Interpretation [...] ABS NUCLEATED RBCS (test cod e = 28321) 0.00 K/UL COMPREHENSIVE METABOLIC [id number] 00:00:00* Test Item Value Reference Range Interpretation Comme nts GLUCOSE (test code = 2217) 137 MG/DL BUN (test code = 2208) 12 MG/DL CREATININE (test code = 2214) 0.60 MG/DL eGFR (2020 CKD-EPI) (test co de = 57350) 99 ML/MIN/1.73 CALC BUN/CREAT (test code = [...] (test code = 2219) 11 U/L LIPID [id number] 00:00:00* Test Item Value Reference Range Interpretation Comme nts CHOLESTEROL (test code = 2210) 236 MG/DL TRIGLYCERIDES (test code = 2232) 274 MG/DL HDL CHOLESTEROL (test code = 2220) 54 MG/DL CALC LDL CHOL (test code = 2237) 140 MG/DL RISK RATIO LDL/HDL (test cod e = 2238) 2.59 RATIO TSH, THIRD [id number] 00:00:00* Test Item Value Reference Range Interpretation Comme nts TSH, THIRD GENERATION (test code = 2821) 1.600 UIU/ML [id number] 00:00:00* Test Item Value Reference Range Interpretation Comme nts NT-proBNP (test code = 00022) <50 PG/ML CBC W/AUTO [id number] 00:00:00* Test Item Value Reference Range Interpretation [...] ABS NUCLEATED RBCS (test cod e = 57677) 0.00 K/UL Jaden PonceCOMPREHENSIVE METABOLIC [id number] 00:00:00* Test Item Value Reference Range Interpretation Comme nts GLUCOSE (test code = 2217) 106 MG/DL BUN (test code = 2208) 7 MG/DL CREATININE (test code = 2214) 0.57 MG/DL eGFR AMER. (test cod e = 97304) 113 ML/MIN/1.73 eGFR NON- AMER. (test code = 85681) 97 ML/MIN/1.73 CALC BUN/CREAT (test code = [...] (test code = 2219) 12 U/L Jaden [id number] 00:00:00* Test Item Value Reference Range Interpretation Comme nts TSH, THIRD GENERATION (test code = 2821) 1.390 UIU/ML Jaden PonceHEMOGLOBIN A1c [ADDED]2021-04-05 00:00:00* Test Item Value Reference Range Interpretation Comme adrián HEMOGLOBIN A1c (test code = 88558) 5.7 % Jaden PonceLIPID [id number] 00:00:00* Test Item Value Reference Range Interpretation Comme nts CHOLESTEROL (test code = 2210) 252 MG/DL TRIGLYCERIDES (test code = 2232) 171 MG/DL HDL CHOLESTEROL (test code = 2220) 61 MG/DL CALC LDL CHOL (test code = 2237) 159 MG/DL RISK RATIO LDL/HDL (test cod e = 2238) 2.61 RATIO Jaden PonceCBC W/AUTO [id number] 00:00:00* Test Item Value Reference Range Interpretation [...] ABS NUCLEATED RBCS (test cod e = 52798) 0.00 K/UL Jaden PonceCOMPREHENSIVE METABOLIC [id number] 00:00:00* Test Item Value Reference Range Interpretation Comme nts GLUCOSE (test code = 2217) 106 MG/DL BUN (test code = 2208) 7 MG/DL CREATININE (test code = 2214) 0.57 MG/DL eGFR AMER. (test cod e = 40267) 113 ML/MIN/1.73 eGFR NON- AMER. (test code = 11706) 97 ML/MIN/1.73 CALC BUN/CREAT (test code = [...] (test code = 2219) 12 U/L Jaden [id number] 00:00:00* Test Item Value Reference Range Interpretation Comme [facility] TSH, THIRD GENERATION (test code = 2821) 1.390 UIU/ML Jaden PonceHEMOGLOBIN A1c [ADDED]2021-04-05 00:00:00* Test Item Value Reference Range Interpretation Comme adrián HEMOGLOBIN A1c (test code = 83646) 5.7 % Jaden PonceLIPID [id number] 00:00:00* Test Item Value Reference Range Interpretation Comme nts CHOLESTEROL (test code = 2210) 252 MG/DL TRIGLYCERIDES (test code = 2232) 171 MG/DL HDL CHOLESTEROL (test code = 2220) 61 MG/DL CALC LDL CHOL (test code = 2237) 159 MG/DL RISK RATIO LDL/HDL (test cod e = 2238) 2.61 RATIO Jaden PonceCBC W/AUTO [id number] 00:00:00* Test Item Value Reference Range Interpretation [...] ABS NUCLEATED RBCS (test cod e = 24340) 0.00 K/UL Jaden PonceCOMPREHENSIVE METABOLIC [id number] 00:00:00* Test Item Value Reference Range Interpretation Comme nts GLUCOSE (test code = 2217) 106 MG/DL BUN (test code = 2208) 7 MG/DL CREATININE (test code = 2214) 0.57 MG/DL eGFR AMER. (test cod e = 60732) 113 ML/MIN/1.73 eGFR NON- AMER. (test code = 01276) 97 ML/MIN/1.73 CALC BUN/CREAT (test code = [...] (test code = 2219) 12 U/L Jaden [id number] 00:00:00* Test Item Value Reference Range Interpretation Comme adrián TSH, THIRD GENERATION (test code = 2821) 1.390 UIU/ML Jaden PonceHEMOGLOBIN A1c [ADDED]2021-04-05 00:00:00* Test Item Value Reference Range Interpretation Comme adrián HEMOGLOBIN A1c (test code = 22485) 5.7 % Jaden PonceLIPID [id number] 00:00:00* Test Item Value Reference Range Interpretation Comme nts CHOLESTEROL (test code = 2210) 252 MG/DL TRIGLYCERIDES (test code = 2232) 171 MG/DL HDL CHOLESTEROL (test code = 2220) 61 MG/DL CALC LDL CHOL (test code = 2237) 159 MG/DL RISK RATIO LDL/HDL (test cod e = 2238) 2.61 RATIO Jaden PonceLIPID [id number] 00:00:00* Test Item Value Reference Range Interpretation Comme nts CHOLESTEROL (test code = 2210) 252 MG/DL TRIGLYCERIDES (test code = 2232) 171 MG/DL HDL CHOLESTEROL (test code = 2220) 61 MG/DL CALC LDL CHOL (test code = 2237) 159 MG/DL RISK RATIO LDL/HDL (test cod e = 2238) 2.61 RATIO CBC W/AUTO [id number] 00:00:00* Test Item Value Reference Range Interpretation [...] ABS NUCLEATED RBCS (test cod e = 74485) 0.00 K/UL COMPREHENSIVE METABOLIC [id number] 00:00:00* Test Item Value Reference Range Interpretation Comme nts GLUCOSE (test code = 2217) 106 MG/DL BUN (test code = 2208) 7 MG/DL CREATININE (test code = 2214) 0.57 MG/DL eGFR AMER. (test cod e = 80500) 113 ML/MIN/1.73 eGFR NON- AMER. (test code = 23686) 97 ML/MIN/1.73 CALC BUN/CREAT (test code = [...] ALT (test code = 2219) 12 U/L [id number] 00:00:00* Test Item Value Reference Range Interpretation Comme nts TSH, THIRD GENERATION (test code = 2821) 1.390 UIU/ML HEMOGLOBIN A1c [ADDED]2021-04-05 00:00:00* Test Item Value Reference Range Interpretation Comme nts HEMOGLOBIN A1c (test code = 37019) 5.7 % LIPID [id number] 00:00:00* Test Item Value Reference Range Interpretation Comme nts CHOLESTEROL (test code = 2210) 252 MG/DL TRIGLYCERIDES (test code = 2232) 171 MG/DL HDL CHOLESTEROL (test code = 2220) 61 MG/DL CALC LDL CHOL (test code = 2237) 159 MG/DL RISK RATIO LDL/HDL (test cod e = 2238) 2.61 RATIO CBC W/AUTO [id number] 00:00:00* Test Item Value Reference Range Interpretation [...] ABS NUCLEATED RBCS (test cod e = 27249) 0.00 K/UL COMPREHENSIVE METABOLIC [id number] 00:00:00* Test Item Value Reference Range Interpretation Comme nts GLUCOSE (test code = 2217) 106 MG/DL BUN (test code = 2208) 7 MG/DL CREATININE (test code = 2214) 0.57 MG/DL eGFR AMER. (test cod e = 10563) 113 ML/MIN/1.73 eGFR NON- AMER. (test code = 92964) 97 ML/MIN/1.73 CALC BUN/CREAT (test code = [...] ALT (test code = 2219) 12 U/L [id number] 00:00:00* Test Item Value Reference Range Interpretation Comme [facility] TSH, THIRD GENERATION (test code = 2821) 1.390 UIU/ML HEMOGLOBIN A1c [ADDED]2021-04-05 00:00:00* Test Item Value Reference Range Interpretation Comme [facility] HEMOGLOBIN A1c (test code = 37102) 5.7 % LIPID [id number] 00:00:00* Test Item Value Reference Range Interpretation Comme nts CHOLESTEROL (test code = 2210) 252 MG/DL TRIGLYCERIDES (test code = 2232) 171 MG/DL HDL CHOLESTEROL (test code = 2220) 61 MG/DL CALC LDL CHOL (test code = 2237) 159 MG/DL RISK RATIO LDL/HDL (test cod e = 2238) 2.61 RATIO CBC W/AUTO [id number] 00:00:00* Test Item Value Reference Range Interpretation [...] ABS NUCLEATED RBCS (test cod e = 23686) 0.00 K/UL COMPREHENSIVE METABOLIC [id number] 00:00:00* Test Item Value Reference Range Interpretation Comme nts GLUCOSE (test code = 2217) 106 MG/DL BUN (test code = 2208) 7 MG/DL CREATININE (test code = 2214) 0.57 MG/DL eGFR AMER. (test cod e = 66436) 113 ML/MIN/1.73 eGFR NON- AMER. (test code = 16781) 97 ML/MIN/1.73 CALC BUN/CREAT (test code = [...] ALT (test code = 2219) 12 U/L [id number] 00:00:00* Test Item Value Reference Range Interpretation Comme nts TSH, THIRD GENERATION (test code = 2821) 1.390 UIU/ML HEMOGLOBIN A1c [ADDED]2021-04-05 00:00:00* Test Item Value Reference Range Interpretation Comme nts HEMOGLOBIN A1c (test code = 10520) 5.7 % LIPID [id number] 00:00:00* Test Item Value Reference Range Interpretation Comme nts CHOLESTEROL (test code = 2210) 252 MG/DL TRIGLYCERIDES (test code = 2232) 171 MG/DL HDL CHOLESTEROL (test code = 2220) 61 MG/DL CALC LDL CHOL (test code = 2237) 159 MG/DL RISK RATIO LDL/HDL (test cod e = 2238) 2.61 RATIO CBC W/AUTO [id number] 00:00:00* Test Item Value Reference Range Interpretation [...] ABS NUCLEATED RBCS (test cod e = 56709) 0.00 K/UL COMPREHENSIVE METABOLIC [id number] 00:00:00* Test Item Value Reference Range Interpretation Comme nts GLUCOSE (test code = 2217) 106 MG/DL BUN (test code = 2208) 7 MG/DL CREATININE (test code = 2214) 0.57 MG/DL eGFR AMER. (test cod e = 70403) 113 ML/MIN/1.73 eGFR NON- AMER. (test code = 76741) 97 ML/MIN/1.73 CALC BUN/CREAT (test code = [...] ALT (test code = 2219) 12 U/L [id number] 00:00:00* Test Item Value Reference Range Interpretation Comme [facility] TSH, THIRD GENERATION (test code = 2821) 1.390 UIU/ML HEMOGLOBIN A1c [ADDED]2021-04-05 00:00:00* Test Item Value Reference Range Interpretation Comme [facility] HEMOGLOBIN A1c (test code = 25438) 5.7 % HEMOGLOBIN [id number] 00:00:00* Test Item Value Reference Range Interpretation Comme nts HEMOGLOBIN A1c (test code = 22980) 5.7 % Jaden PonceLIPID [id number] 00:00:00* Test Item Value Reference Range Interpretation Comme nts CHOLESTEROL (test code = 2210) 166 MG/DL TRIGLYCERIDES (test code = 2232) 209 MG/DL HDL CHOLESTEROL (test code = 2220) 47 MG/DL CALC LDL CHOL (test code = 2237) 89 MG/DL RISK RATIO LDL/HDL (test cod e = 2238) 1.89 RATIO Jaden PonceCOMPREHENSIVE METABOLIC [id number] 00:00:00* Test Item Value Reference Range Interpretation Comme nts GLUCOSE (test code = 2217) 106 MG/DL BUN (test code = 2208) 10 MG/DL CREATININE (test code = 2214) 0.64 MG/DL eGFR AMER. (test cod e = 68993) 110 ML/MIN/1.73 eGFR NON- AMER. (test code = 51282) 95 ML/MIN/1.73 CALC BUN/CREAT (test code = [...] (test code = 2219) 19 U/L Jaden [id number] 00:00:00* Test Item Value Reference Range Interpretation Comme nts TSH, THIRD GENERATION (test code = 2821) 1.690 UIU/ML Jaden PonceCBC W/AUTO [id number] 00:00:00* Test Item Value Reference Range Interpretation [...] code = 1015) 249 K/UL Jaden PonceHEMOGLOBIN [id number] 00:00:00* Test Item Value Reference Range Interpretation Comme [facility] HEMOGLOBIN A1c (test code = 82490) 5.7 % Jaden PonceLIPID [id number] 00:00:00* Test Item Value Reference Range Interpretation Comme nts CHOLESTEROL (test code = 2210) 166 MG/DL TRIGLYCERIDES (test code = 2232) 209 MG/DL HDL CHOLESTEROL (test code = 2220) 47 MG/DL CALC LDL CHOL (test code = 2237) 89 MG/DL RISK RATIO LDL/HDL (test cod e = 2238) 1.89 RATIO Jaden PonceCOMPREHENSIVE METABOLIC [id number] 00:00:00* Test Item Value Reference Range Interpretation Comme nts GLUCOSE (test code = 2217) 106 MG/DL BUN (test code = 2208) 10 MG/DL CREATININE (test code = 2214) 0.64 MG/DL eGFR AMER. (test cod e = 21261) 110 ML/MIN/1.73 eGFR NON- AMER. (test code = 62840) 95 ML/MIN/1.73 CALC BUN/CREAT (test code = [...] (test code = 2219) 19 U/L Jaden [id number] 00:00:00* Test Item Value Reference Range Interpretation Comme nts TSH, THIRD GENERATION (test code = 2821) 1.690 UIU/ML Jaden PonceCBC W/AUTO [id number] 00:00:00* Test Item Value Reference Range Interpretation [...] code = 1015) 249 K/UL Jaden PonceHEMOGLOBIN [id number] 00:00:00* Test Item Value Reference Range Interpretation Comme nts HEMOGLOBIN A1c (test code = 10888) 5.7 % Jaden PonceLIPID [id number] 00:00:00* Test Item Value Reference Range Interpretation Comme nts CHOLESTEROL (test code = 2210) 166 MG/DL TRIGLYCERIDES (test code = 2232) 209 MG/DL HDL CHOLESTEROL (test code = 2220) 47 MG/DL CALC LDL CHOL (test code = 2237) 89 MG/DL RISK RATIO LDL/HDL (test cod e = 2238) 1.89 RATIO Jaden PonceCOMPREHENSIVE METABOLIC [id number] 00:00:00* Test Item Value Reference Range Interpretation Comme nts GLUCOSE (test code = 2217) 106 MG/DL BUN (test code = 2208) 10 MG/DL CREATININE (test code = 2214) 0.64 MG/DL eGFR AMER. (test cod e = 36812) 110 ML/MIN/1.73 eGFR NON- AMER. (test code = 01919) 95 ML/MIN/1.73 CALC BUN/CREAT (test code = [...] (test code = 2219) 19 U/L Jaden [id number] 00:00:00* Test Item Value Reference Range Interpretation Comme adrián TSH, THIRD GENERATION (test code = 2821) 1.690 UIU/ML Jaden PonceCBC W/AUTO [id number] 00:00:00* Test Item Value Reference Range Interpretation [...] code = 1015) 249 K/UL Jaden Betancourt [facility] W/AUTO [id number] 00:00:00* Test Item Value Reference Range Interpretation [...] (test code = 1015) 249 K/UL HEMOGLOBIN [id number] 00:00:00* Test Item Value Reference Range Interpretation Comme nts HEMOGLOBIN A1c (test code = 37206) 5.7 % LIPID [id number] 00:00:00* Test Item Value Reference Range Interpretation Comme nts CHOLESTEROL (test code = 2210) 166 MG/DL TRIGLYCERIDES (test code = 2232) 209 MG/DL HDL CHOLESTEROL (test code = 2220) 47 MG/DL CALC LDL CHOL (test code = 2237) 89 MG/DL RISK RATIO LDL/HDL (test cod e = 2238) 1.89 RATIO COMPREHENSIVE METABOLIC [id number] 00:00:00* Test Item Value Reference Range Interpretation Comme nts GLUCOSE (test code = 2217) 106 MG/DL BUN (test code = 2208) 10 MG/DL CREATININE (test code = 2214) 0.64 MG/DL eGFR AMER. (test cod e = 87611) 110 ML/MIN/1.73 eGFR NON- AMER. (test code = 96680) 95 ML/MIN/1.73 CALC BUN/CREAT (test code = [...] ALT (test code = 2219) 19 U/L [id number] 00:00:00* Test Item Value Reference Range Interpretation Comme nts TSH, THIRD GENERATION (test code = 2821) 1.690 UIU/ML CBC W/AUTO [id number] 00:00:00* Test Item Value Reference Range Interpretation [...] (test code = 1015) 249 K/UL HEMOGLOBIN [id number] 00:00:00* Test Item Value Reference Range Interpretation Comme nts HEMOGLOBIN A1c (test code = 24422) 5.7 % LIPID [id number] 00:00:00* Test Item Value Reference Range Interpretation Comme nts CHOLESTEROL (test code = 2210) 166 MG/DL TRIGLYCERIDES (test code = 2232) 209 MG/DL HDL CHOLESTEROL (test code = 2220) 47 MG/DL CALC LDL CHOL (test code = 2237) 89 MG/DL RISK RATIO LDL/HDL (test cod e = 2238) 1.89 RATIO COMPREHENSIVE METABOLIC [id number] 00:00:00* Test Item Value Reference Range Interpretation Comme nts GLUCOSE (test code = 2217) 106 MG/DL BUN (test code = 2208) 10 MG/DL CREATININE (test code = 2214) 0.64 MG/DL eGFR AMER. (test cod e = 46960) 110 ML/MIN/1.73 eGFR NON- AMER. (test code = 68873) 95 ML/MIN/1.73 CALC BUN/CREAT (test code = [...] ALT (test code = 2219) 19 U/L [id number] 00:00:00* Test Item Value Reference Range Interpretation Comme nts TSH, THIRD GENERATION (test code = 2821) 1.690 UIU/ML CBC W/AUTO [id number] 00:00:00* Test Item Value Reference Range Interpretation [...] (test code = 1015) 249 K/UL HEMOGLOBIN [id number] 00:00:00* Test Item Value Reference Range Interpretation Comme nts HEMOGLOBIN A1c (test code = 32646) 5.7 % LIPID [id number] 00:00:00* Test Item Value Reference Range Interpretation Comme nts CHOLESTEROL (test code = 2210) 166 MG/DL TRIGLYCERIDES (test code = 2232) 209 MG/DL HDL CHOLESTEROL (test code = 2220) 47 MG/DL CALC LDL CHOL (test code = 2237) 89 MG/DL RISK RATIO LDL/HDL (test cod e = 2238) 1.89 RATIO COMPREHENSIVE METABOLIC [id number] 00:00:00* Test Item Value Reference Range Interpretation Comme nts GLUCOSE (test code = 2217) 106 MG/DL BUN (test code = 2208) 10 MG/DL CREATININE (test code = 2214) 0.64 MG/DL eGFR AMER. (test cod e = 81990) 110 ML/MIN/1.73 eGFR NON- AMER. (test code = 17811) 95 ML/MIN/1.73 CALC BUN/CREAT (test code = [...] ALT (test code = 2219) 19 U/L [id number] 00:00:00* Test Item Value Reference Range Interpretation Comme nts TSH, THIRD GENERATION (test code = 2821) 1.690 UIU/ML CBC W/AUTO [id number] 00:00:00* Test Item Value Reference Range Interpretation [...] (test code = 1015) 249 K/UL HEMOGLOBIN [id number] 00:00:00* Test Item Value Reference Range Interpretation Comme nts HEMOGLOBIN A1c (test code = 94152) 5.7 % LIPID [id number] 00:00:00* Test Item Value Reference Range Interpretation Comme nts CHOLESTEROL (test code = 2210) 166 MG/DL TRIGLYCERIDES (test code = 2232) 209 MG/DL HDL CHOLESTEROL (test code = 2220) 47 MG/DL CALC LDL CHOL (test code = 2237) 89 MG/DL RISK RATIO LDL/HDL (test cod e = 2238) 1.89 RATIO COMPREHENSIVE METABOLIC [id number] 00:00:00* Test Item Value Reference Range Interpretation Comme nts GLUCOSE (test code = 2217) 106 MG/DL BUN (test code = 2208) 10 MG/DL CREATININE (test code = 2214) 0.64 MG/DL eGFR AMER. (test cod e = 05175) 110 ML/MIN/1.73 eGFR NON- AMER. (test code = 15506) 95 ML/MIN/1.73 CALC BUN/CREAT (test code = [...] ALT (test code = 2219) 19 U/L [id number] 00:00:00* Test Item Value Reference Range Interpretation Comme nts TSH, THIRD GENERATION (test code = 2821) 1.690 UIU/ML Notes Date/Time Note Provider Source [facility]2024-09-20 00:00:00 [facility]2024-06-27 00:00:00 [facility]
[2024-07-30] MEDS ORDERED: MORPHINE 4 MG/ML SYR ONE (17:35)
[2024-07-30] MEDS ORDERED: PROMETHAZINE INJ 25 MG/ML AMP ONE (17:35)
[2024-07-30 17:45] LABS: Absolute Lymphocytes (CBC) 1.8 K/uL (0.7-4.9); Absolute Monocytes 0.5 K/uL (0.1-1.3); Absolute Neutrophil 5.3 K/uL (1.8-8.0); Basophils % 0.6 % (0-1.3); Eosinophils % 0.2 % (0-4.4); Hemoglobin 13.6 g/dL (12.0-15.0); Lymphocytes % 23.2 % (15.3-44.8); MCH 33.8 pg (27.0-35.0); MCHC 35.9 g/dL (32.0-36.0); MCV 94.2 fL (80-100); MPV 6.5 fL (7.6-11.3); Monocytes % 6.2 % (3.3-12.3); Neutrophils % 69.8 % (41.7-73.7); Platelets 331 thou/uL (152-406); RBC Red Blood Cell Count 4.03 M/uL (3.86-4.86); Red Cell Distribution Width 13.5 % (12.1-15.2)
[2024-07-30 17:53] LABS: Albumin 3.3 g/dL (3.4-5.0); Albumin/Globulin Ratio 0.9 (1.1-1.8); Anion Gap 10.2 mEq/L (5.0-15.0); Bilirubin Total 0.5 mg/dL (0.2-1.0); Globulin 3.6 g/dL (2.3-3.5); Potassium 3.2 mEq/L (3.5-5.1); Protein, Total 6.9 g/dL (6.4-8.2)
[2024-07-30 18:09] LABS: Specific Gravity < 1.005 (1.005-1.030); Sqamous Epithelial <5 /HPF (None Seen); Urine Bacteria None Seen /HPF (<20); Urine Bilirubin NEGATIVE (Negative); Urine Blood Negative (Negative); Urine Clarity Clear (Clear); Urine Color Colorless (Yellow); Urine Culture Reflex Order NOT NEEDED; Urine Glucose NEGATIVE (Negative); Urine Ketones NEGATIVE (Negative); Urine Microscopic Reflex YN ORDER UMIC; Urine Nitrite NEGATIVE (Negative); Urine Protein NEGATIVE (Negative); Urine RBC <5 /HPF (None Seen); Urine Urobilinogen Normal (Normal); Urine WBC None Seen /HPF (<5)
--- NOTE | 2024-07-30 18:44 | EDPHYS ---
Physician Documentation [facility] Name: Delmi Pool Age: 69 yrs Sex: Female : 1955 Arrival Date: 07/30/2024 Time: 16:55 Bed 7 Private MD: ED Physician Brendon Lora HPI: 07/30 18:43 This 69 yrs old Female presents to ER via EMS with complaints of Abdominal Pain. rt 18:43 Patient presents to the ED with abdominal pain, nausea, vomiting. Patient has history rt of gastroparesis. Patient was recently for hyponatremia,, reportedly left on Friday, had worsening symptoms following on Friday persisting. Denies other acute complaints at this time, symptoms are moderate in severity, no other aggravating alleviating factors.. Historical: - Allergies: 17:12 Sulfa (Sulfonamide Antibiotics); ph 17:12 Toradol; ph 17:12 tramadol; ph - PMHx: 17:12 diabetes mellitus; Hypercholesterolemia; Hypertensive disorder; neuropathy; ph - PSHx: 17:12 Appendectomy; Bowel Retracement; section; Cholecystectomy; ph - Immunization history:: Adult Immunizations unknown. - Infectious Disease History:: Denies. - Social history:: Smoking status: Patient reports the use of cigarette tobacco products, smokes one-half pack cigarettes per day. - Family history:: not pertinent. ROS: 18:43 Constitutional: Negative for fever, chills, and weight loss, Cardiovascular: Negative rt for chest pain, palpitations, and edema, Respiratory: Negative for shortness of breath, cough, wheezing, and pleuritic chest pain, MS/Extremity: Negative for injury and deformity, Skin: Negative for injury, rash, and discoloration, Neuro: Negative for headache, weakness, numbness, tingling, and seizure, 18:43 Abdomen/GI: Positive for abdominal pain, nausea and vomiting, Exam: 18:43 Constitutional: This is a well developed, well nourished patient who is awake, alert, rt and in no acute distress. Head/Face: Normocephalic, atraumatic. Chest/axilla: Normal chest wall appearance and motion. Nontender with no deformity. No lesions are appreciated. Cardiovascular: Regular rate and rhythm with a normal S1 and S2. No gallops, murmurs, or rubs. Normal PMI, no JVD. No pulse deficits. Respiratory: Lungs have equal breath sounds bilaterally, clear to auscultation and percussion. No rales, rhonchi or wheezes noted. No increased work of breathing, no retractions or nasal flaring. Skin: Warm, dry with normal turgor. Normal color with no rashes, no lesions, and no evidence of cellulitis. MS/ Extremity: Pulses equal, no cyanosis. Neurovascular intact. Full, normal range of motion. Neuro: Awake and alert, GCS 15, oriented to person, place, time, and situation. Cranial nerves II-XII grossly intact. Motor strength 5/5 in all extremities. Sensory grossly intact. Cerebellar exam normal. Normal gait. 18:43 Abdomen/GI: Tenderness diffusely without rebound, guarding, distention, Vital Signs: 17:11 BP 121 / 77; Pulse 80; Resp 18; Temp 98.4; Pulse Ox 98% on R/A; Weight 58.97 kg; Height ph 5 ft. 0 in. ; 19:57 BP 144 / 67; Pulse 72; Resp 18; Temp 98.4; Pulse Ox 98% ; Pain 5/10; bm8 17:11 Body Mass Index 25.39 (58.97 kg, 152.4 cm) ph 19:57 Pain Scale: Adult bm8 Mayte Coma Score: 19:57 Eye Response: spontaneous(4). Motor Response: obeys commands(6). Verbal Response: bm8 oriented(5). Total: 15. MDM: 17:10 Medical Screening Exam initiated rt 18:44 Differential Diagnosis Gastroparesis, hyponatremia, electrolyte disturbance. Data rt reviewed: vital signs, nurses notes, lab test result(s). Consideration of Admission/Observation Patient was admitted/placed on observation. Management of patient was discussed with the following: Hospitalist: Agrees to admit. I considered the following discharge prescriptions or medication management in the emergency department Medications were administered in the Emergency Department. See MAR. Test considered but Not performed: CT: Patient with recent CT scan, multiple evaluations for the same, do not believe that repeat imaging is indicated, will try to spare patient radiation dose.. Care significantly affected by the following chronic conditions: Diabetes. Counseling: I had a detailed discussion with the patient and/or guardian regarding the historical points, exam findings, and any diagnostic results supporting the discharge/admit diagnosis, lab results. Response to treatment: the patient's symptoms have mildly improved after treatment. 07/30 17:19 Order name: CBC with Diff; Complete Time: 18:10 rt 07/30 17:19 Order name: CMP; Complete Time: 18:10 rt 07/30 17:19 Order name: Lipase; Complete Time: 18:10 rt 07/30 17:19 Order name: Urinalysis w/ reflexes; Complete Time: 18:10 rt 07/30 19:08 Order name: Urinalysis w/ reflexes EDMS 07/30 19:08 Order name: CBC with Automated Diff EDMS 07/30 19:08 Order name: CBC with Automated Diff EDMS 07/30 19:08 Order name: Comprehensive Metabolic Panel EDMS 07/30 19:08 Order name: Comprehensive Metabolic Panel EDMS 07/30 17:19 Order name: IV Saline Lock; Complete Time: 17:41 rt 07/30 17:19 Order name: Labs collected and sent; Complete Time: 17:41 rt Administered Medications: 17:41 Drug: Promethazine IVP 12.5 mg IVP once Route: IVP; Site: left forearm; ph 18:33 Follow up: Response: No adverse reaction ph 17:42 Drug: morphine IVP or IV 4 mg IVP once over 4 mins Route: IVP; Infused Over: 4 mins; ph Site: left forearm; 18:33 Follow up: Response: No adverse reaction; Pain is decreased ph 19:56 Drug: Pantoprazole IVP 40 mg IVP once Route: IVP; Site: left wrist; bm8 19:56 Follow up: Response: No adverse reaction bm8 Disposition Summary: 07/30/24 18:43 Hospitalization Ordered Notes: Hospitalization Status: Observation rt Provider: Jay Anna rt Location: Telemetry/MedSurg (observation) rt Condition: Stable rt Problem: an acute exacerbation rt Symptoms: have improved rt Bed/Room Type: Standard rt Room Assignment: 205(07/30/24 19:12) Diagnosis - Gastroparesis rt Forms: - Medication Reconciliation Form rt - SBAR form rt - Leadership Thank You Letter rt Signatures: Dispatcher MarvHo Mary Martinez RN RN Dacia Andrews RN RN Brendon Lora MD MD rt Denny, Kodi, RN RN bm8 Corrections: (The following items were deleted from the chart) 17:19 17:19 CBC+H.LAB.BRZ ordered. EDMS EDMS 17:19 17:19 COMPREHENSIVE METABOLIC PANEL+C.LAB.BRZ ordered. EDMS EDMS 17: 17:19 LIPASE+C.LAB.BRZ ordered. EDMS EDMS 17: 17:19 Urinalysis+U.LAB.BRZ ordered. EDMS EDMS 19:12 18:43 rt cg
--- NOTE | 2024-07-30 18:44 | ER ---
Nurse's Notes [facility] Name: Delmi Pool Age: 69 yrs Sex: Female : 1955 Arrival Date: 07/30/2024 Time: 16:55 Bed 7 Private MD: Diagnosis: Gastroparesis Presentation: 07/30 17:11 Chief complaint: EMS states: Pt c/o abdominal pain, N/V since Friday, no vomiting ph witnessed by EMS. Coronavirus screen: Vaccine status: Patient reports being unvaccinated. Ebola Screen: No symptoms or risks identified at this time. Initial Sepsis Screen: Does the patient meet any 2 criteria? No. Patient's initial sepsis screen is negative. Does the patient have a suspected source of infection? No. Patient's initial sepsis screen is negative. Risk Assessment: Do you want to hurt yourself or someone else? Patient reports no desire to harm self or others. Onset of symptoms was July 30, 2024. 17:11 Method Of Arrival: EMS: [facility] ph 17:11 Acuity: GILBERTO 3 ph Triage Assessment: 17:13 General: Appears in no apparent distress. Behavior is cooperative, appropriate for age, ph anxious. Pain: Complains of pain in abdomen. Neuro: Level of Consciousness is awake, alert, obeys commands, Oriented to person, place, time, situation. Cardiovascular: Capillary refill < 3 seconds in bilateral fingers Patient's skin is warm and dry. Respiratory: Airway is patent Respiratory effort is even, unlabored. GI: Abdomen is non-distended, Reports lower abdominal pain, upper abdominal pain, nausea, vomiting. Derm: Skin is pink, warm \T\ dry. Historical: - Allergies: 17:12 Sulfa (Sulfonamide Antibiotics); ph 17:12 Toradol; ph 17:12 tramadol; ph - PMHx: 17:12 diabetes mellitus; Hypercholesterolemia; Hypertensive disorder; neuropathy; ph - PSHx: 17:12 Appendectomy; Bowel Retracement; section; Cholecystectomy; ph - Immunization history:: Adult Immunizations unknown. - Infectious Disease History:: Denies. - Social history:: Smoking status: Patient reports the use of cigarette tobacco products, smokes one-half pack cigarettes per day. - Family history:: not pertinent. Screenin:14 [facility] ED Fall Risk Assessment (Adult) History of falling in the last 3 months, ph including since admission No falls in past 3 months (0 pts) Confusion or Disorientation No (0 pts) Intoxicated or Sedated No (0 pts) Impaired Gait No (0 pts) Mobility Assist Device Used No (0 pt) Altered Elimination No (0 pt) Score/Fall Risk Level 0 - 2 = Low Risk Oriented to surroundings, Maintained a safe environment, Hourly rounding (assess needs \T\ fall precautionary measures) done. Abuse screen: Denies threats or abuse. Denies injuries from another. Nutritional screening: No deficits noted. Tuberculosis screening: No symptoms or risk factors identified. Assessment: 19:57 General: Appears in no apparent distress. uncomfortable, Behavior is calm, cooperative, bm8 appropriate for age. Pain: Complains of pain in abdomen Pain currently is 5 out of 10 on a pain scale. Quality of pain is described as aching, crampy. Neuro: No deficits noted. Level of Consciousness is awake, alert, obeys commands, Oriented to person, place, time, situation, Appropriate for age. Cardiovascular: No deficits noted. Capillary refill < 3 seconds in bilateral fingers Patient's skin is warm and dry. Respiratory: Airway is patent Respiratory effort is even, unlabored, Respiratory pattern is regular, symmetrical, Breath sounds are clear. GI: Abdomen is flat, non-distended, Bowel sounds present X 4 quads. Abdomen is tender to palpation X 4 quads. Reports lower abdominal pain, upper abdominal pain, intolerance of fluids, intolerance of food, nausea, Pain is 5 out of 10 on a pain scale. vomiting. : No signs and/or symptoms were reported regarding the genitourinary system. EENT: No signs and/or symptoms were reported regarding the EENT system. Derm: No signs and/or symptoms reported regarding the dermatologic system. Musculoskeletal: No signs and/or symptoms reported regarding the musculoskeletal system. Vital Signs: 17:11 BP 121 / 77; Pulse 80; Resp 18; Temp 98.4; Pulse Ox 98% on R/A; Weight 58.97 kg; Height ph 5 ft. 0 in. ; 19:57 BP 144 / 67; Pulse 72; Resp 18; Temp 98.4; Pulse Ox 98% ; Pain 5/10; bm8 17:11 Body Mass Index 25.39 (58.97 kg, 152.4 cm) ph 19:57 Pain Scale: Adult bm8 Gaylord Coma Score: 19:57 Eye Response: spontaneous(4). Motor Response: obeys commands(6). Verbal Response: bm8 oriented(5). Total: 15. ED Course: 17:00 Patient arrived in ED. ph 17:01 Brendon Lora MD is Attending Physician. rt 17:02 Steven John, UBALDO is Primary Nurse. bp 17:12 Triage completed. ph 17:13 Arm band placed on Patient placed in an exam room, on a stretcher, on pulse oximetry. ph 17:14 Patient has correct armband on for positive identification. Bed in low position. Call ph light in reach. Side rails up X 1. Pulse ox on. NIBP on. Door closed. Noise minimized. Warm blanket given. Pillow given. 17:31 Initial lab(s) drawn, by me, sent to lab. Inserted saline lock: 20 gauge in left ph forearm, using aseptic technique. Blood collected. Flushed with 10 mL NS. 18:07 No provider procedures requiring assistance completed. ph 18:43 Jay Anna MD is Hospitalizing Provider. rt 19:57 Provided Education on: need for admission. bm8 19:57 Patient admitted, IV remains in place. bm8 Administered Medications: 17:41 Drug: Promethazine IVP 12.5 mg IVP once Route: IVP; Site: left forearm; ph 18:33 Follow up: Response: No adverse reaction ph 17:42 Drug: morphine IVP or IV 4 mg IVP once over 4 mins Route: IVP; Infused Over: 4 mins; ph Site: left forearm; 18:33 Follow up: Response: No adverse reaction; Pain is decreased ph 19:56 Drug: Pantoprazole IVP 40 mg IVP once Route: IVP; Site: left wrist; bm8 19:56 Follow up: Response: No adverse reaction bm8 Medication: 17:14 VIS not applicable for this client. ph Outcome: 18:43 Decision to Hospitalize by Provider. rt 19:57 Admitted to Med/surg accompanied by tech, via stretcher, with chart, bm8 19:57 Condition: stable 19:57 Instructed on the need for admit, Demonstrated understanding of follow-up care, medications, 20:52 Patient left the ED. bm8 Signatures: Mary Olivarez RN RN ph Steven John RN RN bp Brendon Lora MD MD rt Kodi Denny RN RN bm8 Corrections: (The following items were deleted from the chart) 19:56 19:56 Pantoprazole IVP 40 mg IVP in left antecubital bm8 bm8
[2024-07-30] MEDS ORDERED: ACETAMINOPHEN 325 MG TABLET PO PRN (19:04)
--- NOTE | 2024-07-30 19:04 | P.HP ---
Certification for Inpatient Patient admitted to: Inpatient With expected LOS: >2 Midnights Practitioner: I am a practitioner with admitting privileges, knowledge of patient current condition, hospital course, and medical plan of care. Services: Services provided to patient in accordance with Admission requirements found in Title 42 Section 412.3 of the Code of Federal Regulations Patient History Date of Service: 07/30/24 Reason for admission: Intractable nausea and Vomiting, Abdominal Pain History of Present Illness: 69-year-old woman with a past medical history significant for diabetes, HTN, history of SBO, and chronic hyponatremia presented to the emergency room complaining of abdominal pain and intractable nausea and vomiting.. The patient states that she has had several hospital visits for abdominal pain, She describes her abdominal pain is located mainly in the epigastric region, without radiation, and of an aching quality. Associated with nausea intractable and vomiting . vomited more than 5 times over the last 2 days. She denies vomiting blood. Patient is a current smoker. She denies fever, cough, dyspnea, and urinary symptoms. Patient was assessed in the ER and is found to have hyponatremia and intractable nausea and vomiting and was admitted for further management . Allergies ketorolac [From Toradol] Allergy (Verified 09/27/22 18:46) Itching/Hives/Rash Sulfa (Sulfonamide Antibiotics) Allergy (Verified 08/20/14 13:11) Itching/Hives/Rash tramadol Allergy (Verified 09/27/22 18:46) Shortness of breath Home medications list reviewed: Yes Home Medications: Gabapentin 800 mg PO TID 06/10/23 Losartan Potassium 50 mg PO DAILY AFTER SUPPER 06/10/23 Ondansetron [Zofran (Odt)*] 4 mg PO Q6H PRN #20 tab 03/23/24 Pantoprazole [Protonix Tab*] 40 mg PO DAILY 30 Days #30 tab 04/21/24 Clopidogrel Bisulfate [Plavix*] 75 mg PO DAILY #30 tab 07/25/24 Hydrocodone 7.5/APAP 325 [[place] 7.5/325 mg*] 1 tab PO Q4H PRN #15 tab 07/25/24 Sodium Chloride Tab [Sodium Chloride*] 1 gm PO BIDWM #60 tab 07/25/24 carvediloL [Coreg*] 3.125 mg PO BID 6AM 6PM #60 tab 07/25/24 - Past Medical/Surgical History Diabetic: No Past Medical History: Reviewed- Non-Contributory -: NIDDM2 -: HTN -: GERD -: Chronic pain -: Hyponatremia -: SBO Past Surgical History: Reviewed- Non-Contributory -: hysterectomy -: -: bowel resection -: Gallbladder Psychosocial/ Personal History: Lives in her home with her Son and his - Family History Family History: Reviewed- Non-Contributory - Family History Father -: Other (see notes) Notes: thought to have from cancer Mother -: Other (see notes) Notes: spinal stenosis Brother -: Heart disease, Diabetes Notes: stents. stenosis Sister -: Blood disorders Notes: form of leukemia - Social History Smoking Status: Current some day smoker Alcohol use: No CD- Drugs: No Caffeine use: Yes Review of Systems 10-point ROS is otherwise unremarkable Physical Examination - Vital Signs Temperature: 97.8 F Blood Pressure: 146/72 Pulse: 78 Respirations: 18 Pulse Ox (%): 94 - Physical Exam General: Alert, Oriented x3, Moderate distress HEENT: Atraumatic, Normocephalic Neck: Supple, No LAD Respiratory: Clear to auscultation bilaterally, Normal air movement Cardiovascular: Regular rate/rhythm, Normal S1 S2 Capillary refill: <2 Seconds Gastrointestinal: W/out hepatosplenomegaly, Tenderness Musculoskeletal: No clubbing, No swelling Integumentary: No rashes Neurological: Normal strength at 5/5 x4 extr, Cranial nerves 3-12 intact, Normal reflexes 2+ Lymphatics: No axilla or inguinal lymphadenopathy - Studies Laboratory Data (last 24 hrs) 07/30/24 07/30/24 17:26 17:26 WBC 7.60 Hgb 13.6 Hct 38.0 Plt Count 331 Sodium 129 L Potassium 3.2 L BUN 4 L Creatinine 0.29 L Glucose 123 H Total Bilirubin 0.5 AST 11 L ALT 20 Alkaline Phosphatase 73 Lipase 24 Assessment and Plan - Plan Possible gastroparesis Intractable nausea and vomiting Intractable abdominal pain Pain control Monitor closely on telemetry Started on IV hydration Will keep n.p.o. for now Will get a CT of the abdomen pelvis Will add Reglan Hyponatremia Dehydration Started on IV hydration Monitor volume status Electrolytes monitor and replace accordingly Hypertension Antihypertensives titrated Continue home medications and titrate as needed Hyperlipidemia Continue statin Diabetes Insulin sliding scale Accu-Chek before every meal and at bedtime Hypokalemia Replaced monitor and replace accordingly GI/DVT prophylaxis Advanced directive full code Discharge Plan: Home Plan to discharge in: 48 Hours - Advance Directives Does patient have a Living Will: No Does patient have a Durable POA for Healthcare: No - Code Status/Comfort Care Code Status: Full Code Time Spent Managing Pts Care (In Minutes): 54
[2024-07-30] MEDS ORDERED: HYDROCODONE/APAP 5/325 MG TAB PO PRN (19:06)
[2024-07-30] MEDS ORDERED: PANTOPRAZOLE 40 MG INJ ONE (19:40)
[2024-07-30] MEDS: NA CHLORIDE 0.9% 1,000 ML IV SCH (21:16)
[2024-07-30] MEDS: METOCLOPRAMIDE 10 MG/2mL INJ IV SCH (21:16)
[2024-07-30] MEDS: MORPHINE 2 MG/ML SYR IV PRN (21:36)
[2024-07-30] MEDS: ONDANSETRON 4 MG/2 ML VIAL IV PRN (23:56)
[2024-07-31] MEDS ORDERED: ONDANSETRON 4 MG/2 ML VIAL IV PRN (03:46)
[2024-07-31] MEDS: ONDANSETRON 4 MG/2 ML VIAL IV PRN (03:57)
[2024-07-31 05:38] LABS: Absolute Lymphocytes (CBC) 1.9 K/uL (0.7-4.9); Absolute Monocytes 0.5 K/uL (0.1-1.3); Absolute Neutrophil 3.3 K/uL (1.8-8.0); Basophils % 0.7 % (0-1.3); Eosinophils % 0.5 % (0-4.4); Hematocrit 38.2 % (36.0-45.0); Hemoglobin 13.2 g/dL (12.0-15.0); MCH 33.1 pg (27.0-35.0); MCHC 34.5 g/dL (32.0-36.0); MPV 6.4 fL (7.6-11.3); Monocytes % 9.4 % (3.3-12.3); Neutrophils % 57.4 % (41.7-73.7); Nucleated Red Blood Cells % 0.1 % (0-0); Platelets 317 thou/uL (152-406); RBC Red Blood Cell Count 3.98 M/uL (3.86-4.86); Red Cell Distribution Width 13.8 % (12.1-15.2)
[2024-07-31 05:56] VITALS: O2SAT 92
[2024-07-31 05:56] LABS: ALT/SGPT 17 U/L (13-56); Albumin 3.2 g/dL (3.4-5.0); Albumin/Globulin Ratio 1.1 (1.1-1.8); Alkaline Phosphatase 63 U/L (45-117); Anion Gap 11.5 mEq/L (5.0-15.0); BUN Blood Urea Nitrogen 6 mg/dL (7-18); Bicarbonate 26 mEq/L (21-32); Bilirubin Total 0.4 mg/dL (0.2-1.0); Glomerular Filtration Rate 106 ml/min (=/>90); Glucose Level 105 mg/dL (74-106); Potassium 3.5 mEq/L (3.5-5.1); Protein, Total 6.2 g/dL (6.4-8.2); Sodium Level 137 mEq/L (136-145)
[2024-07-31 06:05] LABS: AST/SGOT < 10 U/L (15-37)
[2024-07-31] MEDS: POTASSIUM 25 MEQ EFFERV TAB PO ONE (08:28)
[2024-07-31] MEDS: ENOXAPARIN 40 MG/0.4 ML SQ SCH (08:29)
--- NOTE | 2024-07-31 08:38 | RAD REPORT ---
EXAMINATION: CT ABDOMEN AND PELVIS WITH CONTRAST CLINICAL INDICATION: intractable abdominal pain TECHNIQUE: CT abdomen and pelvis was performed, after the administration of IV contrast, as per [facility]. Axial, sagittal and coronal reconstructions were obtained. One or more of the following dose reduction techniques were used: Automated exposure control, adjustment of the mA and k V according to patient size, and iterative reconstruction. Unless otherwise specified, incidental findings do not require dedicated imaging follow-up. COMPARISON: 04/15/2024 FINDINGS: LOWER CHEST: Mild linear atelectasis is present in both lung bases. LIVER: Mild fatty liver is present. No focal lesion or biliary dilatation is seen. Cholecystectomy clips. SPLEEN: Normal size. No focal lesion. PANCREAS: No mass, ductal dilation, or rayna-pancreatic fluid. ADRENALS: Mild thickening is seen of both adrenal glands. KIDNEYS: Normal size and contour. No hydronephrosis. GASTROINTESTINAL TRACT: No evidence of free air, significant intra-abdominal free fluid, bowel obstru ction or abscess. APPENDIX: Normal appendix. LYMPH NODES: No lymphadenopathy. MUSCULOSKELETAL: Mild multilevel spinal degenerative changes. ADDITIONAL FINDINGS: Moderate aortoiliac atherosclerosis. IMPRESSION: No acute or concerning abnormalities seen in the abdomen or pelvis.
[2024-07-31 09:22] LABS: Sqamous Epithelial <5 /HPF (None Seen); Transitional Epithelial <5 /HPF (None Seen); Urine Bacteria None Seen /HPF (<20); Urine Bilirubin NEGATIVE (Negative); Urine Blood Negative (Negative); Urine Clarity Clear (Clear); Urine Color Light-Yellow (Yellow); Urine Culture Reflex Order NOT NEEDED; Urine Glucose NEGATIVE (Negative); Urine Ketones NEGATIVE (Negative); Urine Microscopic Reflex YN ORDER UMIC; Urine Mucus Slight /HPF (None Seen); Urine Nitrite NEGATIVE (Negative); Urine Protein TRACE (Negative); Urine RBC <5 /HPF (None Seen); Urine Urobilinogen Normal (Normal); Urine WBC <5 /HPF (<5); Urine pH 6.5 (5.0-7.0)
--- NOTE | 2024-07-31 11:56 | P.PN ---
Subjective Date of Service: 07/31/24 Chief Complaint: Intractable nausea and Vomiting, Abdominal Pain No change in patient's condition since still continues to complain of abdominal pain nausea vomiting patient has had recurrent admissions for the same problem s/p EGD history of COPD using Trelegy Review of Systems General: Weakness Gastrointestinal: Vomiting, Abdominal Pain Physical Examination - Vital Signs Temperature: 98.1 F Blood Pressure: 142/72 Pulse: 70 Respirations: 16 Pulse Ox (%): 95 - Physical Exam General: Alert, Oriented x3, Mild distress Respiratory: Clear to auscultation bilaterally Cardiovascular: No edema, Regular rate/rhythm Gastrointestinal: Normal bowel sounds, Tenderness (Generalized tenderness) - Studies Laboratory Data (last 24 hrs) 07/30/24 07/30/24 17:26 17:26 WBC 7.60 Hgb 13.6 Hct 38.0 Plt Count 331 Sodium 129 L Potassium 3.2 L BUN 4 L Creatinine 0.29 L Glucose 123 H Total Bilirubin 0.5 AST 11 L ALT 20 Alkaline Phosphatase 73 Lipase 24 Assessment And Plan - Current Problems (Diagnosis) (1) Abdominal pain Current Visit: No Status: Acute Plan: Patient is 69 years of age has been complaining of chronic abdominal pain nausea vomiting associated with hyponatremia there is no history of diabetes CT scan was unremarkable 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
[2024-07-31] MEDS: GABAPENTIN 400 MG CAP PO SCH (13:24)
[2024-07-31] MEDS: ERYTHROMYCIN BASE 250 MG TAB PO SCH (13:24)
[2024-07-31] MEDS: FLU (Fluarix Triv) TS24-25(6MOS UP)/PF 45 MCG/0.5 ML Syringe IM ONE (13:27)
[2024-07-31] MEDS: LOSARTAN POTASSIUM 50 MG TABLET PO SCH (17:30)
[2024-07-31] MEDS: carvediloL 3.125 MG TAB PO SCH (18:00)
[2024-07-31] MEDS: HYDROCODONE/APAP 7.5/325 MG TAB PO PRN (19:48)
[2024-07-31] MEDS: HYDROMORPHONE HCL 0.5 MG/0.5 ML INJ IV PRN (20:44)
--- NOTE | 2024-08-01 06:27 | P.PN ---
Subjective Date of Service: 08/01/24 Chief Complaint: Intractable nausea and Vomiting, Abdominal Pain Review of Systems 10-point ROS is otherwise unremarkable Physical Examination - Vital Signs Temperature: 97.9 F Blood Pressure: 127/58 Pulse: 72 Respirations: 18 Pulse Ox (%): 97 - Physical Exam General: Alert, In no apparent distress HEENT: Atraumatic, Normocephalic Neck: Supple Respiratory: Clear to auscultation bilaterally, Normal air movement Cardiovascular: Regular rate/rhythm, Normal S1 S2 Capillary refill: <2 Seconds Gastrointestinal: Soft and benign, W/out hepatosplenomegaly Musculoskeletal: No clubbing Integumentary: No rashes, No tenderness/swelling Neurological: Normal speech, Normal strength at 5/5 x4 extr Lymphatics: No axilla or inguinal lymphadenopathy Assessment And Plan - Plan Possible gastroparesis Intractable nausea and vomiting Intractable abdominal pain Pain control Monitor closely on telemetry Started on IV hydration Will keep n.p.o. for now Will get a CT of the abdomen pelvis Will add Reglan Hyponatremia Dehydration Started on IV hydration Monitor volume status Electrolytes monitor and replace accordingly Hypertension Antihypertensives titrated Continue home medications and titrate as needed Hyperlipidemia Continue statin Diabetes Insulin sliding scale Accu-Chek before every meal and at bedtime Hypokalemia Replaced monitor and replace accordingly GI/DVT prophylaxis Advanced directive full code Discharge Plan: Home Plan to discharge in: 48 Hours Time Spent Managing PTS Care (In Minutes): 54
[2024-08-01 06:38] LABS: Anion Gap 7.7 mEq/L (5.0-15.0); Potassium 3.7 mEq/L (3.5-5.1)
[2024-08-01] MEDS: PANTOPRAZOLE 40MG TABLET PO SCH (08:56)
[2024-08-01] MEDS ORDERED: CLOPIDOGREL 75 MG TABLET PO SCH (09:00)
[2024-08-02] MEDS: clonazePAM 0.5 MG TAB PO SCH (01:32)
[2024-08-02 01:44] VITALS: BMI 19.7
[2024-08-02 06:23] LABS: Absolute Basophils 0.1 K/uL (0-0.5); Absolute Eosinophils 0.1 K/uL (0-0.5); Absolute Lymphocytes (CBC) 1.6 K/uL (0.7-4.9); Absolute Monocytes 0.5 K/uL (0.1-1.3); Absolute Neutrophil 2.6 K/uL (1.8-8.0); Basophils % 1.8 % (0-1.3); Eosinophils % 1.3 % (0-4.4); Hematocrit 33.1 % (36.0-45.0); Hemoglobin 11.3 g/dL (12.0-15.0); MCH 33.4 pg (27.0-35.0); MCHC 34.3 g/dL (32.0-36.0); MCV 97.2 fL (80-100); MPV 6.4 fL (7.6-11.3); Monocytes % 9.6 % (3.3-12.3); Neutrophils % 54.3 % (41.7-73.7); Nucleated Red Blood Cells % 0.1 % (0-0); Platelets 251 thou/uL (152-406); Red Cell Distribution Width 14.2 % (12.1-15.2)
[2024-08-02 06:34] LABS: Anion Gap 8.9 mEq/L (5.0-15.0); Potassium 3.9 mEq/L (3.5-5.1)
[2024-08-02] MEDS: ONDANSETRON 4 MG (ODT) TAB PO PRN (12:25)
--- NOTE | 2024-08-02 13:50 | P.PN ---
Subjective Date of Service: 08/02/24 Chief Complaint: Intractable nausea and Vomiting, Abdominal Pain Patient states she feels significantly better since her admission and has been tolerating diet without issue. She no longer has abdominal pain and feels well. Review of Systems 10-point ROS is otherwise unremarkable Physical Examination - Vital Signs Temperature: 98.4 F Blood Pressure: 110/58 Pulse: 65 Respirations: 14 Pulse Ox (%): 98 - Physical Exam General: Alert, In no apparent distress, Oriented x3, Cooperative Respiratory: Clear to auscultation bilaterally Gastrointestinal: Soft and benign, Non-distended, No ascites, No tenderness, No masses, No rebound, No guarding Assessment And Plan - Plan Patient is a 69-year-old woman who has abdominal pain of uncertain etiology. -Advance diet slowly as tolerated -Patient may require additional workup as an outpatient including gastric emptying study, small bowel series, etc. -Ambulate as tolerated. -Continue medical management per primary team. -Will review prior endoscopy notes. When available
[2024-08-03 12:10] VITALS: BP 158/70; TEMP 97.8
--- NOTE | 2024-08-03 16:47 | RAD REPORT ---
EXAMINATION: Small bowel series CLINICAL INDICATION: Female, 69 years old. ileus COMPARISON: No prior exam. FINDINGS: Motion Picture Commentator film shows a nonspecific bowel gas pattern. No obstruction or free air. No suspicious calcifica tions. Cholecystectomy clips. Gastric size and mucosal fold pattern are normal. No delay in transit of contrast into the small ze l. Small bowel is normal in diameter with no mucosal fold thickening. No intrinsic or extrinsic mass identifiable. Terminal ileum has normal appearance. Transit time to the colon is mildly delayed. . No fluoroscopy was performed. Total images acquired:12 IMPRESSION: Mild delay in transit time from the stomach to colon, otherwise negative study.
== END 2024-08-03 15:00 | disposition home or self-care (01) | DRG 641 ==
LOC: ER 16:55 → ERHOLD 19:04 → 2ND 19:52
PROVIDERS: ADMIT Family Medicine; ATTEND Hospitalist
DX: E87.1 Hypo-osmolality and hyponatremia (principal); E87.6 Hypokalemia; E86.0 Dehydration; I10 Essential (primary) hypertension; G62.9 Polyneuropathy, unspecified; E78.00 Pure hypercholesterolemia, unspecified; K31.84 Gastroparesis; J44.9 Chronic obstructive pulmonary disease, unspecified; F17.210 Nicotine dependence, cigarettes, uncomplicated; Z23 Encounter for immunization; Z88.2 Allergy status to sulfonamides; Z88.5 Allergy status to narcotic agent; Z94.9 Transplanted organ and tissue status, unspecified; Z79.02 Long term (current) use of antithrombotics/antiplatelets; Z79.899 Other long term (current) drug therapy; Z90.710 Acquired absence of both cervix and uterus
CPT/HCPCS: 36415; 74177; 74250; 80048; 80053; 81001; 82947; 83690; 85025; 90656; 99285; J1171; J1650; J2270; J2405; J2470; J2550; J2765; J7030; Q0162; Q9967

== ENCOUNTER 2024-08-10 17:08 | Inpatient (IN) | payer OTHER ==
--- OUTSIDE RECORDS SUMMARY | 2024-08-10 17:18 | XMS REPORT | Continuity of Care Document ---
Author Name Unknown Address [address] [facility] [address] [place] [address] Organization [facility] [place] Address [address] [facility] [address] [place] [address] Care Team Providers Care Health Information Systems Technician Name Role Phone Pcp, Patient Does Not Have A Primary Care Physic juan Doctor Unassigned, [place] Attending Clinician U Maegan Valdez MD Attending Clinician [phone] MAEGAN HEAD Attending Clinician Unavailabl e AMBREEN_FARHANA Attending Clinician Unavailable AMBREEN_SUYAPA Admitting Clinician Unavailable Payers Payer Name Policy Type Policy Number Effective Date Expirati on Date Source [employer] (MEDICARE REPLACEMENT HMO) [id number] 2022 00:00:00 Allergies, Adverse Reactions, Alerts Allergy Name Allergy Type Status Severity Reaction(s) Onset Date Inactive Date Treating Clinician Comments Source Sulfa (Sulfona mide Antibiot ics) Propensi ty to adverse reaction to drug Inactiv e 07-21 00:00: 00 Jaden Ponce NO KNOWN ALLERGIE S Drug Class Active [facility] Social History Social Habit Start Date Stop Date Quantity Comments Source Exposure to SARS-CoV-2 (event) 2022-09-27 00:00:00 2022-10-07 14:36:00 Not sure [facility] Sex Ass[birth year] At 1955 00:00:00 1955 00:00:00 [facility] Smoking Status Start Date Stop Date Source Tobacco smoking consumption unknown [facility] Medications Ordered Medication Name Filled Medication Name Start Date Stop Date Current Medication? Ordering Clinician Indication Dosage Frequency Signature (SIG) Comments Components Source olopatadine 0.2 % eye drops 2023-05 0- 00:00: 00 Yes 1% Jaden Ponce promethazin e 25 mg tablet 2023-05- 00:00: 00 Yes mg Jaden Ponce albuterol [...] NOSTRIL TWICE DAILY. 08-03 00:00: 00 Yes [id number] Jaden Ponce INHALE 1 PUFF TWICE DAILY. 08-03 00:00: 00 Yes [id number] 5 Jaden Ponce TAKE 1 TABLET BY MOUTH DAILY 08-03 00:00: 00 Yes 10 Jaden Ponce TAKE 1 TABLET BY MOUTH 4 TIMES DAILY. 08-03 00:00: 00 Yes 800 Jaden Ponce TAKE 1 TABLET BY MOUTH DAILY 08-03 00:00: 00 Yes 50 Jaden Ponce INHALE 2 PUFFS BY MOUTH EVERY 4 TO 6 HOURS NEEDED. 08-03 00:00: 00 Yes [id number] Jaden Ponce 1 CAP EVERY 8 HOURS NEEDED FOR COUGH 08-03 00:00: 00 09-30 00:00 :00 No 200 Jaden Ponce TAKE 2 TABLETS ON DAY 1 THEN TAKE 1 TABLET A DAY FOR 4 DAYS. 08-03 00:00: 00 09-30 00:00 :00 No 250 Jaden Ponce TAKE 5 ML EVERY 6 HOURS NEEDED FOR COUGH 08-03 00:00: 00 09-30 00:00 :00 No [id number] Jaden Ponce TAKE 1 TAB 3 TIMES A DAY NEEDED FOR NAUSEA 08-03 00:00: 00 09-30 00:00 :00 No 25 Jaden Ponce albuterol sulfate HFA 90 mcg/actuati on aerosol inhaler 08-01 00:00: 00 Yes mcg/act uation Jaden Ponce TAKE 1 TABLET BY MOUTH DAILY 3-04 00:00: 00 09-30 00:00 :00 No 50 Jaden Ponce oxycodone-a cetaminophe n 10 mg-325 mg tablet 3-01 00:00: 00 Yes mg Jaden Ponce gabapentin 800 mg tablet 2-21 00:00: 00 Yes mg Jaden Ponce INHALE 2 PUFFS BY MOUTH EVERY 4 TO 6 HOURS NEEDED. 2- 00:00: 00 09-30 00:00 :00 No [id number] Jaden Ponce losartan 50 mg tablet 06-18 [...] 00 09-30 00:00 :00 No 25 Jaden Pnoce TAKE 5 ML EVERY 6 HOURS NEEDED FOR COUGH 06-18 00:00: 00 09-30 00:00 :00 No [id number] Jaden Pocne AMITRIPTYLI NE HYDROCHLORI DE 50 MG TABS 06-17 00:00: 00 Yes Jaden Ponce CIPROFLOXAC IN HYDROCHLORI DE 500 MG TABS 06-17 00:00: 00 Yes Jaden Ponce PROMETHAZIN E HYDROCHLORI DE 25 MG TABS 06-17 00:00: 00 Yes Jaden Ponce GABAPENTIN 800 MG TABS 06-17 00:00: 00 Yes Jaden Ponce METOCLOPRAM JAVIER HCL 5 MG TABS 1-23 00:00: 00 Yes Jaden Ponce PREDNISONE 20 [...] 2022-05 00:00: 00 09-30 00:00 :00 No [id number] Jaden Ponce PANTOPRAZOL E SOD DR 40 MG 2022-05 00:00: 00 Yes Jaden Ponce LOSARTAN POTASSIUM 50 MG 2022-05 00:00: 00 Yes Jaden Ponce 1 CAP EVERY 8 HOURS NEEDED FOR COUGH 2022-05 0 00:00: 00 09-30 00:00 :00 No 200 Jaden Ponce INHALE 1 PUFF TWICE DAILY. 2022-05 0- 00:00: 00 09-30 00:00 :00 No [id number] 5 Jaden Ponce TAKE 5 ML EVERY 4 TO 6 HOURS NEEDED FOR COUGH. 2022-05 0- 00:00: 00 09-30 00:00 :00 No [id number] Jaden Ponce TAKE 2 TABS DAILY THE [...] TRELEGY ELLIPTA 200-62.5-25 01-15 00:00: 00 Yes [id number] Jaden Ponce TAKE 2 TABS DAILY THE FIRST 5 DAYS,THEN 1 TAB DAILY THE LAST 5 DAYS 01-15 00:00: 00 09-30 00:00 :00 No 20 Jaden Ponce USE 1 SPRAY IN EACH NOSTRIL TWICE DAILY. 01-15 00:00: 00 09-30 00:00 :00 No [id number] Jaden Ponce TAKE 1 TABLET TWICE DAILY WITH FOOD. 01-15 00:00: 00 09-30 00:00 :00 No [id number] Jaden Ponce INSTILL 2 DROPS INTO BOTH EYES ONCE DAILY. 01-15 00:00: 00 09-30 00:00 :00 No 2 Jaden Ponce TAKE 5 ML EVERY 4 TO 6 HOURS NEEDED FOR COUGH. 01-15 00:00: 00 09-30 00:00 :00 No [id number] Jaden Ponce TAKE 1 TABLET BY MOUTH [...] 12-19 00:00: 00 09-30 00:00 :00 No [id number] Jaden Ponce INHALE 2 PUFFS EVERY 4 TO 6 HOURS NEEDED. 12-19 00:00: 00 09-30 00:00 :00 No [id number] Jaden Ponce TAKE 1 TABLET BY MOUTH [...] 10-30 00:00: 00 09-30 00:00 :00 No [id number] Jaden Ponce TAKE 1 TABLET BY MOUTH [...] 10-07 21:45: 00 10-07 20:33 :00 No [id number] 40mg [facility] TRAMADOL HCL 50 MG 10-07 00:00: 00 Yes Jaden Ponce traMADoL 50 mg tablet 10-07 00:00: 00 10-15 04:59 :00 No [id number] 50mg Take 1 tablet by mouth every 6 (six) hours as needed for Pain (scale 4-6) for up to 7 days. Indication s: acute pain [facility] TAKE 1 TABLET BY MOUTH EVERY DAY 10-01 00:00: 00 Yes Jaden Ponce HYDROCODONE -ACETAMIN 5-325 MG 10-01 00:00: 00 Yes Jaden Ponce amLODIPine 5 mg tablet 10-01 00:00: 00 Yes 5mg Take 1 tablet by mouth in the morning. [facility] NEOMYCIN-PO LYMYXIN-HC EAR SOLN 08-21 00:00: [...] 08-21 00:00: 00 09-30 00:00 :00 No [id number] Jaden Ponce INSTILL 3 DROPS IN BOTH EARS 3-4 TIMES DAILY. 08-21 00:00: 00 09-30 00:00 :00 No Jaden Ponce INHALE 2 PUFFS TWICE DAILY. 08-21 00:00: 00 09-30 00:00 :00 No [id number] Jaden Ponce TAKE 1 TABLET BY MOUTH AT BEDTIME 08-21 00:00: 00 09-30 00:00 :00 No 10 Jaden Serafin Ponce INHALE 2 PUFFS EVERY 4 TO 6 HOURS NEEDED. 08-21 00:00: 00 09-30 00:00 :00 No [id number] Jaden Serafin Ponce pantoprazol e 40 mg EC tablet 08-20 00:00: 00 Yes Landy corrigan [facility] PREDNISONE 20 MG 08-15 00:00: 00 Yes 20 Jaden Serafin Ponce ALBUTEROL HFA 90 MCG INHALER 08-15 00:00: 00 Yes 90 Jaden Serafin Ponce INHALE 2 PUFFS EVERY 4 TO 6 HOURS NEEDED. 08-15 00:00: 00 09-30 00:00 :00 No [id number] Jaden Serafin Ponce TAKE 5 ML EVERY 4 TO 6 HOURS NEEDED FOR COUGH. 08-15 00:00: 00 09-30 00:00 :00 No [id number] Jaden Serafin Ponce 1 CAP EVERY 8 HOURS NEEDED FOR COUGH 08-15 00:00: 00 09-30 00:00 :00 No 200 Jaden Serafin Ponce INHALE 2 PUFFS TWICE DAILY. 08-15 00:00: 00 09-30 00:00 :00 No [id number] Jaden Serafin Ponce TAKE 1 TABLET BY MOUTH AT BEDTIME 08-15 00:00: 00 09-30 00:00 :00 No 10 Jaden Serafin Ponce TAKE 1 TABLET BY MOUTH DAILY 3 00:00: 00 09-30 00:00 :00 No 40 Jaden Serafin Ponce TAKE 1 TABLET BY MOUTH AT BEDTIME 3- 00:00: 00 09-30 00:00 :00 No 10 Jaden Serafin Ponce TAKE 1 TABLET BY MOUTH DAILY 3-10 00:00: 00 09-30 00:00 :00 No 10 Jaden Serafin Ponce GABAPENTIN 800 MG 2-16 00:00: 00 Yes 800 Jaden Ponce TAKE 1 TABLET DAILY. 2-16 00:00: 00 09-30 00:00 :00 No 160 [...] - 00:00: 00 09-30 00:00 :00 No [id number] Jaden Ponce TAKE 1 TABLET BY MOUTH [...] 2021-05 00:00: 00 09-30 00:00 :00 No [id number] Jaden Ponce TAKE 1 TABLET BY MOUTH EVERY DAY FOR BACK PAIN 2021-05 00:00: 00 Yes Jaden Ponce METHYLPREDN ISOLONE 4 MG DOSEPK 2021-05 2- 00:00: 00 Yes Jaden Ponce PREDNISONE 20 MG 2021-05- 00:00: 00 Yes Jaden Ponce AZITHROMYCI N 250 MG 2021-05 00:00: 00 Yes Jaden Ponce INHALE 2 PUFFS TWICE DAILY. 2021-05 00:00: 00 09-30 00:00 :00 No [id number] Jaden Ponce Dose Unknown 2021-05 2- 00:00: 00 Yes 20 Jaden Ponce PREGABALIN 300 MG CAPSULE</Te xt> <Code> <Value>[id number]</Va lue> <CodingSyst em>NDC</Cod ingSystem> </Code> 2021-05 2- 00:00: 00 Yes 300 Jaden Ponce Dose Unknown 2021-05 2- 00:00: 00 Yes Jaden Ponce Dose Unknown 2021-05 2- 00:00: 00 Yes Jaden Ponce Dose Unknown 2021-05 2- 00:00: 00 Yes Jaden Ponce Dose Unknown 2021-05 2- 00:00: 00 Yes Jaden Ponce PROAIR HFA 90 MCG INHALER</Te xt> <Code> <Value>[id number] [id number]</Va lue> <CodingSyst em>NDC</Cod ingSystem> </Code> 2021-05 2- 00:00: 00 Yes Jaden Ponce Dose Unknown 2021-05 2- 00:00: 00 Yes Jaden Ponce AMOX-CLAV 875-125 MG TABLET</Nicolás t> <Code> <Value>0009 [id number]</Va lue> <CodingSyst em>NDC</Cod ingSystem> </Code&gt 2021-05 2- 00:00: 00 Yes Jaden Ponce HYDROCHLORO THIAZIDE 25 MG TAB</Text> <Code> <Value>0017 [id number]</Va lue> <CodingSyst em>NDC</Cod ingSystem> </Code& 2021-05 2- 00:00: 00 Yes 25 Jaden Ponce Dose Unknown 2021-05 2- 00:00: 00 Yes Jaden Ponce PREGABALIN 150 MG CAPSULE</Te xt> <Code> <Value>0022 [id number]</Va lue> <CodingSyst em>NDC</Cod ingSystem> </Code> 2021-05 2- 00:00: 00 Yes 150 Jaden Ponce TAKE 1 CAPSULE BY MOUTH THREE TIMES DAILY 2021-05 2-12 00:00: 00 Yes 300 Jaden Ponce Dose Unknown 2021-05 2- 00:00: 00 Yes Jaden Ponce Dose Unknown 2021-05 2- 00:00: 00 Yes Jaden Ponce Dose Unknown 2021-05 2-12 00:00: 00 No 20 TAKE 2 TABLETS ON DAY 1 THEN TAKE 1 TABLET A DAY FOR 4 DAYS. 2021-05 2- 00:00: 00 No 250 PREGABALIN 300 MG CAPSULE</Te xt> <Code> <Value>0022 [id number]</Va lue> <CodingSyst em>NDC</Cod ingSystem> </Code> 2021-05 2 00:00: 00 No 300 Dose Unknown 2021-05 2 00:00: 00 No Dose Unknown 2021-05 00:00: 00 No Dose Unknown 2021-05 00:00: 00 No Dose Unknown 2021-05 00:00: 00 No INHALE 1 PUFF TWICE DAILY. 2021-05 00:00: 00 No [id number] 5 INHALE 2 PUFFS EVERY 4 TO 6 HOURS NEEDED. 2021-05 00:00: 00 No [id number] PROAIR HFA 90 MCG INHALER</Te xt> <Code> <Value>2169 [id number]</Va lue> <CodingSyst em>NDC</Cod ingSystem> </Code> 2021-05 00:00: 00 No Dose Unknown 2021-05 00:00: 00 No AMOX-CLAV 875-125 MG TABLET</Nicolás t> <Code> <Value>0009 [id number]</Va lue> <CodingSyst em>NDC</Cod ingSystem> </Code&gt 2021-05 00:00: 00 No HYDROCHLORO THIAZIDE 25 MG TAB</Text> <Code> <Value>0017 [id number]</Va lue> <CodingSyst em>NDC</Cod ingSystem> </Code& 2021-05 00:00: 00 No 25 TAKE 1 TABLET AT BEDTIME. 2021-05- 00:00: 00 No 20 Dose Unknown 2021-05- 00:00: 00 No PREGABALIN 150 MG CAPSULE</Te xt> <Code> <Value>0022 [id number]</Va lue> <CodingSyst em>NDC</Cod ingSystem> </Code> 2021-05 00:00: 00 No 150 TAKE 5 ML DAILY AT BEDTIME. 2021-05 2 00:00: 00 No [id number] TAKE 1 TABLET DAILY. 2021-05 00:00: 00 [...] 2021-05 00:00: 00 09-30 00:00 :00 No [id number] 5 Jaden Ponce INHALE 2 PUFFS EVERY 4 TO 6 HOURS NEEDED. 2021-05 00:00: 00 09-30 00:00 :00 No [id number] Jaden Ponce TAKE 1 TABLET AT BEDTIME. 2021-05 00:00: 00 09-30 00:00 :00 No 20 Jdaen Ponce TAKE 5 ML DAILY AT BEDTIME. 2021-05 00:00: 00 09-30 00:00 :00 No [id number] Jaden Ponce TAKE 1 TABLET DAILY. 2021-05 00:00: 00 09-30 00:00 :00 No 160 Jaden Ponce TAKE 1 TABLET 4 TIMES DAILY. 2021-05 00:00: 00 09-30 00:00 :00 No 800 Jaden Ponce INHALE 2 PUFFS TWICE DAILY. 2021-05 00:00: 00 09-30 00:00 :00 No [id number] Jaden Serafin Ponce TRELEGY ELLIPTA 200-62.5-25 2021-05 1 00:00: 00 Yes Jadenluna Pnoce AZITHROMYCI N 250 MG 2021-05 0 00:00: 00 Yes 250 Jadenluna Ponce TRELEGY ELLIPTA 200-62.5-25 2022-1 0-27 00:00: 00 Yes [id number] Jaden Ponce ATORVASTATI N 20 MG 2-1 0-12 00:00: 00 Yes 20 Jaden Ponce [...] MG CAPSULE 2022-0 9-19 00:00: 00 No Lyrica 150 mg capsule 2022-0 8-16 00:00: 00 Yes 1mg Jaden Ponce &lt 2022-0 8-16 00:00: 00 Yes 300 Jaden Ponce Dose Unknown 2022-0 8-16 00:00: 00 Yes 20 Jaden Ponce PREGABALIN 150 MG CAPSULE 2-0 8-16 00:00: 00 Yes 150 Jaden Ponce Lyrica 150 mg capsule 2022-0 8-16 00:00: [...] 1 TABLET BY MOUTH TWICE DAILY 2021-0 - 00:00: 00 No 875 Dose Unknown 2021-0 - 00:00: 00 No 250 &lt 2022-0 7-15 00:00: 00 No 300 pregabalin 300 mg capsule 2021-0 7- 00:00: 00 Yes 1mg Jaden Ponce &lt 2022-0 7- 00:00: 00 Yes 20 Jaden Ponce TAKE 1 TABLET BY MOUTH FOUR TIMES DAILY 2021-0 - 00:00: 00 Yes 600 Jaden Ponce Dose Unknown 2021-0 - 00:00: 00 Yes 250 Jaden Ponce pregabalin 300 mg capsule 2021-0 - 00:00: 00 No 1mg &lt 2-0 7- 00:00: 00 No 20 TAKE 1 TABLET BY MOUTH FOUR TIMES DAILY 2021-0 - 00:00: 00 No 600 &lt 2022-0 7- 00:00: 00 No 300 Dose Unknown 2021-0 - 00:00: 00 No 250 pregabalin 300 mg capsule 2021-0 - 00:00: 00 No 1mg &lt 2022-0 [...] 00:00: 00 Yes 1mg Jaden Ponce &lt 2-0 6-06 00:00: 00 Yes Jaden Ponce pregabalin [...] 00:00: 00 Yes Jaden Ponce Dose Unknown 2021-0 3-07 00:00: 00 No [...] 1-12 00:00: 00 Yes 12mcg/a ctuatio n aJden Ponce azithromyci n 250 mg tablet 1-12 [...] n Jaden Ponce pregabalin 300 mg capsule 2020-05 00:00: 00 Yes 1mg Jaden Ponce ProAir [...] 2020-05 0-05 00:00: 00 Yes 1mg Jaden Serafin Ponce prednisone 20 mg tablet 2020-05 0-05 [...] inhaler 8- 00:00: 00 Yes 12mcg/a ctuatio n Jaden Serafin Kris amoxicillin 875 mg-bertha de la cruz clavulanate 125 mg tablet 8- 00:00: 00 Yes 1mg Jaden Serafin Kris gabapentin 600 mg tablet 12-22 00:00: 00 Yes 1mg Jaden Ponce prednisone [...] 00 Yes 12mcg/a ctuatio n Jaden Ponce ProAir HFA 90 mcg/actuati on [...] mcg-100 mcg/actuati on solution for inhalation 0 - 00:00: 00 No 1mcg/ac tuation Advair Diskus 250 mcg-50 mcg/dose powder for inhalation 0 01-19 00:00: 00 No 1mcg/do se gabapentin 600 mg tablet 0 01-19 00:00: 00 No 1mg gabapentin 300 [...] 0 01-19 00:00: 00 No 3mg/3 mL gabapentin 600 mg tablet -14 00:00: 00 Yes 1mg Jaden Ponce gabapentin 600 mg tablet 0 -14 00:00: 00 No 1mg gabapentin 600 mg tablet 12-30 00:00: 00 No 1mg gabapentin 600 mg tablet -14 00:00: 00 No 1mg gabapentin 300 mg capsule 0 - 00:00: 00 Yes 1mg Jaden Ponce [...] Source Prevnar 20 Prevnar 20 2022-05-29 00:00:00 Completed Jaden Ponce SHINGRIX VACCINE SHINGRIX VACCINE 2022-05-29 00:00:00 Samanta Ponce Td(adult) unspecified fo Td(adult) unspecified fo 2017-01-21 00:00:00 Smaanta Ponce Influenza, seasonal, inj Influenza, seasonal, inj 2015-08-17 00:00:00 Completed Jaden Ponce Tdap Tdap 2014-01-04 00:00:00 Samanta Ponce Vital Signs Vital Name Observation Time Observation Value Comments S ilir Systolic blood pressure 2022-10-07 20:05:00 133 mm[Hg] [facility] Diastolic blood pressure 2022-10-07 20:05:00 70 mm[Hg] [facility] Heart rate 2022-10-07 20:05:00 96 /min [facility] Body height 2022-10-07 20:05:00 152.4 cm [facility] Body weight 2022-10-07 20:05:00 69.854 kg [facility] BMI 2022-10-07 20:05:00 30.08 kg/m2 [facility] BP Systolic 2024-02-25 10:57:00 133 mm[Hg] Step hen F Kris BP Diastolic 2024-02-25 10:57:00 78 mm[Hg] Manny phen F Krsi Weight Measured 2024-02-25 10:57:00 129.80 pounds Jaden [...] F Kris Weight Measured 2023-11-13 17:12:00 Jaden Serafin Ponce Height Measured 2023-11-13 17:12:00 Jaden F Kris [...] Rate 2022-02-25 11:08:00 95.00 /min [place] en Serafin Ponce Respiratory Rate 2022-02-25 11:08:00 Jaden Serafin Ponec BP Systolic 2021-11-30 11:14:00 137 mm[Hg] Step hen Serafin Ponce BP Diastolic 2021-11-30 11:14:00 78 mm[Hg] Manny Ponce Weight Measured 2021-11-30 11:14:00 144.20 pounds Jaden Ponce Height Measured 2021-11-30 11:14:00 60.00 inches Jadenluna Ponce Body Temperature 2021-11-30 11:14:00 98.00 degrees [...] EXTERNAL PROVIDER RECORDS 2022-10-21 05:01:00 Doctor Unassigned, [place] [facility] RADIOLOGY DOCUMENTATION 2022-10-11 05:01:00 Doct or Unassigned, [place] [facility] MEDICAL RELEASE/CLEARANCE FORMS 2022-10-09 05:01:00 Doctor Unassigned, [place] [facility] Plan of Care Planned Activity Planned Date Details Comments Source Goal Plan of Care Note [code = 95233-2] Goal Plan of Care Note [code = 20587-8] Goal Plan of Care Note [code = 94092-2] Goal Plan of Care Note [code = 57070-8] Goal Plan of Care Note [code = 28008-0] Goal Plan of Care Note [code = 94704-8] Goal Plan of Care Note [code = 62621-0] Goal Plan of Care Note [code = 37328-4] Goal Plan of Care Note [code = 77232-8] Goal Plan of Care Note [code = 82596-0] Goal Plan of Care Note [code = 26290-0] Goal Plan of Care Note [code = 90800-2] Goal Plan of Care Note [code = 52765-4] Goal Plan of Care Note [code = 91016-7] Goal Plan of Care Note [code = 53324-1] Goal Plan of Care Note [code = 58990-4] Goal Plan of Care Note [code = 74784-2] Goal Plan of Care Note [code = 73008-2] Goal Plan of Care Note [code = 48340-7] Goal Plan of Care Note [code = 43062-3] Goal Plan of Care Note [code = 52975-5] Goal Plan of Care Note [code = 93447-3] Goal Plan of Care Note [code = 04570-2] Goal Plan of Care Note [code = 70568-9] Goal Plan of Care Note [code = 20933-9] Goal Plan of Care Note [code = 74163-5] Goal Plan of Care Note [code = 22973-7] Goal Plan of Care Note [code = 01401-6] Goal Plan of Care Note [code = 41053-3] Goal Plan of Care Note [code = 14874-4] Goal Plan of Care Note [code = 21514-0] Goal Plan of Care Note [code = 85149-9] Goal Plan of Care Note [code = 99334-9] Goal Plan of Care Note [code = 71171-3] Goal Plan of Care Note [code = 49123-3] Goal Plan of Care Note [code = 07437-0] Goal Plan of Care Note [code = 16701-9] Goal Plan of Care Note [code = 56583-1] Goal Plan of Care Note [code = 63199-5] Goal Plan of Care Note [code = 70256-0] Goal Plan of Care Note [code = 86594-0] Goal Plan of Care Note [code = 69733-7] Goal Plan of Care Note [code = 04106-9] Goal Plan of Care Note [code = 35095-3] Goal Plan of Care Note [code = 88853-7] Goal Plan of Care Note [code = 94234-3] Goal Plan of Care Note [code = 73322-0] Goal Plan of Care Note [code = 16683-3] Goal Plan of Care Note [code = 04281-7] Goal Plan of Care Note [code = 55114-4] Goal Plan of Care Note [code = 67742-8] Goal Plan of Care Note [code = 43715-7] Goal Plan of Care Note [code = 62529-1] Goal Plan of Care Note [code = 21954-5] Goal Plan of Care Note [code = 70888-8] Goal Plan of Care Note [code = 09437-5] Goal Plan of Care Note [code = 68094-6] Goal Plan of Care Note [code = 07476-8] Goal Plan of Care Note [code = 35612-8] Goal Plan of Care Note [code = 95125-2] Goal Plan of Care Note [code = 61075-8] Goal Plan of Care Note [code = 81501-1] Goal Plan of Care Note [code = 00496-9] Goal Plan of Care Note [code = 39045-6] Goal Plan of Care Note [code = 81741-1] Goal Plan of Care Note [code = 41722-4] Goal Plan of Care Note [code = 13098-0] Goal Plan of Care Note [code = 12271-7] Goal Plan of Care Note [code = 23187-1] Goal Plan of Care Note [code = 21505-7] Goal Plan of Care Note [code = 68995-9] Goal Plan of Care Note [code = 69592-4] Goal Plan of Care Note [code = 30376-9] Goal Plan of Care Note [code = 98324-0] Goal Plan of Care Note [code = 34074-2] Goal Plan of Care Note [code = 74671-6] Goal Plan of Care Note [code = 89772-4] Goal Plan of Care Note [code = 57626-8] Goal Plan of Care Note [code = 83935-8] Goal Plan of Care Note [code = 11756-5] Goal Plan of Care Note [code = 35437-1] Goal Plan of Care Note [code = 61965-4] Goal Plan of Care Note [code = 82807-5] Encounters Start Date/Time End Date/Time Encounter Type Admission Type Attending [facility] Care Department Encounter ID Source 2024-07-12 09:48:45 2024-07-12 09:48:45 Outpatient [facility] [id number] Jaden F Kris 2024-04-16 11:56:43 2024-04-16 11:56:43 Outpatient [facility] [id number] Jaden Betancourt Kris 2024-03-16 16:43:16 2024-03-16 16:43:16 Outpatient [facility] [id number] Jaden F Kris 2024-02-25 10:41:50 2024-02-25 10:41:50 Outpatient [facility] [id number] Jaden Betancourt Kris 2024-02-25 00:00:00 2024-02-25 00:00:00 Outpatient Visit [facility] [id number] Jaden Betancourt Kris 2024-02-06 13:53:09 2024-02-06 13:53:09 Outpatient [facility] [id number] Jaden Betancourt Kris 2024-02-06 00:00:00 2024-02-06 00:00:00 Outpatient Visit [facility] [id number] Jaden Betancourt Kris 2024-01-15 15:58:11 2024-01-15 15:58:11 Outpatient [facility] [id number] Jaden [place] 2023-12-15 08:41:47 2023-12-15 08:41:47 Outpatient [facility] [id number] Jaden Betancourt [place] 2023-11-13 00:00:00 2023-11-13 00:00:00 Outpatient Visit [facility] [id number] Jaden Betancourt [place] 2023-11-10 14:10:07 2023-11-10 14:10:07 Outpatient [facility] SFA [id number] Jaden Bet[place] 2023-10-14 15:51:09 2023-10-14 15:51:09 Outpatient [facility] SFA [id number] Jaden Betancourt [place] 2023-09-15 16:15:18 2023-09-15 16:15:18 Outpatient [facility] SFA [id number] Jaden Betancourt Kris 2023-08-26 15:52:22 2023-08-26 15:52:22 Outpatient [facility] SFA [id number] Jaden Betancourt [place] 2023-08-14 09:36:17 2023-08-14 09:36:17 Outpatient [facility] SFA [id number] Jaden Betancourt [place] 2023-07-14 14:28:32 2023-07-14 14:28:32 Outpatient [facility] SFA [id number] Jaden Betancourt [place] 2023-06-18 10:02:18 2023-06-18 10:02:18 Outpatient [facility] SFA [id number] Jaden Betancourt [place] 2023-06-17 17:18:38 2023-06-17 17:18:38 Outpatient [facility] SFA [id number] Jaden Betancourt Kris 2023-06-12 15:47:52 2023-06-12 15:47:52 Outpatient [facility] [id number] Jaden Ponce 2023-04-28 14:22:48 2023-04-28 14:22:48 Outpatient [facility] [id number] Jaden Ponce 2023-03-19 16:04:06 2023-03-19 16:04:06 Outpatient [facility] [id number] Jaden Betancourt Kris 2023-02-27 13:54:38 2023-02-27 13:54:38 Outpatient [facility] [id number] Jaden Betancourt Kris 2023-02-18 14:41:08 2023-02-18 14:41:08 Outpatient [facility] [id number] Jaden Betanc[place] 2023-01-30 17:52:20 2023-01-30 17:52:20 Outpatient [facility] [id number] Jaden Betancourt [place] 2023-01-14 12:11:29 2023-01-14 12:11:29 Outpatient [facility] [id number] Jaden Betancourt [place] 2022-12-11 17:36:37 2022-12-11 17:36:37 Outpatient [facility] [id number] Jaden Betancourt [place] 2022-10-21 00:00:00 2022-10-21 00:00:00 Orders Only Doctor Unassigned, [place] [address]840.114 350.1.13.10 4.2.7.2.686 [id number] 009 [id number] [facility] 2022-10-15 00:00:00 2022-10-15 00:00:00 Telephone Maegan Head [facility] 1..840.114 350.1.13.10 4.2.7.2.686 [id number] [facility] 2022-10-11 00:00:00 2022-10-11 00:00:00 Orders Only Doctor Unassigned, [place] [address].840.114 350.1.13.10 4.2.7.2.686 [id number] [facility] 2022-10-11 00:00:00 2022-10-11 00:00:00 Telephone Maegan Head [facility] 1.840.114 350.1.13.10 4.2.7.2.686 [id number] 198 [id number] [facility] 2022-10-09 00:00:00 2022-10-09 00:00:00 Orders Only Doctor Unassigned, [place] [facility] 1.0.114 350.1.13.10 4.2.7.2.686 [id number] [facility] 2022-10-09 00:00:00 2022-10-09 00:00:00 Telephone Maegan Head [facility] 1.840.114 350.1.13.10 4.2.7.2.686 [id number] 198 [id number] [facility] 2022-10-07 14:30:00 2022-10-07 16:47:40 Outpatient [facility] [id number] [facility] 2022-10-07 14:30:00 2022-10-07 16:47:40 Office Visit Maegan Head [facility] 1.840.114 350.1.13.10 4.2.7.2.686 [id number] 198 [id number] [facility] 2022-10-07 00:00:00 2022-10-07 00:00:00 Telephone Maegan Head [facility] 1.840.114 350.1.13.10 4.2.7.2.686 [id number] 198 [id number] [facility] 2022-10-02 00:00:00 2022-10-02 00:00:00 Telephone [facility]egan Head [facility] 1.2.840.114 350.1.13.10 4.2.7.2.686 [id number] 198 [id number] [facility] 2022-08-20 13:43:24 2022-08-20 13:43:24 Outpatient [facility] [id number] Jaden Ponce 2022-05-29 14:07:16 2022-05-29 14:07:16 Outpatient [facility] 0111 Jaden Ponce 2022-04-30 15:19:29 2022-04-30 15:19:29 Outpatient [facility] SFA 1213 Jaden Ponce 2022-04-30 00:00:00 2022-04-30 00:00:00 Outpatient Visit [id number] -[id number]-[id number]-[id number]-a [id number] 2022-03-27 00:00:00 2022-03-27 00:00:00 Outpatient DMG DMG [id number] [facility] 2022-03-26 09:54:48 2022-03-26 09:54:48 Outpatient SFA SFA 1108 Jaden Ponce 2022-03-26 00:00:00 2022-03-26 00:00:00 Outpatient Visit [id number] -[id number]-[id number] 2022-02-25 11:04:30 2022-02-25 11:04:30 Outpatient SFA SFA [id number] 1010 Jaden Ponce 2022-02-25 00:00:00 2022-02-25 00:00:00 Outpatient Visit [id number] [id number] 2021-11-30 00:00:00 2021-11-30 00:00:00 Outpatient Visit [id number]- fef1-4fc2 -[id number]-ww1 [id number] ef1-4fc2-a [id number] e05aeb 2021-11-27 04:42:00 2021-11-27 04:42:00 [facility]patient [facility] [id number] 0712 Qian arrington [facility] Program Results Test Description Test Time Test Comments Results Result Co mments Source TSH, THIRD [id number] 07:15:39* Test Item Value Reference Range Interpretation Comme nts TSH, THIRD GENERATION (test code = 2821) 0.265 UIU/ML 0.400-4.100 L C-REACTIVE [id number] 05:45:48* Test Item Value Reference Range Interpretation Comme nts C-REACTIVE PROTEIN (test cod e = 3513) <0.3 MG/DL <0.5 COMPREHENSIVE METABOLIC [id number] 05:45:07* Test Item Value Reference Range Interpretation Comme nts GLUCOSE (test code = 2217) 178 MG/DL 70-99 H BUN (test code = 2208) 15 MG/DL 8-23 CREATININE (test code = 2214) 0.47 MG/DL 0.60-1.30 L eGFR (2020 CKD-EPI) (test code = 35836) 104 ML/MIN/1.73 >60 CALC BUN/CREAT (test code [...] 3.5-5.2 CALC GLOBULIN (test code = 0) 2.1 G/DL 1.9-3.7 CALC A/G RATIO (test code = 2233) 2.0 RATIO 1.0-2.6 BILIRUBIN, TOTAL (test code = 7) 0.3 MG/DL <=1.2 ALKALINE PHOSPHATASE (test code = 2203) 118 U/L 40-142 AST (test code = 8) 10 U/L 9-40 ALT (test code = 2219) 17 U/L 5-40 HEMOGLOBIN [id number] 04:57:52* Test Item Value Reference Range Interpretation Comme nts HEMOGLOBIN A1c (test code = 74232) 5.8 % 4.2-5.6 H TURKS AND [employer] GUIDELINES FOR HGB A1C: [...] CONSIDER ALTERNATE TESTING OR LABORATORY CONSULTATION. SEDIMENTATION [id number] 04:22:25* Test Item Value Reference Range Interpretation Comme nts SEDIMENTATION RATE (test cod e = 1017) 2 MM/HOUR 0-20 CBC W/AUTO DIFF WITH [id number] 02:36:55* Test Item Value Reference Range Interpretation [...] = 1065) 0.0 /100 WBC'S See_Comment [Automated [employer]] The system which generated this result [...] H ABS NUCLEATED RBCS (test code = 60525) 0.00 K/UL 0.00-0.11 HEMOGLOBIN [id number] 00:00:00* Test Item Value Reference Range Interpretation Comme nts HEMOGLOBIN A1c (test code = 01070) 5.8 % Jaden PonceCOMPREHENSIVE METABOLIC [id number] 00:00:00* Test Item Value Reference Range Interpretation Comme nts GLUCOSE (test code = 2217) 178 MG/DL BUN (test code = 2208) 15 MG/DL CREATININE (test code = 2214) 0.47 MG/DL eGFR (2020 CKD-EPI) (test code = 21846) 104 ML/MIN/1.73 CALC BUN/CREAT (test code = [...] = 2219) 17 U/L Jaden PonceTSH, THIRD [id number] 00:00:00* Test Item Value Reference Range Interpretation Comme adrián TSH, THIRD GENERATION (test code = 2821) 0.265 UIU/ML Jaden PonceSEDIMENTATION [id number] 00:00:00* Test Item Value Reference Range Interpretation Comme nts SEDIMENTATION RATE (test cod e = 1017) 2 MM/HOUR Jaden PonceC-REACTIVE [id number] 00:00:00* Test Item Value Reference Range Interpretation Comme nts C-REACTIVE PROTEIN (test cod e = 3513) <0.3 MG/DL Jaden PonceVITAMIN D, 25 [id number] 00:00:00* Test Item Value Reference Range Interpretation Comme adrián VITAMIN D, 25 OH (test code = 4958) 34 NG/ML Jaden PonceCBC W/AUTO [id number] 00:00:00* Test Item Value Reference Range Interpretation [...] ABS NUCLEATED RBCS (test cod e = 36677) 0.00 K/UL Jaden PonceHEMOGLOBIN [id number] 00:00:00* Test Item Value Reference Range Interpretation Comme nts HEMOGLOBIN A1c (test code = 79587) 5.8 % Jaden PonceCOMPREHENSIVE METABOLIC [id number] 00:00:00* Test Item Value Reference Range Interpretation Comme nts GLUCOSE (test code = 2217) 178 MG/DL BUN (test code = 2208) 15 MG/DL CREATININE (test code = 2214) 0.47 MG/DL eGFR (2020 CKD-EPI) (test code = 75693) 104 ML/MIN/1.73 CALC BUN/CREAT (test code = [...] 2219) 17 U/L Jaden F AustinTSH, THIRD [id number] 00:00:00* Test Item Value Reference Range Interpretation Comme nts TSH, THIRD GENERATION (test code = 2821) 0.265 UIU/ML Jaden PonceSEDIMENTATION [id number] 00:00:00* Test Item Value Reference Range Interpretation Comme nts SEDIMENTATION RATE (test cod e = 1017) 2 MM/HOUR Jaden PonceC-REACTIVE [id number] 00:00:00* Test Item Value Reference Range Interpretation Comme nts C-REACTIVE PROTEIN (test cod e = 3513) <0.3 MG/DL Jaden PonceVITAMIN D, 25 [id number] 00:00:00* Test Item Value Reference Range Interpretation Comme nts VITAMIN D, 25 OH (test code = 4958) 34 NG/ML Jaden PonceCBC W/AUTO [id number] 00:00:00* Test Item Value Reference Range Interpretation [...] ABS NUCLEATED RBCS (test cod e = 51188) 0.00 K/UL Jaden PonceHEMOGLOBIN [id number] 00:00:00* Test Item Value Reference Range Interpretation Comme adrián HEMOGLOBIN A1c (test code = 91938) 5.8 % Jaden PonceCOMPREHENSIVE METABOLIC [id number] 00:00:00* Test Item Value Reference Range Interpretation Comme nts GLUCOSE (test code = 2217) 178 MG/DL BUN (test code = 2208) 15 MG/DL CREATININE (test code = 2214) 0.47 MG/DL eGFR (2020 CKD-EPI) (test code = 64241) 104 ML/MIN/1.73 CALC BUN/CREAT (test code = [...] = 2219) 17 U/L Jaden PonceTSH, THIRD [id number] 00:00:00* Test Item Value Reference Range Interpretation Comme adrián TSH, THIRD GENERATION (test code = 2821) 0.265 UIU/ML Jaden PonceSEDIMENTATION [id number] 00:00:00* Test Item Value Reference Range Interpretation Comme nts SEDIMENTATION RATE (test cod e = 1017) 2 MM/HOUR Jaden PonceC-REACTIVE [id number] 00:00:00* Test Item Value Reference Range Interpretation Comme nts C-REACTIVE PROTEIN (test cod e = 3513) <0.3 MG/DL Jaden PonceVITAMIN D, 25 [id number] 00:00:00* Test Item Value Reference Range Interpretation Comme nts VITAMIN D, 25 OH (test code = 4958) 34 NG/ML Jaden PonceCBC W/AUTO [id number] 00:00:00* Test Item Value Reference Range Interpretation [...] ABS NUCLEATED RBCS (test cod e = 61568) 0.00 K/UL Jaden PonceLIPID [id number] 06:45:40* Test Item Value Reference Range Interpretation [...] SPECIMENS. FOR MOREINFORMATION, SEE CLIENT ANNOUNCEMENT AT [email or web address] RISK RATIO LDL/HDL (test code = 223) 1.58 RATIO <3.22 COMPREHENSIVE METABOLIC [id number] 06:45:40* Test Item Value Reference Range Interpretation Comme nts GLUCOSE (test code = 2216) 185 MG/DL 70-99 H BUN (test code = 2207) 10 MG/DL 8-23 CREATININE (test code = 2213) 0.55 MG/DL 0.60-1.30 L eGFR (2020 CKD-EPI) (test code = 52551) 101 ML/MIN/1.73 >60 CALC BUN/CREAT (test code [...] (test code = 2219) 17 U/L 5-40 [facility] has impo rtant pathology staff changes effective 07/17/2022. New pathology staff will provide uninterrupted, excellent patient care and clinical consultation. See URL: [email or web address]. UNLESS OTHERWISE INDICATED, ALL TESTING PERFORMED AT [facility] [address] [place] [address] [employer]: JOEY SILVA M.D. [facility] NUMBER [id number] [place]. [id number] HEMOGLOBIN [id number] 03:45:25* Test Item Value Reference Range Interpretation Comme nts HEMOGLOBIN A1c (test code = 04004) 6.1 % 4.2-5.6 H TURKS AND [employer] GUIDELINES FOR HGB A1C: [...] OR LABORATORY CONSULTATION. CBC W/AUTO DIFF WITH [id number] 02:39:50* Test Item Value Reference Range Interpretation [...] = 1065) 0.0 /100 WBC'S See_Comment [Automated [employer]] The system which generated this result [...] H ABS NUCLEATED RBCS (test code = 15374) 0.00 K/UL 0.00-0.11 HEMOGLOBIN [id number] 00:00:00* Test Item Value Reference Range Interpretation Comme nts HEMOGLOBIN A1c (test code = 17756) 6.1 % Jaden Betancourt AustinLIPID [id number] 00:00:00* Test Item Value Reference Range Interpretation Comme nts CHOLESTEROL (test code = 2210) 219 MG/DL TRIGLYCERIDES (test code = 2232) 85 MG/DL HDL CHOLESTEROL (test code = 2220) 78 MG/DL CALC LDL CHOL (test code = 2237) 123 MG/DL RISK RATIO LDL/HDL (test cod e = 2238) 1.58 RATIO Jaden Betancourt [place] MillCOMPREHENSIVE METABOLIC [id number] 00:00:00* Test Item Value Reference Range Interpretation Comme nts GLUCOSE (test code = 2217) 185 MG/DL BUN (test code = 2208) 10 MG/DL CREATININE (test code = 2214) 0.55 MG/DL eGFR (2020 CKD-EPI) (test code = 60891) 101 ML/MIN/1.73 CALC BUN/CREAT (test code = [...] code = 2219) 17 U/L [facility] [id number] 00:00:00* Test Item Value Reference Range Interpretation [...] ABS NUCLEATED RBCS (test cod e = 13847) 0.00 K/UL Jaden PonceHEMOGLOBIN [id number] 00:00:00* Test Item Value Reference Range Interpretation Comme nts HEMOGLOBIN A1c (test code = 98274) 6.1 % Jaden PonceLIPID [id number] 00:00:00* Test Item Value Reference Range Interpretation Comme nts CHOLESTEROL (test code = 2210) 219 MG/DL TRIGLYCERIDES (test code = 2232) 85 MG/DL HDL CHOLESTEROL (test code = 2220) 78 MG/DL CALC LDL CHOL (test code = 2237) 123 MG/DL RISK RATIO LDL/HDL (test cod e = 2238) 1.58 RATIO Jaden PonceCOMPREHENSIVE METABOLIC [id number] 00:00:00* Test Item Value Reference Range Interpretation Comme nts GLUCOSE (test code = 2217) 185 MG/DL BUN (test code = 2208) 10 MG/DL CREATININE (test code = 2214) 0.55 MG/DL eGFR (2020 CKD-EPI) (test code = 96930) 101 ML/MIN/1.73 CALC BUN/CREAT (test code = [...] = 2219) 17 U/L Jaden PonceCBC W/AUTO [id number] 00:00:00* Test Item Value Reference Range Interpretation [...] ABS NUCLEATED RBCS (test cod e = 69512) 0.00 K/UL Jaden PonceHEMOGLOBIN [id number] 00:00:00* Test Item Value Reference Range Interpretation Comme nts HEMOGLOBIN A1c (test code = 95609) 6.1 % Jaden PonceLIPID [id number] 00:00:00* Test Item Value Reference Range Interpretation Comme nts CHOLESTEROL (test code = 2210) 219 MG/DL TRIGLYCERIDES (test code = 2232) 85 MG/DL HDL CHOLESTEROL (test code = 2220) 78 MG/DL CALC LDL CHOL (test code = 2237) 123 MG/DL RISK RATIO LDL/HDL (test cod e = 2238) 1.58 RATIO Jaden PonceCOMPREHENSIVE METABOLIC [id number] 00:00:00* Test Item Value Reference Range Interpretation Comme nts GLUCOSE (test code = 2217) 185 MG/DL BUN (test code = 2208) 10 MG/DL CREATININE (test code = 2214) 0.55 MG/DL eGFR (2020 CKD-EPI) (test code = 39793) 101 ML/MIN/1.73 CALC BUN/CREAT (test code = [...] code = 2219) 17 U/L Jaden Betancourt [facility] W/AUTO [id number] 00:00:00* Test Item Value Reference Range Interpretation [...] ABS NUCLEATED RBCS (test cod e = 58613) 0.00 K/UL Jaden PonceOCCULT BLD,FECAL,IMMUNOASSAY [id number] 15:52:05* Test Item Value Reference Range Interpretation Comme nts OCCULT BLD, FECAL (test code = 60683) NEGATIVE NEGATIVE [facility] has important pathology staff changes effective 07/17/2022. New pathology staff will provide uninterrupted, excellent patient care and clinical consultation. See URL: [email or web address]. UNLESS OTHERWISE INDICATED, ALL TESTING PERFORMED AT [facility] [address] [place] [address] CLIA: [id number], CAP: [id number] OCCULT BLD,FECAL,IMMUNOASSAY [id number] 00:00:00* Test Item Value Reference Range Interpretation Comme nts OCCULT BLD, FECAL (test code = 29850) NEGATIVE Jaden Betancourt AustinOCCULT BLD,FECAL,IMMUNOASSAY [facility] [id number] 00:00:00* Test Item Value Reference Range Interpretation Comme nts OCCULT BLD, FECAL (test code = 55248) NEGATIVE Jaden Betancourt AustinOCCULT BLD,FECAL,IMMUNOASSAY [facility] [id number] 00:00:00* Test Item Value Reference Range Interpretation Comme nts OCCULT BLD, FECAL (test code = 12310) NEGATIVE Jaden ConleyH, THIRD [id number] 06:49:25* Test Item Value Reference Range Interpretation Comme nts TSH, THIRD GENERATION (test code = 2821) 1.600 UIU/ML 0.400-4.100 [id number] 06:45:12* Test Item Value Reference Range Interpretation Comme nts NT-proBNP (test code = 28865) <50 PG/ML SEE BELOW If NT-ProBNP is less than 300 PG/ML, heart failure is unlikely for allages. Age.................Heart Failure Likely <50 Years...........>=450 PG/ML 50-75 Years.........>=900 PG/ML > 75 Years..........>=1800 PG/ML Methodology: [employer]chem[employer]umines[employer] Immunoassay UNLESS OTHERWISE INDICATED, ALL TESTING PERFORMED [facility]ITAL[facility] [employer] [employer] [address] [place] [address] [employer]INTER AIR[employer]: ELIAS ESPANA M.D. [place] NUMBER [id number] [place]. [id number] COMPREHENSIVE METABOLIC [id number] 04:56:47* Test Item Value Reference Range Interpretation Comme nts GLUCOSE (test code = 2217) 137 MG/DL 70-99 H BUN (test code = 220) 12 MG/DL 8-23 CREATININE (test code = 221) 0.60 MG/DL 0.60-1.30 eGFR (2020 CKD-EPI) (test code = 28453) 99 ML/MIN/1.73 >60 CALC BUN/CREAT (test code [...] code = 2219) 11 U/L 5-40 LIPID [id number] 04:56:47* Test Item Value Reference Range Interpretation [...] SPECIMENS. FOR MOREINFORMATION, SEE CLIENT ANNOUNCEMENT AT [email or web address] RISK RATIO LDL/HDL (test code = 2238) 2.59 RATIO <3.22 HEMOGLOBIN [id number] 04:00:46* Test Item Value Reference Range Interpretation Comme nts HEMOGLOBIN A1c (test code = 44310) 5.9 % 4.2-5.6 H CBC W/AUTO DIFF WITH [id number] 02:37:32* Test Item Value Reference Range Interpretation [...] 0.00-0.10 ABS NUCLEATED RBCS (test code = 30442) 0.00 K/UL 0.00-0.11 CBC W/AUTO [id number] 00:00:00* Test Item Value Reference Range Interpretation [...] ABS NUCLEATED RBCS (test cod e = 24191) 0.00 K/UL Jaden PonceCOMPREHENSIVE METABOLIC [id number] 00:00:00* Test Item Value Reference Range Interpretation Comme nts GLUCOSE (test code = 2217) 137 MG/DL BUN (test code = 2208) 12 MG/DL CREATININE (test code = 2214) 0.60 MG/DL eGFR (2020 CKD-EPI) (test co de = 33719) 99 ML/MIN/1.73 CALC BUN/CREAT (test code = [...] code = 2219) 11 U/L Jaden PonceLIPID [id number] 00:00:00* Test Item Value Reference Range Interpretation Comme nts CHOLESTEROL (test code = 2210) 236 MG/DL TRIGLYCERIDES (test code = 2232) 274 MG/DL HDL CHOLESTEROL (test code = 2220) 54 MG/DL CALC LDL CHOL (test code = 2237) 140 MG/DL RISK RATIO LDL/HDL (test cod e = 2238) 2.59 RATIO Jaden Betancourt KrisTSH, THIRD [id number] 00:00:00* Test Item Value Reference Range Interpretation Comme nts TSH, THIRD GENERATION (test code = 2821) 1.600 UIU/ML Jaden PonceZqvnthJT-[id number] 00:00:00* Test Item Value Reference Range Interpretation Comme nts NT-proBNP (test code = 70530) <50 PG/ML Jaden PonceHEMOGLOBIN [id number] 00:00:00* Test Item Value Reference Range Interpretation Comme nts HEMOGLOBIN A1c (test code = 10707) 5.9 % Jaden PonceCBC W/AUTO [id number] 00:00:00* Test Item Value Reference Range Interpretation [...] ABS NUCLEATED RBCS (test cod e = 16442) 0.00 K/UL Jaden PonceCOMPREHENSIVE METABOLIC [id number] 00:00:00* Test Item Value Reference Range Interpretation Comme nts GLUCOSE (test code = 2217) 137 MG/DL BUN (test code = 2208) 12 MG/DL CREATININE (test code = 2214) 0.60 MG/DL eGFR (2020 CKD-EPI) (test co de = 93345) 99 ML/MIN/1.73 CALC BUN/CREAT (test code = [...] code = 2219) 11 U/L Jaden PonceLIPID [id number] 00:00:00* Test Item Value Reference Range Interpretation Comme nts CHOLESTEROL (test code = 2210) 236 MG/DL TRIGLYCERIDES (test code = 2232) 274 MG/DL HDL CHOLESTEROL (test code = 2220) 54 MG/DL CALC LDL CHOL (test code = 2237) 140 MG/DL RISK RATIO LDL/HDL (test cod e = 2238) 2.59 RATIO Jaden PonceTSH, THIRD [id number] 00:00:00* Test Item Value Reference Range Interpretation Comme nts TSH, THIRD GENERATION (test code = 2821) 1.600 UIU/ML Jaden PonceWkpbpvIF-[id number] 00:00:00* Test Item Value Reference Range Interpretation Comme nts NT-proBNP (test code = 90041) <50 PG/ML Jaden PonceHEMOGLOBIN [id number] 00:00:00* Test Item Value Reference Range Interpretation Comme nts HEMOGLOBIN A1c (test code = 47718) 5.9 % Jaden PonceCBC W/AUTO [id number] 00:00:00* Test Item Value Reference Range Interpretation [...] ABS NUCLEATED RBCS (test cod e = 54799) 0.00 K/UL Jaden F KrisCOMPREHENSIVE METABOLIC [id number] 00:00:00* Test Item Value Reference Range Interpretation Comme nts GLUCOSE (test code = 2217) 137 MG/DL BUN (test code = 2208) 12 MG/DL CREATININE (test code = 2214) 0.60 MG/DL eGFR (2020 CKD-EPI) (test co de = 98099) 99 ML/MIN/1.73 CALC BUN/CREAT (test code = [...] code = 2219) 11 U/L Jaden PonceLIPID [id number] 00:00:00* Test Item Value Reference Range Interpretation Comme nts CHOLESTEROL (test code = 2210) 236 MG/DL TRIGLYCERIDES (test code = 2232) 274 MG/DL HDL CHOLESTEROL (test code = 2220) 54 MG/DL CALC LDL CHOL (test code = 2237) 140 MG/DL RISK RATIO LDL/HDL (test cod e = 2238) 2.59 RATIO Jaden PonceTSH, THIRD [id number] 00:00:00* Test Item Value Reference Range Interpretation Comme adrián TSH, THIRD GENERATION (test code = 2821) 1.600 UIU/ML Jaden PonceCrsmgdKM-[id number] 00:00:00* Test Item Value Reference Range Interpretation Comme adrián NT-proBNP (test code = 21256) <50 PG/ML Jaden PonceHEMOGLOBIN [id number] 00:00:00* Test Item Value Reference Range Interpretation Comme adrián HEMOGLOBIN A1c (test code = 97767) 5.9 % Jaden PonceHEMOGLOBIN [id number] 00:00:00* Test Item Value Reference Range Interpretation Comme adrián HEMOGLOBIN A1c (test code = 54863) 5.9 % CBC W/AUTO [id number] 00:00:00* Test Item Value Reference Range Interpretation [...] ABS NUCLEATED RBCS (test cod e = 96391) 0.00 K/UL COMPREHENSIVE METABOLIC [id number] 00:00:00* Test Item Value Reference Range Interpretation Comme nts GLUCOSE (test code = 2217) 137 MG/DL BUN (test code = 2208) 12 MG/DL CREATININE (test code = 2214) 0.60 MG/DL eGFR (2020 CKD-EPI) (test co de = 34245) 99 ML/MIN/1.73 CALC BUN/CREAT (test code = [...] (test code = 2219) 11 U/L LIPID [id number] 00:00:00* Test Item Value Reference Range Interpretation Comme nts CHOLESTEROL (test code = 2210) 236 MG/DL TRIGLYCERIDES (test code = 2232) 274 MG/DL HDL CHOLESTEROL (test code = 2220) 54 MG/DL CALC LDL CHOL (test code = 2237) 140 MG/DL RISK RATIO LDL/HDL (test cod e = 2238) 2.59 RATIO TSH, THIRD [id number] 00:00:00* Test Item Value Reference Range Interpretation Comme nts TSH, THIRD GENERATION (test code = 2821) 1.600 UIU/ML [id number] 00:00:00* Test Item Value Reference Range Interpretation Comme nts NT-proBNP (test code = 92792) <50 PG/ML HEMOGLOBIN [id number] 00:00:00* Test Item Value Reference Range Interpretation Comme nts HEMOGLOBIN A1c (test code = 85435) 5.9 % CBC W/AUTO [id number] 00:00:00* Test Item Value Reference Range Interpretation [...] ABS NUCLEATED RBCS (test cod e = 51404) 0.00 K/UL COMPREHENSIVE METABOLIC [id number] 00:00:00* Test Item Value Reference Range Interpretation Comme nts GLUCOSE (test code = 2217) 137 MG/DL BUN (test code = 2208) 12 MG/DL CREATININE (test code = 2214) 0.60 MG/DL eGFR (2020 CKD-EPI) (test co de = 75391) 99 ML/MIN/1.73 CALC BUN/CREAT (test code = [...] (test code = 2219) 11 U/L LIPID [id number] 00:00:00* Test Item Value Reference Range Interpretation Comme nts CHOLESTEROL (test code = 2210) 236 MG/DL TRIGLYCERIDES (test code = 2232) 274 MG/DL HDL CHOLESTEROL (test code = 2220) 54 MG/DL CALC LDL CHOL (test code = 2237) 140 MG/DL RISK RATIO LDL/HDL (test cod e = 2238) 2.59 RATIO TSH, THIRD [id number] 00:00:00* Test Item Value Reference Range Interpretation Comme nts TSH, THIRD GENERATION (test code = 2821) 1.600 UIU/ML [id number] 00:00:00* Test Item Value Reference Range Interpretation Comme nts NT-proBNP (test code = 75291) <50 PG/ML HEMOGLOBIN [id number] 00:00:00* Test Item Value Reference Range Interpretation Comme nts HEMOGLOBIN A1c (test code = 19967) 5.9 % CBC W/AUTO [id number] 00:00:00* Test Item Value Reference Range Interpretation [...] ABS NUCLEATED RBCS (test cod e = 09755) 0.00 K/UL COMPREHENSIVE METABOLIC [id number] 00:00:00* Test Item Value Reference Range Interpretation Comme nts GLUCOSE (test code = 2217) 137 MG/DL BUN (test code = 2208) 12 MG/DL CREATININE (test code = 2214) 0.60 MG/DL eGFR (2020 CKD-EPI) (test co de = 01558) 99 ML/MIN/1.73 CALC BUN/CREAT (test code = [...] (test code = 2219) 11 U/L LIPID [id number] 00:00:00* Test Item Value Reference Range Interpretation Comme nts CHOLESTEROL (test code = 2210) 236 MG/DL TRIGLYCERIDES (test code = 2232) 274 MG/DL HDL CHOLESTEROL (test code = 2220) 54 MG/DL CALC LDL CHOL (test code = 2237) 140 MG/DL RISK RATIO LDL/HDL (test cod e = 2238) 2.59 RATIO TSH, THIRD [id number] 00:00:00* Test Item Value Reference Range Interpretation Comme nts TSH, THIRD GENERATION (test code = 2821) 1.600 UIU/ML [id number] 00:00:00* Test Item Value Reference Range Interpretation Comme nts NT-proBNP (test code = 64004) <50 PG/ML HEMOGLOBIN [id number] 00:00:00* Test Item Value Reference Range Interpretation Comme nts HEMOGLOBIN A1c (test code = 08950) 5.9 % CBC W/AUTO [id number] 00:00:00* Test Item Value Reference Range Interpretation [...] ABS NUCLEATED RBCS (test cod e = 07359) 0.00 K/UL COMPREHENSIVE METABOLIC [id number] 00:00:00* Test Item Value Reference Range Interpretation Comme nts GLUCOSE (test code = 2217) 137 MG/DL BUN (test code = 2208) 12 MG/DL CREATININE (test code = 2214) 0.60 MG/DL eGFR (2020 CKD-EPI) (test co de = 24844) 99 ML/MIN/1.73 CALC BUN/CREAT (test code = [...] (test code = 2219) 11 U/L LIPID [id number] 00:00:00* Test Item Value Reference Range Interpretation Comme nts CHOLESTEROL (test code = 2210) 236 MG/DL TRIGLYCERIDES (test code = 2232) 274 MG/DL HDL CHOLESTEROL (test code = 2220) 54 MG/DL CALC LDL CHOL (test code = 2237) 140 MG/DL RISK RATIO LDL/HDL (test cod e = 2238) 2.59 RATIO TSH, THIRD [id number] 00:00:00* Test Item Value Reference Range Interpretation Comme nts TSH, THIRD GENERATION (test code = 2821) 1.600 UIU/ML [id number] 00:00:00* Test Item Value Reference Range Interpretation Comme nts NT-proBNP (test code = 64811) <50 PG/ML CBC W/AUTO [id number] 00:00:00* Test Item Value Reference Range Interpretation [...] ABS NUCLEATED RBCS (test cod e = 95639) 0.00 K/UL Jaden PonceCOMPREHENSIVE METABOLIC [id number] 00:00:00* Test Item Value Reference Range Interpretation Comme nts GLUCOSE (test code = 2217) 106 MG/DL BUN (test code = 2208) 7 MG/DL CREATININE (test code = 2214) 0.57 MG/DL eGFR AMER. (test cod e = 84338) 113 ML/MIN/1.73 eGFR NON- AMER. (test code = 82220) 97 ML/MIN/1.73 CALC BUN/CREAT (test code = [...] (test code = 2219) 12 U/L Jaden [id number] 00:00:00* Test Item Value Reference Range Interpretation Comme nts TSH, THIRD GENERATION (test code = 2821) 1.390 UIU/ML Jaden PonceHEMOGLOBIN A1c [ADDED]2021-04-05 00:00:00* Test Item Value Reference Range Interpretation Comme adrián HEMOGLOBIN A1c (test code = 57733) 5.7 % Jaden PonceLIPID [id number] 00:00:00* Test Item Value Reference Range Interpretation Comme nts CHOLESTEROL (test code = 2210) 252 MG/DL TRIGLYCERIDES (test code = 2232) 171 MG/DL HDL CHOLESTEROL (test code = 2220) 61 MG/DL CALC LDL CHOL (test code = 2237) 159 MG/DL RISK RATIO LDL/HDL (test cod e = 2238) 2.61 RATIO Jaden PonceCBC W/AUTO [id number] 00:00:00* Test Item Value Reference Range Interpretation [...] ABS NUCLEATED RBCS (test cod e = 62863) 0.00 K/UL Jaden PonceCOMPREHENSIVE METABOLIC [id number] 00:00:00* Test Item Value Reference Range Interpretation Comme nts GLUCOSE (test code = 2217) 106 MG/DL BUN (test code = 2208) 7 MG/DL CREATININE (test code = 2214) 0.57 MG/DL eGFR AMER. (test cod e = 96202) 113 ML/MIN/1.73 eGFR NON- AMER. (test code = 80603) 97 ML/MIN/1.73 CALC BUN/CREAT (test code = [...] (test code = 2219) 12 U/L Jaden [id number] 00:00:00* Test Item Value Reference Range Interpretation Comme [facility] TSH, THIRD GENERATION (test code = 2821) 1.390 UIU/ML Jaden PonceHEMOGLOBIN A1c [ADDED]2021-04-05 00:00:00* Test Item Value Reference Range Interpretation Comme adrián HEMOGLOBIN A1c (test code = 14742) 5.7 % Jaden PonceLIPID [id number] 00:00:00* Test Item Value Reference Range Interpretation Comme nts CHOLESTEROL (test code = 2210) 252 MG/DL TRIGLYCERIDES (test code = 2232) 171 MG/DL HDL CHOLESTEROL (test code = 2220) 61 MG/DL CALC LDL CHOL (test code = 2237) 159 MG/DL RISK RATIO LDL/HDL (test cod e = 2238) 2.61 RATIO Jaden PonceCBC W/AUTO [id number] 00:00:00* Test Item Value Reference Range Interpretation [...] ABS NUCLEATED RBCS (test cod e = 29587) 0.00 K/UL Jaden PonceCOMPREHENSIVE METABOLIC [id number] 00:00:00* Test Item Value Reference Range Interpretation Comme nts GLUCOSE (test code = 2217) 106 MG/DL BUN (test code = 2208) 7 MG/DL CREATININE (test code = 2214) 0.57 MG/DL eGFR AMER. (test cod e = 38588) 113 ML/MIN/1.73 eGFR NON- AMER. (test code = 31972) 97 ML/MIN/1.73 CALC BUN/CREAT (test code = [...] (test code = 2219) 12 U/L Jaden [id number] 00:00:00* Test Item Value Reference Range Interpretation Comme adrián TSH, THIRD GENERATION (test code = 2821) 1.390 UIU/ML Jaden PonceHEMOGLOBIN A1c [ADDED]2021-04-05 00:00:00* Test Item Value Reference Range Interpretation Comme adrián HEMOGLOBIN A1c (test code = 58618) 5.7 % Jaden PonceLIPID [id number] 00:00:00* Test Item Value Reference Range Interpretation Comme nts CHOLESTEROL (test code = 2210) 252 MG/DL TRIGLYCERIDES (test code = 2232) 171 MG/DL HDL CHOLESTEROL (test code = 2220) 61 MG/DL CALC LDL CHOL (test code = 2237) 159 MG/DL RISK RATIO LDL/HDL (test cod e = 2238) 2.61 RATIO Jaden PonceLIPID [id number] 00:00:00* Test Item Value Reference Range Interpretation Comme nts CHOLESTEROL (test code = 2210) 252 MG/DL TRIGLYCERIDES (test code = 2232) 171 MG/DL HDL CHOLESTEROL (test code = 2220) 61 MG/DL CALC LDL CHOL (test code = 2237) 159 MG/DL RISK RATIO LDL/HDL (test cod e = 2238) 2.61 RATIO CBC W/AUTO [id number] 00:00:00* Test Item Value Reference Range Interpretation [...] ABS NUCLEATED RBCS (test cod e = 04942) 0.00 K/UL COMPREHENSIVE METABOLIC [id number] 00:00:00* Test Item Value Reference Range Interpretation Comme nts GLUCOSE (test code = 2217) 106 MG/DL BUN (test code = 2208) 7 MG/DL CREATININE (test code = 2214) 0.57 MG/DL eGFR AMER. (test cod e = 39024) 113 ML/MIN/1.73 eGFR NON- AMER. (test code = 19234) 97 ML/MIN/1.73 CALC BUN/CREAT (test code = [...] ALT (test code = 2219) 12 U/L [id number] 00:00:00* Test Item Value Reference Range Interpretation Comme nts TSH, THIRD GENERATION (test code = 2821) 1.390 UIU/ML HEMOGLOBIN A1c [ADDED]2021-04-05 00:00:00* Test Item Value Reference Range Interpretation Comme nts HEMOGLOBIN A1c (test code = 24804) 5.7 % LIPID [id number] 00:00:00* Test Item Value Reference Range Interpretation Comme nts CHOLESTEROL (test code = 2210) 252 MG/DL TRIGLYCERIDES (test code = 2232) 171 MG/DL HDL CHOLESTEROL (test code = 2220) 61 MG/DL CALC LDL CHOL (test code = 2237) 159 MG/DL RISK RATIO LDL/HDL (test cod e = 2238) 2.61 RATIO CBC W/AUTO [id number] 00:00:00* Test Item Value Reference Range Interpretation [...] ABS NUCLEATED RBCS (test cod e = 71547) 0.00 K/UL COMPREHENSIVE METABOLIC [id number] 00:00:00* Test Item Value Reference Range Interpretation Comme nts GLUCOSE (test code = 2217) 106 MG/DL BUN (test code = 2208) 7 MG/DL CREATININE (test code = 2214) 0.57 MG/DL eGFR AMER. (test cod e = 26738) 113 ML/MIN/1.73 eGFR NON- AMER. (test code = 05830) 97 ML/MIN/1.73 CALC BUN/CREAT (test code = [...] ALT (test code = 2219) 12 U/L [id number] 00:00:00* Test Item Value Reference Range Interpretation Comme [facility] TSH, THIRD GENERATION (test code = 2821) 1.390 UIU/ML HEMOGLOBIN A1c [ADDED]2021-04-05 00:00:00* Test Item Value Reference Range Interpretation Comme [facility] HEMOGLOBIN A1c (test code = 24159) 5.7 % LIPID [id number] 00:00:00* Test Item Value Reference Range Interpretation Comme nts CHOLESTEROL (test code = 2210) 252 MG/DL TRIGLYCERIDES (test code = 2232) 171 MG/DL HDL CHOLESTEROL (test code = 2220) 61 MG/DL CALC LDL CHOL (test code = 2237) 159 MG/DL RISK RATIO LDL/HDL (test cod e = 223) 2.61 RATIO CBC W/AUTO [id number] 00:00:00* Test Item Value Reference Range Interpretation [...] ABS NUCLEATED RBCS (test cod e = 74511) 0.00 K/UL COMPREHENSIVE METABOLIC [id number] 00:00:00* Test Item Value Reference Range Interpretation Comme nts GLUCOSE (test code = 2217) 106 MG/DL BUN (test code = 2208) 7 MG/DL CREATININE (test code = 2214) 0.57 MG/DL eGFR AMER. (test cod e = 33654) 113 ML/MIN/1.73 eGFR NON- AMER. (test code = 04085) 97 ML/MIN/1.73 CALC BUN/CREAT (test code = [...] ALT (test code = 2219) 12 U/L [id number] 00:00:00* Test Item Value Reference Range Interpretation Comme nts TSH, THIRD GENERATION (test code = 2821) 1.390 UIU/ML HEMOGLOBIN A1c [ADDED]2021-04-05 00:00:00* Test Item Value Reference Range Interpretation Comme nts HEMOGLOBIN A1c (test code = 02795) 5.7 % LIPID [id number] 00:00:00* Test Item Value Reference Range Interpretation Comme nts CHOLESTEROL (test code = 2210) 252 MG/DL TRIGLYCERIDES (test code = 2232) 171 MG/DL HDL CHOLESTEROL (test code = 2220) 61 MG/DL CALC LDL CHOL (test code = 2237) 159 MG/DL RISK RATIO LDL/HDL (test cod e = 2238) 2.61 RATIO CBC W/AUTO [id number] 00:00:00* Test Item Value Reference Range Interpretation [...] ABS NUCLEATED RBCS (test cod e = 53731) 0.00 K/UL COMPREHENSIVE METABOLIC [id number] 00:00:00* Test Item Value Reference Range Interpretation Comme nts GLUCOSE (test code = 2217) 106 MG/DL BUN (test code = 2208) 7 MG/DL CREATININE (test code = 2214) 0.57 MG/DL eGFR AMER. (test cod e = 67553) 113 ML/MIN/1.73 eGFR NON- AMER. (test code = 36826) 97 ML/MIN/1.73 CALC BUN/CREAT (test code = [...] ALT (test code = 2219) 12 U/L [id number] 00:00:00* Test Item Value Reference Range Interpretation Comme [facility] TSH, THIRD GENERATION (test code = 2821) 1.390 UIU/ML HEMOGLOBIN A1c [ADDED]2021-04-05 00:00:00* Test Item Value Reference Range Interpretation Comme [facility] HEMOGLOBIN A1c (test code = 75448) 5.7 % HEMOGLOBIN [id number] 00:00:00* Test Item Value Reference Range Interpretation Comme nts HEMOGLOBIN A1c (test code = 13939) 5.7 % Jaden PonceLIPID [id number] 00:00:00* Test Item Value Reference Range Interpretation Comme nts CHOLESTEROL (test code = 2210) 166 MG/DL TRIGLYCERIDES (test code = 2232) 209 MG/DL HDL CHOLESTEROL (test code = 2220) 47 MG/DL CALC LDL CHOL (test code = 2237) 89 MG/DL RISK RATIO LDL/HDL (test cod e = 2238) 1.89 RATIO Jaden PonceCOMPREHENSIVE METABOLIC [id number] 00:00:00* Test Item Value Reference Range Interpretation Comme nts GLUCOSE (test code = 2217) 106 MG/DL BUN (test code = 2208) 10 MG/DL CREATININE (test code = 2214) 0.64 MG/DL eGFR AMER. (test cod e = 94816) 110 ML/MIN/1.73 eGFR NON- AMER. (test code = 70894) 95 ML/MIN/1.73 CALC BUN/CREAT (test code = [...] (test code = 2219) 19 U/L Jaden [id number] 00:00:00* Test Item Value Reference Range Interpretation Comme nts TSH, THIRD GENERATION (test code = 2821) 1.690 UIU/ML Jaden PonceCBC W/AUTO [id number] 00:00:00* Test Item Value Reference Range Interpretation [...] code = 1015) 249 K/UL Jaden PonceHEMOGLOBIN [id number] 00:00:00* Test Item Value Reference Range Interpretation Comme [facility] HEMOGLOBIN A1c (test code = 67321) 5.7 % Jaden PonceLIPID [id number] 00:00:00* Test Item Value Reference Range Interpretation Comme nts CHOLESTEROL (test code = 2210) 166 MG/DL TRIGLYCERIDES (test code = 2232) 209 MG/DL HDL CHOLESTEROL (test code = 2220) 47 MG/DL CALC LDL CHOL (test code = 2237) 89 MG/DL RISK RATIO LDL/HDL (test cod e = 2238) 1.89 RATIO Jaden PonceCOMPREHENSIVE METABOLIC [id number] 00:00:00* Test Item Value Reference Range Interpretation Comme nts GLUCOSE (test code = 2217) 106 MG/DL BUN (test code = 2208) 10 MG/DL CREATININE (test code = 2214) 0.64 MG/DL eGFR AMER. (test cod e = 52467) 110 ML/MIN/1.73 eGFR NON- AMER. (test code = 69276) 95 ML/MIN/1.73 CALC BUN/CREAT (test code = [...] (test code = 2219) 19 U/L Jaden [id number] 00:00:00* Test Item Value Reference Range Interpretation Comme nts TSH, THIRD GENERATION (test code = 2821) 1.690 UIU/ML Jaden PonceCBC W/AUTO [id number] 00:00:00* Test Item Value Reference Range Interpretation [...] code = 1015) 249 K/UL Jaden PonceHEMOGLOBIN [id number] 00:00:00* Test Item Value Reference Range Interpretation Comme [facility] HEMOGLOBIN A1c (test code = 37941) 5.7 % Jaden PonceLIPID [id number] 00:00:00* Test Item Value Reference Range Interpretation Comme nts CHOLESTEROL (test code = 2210) 166 MG/DL TRIGLYCERIDES (test code = 2232) 209 MG/DL HDL CHOLESTEROL (test code = 2220) 47 MG/DL CALC LDL CHOL (test code = 2237) 89 MG/DL RISK RATIO LDL/HDL (test cod e = 2238) 1.89 RATIO Jaden PonceCOMPREHENSIVE METABOLIC [id number] 00:00:00* Test Item Value Reference Range Interpretation Comme nts GLUCOSE (test code = 2217) 106 MG/DL BUN (test code = 2208) 10 MG/DL CREATININE (test code = 2214) 0.64 MG/DL eGFR AMER. (test cod e = 88925) 110 ML/MIN/1.73 eGFR NON- AMER. (test code = 77753) 95 ML/MIN/1.73 CALC BUN/CREAT (test code = [...] (test code = 2219) 19 U/L Jaden [id number] 00:00:00* Test Item Value Reference Range Interpretation Comme adrián TSH, THIRD GENERATION (test code = 2821) 1.690 UIU/ML Jaden PonceCBC W/AUTO [id number] 00:00:00* Test Item Value Reference Range Interpretation [...] (test code = 1015) 249 K[facility] [id number] 00:00:00* Test Item Value Reference Range Interpretation [...] (test code = 1015) 249 K/UL HEMOGLOBIN [id number] 00:00:00* Test Item Value Reference Range Interpretation Comme nts HEMOGLOBIN A1c (test code = 14470) 5.7 % LIPID [id number] 00:00:00* Test Item Value Reference Range Interpretation Comme nts CHOLESTEROL (test code = 2210) 166 MG/DL TRIGLYCERIDES (test code = 2232) 209 MG/DL HDL CHOLESTEROL (test code = 2220) 47 MG/DL CALC LDL CHOL (test code = 2237) 89 MG/DL RISK RATIO LDL/HDL (test cod e = 2238) 1.89 RATIO COMPREHENSIVE METABOLIC [id number] 00:00:00* Test Item Value Reference Range Interpretation Comme nts GLUCOSE (test code = 2217) 106 MG/DL BUN (test code = 2208) 10 MG/DL CREATININE (test code = 2214) 0.64 MG/DL eGFR AMER. (test cod e = 14090) 110 ML/MIN/1.73 eGFR NON- AMER. (test code = 42162) 95 ML/MIN/1.73 CALC BUN/CREAT (test code = [...] ALT (test code = 2219) 19 U/L [id number] 00:00:00* Test Item Value Reference Range Interpretation Comme nts TSH, THIRD GENERATION (test code = 2821) 1.690 UIU/ML CBC W/AUTO [id number] 00:00:00* Test Item Value Reference Range Interpretation [...] (test code = 1015) 249 K/UL HEMOGLOBIN [id number] 00:00:00* Test Item Value Reference Range Interpretation Comme nts HEMOGLOBIN A1c (test code = 63162) 5.7 % LIPID [id number] 00:00:00* Test Item Value Reference Range Interpretation Comme nts CHOLESTEROL (test code = 2210) 166 MG/DL TRIGLYCERIDES (test code = 2232) 209 MG/DL HDL CHOLESTEROL (test code = 2220) 47 MG/DL CALC LDL CHOL (test code = 2237) 89 MG/DL RISK RATIO LDL/HDL (test cod e = 2238) 1.89 RATIO COMPREHENSIVE METABOLIC [id number] 00:00:00* Test Item Value Reference Range Interpretation Comme nts GLUCOSE (test code = 2217) 106 MG/DL BUN (test code = 2208) 10 MG/DL CREATININE (test code = 2214) 0.64 MG/DL eGFR AMER. (test cod e = 22162) 110 ML/MIN/1.73 eGFR NON- AMER. (test code = 52605) 95 ML/MIN/1.73 CALC BUN/CREAT (test code = [...] ALT (test code = 2219) 19 U/L [id number] 00:00:00* Test Item Value Reference Range Interpretation Comme nts TSH, THIRD GENERATION (test code = 2821) 1.690 UIU/ML CBC W/AUTO [id number] 00:00:00* Test Item Value Reference Range Interpretation [...] (test code = 1015) 249 K/UL HEMOGLOBIN [id number] 00:00:00* Test Item Value Reference Range Interpretation Comme nts HEMOGLOBIN A1c (test code = 79925) 5.7 % LIPID [id number] 00:00:00* Test Item Value Reference Range Interpretation Comme nts CHOLESTEROL (test code = 2210) 166 MG/DL TRIGLYCERIDES (test code = 2232) 209 MG/DL HDL CHOLESTEROL (test code = 2220) 47 MG/DL CALC LDL CHOL (test code = 2237) 89 MG/DL RISK RATIO LDL/HDL (test cod e = 2238) 1.89 RATIO COMPREHENSIVE METABOLIC [id number] 00:00:00* Test Item Value Reference Range Interpretation Comme nts GLUCOSE (test code = 2217) 106 MG/DL BUN (test code = 2208) 10 MG/DL CREATININE (test code = 2214) 0.64 MG/DL eGFR AMER. (test cod e = 89851) 110 ML/MIN/1.73 eGFR NON- AMER. (test code = 56201) 95 ML/MIN/1.73 CALC BUN/CREAT (test code = [...] ALT (test code = 2219) 19 U/L [id number] 00:00:00* Test Item Value Reference Range Interpretation Comme nts TSH, THIRD GENERATION (test code = 2821) 1.690 UIU/ML CBC W/AUTO [id number] 00:00:00* Test Item Value Reference Range Interpretation [...] (test code = 1015) 249 K/UL HEMOGLOBIN [id number] 00:00:00* Test Item Value Reference Range Interpretation Comme nts HEMOGLOBIN A1c (test code = 13060) 5.7 % LIPID [id number] 00:00:00* Test Item Value Reference Range Interpretation Comme nts CHOLESTEROL (test code = 2210) 166 MG/DL TRIGLYCERIDES (test code = 2232) 209 MG/DL HDL CHOLESTEROL (test code = 2220) 47 MG/DL CALC LDL CHOL (test code = 2237) 89 MG/DL RISK RATIO LDL/HDL (test cod e = 2238) 1.89 RATIO COMPREHENSIVE METABOLIC [id number] 00:00:00* Test Item Value Reference Range Interpretation Comme nts GLUCOSE (test code = 2217) 106 MG/DL BUN (test code = 2208) 10 MG/DL CREATININE (test code = 2214) 0.64 MG/DL eGFR AMER. (test cod e = 19253) 110 ML/MIN/1.73 eGFR NON- AMER. (test code = 00148) 95 ML/MIN/1.73 CALC BUN/CREAT (test code = [...] ALT (test code = 2219) 19 U/L [id number] 00:00:00* Test Item Value Reference Range Interpretation Comme nts TSH, THIRD GENERATION (test code = 2821) 1.690 UIU/ML Notes Date/Time Note Provider Source [facility]2024-09-20 00:00:00 [facility]2024-06-27 00:00:00 [facility]
[2024-08-10 17:40] LABS: Sqamous Epithelial None Seen /HPF (None Seen); Urine Bacteria None Seen /HPF (<20); Urine Bilirubin NEGATIVE (Negative); Urine Blood Negative (Negative); Urine Clarity Clear (Clear); Urine Color Light-Yellow (Yellow); Urine Culture Reflex Order NOT NEEDED; Urine Glucose NEGATIVE (Negative); Urine Ketones NEGATIVE (Negative); Urine Microscopic Reflex YN ORDER UMIC; Urine Nitrite NEGATIVE (Negative); Urine Protein NEGATIVE (Negative); Urine RBC <5 /HPF (None Seen); Urine Urobilinogen Normal (Normal); Urine WBC None Seen /HPF (<5); Urine pH 6.5 (5.0-7.0)
--- NOTE | 2024-08-10 18:02 | RAD REPORT ---
EXAM: CT Head Brain Wo Cont HISTORY: altered mental status, drowsiness COMPARISON: 07/21/2024 TECHNIQUE: Multiple contiguous axial images were obtained for a CT of the brain without contrast. Sag ittal and coronal reformats were performed. One or more of the following dose reduction techniques were used: Automated exposure control, adjus tment of the mA and kV according to patient size, and iterative reconstruction. Unless otherwise specified, incidental findings do not require dedicated imaging follow-up. FINDINGS: No evidence of hydrocephalus, intracranial hemorrhage, or extra-axial fluid collection. The brain is normal in morphology. The calvarium is intact. The visualized paranasal sinuses and mastoid air cells are essentially clear . IMPRESSION: No evidence of acute intracranial abnormality.
--- NOTE | 2024-08-10 18:18 | RAD REPORT ---
EXAMINATION: CT Abdomen Pelvis Wo Contrast CLINICAL INDICATION: Female, 69 years old. ABD PAIN TECHNIQUE: CT abdomen and pelvis was performed, without IV contrast, as per department protocol. Axia l, sagittal and coronal reconstructions were obtained. One or more of the following dose reduction techniques were used: Automated exposure control, adjustment of the mA and kV according to the patien t size, and iterative reconstruction. Unless otherwise specified, incidental findings do not require dedicated imaging follow-up. COMPARISON: 01/01/2020 FINDINGS: The lack of intravenous contrast limits the sensitivity of this exam for evaluation of solid visceral organs, vascular structures, and retroperitoneum. LOWER CHEST: The visualized lung bases are clear. LIVER: Normal in size and contour. No focal lesion. BILIARY SYSTEM: Status post cholecystectomy. SPLEEN: Normal size. No focal lesion. PANCREAS: No mass, ductal dilation, or rayna-pancreatic fluid. ADRENALS: Normal; no mass. KIDNEYS AND URETERS: Normal size and contour. No hydronephrosis. URINARY BLADDER: Normal contour. GASTROINTESTINAL TRACT: Marked fluid distention of mid to distal small bowel with air-fluid levels, e xtending approximately right lower quadrant anastomotic suture lines. There is a short segment of transition to collapsed distal ileum, in the central abdomen, best appreciated on series 201 image 41 and series 2 to image 27. No Significant free fluid, free air or abscess. APPENDIX: Appendix not visualized, but no inflammatory changes in region of appendix. LYMPH NODES: No lymphadenopathy. MUSCULOSKELETAL: No acute or suspicious osseous abnormality. ADDITIONAL FINDINGS: None. IMPRESSION: Findings of high-grade small bowel obstruction, with transition point in the central abdomen along th e distal ileum. Other incidental findings as above.
[2024-08-10] MEDS ORDERED: NALOXONE HCL 2 MG/2 ML VIAL ONE (18:31)
[2024-08-10 18:34] LABS: Absolute Basophils 0.1 K/uL (0-0.5); Absolute Lymphocytes (CBC) 1.1 K/uL (0.7-4.9); Absolute Monocytes 0.6 K/uL (0.1-1.3); Absolute Neutrophil 6.5 K/uL (1.8-8.0); Basophils % 0.7 % (0-1.3); Eosinophils % 0.2 % (0-4.4); Hematocrit 42.7 % (36.0-45.0); Hemoglobin 14.2 g/dL (12.0-15.0); Lymphocytes % 12.9 % (15.3-44.8); MCH 32.8 pg (27.0-35.0); MCHC 33.3 g/dL (32.0-36.0); MCV 98.5 fL (80-100); MPV 6.9 fL (7.6-11.3); Monocytes % 6.8 % (3.3-12.3); Neutrophils % 79.4 % (41.7-73.7); Nucleated Red Blood Cells % 0.2 % (0-0); Platelets 232 thou/uL (152-406); RBC Red Blood Cell Count 4.34 M/uL (3.86-4.86); Red Cell Distribution Width 14.5 % (12.1-15.2)
[2024-08-10] MEDS ORDERED: ONDANSETRON 4 MG/2 ML VIAL ONE (18:36)
[2024-08-10 18:51] LABS: Albumin 3.3 g/dL (3.4-5.0); Albumin/Globulin Ratio 0.9 (1.1-1.8); Anion Gap 10.3 mEq/L (5.0-15.0); Bilirubin Total 0.4 mg/dL (0.2-1.0); Globulin 3.7 g/dL (2.3-3.5); Potassium 4.3 mEq/L (3.5-5.1)
--- NOTE | 2024-08-10 18:54 | EDPHYS ---
Physician Documentation [facility] Name: Delmi Pool Age: 69 yrs Sex: Female : 1955 Arrival Date: 08/10/2024 Time: 17:08 Bed 3 Private MD: ED Physician Miguel Angel Mabry HPI: 08/10 17:11 This 69 yrs old Female presents to ER via Unassigned with complaints of ec2 Possible Overdose. 17:11 Patient arrives today d/t concern for drowsiness. Family concerned about ec2 overmedication. Patient was recently prescribed hydrocodone, 30 tablets and was filled on 08/08/2024, now 4 tablets remaining in the bottle. Patient with some possible abdominal pain as well, is drowsy however responsive. Historical: - Allergies: 17:11 Sulfa (Sulfonamide Antibiotics); kc6 17:11 Toradol; kc6 17:11 tramadol; kc6 - PMHx: 17:11 diabetes mellitus; Hypercholesterolemia; Hypertensive disorder; neuropathy; kc6 - PSHx: 17:11 Appendectomy; Bowel Retracement; section; Cholecystectomy; kc6 - Immunization history:: Adult Immunizations unknown. - Infectious Disease History:: Denies. - Social history:: Smoking status: Patient reports the use of cigarette tobacco products, smokes one pack cigarettes per day. ROS: 17:12 Constitutional: as per hpi ec2 Exam: 17:12 Constitutional: GEN: NAD Head: atraumatic Eyes: EOMI Ears: External ears are ec2 normal. CV: regular rate LUNGS: no respiratory distress ABD: non-distended, soft, generally tender, not guarding or rigid SKIN: no evidence of rashes MSK: no evidence of trauma. Neuro: Drowsy individual who is easily responsive to verbal stimuli. Vital Signs: 17:09 BP 146 / 83; Pulse 85; Resp 18 S; Pulse Ox 94% on 2 lpm NC; Weight 54 kg (M); Height 5 kc6 ft. 0 in. (R); Pain 0/10; 17:57 BP 166 / 84; Pulse 88; Resp 18 S; Pulse Ox 98% on 2 lpm NC; kc6 19:00 BP 170 / 75; Pulse 89; Resp 21; Pulse Ox 95% on R/A; al5 19:30 BP 159 / 74; Pulse 86; Resp 21; Pulse Ox 94% on R/A; al5 17:09 Body Mass Index 23.25 (54.00 kg, 152.4 cm) kc6 17:09 Pain Scale: Adult kc6 MDM: 17:10 Medical Screening Exam initiated ec2 17:13 Data reviewed: vital signs, nurses notes. ED course: Patient arrives today for ec2 evaluation of drowsiness in the setting of possible overdose. Examination yields draws individual was otherwise cooperative and in no acute respiratory distress with a reassuring examination with possible abdominal TTP. Will obtain lab work, CT of the abdomen pelvis, CT scan of the head. DDx include processes such as intracranial brain bleed, intra-abdominal infection, UTI, overdose of her opiate medications.. 18:37 ED course: Patient not wanting to answer questions due to drowsiness, give her 2 mg of ec2 IV Narcan which improved her mental status however patient now nauseous and vomiting. Patient with a small bowel obstruction, has previous abdominal surgeries however unclear who performed previous surgeries, will admit for symptomatic management.. 18:53 ED course: Will admit for a bowel obstruction, discussed with surgeon who will consult, ec2 discussed with hospitalist will admit.. 08/10 17:10 Order name: CBC with Diff; Complete Time: 18:52 ec2 08/10 17:10 Order name: CMP; Complete Time: 18:52 ec2 08/10 17:10 Order name: Lipase; Complete Time: 18:52 ec2 08/10 17:10 Order name: Urinalysis w/ reflexes; Complete Time: 18:25 ec2 08/10 19:40 Order name: Lactate w/ 2H reflex if indic. EDNC 08/10 19:40 Order name: Magnesium EDNC 08/10 19:40 Order name: Phosphorus EDNC 08/10 19:40 Order name: Urinalysis w/ reflexes EDNC 08/10 19:40 Order name: Basic Metabolic Panel EDNC 08/10 19:40 Order name: Basic Metabolic Panel EDNC 08/10 19:40 Order name: Comprehensive Metabolic Panel EDNC 08/10 19:40 Order name: Comprehensive Metabolic Panel [facility] 08/10 19:41 Order name: Protime (+INR) EDNC 08/10 19:41 Order name: PTT, Activated Partial Thromb EDNC 08/10 17:10 Order name: CT Abd/Pelvis - Without Contrast; Complete Time: 18:25 ec2 08/10 17:11 Order name: CT Head Brain wo Cont; Complete Time: 18:25 ec2 08/10 19:45 Order name: Abdomen 1 View (KUB) [facility] 08/10 19:45 Order name: Abdomen 1 View (KUB) [facility] 08/10 19:45 Order name: Abdomen 1 View (KUB) [facility] 08/10 19:45 Order name: Abdomen 1 View (KUB) [facility] 08/10 17:10 Order name: IV Saline Lock; Complete Time: 18:28 ec2 08/10 17:10 Order name: Labs collected and sent; Complete Time: 18:28 ec2 08/10 17:10 Order name: Cath; Complete Time: 17:31 ec2 Administered Medications: 18:34 Drug: Naloxone IVP 2 mg IVP once Route: IVP; Site: left hand; cm10 18:53 Follow up: Response: No adverse reaction; RASS: Alert and Calm (0) kc6 18:38 Drug: Ondansetron IVP 4 mg IVP once; over 2 minutes Route: IVP; Site: left hand; cm10 18:53 Follow up: Response: No adverse reaction; Nausea is decreased; Vomiting decreased kc6 19:03 Drug: NS 0.9% IV 1000 ml IV at 1000 ml once; to be given as a bolus over 60 minutes kc6 Route: IV; Rate: 1000 ml; Site: left hand; 22:20 Follow up: Response: No adverse reaction; IV Status: Completed infusion; IV Intake: al5 1000ml Disposition Summary: 08/10/24 18:53 Hospitalization Ordered Notes: Hospitalization Status: Inpatient Admission ec2 Provider: [place] ecAidee Condition: Stable ec2 Problem: new ec2 Symptoms: have improved ec2 Bed/Room Type: Standard ec2 Location: Intensive Care Unit(08/10/24 23:51) [facility] Room Assignment: 5-(08/10/24 23:51) [facility] Diagnosis - Small Bowel Obstruction ec2 Forms: - Medication Reconciliation Form ec2 - SBAR form ec2 - Leadership Thank You Letter ec2 Signatures: Dispatcher [employer] Edith Miguel RN RN kl Campbell, Kaitlyn, RN RN kc6 Tarsha Lester RN RN cm10 Miguel Angel Mabry MD MD 2 [facility] Jillian Gaspar RN al5 Corrections: (The following items were deleted from the chart) 18:53 2 :51 18:53 Telemetry/MedSurg (Inpatient) 2 [facility] : 23:[address] [place] [address]
--- NOTE | 2024-08-10 18:54 | ER ---
Nurse's Notes [facility] Name: Delmi Pool Age: 69 yrs Sex: Female : 1955 Arrival Date: 08/10/2024 Time: 17:08 Bed 3 Private MD: Diagnosis: Small Bowel Obstruction Presentation: 08/10 17:09 Chief complaint: EMS states: they were toned out by son for possible overdose. pt had kc6 her [place] 10mg filled on 08/08, Piyush. of 30, and there were only 4 left in the bottle for EMS. Coronavirus screen: At this time, the client does not indicate any symptoms associated with coronavirus-19. Ebola Screen: No symptoms or risks identified at this time. Initial Sepsis Screen: Does the patient meet any 2 criteria? No. Patient's initial sepsis screen is negative. Does the patient have a suspected source of infection? No. Patient's initial sepsis screen is negative. Risk Assessment: Do you want to hurt yourself or someone else? Patient reports no desire to harm self or others. Onset of symptoms was August 10, 2024. Care prior to arrival: Glucose check: 113. 17:09 Method Of Arrival: EMS: [facility] kc6 17:09 Acuity: GILBERTO 2 kc6 Historical: - Allergies: 17:11 Sulfa (Sulfonamide Antibiotics); kc6 17:11 Toradol; kc6 17:11 tramadol; kc6 - PMHx: 17:11 diabetes mellitus; Hypercholesterolemia; Hypertensive disorder; neuropathy; kc6 - PSHx: 17:11 Appendectomy; Bowel Retracement; section; Cholecystectomy; kc6 - Immunization history:: Adult Immunizations unknown. - Infectious Disease History:: Denies. - Social history:: Smoking status: Patient reports the use of cigarette tobacco products, smokes one pack cigarettes per day. Screenin:12 [facility] ED Fall Risk Assessment (Adult) History of falling in the last 3 months, kc6 including since admission No falls in past 3 months (0 pts) Confusion or Disorientation No (0 pts) Intoxicated or Sedated Yes (3 pts) Impaired Gait No (0 pts) Mobility Assist Device Used No (0 pt) Altered Elimination No (0 pt) Score/Fall Risk Level 3 or more points = High Risk Oriented to surroundings, Maintained a safe environment, Educated pt \T\ family on fall prevention, incl call for assistance when getting out of bed. Abuse screen: Denies threats or abuse. Denies injuries from another. Nutritional screening: No deficits noted. Tuberculosis screening: No symptoms or risk factors identified. Assessment: 17:08 General: Appears in no apparent distress. comfortable, slender, well groomed, well kc6 developed, Behavior is cooperative, drowsy. Pain: Complains of pain in abdomen. Neuro: Level of Consciousness is obeys commands, lethargic, Oriented to person, place, time, situation, Appropriate for age. Cardiovascular: Capillary refill < 3 seconds. Respiratory: Airway is patent Trachea midline Respiratory effort is even, unlabored, Respiratory pattern is regular, symmetrical. GI: Abdomen is flat, non-distended, Bowel sounds present X 4 quads. Reports lower abdominal pain, upper abdominal pain, Patient currently denies diarrhea, nausea, vomiting. : No signs and/or symptoms were reported regarding the genitourinary system. EENT: No signs and/or symptoms were reported regarding the EENT system. Derm: No signs and/or symptoms reported regarding the dermatologic system. Skin is intact, is healthy with good turgor, Skin is pink, warm \T\ dry. Musculoskeletal: No signs and/or symptoms reported regarding the musculoskeletal system. Circulation, motion, and sensation intact. Range of motion: intact in all extremities. 18:08 Reassessment: Patient appears in no apparent distress at this time. No changes from kc6 previously documented assessment. Patient and/or family updated on plan of care and expected duration. Pain level reassessed. 19:30 General: Appears in no apparent distress. comfortable, Behavior is cooperative, drowsy. al5 Pain: Complains of pain in abdomen. Neuro: Level of Consciousness is obeys commands, alert to verbal stimuli. Oriented to person, place, time, situation. Cardiovascular: Capillary refill < 3 seconds Patient's skin is warm and dry. Rhythm is sinus rhythm. Respiratory: Airway is patent Respiratory effort is even, unlabored, Respiratory pattern is regular, symmetrical. GI: Abdomen is flat, non-distended, Reports lower abdominal pain, upper abdominal pain. : No signs and/or symptoms were reported regarding the genitourinary system. EENT: No signs and/or symptoms were reported regarding the EENT system. Derm: Skin is intact, is healthy with good turgor, Skin is pink, warm \T\ dry. normal. Musculoskeletal: No signs and/or symptoms reported regarding the musculoskeletal system. Vital Signs: 17:09 BP 146 / 83; Pulse 85; Resp 18 S; Pulse Ox 94% on 2 lpm NC; Weight 54 kg (M); Height 5 kc6 ft. 0 in. (R); Pain 0/10; 17:57 BP 166 / 84; Pulse 88; Resp 18 S; Pulse Ox 98% on 2 lpm NC; kc6 19:00 BP 170 / 75; Pulse 89; Resp 21; Pulse Ox 95% on R/A; al5 19:30 BP 159 / 74; Pulse 86; Resp 21; Pulse Ox 94% on R/A; al5 17:09 Body Mass Index 23.25 (54.00 kg, 152.4 cm) kc6 17:09 Pain Scale: Adult [facility] ED Course: 17:09 Patient arrived in ED. kc6 17:10 Miguel Angel Mabry MD is Attending Physician. ec2 17:11 Triage completed. kc6 17:11 Arm band placed on. kc6 17:11 Patient has correct armband on for positive identification. Placed in gown. Bed in low kc6 position. Call light in reach. Side rails up X2. radiation monitor on. Pulse ox on. NIBP on. Door closed. Noise minimized. Lights dimmed. Pillow given. Verbal reassurance given. 17:12 Oxygen administration via nasal cannula \T\ 2L/min. kc6 17:31 Rayna Kidd RN is Primary Nurse. kc6 17:31 Urine collected: straight cath specimen, clear, Amount Returned: 700mL. Straight cath kc6 inserted, using sterile technique, 14 Fr. Specimen obtained. Returned clear yellow urine. Patient tolerated well. 17:[address] via stretcher. kc6 17:39 CT Abd/Pelvis - Without Contrast In Process Unspecified. EDMS 17:40 CT Head Brain wo Cont In Process Unspecified. EDMS 17:57 Missed attempt(s): 24 gauge in right wrist. Missed attempt(s): 22 gauge in left forearm.kc6 18:30 Initial lab(s) drawn, by me, sent to lab. Inserted saline lock: 22 gauge in left hand, iw using aseptic technique. Blood collected. Flushed with 10 mL NS. 18:53 Prince Greenfield MD is Hospitalizing Provider. ec2 19:03 Assisted with bedpan. Repositioned patient. Cleaned of incontinence. Linen changed. kc6 19:03 Report given to Bhavya Latif RN \T\ Jillian Rojas RN. kc6 19:30 Provided Education on: need for admission. al5 19:30 No provider procedures requiring assistance completed. al5 19:30 Patient admitted, IV remains in place. al5 Administered Medications: 18:34 Drug: Naloxone IVP 2 mg IVP once Route: IVP; Site: left hand; cm10 18:53 Follow up: Response: No adverse reaction; RASS: Alert and Calm (0) kc6 18:38 Drug: Ondansetron IVP 4 mg IVP once; over 2 minutes Route: IVP; Site: left hand; cm10 18:53 Follow up: Response: No adverse reaction; Nausea is decreased; Vomiting decreased kc6 19:03 Drug: NS 0.9% IV 1000 ml IV at 1000 ml once; to be given as a bolus over 60 minutes kc6 Route: IV; Rate: 1000 ml; Site: left hand; 22:20 Follow up: Response: No adverse reaction; IV Status: Completed infusion; IV Intake: al5 1000ml Medication: 19:30 VIS not applicable for this client. al5 Intake: 22:20 IV: 1000ml; Total: 1000ml. al5 Outcome: 18:53 Decision to Hospitalize by Provider. ec2 19:30 Admitted to ER Hold. Please see [facility] for further documentation. al5 19:30 Condition: stable 19:30 Instructed on the need for admit, 08/11 01:53 Patient left the ED. al5 Signatures: Dispatcher [employer] Piper Wade RN RN iw Rayna Kidd RN RN kc6 Tarsha Lester RN RN cm10 Miguel Angel Mabry MD MD 2 Jillian Gaspar RN RN al5 Corrections: (The following items were deleted from the chart) 01:50 08/10 21:00 Provided Education on: need for admission. al5 al5
[2024-08-10] MEDS ORDERED: NA CHLORIDE 0.9% 1,000 ML ONE ×2 (18:55→22:08)
[2024-08-10] MEDS ORDERED: SODIUM CHLORIDE 0.9% 10ML INJ IV PRN (19:43)
--- NOTE | 2024-08-10 19:43 | P.HP ---
Certification for Inpatient Patient admitted to: Inpatient With expected LOS: >2 Midnights Practitioner: I am a practitioner with admitting privileges, knowledge of patient current condition, hospital course, and medical plan of care. Services: Services provided to patient in accordance with Admission requirements found in Title 42 Section 412.3 of the Code of Federal Regulations Patient History Date of Service: 08/10/24 Reason for admission: Bowel obstruction History of Present Illness: Patient is a 69-year-old female who is being admitted for abdominal pain later found to have bowel obstruction. She has a history of chronic pain and is currently on hydrocodone. CT abdomen and pelvis showed High-grade small bowel obstruction with transition point in the central abdomen along the distal ileum. Dr. Lester from surgery has been consulted. Basic labs are benign except for mild hyponatremia with a sodium of 131. During my evaluation the ER, patient had already have 1 bowel movement. She is very lethargic. Allergies ketorolac [From Toradol] Allergy (Verified 07/30/24 20:48) Itching/Hives/Rash Sulfa (Sulfonamide Antibiotics) Allergy (Verified 07/30/24 20:48) Itching/Hives/Rash tramadol Allergy (Verified 07/30/24 20:48) Shortness of breath Home Medications: RX: Gabapentin 800 mg PO TID 06/10/23 RX: Losartan Potassium 50 mg PO DAILY AFTER SUPPER 06/10/23 RX: Clopidogrel Bisulfate [Plavix*] 75 mg PO DAILY #30 tab 07/25/24 RX: Hydrocodone 7.5/APAP 325 [[place] 7.5/325 mg*] 1 tab PO Q4H PRN #15 tab 07/25/24 RX: Sodium Chloride Tab [Sodium Chloride*] 1 gm PO BIDWM #60 tab 07/25/24 RX: carvediloL [Coreg*] 3.125 mg PO BID 6AM 6PM #60 tab 07/25/24 Hydrocodone 5/APAP 325 [[place] 5/325] 1 tab PO Q12H PRN #30 tab 08/03/24 Metoclopramide [Reglan] 5 mg PO AC #90 tab 08/03/24 RX: Erythromycin Base [Erythromycin] 250 mg PO TID #20 tab 08/03/24 RX: Ondansetron [Zofran (Odt)*] 4 mg PO Q6H PRN #30 tab 08/03/24 RX: Pantoprazole [Protonix Tab*] 40 mg PO DAILY 30 Days #30 tab 08/03/24 clonazePAM [Klonopin] 0.5 mg PO TID PRN #30 tab 08/03/24 Hydrocodone 10/APAP 325 [[place] 10/325] 1 tab PO Q6H PRN #30 tab 08/08/24 Hydrocodone 10/APAP 325 [[place] 10/325] 1 tab PO Q6H PRN #30 tab 08/08/24 - Past Medical/Surgical History Diabetic: No -: NIDDM2 -: HTN -: GERD -: Chronic pain -: Hyponatremia -: SBO -: hysterectomy -: -: bowel resection -: Gallbladder Psychosocial/ Personal History: Lives in her home with her Son and his - Family History Father -: Other (see notes) Notes: thought to have from cancer Mother -: Other (see notes) Notes: spinal stenosis Brother -: Heart disease, Diabetes Notes: stents. stenosis Sister -: Blood disorders Notes: form of leukemia - Social History Alcohol use: No CD- Drugs: No Caffeine use: Yes Physical Examination - Physical Exam General: Acute distress HEENT: Atraumatic, Normocephalic Cardiovascular: No edema, Normal pulses, Regular rate/rhythm, Normal S1 S2 Gastrointestinal: Distended, Tenderness - Studies Laboratory Data (last 24 hrs) 08/10/24 08/10/24 18:28 18:28 WBC 8.20 Hgb 14.2 Hct 42.7 Plt Count 232 Sodium 131 L Potassium 4.3 BUN 14 Creatinine 0.49 L Glucose 130 H Total Bilirubin 0.4 AST 118 H ALT 54 Alkaline Phosphatase 93 Lipase 23 Assessment and Plan - Problems (Diagnosis) (1) Small bowel obstruction Current Visit: Yes Status: Acute (2) Abdominal pain Current Visit: No Status: Acute Qualifiers: (3) Hyponatremia Current Visit: No Status: Acute (4) GERD (gastroesophageal reflux disease) Current Visit: No Status: Chronic Qualifiers: (5) HTN (hypertension) Current Visit: No Status: Chronic - Plan Assessment This is a 69-year-old female who is being admitted for small bowel obstruction after she presented with abdominal pain. She has chronic pain and is currently on hydrocodone. CT abdomen and pelvis revealed a high-grade small bowel obstruction. Patient's does not have significant electrolyte abnormalities. She had 1 bowel movement in the ER. General surgery has been consulted. Small bowel obstruction Chronic pain Hyponatremia Plan: Will admit inpatient with telemetry Volume repletion and antiemetic N.p.o. for bowel rest General Surgery has been consulted As needed IV hydralazine in case of hypertension Serial abdominal exam and x-ray - Advance Directives Does patient have a Living Will: No Does patient have a Durable POA for Healthcare: No
[2024-08-10] MEDS ORDERED: PANTOPRAZOLE 40 MG INJ ONE (22:08)
[2024-08-10] MEDS: PANTOPRAZOLE 40 MG INJ IVP SCH (22:15)
[2024-08-10] MEDS: NA CHLORIDE 0.9% 1,000 ML IV SCH (22:15)
[2024-08-11 06:01] LABS: PTT, Activated Partial Thromb 27.1 SECONDS (27.2-37.4); Protime INR 0.96
[2024-08-11 06:07] LABS: Absolute Lymphocytes (CBC) 1.5 K/uL (0.7-4.9); Absolute Monocytes 0.6 K/uL (0.1-1.3); Basophils % 0.4 % (0-1.3); Eosinophils % 0.2 % (0-4.4); Hematocrit 37.7 % (36.0-45.0); Hemoglobin 12.9 g/dL (12.0-15.0); MCH 33.1 pg (27.0-35.0); MCHC 34.3 g/dL (32.0-36.0); MCV 96.7 fL (80-100); MPV 7.4 fL (7.6-11.3); Monocytes % 10.9 % (3.3-12.3); Neutrophils % 59.5 % (41.7-73.7); Platelets 223 thou/uL (152-406); Red Cell Distribution Width 14.4 % (12.1-15.2)
[2024-08-11 06:11] LABS: Albumin 2.6 g/dL (3.4-5.0); Albumin/Globulin Ratio 0.9 (1.1-1.8); Anion Gap 8.9 mEq/L (5.0-15.0); Bilirubin Total 0.4 mg/dL (0.2-1.0); Globulin 2.9 g/dL (2.3-3.5); Magnesium 1.9 mg/dL (1.6-2.4); Phosphorus 3.4 mg/dL (2.5-4.9); Potassium 3.9 mEq/L (3.5-5.1); Protein, Total 5.5 g/dL (6.4-8.2)
[2024-08-11] MEDS: POTASSIUM 25 MEQ EFFERV TAB PO ONE (06:45)
[2024-08-11] MEDS: KCL 20 MEQ/100 mL IVPB 20 MEQ/100 ML BAG IV SCH (07:32)
--- NOTE | 2024-08-11 07:41 | RAD REPORT ---
EXAM: XR of the abdomen HISTORY: Abdominal pain SBO COMPARISON: 07/22/2024 FINDINGS: XR of the abdomen shows a nonspecific, nonobstructive bowel gas pattern. A few slightly pro minent small bowel loops in the left lower quadrant. No suspicious calcifications are seen. The bones are unremarkable. Moderate stool in the colon. IMPRESSION: No bowel obstruction pattern seen.
[2024-08-11] MEDS: MORPHINE 2 MG/ML SYR IV PRN (09:00)
--- NOTE | 2024-08-11 13:23 | P.PN ---
Subjective Date of Service: 08/11/24 Chief Complaint: Bowel obstruction Subjective: No chest pain or shortness of breath. No nausea or vomiting. c/o abdominal pain. No obvious bleeding. Looks comfortable in the bed. Had a Bowel movement today. Objective: General appearance: Alert and comfortable CVS: Normal S1 and S2 Lungs: Clear to auscultation bilaterally Abdomen: Soft, bowel sounds present, mild tenderness all over Extremities: No lower extremity edema Physical Examination - Vital Signs Temperature: 97.6 F Blood Pressure: 125/61 Pulse: 85 Respirations: 18 Pulse Ox (%): 96 - Studies Laboratory Data (last 24 hrs) 08/10/24 08/10/24 18:28 18:28 WBC 8.20 Hgb 14.2 Hct 42.7 Plt Count 232 Sodium 131 L Potassium 4.3 BUN 14 Creatinine 0.49 L Glucose 130 H Total Bilirubin 0.4 AST 118 H ALT 54 Alkaline Phosphatase 93 Lipase 23 Assessment And Plan - Plan Assessment This is a 69-year-old female who is being admitted for small bowel obstruction after she presented with abdominal pain. She has chronic pain and is currently on hydrocodone. CT abdomen and pelvis revealed a high-grade small bowel obstruction. 1. Small bowel obstruction: cont NPO, surgery consulted, management as per surgical team. 2. Chronic pain: As needed pain medications for now. 3. Hyponatremia: Improved with hydration. 4. HTN: Resume Coreg soon, continue as needed hydralazine for now. 5. GERD: Continue PPI. Plan discussed with the patient and nursing staff, discussed with the case manage team.
--- NOTE | 2024-08-11 20:54 | CON ---
History Of Present Illness: This patient was seen this morning due to small bowel obstruction. This is the case of a female that she claims she has history in the past of bowel obstruction. The histo ry on her is difficult to get. She does not have recollections of much of the history. She just not iced that last night she ate something and then developed abdominal pain. She gets large amount of p ain medication and then she comes to the ER and as per nurse's staff, have to be reversed off the daniel cotics, and she understand how dangerous that is and then she has pain in different parts of her body that include the abdomen during the CAT scan, found to have a small bowel obstruction and a surgical consult was obtained. She claimed that the surgery she had a hysterectomy through a midline incisio n and then she claimed a bowel resection, although I have not seen a midline incision other than infr aumbilical. I am trying to find out if there is any complication with it, she does not recall. It w as done in [place], she believes. This surgery was done a long time ago. She has not had any iss ues. She claimed that they did the bowel resection because of the blockage. She feels better now. Last night was the worst. At this moment, she has no nausea, no vomiting. She is passing gas and th e abdomen is soft and depressible, feels better, and chest clear. Abdomen soft and depressible. Inf raumbilical incision. No guarding or rebound tenderness. Bowel sounds are positive. Extremities go od capillary refill. Allergies: INCLUDE SULFA AND TRAMADOL. Medical Problems: As above. Past Surgical History: As above. Social History: She does not smoke. She does not drink alcohol. Family History: Noncontributory. Colonoscopy, she does not remember, unable to recall. Vital signs reviewed. Review of Systems: Yesterday, nausea, vomiting, abdominal pain. Today, the abdominal pain is better. No dysuria, hemat uria, hematochezia, or melena. No recent traveling out of the country. No family member sick at sergo e. Review of systems 10 points otherwise unremarkable. Physical Examination: Vital Signs: Reviewed. General: Patient is awake and alert. No distress. She is cooperative. She does not have much moraima llection of her past medical history, but she is not confused. Chest: Clear. Abdomen: Soft and depressible. No guarding or rebound. She has mild generalized abdominal pain, bu t once again you touch with any extremities, she feel the same way. Rectal: Deferred. Pelvic: Deferred. Breasts: Deferred. Laboratory Data: Blood work shows WBC count of 8.2, hemoglobin of 14.2, and platelets of 232. Chemi stry: Sodium is 131, bicarb is 26. A CAT scan of the abdomen and pelvis done yesterday shows per Dr Lashae Avalos finding of high-grade small bowel obstruction with transition point in the central abdomen a long the distal ileum. Today, abdominal x-rays shows per Dr. Khan, x-ray of the abdomen shows nonsp ecific nonobstructive bowel gas pattern. A few prominent small bowel loops, left lower quadrant. No evidence of bowel obstruction. Moderate amount of stools. Assessment: A 69-year-old patient who came to us with abdominal pain last night. She is passing no w gas, having bowel movement, and the abdomen is soft and depressible. The x-ray shows no bowel obst ruction pattern. We have 2 options. If she wants to eat, we can start with liquid diet and see how she develops clinically. If not, small bowel series may also be done to clarify this. Clinically, s he is improving. So, we will discuss with the primary doctor to see which option he thinks from the medica l standpoint apply to her. NUHA/HEBER Voice ID: [id number] Report ID: [id number]
[2024-08-12] MEDS: ALBUTEROL 2.5 MG/3 ML NEB SOL NEB PRN (01:44)
[2024-08-12] MEDS: ONDANSETRON 4 MG/2 ML VIAL IV PRN (01:51)
[2024-08-12] MEDS: HYDROMORPHONE HCL 1 MG/ML INJ IV ONE (05:42)
[2024-08-12 06:18] LABS: Absolute Lymphocytes (CBC) 1.4 K/uL (0.7-4.9); Absolute Monocytes 0.4 K/uL (0.1-1.3); Absolute Neutrophil 2.8 K/uL (1.8-8.0); Basophils % 0.6 % (0-1.3); Eosinophils % 0.6 % (0-4.4); Hematocrit 35.4 % (36.0-45.0); Hemoglobin 12.2 g/dL (12.0-15.0); Lymphocytes % 30.6 % (15.3-44.8); MCH 33.3 pg (27.0-35.0); MCHC 34.6 g/dL (32.0-36.0); MCV 96.3 fL (80-100); MPV 7.5 fL (7.6-11.3); Monocytes % 8.9 % (3.3-12.3); Neutrophils % 59.3 % (41.7-73.7); Nucleated Red Blood Cells % 0.2 % (0-0); Platelets 212 thou/uL (152-406); RBC Red Blood Cell Count 3.67 M/uL (3.86-4.86); Red Cell Distribution Width 14.4 % (12.1-15.2)
[2024-08-12 06:43] LABS: Anion Gap 11.4 mEq/L (5.0-15.0); BUN Blood Urea Nitrogen 4 mg/dL (7-18); Bicarbonate 23 mEq/L (21-32); Glucose Level 100 mg/dL (74-106); Magnesium 1.7 mg/dL (1.6-2.4); Phosphorus 2.4 mg/dL (2.5-4.9); Potassium 3.4 mEq/L (3.5-5.1); Sodium Level 137 mEq/L (136-145)
[2024-08-12 06:49] LABS: Glomerular Filtration Rate 121 ml/min (=/>90)
[2024-08-12] MEDS: POTASSIUM PHOS IN 0.9 % NACL 15 MMOL/250 ML BAG IV ONE ×2 (07:56→11:37)
[2024-08-12] MEDS: MAGNESIUM SULFATE 1 gm IVPB 1 GM/100 ML BAG IV ONE (07:56)
--- NOTE | 2024-08-12 08:05 | RAD REPORT ---
EXAM: XR of the abdomen HISTORY: Abdominal pain SBO COMPARISON: 08/11/2024 FINDINGS: XR of the abdomen shows several mildly gas small bowel filled loops in left abdomen.. This could indicate a low-grade partial mechanical obstruction or ileus. No pneumoperitoneum. Cholecystectomy clips.
[2024-08-12] MEDS: carvediloL 3.125 MG TAB PO ONE (10:30)
[2024-08-12] MEDS: HYDROCODONE/APAP 10/325 TAB PO PRN (10:31)
[2024-08-12] MEDS: METOCLOPRAMIDE 5 MG TAB PO SCH (11:37)
[2024-08-12] MEDS ORDERED: SODIUM CHLORIDE 1 GM TAB PO SCH (12:00)
--- NOTE | 2024-08-12 12:33 | P.PN ---
Subjective Date of Service: 08/12/24 Chief Complaint: Bowel obstruction Subjective: No chest pain or shortness of breath. No nausea or vomiting. c/o abdominal pain. No obvious bleeding. Looks comfortable in the bed. Had a Bowel movement today. Objective: General appearance: Alert and comfortable CVS: Normal S1 and S2 Lungs: Clear to auscultation bilaterally Abdomen: Soft, bowel sounds present, mild tenderness all over Extremities: No lower extremity edema Physical Examination - Vital Signs Temperature: 98.8 F Blood Pressure: 155/87 Pulse: 89 Respirations: 18 Pulse Ox (%): 96 Assessment And Plan - Plan Assessment This is a 69-year-old female who is being admitted for small bowel obstruction after she presented with abdominal pain. She has chronic pain and is currently on hydrocodone. CT abdomen and pelvis revealed a high-grade small bowel obstruction. 1. Small bowel obstruction: NPO until cleared by surgery, surgery consult on board, appreciate recs, waiting to hear from surgery about starting liquids today. 2. Chronic pain: As needed pain medications for now. 3. Hyponatremia: Improved with hydration. 4. HTN: Resume Coreg soon, continue as needed hydralazine for now. 5. GERD: Continue PPI. 6. Hypokaalemia, hypophosphatemia: Replace and monitor. Plan discussed with the patient and nursing staff, discussed with the case manage team.
[2024-08-12] MEDS: MORPHINE 2 MG/ML SYR IV PRN (14:44)
[2024-08-12] MEDS: clonazePAM 0.5 MG TAB PO PRN (14:45)
[2024-08-12] MEDS: SODIUM CHLORIDE 1 GM TAB PO SCH (16:23)
[2024-08-12] MEDS: HYDROMORPHONE HCL 0.5 MG/0.5 ML INJ IV PRN (16:46)
--- NOTE | 2024-08-12 18:22 | RAD REPORT ---
EXAMINATION: CT ABDOMEN AND PELVIS WITHOUT CONTRAST CLINICAL INDICATION: Abdominal pain TECHNIQUE: CT abdomen and pelvis was performed, as per department protocol. IV contrast not administe red. Oral contrast given..Axial, sagittal and coronal reconstructions were obtained. One or more of the following dose reduction techniques were used: Automated exposure control, adjustment of the mA a nd/or kV according to the patient size, and/or iterative reconstruction. Unless otherwise specified, incidental findings do not require dedicated imaging follow-up. [id number]. COMPARISON: August 10, 2024. FINDINGS: The lack of intravenous contrast limits evaluation of solid organs and vessels. Small right pleural effusion Cholecystectomy Liver, spleen, pancreas, adrenals and kidneys grossly normal Dilated loop of small bowel within the right pelvis measures 4 cm. It previously measured 5.6 cm. It contains surgical suture. The remainder of the small bowel caliber is upper limits normal. There is narrowing of the lumen of a loop of small bowel within the right pelvis. Edema has developed within t he adjacent mesenteric leaves in this region. Small amount of additional ascites No evidence of diverticulitis No free air IMPRESSION: Marked narrowing of the lumen of a small bowel loop within the lower right pelvis with thickened wall could be secondary to stricture or inflammation. The fluid within the mesenteric leaves could indicate inflammation Dilated small bowel loop within the right pelvis has diminished from 5.6 cm to 4 cm. Most of the jose shanda of the small bowel is upper limits normal caliber. The small bowel appearance could be secondary to a partial obstruction or inflammation. A complete ob struction is not present.
[2024-08-12] MEDS: PROMETHAZINE INJ 25 MG/ML AMP IV ONE (19:22)
[2024-08-12] MEDS: KCL 20 MEQ/100 mL IVPB 20 MEQ/100 ML BAG IV SCH (23:28)
[2024-08-13 05:32] VITALS: BMI 23.1
[2024-08-13 06:19] LABS: Absolute Eosinophils 0.1 K/uL (0-0.5); Absolute Lymphocytes (CBC) 1.6 K/uL (0.7-4.9); Absolute Monocytes 0.4 K/uL (0.1-1.3); Absolute Neutrophil 1.7 K/uL (1.8-8.0); Hematocrit 33.3 % (36.0-45.0); Hemoglobin 11.4 g/dL (12.0-15.0); Lymphocytes % 41.5 % (15.3-44.8); MCH 33.4 pg (27.0-35.0); MCHC 34.4 g/dL (32.0-36.0); MPV 7.3 fL (7.6-11.3); Monocytes % 10.7 % (3.3-12.3); Neutrophils % 44.8 % (41.7-73.7); Nucleated Red Blood Cells % 0.1 % (0-0); Platelets 219 thou/uL (152-406); RBC Red Blood Cell Count 3.43 M/uL (3.86-4.86); Red Cell Distribution Width 14.2 % (12.1-15.2)
[2024-08-13 06:39] LABS: Anion Gap 9.4 mEq/L (5.0-15.0); BUN Blood Urea Nitrogen 3 mg/dL (7-18); Bicarbonate 24 mEq/L (21-32); Glucose Level 83 mg/dL (74-106); Magnesium 1.9 mg/dL (1.6-2.4); Phosphorus 3.3 mg/dL (2.5-4.9); Potassium 3.4 mEq/L (3.5-5.1); Sodium Level 137 mEq/L (136-145)
[2024-08-13 06:44] LABS: Glomerular Filtration Rate 121 ml/min (=/>90)
[2024-08-13] MEDS: MAGNESIUM SULFATE 1 gm IVPB 1 GM/100 ML BAG IV ONE (07:40)
[2024-08-13] MEDS: CLOPIDOGREL 75 MG TABLET PO SCH (07:55)
[2024-08-13] MEDS: POTASSIUM CL SA 10 MEQ TAB PO ONE (08:08)
--- NOTE | 2024-08-13 08:53 | RAD REPORT ---
EXAM: XR Abdomen 1 View (KUB) HISTORY: SBO COMPARISON: 08/12/[address] abdomen and pelvis 08/13/2019 FINDINGS: Single view of the abdomen shows a nonspecific, nonobstructive bowel gas pattern. Orally in gested contrast seen on the CT has now progressed to opacify the colon, with minimal residual contrast in the small bowel. No suspicious calcifications are seen. The bones are unremarkable. IMPRESSION: Nonobstructive bowel gas pattern with progression of orally ingested contrast is above, suggesting im proving ileus or obstruction.
--- NOTE | 2024-08-13 13:28 | P.PN ---
Subjective Date of Service: 08/13/24 Chief Complaint: Bowel obstruction Subjective: No chest pain or shortness of breath. No nausea or vomiting. c/o abdominal pain but little better. No obvious bleeding. Looks comfortable in the bed. Had a Bowel movement yesterday. Objective: General appearance: Alert and comfortable CVS: Normal S1 and S2 Lungs: Clear to auscultation bilaterally Abdomen: Soft, bowel sounds present, minimal tenderness iin periumbilical area, better than yesterday Extremities: No lower extremity edema Physical Examination - Vital Signs Temperature: 98.4 F Blood Pressure: 152/75 Pulse: 71 Respirations: 16 Pulse Ox (%): 95 Assessment And Plan - Plan Assessment This is a 69-year-old female who is being admitted for small bowel obstruction after she presented with abdominal pain. She has chronic pain and is currently on hydrocodone. CT abdomen and pelvis revealed a high-grade small bowel obstruction. 1. Small bowel obstruction: surgery consult on board, appreciate recs -liquids as per surgical team, advance as toleated, reepat CT 08/12 show somoe improvement in bowel dilatation 2. Chronic pain: As needed pain medications for now. 3. Hyponatremia: Improved with hydration. 4. HTN: Resumed Coreg, monitor BP closely 5. GERD: Continue PPI. 6. Hypokaalemia, hypophosphatemia: Replaced, monitor. Plan discussed with the patient and nursing staff, discussed with the case manage team.
--- NOTE | 2024-08-13 19:46 | PN ---
Date of Progress Note: 08/13/2024 Diagnoses: Small bowel obstruction, abdominal pain. Subjective: The patient feels better. No nausea, no vomiting today. Tolerating a liquid diet. Objective: Chest: Clear. Abdomen: Soft and depressible. No guarding or rebound. Extremities: Good capillary refill. Laboratory Data: Blood work reviewed. Plan: Advance diet slowly, ambulation. HM/MODL Voice ID: [id number] Report ID: [id number]
[2024-08-14 05:45] LABS: Absolute Eosinophils 0.1 K/uL (0-0.5); Absolute Lymphocytes (CBC) 1.1 K/uL (0.7-4.9); Absolute Monocytes 0.4 K/uL (0.1-1.3); Basophils % 1.4 % (0-1.3); Eosinophils % 2.3 % (0-4.4); Hematocrit 36.3 % (36.0-45.0); Hemoglobin 12.3 g/dL (12.0-15.0); Lymphocytes % 29.6 % (15.3-44.8); MCHC 33.8 g/dL (32.0-36.0); MCV 97.6 fL (80-100); MPV 6.9 fL (7.6-11.3); Monocytes % 12.1 % (3.3-12.3); Neutrophils % 54.6 % (41.7-73.7); Platelets 230 thou/uL (152-406); RBC Red Blood Cell Count 3.72 M/uL (3.86-4.86); Red Cell Distribution Width 13.9 % (12.1-15.2)
[2024-08-14 05:55] LABS: Anion Gap 7.4 mEq/L (5.0-15.0); Magnesium 1.7 mg/dL (1.6-2.4); Phosphorus 4.1 mg/dL (2.5-4.9); Potassium 4.4 mEq/L (3.5-5.1)
[2024-08-14] MEDS: MAGNESIUM SULFATE 1 gm IVPB 1 GM/100 ML BAG IV ONE (06:06)
[2024-08-14 08:27] VITALS: BP 94/76; TEMP 97.9
[2024-08-14 08:31] VITALS: O2SAT 97
--- NOTE | 2024-08-14 11:32 | P.PN ---
Subjective Date of Service: 08/14/24 Chief Complaint: Bowel obstruction Subjective: Tolerating diet, Improving Review of Systems Cardiovascular: Unremarkable Gastrointestinal: Nausea (no), Vomiting (no), No Distention Genitourinary: As per HPI Physical Examination - Vital Signs Temperature: 97.9 F Blood Pressure: 94/76 Pulse: 72 Respirations: 15 Pulse Ox (%): 96 - Physical Exam General: Alert, In no apparent distress, Oriented x3, Cooperative HEENT: Normocephalic, PERRLA Neck: Supple Gastrointestinal: Normal bowel sounds, No rebound, No guarding, Tenderness (improving) Assessment And Plan - Plan advance diet oob
--- NOTE | 2024-08-14 12:11 | P.PN ---
Subjective Date of Service: 08/14/24 Chief Complaint: Bowel obstruction Subjective: No chest pain or shortness of breath. No nausea or vomiting. c/o abdominal pain but little better. No obvious bleeding. Looks comfortable in the bed. Had a Bowel movement today. Objective: General appearance: Alert and comfortable CVS: Normal S1 and S2 Lungs: Clear to auscultation bilaterally Abdomen: Soft, bowel sounds present, minimal tenderness in periumbilical area, better than yesterday Extremities: No lower extremity edema Physical Examination - Vital Signs Temperature: 97.9 F Blood Pressure: 94/76 Pulse: 72 Respirations: 15 Pulse Ox (%): 96 Assessment And Plan - Plan Assessment This is a 69-year-old female who is being admitted for small bowel obstruction after she presented with abdominal pain. She has chronic pain and is currently on hydrocodone. CT abdomen and pelvis revealed a high-grade small bowel obstruction. 1. Small bowel obstruction: surgery consult on board, appreciate recs -advance dietas per surgical team -reepat CT 08/12 show some improvement in bowel dilatation -has BM everyday 2. Chronic pain: As needed pain medications for now. 3. Hyponatremia: Improved with hydration. 4. HTN: Resumed Coreg, monitor BP closely 5. GERD: Continue PPI. 6. Hypokalemia, hypophosphatemia: Replaced, monitor. Plan discussed with the patient and nursing staff
[2024-08-14] MEDS: HYDRALAZINE HCL 20 MG/ML VIAL IV PRN (12:21)
[2024-08-14] MEDS ORDERED: HYDROMORPHONE HCL 0.5 MG/0.5 ML INJ IV PRN (16:24)
--- NOTE | 2024-08-15 10:23 | P.DS ---
Admission Date: 08/10/24 Discharge Date: 08/14/24 Disposition: AMA-LEFT AGAINST MEDICAL ADVIC Reason for Admission: Bowel obstruction Hospital Course: This is a 69-year-old female who is being admitted for small bowel obstruction after she presented with abdominal pain. She has chronic pain and is currently on hydrocodone. CT abdomen and pelvis revealed a high-grade small bowel obstruction. 1. Small bowel obstruction: surgery consult on board, appreciate recs -advance dietas per surgical team -reepat CT 08/12 show some improvement in bowel dilatation -has BM everyday 2. Chronic pain: As needed pain medications 3. Hyponatremia: Improved with hydration. 4. HTN: on Coreg 5. GERD: on PPI. 6. Hypokalemia, hypophosphatemia: Replaced Hospital course: 69-year-old patient admitted with small bowel obstruction, surgical team was consulted, initially she was n.p.o., when she was clinically getting better, she was started on liquid diet and diet was slowly advancing, she was requesting a lot of pain medications, our plan was to advance her diet slowly and discharge her when she tolerates diet but unfortunately she left AGAINST MEDICAL ADVICE before we could safely discharge her. We were not able to provide any discharge instructions or follow-ups to her as she left AMA. Vital Signs/Physical Exam: Temp Pulse Resp BP Pulse Ox 97.9 F 72 16 94/76 96 08/14/24 12:10 08/14/24 12:10 08/14/24 15:47 08/14/24 12:10 08/14/24 15:47 Laboratory Data at Discharge: WBC 3.60 thou/uL (4.3-10.9) L 08/14/24 05:20 Hgb 12.3 g/dL (12.0-15.0) 08/14/24 05:20 Hct 36.3 % (36.0-45.0) 08/14/24 05:20 Plt Count 230 thou/uL (152-406) 08/14/24 05:20 PT 11.0 SECONDS (10-13.0) 08/11/24 05:24 INR 0.96 08/11/24 05:24 APTT 27.1 SECONDS (27.2-37.4) L 08/11/24 05:24 Sodium 139 mEq/L (136-145) 08/14/24 05:20 Potassium 4.4 mEq/L (3.5-5.1) 08/14/24 05:20 BUN 3 mg/dL (7-18) L 08/14/24 05:20 Creatinine 0.38 mg/dL (0.55-1.02) L 08/14/24 05:20 Glucose 101 mg/dL (74-106) 08/14/24 05:20 Phosphorus 4.1 mg/dL (2.5-4.9) 08/14/24 05:20 Magnesium 1.7 mg/dL (1.6-2.4) 08/14/24 05:20 Total Bilirubin 0.4 mg/dL (0.2-1.0) 08/11/24 05:24 AST 121 U/L (15-37) H 08/11/24 05:24 ALT 51 U/L (13-56) 08/11/24 05:24 Alkaline Phosphatase 75 U/L (45-117) 08/11/24 05:24 Lipase 23 U/L (13-75) 08/10/24 18:28 Home Medications: Clopidogrel Bisulfate [Plavix*] 75 mg PO DAILY #30 tab 07/25/24 Sodium Chloride Tab [Sodium Chloride*] 1 gm PO BIDWM #60 tab 07/25/24 carvediloL [Coreg*] 3.125 mg PO BID 6AM 6PM #60 tab 07/25/24 Metoclopramide [Reglan] 5 mg PO AC #90 tab 08/03/24 Pantoprazole [Protonix Tab*] 40 mg PO DAILY 30 Days #30 tab 08/03/24 clonazePAM [Klonopin] 0.5 mg PO TID PRN #30 tab 08/03/24 Hydrocodone 10/APAP 325 [[place] 10/325] 1 tab PO Q6H PRN #30 tab 08/08/24 Followup: NONE,NONE [Primary Care Provider] -
== END 2024-08-14 16:45 | disposition left against medical advice (07) | DRG 389 ==
LOC: ER 17:08 → ERHOLD 19:37 → 3RD-ICU 08-11 00:22
PROVIDERS: ADMIT Internal Medicine; ATTEND Hospitalist
DX: K56.609 Unspecified intestinal obstruction, unspecified as to partial versus complete obstruction (principal); E87.1 Hypo-osmolality and hyponatremia; E11.40 Type 2 diabetes mellitus with diabetic neuropathy, unspecified; I10 Essential (primary) hypertension; E87.6 Hypokalemia; G89.29 Other chronic pain; E83.39 Other disorders of phosphorus metabolism; K21.9 Gastro-esophageal reflux disease without esophagitis; E78.00 Pure hypercholesterolemia, unspecified; F17.210 Nicotine dependence, cigarettes, uncomplicated; Z88.5 Allergy status to narcotic agent; Z88.2 Allergy status to sulfonamides; Z90.49 Acquired absence of other specified parts of digestive tract; Z53.29 Procedure and treatment not carried out because of patient's decision for other reasons; Z79.899 Other long term (current) drug therapy
CPT/HCPCS: 36415; 51702; 70450; 74018; 74176; 80048; 80053; 81001; 82947; 83605; 83690; 83735; 84100; 84132; 85025; 85610; 85730; 94640; 96361; 96374; 96375; 99285; J0360; J1171; J2270; J2310; J2405; J2470; J2550; J3475; J3480; J7030; J7613